=== PATIENT | male | born 1965 | race Caucasian/White ===

== ENCOUNTER → 2017-07-21 16:18 | Outpatient (CLI) | payer BC, SELFPAY ==
--- NOTE | 2017-07-08 | CYST_PTH ---
PATIENT: MITESH THOMPSON LOC: [facility] U#:[id number] AGE/SX: 59/M ROOM: RE07/21/[address]: Dr. Nguyễn Felder MD : 1965 BED: DIS: SPEC #: [id number] RECD: 07/08/17 13:28 STATUS: ZACHARY EASTMANAditi #: [id number] MARV: 07/08/17 00:[address]: Nguyễn Felder DEPT: SURGICAL PATHOLOGY RECD BY: Marcelino Chen ENTERED: 07/10/17 08:06 SP TYPE: Cyst OTHR DR: Dr. Nguyễn Markham MD Tissues: Neck, NOS Procedures: Surgery Specimen Level IV HEADER OPERATION: Cyst, left side of neck PRE-OP DIAGNOSIS: Cyst, left side of neck TISSUE SUBMITTED: Cyst, left side of neck MICROSCOPIC DIAGNOSIS Cyst, left side of neck, biopsy: Fragments of superficial epidermis. See comment. AM:kenya 07/11/17 COMMENT The findings are consistent with an epidermal inclusion cyst. Clinical correlation is necessary. MICROSCOPIC DESCRIPTION Slides are reviewed. GROSS DESCRIPTION Received in fixative is one container labeled with the patient's name and designated cyst, left side of neck. The specimen consists of multiple irregular fragments of knott tissue that in aggregate measure 2.2 x 0.6 x 0.2 cm. The specimen is totally submitted in one cassette. / AM:kenya 07/10/17 TC:5 CPT: 02199
== END ==
PROVIDERS: Family Provider Family Medicine; PCP Family Medicine; Visit Provider Family Medicine
DX: L72.0 Epidermal cyst (principal)
CPT/HCPCS: 87070; 87077; 87186; 87205; 88304; 88305

== ENCOUNTER 2017-11-09 08:15 | Outpatient (RCR) | payer BC, SELFPAY ==
[2017-11-02 09:33] VITALS: BP 130/89; PULSE 98; RESP 20; TEMP 37.3; BMI 50.8
--- NOTE | 2017-11-02 11:18 | RAD_ITS ---
STUDY: X-RAY - LEFT FOOT CLINICAL: Male, 51 years old. Great toe injury TECHNIQUE: 3 view(s) of the foot. COMPARISON: None. FINDINGS: There is pes planus. There are degenerative changes with joint space narrowing of the talocalcaneal articulation. There are degenerative changes or joint space narrowing of the calcaneocuboid joint. There are degenerative changes of the first metatarsophalangeal joint with bunion formation of the first metatarsal head. There is no evidence of fracture or dislocation. The osseous structures of the first digital ray appear intact. The soft tissue structures are unremarkable. RAD/Foot min 3 Views IMPRESSION: 1. Pes planus. 2. Degenerative changes as detailed above. 3. Degenerative changes of the first metatarsophalangeal joint with first metatarsal head bunion formation. There is no evidence of fracture or dislocation. No soft tissue gas or radiopaque foreign body is seen. Electronically Signed: Jayme Cox MD at 18:02 EDT , Service support ,
--- NOTE | 2017-11-02 11:18 | RAD_ITS ---
STUDY: X-RAY LEFT FOOT, FIRST TOE REASON FOR EXAM: Male, 51 years old. Trauma TECHNIQUE: 3 view(s) of the toe were obtained. COMPARISON: None. FINDINGS: There is first metatarsal head bunion formation. Mild degenerative changes of the first metatarsophalangeal joint. There is no evidence of fracture, dislocation, or lytic or blastic osseous process. There is no evidence of soft tissue gas or radiopaque soft tissue foreign body. RAD/Toe(s) Min 2 Views IMPRESSION: First metatarsal head bunion. Mild degenerative changes of the first metatarsophalangeal joint. Electronically Signed: Jayme Cox MD at 19:14 EDT , Service support ,
[2017-11-02 12:35] LABS: Hematocrit 50.2 % (40-54); Hemoglobin 17.2 g/dl (13.0-16.5); Mean Corp Hgb Conc 34.3 g/gl (32-36); Mean Corpuscular Volume 84.7 fL (80-94); Mean Platelet Vol. 10.3 fl (6.2-12.0); Platelet Count 232 K/mm3 (150-450); RBC Distribution Width CV 14.6 % (11.6-14.6); RBC Distribution Width SD 44.3 fl (35.1-43.9); Red Blood Count 5.93 M/mm3 (4.6-6.2); White Blood Count 8.5 K/mm3 (4.4-11.0)
[2017-11-02 12:44] LABS: Scan Indicated on CBC? Y/N NO
[2017-11-02 12:55] LABS: ALB/GLOB Ratio 0.9 RATIO (0.9-2.4); AST(SGOT) 13 U/L (15-37); Alanine Aminotransfer ALT/SGPT 24 U/L (16-61); Albumin, Serum 3.7 g/dL (3.2-5.0); Alkaline Phosphatase 64 U/L (45-117); Anion Gap 9 (5-15); BUN 21 mg/dL (7-18); BUN/Creat Ratio 20.8 RATIO (10-20); CRP 9.15 mg/L (0.0-3.0); Calcium,Total 9.2 mg/dL (8.5-10.1); Chloride 107 mmol/L (98-107); Creatinine, Serum 1.01 mg/dL (0.70-1.30); EST Glomerular Filtration Rate 83 mL/min (>60); Est Glom Filt Rate - Afr Amer 101 mL/min (>60); Globulin 4.1 g/dL (2.2-4.2); Glucose 107 mg/dL (74-106); Potassium 4.1 mmol/L (3.5-5.1); Protein, Total 7.8 g/dL (6.4-8.2); Sodium Level 140 mmol/L (136-145)
[2017-11-02 12:59] LABS: Erythrocyte Sedimentation Rate 7 mm/hr (0-15)
--- NOTE | 2017-11-02 13:42 | HP.PCM_ITS ---
(1) Chronic ulcer of left foot with fat layer exposed Status: Acute Current Visit: Yes Code(s): L97.522 - Non-pressure chronic ulcer of other part of left foot with fat layer exposed (2) Type 2 diabetes mellitus with diabetic polyneuropathy Status: Acute Current Visit: Yes Code(s): E11.42 - Type 2 diabetes mellitus with diabetic polyneuropathy (3) Delayed wound healing Status: Acute Current Visit: Yes Code(s): T14.8XXD - Other injury of unspecified body region, subsequent encounter (4) Edema, lower extremity Status: Acute Current Visit: Yes Code(s): R60.0 - Localized edema History of Present Illness Date of Service: 11/02/17 Chief Complaint: non healing post op wound of perineum s/p debridement of large perirectal abscess History of Wound: This 51 year old diabetic male presents to wound center today for ulcer of his left medial plantar great toe. Patient states that he has been trying to lose weight and has been working out on the treadmill at [employer]. He says after a while, he noticed some callus building up on his left great toe. He says the callus continued to grow but he did not think much of it. He showed his primary care physician who took some of the callus down and noticed a small ulcer. They tried to treat with keflex and local care, but it has not healed yet. Patient has since finished his keflex prescription and says he has been having daily dressing changes with the help of his , using neosporin and dressing. Patient denies any purulence or extending redness. He currently denies any feelings of nausea, vomiting, fever, or chills. Past Medical History Past Medical History: Chronic Problems HTN (hypertension) (Chronic) Diabetes type 2, uncontrolled (Chronic) Gout (Chronic) Surgical History: - - previous I&D's in his perineal area and right inguinal area because of infection. The right inguinal infection was drained in 2005. Allergies/Adverse Reactions: Allergies No Known Allergies Allergy (Verified 01/15/15 12:24) Home Medications: Ambulatory Orders Medication Instructions Recorded Allopurinol [Zyloprim] 300 mg PO DAILYCM 04/26/13 Metformin HCl [Glucophage] 1,000 mg PO BIDCM 04/26/13 Multivitamins,Therapeutic 1 tablet PO DAILY 04/26/13 [Multivitamin] [place]-3/Dha/Epa/Fish Oil [Fish Oil 1,200 mg PO BID 04/26/13 Dr 500 mg Softgel] Cinnamon 2,000 mg PO DAILY 11/09/14 Aspirin [Aspirin, Baby] 81 mg PO DAILY@0800 11/02/17 Empagliflozin [Jardiance] 25 mg PO DAILY 11/02/17 Glimepiride [Amaryl] 4 mg PO DAILY 11/02/17 Insulin Detemir [Levemir (BKC)] 50 units SC QHS 11/02/17 - Family History Maternal No pertinent history Paternal Renal Disease Smoking Status: Never smoker Review of Systems Constitutional: Reports: Weight Change. Denies: Chills, Fever Cardiovascular: Denies: Chest Pain, Palpitations Respiratory: Denies: Cough, Shortness of Breath Gastrointestinal: Denies: Diarrhea, Nausea, Vomiting Skin: Reports: Wounds Neurological: Reports: - - diabetic neuropathy - Physical Exam Vital Signs Temp Pulse Resp BP 99.1 F 98 20 H 130/89 H 11/02/17 09:33 11/02/17 09:33 11/02/17 09:33 11/02/17 09:33 General: Alert, Oriented x3, Cooperative, No apparent distress Extremities: Capillary Refill Less than 3 Seconds, No Calf Tenderness - Negative Suellen and Santiago sign, Edema - Slight lower extremity, Peripheral Pulses Normal - DP and PT pulses palpable Skin: Ulcer/ Wound - Ulcer to the left plantar medial hallux with fat layer exposed. The base is mixture of granular tissue, adherent slough, fibrin, biofilm, and surrounding hyperkeratotic tissue. There is no purulence, no malodor, no extending cellulitis, no increase in warmth, no probing to bone, no tracking, and no undermining appreciated. Wound Measurements and Assessment WC - Nurse 1 - General Ulcer Measurement Start: 11/02/17 09:33 Freq: Status: Active Protocol: Activity Type Activity Date Activity User E-Sign Co-Sign Detail Recorded Client Recorded Date Recorded By Document 11/02/17 09:33 TALIB [id number] 11/02/17 09:46 TALIB 11/02/17 09:33 Wound Center Nurse 1 [Ulcer Assessment] 2-left hallux -Combined with other wound No -Current Size (cm) - Length 0.9 -Current Size (cm) - Width 0.5 -Current Size (cm) - Depth 0.3 -Total Square Cm 0.45 -Photo Taken Yes -Epithelialization None Present -Tunneling No -Undermining/Tunneling No -Circular Undermining No -Exudate Amt Small (1-33%) -Exudate Type Serosanguineous -Wound Margin Flat & Intact -Granulation Amt Medium (34-66%) -Granulation Quality Red -Slough/Fibrin Yes -Necrosis Amt Medium (34-66%) -Necrotic Tissue Type Adherent Slough -Structure Exposed N/A -Texture (Keila-wound Skin Appearance) Assessed Callus Localized Edema -Moisture (Keila-wound Skin Appearance Assessed ) Dry/Scaly -Color (Keila-wound Skin Appearance) Assessed -Temperature (Keila-wound Skin No Abnormality Appearance) (Pt Warm) -Tenderness on Palpation (Keila-wound No Skin Appearance) -Ulcer Cleansing Rinsed/ Irrigated with Saline -Foul Odor after Cleansing No -Anesthetic Used 4% Lidocaine Solution [Edema Assessment] -Lower Limb Edema Present Yes -Right Calf (cm) 54.2 -Right Ankle (cm) 27.3 -Left Calf (cm) 50.0 -Left Ankle (cm) 28.0 WC - Nurse 2 - General Ulcer CM Notes Start: 11/02/17 09:33 Freq: Status: Active Protocol: Activity Type Activity Date Activity User E-Sign Co-Sign Detail Recorded Client Recorded Date Recorded By Document 11/02/17 10:19 SALOME [id number] 11/02/17 10:42 11/02/17 10:19 Wound Center Nurse 2 [Procedure/Treatment] 2-left hallux -Time 10:41 -Correct Patient Yes -Correct Side, Site, Position Yes -Correct Procedure Yes -Procedure Performed Yes -Type of Procedure Debridement -Clinical Debridement Subcutaneous -Post Debridement Size (cm) - Length 1.3 -Post Debridement Size (cm) - Width 0.9 -Post Debridement Size (cm) - Depth 0.2 -Total Square Cm 1.17 -Wound/Ulcer Outcome Not Healed -Ulcer Cleansing Rinsed/ Irrigated with Saline -Foul Odor after Cleansing No -Bioengineered Tissue No -Bleeding Controlled with NA -Treatment Response Procedure Tolerated Well [See Physician Procedure note for Specifics] Pain Scale: 0-10 Numeric [Pain] -Is Patient Pain Free? Yes Musculoskeletal: - - Possible old Charcot deformation, but no rocker-bottom foot type Neurological: - - Protective sensation absent to all sites tested to the plantar foot as tested with a 5.07 [place] Sheree monofilament. Psych/Mental Status: Normal Affect, Appropriate Debridement Note Post-Debridement Measurements/Treatment WC - Nurse 2 - General Ulcer CM Notes Start: 11/02/17 09:33 Freq: Status: Active Protocol: Activity Type Activity Date Activity User E-Sign Co-Sign Detail Recorded Client Recorded Date Recorded By Document 11/02/17 10:19 SALOME [id number] 11/02/17 10:42 SALOME 11/02/17 10:19 Wound Center Nurse 2 2-left hallux -Time 10:41 -Correct Patient Yes -Correct Side, Site, Position Yes -Correct Procedure Yes -Procedure Performed Yes -Type of Procedure Debridement -Clinical Debridement Subcutaneous -Post Debridement Size (cm) - Length 1.3 -Post Debridement Size (cm) - Width 0.9 -Post Debridement Size (cm) - Depth 0.2 -Total Square Cm 1.17 -Wound/Ulcer Outcome Not Healed -Ulcer Cleansing Rinsed/ Irrigated with Saline -Foul Odor after Cleansing No -Bioengineered Tissue No -Bleeding Controlled with NA -Treatment Response Procedure Tolerated Well Pain Scale: 0-10 Numeric Is Patient Pain Free? Yes Wound debrided: Left plantar medial hallux Laterality: Left Wound Grade/Stage: 1 Type of Debridement: Excisional debridement Anesthesia Used: 4% Lidocaine Solution Depth: in the subcutaneous layer Percentage of wound debrided: 100 Instrument Used: #15 blade Tissue Removed: Adherent slough, fibrin, biofilm, hyperkeratotic tissue Severity: Fat Layer Exposed Amount of bleeding with debridement: Mild Bleeding Controlled with: Pressure Patient tolerated procedure well Assessment/Plan Active Problems Chronic ulcer of left foot with fat layer exposed (Acute) Type 2 diabetes mellitus with diabetic polyneuropathy (Acute) Delayed wound healing (Acute) Edema, lower extremity (Acute) Assessment: Ulcer with fat layer exposed to left plantar medial hallux. DM 2 with neuropathy Plan: Initial patient examination and evaluation was performed today. A subcutaneous debridement was performed as noted in the clinical panel. Once complete, the ulcer site was carefully cleansed with normal sterile saline, and then dressed with Aquacel Ag and a dry sterile dressing. The patient was instructed to change his dressing in this manner daily. The importance of offloading the area was discussed at length with the patient today. He was dispensed a surgical shoe with offloading padding applied to the base of the shoe to offload the ulcer site. The patient is currently off work, and was instructed to stay off of his feet as much as possible, but was instructed to use the surgical shoe at all times if he absolutely had to be up on his feet. A prescription was given for the patient to go to [facility] in order to be fitted for diabetic shoes with offloading to the ulcer sites. Order for 3 view x ray of the left foot were placed. Will moniotor for results. Aerobic and anaerobic cultures were taken of the ulcer and will also be tested for MRSA pcr. Baseline lab work was also ordered today including CBC with differential, CMP, pre-albumin, ESR, CRP. We will also monitor for these results prior to next visit. Patient's hemoglobin A1c is 7.3. I also recommended nutritional supplementation with a high protein diet in order to optimize ulcer healing. I also discussed the importance of tight glycemic control with this patient. He says that he understands this. The patient was educated on all signs and symptoms of local and systemic infection, and was instructed to go to the emergency room immediately should he notice any of these. All in any other questions were answered to the patient's satisfaction. Patient will follow-up at the wound center in 1 week, or sooner if needed.
[2017-11-02 20:00] LABS: M R Staph aureus DNA By PCR Negative (Negative); Probe Check PASS; Staph aureus DNA By PCR NEGATIVE (Negative)
[2017-11-09 08:37] VITALS: BP 145/87; PULSE 81; RESP 16; TEMP 36.4; BMI 50.8
--- NOTE | 2017-11-09 11:18 | PCM.WC.PN ---
(1) Chronic ulcer of left foot with fat layer exposed Status: Acute Current Visit: Yes Code(s): L97.522 - Non-pressure chronic ulcer of other part of left foot with fat layer exposed (2) Type 2 diabetes mellitus with diabetic polyneuropathy Status: Acute Current Visit: Yes Code(s): E11.42 - Type 2 diabetes mellitus with diabetic polyneuropathy (3) Delayed wound healing Status: Acute Current Visit: Yes Code(s): T14.8XXD - Other injury of unspecified body region, subsequent encounter (4) Edema, lower extremity Status: Acute Current Visit: Yes Code(s): R60.0 - Localized edema Type of Wound Date of Service: 11/09/17 Chief Complaint: non healing post op wound of perineum s/p debridement of large perirectal abscess History of Wound: This 51 year old diabetic male presents to wound center today for ulcer of his left medial plantar great toe. Patient states that he has been trying to lose weight and has been working out on the treadmill at [employer]. He says after a while, he noticed some callus building up on his left great toe. He says the callus continued to grow but he did not think much of it. He showed his primary care physician who took some of the callus down and noticed a small ulcer. They tried to treat with keflex and local care, but it has not healed yet. Patient has since finished his keflex prescription and says he has been having daily dressing changes with the help of his , using neosporin and dressing. Patient denies any purulence or extending redness. He currently denies any feelings of nausea, vomiting, fever, or chills. Progress of Wound: Patient presents for follow up of ulcer to left great toe. Ulcer appears slighty better today. Patient says he has been using the offloading surgical shoe as much as possible and trying to keep weight off of the area the best he can. He has tried using cruthces, but felt too unstable. He did well with dressing changes over the last week. He denies any feelings of nausea, vomiting, fever, chills, or shortness of breath. - Physical Exam Vital Signs Temp Pulse Resp BP 97.5 F L 81 16 145/87 H 11/09/17 08:37 11/09/17 08:37 11/09/17 08:37 11/09/17 08:37 General: Alert, Oriented x3, Cooperative, No apparent distress Extremities: Capillary Refill Less than 3 Seconds, No Calf Tenderness - negative didi and mercedes sign, Edema - slight lower extremity, Peripheral Pulses Normal - DP and PT pulses palpable Skin: Ulcer/ Wound - Ulcer to the left plantar medial hallux with fat layer exposed. The base is still a mixture of granular tissue, adherent slough, fibrin, biofilm, and surrounding hyperkeratotic tissue. Less hyperkeratotic tissue appreciated today. There continues to be no purulence, no malodor, no extending cellulitis, no increase in warmth, no probing to bone, no tracking, and no undermining appreciated. Wound Measurements and Assessment WC - Nurse 1 - General Ulcer Measurement Start: 11/02/17 09:33 Freq: Status: Active Protocol: Activity Type Activity Date Activity User E-Sign Co-Sign Detail Recorded Client Recorded Date Recorded By Document 11/09/17 08:37 JS [id number] 11/09/17 08:40 JS Document 11/09/17 08:42 RB [id number] 11/09/17 08:45 RB 11/09/17 11/09/17 08:37 08:42 Wound Center Nurse 1 [Ulcer Assessment] 2-left hallux -Combined with other wound No No -Current Size (cm) - Length 1 -Current Size (cm) - Width 0.6 -Current Size (cm) - Depth 0.1 -Total Square Cm 0.6 -Date of Last Picture (Recall this 11/02/17 field) -Photo Taken No No -Epithelialization Small 1-33% -Tunneling No -Undermining/Tunneling No -Circular Undermining No -Classification - Thickness Full Thickness without Exposed Support Structure -Exudate Amt Small (1-33%) -Exudate Type Serosanguineous -Wound Margin Distinct, Outline Attached -Granulation Amt Medium (34-66%) -Granulation Quality [place] -Slough/Fibrin Yes -Necrosis Amt Small (1-33%) -Necrotic Tissue Type Adherent Slough -Structure Exposed N/A -Texture (Keila-wound Skin Appearance) Assessed Callus -Moisture (Keila-wound Skin Appearance Assessed ) -Color (Keila-wound Skin Appearance) Assessed -Temperature (Keila-wound Skin No Abnormality Appearance) (Pt Warm) -Tenderness on Palpation (Keila-wound No Skin Appearance) -Ulcer Cleansing Rinsed/ Irrigated with Saline -Foul Odor after Cleansing No -Anesthetic Used 5% Lidocaine Gel - Nurse 2 - General Ulcer CM Notes Start: 11/02/17 09:33 Freq: Status: Active Protocol: Activity Type Activity Date Activity User E-Sign Co-Sign Detail Recorded Client Recorded Date Recorded By Document 11/09/17 09:17 [id number] 11/09/17 09:27 11/09/17 09:17 Wound Center Nurse 2 [Procedure/Treatment] -Time 09:20 -Correct Patient Yes -Correct Side, Site, Position Yes -Correct Procedure Yes -Procedure Performed Yes -Type of Procedure Debridement -Clinical Debridement Subcutaneous -Post Debridement Size (cm) - Length 0.9 -Post Debridement Size (cm) - Width 0.6 -Post Debridement Size (cm) - Depth 0.2 -Total Square Cm 0.54 -Wound/Ulcer Outcome Not Healed -Ulcer Cleansing Rinsed/ Irrigated with Saline -Foul Odor after Cleansing No -Bioengineered Tissue No -Topical Lidocaine (%) 4 -Lidocaine (ml) 5 -Bleeding Controlled with NA -Treatment Response Procedure Tolerated Well [See Physician Procedure note for Specifics] Pain Scale: 0-10 Numeric [Pain] -Is Patient Pain Free? Yes Musculoskeletal: - - No pain with manipulation of ulcer site Neurological: - - Protective sensation absent to all sites tested to the plantar foot as tested with a 5.07 [place] Sheree monofilament Psych/Mental Status: Normal Affect, Appropriate Debridement Note Post-Debridement Measurements/Treatment WC - Nurse 2 - General Ulcer CM Notes Start: 11/02/17 09:33 Freq: Status: Active Protocol: Activity Type Activity Date Activity User E-Sign Co-Sign Detail Recorded Client Recorded Date Recorded By Document 11/02/17 10:19 [id number] 11/02/17 10:42 JS Document 11/09/17 09:17 [id number] 11/09/17 09:27 JS 11/02/17 11/09/17 10:19 09:17 Wound Center Nurse 2 2-left hallux -Time 10:41 09:20 -Correct Patient Yes Yes -Correct Side, Site, Position Yes Yes -Correct Procedure Yes Yes -Procedure Performed Yes Yes -Type of Procedure Debridement Debridement -Clinical Debridement Subcutaneous Subcutaneous -Post Debridement Size (cm) - Length 1.3 0.9 -Post Debridement Size (cm) - Width 0.9 0.6 -Post Debridement Size (cm) - Depth 0.2 0.2 -Total Square Cm 1.17 0.54 -Wound/Ulcer Outcome Not Healed Not Healed -Ulcer Cleansing Rinsed/ Rinsed/ Irrigated with Irrigated with Saline Saline -Foul Odor after Cleansing No No -Bioengineered Tissue No No -Topical Lidocaine (%) 4 -Lidocaine (ml) 5 -Bleeding Controlled with NA NA -Treatment Response Procedure Procedure Tolerated Well Tolerated Well Pain Scale: 0-10 Numeric Is Patient Pain Free? Yes Yes Wound debrided: left plantar medial hallux Laterality: Left Type of Debridement: Excisional debridement Anesthesia Used: 4% Lidocaine Solution Depth: in the subcutaneous layer Percentage of wound debrided: 100 Instrument Used: #15 blade, - - tissue nipper Tissue Removed: Adherent slough, fibrin, biofilm, hyperkeratotic tissue Severity: Fat Layer Exposed Amount of bleeding with debridement: Mild Bleeding Controlled with: Pressure Patient tolerated procedure well Assessment/Plan Clinical Impression(s) from Imaging Studies Foot X-Ray 11/02/17 11:18 IMPRESSION: 1. Pes planus. 2. Degenerative changes as detailed above. 3. Degenerative changes of the first metatarsophalangeal joint with first metatarsal head bunion formation. There is no evidence of fracture or dislocation. No soft tissue gas or radiopaque foreign body is seen. Electronically Signed: Jayme Cox MD at 18:02 EDT , Service support , Toe X-Ray 11/02/17 11:18 IMPRESSION: First metatarsal head bunion. Mild degenerative changes of the first metatarsophalangeal joint. Electronically Signed: Jayme Cox MD at 19:14 EDT , Service support , Active Problems Chronic ulcer of left foot with fat layer exposed (Acute) Type 2 diabetes mellitus with diabetic polyneuropathy (Acute) Delayed wound healing (Acute) Edema, lower extremity (Acute) Assessment: Ulcer with fat layer exposed to left plantar medial hallux. DM 2 with neuropathy Plan: Patient was carefully examined and evaluated again today. A subcutaneous debridement was performed as noted in the clinical panel. Once complete, the ulcer site was carefully cleansed with normal sterile saline, and then dressed with slightly moistened lluvia and a dry sterile dressing. The patient was instructed to change his dressing in this manner daily. The importance of offloading the area was discussed at length with the patient today. He has been wearing surgical shoe with offloading padding applied to the base of the shoe to offload the ulcer site as much as he can. He admits to walking without it from his couch to his bathroom from time to time. The patient is currently off work, and was instructed to stay off of his feet as much as possible, but was instructed to use the surgical shoe at all times if he absolutely had to be up on his feet. A prescription was given for the patient to go to [employer] in order to be fitted for diabetic shoes with offloading to the ulcer sites and will see them on November 17. Order for 3 view x ray of the left foot were placed, and the results were reviewed with the patient today. There were degenerative changes appreciated as well as bunion deformity, but there was no soft tissue emphysema or current signs of osteomyelitis appreciated. Wound culture results were reviwed and the patient was placed on a 10 day course of clindamycin and cephalexin. Baseline lab work was also ordered last week and these results were reviewed. Patient's hemoglobin A1c is 7.3. I also recommended nutritional supplementation with a high protein diet in order to optimize ulcer healing. I also discussed the importance of tight glycemic control with this patient. He says that he understands this. The patient was educated on all signs and symptoms of local and systemic infection, and was instructed to go to the emergency room immediately should he notice any of these. All in any other questions were answered to the patient's satisfaction. Patient will follow-up at the wound center in 1 week, or sooner if needed.
--- NOTE | 2017-11-09 11:30 | PN.PCM_ITS ---
(1) Chronic ulcer of left foot with fat layer exposed Status: Acute Current Visit: Yes Code(s): L97.522 - Non-pressure chronic ulcer of other part of left foot with fat layer exposed (2) Type 2 diabetes mellitus with diabetic polyneuropathy Status: Acute Current Visit: Yes Code(s): E11.42 - Type 2 diabetes mellitus with diabetic polyneuropathy (3) Delayed wound healing Status: Acute Current Visit: Yes Code(s): T14.8XXD - Other injury of unspecified body region, subsequent encounter (4) Edema, lower extremity Status: Acute Current Visit: Yes Code(s): R60.0 - Localized edema Type of Wound Date of Service: 11/09/17 Chief Complaint: non healing post op wound of perineum s/p debridement of large perirectal abscess History of Wound: This 51 year old diabetic male presents to wound center today for ulcer of his left medial plantar great toe. Patient states that he has been trying to lose weight and has been working out on the treadmill at [employer]. He says after a while, he noticed some callus building up on his left great toe. He says the callus continued to grow but he did not think much of it. He showed his primary care physician who took some of the callus down and noticed a small ulcer. They tried to treat with keflex and local care, but it has not healed yet. Patient has since finished his keflex prescription and says he has been having daily dressing changes with the help of his , using neosporin and dressing. Patient denies any purulence or extending redness. He currently denies any feelings of nausea, vomiting, fever, or chills. Progress of Wound: Patient presents for follow up of ulcer to left great toe. Ulcer appears slighty better today. Patient says he has been using the offloading surgical shoe as much as possible and trying to keep weight off of the area the best he can. He has tried using cruthces, but felt too unstable. He did well with dressing changes over the last week. He denies any feelings of nausea, vomiting, fever, chills, or shortness of breath. - Physical Exam Vital Signs Temp Pulse Resp BP 97.5 F L 81 16 145/87 H 11/09/17 08:37 11/09/17 08:37 11/09/17 08:37 11/09/17 08:37 General: Alert, Oriented x3, Cooperative, No apparent distress Extremities: Capillary Refill Less than 3 Seconds, No Calf Tenderness - negative didi and mercedes sign, Edema - slight lower extremity, Peripheral Pulses Normal - DP and PT pulses palpable Skin: Ulcer/ Wound - Ulcer to the left plantar medial hallux with fat layer exposed. The base is still a mixture of granular tissue, adherent slough, fibrin, biofilm, and surrounding hyperkeratotic tissue. Less hyperkeratotic tissue appreciated today. There continues to be no purulence, no malodor, no extending cellulitis, no increase in warmth, no probing to bone, no tracking, and no undermining appreciated. Wound Measurements and Assessment WC - Nurse 1 - General Ulcer Measurement Start: 11/02/17 09:33 Freq: Status: Active Protocol: Activity Type Activity Date Activity User E-Sign Co-Sign Detail Recorded Client Recorded Date Recorded By Document 11/09/17 08:37 JS [id number] 11/09/17 08:40 JS Document 11/09/17 08:42 RB [id number] 11/09/17 08:45 RB 11/09/17 11/09/17 08:37 08:42 Wound Center Nurse 1 [Ulcer Assessment] 2-left hallux -Combined with other wound No No -Current Size (cm) - Length 1 -Current Size (cm) - Width 0.6 -Current Size (cm) - Depth 0.1 -Total Square Cm 0.6 -Date of Last Picture (Recall this 11/02/17 field) -Photo Taken No No -Epithelialization Small 1-33% -Tunneling No -Undermining/Tunneling No -Circular Undermining No -Classification - Thickness Full Thickness without Exposed Support Structure -Exudate Amt Small (1-33%) -Exudate Type Serosanguineous -Wound Margin Distinct, Outline Attached -Granulation Amt Medium (34-66%) -Granulation Quality [place] -Slough/Fibrin Yes -Necrosis Amt Small (1-33%) -Necrotic Tissue Type Adherent Slough -Structure Exposed N/A -Texture (Keila-wound Skin Appearance) Assessed Callus -Moisture (Keila-wound Skin Appearance Assessed ) -Color (Keila-wound Skin Appearance) Assessed -Temperature (Keila-wound Skin No Abnormality Appearance) (Pt Warm) -Tenderness on Palpation (Keila-wound No Skin Appearance) -Ulcer Cleansing Rinsed/ Irrigated with Saline -Foul Odor after Cleansing No -Anesthetic Used 5% Lidocaine Gel - Nurse 2 - General Ulcer CM Notes Start: 11/02/17 09:33 Freq: Status: Active Protocol: Activity Type Activity Date Activity User E-Sign Co-Sign Detail Recorded Client Recorded Date Recorded By Document 11/09/17 09:17 [id number] 11/09/17 09:27 11/09/17 09:17 Wound Center Nurse 2 [Procedure/Treatment] -Time 09:20 -Correct Patient Yes -Correct Side, Site, Position Yes -Correct Procedure Yes -Procedure Performed Yes -Type of Procedure Debridement -Clinical Debridement Subcutaneous -Post Debridement Size (cm) - Length 0.9 -Post Debridement Size (cm) - Width 0.6 -Post Debridement Size (cm) - Depth 0.2 -Total Square Cm 0.54 -Wound/Ulcer Outcome Not Healed -Ulcer Cleansing Rinsed/ Irrigated with Saline -Foul Odor after Cleansing No -Bioengineered Tissue No -Topical Lidocaine (%) 4 -Lidocaine (ml) 5 -Bleeding Controlled with NA -Treatment Response Procedure Tolerated Well [See Physician Procedure note for Specifics] Pain Scale: 0-10 Numeric [Pain] -Is Patient Pain Free? Yes Musculoskeletal: - - No pain with manipulation of ulcer site Neurological: - - Protective sensation absent to all sites tested to the plantar foot as tested with a 5.07 [place] Sheree monofilament Psych/Mental Status: Normal Affect, Appropriate Debridement Note Post-Debridement Measurements/Treatment WC - Nurse 2 - General Ulcer CM Notes Start: 11/02/17 09:33 Freq: Status: Active Protocol: Activity Type Activity Date Activity User E-Sign Co-Sign Detail Recorded Client Recorded Date Recorded By Document 11/02/17 10:19 [id number] 11/02/17 10:42 JS Document 11/09/17 09:17 [id number] 11/09/17 09:27 JS 11/02/17 11/09/17 10:19 09:17 Wound Center Nurse 2 2-left hallux -Time 10:41 09:20 -Correct Patient Yes Yes -Correct Side, Site, Position Yes Yes -Correct Procedure Yes Yes -Procedure Performed Yes Yes -Type of Procedure Debridement Debridement -Clinical Debridement Subcutaneous Subcutaneous -Post Debridement Size (cm) - Length 1.3 0.9 -Post Debridement Size (cm) - Width 0.9 0.6 -Post Debridement Size (cm) - Depth 0.2 0.2 -Total Square Cm 1.17 0.54 -Wound/Ulcer Outcome Not Healed Not Healed -Ulcer Cleansing Rinsed/ Rinsed/ Irrigated with Irrigated with Saline Saline -Foul Odor after Cleansing No No -Bioengineered Tissue No No -Topical Lidocaine (%) 4 -Lidocaine (ml) 5 -Bleeding Controlled with NA NA -Treatment Response Procedure Procedure Tolerated Well Tolerated Well Pain Scale: 0-10 Numeric Is Patient Pain Free? Yes Yes Wound debrided: left plantar medial hallux Laterality: Left Type of Debridement: Excisional debridement Anesthesia Used: 4% Lidocaine Solution Depth: in the subcutaneous layer Percentage of wound debrided: 100 Instrument Used: #15 blade, - - tissue nipper Tissue Removed: Adherent slough, fibrin, biofilm, hyperkeratotic tissue Severity: Fat Layer Exposed Amount of bleeding with debridement: Mild Bleeding Controlled with: Pressure Patient tolerated procedure well Assessment/Plan Clinical Impression(s) from Imaging Studies Foot X-Ray 11/02/17 11:18 IMPRESSION: 1. Pes planus. 2. Degenerative changes as detailed above. 3. Degenerative changes of the first metatarsophalangeal joint with first metatarsal head bunion formation. There is no evidence of fracture or dislocation. No soft tissue gas or radiopaque foreign body is seen. Electronically Signed: Jayme Cox MD at 18:02 EDT , Service support , Toe X-Ray 11/02/17 11:18 IMPRESSION: First metatarsal head bunion. Mild degenerative changes of the first metatarsophalangeal joint. Electronically Signed: Jayme Cox MD at 19:14 EDT , Service support , Active Problems Chronic ulcer of left foot with fat layer exposed (Acute) Type 2 diabetes mellitus with diabetic polyneuropathy (Acute) Delayed wound healing (Acute) Edema, lower extremity (Acute) Assessment: Ulcer with fat layer exposed to left plantar medial hallux. DM 2 with neuropathy Plan: Patient was carefully examined and evaluated again today. A subcutaneous debridement was performed as noted in the clinical panel. Once complete, the ulcer site was carefully cleansed with normal sterile saline, and then dressed with slightly moistened lluvia and a dry sterile dressing. The patient was instructed to change his dressing in this manner daily. The importance of offloading the area was discussed at length with the patient today. He has been wearing surgical shoe with offloading padding applied to the base of the shoe to offload the ulcer site as much as he can. He admits to walking without it from his couch to his bathroom from time to time. The patient is currently off work, and was instructed to stay off of his feet as much as possible, but was instructed to use the surgical shoe at all times if he absolutely had to be up on his feet. A prescription was given for the patient to go to [place] in order to be fitted for diabetic shoes with offloading to the ulcer sites and will see them on November 17. Order for 3 view x ray of the left foot were placed, and the results were reviewed with the patient today. There were degenerative changes appreciated as well as bunion deformity, but there was no soft tissue emphysema or current signs of osteomyelitis appreciated. Wound culture results were reviwed and the patient was placed on a 10 day course of clindamycin and cephalexin. Baseline lab work was also ordered last week and these results were reviewed. Patient's hemoglobin A1c is 7.3. I also recommended nutritional supplementation with a high protein diet in order to optimize ulcer healing. I also discussed the importance of tight glycemic control with this patient. He says that he understands this. The patient was educated on all signs and symptoms of local and systemic infection, and was instructed to go to the emergency room immediately should he notice any of these. All in any other questions were answered to the patient's satisfaction. Patient will follow-up at the wound center in 1 week, or sooner if needed.
== END 2017-11-09 23:59 ==
LOC: WC 08:15
PROVIDERS: Family Provider Family Medicine; PCP Family Medicine; Visit Provider Podiatrist
DX: L97.522 Non-pressure chronic ulcer of other part of left foot with fat layer exposed (principal); E11.42 Type 2 diabetes mellitus with diabetic polyneuropathy; T14.8XXD Other injury of unspecified body region, subsequent encounter; R60.0 Localized edema; I10 Essential (primary) hypertension; E11.9 Type 2 diabetes mellitus without complications; M10.9 Gout, unspecified
CPT/HCPCS: 11042; 36415; 73630; 73660; 80053; 84134; 85027; 85652; 86140; 87070; 87075; 87077; 87186; 87205; 87640; 99212; G0463

== ENCOUNTER 2017-12-07 08:00 | Outpatient (RCR) | payer BC, SELFPAY ==
[2017-11-10 01:16] VITALS: BP 145/87; PULSE 81; RESP 16; TEMP 36.4
[2017-11-23 08:33] VITALS: BP 141/87; PULSE 96; RESP 20; TEMP 36.3
--- NOTE | 2017-11-23 09:42 | PCM.WC.PN ---
(1) Chronic ulcer of left foot with fat layer exposed Status: Acute Current Visit: No Code(s): L97.522 - Non-pressure chronic ulcer of other part of left foot with fat layer exposed (2) Type 2 diabetes mellitus with diabetic polyneuropathy Status: Acute Current Visit: No Code(s): E11.42 - Type 2 diabetes mellitus with diabetic polyneuropathy (3) Delayed wound healing Status: Acute Current Visit: No Code(s): T14.8XXD - Other injury of unspecified body region, subsequent encounter (4) Edema, lower extremity Status: Acute Current Visit: No Code(s): R60.0 - Localized edema Type of Wound Date of Service: 11/23/17 Chief Complaint: non healing post op wound of perineum s/p debridement of large perirectal abscess History of Wound: This 51 year old diabetic male presents to wound center today for ulcer of his left medial plantar great toe. Patient states that he has been trying to lose weight and has been working out on the treadmill at [employer]. He says after a while, he noticed some callus building up on his left great toe. He says the callus continued to grow but he did not think much of it. He showed his primary care physician who took some of the callus down and noticed a small ulcer. They tried to treat with keflex and local care, but it has not healed yet. Patient has since finished his keflex prescription and says he has been having daily dressing changes with the help of his , using neosporin and dressing. Patient denies any purulence or extending redness. He currently denies any feelings of nausea, vomiting, fever, or chills. Progress of Wound: Patient presents for follow up of ulcer to left great toe. Ulcer slowly improving. Patient says he has been using the offloading surgical shoe as much as possible and trying to keep weight off of the area the best he can. He has tried using cruthces, but felt too unstable. Was fitted for diabetic offloading shoes at [facility] and will pick them up in a couple of weeks. He did well with dressing changes over the last week. He denies any feelings of nausea, vomiting, fever, chills, or shortness of breath. - Physical Exam Vital Signs Temp Pulse Resp BP 97.3 F L 96 20 H 141/87 H 11/23/17 08:33 11/23/17 08:33 11/23/17 08:33 11/23/17 08:33 General: Alert, Oriented x3, Cooperative, No apparent distress Extremities: Capillary Refill Less than 3 Seconds, No Calf Tenderness - negative didi and mercedes sign, Edema - slight lower extremity edema, Peripheral Pulses Normal - DP and PT pulses palpable. Skin: Ulcer/ Wound - Ulcer to the left plantar medial hallux with fat layer exposed. The base is still a mixture of granular tissue, adherent slough, fibrin, biofilm, and surrounding hyperkeratotic tissue. There continues to be no purulence, no malodor, no extending cellulitis, no increase in warmth, no probing to bone, no tracking, and no undermining appreciated. Wound Measurements and Assessment WC - Nurse 1 - General Ulcer Measurement Start: 11/23/17 08:32 Freq: Status: Active Protocol: Activity Type Activity Date Activity User E-Sign Co-Sign Detail Recorded Client Recorded Date Recorded By Document 11/23/17 08:33 DL [id number] 11/23/17 08:37 DL 11/23/17 08:33 Wound Center Nurse 1 [Ulcer Assessment] 2-left hallux -Current Size (cm) - Length 0.7 -Current Size (cm) - Width 0.5 -Current Size (cm) - Depth 0.1 -Total Square Cm 0.35 -Photo Taken No -Exudate Amt Small (1-33%) -Exudate Type Serosanguineous -Wound Margin Thickened -Granulation Amt Small (1-33%) -Granulation Quality Red -Necrosis Amt Small (1-33%) -Necrotic Tissue Type Adherent Slough -Structure Exposed N/A -Texture (Keila-wound Skin Appearance) Callus -Moisture (Keila-wound Skin Appearance Dry/Scaly ) -Color (Keila-wound Skin Appearance) No Abnormality -Temperature (Keila-wound Skin No Abnormality Appearance) (Pt Warm) -Tenderness on Palpation (Keila-wound No Skin Appearance) -Ulcer Cleansing Rinsed/ Irrigated with Saline -Foul Odor after Cleansing No -Anesthetic Used 4% Lidocaine Solution WC - Nurse 2 - General Ulcer CM Notes Start: 11/23/17 08:32 Freq: Status: Active Protocol: Activity Type Activity Date Activity User E-Sign Co-Sign Detail Recorded Client Recorded Date Recorded By Document 11/23/17 09:27 JS [id number] 11/23/17 09:34 11/23/17 09:27 Wound Center Nurse 2 [Procedure/Treatment] -Time 09:32 -Correct Patient Yes -Correct Side, Site, Position Yes -Correct Procedure Yes -Procedure Performed Yes -Type of Procedure Debridement -Clinical Debridement Subcutaneous -Post Debridement Size (cm) - Length 0.8 -Post Debridement Size (cm) - Width 0.4 -Post Debridement Size (cm) - Depth 0.2 -Total Square Cm 0.32 -Wound/Ulcer Outcome Not Healed -Ulcer Cleansing Rinsed/ Irrigated with Saline -Foul Odor after Cleansing No -Bioengineered Tissue No -Topical Lidocaine (%) 4 -Lidocaine (ml) 5 -Bleeding Controlled with NA -Treatment Response Procedure Tolerated Well [See Physician Procedure note for Specifics] Pain Scale: 0-10 Numeric [Pain] -Is Patient Pain Free? Yes Musculoskeletal: - - No pain noted with manipulation of ulcer site Neurological: - - Protective sensation absent to all sites tested to the plantar foot as tested with a 5.07 [place] Sheree monofilament Psych/Mental Status: Normal Affect, Appropriate Debridement Note Post-Debridement Measurements/Treatment WC - Nurse 2 - General Ulcer CM Notes Start: 11/23/17 08:32 Freq: Status: Active Protocol: Activity Type Activity Date Activity User E-Sign Co-Sign Detail Recorded Client Recorded Date Recorded By Document 11/23/17 09:27 [id number] 11/23/17 09:34 11/23/17 09:27 Wound Center Nurse 2 2-left hallux -Time 09:32 -Correct Patient Yes -Correct Side, Site, Position Yes -Correct Procedure Yes -Procedure Performed Yes -Type of Procedure Debridement -Clinical Debridement Subcutaneous -Post Debridement Size (cm) - Length 0.8 -Post Debridement Size (cm) - Width 0.4 -Post Debridement Size (cm) - Depth 0.2 -Total Square Cm 0.32 -Wound/Ulcer Outcome Not Healed -Ulcer Cleansing Rinsed/ Irrigated with Saline -Foul Odor after Cleansing No -Bioengineered Tissue No -Topical Lidocaine (%) 4 -Lidocaine (ml) 5 -Bleeding Controlled with NA -Treatment Response Procedure Tolerated Well Pain Scale: 0-10 Numeric Is Patient Pain Free? Yes Wound debrided: left plantar medial hallux Laterality: Left Type of Debridement: Excisional debridement Anesthesia Used: 4% Lidocaine Solution Depth: in the subcutaneous layer Percentage of wound debrided: 100 Instrument Used: #15 blade Tissue Removed: Adherent slough, fibrin, biofilm, hyperkeratotic tissue Severity: Fat Layer Exposed Amount of bleeding with debridement: Mild Bleeding Controlled with: Pressure Patient tolerated procedure well Assessment/Plan Assessment: Ulcer with fat layer exposed to left plantar medial hallux. DM 2 with neuropathy Plan: Patient was carefully examined and evaluated again today. Another subcutaneous debridement was performed as noted in the clinical panel. Once complete, the ulcer site was carefully cleansed with normal sterile saline, and then dressed with slightly moistened lluvia and a dry sterile dressing. The patient was instructed to change his dressing in this manner daily. He says his helps him with this. The importance of offloading the area was again stressed today. He has been wearing surgical shoe with offloading padding applied to the base of the shoe to offload the ulcer site as much as he can. He admits to walking without it from his couch to his bathroom from time to time. The patient is currently off work, and was instructed to stay off of his feet as much as possible, but was instructed to use the surgical shoe at all times if he absolutely had to be up on his feet. Patient was measured at [facility] for his diabetic shoes with offloading to ulcer site, and he will pick them up in a couple of weeks. Order for 3 view x ray of the left foot were placed, and the results were reviewed with the patient previously. There were degenerative changes appreciated as well as bunion deformity, but there was no soft tissue emphysema or current signs of osteomyelitis appreciated. I also recommended nutritional supplementation with a high protein diet in order to optimize ulcer healing. I also discussed the importance of tight glycemic control with this patient. He says that he understands this. The patient was educated on all signs and symptoms of local and systemic infection, and was instructed to go to the emergency room immediately should he notice any of these. All in any other questions were answered to the patient's satisfaction. Patient will follow-up at the wound center in 1 week, or sooner if needed.
[2017-11-30 08:07] VITALS: BP 159/95; PULSE 114; RESP 18; TEMP 36
--- NOTE | 2017-11-30 09:14 | PCM.WC.PN ---
(1) Chronic ulcer of left foot with fat layer exposed Status: Acute Current Visit: No Code(s): L97.522 - Non-pressure chronic ulcer of other part of left foot with fat layer exposed (2) Type 2 diabetes mellitus with diabetic polyneuropathy Status: Acute Current Visit: No Code(s): E11.42 - Type 2 diabetes mellitus with diabetic polyneuropathy (3) Delayed wound healing Status: Acute Current Visit: No Code(s): T14.8XXD - Other injury of unspecified body region, subsequent encounter (4) Edema, lower extremity Status: Acute Current Visit: No Code(s): R60.0 - Localized edema Type of Wound Date of Service: 11/30/17 Chief Complaint: non healing post op wound of perineum s/p debridement of large perirectal abscess History of Wound: This 51 year old diabetic male presents to wound center today for ulcer of his left medial plantar great toe. Patient states that he has been trying to lose weight and has been working out on the treadmill at [employer]. He says after a while, he noticed some callus building up on his left great toe. He says the callus continued to grow but he did not think much of it. He showed his primary care physician who took some of the callus down and noticed a small ulcer. They tried to treat with keflex and local care, but it has not healed yet. Patient has since finished his keflex prescription and says he has been having daily dressing changes with the help of his , using neosporin and dressing. Patient denies any purulence or extending redness. He currently denies any feelings of nausea, vomiting, fever, or chills. Progress of Wound: Patient presents for follow up of ulcer to left great toe. Ulcer continuing to slowly improve. Patient says he has been using the offloading surgical shoe as much as possible and trying to keep weight off of the area the best he can. He has tried using cruthces, but felt too unstable. Was fitted for diabetic offloading shoes at [facility] and will pick them up in a couple of weeks. He did well with dressing changes over the last week. He denies any feelings of nausea, vomiting, fever, chills, or shortness of breath. - Physical Exam Vital Signs Temp Pulse Resp BP 96.8 F L 114 H 18 159/95 H 11/30/17 08:07 06/21/18 08:07 11/30/17 08:07 11/30/17 08:07 General: Alert, Oriented x3, Cooperative, No apparent distress Extremities: Capillary Refill Less than 3 Seconds, No Calf Tenderness - Negative Suellen and Santiago sign, Edema - Slight lower extremity edema, Peripheral Pulses Normal - DP and PT pulses palpable Skin: Ulcer/ Wound - Ulcer left plantar medial hallux with fat layer exposed. Base is still a mixture of granular tissue, adherent slough, fibrin, biofilm and surrounding hyperkeratotic tissue. Slightly more hyperkeratotic tissue appreciated keila-ulcer this week. There continues to be no purulence, no malodor, no extending cellulitis, no increased warmth, no probing to bone, no tracking, and no undermining. Wound Measurements and Assessment WC - Nurse 1 - General Ulcer Measurement Start: 11/23/17 08:32 Freq: Status: Active Protocol: Activity Type Activity Date Activity User E-Sign Co-Sign Detail Recorded Client Recorded Date Recorded By Document 11/30/17 08:07 NIMA [id number] 11/30/17 08:16 RB 11/30/17 08:07 Wound Center Nurse 1 [Ulcer Assessment] 2-left hallux -Combined with other wound No -Current Size (cm) - Length 0.1 -Current Size (cm) - Width 0.8 -Current Size (cm) - Depth 0.2 -Total Square Cm 0.08 -Photo Taken No -Tunneling No -Undermining/Tunneling No -Circular Undermining No -Classification - Thickness Full Thickness without Exposed Support Structure -Exudate Amt Small (1-33%) -Exudate Type Serosanguineous -Wound Margin Distinct, Outline Attached -Granulation Amt Medium (34-66%) -Granulation Quality [place] -Slough/Fibrin Yes -Necrosis Amt Small (1-33%) -Necrotic Tissue Type Adherent Slough -Structure Exposed N/A -Texture (Keila-wound Skin Appearance) Assessed -Moisture (Keila-wound Skin Appearance Assessed ) -Color (Keila-wound Skin Appearance) Assessed -Temperature (Keila-wound Skin No Abnormality Appearance) (Pt Warm) -Tenderness on Palpation (Keila-wound No Skin Appearance) -Ulcer Cleansing Rinsed/ Irrigated with Saline -Foul Odor after Cleansing No -Anesthetic Used 5% Lidocaine Gel WC - Nurse 2 - General Ulcer CM Notes Start: 11/23/17 08:32 Freq: Status: Active Protocol: Activity Type Activity Date Activity User E-Sign Co-Sign Detail Recorded Client Recorded Date Recorded By Document 11/30/17 08:27 [id number] 11/30/17 08:29 11/30/17 08:27 Wound Center Nurse 2 [Procedure/Treatment] -Time 08:27 -Correct Patient Yes -Correct Side, Site, Position Yes -Correct Procedure Yes -Procedure Performed Yes -Type of Procedure Debridement -Clinical Debridement Subcutaneous -Post Debridement Size (cm) - Length 0.7 -Post Debridement Size (cm) - Width 0.3 -Post Debridement Size (cm) - Depth 0.2 -Total Square Cm 0.21 -Wound/Ulcer Outcome Not Healed -Ulcer Cleansing Rinsed/ Irrigated with Saline -Foul Odor after Cleansing No -Topical Lidocaine (%) 4 -Lidocaine (ml) 5 -Bleeding Controlled with NA -Treatment Response Procedure Tolerated Well [See Physician Procedure note for Specifics] Pain Scale: 0-10 Numeric [Pain] -Is Patient Pain Free? Yes Musculoskeletal: - - No pain with manipulation of ulcer site Neurological: - - Epicritic sensation grossly absent to lower extremity Psych/Mental Status: Normal Affect, Appropriate Debridement Note Post-Debridement Measurements/Treatment WC - Nurse 2 - General Ulcer CM Notes Start: 11/23/17 08:32 Freq: Status: Active Protocol: Activity Type Activity Date Activity User E-Sign Co-Sign Detail Recorded Client Recorded Date Recorded By Document 11/23/17 09:27 [id number] 11/23/17 09:34 Document 11/30/17 08:27 [id number] 11/30/17 08:29 11/23/17 11/30/17 09:27 08:27 Wound Center Nurse 2 2-left hallux -Time 09:32 08:27 -Correct Patient Yes Yes -Correct Side, Site, Position Yes Yes -Correct Procedure Yes Yes -Procedure Performed Yes Yes -Type of Procedure Debridement Debridement -Clinical Debridement Subcutaneous Subcutaneous -Post Debridement Size (cm) - Length 0.8 0.7 -Post Debridement Size (cm) - Width 0.4 0.3 -Post Debridement Size (cm) - Depth 0.2 0.2 -Total Square Cm 0.32 0.21 -Wound/Ulcer Outcome Not Healed Not Healed -Ulcer Cleansing Rinsed/ Rinsed/ Irrigated with Irrigated with Saline Saline -Foul Odor after Cleansing No No -Bioengineered Tissue No -Topical Lidocaine (%) 4 4 -Lidocaine (ml) 5 5 -Bleeding Controlled with NA NA -Treatment Response Procedure Procedure Tolerated Well Tolerated Well Pain Scale: 0-10 Numeric Is Patient Pain Free? Yes Yes Wound debrided: Left plantar medial hallux Laterality: Left Type of Debridement: Excisional debridement Anesthesia Used: 4% Lidocaine Solution Depth: in the subcutaneous layer Percentage of wound debrided: 100 Instrument Used: #15 blade Tissue Removed: Adherent slough, fibrin, biofilm, hyperkeratotic tissue Severity: Fat Layer Exposed Amount of bleeding with debridement: Mild Bleeding Controlled with: Pressure Patient tolerated procedure well Assessment/Plan Assessment: Ulcer with fat layer exposed to left plantar medial hallux. DM 2 with neuropathy Plan: Patient was carefully examined and evaluated again today. Another subcutaneous debridement was performed as noted in the clinical panel. Once complete, the ulcer site was carefully cleansed with normal sterile saline, and then dressed with slightly moistened lluvia and a dry sterile dressing. The patient was instructed to change his dressing in this manner daily. He says his helps him with this. The importance of offloading the area was again stressed today. He has been wearing surgical shoe with offloading padding applied to the base of the shoe to offload the ulcer site as much as he can. He admits to walking without it from his couch to his bathroom from time to time. Patient also had his daughter's wedding this past weekend, and he says he tried to sit as much as possible, but there were times when he had to be on his feet. The patient is currently off work, and was instructed to stay off of his feet as much as possible, but was instructed to use the surgical shoe at all times if he absolutely had to be up on his feet. Patient was measured at [facility] for his diabetic shoes with offloading to ulcer site, and he will pick them up in a couple of weeks. Order for 3 view x ray of the left foot were placed, and the results were reviewed with the patient previously. There were degenerative changes appreciated as well as bunion deformity, but there was no soft tissue emphysema or current signs of osteomyelitis appreciated. I also recommended nutritional supplementation with a high protein diet in order to optimize ulcer healing. I also discussed the importance of tight glycemic control with this patient. He says that he understands this. The patient was educated on all signs and symptoms of local and systemic infection, and was instructed to go to the emergency room immediately should he notice any of these. All in any other questions were answered to the patient's satisfaction. Patient will follow-up at the wound center in 1 week, or sooner if needed.
--- NOTE | 2017-11-30 09:20 | PN.PCM_ITS ---
(1) Chronic ulcer of left foot with fat layer exposed Status: Acute Current Visit: No Code(s): L97.522 - Non-pressure chronic ulcer of other part of left foot with fat layer exposed (2) Type 2 diabetes mellitus with diabetic polyneuropathy Status: Acute Current Visit: No Code(s): E11.42 - Type 2 diabetes mellitus with diabetic polyneuropathy (3) Delayed wound healing Status: Acute Current Visit: No Code(s): T14.8XXD - Other injury of unspecified body region, subsequent encounter (4) Edema, lower extremity Status: Acute Current Visit: No Code(s): R60.0 - Localized edema Type of Wound Date of Service: 11/30/17 Chief Complaint: non healing post op wound of perineum s/p debridement of large perirectal abscess History of Wound: This 51 year old diabetic male presents to wound center today for ulcer of his left medial plantar great toe. Patient states that he has been trying to lose weight and has been working out on the treadmill at [employer]. He says after a while, he noticed some callus building up on his left great toe. He says the callus continued to grow but he did not think much of it. He showed his primary care physician who took some of the callus down and noticed a small ulcer. They tried to treat with keflex and local care, but it has not healed yet. Patient has since finished his keflex prescription and says he has been having daily dressing changes with the help of his , using neosporin and dressing. Patient denies any purulence or extending redness. He currently denies any feelings of nausea, vomiting, fever, or chills. Progress of Wound: Patient presents for follow up of ulcer to left great toe. Ulcer continuing to slowly improve. Patient says he has been using the offloading surgical shoe as much as possible and trying to keep weight off of the area the best he can. He has tried using cruthces, but felt too unstable. Was fitted for diabetic offloading shoes at [facility] and will pick them up in a couple of weeks. He did well with dressing changes over the last week. He denies any feelings of nausea, vomiting, fever, chills, or shortness of breath. - Physical Exam Vital Signs Temp Pulse Resp BP 96.8 F L 114 H 18 159/95 H 11/30/17 08:07 06/21/18 08:07 11/30/17 08:07 11/30/17 08:07 General: Alert, Oriented x3, Cooperative, No apparent distress Extremities: Capillary Refill Less than 3 Seconds, No Calf Tenderness - Negative Suellen and Santiago sign, Edema - Slight lower extremity edema, Peripheral Pulses Normal - DP and PT pulses palpable Skin: Ulcer/ Wound - Ulcer left plantar medial hallux with fat layer exposed. Base is still a mixture of granular tissue, adherent slough, fibrin, biofilm and surrounding hyperkeratotic tissue. Slightly more hyperkeratotic tissue appreciated keila-ulcer this week. There continues to be no purulence, no malodor, no extending cellulitis, no increased warmth, no probing to bone, no tracking, and no undermining. Wound Measurements and Assessment WC - Nurse 1 - General Ulcer Measurement Start: 11/23/17 08:32 Freq: Status: Active Protocol: Activity Type Activity Date Activity User E-Sign Co-Sign Detail Recorded Client Recorded Date Recorded By Document 11/30/17 08:07 [email or web address] [id number] 11/30/17 08:16 RB 11/30/17 08:07 Wound Center Nurse 1 [Ulcer Assessment] 2-left hallux -Combined with other wound No -Current Size (cm) - Length 0.1 -Current Size (cm) - Width 0.8 -Current Size (cm) - Depth 0.2 -Total Square Cm 0.08 -Photo Taken No -Tunneling No -Undermining/Tunneling No -Circular Undermining No -Classification - Thickness Full Thickness without Exposed Support Structure -Exudate Amt Small (1-33%) -Exudate Type Serosanguineous -Wound Margin Distinct, Outline Attached -Granulation Amt Medium (34-66%) -Granulation Quality [place] -Slough/Fibrin Yes -Necrosis Amt Small (1-33%) -Necrotic Tissue Type Adherent Slough -Structure Exposed N/A -Texture (Keila-wound Skin Appearance) Assessed -Moisture (Keila-wound Skin Appearance Assessed ) -Color (Keila-wound Skin Appearance) Assessed -Temperature (Keila-wound Skin No Abnormality Appearance) (Pt Warm) -Tenderness on Palpation (Keila-wound No Skin Appearance) -Ulcer Cleansing Rinsed/ Irrigated with Saline -Foul Odor after Cleansing No -Anesthetic Used 5% Lidocaine Gel WC - Nurse 2 - General Ulcer CM Notes Start: 11/23/17 08:32 Freq: Status: Active Protocol: Activity Type Activity Date Activity User E-Sign Co-Sign Detail Recorded Client Recorded Date Recorded By Document 11/30/17 08:27 [id number] 11/30/17 08:29 11/30/17 08:27 Wound Center Nurse 2 [Procedure/Treatment] -Time 08:27 -Correct Patient Yes -Correct Side, Site, Position Yes -Correct Procedure Yes -Procedure Performed Yes -Type of Procedure Debridement -Clinical Debridement Subcutaneous -Post Debridement Size (cm) - Length 0.7 -Post Debridement Size (cm) - Width 0.3 -Post Debridement Size (cm) - Depth 0.2 -Total Square Cm 0.21 -Wound/Ulcer Outcome Not Healed -Ulcer Cleansing Rinsed/ Irrigated with Saline -Foul Odor after Cleansing No -Topical Lidocaine (%) 4 -Lidocaine (ml) 5 -Bleeding Controlled with NA -Treatment Response Procedure Tolerated Well [See Physician Procedure note for Specifics] Pain Scale: 0-10 Numeric [Pain] -Is Patient Pain Free? Yes Musculoskeletal: - - No pain with manipulation of ulcer site Neurological: - - Epicritic sensation grossly absent to lower extremity Psych/Mental Status: Normal Affect, Appropriate Debridement Note Post-Debridement Measurements/Treatment WC - Nurse 2 - General Ulcer CM Notes Start: 11/23/17 08:32 Freq: Status: Active Protocol: Activity Type Activity Date Activity User E-Sign Co-Sign Detail Recorded Client Recorded Date Recorded By Document 11/23/17 09:27 [id number] 11/23/17 09:34 Document 11/30/17 08:27 [id number] 11/30/17 08:29 11/23/17 11/30/17 09:27 08:27 Wound Center Nurse 2 2-left hallux -Time 09:32 08:27 -Correct Patient Yes Yes -Correct Side, Site, Position Yes Yes -Correct Procedure Yes Yes -Procedure Performed Yes Yes -Type of Procedure Debridement Debridement -Clinical Debridement Subcutaneous Subcutaneous -Post Debridement Size (cm) - Length 0.8 0.7 -Post Debridement Size (cm) - Width 0.4 0.3 -Post Debridement Size (cm) - Depth 0.2 0.2 -Total Square Cm 0.32 0.21 -Wound/Ulcer Outcome Not Healed Not Healed -Ulcer Cleansing Rinsed/ Rinsed/ Irrigated with Irrigated with Saline Saline -Foul Odor after Cleansing No No -Bioengineered Tissue No -Topical Lidocaine (%) 4 4 -Lidocaine (ml) 5 5 -Bleeding Controlled with NA NA -Treatment Response Procedure Procedure Tolerated Well Tolerated Well Pain Scale: 0-10 Numeric Is Patient Pain Free? Yes Yes Wound debrided: Left plantar medial hallux Laterality: Left Type of Debridement: Excisional debridement Anesthesia Used: 4% Lidocaine Solution Depth: in the subcutaneous layer Percentage of wound debrided: 100 Instrument Used: #15 blade Tissue Removed: Adherent slough, fibrin, biofilm, hyperkeratotic tissue Severity: Fat Layer Exposed Amount of bleeding with debridement: Mild Bleeding Controlled with: Pressure Patient tolerated procedure well Assessment/Plan Assessment: Ulcer with fat layer exposed to left plantar medial hallux. DM 2 with neuropathy Plan: Patient was carefully examined and evaluated again today. Another subcutaneous debridement was performed as noted in the clinical panel. Once complete, the ulcer site was carefully cleansed with normal sterile saline, and then dressed with slightly moistened lluvia and a dry sterile dressing. The patient was instructed to change his dressing in this manner daily. He says his helps him with this. The importance of offloading the area was again stressed today. He has been wearing surgical shoe with offloading padding applied to the base of the shoe to offload the ulcer site as much as he can. He admits to walking without it from his couch to his bathroom from time to time. Patient also had his daughter's wedding this past weekend, and he says he tried to sit as much as possible, but there were times when he had to be on his feet. The patient is currently off work, and was instructed to stay off of his feet as much as possible, but was instructed to use the surgical shoe at all times if he absolutely had to be up on his feet. Patient was measured at [facility] for his diabetic shoes with offloading to ulcer site, and he will pick them up in a couple of weeks. Order for 3 view x ray of the left foot were placed, and the results were reviewed with the patient previously. There were degenerative changes appreciated as well as bunion deformity, but there was no soft tissue emphysema or current signs of osteomyelitis appreciated. I also recommended nutritional supplementation with a high protein diet in order to optimize ulcer healing. I also discussed the importance of tight glycemic control with this patient. He says that he understands this. The patient was educated on all signs and symptoms of local and systemic infection, and was instructed to go to the emergency room immediately should he notice any of these. All in any other questions were answered to the patient's satisfaction. Patient will follow-up at the wound center in 1 week, or sooner if needed.
[2017-12-07 08:10] VITALS: BP 164/88; PULSE 93; RESP 20; TEMP 36.5
--- NOTE | 2017-12-07 09:23 | PCM.WC.PN ---
(1) Chronic ulcer of left foot with fat layer exposed Status: Acute Current Visit: No Code(s): L97.522 - Non-pressure chronic ulcer of other part of left foot with fat layer exposed (2) Type 2 diabetes mellitus with diabetic polyneuropathy Status: Acute Current Visit: No Code(s): E11.42 - Type 2 diabetes mellitus with diabetic polyneuropathy (3) Delayed wound healing Status: Acute Current Visit: No Code(s): T14.8XXD - Other injury of unspecified body region, subsequent encounter (4) Edema, lower extremity Status: Acute Current Visit: No Code(s): R60.0 - Localized edema Type of Wound Date of Service: 12/07/17 Chief Complaint: non healing post op wound of perineum s/p debridement of large perirectal abscess History of Wound: This 51 year old diabetic male presents to wound center today for ulcer of his left medial plantar great toe. Patient states that he has been trying to lose weight and has been working out on the treadmill at [employer]. He says after a while, he noticed some callus building up on his left great toe. He says the callus continued to grow but he did not think much of it. He showed his primary care physician who took some of the callus down and noticed a small ulcer. They tried to treat with keflex and local care, but it has not healed yet. Patient has since finished his keflex prescription and says he has been having daily dressing changes with the help of his , using neosporin and dressing. Patient denies any purulence or extending redness. He currently denies any feelings of nausea, vomiting, fever, or chills. Progress of Wound: Patient presents for follow up of ulcer to left great toe. Ulcer continuing to slowly improve. Patient continues with offloading surgical shoe as much as possible and trying to keep weight off of the area the best he can. He has tried using cruthces, but felt too unstable. Was fitted for diabetic offloading shoes at [facility] (formerly [facility]) and will pick them up next week. He did well with dressing changes over the last week. He denies any feelings of nausea, vomiting, fever, chills, or shortness of breath. - Physical Exam Vital Signs Temp Pulse Resp BP 97.7 F L 93 20 H 164/88 H 12/07/17 08:10 12/07/17 08:10 12/07/17 08:10 12/07/17 08:10 General: Alert, Oriented x3, Cooperative, No apparent distress Extremities: Capillary Refill Less than 3 Seconds, No Calf Tenderness - Negative Suellen and Santiago sign, Edema - Slight lower extremity edema, Peripheral Pulses Normal - DP and PT pulses palpable Skin: Ulcer/ Wound - Ulcer left plantar medial hallux with fat layer exposed. Base continues to be a mixture of granular tissue, adherent slough, fibrin, biofilm as well as surrounding hyperkeratotic tissue. Less hyperkeratotic tissue appreciated surrounding the ulcer site this week. There continues to be no purulence, no malodor, no extending cellulitis, no increased warmth, no probing to bone, no tracking, and no undermining. Wound Measurements and Assessment WC - Nurse 1 - General Ulcer Measurement Start: 11/23/17 08:32 Freq: Status: Active Protocol: Activity Type Activity Date Activity User E-Sign Co-Sign Detail Recorded Client Recorded Date Recorded By Document 12/07/17 08:10 DL [id number] 12/07/17 08:26 DL 12/07/17 08:10 Wound Center Nurse 1 [Ulcer Assessment] 2-left hallux -Current Size (cm) - Length 0.7 -Current Size (cm) - Width 0.5 -Current Size (cm) - Depth 0.2 -Total Square Cm 0.35 -Photo Taken No -Exudate Amt Small (1-33%) -Exudate Type Serosanguineous -Wound Margin Thickened -Granulation Amt Small (1-33%) -Granulation Quality [place] -Necrosis Amt Small (1-33%) -Necrotic Tissue Type Adherent Slough -Structure Exposed N/A -Texture (Keila-wound Skin Appearance) Callus -Moisture (Keila-wound Skin Appearance Dry/Scaly ) -Color (Keila-wound Skin Appearance) No Abnormality -Temperature (Keila-wound Skin No Abnormality Appearance) (Pt Warm) -Ulcer Cleansing Rinsed/ Irrigated with Saline -Foul Odor after Cleansing No -Anesthetic Used 4% Lidocaine Solution WC - Nurse 2 - General Ulcer CM Notes Start: 11/23/17 08:32 Freq: Status: Active Protocol: Activity Type Activity Date Activity User E-Sign Co-Sign Detail Recorded Client Recorded Date Recorded By Document 12/07/17 08:23 [id number] 12/07/17 08:30 12/07/17 08:23 Wound Center Nurse 2 [Procedure/Treatment] -Time 08:24 -Correct Patient Yes -Correct Side, Site, Position Yes -Correct Procedure Yes -Procedure Performed Yes -Type of Procedure Debridement -Clinical Debridement Subcutaneous -Post Debridement Size (cm) - Length 0.6 -Post Debridement Size (cm) - Width 0.3 -Post Debridement Size (cm) - Depth 0.2 -Total Square Cm 0.18 -Wound/Ulcer Outcome Not Healed -Ulcer Cleansing Not Cleansed -Foul Odor after Cleansing No -Bioengineered Tissue No -Bleeding Controlled with NA -Treatment Response Procedure Tolerated Well [See Physician Procedure note for Specifics] Pain Scale: 0-10 Numeric [Pain] -Is Patient Pain Free? Yes Musculoskeletal: - - No pain with manipulation of ulcer site Neurological: - - Epicritic sensation grossly absent to lower extremity Psych/Mental Status: Normal Affect, Appropriate Debridement Note Post-Debridement Measurements/Treatment WC - Nurse 2 - General Ulcer CM Notes Start: 11/23/17 08:32 Freq: Status: Active Protocol: Activity Type Activity Date Activity User E-Sign Co-Sign Detail Recorded Client Recorded Date Recorded By Document 11/23/17 09:27 [id number] 11/23/17 09:34 Document 11/30/17 08:27 [id number] 11/30/17 08:29 Document 12/07/17 08:23 [id number] 12/07/17 08:30 11/23/17 11/30/17 12/07/17 09:27 08:27 08:23 Wound Center Nurse 2 2-left hallux -Time 09:32 08:27 08:24 -Correct Patient Yes Yes Yes -Correct Side, Site, Position Yes Yes Yes -Correct Procedure Yes Yes Yes -Procedure Performed Yes Yes Yes -Type of Procedure Debridement Debridement Debridement -Clinical Debridement Subcutaneous Subcutaneous Subcutaneous -Post Debridement Size (cm) - Length 0.8 0.7 0.6 -Post Debridement Size (cm) - Width 0.4 0.3 0.3 -Post Debridement Size (cm) - Depth 0.2 0.2 0.2 -Total Square Cm 0.32 0.21 0.18 -Wound/Ulcer Outcome Not Healed Not Healed Not Healed -Ulcer Cleansing Rinsed/ Rinsed/ Not Cleansed Irrigated with Irrigated with Saline Saline -Foul Odor after Cleansing No No No -Bioengineered Tissue No No -Topical Lidocaine (%) 4 4 -Lidocaine (ml) 5 5 -Bleeding Controlled with NA NA NA -Treatment Response Procedure Procedure Procedure Tolerated Well Tolerated Well Tolerated Well Pain Scale: 0-10 Numeric Is Patient Pain Free? Yes Yes Yes Wound debrided: Left plantar medial hallux Laterality: Left Type of Debridement: Excisional debridement Anesthesia Used: 4% Lidocaine Solution Depth: in the subcutaneous layer Percentage of wound debrided: 100 Instrument Used: #15 blade Tissue Removed: Adherent slough, fibrin, biofilm, hyperkeratotic tissue Severity: Fat Layer Exposed Amount of bleeding with debridement: Mild Bleeding Controlled with: Pressure Patient tolerated procedure well Assessment/Plan Assessment: Ulcer with fat layer exposed to left plantar medial hallux. DM 2 with neuropathy Plan: Patient was carefully examined and evaluated again today. Another subcutaneous debridement was performed as noted in the clinical panel. Once complete, the ulcer site was carefully cleansed with normal sterile saline, and then dressed with slightly moistened lluvia and a dry sterile dressing. The patient was instructed to change his dressing in this manner daily. The importance of offloading the area was again stressed today. He has been wearing surgical shoe with offloading padding applied to the base of the shoe to offload the ulcer site as much as he can. He admits to walking without it from his couch to his bathroom from time to time. The patient is currently off work, and was instructed to stay off of his feet as much as possible, but was instructed to use the surgical shoe at all times if he absolutely had to be up on his feet. Patient was measured at [facility] ([facility] for his diabetic shoes with offloading to ulcer site, and he will pick them up next week. Order for 3 view x ray of the left foot were placed, and the results were reviewed with the patient previously. There were degenerative changes appreciated as well as bunion deformity, but there was no soft tissue emphysema or current signs of osteomyelitis appreciated. I also recommended nutritional supplementation with a high protein diet in order to optimize ulcer healing. I also discussed the importance of tight glycemic control with this patient. He says that he understands this. The patient was educated on all signs and symptoms of local and systemic infection, and was instructed to go to the emergency room immediately should he notice any of these. All in any other questions were answered to the patient's satisfaction. Patient will follow-up at the wound center in 1 week, or sooner if needed.
--- NOTE | 2017-12-07 09:29 | PN.PCM_ITS ---
(1) Chronic ulcer of left foot with fat layer exposed Status: Acute Current Visit: No Code(s): L97.522 - Non-pressure chronic ulcer of other part of left foot with fat layer exposed (2) Type 2 diabetes mellitus with diabetic polyneuropathy Status: Acute Current Visit: No Code(s): E11.42 - Type 2 diabetes mellitus with diabetic polyneuropathy (3) Delayed wound healing Status: Acute Current Visit: No Code(s): T14.8XXD - Other injury of unspecified body region, subsequent encounter (4) Edema, lower extremity Status: Acute Current Visit: No Code(s): R60.0 - Localized edema Type of Wound Date of Service: 12/07/17 Chief Complaint: non healing post op wound of perineum s/p debridement of large perirectal abscess History of Wound: This 51 year old diabetic male presents to wound center today for ulcer of his left medial plantar great toe. Patient states that he has been trying to lose weight and has been working out on the treadmill at [employer]. He says after a while, he noticed some callus building up on his left great toe. He says the callus continued to grow but he did not think much of it. He showed his primary care physician who took some of the callus down and noticed a small ulcer. They tried to treat with keflex and local care, but it has not healed yet. Patient has since finished his keflex prescription and says he has been having daily dressing changes with the help of his , using neosporin and dressing. Patient denies any purulence or extending redness. He currently denies any feelings of nausea, vomiting, fever, or chills. Progress of Wound: Patient presents for follow up of ulcer to left great toe. Ulcer continuing to slowly improve. Patient continues with offloading surgical shoe as much as possible and trying to keep weight off of the area the best he can. He has tried using cruthces, but felt too unstable. Was fitted for diabetic offloading shoes at [facility] and will pick them up next week. He did well with dressing changes over the last week. He denies any feelings of nausea, vomiting, fever, chills, or shortness of breath. - Physical Exam Vital Signs Temp Pulse Resp BP 97.7 F L 93 20 H 164/88 H 12/07/17 08:10 12/07/17 08:10 12/07/17 08:10 12/07/17 08:10 General: Alert, Oriented x3, Cooperative, No apparent distress Extremities: Capillary Refill Less than 3 Seconds, No Calf Tenderness - Negative Suellen and Santiago sign, Edema - Slight lower extremity edema, Peripheral Pulses Normal - DP and PT pulses palpable Skin: Ulcer/ Wound - Ulcer left plantar medial hallux with fat layer exposed. Base continues to be a mixture of granular tissue, adherent slough, fibrin, biofilm as well as surrounding hyperkeratotic tissue. Less hyperkeratotic tissue appreciated surrounding the ulcer site this week. There continues to be no purulence, no malodor, no extending cellulitis, no increased warmth, no probing to bone, no tracking, and no undermining. Wound Measurements and Assessment WC - Nurse 1 - General Ulcer Measurement Start: 11/23/17 08:32 Freq: Status: Active Protocol: Activity Type Activity Date Activity User E-Sign Co-Sign Detail Recorded Client Recorded Date Recorded By Document 12/07/17 08:10 DL [id number] 12/07/17 08:26 DL 12/07/17 08:10 Wound Center Nurse 1 [Ulcer Assessment] 2-left hallux -Current Size (cm) - Length 0.7 -Current Size (cm) - Width 0.5 -Current Size (cm) - Depth 0.2 -Total Square Cm 0.35 -Photo Taken No -Exudate Amt Small (1-33%) -Exudate Type Serosanguineous -Wound Margin Thickened -Granulation Amt Small (1-33%) -Granulation Quality [place] -Necrosis Amt Small (1-33%) -Necrotic Tissue Type Adherent Slough -Structure Exposed N/A -Texture (Keila-wound Skin Appearance) Callus -Moisture (Keila-wound Skin Appearance Dry/Scaly ) -Color (Keila-wound Skin Appearance) No Abnormality -Temperature (Keila-wound Skin No Abnormality Appearance) (Pt Warm) -Ulcer Cleansing Rinsed/ Irrigated with Saline -Foul Odor after Cleansing No -Anesthetic Used 4% Lidocaine Solution WC - Nurse 2 - General Ulcer CM Notes Start: 11/23/17 08:32 Freq: Status: Active Protocol: Activity Type Activity Date Activity User E-Sign Co-Sign Detail Recorded Client Recorded Date Recorded By Document 12/07/17 08:23 [id number] 12/07/17 08:30 12/07/17 08:23 Wound Center Nurse 2 [Procedure/Treatment] -Time 08:24 -Correct Patient Yes -Correct Side, Site, Position Yes -Correct Procedure Yes -Procedure Performed Yes -Type of Procedure Debridement -Clinical Debridement Subcutaneous -Post Debridement Size (cm) - Length 0.6 -Post Debridement Size (cm) - Width 0.3 -Post Debridement Size (cm) - Depth 0.2 -Total Square Cm 0.18 -Wound/Ulcer Outcome Not Healed -Ulcer Cleansing Not Cleansed -Foul Odor after Cleansing No -Bioengineered Tissue No -Bleeding Controlled with NA -Treatment Response Procedure Tolerated Well [See Physician Procedure note for Specifics] Pain Scale: 0-10 Numeric [Pain] -Is Patient Pain Free? Yes Musculoskeletal: - - No pain with manipulation of ulcer site Neurological: - - Epicritic sensation grossly absent to lower extremity Psych/Mental Status: Normal Affect, Appropriate Debridement Note Post-Debridement Measurements/Treatment WC - Nurse 2 - General Ulcer CM Notes Start: 11/23/17 08:32 Freq: Status: Active Protocol: Activity Type Activity Date Activity User E-Sign Co-Sign Detail Recorded Client Recorded Date Recorded By Document 11/23/17 09:27 [id number] 11/23/17 09:34 Document 11/30/17 08:27 [id number] 11/30/17 08:29 Document 12/07/17 08:23 [id number] 12/07/17 08:30 11/23/17 11/30/17 12/07/17 09:27 08:27 08:23 Wound Center Nurse 2 2-left hallux -Time 09:32 08:27 08:24 -Correct Patient Yes Yes Yes -Correct Side, Site, Position Yes Yes Yes -Correct Procedure Yes Yes Yes -Procedure Performed Yes Yes Yes -Type of Procedure Debridement Debridement Debridement -Clinical Debridement Subcutaneous Subcutaneous Subcutaneous -Post Debridement Size (cm) - Length 0.8 0.7 0.6 -Post Debridement Size (cm) - Width 0.4 0.3 0.3 -Post Debridement Size (cm) - Depth 0.2 0.2 0.2 -Total Square Cm 0.32 0.21 0.18 -Wound/Ulcer Outcome Not Healed Not Healed Not Healed -Ulcer Cleansing Rinsed/ Rinsed/ Not Cleansed Irrigated with Irrigated with Saline Saline -Foul Odor after Cleansing No No No -Bioengineered Tissue No No -Topical Lidocaine (%) 4 4 -Lidocaine (ml) 5 5 -Bleeding Controlled with NA NA NA -Treatment Response Procedure Procedure Procedure Tolerated Well Tolerated Well Tolerated Well Pain Scale: 0-10 Numeric Is Patient Pain Free? Yes Yes Yes Wound debrided: Left plantar medial hallux Laterality: Left Type of Debridement: Excisional debridement Anesthesia Used: 4% Lidocaine Solution Depth: in the subcutaneous layer Percentage of wound debrided: 100 Instrument Used: #15 blade Tissue Removed: Adherent slough, fibrin, biofilm, hyperkeratotic tissue Severity: Fat Layer Exposed Amount of bleeding with debridement: Mild Bleeding Controlled with: Pressure Patient tolerated procedure well Assessment/Plan Assessment: Ulcer with fat layer exposed to left plantar medial hallux. DM 2 with neuropathy Plan: Patient was carefully examined and evaluated again today. Another subcutaneous debridement was performed as noted in the clinical panel. Once complete, the ulcer site was carefully cleansed with normal sterile saline, and then dressed with slightly moistened lluvia and a dry sterile dressing. The patient was instructed to change his dressing in this manner daily. The importance of offloading the area was again stressed today. He has been wearing surgical shoe with offloading padding applied to the base of the shoe to offload the ulcer site as much as he can. He admits to walking without it from his couch to his bathroom from time to time. The patient is currently off work, and was instructed to stay off of his feet as much as possible, but was instructed to use the surgical shoe at all times if he absolutely had to be up on his feet. Patient was measured at [facility] for his diabetic shoes with offloading to ulcer site, and he will pick them up next week. Order for 3 view x ray of the left foot were placed, and the results were reviewed with the patient previously. There were degenerative changes appreciated as well as bunion deformity, but there was no soft tissue emphysema or current signs of osteomyelitis appreciated. I also recommended nutritional supplementation with a high protein diet in order to optimize ulcer healing. I also discussed the importance of tight glycemic control with this patient. He says that he understands this. The patient was educated on all signs and symptoms of local and systemic infection, and was instructed to go to the emergency room immediately should he notice any of these. All in any other questions were answered to the patient's satisfaction. Patient will follow-up at the wound center in 1 week, or sooner if needed.
== END 2017-12-09 23:59 ==
LOC: WC 08:00
PROVIDERS: Family Provider Family Medicine; PCP Family Medicine; Visit Provider Podiatrist
DX: E11.621 Type 2 diabetes mellitus with foot ulcer (principal); E11.42 Type 2 diabetes mellitus with diabetic polyneuropathy; L97.522 Non-pressure chronic ulcer of other part of left foot with fat layer exposed; R60.0 Localized edema; L84 Corns and callosities
CPT/HCPCS: 11042

== ENCOUNTER 2018-01-04 08:00 | Outpatient (RCR) | payer BC, SELFPAY ==
[2017-12-10 01:02] VITALS: BP 164/88; PULSE 93; RESP 20; TEMP 36.5
[2017-12-14 08:21] VITALS: BP 118/62; PULSE 103; RESP 18; TEMP 36.6
--- NOTE | 2017-12-14 09:19 | PCM.WC.PN ---
(1) Chronic ulcer of left foot with fat layer exposed Status: Acute Current Visit: No Code(s): L97.522 - Non-pressure chronic ulcer of other part of left foot with fat layer exposed (2) Type 2 diabetes mellitus with diabetic polyneuropathy Status: Acute Current Visit: No Code(s): E11.42 - Type 2 diabetes mellitus with diabetic polyneuropathy (3) Delayed wound healing Status: Acute Current Visit: No Code(s): T14.8XXD - Other injury of unspecified body region, subsequent encounter (4) Edema, lower extremity Status: Acute Current Visit: No Code(s): R60.0 - Localized edema Type of Wound Date of Service: 12/14/17 Chief Complaint: non healing post op wound of perineum s/p debridement of large perirectal abscess History of Wound: This 51 year old diabetic male presents to wound center today for ulcer of his left medial plantar great toe. Patient states that he has been trying to lose weight and has been working out on the treadmill at [employer]. He says after a while, he noticed some callus building up on his left great toe. He says the callus continued to grow but he did not think much of it. He showed his primary care physician who took some of the callus down and noticed a small ulcer. They tried to treat with keflex and local care, but it has not healed yet. Patient has since finished his keflex prescription and says he has been having daily dressing changes with the help of his , using neosporin and dressing. Patient denies any purulence or extending redness. He currently denies any feelings of nausea, vomiting, fever, or chills. Progress of Wound: Patient presents for follow up of ulcer to left great toe. Ulcer continuing to slowly improve. Patient continues with offloading surgical shoe as much as possible and trying to keep weight off of the area the best he can. He has tried using cruthces, but felt too unstable. Was fitted for diabetic offloading shoes at [facility] and will pick them up tomorrow. He did well with dressing changes over the last week. He denies any feelings of nausea, vomiting, fever, chills, or shortness of breath. - Physical Exam Vital Signs Temp Pulse Resp BP 97.8 F 103 H 18 118/62 12/14/17 08:21 12/14/17 08:21 12/14/17 08:21 12/14/17 08:21 General: Alert, Oriented x3, Cooperative, No apparent distress Extremities: Capillary Refill Less than 3 Seconds, No Calf Tenderness - Negative Suellen and Santiago sign, Edema - Slight lower extremity edema, Peripheral Pulses Normal - DP and PT pulses palpable Skin: Ulcer/ Wound - Ulcer to left plantar medial hallux with fat layer exposed. Based still a mixture of adherent slough, fibrin, granular tissue as well as surrounding hyperkeratotic tissue. There continues to be no purulence, no malodor, no extending cellulitis, no increase in warmth, no probing to bone, no tracking, no undermining. Wound Measurements and Assessment WC - Nurse 1 - General Ulcer Measurement Start: 12/14/17 08:21 Freq: Status: Active Protocol: Activity Type Activity Date Activity User E-Sign Co-Sign Detail Recorded Client Recorded Date Recorded By Document 12/14/17 08:21 [id number] 12/14/17 08:23 12/14/17 08:21 Wound Center Nurse 1 [Ulcer Assessment] 2-left hallux -Combined with other wound No -Current Size (cm) - Length 0.5 -Current Size (cm) - Width 0.4 -Current Size (cm) - Depth 0.2 -Total Square Cm 0.20 -Date of Last Picture (Recall this 12/14/17 field) -Photo Taken Yes -Epithelialization None Present -Tunneling No -Undermining/Tunneling No -Circular Undermining No -Classification - Thickness Full Thickness without Exposed Support Structure -Exudate Amt Small (1-33%) -Exudate Type Serosanguineous -Wound Margin Distinct, Outline Attached -Granulation Amt Small (1-33%) -Granulation Quality Pale [place] -Slough/Fibrin Yes -Necrosis Amt Small (1-33%) -Necrotic Tissue Type Adherent Slough -Structure Exposed Fascia Fat Layer Exposed -Texture (Keila-wound Skin Appearance) Callus -Moisture (Keila-wound Skin Appearance Dry/Scaly ) -Color (Keila-wound Skin Appearance) No Abnormality -Temperature (Keila-wound Skin No Abnormality Appearance) (Pt Warm) -Tenderness on Palpation (Keila-wound Yes Skin Appearance) -Ulcer Cleansing Rinsed/ Irrigated with Saline -Foul Odor after Cleansing No -Anesthetic Used 4% Lidocaine Solution [Edema Assessment] -Lower Limb Edema Present No WC - Nurse 2 - General Ulcer CM Notes Start: 12/14/17 08:21 Freq: Status: Active Protocol: Activity Type Activity Date Activity User E-Sign Co-Sign Detail Recorded Client Recorded Date Recorded By Document 12/14/17 09:04 [id number] 12/14/17 09:05 12/14/17 09:04 Wound Center Nurse 2 [Procedure/Treatment] 2-left hallux -Time 09:04 -Correct Patient Yes -Correct Side, Site, Position Yes -Correct Procedure Yes -Procedure Performed Yes -Type of Procedure Debridement -Clinical Debridement Subcutaneous -Post Debridement Size (cm) - Length 1.1 -Post Debridement Size (cm) - Width 0.3 -Post Debridement Size (cm) - Depth 0.2 -Total Square Cm 0.33 -Wound/Ulcer Outcome Not Healed -Ulcer Cleansing Not Cleansed -Foul Odor after Cleansing No -Bioengineered Tissue No -Bleeding Controlled with Pressure -Treatment Response Procedure Tolerated Well [See Physician Procedure note for Specifics] Pain Scale: 0-10 Numeric [Pain] -Is Patient Pain Free? Yes Musculoskeletal: - - No pain with manipulation of ulcer site Neurological: - - Epicritic sensation grossly absent to lower extremity Psych/Mental Status: Normal Affect, Appropriate Debridement Note Post-Debridement Measurements/Treatment WC - Nurse 2 - General Ulcer CM Notes Start: 12/14/17 08:21 Freq: Status: Active Protocol: Activity Type Activity Date Activity User E-Sign Co-Sign Detail Recorded Client Recorded Date Recorded By Document 12/14/17 09:04 [id number] 12/14/17 09:05 12/14/17 09:04 Wound Center Nurse 2 2-left hallux -Time 09:04 -Correct Patient Yes -Correct Side, Site, Position Yes -Correct Procedure Yes -Procedure Performed Yes -Type of Procedure Debridement -Clinical Debridement Subcutaneous -Post Debridement Size (cm) - Length 1.1 -Post Debridement Size (cm) - Width 0.3 -Post Debridement Size (cm) - Depth 0.2 -Total Square Cm 0.33 -Wound/Ulcer Outcome Not Healed -Ulcer Cleansing Not Cleansed -Foul Odor after Cleansing No -Bioengineered Tissue No -Bleeding Controlled with Pressure -Treatment Response Procedure Tolerated Well Pain Scale: 0-10 Numeric Is Patient Pain Free? Yes Wound debrided: Left plantar medial hallux Laterality: Left Type of Debridement: Excisional debridement Anesthesia Used: 4% Lidocaine Solution Depth: in the subcutaneous layer Percentage of wound debrided: 100 Instrument Used: #15 blade Tissue Removed: Adherent slough, fibrin, hyperkeratotic tissue Severity: Fat Layer Exposed Amount of bleeding with debridement: Mild Bleeding Controlled with: Pressure Patient tolerated procedure well Assessment/Plan Assessment: Ulcer with fat layer exposed to left plantar medial hallux. DM 2 with neuropathy Plan: Patient was carefully examined and evaluated again today. Another subcutaneous debridement was performed as noted in the clinical panel. Once complete, the ulcer site was carefully cleansed with normal sterile saline, and then dressed with slightly moistened lluvia and a dry sterile dressing. The patient was instructed to continue to change his dressing in this manner daily. The importance of offloading the area was again stressed today. He has been wearing surgical shoe with offloading padding applied to the base of the shoe to offload the ulcer site as much as he can. He admits to walking without it from his couch to his bathroom from time to time. The patient is currently off work, and was instructed to stay off of his feet as much as possible, but was instructed to use the surgical shoe at all times if he absolutely had to be up on his feet. Patient was measured at [facility] for his diabetic shoes with offloading to ulcer site, and he will pick them up tomorrow. Order for 3 view x ray of the left foot were placed, and the results were reviewed with the patient at a prior visit. There were degenerative changes appreciated as well as bunion deformity, but there was no soft tissue emphysema or current signs of osteomyelitis appreciated. I also recommended nutritional supplementation with a high protein diet in order to optimize ulcer healing. I also discussed the importance of tight glycemic control with this patient. He says that he understands this. The patient was educated on all signs and symptoms of local and systemic infection, and was instructed to go to the emergency room immediately should he notice any of these. All in any other questions were answered to the patient's satisfaction. Patient will follow-up at the wound center in 1 week, or sooner if needed.
--- NOTE | 2017-12-14 09:24 | PN.PCM_ITS ---
(1) Chronic ulcer of left foot with fat layer exposed Status: Acute Current Visit: No Code(s): L97.522 - Non-pressure chronic ulcer of other part of left foot with fat layer exposed (2) Type 2 diabetes mellitus with diabetic polyneuropathy Status: Acute Current Visit: No Code(s): E11.42 - Type 2 diabetes mellitus with diabetic polyneuropathy (3) Delayed wound healing Status: Acute Current Visit: No Code(s): T14.8XXD - Other injury of unspecified body region, subsequent encounter (4) Edema, lower extremity Status: Acute Current Visit: No Code(s): R60.0 - Localized edema Type of Wound Date of Service: 12/14/17 Chief Complaint: non healing post op wound of perineum s/p debridement of large perirectal abscess History of Wound: This 51 year old diabetic male presents to wound center today for ulcer of his left medial plantar great toe. Patient states that he has been trying to lose weight and has been working out on the treadmill at [employer]. He says after a while, he noticed some callus building up on his left great toe. He says the callus continued to grow but he did not think much of it. He showed his primary care physician who took some of the callus down and noticed a small ulcer. They tried to treat with keflex and local care, but it has not healed yet. Patient has since finished his keflex prescription and says he has been having daily dressing changes with the help of his , using neosporin and dressing. Patient denies any purulence or extending redness. He currently denies any feelings of nausea, vomiting, fever, or chills. Progress of Wound: Patient presents for follow up of ulcer to left great toe. Ulcer continuing to slowly improve. Patient continues with offloading surgical shoe as much as possible and trying to keep weight off of the area the best he can. He has tried using cruthces, but felt too unstable. Was fitted for diabetic offloading shoes at [facility] and will pick them up tomorrow. He did well with dressing changes over the last week. He denies any feelings of nausea, vomiting, fever, chills, or shortness of breath. - Physical Exam Vital Signs Temp Pulse Resp BP 97.8 F 103 H 18 118/62 12/14/17 08:21 12/14/17 08:21 12/14/17 08:21 12/14/17 08:21 General: Alert, Oriented x3, Cooperative, No apparent distress Extremities: Capillary Refill Less than 3 Seconds, No Calf Tenderness - Negative Suellen and Santiago sign, Edema - Slight lower extremity edema, Peripheral Pulses Normal - DP and PT pulses palpable Skin: Ulcer/ Wound - Ulcer to left plantar medial hallux with fat layer exposed. Based still a mixture of adherent slough, fibrin, granular tissue as well as surrounding hyperkeratotic tissue. There continues to be no purulence, no malodor, no extending cellulitis, no increase in warmth, no probing to bone, no tracking, no undermining. Wound Measurements and Assessment WC - Nurse 1 - General Ulcer Measurement Start: 12/14/17 08:21 Freq: Status: Active Protocol: Activity Type Activity Date Activity User E-Sign Co-Sign Detail Recorded Client Recorded Date Recorded By Document 12/14/17 08:21 [id number] 12/14/17 08:23 12/14/17 08:21 Wound Center Nurse 1 [Ulcer Assessment] 2-left hallux -Combined with other wound No -Current Size (cm) - Length 0.5 -Current Size (cm) - Width 0.4 -Current Size (cm) - Depth 0.2 -Total Square Cm 0.20 -Date of Last Picture (Recall this 12/14/17 field) -Photo Taken Yes -Epithelialization None Present -Tunneling No -Undermining/Tunneling No -Circular Undermining No -Classification - Thickness Full Thickness without Exposed Support Structure -Exudate Amt Small (1-33%) -Exudate Type Serosanguineous -Wound Margin Distinct, Outline Attached -Granulation Amt Small (1-33%) -Granulation Quality Pale [place] -Slough/Fibrin Yes -Necrosis Amt Small (1-33%) -Necrotic Tissue Type Adherent Slough -Structure Exposed Fascia Fat Layer Exposed -Texture (Keila-wound Skin Appearance) Callus -Moisture (Keila-wound Skin Appearance Dry/Scaly ) -Color (Keila-wound Skin Appearance) No Abnormality -Temperature (Keila-wound Skin No Abnormality Appearance) (Pt Warm) -Tenderness on Palpation (Keila-wound Yes Skin Appearance) -Ulcer Cleansing Rinsed/ Irrigated with Saline -Foul Odor after Cleansing No -Anesthetic Used 4% Lidocaine Solution [Edema Assessment] -Lower Limb Edema Present No WC - Nurse 2 - General Ulcer CM Notes Start: 12/14/17 08:21 Freq: Status: Active Protocol: Activity Type Activity Date Activity User E-Sign Co-Sign Detail Recorded Client Recorded Date Recorded By Document 12/14/17 09:04 [email or web address] 12/14/17 09:05 12/14/17 09:04 Wound Center Nurse 2 [Procedure/Treatment] 2-left hallux -Time 09:04 -Correct Patient Yes -Correct Side, Site, Position Yes -Correct Procedure Yes -Procedure Performed Yes -Type of Procedure Debridement -Clinical Debridement Subcutaneous -Post Debridement Size (cm) - Length 1.1 -Post Debridement Size (cm) - Width 0.3 -Post Debridement Size (cm) - Depth 0.2 -Total Square Cm 0.33 -Wound/Ulcer Outcome Not Healed -Ulcer Cleansing Not Cleansed -Foul Odor after Cleansing No -Bioengineered Tissue No -Bleeding Controlled with Pressure -Treatment Response Procedure Tolerated Well [See Physician Procedure note for Specifics] Pain Scale: 0-10 Numeric [Pain] -Is Patient Pain Free? Yes Musculoskeletal: - - No pain with manipulation of ulcer site Neurological: - - Epicritic sensation grossly absent to lower extremity Psych/Mental Status: Normal Affect, Appropriate Debridement Note Post-Debridement Measurements/Treatment WC - Nurse 2 - General Ulcer CM Notes Start: 12/14/17 08:21 Freq: Status: Active Protocol: Activity Type Activity Date Activity User E-Sign Co-Sign Detail Recorded Client Recorded Date Recorded By Document 12/14/17 09:04 [id number] 12/14/17 09:05 12/14/17 09:04 Wound Center Nurse 2 2-left hallux -Time 09:04 -Correct Patient Yes -Correct Side, Site, Position Yes -Correct Procedure Yes -Procedure Performed Yes -Type of Procedure Debridement -Clinical Debridement Subcutaneous -Post Debridement Size (cm) - Length 1.1 -Post Debridement Size (cm) - Width 0.3 -Post Debridement Size (cm) - Depth 0.2 -Total Square Cm 0.33 -Wound/Ulcer Outcome Not Healed -Ulcer Cleansing Not Cleansed -Foul Odor after Cleansing No -Bioengineered Tissue No -Bleeding Controlled with Pressure -Treatment Response Procedure Tolerated Well Pain Scale: 0-10 Numeric Is Patient Pain Free? Yes Wound debrided: Left plantar medial hallux Laterality: Left Type of Debridement: Excisional debridement Anesthesia Used: 4% Lidocaine Solution Depth: in the subcutaneous layer Percentage of wound debrided: 100 Instrument Used: #15 blade Tissue Removed: Adherent slough, fibrin, hyperkeratotic tissue Severity: Fat Layer Exposed Amount of bleeding with debridement: Mild Bleeding Controlled with: Pressure Patient tolerated procedure well Assessment/Plan Assessment: Ulcer with fat layer exposed to left plantar medial hallux. DM 2 with neuropathy Plan: Patient was carefully examined and evaluated again today. Another subcutaneous debridement was performed as noted in the clinical panel. Once complete, the ulcer site was carefully cleansed with normal sterile saline, and then dressed with slightly moistened lluvia and a dry sterile dressing. The patient was instructed to continue to change his dressing in this manner daily. The importance of offloading the area was again stressed today. He has been wearing surgical shoe with offloading padding applied to the base of the shoe to offload the ulcer site as much as he can. He admits to walking without it from his couch to his bathroom from time to time. The patient is currently off work, and was instructed to stay off of his feet as much as possible, but was instructed to use the surgical shoe at all times if he absolutely had to be up on his feet. Patient was measured at [facility] for his diabetic shoes with offloading to ulcer site, and he will pick them up tomorrow. Order for 3 view x ray of the left foot were placed, and the results were reviewed with the patient at a prior visit. There were degenerative changes appreciated as well as bunion deformity, but there was no soft tissue emphysema or current signs of osteomyelitis appreciated. I also recommended nutritional supplementation with a high protein diet in order to optimize ulcer healing. I also discussed the importance of tight glycemic control with this patient. He says that he understands this. The patient was educated on all signs and symptoms of local and systemic infection, and was instructed to go to the emergency room immediately should he notice any of these. All in any other questions were answered to the patient's satisfaction. Patient will follow-up at the wound center in 1 week, or sooner if needed.
[2017-12-21 08:14] VITALS: BP 162/93; PULSE 99; RESP 18; TEMP 36
--- NOTE | 2017-12-21 09:01 | PCM.WC.PN ---
(1) Chronic ulcer of left foot with fat layer exposed Status: Acute Current Visit: No Code(s): L97.522 - Non-pressure chronic ulcer of other part of left foot with fat layer exposed (2) Type 2 diabetes mellitus with diabetic polyneuropathy Status: Acute Current Visit: No Code(s): E11.42 - Type 2 diabetes mellitus with diabetic polyneuropathy (3) Delayed wound healing Status: Acute Current Visit: No Code(s): T14.8XXD - Other injury of unspecified body region, subsequent encounter (4) Edema, lower extremity Status: Acute Current Visit: No Code(s): R60.0 - Localized edema Type of Wound Date of Service: 12/21/17 Chief Complaint: non healing post op wound of perineum s/p debridement of large perirectal abscess History of Wound: This 51 year old diabetic male presents to wound center today for ulcer of his left medial plantar great toe. Patient states that he has been trying to lose weight and has been working out on the treadmill at [employer]. He says after a while, he noticed some callus building up on his left great toe. He says the callus continued to grow but he did not think much of it. He showed his primary care physician who took some of the callus down and noticed a small ulcer. They tried to treat with keflex and local care, but it has not healed yet. Patient has since finished his keflex prescription and says he has been having daily dressing changes with the help of his , using neosporin and dressing. Patient denies any purulence or extending redness. He currently denies any feelings of nausea, vomiting, fever, or chills. Progress of Wound: Patient presents for follow up of ulcer to left great toe. Ulcer continues to show slow steady improvement. Patient had picked up his new diabetic offloading shoes from [employer] last week and says that he has been wearing them and that he feels they are helping. He still admits to wearing only slippers in the house with no offloading though. He did well with dressing changes over the last week. He denies any feelings of nausea, vomiting, fever, chills, or shortness of breath. - Physical Exam Vital Signs Temp Pulse Resp BP 96.8 F L 99 18 162/93 H 12/21/17 08:14 12/21/17 08:14 12/21/17 08:14 12/21/17 08:14 General: Alert, Oriented x3, Cooperative, No apparent distress Extremities: Capillary Refill Less than 3 Seconds, No Calf Tenderness - Negative Suellen and Santiago sign, Edema - Slight lower extremity edema, Peripheral Pulses Normal - DP and PT pulses palpable Skin: Ulcer/ Wound - Ulcer to left plantar medial hallux with fat layer exposed. Patient continues to be a mixture of adherent slough, fibrin as well as increasing granular tissue. There continues to be some hyperkeratotic callus buildup around the ulcer periphery. There is no purulence, no malodor, no extending cellulitis, no increased warmth, no probing to bone, no tracking, and no undermining noted. Wound Measurements and Assessment WC - Nurse 1 - General Ulcer Measurement Start: 12/14/17 08:21 Freq: Status: Active Protocol: Activity Type Activity Date Activity User E-Sign Co-Sign Detail Recorded Client Recorded Date Recorded By Document 12/21/17 08:14 [id number] 12/21/17 08:16 12/21/17 08:14 Wound Center Nurse 1 [Ulcer Assessment] 2-left hallux -Combined with other wound No -Current Size (cm) - Length 0.5 -Current Size (cm) - Width 0.1 -Current Size (cm) - Depth 0.1 -Total Square Cm 0.05 -Photo Taken No -Epithelialization Small 1-33% -Tunneling No -Undermining/Tunneling No -Circular Undermining No -Classification - Thickness Full Thickness without Exposed Support Structure -Exudate Amt Small (1-33%) -Exudate Type Serosanguineous -Wound Margin Distinct, Outline Attached -Granulation Amt Medium (34-66%) -Granulation Quality [place] -Slough/Fibrin Yes -Necrosis Amt Small (1-33%) -Necrotic Tissue Type Adherent Slough -Structure Exposed Fascia Fat Layer Exposed -Texture (Keila-wound Skin Appearance) Callus Scarring -Moisture (Keila-wound Skin Appearance Dry/Scaly ) -Color (Keila-wound Skin Appearance) No Abnormality Assessed -Temperature (Keila-wound Skin No Abnormality Appearance) (Pt Warm) -Tenderness on Palpation (Keila-wound No Skin Appearance) -Ulcer Cleansing Rinsed/ Irrigated with Saline -Foul Odor after Cleansing No -Anesthetic Used 4% Lidocaine Solution [Edema Assessment] -Lower Limb Edema Present No WC - Nurse 2 - General Ulcer CM Notes Start: 12/14/17 08:21 Freq: Status: Active Protocol: Activity Type Activity Date Activity User E-Sign Co-Sign Detail Recorded Client Recorded Date Recorded By Document 12/21/17 08:28 [id number] 12/21/17 08:30 12/21/17 08:28 Wound Center Nurse 2 [Procedure/Treatment] 2-left hallux -Time 08:28 -Correct Patient Yes -Correct Side, Site, Position Yes -Correct Procedure Yes -Procedure Performed Yes -Type of Procedure Debridement -Clinical Debridement Subcutaneous -Post Debridement Size (cm) - Length 0.6 -Post Debridement Size (cm) - Width 0.2 -Post Debridement Size (cm) - Depth 0.2 -Total Square Cm 0.12 -Wound/Ulcer Outcome Not Healed -Ulcer Cleansing Not Cleansed -Foul Odor after Cleansing No -Bioengineered Tissue No -Bleeding Controlled with NA -Treatment Response Procedure Tolerated Well [See Physician Procedure note for Specifics] Pain Scale: 0-10 Numeric [Pain] -Is Patient Pain Free? Yes Musculoskeletal: - - No pain with manipulation of ulcer site Neurological: - - Epicritic sensation grossly absent to lower extremity Psych/Mental Status: Normal Affect, Appropriate Debridement Note Post-Debridement Measurements/Treatment WC - Nurse 2 - General Ulcer CM Notes Start: 12/14/17 08:21 Freq: Status: Active Protocol: Activity Type Activity Date Activity User E-Sign Co-Sign Detail Recorded Client Recorded Date Recorded By Document 12/14/17 09:04 [id number] 12/14/17 09:05 Document 12/21/17 08:28 [id number] 12/21/17 08:30 12/14/17 12/21/17 09:04 08:28 Wound Center Nurse 2 2-left hallux -Time 09:04 08:28 -Correct Patient Yes Yes -Correct Side, Site, Position Yes Yes -Correct Procedure Yes Yes -Procedure Performed Yes Yes -Type of Procedure Debridement Debridement -Clinical Debridement Subcutaneous Subcutaneous -Post Debridement Size (cm) - Length 1.1 0.6 -Post Debridement Size (cm) - Width 0.3 0.2 -Post Debridement Size (cm) - Depth 0.2 0.2 -Total Square Cm 0.33 0.12 -Wound/Ulcer Outcome Not Healed Not Healed -Ulcer Cleansing Not Cleansed Not Cleansed -Foul Odor after Cleansing No No -Bioengineered Tissue No No -Bleeding Controlled with Pressure NA -Treatment Response Procedure Procedure Tolerated Well Tolerated Well Pain Scale: 0-10 Numeric Is Patient Pain Free? Yes Yes Wound debrided: Left plantar medial hallux Laterality: Left Type of Debridement: Excisional debridement Anesthesia Used: 4% Lidocaine Solution Depth: in the subcutaneous layer Percentage of wound debrided: 100 Instrument Used: #15 blade Tissue Removed: Adherent slough, fibrin, hyperkeratotic tissue Severity: Fat Layer Exposed Amount of bleeding with debridement: Mild Bleeding Controlled with: Pressure Patient tolerated procedure well Assessment/Plan Assessment: Ulcer with fat layer exposed to left plantar medial hallux. DM 2 with neuropathy Plan: Patient was carefully examined and evaluated again today. Another subcutaneous debridement was performed as noted in the clinical panel. Once complete, the ulcer site was carefully cleansed with normal sterile saline, and then dressed with slightly moistened lluvia and a dry sterile dressing. The patient is to continue to change his dressing in this manner daily. The importance of offloading the area was again stressed today. Patient says he has been wearing his new diabetic offloading shoes since he got them last Monday. He does admit to only wearing house slippers in his house without any offloading, but admits that he tries to limit the amount hes on his feet at home. He was instructed to wear his shoes in the house as well until the area is healed up. The patient is currently off work, and was instructed to stay off of his feet as much as possible, but was instructed to use the surgical shoe at all times if he absolutely had to be up on his feet. Order for 3 view x ray of the left foot were placed, and the results were reviewed with the patient at a prior visit. There were degenerative changes appreciated as well as bunion deformity, but there was no soft tissue emphysema or current signs of osteomyelitis appreciated. I also recommended nutritional supplementation with a high protein diet in order to optimize ulcer healing. I also discussed the importance of tight glycemic control with this patient. He says that he understands this. The patient was educated on all signs and symptoms of local and systemic infection, and was instructed to go to the emergency room immediately should he notice any of these. All in any other questions were answered to the patient's satisfaction. Patient will follow-up at the wound center in 1 week, or sooner if needed.
--- NOTE | 2017-12-21 09:10 | PN.PCM_ITS ---
(1) Chronic ulcer of left foot with fat layer exposed Status: Acute Current Visit: No Code(s): L97.522 - Non-pressure chronic ulcer of other part of left foot with fat layer exposed (2) Type 2 diabetes mellitus with diabetic polyneuropathy Status: Acute Current Visit: No Code(s): E11.42 - Type 2 diabetes mellitus with diabetic polyneuropathy (3) Delayed wound healing Status: Acute Current Visit: No Code(s): T14.8XXD - Other injury of unspecified body region, subsequent encounter (4) Edema, lower extremity Status: Acute Current Visit: No Code(s): R60.0 - Localized edema Type of Wound Date of Service: 12/21/17 Chief Complaint: non healing post op wound of perineum s/p debridement of large perirectal abscess History of Wound: This 51 year old diabetic male presents to wound center today for ulcer of his left medial plantar great toe. Patient states that he has been trying to lose weight and has been working out on the treadmill at [employer]. He says after a while, he noticed some callus building up on his left great toe. He says the callus continued to grow but he did not think much of it. He showed his primary care physician who took some of the callus down and noticed a small ulcer. They tried to treat with keflex and local care, but it has not healed yet. Patient has since finished his keflex prescription and says he has been having daily dressing changes with the help of his , using neosporin and dressing. Patient denies any purulence or extending redness. He currently denies any feelings of nausea, vomiting, fever, or chills. Progress of Wound: Patient presents for follow up of ulcer to left great toe. Ulcer continues to show slow steady improvement. Patient had picked up his new diabetic offloading shoes from [email or web address] last week and says that he has been wearing them and that he feels they are helping. He still admits to wearing only slippers in the house with no offloading though. He did well with dressing changes over the last week. He denies any feelings of nausea, vomiting , fever, chills, or shortness of breath. - Physical Exam Vital Signs Temp Pulse Resp BP 96.8 F L 99 18 162/93 H 12/21/17 08:14 12/21/17 08:14 12/21/17 08:14 12/21/17 08:14 General: Alert, Oriented x3, Cooperative, No apparent distress Extremities: Capillary Refill Less than 3 Seconds, No Calf Tenderness - Negative Suellen and Santiago sign, Edema - Slight lower extremity edema, Peripheral Pulses Normal - DP and PT pulses palpable Skin: Ulcer/ Wound - Ulcer to left plantar medial hallux with fat layer exposed. Patient continues to be a mixture of adherent slough, fibrin as well as increasing granular tissue. There continues to be some hyperkeratotic callus buildup around the ulcer periphery. There is no purulence, no malodor, no extending cellulitis, no increased warmth, no probing to bone, no tracking, and no undermining noted. Wound Measurements and Assessment WC - Nurse 1 - General Ulcer Measurement Start: 12/14/17 08:21 Freq: Status: Active Protocol: Activity Type Activity Date Activity User E-Sign Co-Sign Detail Recorded Client Recorded Date Recorded By Document 12/21/17 08:14 [id number] 12/21/17 08:16 12/21/17 08:14 Wound Center Nurse 1 [Ulcer Assessment] 2-left hallux -Combined with other wound No -Current Size (cm) - Length 0.5 -Current Size (cm) - Width 0.1 -Current Size (cm) - Depth 0.1 -Total Square Cm 0.05 -Photo Taken No -Epithelialization Small 1-33% -Tunneling No -Undermining/Tunneling No -Circular Undermining No -Classification - Thickness Full Thickness without Exposed Support Structure -Exudate Amt Small (1-33%) -Exudate Type Serosanguineous -Wound Margin Distinct, Outline Attached -Granulation Amt Medium (34-66%) -Granulation Quality [place] -Slough/Fibrin Yes -Necrosis Amt Small (1-33%) -Necrotic Tissue Type Adherent Slough -Structure Exposed Fascia Fat Layer Exposed -Texture (Keila-wound Skin Appearance) Callus Scarring -Moisture (Keila-wound Skin Appearance Dry/Scaly ) -Color (Keila-wound Skin Appearance) No Abnormality Assessed -Temperature (Keila-wound Skin No Abnormality Appearance) (Pt Warm) -Tenderness on Palpation (Keila-wound No Skin Appearance) -Ulcer Cleansing Rinsed/ Irrigated with Saline -Foul Odor after Cleansing No -Anesthetic Used 4% Lidocaine Solution [Edema Assessment] -Lower Limb Edema Present No WC - Nurse 2 - General Ulcer CM Notes Start: 12/14/17 08:21 Freq: Status: Active Protocol: Activity Type Activity Date Activity User E-Sign Co-Sign Detail Recorded Client Recorded Date Recorded By Document 12/21/17 08:28 [id number] 12/21/17 08:30 12/21/17 08:28 Wound Center Nurse 2 [Procedure/Treatment] 2-left hallux -Time 08:28 -Correct Patient Yes -Correct Side, Site, Position Yes -Correct Procedure Yes -Procedure Performed Yes -Type of Procedure Debridement -Clinical Debridement Subcutaneous -Post Debridement Size (cm) - Length 0.6 -Post Debridement Size (cm) - Width 0.2 -Post Debridement Size (cm) - Depth 0.2 -Total Square Cm 0.12 -Wound/Ulcer Outcome Not Healed -Ulcer Cleansing Not Cleansed -Foul Odor after Cleansing No -Bioengineered Tissue No -Bleeding Controlled with NA -Treatment Response Procedure Tolerated Well [See Physician Procedure note for Specifics] Pain Scale: 0-10 Numeric [Pain] -Is Patient Pain Free? Yes Musculoskeletal: - - No pain with manipulation of ulcer site Neurological: - - Epicritic sensation grossly absent to lower extremity Psych/Mental Status: Normal Affect, Appropriate Debridement Note Post-Debridement Measurements/Treatment WC - Nurse 2 - General Ulcer CM Notes Start: 12/14/17 08:21 Freq: Status: Active Protocol: Activity Type Activity Date Activity User E-Sign Co-Sign Detail Recorded Client Recorded Date Recorded By Document 12/14/17 09:04 [id number] 12/14/17 09:05 Document 12/21/17 08:28 [id number] 12/21/17 08:30 12/14/17 12/21/17 09:04 08:28 Wound Center Nurse 2 2-left hallux -Time 09:04 08:28 -Correct Patient Yes Yes -Correct Side, Site, Position Yes Yes -Correct Procedure Yes Yes -Procedure Performed Yes Yes -Type of Procedure Debridement Debridement -Clinical Debridement Subcutaneous Subcutaneous -Post Debridement Size (cm) - Length 1.1 0.6 -Post Debridement Size (cm) - Width 0.3 0.2 -Post Debridement Size (cm) - Depth 0.2 0.2 -Total Square Cm 0.33 0.12 -Wound/Ulcer Outcome Not Healed Not Healed -Ulcer Cleansing Not Cleansed Not Cleansed -Foul Odor after Cleansing No No -Bioengineered Tissue No No -Bleeding Controlled with Pressure NA -Treatment Response Procedure Procedure Tolerated Well Tolerated Well Pain Scale: 0-10 Numeric Is Patient Pain Free? Yes Yes Wound debrided: Left plantar medial hallux Laterality: Left Type of Debridement: Excisional debridement Anesthesia Used: 4% Lidocaine Solution Depth: in the subcutaneous layer Percentage of wound debrided: 100 Instrument Used: #15 blade Tissue Removed: Adherent slough, fibrin, hyperkeratotic tissue Severity: Fat Layer Exposed Amount of bleeding with debridement: Mild Bleeding Controlled with: Pressure Patient tolerated procedure well Assessment/Plan Assessment: Ulcer with fat layer exposed to left plantar medial hallux. DM 2 with neuropathy Plan: Patient was carefully examined and evaluated again today. Another subcutaneous debridement was performed as noted in the clinical panel. Once complete, the ulcer site was carefully cleansed with normal sterile saline, and then dressed with slightly moistened lluvia and a dry sterile dressing. The patient is to continue to change his dressing in this manner daily. The importance of offloading the area was again stressed today. Patient says he has been wearing his new diabetic offloading shoes since he got them last Monday. He does admit to only wearing house slippers in his house without any offloading, but admits that he tries to limit the amount hes on his feet at home. He was instructed to wear his shoes in the house as well until the area is healed up. The patient is currently off work, and was instructed to stay off of his feet as much as possible, but was instructed to use the surgical shoe at all times if he absolutely had to be up on his feet. Order for 3 view x ray of the left foot were placed, and the results were reviewed with the patient at a prior visit. There were degenerative changes appreciated as well as bunion deformity, but there was no soft tissue emphysema or current signs of osteomyelitis appreciated. I also recommended nutritional supplementation with a high protein diet in order to optimize ulcer healing. I also discussed the importance of tight glycemic control with this patient. He says that he understands this. The patient was educated on all signs and symptoms of local and systemic infection, and was instructed to go to the emergency room immediately should he notice any of these. All in any other questions were answered to the patient's satisfaction. Patient will follow-up at the wound center in 1 week, or sooner if needed.
[2017-12-28 08:13] VITALS: BP 152/91; PULSE 102; RESP 22; TEMP 37.5
--- NOTE | 2017-12-28 09:16 | PCM.WC.PN ---
(1) Chronic ulcer of left foot with fat layer exposed Status: Acute Current Visit: No Code(s): L97.522 - Non-pressure chronic ulcer of other part of left foot with fat layer exposed (2) Type 2 diabetes mellitus with diabetic polyneuropathy Status: Acute Current Visit: No Code(s): E11.42 - Type 2 diabetes mellitus with diabetic polyneuropathy (3) Delayed wound healing Status: Acute Current Visit: No Code(s): T14.8XXD - Other injury of unspecified body region, subsequent encounter (4) Edema, lower extremity Status: Acute Current Visit: No Code(s): R60.0 - Localized edema Type of Wound Date of Service: 12/28/17 Chief Complaint: non healing post op wound of perineum s/p debridement of large perirectal abscess History of Wound: This 51 year old diabetic male presents to wound center today for ulcer of his left medial plantar great toe. Patient states that he has been trying to lose weight and has been working out on the treadmill at [employer]. He says after a while, he noticed some callus building up on his left great toe. He says the callus continued to grow but he did not think much of it. He showed his primary care physician who took some of the callus down and noticed a small ulcer. They tried to treat with keflex and local care, but it has not healed yet. Patient has since finished his keflex prescription and says he has been having daily dressing changes with the help of his , using neosporin and dressing. Patient denies any purulence or extending redness. He currently denies any feelings of nausea, vomiting, fever, or chills. Progress of Wound: Patient presents for follow up of ulcer to left great toe. Ulcer continues to show slow steady improvement. Patient had picked up his new diabetic offloading shoes from [employer] and says that he has been wearing them and that he feels they are helping. He still admits to wearing only slippers in the house with no offloading though. He did well with dressing changes over the last week with the help of his . He denies any feelings of nausea, vomiting, fever, chills, or shortness of breath. - Physical Exam Vital Signs Temp Pulse Resp BP 99.5 F H 102 H 22 H 152/91 H 12/28/17 08:13 12/28/17 08:13 12/28/17 08:13 12/28/17 08:13 General: Alert, Oriented x3, Cooperative, No apparent distress Extremities: Capillary Refill Less than 3 Seconds, No Calf Tenderness - Negative Suellen and Santiago sign, Edema - Slight lower extremity edema, Peripheral Pulses Normal - DP and PT pulses palpable Skin: Ulcer/ Wound - Ulcer to left plantar medial hallux with fat layer exposed. Ulcer continues to be a mixture of adherent slough, fibrin, and granular tissue. There is some area of surrounding hyperkeratotic callus buildup around the ulcer periphery. There is no purulence, no malodor, no extending cellulitis, no increase in warmth, no probing to bone, no tracking, and no undermining appreciated to the ulcer. Wound Measurements and Assessment WC - Nurse 1 - General Ulcer Measurement Start: 12/14/17 08:21 Freq: Status: Active Protocol: Activity Type Activity Date Activity User E-Sign Co-Sign Detail Recorded Client Recorded Date Recorded By Document 12/28/17 08:13 DL [id number] 12/28/17 08:17 DL 12/28/17 08:13 Wound Center Nurse 1 [Ulcer Assessment] 2-left hallux -Current Size (cm) - Length 0.6 -Current Size (cm) - Width 0.4 -Current Size (cm) - Depth 0.2 -Total Square Cm 0.24 -Photo Taken No -Maximum Distance #2 (cm) 0.2 -Circular Undermining Yes -Exudate Amt Small (1-33%) -Exudate Type Serosanguineous -Wound Margin Distinct, Outline Attached -Granulation Amt Small (1-33%) -Granulation Quality Red -Necrosis Amt Small (1-33%) -Necrotic Tissue Type Adherent Slough -Structure Exposed N/A -Texture (Keila-wound Skin Appearance) Callus -Moisture (Keila-wound Skin Appearance Dry/Scaly ) -Color (Keila-wound Skin Appearance) No Abnormality -Temperature (Keila-wound Skin No Abnormality Appearance) (Pt Warm) -Ulcer Cleansing Rinsed/ Irrigated with Saline -Foul Odor after Cleansing No -Anesthetic Used 4% Lidocaine Solution WC - Nurse 2 - General Ulcer CM Notes Start: 12/14/17 08:21 Freq: Status: Active Protocol: Activity Type Activity Date Activity User E-Sign Co-Sign Detail Recorded Client Recorded Date Recorded By Document 12/28/17 08:28 [id number] 12/28/17 08:30 12/28/17 08:28 Wound Center Nurse 2 [Procedure/Treatment] -Time 08:28 -Correct Patient Yes -Correct Side, Site, Position Yes -Correct Procedure Yes -Procedure Performed Yes -Type of Procedure Debridement -Clinical Debridement Subcutaneous -Post Debridement Size (cm) - Length 0.5 -Post Debridement Size (cm) - Width 0.3 -Post Debridement Size (cm) - Depth 0.2 -Total Square Cm 0.15 -Wound/Ulcer Outcome Not Healed -Ulcer Cleansing Not Cleansed -Foul Odor after Cleansing No -Bioengineered Tissue No -Bleeding Controlled with NA -Treatment Response Procedure Tolerated Well [See Physician Procedure note for Specifics] Pain Scale: 0-10 Numeric [Pain] -Is Patient Pain Free? Yes Musculoskeletal: - - No pain with manipulation of ulcer site Neurological: - - Epicritic sensation grossly absent to lower extremity Psych/Mental Status: Normal Affect, Appropriate Debridement Note Post-Debridement Measurements/Treatment WC - Nurse 2 - General Ulcer CM Notes Start: 12/14/17 08:21 Freq: Status: Active Protocol: Activity Type Activity Date Activity User E-Sign Co-Sign Detail Recorded Client Recorded Date Recorded By Document 12/14/17 09:04 [id number] 12/14/17 09:05 Document 12/21/17 08:28 [id number] 12/21/17 08:30 Document 12/28/17 08:28 [id number] 12/28/17 08:30 12/14/17 12/21/17 12/28/17 09:04 08:28 08:28 Wound Center Nurse 2 2-left hallux -Time 09:04 08:28 08:28 -Correct Patient Yes Yes Yes -Correct Side, Site, Position Yes Yes Yes -Correct Procedure Yes Yes Yes -Procedure Performed Yes Yes Yes -Type of Procedure Debridement Debridement Debridement -Clinical Debridement Subcutaneous Subcutaneous Subcutaneous -Post Debridement Size (cm) - Length 1.1 0.6 0.5 -Post Debridement Size (cm) - Width 0.3 0.2 0.3 -Post Debridement Size (cm) - Depth 0.2 0.2 0.2 -Total Square Cm 0.33 0.12 0.15 -Wound/Ulcer Outcome Not Healed Not Healed Not Healed -Ulcer Cleansing Not Cleansed Not Cleansed Not Cleansed -Foul Odor after Cleansing No No No -Bioengineered Tissue No No No -Bleeding Controlled with Pressure NA NA -Treatment Response Procedure Procedure Procedure Tolerated Well Tolerated Well Tolerated Well Pain Scale: 0-10 Numeric Is Patient Pain Free? Yes Yes Yes Wound debrided: Left plantar medial hallux Laterality: Left Type of Debridement: Excisional debridement Anesthesia Used: 4% Lidocaine Solution Depth: in the subcutaneous layer Percentage of wound debrided: 100 Instrument Used: #15 blade Tissue Removed: Adherent slough, fibrin, hyperkeratotic tissue Severity: Fat Layer Exposed Amount of bleeding with debridement: Mild Bleeding Controlled with: Pressure Patient tolerated procedure well Assessment/Plan Assessment: Ulcer with fat layer exposed to left plantar medial hallux. DM 2 with neuropathy Plan: Patient was carefully examined and evaluated again today. Another subcutaneous debridement was performed as noted in the clinical panel. Once complete, the ulcer site was carefully cleansed with normal sterile saline, and then dressed with slightly moistened lluvia and a dry sterile dressing. The patient is to continue to change his dressing in this manner daily with the help of his . The importance of offloading the area was again stressed today. Patient says he has been wearing his new diabetic offloading shoes since he got them at all times while weight bearing. He does admit to only wearing house slippers in his house without any offloading, but admits that he tries to limit the amount hes on his feet at home. He was instructed to wear his shoes in the house as well until the area is healed up. He was instructed to try to stay off of his feet all together as much as possible. The patient is currently off work, and was instructed to stay off of his feet as much as possible, but was instructed to use the surgical shoe at all times if he absolutely had to be up on his feet. Order for 3 view x ray of the left foot were placed, and the results were reviewed with the patient at a prior visit. There were degenerative changes appreciated as well as bunion deformity, but there was no soft tissue emphysema or current signs of osteomyelitis appreciated. I also recommended nutritional supplementation with a high protein diet in order to optimize ulcer healing. I also discussed the importance of tight glycemic control with this patient. He says that he understands this. The patient was educated on all signs and symptoms of local and systemic infection, and was instructed to go to the emergency room immediately should he notice any of these. All in any other questions were answered to the patient's satisfaction. Patient will follow-up at the wound center in 1 week, or sooner if needed.
--- NOTE | 2017-12-28 09:21 | PN.PCM_ITS ---
(1) Chronic ulcer of left foot with fat layer exposed Status: Acute Current Visit: No Code(s): L97.522 - Non-pressure chronic ulcer of other part of left foot with fat layer exposed (2) Type 2 diabetes mellitus with diabetic polyneuropathy Status: Acute Current Visit: No Code(s): E11.42 - Type 2 diabetes mellitus with diabetic polyneuropathy (3) Delayed wound healing Status: Acute Current Visit: No Code(s): T14.8XXD - Other injury of unspecified body region, subsequent encounter (4) Edema, lower extremity Status: Acute Current Visit: No Code(s): R60.0 - Localized edema Type of Wound Date of Service: 12/28/17 Chief Complaint: non healing post op wound of perineum s/p debridement of large perirectal abscess History of Wound: This 51 year old diabetic male presents to wound center today for ulcer of his left medial plantar great toe. Patient states that he has been trying to lose weight and has been working out on the treadmill at [employer]. He says after a while, he noticed some callus building up on his left great toe. He says the callus continued to grow but he did not think much of it. He showed his primary care physician who took some of the callus down and noticed a small ulcer. They tried to treat with keflex and local care, but it has not healed yet. Patient has since finished his keflex prescription and says he has been having daily dressing changes with the help of his , using neosporin and dressing. Patient denies any purulence or extending redness. He currently denies any feelings of nausea, vomiting, fever, or chills. Progress of Wound: Patient presents for follow up of ulcer to left great toe. Ulcer continues to show slow steady improvement. Patient had picked up his new diabetic offloading shoes from [employer] and says that he has been wearing them and that he feels they are helping. He still admits to wearing only slippers in the house with no offloading though. He did well with dressing changes over the last week with the help of his . He denies any feelings of nausea, vomiting , fever, chills, or shortness of breath. - Physical Exam Vital Signs Temp Pulse Resp BP 99.5 F H 102 H 22 H 152/91 H 12/28/17 08:13 12/28/17 08:13 12/28/17 08:13 12/28/17 08:13 General: Alert, Oriented x3, Cooperative, No apparent distress Extremities: Capillary Refill Less than 3 Seconds, No Calf Tenderness - Negative Suellen and Santiago sign, Edema - Slight lower extremity edema, Peripheral Pulses Normal - DP and PT pulses palpable Skin: Ulcer/ Wound - Ulcer to left plantar medial hallux with fat layer exposed. Ulcer continues to be a mixture of adherent slough, fibrin, and granular tissue. There is some area of surrounding hyperkeratotic callus buildup around the ulcer periphery. There is no purulence, no malodor, no extending cellulitis, no increase in warmth, no probing to bone, no tracking, and no undermining appreciated to the ulcer. Wound Measurements and Assessment WC - Nurse 1 - General Ulcer Measurement Start: 12/14/17 08:21 Freq: Status: Active Protocol: Activity Type Activity Date Activity User E-Sign Co-Sign Detail Recorded Client Recorded Date Recorded By Document 12/28/17 08:13 DL [id number] 12/28/17 08:17 DL 12/28/17 08:13 Wound Center Nurse 1 [Ulcer Assessment] 2-left hallux -Current Size (cm) - Length 0.6 -Current Size (cm) - Width 0.4 -Current Size (cm) - Depth 0.2 -Total Square Cm 0.24 -Photo Taken No -Maximum Distance #2 (cm) 0.2 -Circular Undermining Yes -Exudate Amt Small (1-33%) -Exudate Type Serosanguineous -Wound Margin Distinct, Outline Attached -Granulation Amt Small (1-33%) -Granulation Quality Red -Necrosis Amt Small (1-33%) -Necrotic Tissue Type Adherent Slough -Structure Exposed N/A -Texture (Keila-wound Skin Appearance) Callus -Moisture (Keila-wound Skin Appearance Dry/Scaly ) -Color (Keila-wound Skin Appearance) No Abnormality -Temperature (Keila-wound Skin No Abnormality Appearance) (Pt Warm) -Ulcer Cleansing Rinsed/ Irrigated with Saline -Foul Odor after Cleansing No -Anesthetic Used 4% Lidocaine Solution WC - Nurse 2 - General Ulcer CM Notes Start: 12/14/17 08:21 Freq: Status: Active Protocol: Activity Type Activity Date Activity User E-Sign Co-Sign Detail Recorded Client Recorded Date Recorded By Document 12/28/17 08:28 [id number] 12/28/17 08:30 12/28/17 08:28 Wound Center Nurse 2 [Procedure/Treatment] -Time 08:28 -Correct Patient Yes -Correct Side, Site, Position Yes -Correct Procedure Yes -Procedure Performed Yes -Type of Procedure Debridement -Clinical Debridement Subcutaneous -Post Debridement Size (cm) - Length 0.5 -Post Debridement Size (cm) - Width 0.3 -Post Debridement Size (cm) - Depth 0.2 -Total Square Cm 0.15 -Wound/Ulcer Outcome Not Healed -Ulcer Cleansing Not Cleansed -Foul Odor after Cleansing No -Bioengineered Tissue No -Bleeding Controlled with NA -Treatment Response Procedure Tolerated Well [See Physician Procedure note for Specifics] Pain Scale: 0-10 Numeric [Pain] -Is Patient Pain Free? Yes Musculoskeletal: - - No pain with manipulation of ulcer site Neurological: - - Epicritic sensation grossly absent to lower extremity Psych/Mental Status: Normal Affect, Appropriate Debridement Note Post-Debridement Measurements/Treatment WC - Nurse 2 - General Ulcer CM Notes Start: 12/14/17 08:21 Freq: Status: Active Protocol: Activity Type Activity Date Activity User E-Sign Co-Sign Detail Recorded Client Recorded Date Recorded By Document 12/14/17 09:04 [id number] 12/14/17 09:05 Document 12/21/17 08:28 [id number] 12/21/17 08:30 Document 12/28/17 08:28 [id number] 12/28/17 08:30 12/14/17 12/21/17 12/28/17 09:04 08:28 08:28 Wound Center Nurse 2 2-left hallux -Time 09:04 08:28 08:28 -Correct Patient Yes Yes Yes -Correct Side, Site, Position Yes Yes Yes -Correct Procedure Yes Yes Yes -Procedure Performed Yes Yes Yes -Type of Procedure Debridement Debridement Debridement -Clinical Debridement Subcutaneous Subcutaneous Subcutaneous -Post Debridement Size (cm) - Length 1.1 0.6 0.5 -Post Debridement Size (cm) - Width 0.3 0.2 0.3 -Post Debridement Size (cm) - Depth 0.2 0.2 0.2 -Total Square Cm 0.33 0.12 0.15 -Wound/Ulcer Outcome Not Healed Not Healed Not Healed -Ulcer Cleansing Not Cleansed Not Cleansed Not Cleansed -Foul Odor after Cleansing No No No -Bioengineered Tissue No No No -Bleeding Controlled with Pressure NA NA -Treatment Response Procedure Procedure Procedure Tolerated Well Tolerated Well Tolerated Well Pain Scale: 0-10 Numeric Is Patient Pain Free? Yes Yes Yes Wound debrided: Left plantar medial hallux Laterality: Left Type of Debridement: Excisional debridement Anesthesia Used: 4% Lidocaine Solution Depth: in the subcutaneous layer Percentage of wound debrided: 100 Instrument Used: #15 blade Tissue Removed: Adherent slough, fibrin, hyperkeratotic tissue Severity: Fat Layer Exposed Amount of bleeding with debridement: Mild Bleeding Controlled with: Pressure Patient tolerated procedure well Assessment/Plan Assessment: Ulcer with fat layer exposed to left plantar medial hallux. DM 2 with neuropathy Plan: Patient was carefully examined and evaluated again today. Another subcutaneous debridement was performed as noted in the clinical panel. Once complete, the ulcer site was carefully cleansed with normal sterile saline, and then dressed with slightly moistened lluvia and a dry sterile dressing. The patient is to continue to change his dressing in this manner daily with the help of his . The importance of offloading the area was again stressed today. Patient says he has been wearing his new diabetic offloading shoes since he got them at all times while weight bearing. He does admit to only wearing house slippers in his house without any offloading, but admits that he tries to limit the amount hes on his feet at home. He was instructed to wear his shoes in the house as well until the area is healed up. He was instructed to try to stay off of his feet all together as much as possible. The patient is currently off work, and was instructed to stay off of his feet as much as possible, but was instructed to use the surgical shoe at all times if he absolutely had to be up on his feet. Order for 3 view x ray of the left foot were placed, and the results were reviewed with the patient at a prior visit. There were degenerative changes appreciated as well as bunion deformity, but there was no soft tissue emphysema or current signs of osteomyelitis appreciated. I also recommended nutritional supplementation with a high protein diet in order to optimize ulcer healing. I also discussed the importance of tight glycemic control with this patient. He says that he understands this. The patient was educated on all signs and symptoms of local and systemic infection, and was instructed to go to the emergency room immediately should he notice any of these. All in any other questions were answered to the patient's satisfaction. Patient will follow-up at the wound center in 1 week, or sooner if needed.
[2018-01-04 08:25] VITALS: BP 144/92; PULSE 107; RESP 20; TEMP 36.4
--- NOTE | 2018-01-04 09:34 | PN.PCM_ITS ---
(1) Chronic ulcer of left foot with fat layer exposed Status: Acute Current Visit: No Code(s): L97.522 - Non-pressure chronic ulcer of other part of left foot with fat layer exposed (2) Type 2 diabetes mellitus with diabetic polyneuropathy Status: Acute Current Visit: No Code(s): E11.42 - Type 2 diabetes mellitus with diabetic polyneuropathy (3) Delayed wound healing Status: Acute Current Visit: No Code(s): T14.8XXD - Other injury of unspecified body region, subsequent encounter (4) Edema, lower extremity Status: Acute Current Visit: No Code(s): R60.0 - Localized edema Type of Wound Date of Service: 01/04/18 Chief Complaint: non healing post op wound of perineum s/p debridement of large perirectal abscess History of Wound: This 51 year old diabetic male presents to wound center today for ulcer of his left medial plantar great toe. Patient states that he has been trying to lose weight and has been working out on the treadmill at [employer]. He says after a while, he noticed some callus building up on his left great toe. He says the callus continued to grow but he did not think much of it. He showed his primary care physician who took some of the callus down and noticed a small ulcer. They tried to treat with keflex and local care, but it has not healed yet. Patient has since finished his keflex prescription and says he has been having daily dressing changes with the help of his , using neosporin and dressing. Patient denies any purulence or extending redness. He currently denies any feelings of nausea, vomiting, fever, or chills. Progress of Wound: Patient presents for follow up of ulcer to left great toe. Ulcer continues to show slow steady improvement. Patient continues to wear offloading diabetic shoes when weight bearing. He still admits to wearing only slippers in the house with no offloading though. He did well with dressing changes over the last week with the help of his . He denies any feelings of nausea, vomiting, fever, chills, or shortness of breath. - Physical Exam Vital Signs Temp Pulse Resp BP 97.6 F L 107 H 20 H 144/92 H 01/04/18 08:25 01/04/18 08:25 01/04/18 08:25 01/04/18 08:25 Wound Measurements and Assessment - Nurse 1 - General Ulcer Measurement Start: 12/14/17 08:21 Freq: Status: Active Protocol: Activity Type Activity Date Activity User E-Sign Co-Sign Detail Recorded Client Recorded Date Recorded By Document 01/04/18 08:25 DL [id number] 01/04/18 08:27 DL 01/04/18 08:25 Wound Center Nurse 1 [Ulcer Assessment] 2-left hallux -Current Size (cm) - Length 0.2 -Current Size (cm) - Width 0.2 -Current Size (cm) - Depth 0.4 -Total Square Cm 0.04 -Photo Taken No -Exudate Amt None Present (0 %) -Wound Margin Thickened -Granulation Amt None Present (0 %) -Necrosis Amt Small (1-33%) -Necrotic Tissue Type Adherent Slough -Structure Exposed N/A -Texture (Keila-wound Skin Appearance) Callus -Moisture (Keila-wound Skin Appearance No Abnormality ) -Color (Keila-wound Skin Appearance) No Abnormality -Temperature (Keila-wound Skin No Abnormality Appearance) (Pt Warm) -Tenderness on Palpation (Keila-wound No Skin Appearance) -Ulcer Cleansing Rinsed/ Irrigated with Saline -Foul Odor after Cleansing No -Anesthetic Used 4% Lidocaine Solution - Nurse 2 - General Ulcer CM Notes Start: 12/14/17 08:21 Freq: Status: Active Protocol: Activity Type Activity Date Activity User E-Sign Co-Sign Detail Recorded Client Recorded Date Recorded By Document 01/04/18 08:30 [id number] 01/04/18 08:31 01/04/18 08:30 Wound Center Nurse 2 [Procedure/Treatment] -Time 08:30 -Correct Patient Yes -Correct Side, Site, Position Yes -Correct Procedure Yes -Procedure Performed Yes -Type of Procedure Debridement -Clinical Debridement Subcutaneous -Post Debridement Size (cm) - Length 0.4 -Post Debridement Size (cm) - Width 0.2 -Post Debridement Size (cm) - Depth 0.2 -Total Square Cm 0.08 -Wound/Ulcer Outcome Not Healed -Ulcer Cleansing Not Cleansed -Foul Odor after Cleansing No -Bioengineered Tissue No -Bleeding Controlled with NA -Treatment Response Procedure Tolerated Well [See Physician Procedure note for Specifics] Pain Scale: 0-10 Numeric [Pain] -Is Patient Pain Free? Yes Debridement Note Post-Debridement Measurements/Treatment WC - Nurse 2 - General Ulcer CM Notes Start: 12/14/17 08:21 Freq: Status: Active Protocol: Activity Type Activity Date Activity User E-Sign Co-Sign Detail Recorded Client Recorded Date Recorded By Document 12/14/17 09:04 CS [id number] 12/14/17 09:05 CS Document 12/21/17 08:28 CS [id number] 12/21/17 08:30 CS Document 12/28/17 08:28 CS [id number] 12/28/17 08:30 CS Document 01/04/18 08:30 CS [id number] 01/04/18 08:31 CS 12/14/17 12/21/17 12/28/17 09:04 08:28 08:28 Wound Center Nurse 2 2-left hallux -Time 09:04 08:28 08:28 -Correct Patient Yes Yes Yes -Correct Side, Site, Position Yes Yes Yes -Correct Procedure Yes Yes Yes -Procedure Performed Yes Yes Yes -Type of Procedure Debridement Debridement Debridement -Clinical Debridement Subcutaneous Subcutaneous Subcutaneous -Post Debridement Size (cm) - Length 1.1 0.6 0.5 -Post Debridement Size (cm) - Width 0.3 0.2 0.3 -Post Debridement Size (cm) - Depth 0.2 0.2 0.2 -Total Square Cm 0.33 0.12 0.15 -Wound/Ulcer Outcome Not Healed Not Healed Not Healed -Ulcer Cleansing Not Cleansed Not Cleansed Not Cleansed -Foul Odor after Cleansing No No No -Bioengineered Tissue No No No -Bleeding Controlled with Pressure NA NA -Treatment Response Procedure Procedure Procedure Tolerated Well Tolerated Well Tolerated Well Pain Scale: 0-10 Numeric Is Patient Pain Free? Yes Yes Yes 01/04/18 08:30 Wound Center Nurse 2 2-left hallux -Time 08:30 -Correct Patient Yes -Correct Side, Site, Position Yes -Correct Procedure Yes -Procedure Performed Yes -Type of Procedure Debridement -Clinical Debridement Subcutaneous -Post Debridement Size (cm) - Length 0.4 -Post Debridement Size (cm) - Width 0.2 -Post Debridement Size (cm) - Depth 0.2 -Total Square Cm 0.08 -Wound/Ulcer Outcome Not Healed -Ulcer Cleansing Not Cleansed -Foul Odor after Cleansing No -Bioengineered Tissue No -Bleeding Controlled with NA -Treatment Response Procedure Tolerated Well Pain Scale: 0-10 Numeric Is Patient Pain Free? Yes Assessment/Plan Assessment: Ulcer with fat layer exposed to left plantar medial hallux. DM 2 with neuropathy Plan: Patient was carefully examined and evaluated again today. Another subcutaneous debridement was performed as noted in the clinical panel. Once complete, the ulcer site was carefully cleansed with normal sterile saline, and then dressed with slightly moistened lluvia and a dry sterile dressing. The patient is to continue to change his dressing in this manner daily with the help of his . The importance of offloading the area was again stressed today. Patient says he has been wearing his new diabetic offloading shoes since he got them at all times while weight bearing. He does admit to only wearing house slippers in his house without any offloading, but admits that he tries to limit the amount hes on his feet at home. He was instructed to wear his shoes in the house as well until the area is healed up. He was instructed to try to stay off of his feet all together as much as possible. The patient is currently off work, and was instructed to stay off of his feet as much as possible, but was instructed to use the surgical shoe at all times if he absolutely had to be up on his feet. Order for 3 view x ray of the left foot were placed, and the results were reviewed with the patient at a prior visit. There were degenerative changes appreciated as well as bunion deformity, but there was no soft tissue emphysema or current signs of osteomyelitis appreciated. I also recommended nutritional supplementation with a high protein diet in order to optimize ulcer healing. I also discussed the importance of tight glycemic control with this patient. He says that he understands this. The patient was educated on all signs and symptoms of local and systemic infection, and was instructed to go to the emergency room immediately should he notice any of these. All in any other questions were answered to the patient's satisfaction. Patient will follow-up at the wound center in 1 week, or sooner if needed.
--- NOTE | 2018-01-04 09:40 | PN.PCM_ITS ---
(1) Chronic ulcer of left foot with fat layer exposed Status: Acute Current Visit: No Code(s): L97.522 - Non-pressure chronic ulcer of other part of left foot with fat layer exposed (2) Type 2 diabetes mellitus with diabetic polyneuropathy Status: Acute Current Visit: No Code(s): E11.42 - Type 2 diabetes mellitus with diabetic polyneuropathy (3) Delayed wound healing Status: Acute Current Visit: No Code(s): T14.8XXD - Other injury of unspecified body region, subsequent encounter (4) Edema, lower extremity Status: Acute Current Visit: No Code(s): R60.0 - Localized edema Type of Wound Date of Service: 01/04/18 Chief Complaint: non healing post op wound of perineum s/p debridement of large perirectal abscess History of Wound: This 51 year old diabetic male presents to wound center today for ulcer of his left medial plantar great toe. Patient states that he has been trying to lose weight and has been working out on the treadmill at [employer]. He says after a while, he noticed some callus building up on his left great toe. He says the callus continued to grow but he did not think much of it. He showed his primary care physician who took some of the callus down and noticed a small ulcer. They tried to treat with keflex and local care, but it has not healed yet. Patient has since finished his keflex prescription and says he has been having daily dressing changes with the help of his , using neosporin and dressing. Patient denies any purulence or extending redness. He currently denies any feelings of nausea, vomiting, fever, or chills. Progress of Wound: Patient presents for follow up of ulcer to left great toe. Ulcer continues to show slow steady improvement. Patient continues to wear offloading diabetic shoes when weight bearing. He still admits to wearing only slippers in the house with no offloading though. He did well with dressing changes over the last week with the help of his . He denies any feelings of nausea, vomiting, fever, chills, or shortness of breath. - Physical Exam Vital Signs Temp Pulse Resp BP 97.6 F L 107 H 20 H 144/92 H 01/04/18 08:25 01/04/18 08:25 01/04/18 08:25 01/04/18 08:25 General: Alert, Oriented x3, Cooperative, No apparent distress Extremities: Capillary Refill Less than 3 Seconds, No Calf Tenderness - Negative Suellen and Santiago sign, Edema - Slight lower extremity edema, Peripheral Pulses Normal - DP and PT pulses palpable Skin: Ulcer/ Wound - Ulcer to left plantar medial hallux with fat layer exposed. Measurements noted below. The base continues to be a mixture of adherent slough, fibrin, granular tissue. There continues to be slow improvement each week. There is an area of surrounding hyperkeratotic callus buildup around the ulcer periphery, however this continues to improve weekly. There continues to be no purulence, no malodor, no extending cellulitis, no increase in warmth, no probing to bone, no tracking, and no undermining appreciated at this time. Wound Measurements and Assessment WC - Nurse 1 - General Ulcer Measurement Start: 12/14/17 08:21 Freq: Status: Active Protocol: Activity Type Activity Date Activity User E-Sign Co-Sign Detail Recorded Client Recorded Date Recorded By Document 01/04/18 08:25 DL [id number] 01/04/18 08:27 DL 01/04/18 08:25 Wound Center Nurse 1 [Ulcer Assessment] 2-left hallux -Current Size (cm) - Length 0.2 -Current Size (cm) - Width 0.2 -Current Size (cm) - Depth 0.4 -Total Square Cm 0.04 -Photo Taken No -Exudate Amt None Present (0 %) -Wound Margin Thickened -Granulation Amt None Present (0 %) -Necrosis Amt Small (1-33%) -Necrotic Tissue Type Adherent Slough -Structure Exposed N/A -Texture (Keila-wound Skin Appearance) Callus -Moisture (Keila-wound Skin Appearance No Abnormality ) -Color (Keila-wound Skin Appearance) No Abnormality -Temperature (Keila-wound Skin No Abnormality Appearance) (Pt Warm) -Tenderness on Palpation (Keila-wound No Skin Appearance) -Ulcer Cleansing Rinsed/ Irrigated with Saline -Foul Odor after Cleansing No -Anesthetic Used 4% Lidocaine Solution WC - Nurse 2 - General Ulcer CM Notes Start: 12/14/17 08:21 Freq: Status: Active Protocol: Activity Type Activity Date Activity User E-Sign Co-Sign Detail Recorded Client Recorded Date Recorded By Document 01/04/18 08:30 [id number] 01/04/18 08:31 01/04/18 08:30 Wound Center Nurse 2 [Procedure/Treatment] -Time 08:30 -Correct Patient Yes -Correct Side, Site, Position Yes -Correct Procedure Yes -Procedure Performed Yes -Type of Procedure Debridement -Clinical Debridement Subcutaneous -Post Debridement Size (cm) - Length 0.4 -Post Debridement Size (cm) - Width 0.2 -Post Debridement Size (cm) - Depth 0.2 -Total Square Cm 0.08 -Wound/Ulcer Outcome Not Healed -Ulcer Cleansing Not Cleansed -Foul Odor after Cleansing No -Bioengineered Tissue No -Bleeding Controlled with NA -Treatment Response Procedure Tolerated Well [See Physician Procedure note for Specifics] Pain Scale: 0-10 Numeric [Pain] -Is Patient Pain Free? Yes Musculoskeletal: - - No pain with manipulation of ulcer site Neurological: - - Epicritic sensation grossly absent to the lower extremity. Psych/Mental Status: Normal Affect, Appropriate Debridement Note Post-Debridement Measurements/Treatment WC - Nurse 2 - General Ulcer CM Notes Start: 12/14/17 08:21 Freq: Status: Active Protocol: Activity Type Activity Date Activity User E-Sign Co-Sign Detail Recorded Client Recorded Date Recorded By Document 12/14/17 09:04 [id number] 12/14/17 09:05 Document 12/21/17 08:28 [id number] 12/21/17 08:30 Document 12/28/17 08:28 [id number] 12/28/17 08:30 Document 01/04/18 08:30 [id number] 01/04/18 08:31 12/14/17 12/21/17 12/28/17 09:04 08:28 08:28 Wound Center Nurse 2 2-left hallux -Time 09:04 08:28 08:28 -Correct Patient Yes Yes Yes -Correct Side, Site, Position Yes Yes Yes -Correct Procedure Yes Yes Yes -Procedure Performed Yes Yes Yes -Type of Procedure Debridement Debridement Debridement -Clinical Debridement Subcutaneous Subcutaneous Subcutaneous -Post Debridement Size (cm) - Length 1.1 0.6 0.5 -Post Debridement Size (cm) - Width 0.3 0.2 0.3 -Post Debridement Size (cm) - Depth 0.2 0.2 0.2 -Total Square Cm 0.33 0.12 0.15 -Wound/Ulcer Outcome Not Healed Not Healed Not Healed -Ulcer Cleansing Not Cleansed Not Cleansed Not Cleansed -Foul Odor after Cleansing No No No -Bioengineered Tissue No No No -Bleeding Controlled with Pressure NA NA -Treatment Response Procedure Procedure Procedure Tolerated Well Tolerated Well Tolerated Well Pain Scale: 0-10 Numeric Is Patient Pain Free? Yes Yes Yes 01/04/18 08:30 Wound Center Nurse 2 2-left hallux -Time 08:30 -Correct Patient Yes -Correct Side, Site, Position Yes -Correct Procedure Yes -Procedure Performed Yes -Type of Procedure Debridement -Clinical Debridement Subcutaneous -Post Debridement Size (cm) - Length 0.4 -Post Debridement Size (cm) - Width 0.2 -Post Debridement Size (cm) - Depth 0.2 -Total Square Cm 0.08 -Wound/Ulcer Outcome Not Healed -Ulcer Cleansing Not Cleansed -Foul Odor after Cleansing No -Bioengineered Tissue No -Bleeding Controlled with NA -Treatment Response Procedure Tolerated Well Pain Scale: 0-10 Numeric Is Patient Pain Free? Yes Wound debrided: Left plantar medial hallux Laterality: Left Type of Debridement: Excisional debridement Anesthesia Used: 4% Lidocaine Solution Depth: in the subcutaneous layer Percentage of wound debrided: 100 Instrument Used: #15 blade Tissue Removed: Adherent slough, fibrin, hyperkeratotic tissue Severity: Fat Layer Exposed Amount of bleeding with debridement: Mild Bleeding Controlled with: Pressure Patient tolerated procedure well Assessment/Plan Assessment: Ulcer with fat layer exposed to left plantar medial hallux. DM 2 with neuropathy Plan: Patient was carefully examined and evaluated again today. Another subcutaneous debridement was performed as noted in the clinical panel. Once complete, the ulcer site was carefully cleansed with normal sterile saline, and then dressed with slightly moistened lluvia and a dry sterile dressing. The patient is to continue to change his dressing in this manner daily with the help of his . The importance of offloading the area was again stressed today. Patient says he has been wearing his new diabetic offloading shoes since he got them at all times while weight bearing. He does admit to only wearing house slippers in his house without any offloading, but admits that he tries to limit the amount hes on his feet at home. He was instructed to wear his shoes in the house as well until the area is healed up. He was instructed to try to stay off of his feet all together as much as possible. The patient is currently off work, and was instructed to stay off of his feet as much as possible, but was instructed to use the surgical shoe at all times if he absolutely had to be up on his feet. Order for 3 view x ray of the left foot were placed, and the results were reviewed with the patient at a prior visit. There were degenerative changes appreciated as well as bunion deformity, but there was no soft tissue emphysema or current signs of osteomyelitis appreciated. I also recommended nutritional supplementation with a high protein diet in order to optimize ulcer healing. I also discussed the importance of tight glycemic control with this patient. He says that he understands this. The patient was educated on all signs and symptoms of local and systemic infection, and was instructed to go to the emergency room immediately should he notice any of these. All in any other questions were answered to the patient's satisfaction. Patient will follow-up at the wound center in 1 week, or sooner if needed.
== END 2018-01-09 23:59 ==
LOC: WC 08:00
PROVIDERS: Family Provider Family Medicine; PCP Family Medicine; Visit Provider Podiatrist
DX: E11.621 Type 2 diabetes mellitus with foot ulcer (principal); E11.42 Type 2 diabetes mellitus with diabetic polyneuropathy; L97.522 Non-pressure chronic ulcer of other part of left foot with fat layer exposed; R60.0 Localized edema; L84 Corns and callosities
CPT/HCPCS: 11042

== ENCOUNTER 2018-02-01 08:00 | Outpatient (RCR) | payer BC, SELFPAY ==
[2018-01-10 00:59] VITALS: BP 144/92; PULSE 107; RESP 20; TEMP 36.4
[2018-01-11 08:20] VITALS: BP 164/89; PULSE 110; RESP 18; TEMP 36.7
--- NOTE | 2018-01-11 08:31 | PCM.WC.PN ---
(1) Chronic ulcer of left foot with fat layer exposed Status: Acute Current Visit: No Code(s): L97.522 - Non-pressure chronic ulcer of other part of left foot with fat layer exposed (2) Type 2 diabetes mellitus with diabetic polyneuropathy Status: Acute Current Visit: No Code(s): E11.42 - Type 2 diabetes mellitus with diabetic polyneuropathy (3) Delayed wound healing Status: Acute Current Visit: No Code(s): T14.8XXD - Other injury of unspecified body region, subsequent encounter (4) Edema, lower extremity Status: Acute Current Visit: No Code(s): R60.0 - Localized edema Type of Wound Date of Service: 01/11/18 Chief Complaint: non healing post op wound of perineum s/p debridement of large perirectal abscess History of Wound: This 51 year old diabetic male presents to wound center today for ulcer of his left medial plantar great toe. Patient states that he has been trying to lose weight and has been working out on the treadmill at [employer] He says after a while, he noticed some callus building up on his left great toe. He says the callus continued to grow but he did not think much of it. He showed his primary care physician who took some of the callus down and noticed a small ulcer. They tried to treat with keflex and local care, but it has not healed yet. Patient has since finished his keflex prescription and says he has been having daily dressing changes with the help of his , using neosporin and dressing. Patient denies any purulence or extending redness. He currently denies any feelings of nausea, vomiting, fever, or chills. Progress of Wound: Patient presents for follow up of ulcer to left great toe. Ulcer continues to show slow steady improvement again this week. Patient continues to wear offloading diabetic shoes when weight bearing. He denies any feelings of nausea, vomiting, fever, chills, or shortness of breath. - Physical Exam Vital Signs Temp Pulse Resp BP 98.0 F 110 H 18 164/89 H 01/11/18 08:20 01/11/18 08:20 01/11/18 08:20 01/11/18 08:20 General: Alert, Oriented x3, Cooperative, No apparent distress Extremities: Capillary Refill Less than 3 Seconds, No Calf Tenderness - Negative Suellen and Santiago sign, Edema - Slight lower extremity edema, Peripheral Pulses Normal - DP and PT pulses palpable Skin: Ulcer/ Wound - Ulcer to the left plantar medial hallux with fat layer exposed with measurements noted below. The base continues to be a mixture of adherent slough, fibrin, granular tissue. Slow improvement again noted. The base appears to have filled in a little better this week. Slight amount hyperkeratotic callus buildup around the ulcer periphery. There continues to be no purulence, no malodor, no sinus cellulitis, no increased warmth, no probing to bone, no tracking, and no undermining appreciated at this time Wound Measurements and Assessment WC - Nurse 1 - General Ulcer Measurement Start: 01/11/18 08:20 Freq: Status: Active Protocol: Activity Type Activity Date Activity User E-Sign Co-Sign Detail Recorded Client Recorded Date Recorded By Document 01/11/18 08:20 [id number] 01/11/18 08:22 01/11/18 08:20 Wound Center Nurse 1 [Ulcer Assessment] 2-left hallux -Combined with other wound No -Current Size (cm) - Length 0.6 -Current Size (cm) - Width 0.3 -Current Size (cm) - Depth 0.1 -Total Square Cm 0.18 -Photo Taken No -Epithelialization Small 1-33% -Tunneling No -Undermining/Tunneling No -Circular Undermining No -Classification - Thickness Full Thickness without Exposed Support Structure -Exudate Amt Small (1-33%) -Exudate Type Serosanguineous -Wound Margin Distinct, Outline Attached -Granulation Amt None Present (0 %) -Granulation Quality N/A -Slough/Fibrin Yes -Necrosis Amt Large (67-100%) -Necrotic Tissue Type Adherent Slough -Structure Exposed Fascia Fat Layer Exposed -Texture (Keila-wound Skin Appearance) Callus -Moisture (Keila-wound Skin Appearance Dry/Scaly ) -Color (Keila-wound Skin Appearance) No Abnormality Assessed -Temperature (Keila-wound Skin No Abnormality Appearance) (Pt Warm) -Tenderness on Palpation (Keila-wound No Skin Appearance) -Ulcer Cleansing Rinsed/ Irrigated with Saline -Foul Odor after Cleansing No -Anesthetic Used 4% Lidocaine Solution [Edema Assessment] -Lower Limb Edema Present Yes -Left Calf (cm) 48.5 -Left Ankle (cm) 27.0 WC - Nurse 2 - General Ulcer CM Notes Start: 01/11/18 08:20 Freq: Status: Active Protocol: Activity Type Activity Date Activity User E-Sign Co-Sign Detail Recorded Client Recorded Date Recorded By Document 01/11/18 08:27 [id number] 01/11/18 08:30 01/11/18 08:27 Wound Center Nurse 2 [Procedure/Treatment] 2-left hallux -Time 08:27 -Correct Patient Yes -Correct Side, Site, Position Yes -Correct Procedure Yes -Procedure Performed Yes -Type of Procedure Debridement -Clinical Debridement Subcutaneous -Post Debridement Size (cm) - Length 0.5 -Post Debridement Size (cm) - Width 0.2 -Post Debridement Size (cm) - Depth 0.1 -Total Square Cm 0.10 -Wound/Ulcer Outcome Not Healed -Ulcer Cleansing Not Cleansed -Foul Odor after Cleansing No -Bioengineered Tissue No -Bleeding Controlled with NA -Treatment Response Procedure Tolerated Well [See Physician Procedure note for Specifics] Pain Scale: 0-10 Numeric [Pain] -Is Patient Pain Free? Yes Musculoskeletal: - - No pain with manipulation of ulcer site Neurological: - - Epicritic sensation grossly absent to lower extremity Psych/Mental Status: Normal Affect, Appropriate Debridement Note Post-Debridement Measurements/Treatment - Nurse 2 - General Ulcer CM Notes Start: 01/11/18 08:20 Freq: Status: Active Protocol: Activity Type Activity Date Activity User E-Sign Co-Sign Detail Recorded Client Recorded Date Recorded By Document 01/11/18 08:27 [id number] 01/11/18 08:30 01/11/18 08:27 Wound Center Nurse 2 2-left hallux -Time 08:27 -Correct Patient Yes -Correct Side, Site, Position Yes -Correct Procedure Yes -Procedure Performed Yes -Type of Procedure Debridement -Clinical Debridement Subcutaneous -Post Debridement Size (cm) - Length 0.5 -Post Debridement Size (cm) - Width 0.2 -Post Debridement Size (cm) - Depth 0.1 -Total Square Cm 0.10 -Wound/Ulcer Outcome Not Healed -Ulcer Cleansing Not Cleansed -Foul Odor after Cleansing No -Bioengineered Tissue No -Bleeding Controlled with NA -Treatment Response Procedure Tolerated Well Pain Scale: 0-10 Numeric Is Patient Pain Free? Yes Wound debrided: Left plantar medial hallux Laterality: Left Type of Debridement: Excisional debridement Anesthesia Used: 4% Lidocaine Solution Depth: Down to and including healthy tissue, in the subcutaneous layer Percentage of wound debrided: 100 Instrument Used: #15 blade Tissue Removed: Adherent slough, fibrin, hyperkeratotic tissue Severity: Fat Layer Exposed Amount of bleeding with debridement: Mild Bleeding Controlled with: Pressure Patient tolerated procedure well Assessment/Plan Assessment: Ulcer with fat layer exposed to left plantar medial hallux. DM 2 with neuropathy Plan: Patient was carefully examined and evaluated again today. Another subcutaneous debridement was performed as noted in the clinical panel. Once complete, the ulcer site was carefully cleansed with normal sterile saline, and then dressed with slightly moistened lluvia and a dry sterile dressing. The patient is to continue to change his dressing in this manner daily with the help of his . The importance of offloading the area was again stressed today. Patient says he has been wearing his new diabetic offloading shoes since he got them at all times while weight bearing. He was instructed to wear his shoes in the house while trying to heal the ulcer site. He was instructed to try to stay off of his feet all together as much as possible. The patient is currently off work, and was instructed to stay off of his feet as much as possible, but was instructed to use the surgical shoe at all times if he absolutely had to be up on his feet. Order for 3 view x ray of the left foot were placed, and the results were reviewed with the patient at a prior visit. There were degenerative changes appreciated as well as bunion deformity, but there was no soft tissue emphysema or current signs of osteomyelitis appreciated. I also recommended nutritional supplementation with a high protein diet in order to optimize ulcer healing. I also discussed the importance of tight glycemic control with this patient. He says that he understands this. The patient was educated on all signs and symptoms of local and systemic infection, and was instructed to go to the emergency room immediately should he notice any of these. All in any other questions were answered to the patient's satisfaction. Patient will follow-up at the wound center in 1 week, or sooner if needed.
[2018-01-18 08:11] VITALS: BP 139/87; PULSE 92; RESP 20; TEMP 36.9
--- NOTE | 2018-01-18 09:43 | PCM.WC.PN ---
(1) Chronic ulcer of left foot with fat layer exposed Status: Acute Current Visit: No Code(s): L97.522 - Non-pressure chronic ulcer of other part of left foot with fat layer exposed (2) Type 2 diabetes mellitus with diabetic polyneuropathy Status: Acute Current Visit: No Code(s): E11.42 - Type 2 diabetes mellitus with diabetic polyneuropathy (3) Delayed wound healing Status: Acute Current Visit: No Code(s): T14.8XXD - Other injury of unspecified body region, subsequent encounter (4) Edema, lower extremity Status: Acute Current Visit: No Code(s): R60.0 - Localized edema Type of Wound Date of Service: 01/18/18 Chief Complaint: non healing post op wound of perineum s/p debridement of large perirectal abscess History of Wound: This 51 year old diabetic male presents to wound center today for ulcer of his left medial plantar great toe. Patient states that he has been trying to lose weight and has been working out on the treadmill at [employer]. He says after a while, he noticed some callus building up on his left great toe. He says the callus continued to grow but he did not think much of it. He showed his primary care physician who took some of the callus down and noticed a small ulcer. They tried to treat with keflex and local care, but it has not healed yet. Patient has since finished his keflex prescription and says he has been having daily dressing changes with the help of his , using neosporin and dressing. Patient denies any purulence or extending redness. He currently denies any feelings of nausea, vomiting, fever, or chills. Progress of Wound: Patient presents for follow up of ulcer to left great toe. Ulcer slightly bigger this week. Patient continues to wear offloading diabetic shoes when weight bearing. He denies any feelings of nausea, vomiting, fever, chills, or shortness of breath. - Physical Exam Vital Signs Temp Pulse Resp BP 98.5 F 92 20 H 139/87 H 01/18/18 08:11 01/18/18 08:11 01/18/18 08:11 01/18/18 08:11 General: Alert, Oriented x3, Cooperative, No apparent distress Extremities: Capillary Refill Less than 3 Seconds, No Calf Tenderness - Negative Suellen and Santiago sign, Edema - Slight lower extremity edema, Peripheral Pulses Normal - DP and PT pulses palpable Skin: Ulcer/ Wound - Ulcer to left plantar medial hallux with fat layer exposed with measurements noted below. There is a slight increase in ulcer size this week. The base continues to be a mixture of adherent slough, fibrin, granular tissue. Slight hyperkeratotic tissue around the ulcer periphery. There continues to be no purulence, no malodor, no extending cellulitis, no increase in warmth, no probing to bone, no tracking, no undermining appreciated at this time. Wound Measurements and Assessment WC - Nurse 1 - General Ulcer Measurement Start: 01/11/18 08:20 Freq: Status: Active Protocol: Activity Type Activity Date Activity User E-Sign Co-Sign Detail Recorded Client Recorded Date Recorded By Document 01/18/18 08:11 DL [id number] 01/18/18 08:16 DL 01/18/18 08:11 Wound Center Nurse 1 [Ulcer Assessment] 2-left hallux -Current Size (cm) - Length 0.2 -Current Size (cm) - Width 0.2 -Current Size (cm) - Depth 0.2 -Total Square Cm 0.04 -Photo Taken No -Maximum Distance #2 (cm) 0.2 -Circular Undermining Yes -Exudate Amt None Present (0 %) -Wound Margin Thickened -Granulation Amt None Present (0 %) -Necrosis Amt Large (67-100%) -Necrotic Tissue Type Adherent Slough -Structure Exposed N/A -Texture (Keila-wound Skin Appearance) Callus -Moisture (Keila-wound Skin Appearance Dry/Scaly ) -Color (Keila-wound Skin Appearance) No Abnormality -Temperature (Keila-wound Skin No Abnormality Appearance) (Pt Warm) -Ulcer Cleansing Rinsed/ Irrigated with Saline -Foul Odor after Cleansing No -Anesthetic Used 4% Lidocaine Solution WC - Nurse 2 - General Ulcer CM Notes Start: 01/11/18 08:20 Freq: Status: Active Protocol: Activity Type Activity Date Activity User E-Sign Co-Sign Detail Recorded Client Recorded Date Recorded By Document 01/18/18 08:23 [id number] 01/18/18 08:29 CS 01/18/18 08:23 Wound Center Nurse 2 [Procedure/Treatment] -Time 08:23 -Correct Patient Yes -Correct Side, Site, Position Yes -Correct Procedure Yes -Procedure Performed Yes -Type of Procedure Debridement -Clinical Debridement Subcutaneous -Post Debridement Size (cm) - Length 0.6 -Post Debridement Size (cm) - Width 0.4 -Post Debridement Size (cm) - Depth 0.1 -Total Square Cm 0.24 -Wound/Ulcer Outcome Not Healed -Ulcer Cleansing Not Cleansed -Foul Odor after Cleansing No -Bioengineered Tissue No -Bleeding Controlled with NA -Treatment Response Procedure Tolerated Well [See Physician Procedure note for Specifics] Pain Scale: 0-10 Numeric [Pain] -Is Patient Pain Free? Yes Musculoskeletal: - - No pain with manipulation of ulcer site Neurological: - - Epicritic sensation grossly absent to lower extremity Psych/Mental Status: Normal Affect, Appropriate Debridement Note Post-Debridement Measurements/Treatment WC - Nurse 2 - General Ulcer CM Notes Start: 01/11/18 08:20 Freq: Status: Active Protocol: Activity Type Activity Date Activity User E-Sign Co-Sign Detail Recorded Client Recorded Date Recorded By Document 01/11/18 08:27 [id number] 01/11/18 08:30 Document 01/18/18 08:23 [id number] 01/18/18 08:29 01/11/18 01/18/18 08:27 08:23 Wound Center Nurse 2 2-left hallux -Time 08:27 08:23 -Correct Patient Yes Yes -Correct Side, Site, Position Yes Yes -Correct Procedure Yes Yes -Procedure Performed Yes Yes -Type of Procedure Debridement Debridement -Clinical Debridement Subcutaneous Subcutaneous -Post Debridement Size (cm) - Length 0.5 0.6 -Post Debridement Size (cm) - Width 0.2 0.4 -Post Debridement Size (cm) - Depth 0.1 0.1 -Total Square Cm 0.10 0.24 -Wound/Ulcer Outcome Not Healed Not Healed -Ulcer Cleansing Not Cleansed Not Cleansed -Foul Odor after Cleansing No No -Bioengineered Tissue No No -Bleeding Controlled with NA NA -Treatment Response Procedure Procedure Tolerated Well Tolerated Well Pain Scale: 0-10 Numeric Is Patient Pain Free? Yes Yes Wound debrided: Left plantar medial hallux Laterality: Left Type of Debridement: Excisional debridement Anesthesia Used: 4% Lidocaine Solution Depth: in the subcutaneous layer Percentage of wound debrided: 100 Instrument Used: #15 blade Tissue Removed: Adherent slough, fibrin, hyperkeratotic tissue Severity: Fat Layer Exposed Amount of bleeding with debridement: Mild Bleeding Controlled with: Pressure Patient tolerated procedure well Assessment/Plan Assessment: Ulcer with fat layer exposed to left plantar medial hallux. DM 2 with neuropathy Plan: Patient was carefully examined and evaluated again today. Another subcutaneous debridement was performed as noted in the clinical panel. Ulcer slightly bigger this week. Once complete, the ulcer site was carefully cleansed with normal sterile saline, and then dressed with slightly moistened lluvia and a dry sterile dressing. The patient is to continue to change his dressing in this manner daily with the help of his . The importance of offloading the area was again stressed today. Patient says he has been wearing his new diabetic offloading shoes since he got them at all times while weight bearing. He was instructed to wear his shoes in the house while trying to heal the ulcer site. He was instructed to try to stay off of his feet all together as much as possible. The patient is currently off work, and was instructed to stay off of his feet as much as possible, but was instructed to use the surgical shoe at all times if he absolutely had to be up on his feet. Order for 3 view x ray of the left foot were placed, and the results were reviewed with the patient at a prior visit. There were degenerative changes appreciated as well as bunion deformity, but there was no soft tissue emphysema or current signs of osteomyelitis appreciated. I also recommended nutritional supplementation with a high protein diet in order to optimize ulcer healing. I also discussed the importance of tight glycemic control with this patient. He says that he understands this. The patient was educated on all signs and symptoms of local and systemic infection, and was instructed to go to the emergency room immediately should he notice any of these. All in any other questions were answered to the patient's satisfaction. Patient will follow-up at the wound center in 1 week, or sooner if needed.
[2018-01-25 08:10] VITALS: BP 160/99; PULSE 100; RESP 18; TEMP 37.1
--- NOTE | 2018-01-25 08:21 | PCM.WC.PN ---
(1) Chronic ulcer of left foot with fat layer exposed Status: Acute Current Visit: No Code(s): L97.522 - Non-pressure chronic ulcer of other part of left foot with fat layer exposed (2) Type 2 diabetes mellitus with diabetic polyneuropathy Status: Acute Current Visit: No Code(s): E11.42 - Type 2 diabetes mellitus with diabetic polyneuropathy (3) Delayed wound healing Status: Acute Current Visit: No Code(s): T14.8XXD - Other injury of unspecified body region, subsequent encounter (4) Edema, lower extremity Status: Acute Current Visit: No Code(s): R60.0 - Localized edema Type of Wound Date of Service: 01/25/18 History of Wound: This 51 year old diabetic male presents to wound center today for ulcer of his left medial plantar great toe. Patient states that he has been trying to lose weight and has been working out on the treadmill at [employer]. He says after a while, he noticed some callus building up on his left great toe. He says the callus continued to grow but he did not think much of it. He showed his primary care physician who took some of the callus down and noticed a small ulcer. They tried to treat with keflex and local care, but it has not healed yet. Patient has since finished his keflex prescription and says he has been having daily dressing changes with the help of his , using neosporin and dressing. Patient denies any purulence or extending redness. He currently denies any feelings of nausea, vomiting, fever, or chills. Progress of Wound: Patient presents for follow up of ulcer to left great toe. Significant improvement noted again this week. Patient continues to wear offloading diabetic shoes when weight bearing. He denies any feelings of nausea, vomiting, fever, chills, or shortness of breath. - Physical Exam Vital Signs Temp Pulse Resp BP 98.7 F 100 18 160/99 H 01/25/18 08:10 01/25/18 08:10 01/25/18 08:10 01/25/18 08:10 General: Alert, Oriented x3, Cooperative, No apparent distress Extremities: Capillary Refill Less than 3 Seconds, No Calf Tenderness, Edema - Negative Suellen and Santiago sign slight lower extremity edema, Peripheral Pulses Normal - DP and PT pulses palpable Skin: Ulcer/ Wound - Ulcer to left plantar medial hallux with fat layer exposed. Measurements are noted below. There is significant improvement again noted this week. The base is mostly granular tissue, some slight slough, as well as some slight surrounding hyperkeratotic tissue around the ulcer periphery. There continues to be no purulence, no malodor, no extending cellulitis, no increase in warmth, no probing to bone, no tracking, no undermining appreciated at this time. Wound Measurements and Assessment WC - Nurse 1 - General Ulcer Measurement Start: 01/11/18 08:20 Freq: Status: Active Protocol: Activity Type Activity Date Activity User E-Sign Co-Sign Detail Recorded Client Recorded Date Recorded By Document 01/25/18 08:10 [id number] 01/25/18 08:12 01/25/18 08:10 Wound Center Nurse 1 [Ulcer Assessment] 2-left hallux -Combined with other wound No -Current Size (cm) - Length 0.1 -Current Size (cm) - Width 0.1 -Current Size (cm) - Depth 0.1 -Total Square Cm 0.01 -Photo Taken No -Epithelialization Large 67-100% -Tunneling No -Undermining/Tunneling No -Circular Undermining No -Classification - Thickness Full Thickness without Exposed Support Structure -Exudate Amt None Present (0 %) -Wound Margin Distinct, Outline Attached -Granulation Amt Large (67-100%) -Granulation Quality [place] -Slough/Fibrin No -Necrosis Amt None Present (0 %) -Structure Exposed None/Limited to Skin Breakdown -Texture (Keila-wound Skin Appearance) Assessed Callus Scarring -Moisture (Keila-wound Skin Appearance Dry/Scaly ) -Color (Keila-wound Skin Appearance) Assessed -Temperature (Keila-wound Skin No Abnormality Appearance) (Pt Warm) -Tenderness on Palpation (Keila-wound No Skin Appearance) -Ulcer Cleansing Rinsed/ Irrigated with Saline -Foul Odor after Cleansing No -Anesthetic Used 5% Lidocaine Gel [Edema Assessment] -Lower Limb Edema Present No WC - Nurse 2 - General Ulcer CM Notes Start: 01/11/18 08:20 Freq: Status: Active Protocol: Activity Type Activity Date Activity User E-Sign Co-Sign Detail Recorded Client Recorded Date Recorded By Document 01/25/18 08:17 [id number] 01/25/18 08:19 01/25/18 08:17 Wound Center Nurse 2 [Procedure/Treatment] 2-left hallux -Time 08:17 -Correct Patient Yes -Correct Side, Site, Position Yes -Correct Procedure Yes -Procedure Performed Yes -Type of Procedure Debridement -Clinical Debridement Subcutaneous -Post Debridement Size (cm) - Length 0.2 -Post Debridement Size (cm) - Width 0.1 -Post Debridement Size (cm) - Depth 0.1 -Total Square Cm 0.02 -Wound/Ulcer Outcome Not Healed -Ulcer Cleansing Not Cleansed -Foul Odor after Cleansing No -Bioengineered Tissue No -Bleeding Controlled with NA -Treatment Response Procedure Tolerated Well [See Physician Procedure note for Specifics] Pain Scale: 0-10 Numeric [Pain] -Is Patient Pain Free? Yes Musculoskeletal: - - No pain with manipulation of ulcer site Neurological: - - Epicritic sensation grossly absent to lower extremity Psych/Mental Status: Normal Affect, Appropriate Debridement Note Post-Debridement Measurements/Treatment WC - Nurse 2 - General Ulcer CM Notes Start: 01/11/18 08:20 Freq: Status: Active Protocol: Activity Type Activity Date Activity User E-Sign Co-Sign Detail Recorded Client Recorded Date Recorded By Document 01/11/18 08:27 [id number] 01/11/18 08:30 CS Document 01/18/18 08:23 [id number] 01/18/18 08:29 CS Document 01/25/18 08:17 [id number] 01/25/18 08:19 CS 01/11/18 01/18/1818 08:27 08:23 08:17 Wound Center Nurse 2 2-left hallux -Time 08:27 08:23 08:17 -Correct Patient Yes Yes Yes -Correct Side, Site, Position Yes Yes Yes -Correct Procedure Yes Yes Yes -Procedure Performed Yes Yes Yes -Type of Procedure Debridement Debridement Debridement -Clinical Debridement Subcutaneous Subcutaneous Subcutaneous -Post Debridement Size (cm) - Length 0.5 0.6 0.2 -Post Debridement Size (cm) - Width 0.2 0.4 0.1 -Post Debridement Size (cm) - Depth 0.1 0.1 0.1 -Total Square Cm 0.10 0.24 0.02 -Wound/Ulcer Outcome Not Healed Not Healed Not Healed -Ulcer Cleansing Not Cleansed Not Cleansed Not Cleansed -Foul Odor after Cleansing No No No -Bioengineered Tissue No No No -Bleeding Controlled with NA NA NA -Treatment Response Procedure Procedure Procedure Tolerated Well Tolerated Well Tolerated Well Pain Scale: 0-10 Numeric Is Patient Pain Free? Yes Yes Yes Wound debrided: Left plantar medial hallux Laterality: Left Type of Debridement: Selective debridement Anesthesia Used: 4% Lidocaine Solution Depth: Down to and including healthy tissue Percentage of wound debrided: 100 Instrument Used: #15 blade Tissue Removed: Slough, hyperkeratotic tissue Severity: Limited To Skin Breakdown Amount of bleeding with debridement: Mild Bleeding Controlled with: Pressure Patient tolerated procedure well Assessment/Plan Assessment: Ulcer with fat layer exposed to left plantar medial hallux. DM 2 with neuropathy Plan: Patient was carefully examined and evaluated again today. A selective debridement was performed as noted in the clinical panel. Ulcer improved greatly over the last week. Once complete, the ulcer site was carefully cleansed with normal sterile saline, and then dressed with slightly moistened lluvia and a dry sterile dressing. The patient is to continue to change his dressing in this manner daily with the help of his . The importance of offloading the area was again stressed today. Patient says he has been wearing his new diabetic offloading shoes since he got them at all times while weight bearing. He was instructed to wear his shoes in the house while trying to heal the ulcer site. He was instructed to try to stay off of his feet all together as much as possible. The patient is currently off work, and was instructed to stay off of his feet as much as possible, but was instructed to use the surgical shoe at all times if he absolutely had to be up on his feet. Order for 3 view x ray of the left foot were placed, and the results were reviewed with the patient at a prior visit. There were degenerative changes appreciated as well as bunion deformity, but there was no soft tissue emphysema or current signs of osteomyelitis appreciated. I also recommended nutritional supplementation with a high protein diet in order to optimize ulcer healing. I also discussed the importance of tight glycemic control with this patient. He says that he understands this. The patient was educated on all signs and symptoms of local and systemic infection, and was instructed to go to the emergency room immediately should he notice any of these. All in any other questions were answered to the patient's satisfaction. Patient will follow-up at the wound center in 1 week, or sooner if needed.
[2018-02-01 08:04] VITALS: BP 172/96; PULSE 102; RESP 20; TEMP 37.3
--- NOTE | 2018-02-01 08:22 | PCM.WC.PN ---
(1) Chronic ulcer of left foot with fat layer exposed Status: Acute Current Visit: No Code(s): L97.522 - Non-pressure chronic ulcer of other part of left foot with fat layer exposed (2) Type 2 diabetes mellitus with diabetic polyneuropathy Status: Acute Current Visit: No Code(s): E11.42 - Type 2 diabetes mellitus with diabetic polyneuropathy (3) Delayed wound healing Status: Acute Current Visit: No Code(s): T14.8XXD - Other injury of unspecified body region, subsequent encounter (4) Edema, lower extremity Status: Acute Current Visit: No Code(s): R60.0 - Localized edema Type of Wound Date of Service: 02/01/18 Chief Complaint: non healing post op wound of perineum s/p debridement of large perirectal abscess History of Wound: This 51 year old diabetic male presents to wound center today for ulcer of his left medial plantar great toe. Patient states that he has been trying to lose weight and has been working out on the treadmill at [employer]. He says after a while, he noticed some callus building up on his left great toe. He says the callus continued to grow but he did not think much of it. He showed his primary care physician who took some of the callus down and noticed a small ulcer. They tried to treat with keflex and local care, but it has not healed yet. Patient has since finished his keflex prescription and says he has been having daily dressing changes with the help of his , using neosporin and dressing. Patient denies any purulence or extending redness. He currently denies any feelings of nausea, vomiting, fever, or chills. Progress of Wound: Patient is healed today. - Physical Exam Vital Signs Temp Pulse Resp BP 99.1 F 102 H 20 H 172/96 H 02/01/18 08:04 02/01/18 08:04 02/01/18 08:04 02/01/18 08:04 General: Alert, Oriented x3, Cooperative, No apparent distress Extremities: Capillary Refill Less than 3 Seconds, No Calf Tenderness, Edema, Peripheral Pulses Normal Skin: Ulcer/ Wound - left medial hallux ulcer is healed today without complications or any signs or symptoms of local bacterial infection. Wound Measurements and Assessment WC - Nurse 1 - General Ulcer Measurement Start: 01/11/18 08:20 Freq: Status: Active Protocol: Activity Type Activity Date Activity User E-Sign Co-Sign Detail Recorded Client Recorded Date Recorded By Document 02/01/18 08:04 TN [id number] 02/01/18 08:11 TN 02/01/18 08:04 Wound Center Nurse 1 [Ulcer Assessment] 2-left hallux -Combined with other wound No -Current Size (cm) - Length 0.1 -Current Size (cm) - Width 0.1 -Current Size (cm) - Depth 0.1 -Total Square Cm 0.01 -Date of Last Picture (Recall this 02/01/18 field) -Photo Taken Yes -Epithelialization Large 67-100% -Tunneling No -Undermining/Tunneling No -Circular Undermining No -Classification - Thickness Full Thickness without Exposed Support Structure -Change in Wound Grade/Stage No Query Text:If change please identify the Stage/Grade in the comment (ie. S2 G3) -Exudate Amt None Present (0 %) -Wound Margin Flat & Intact -Granulation Amt None Present (0 %) -Necrosis Amt None Present (0 %) -Structure Exposed N/A -Texture (Keila-wound Skin Appearance) No Abnormality Assessed -Moisture (Keila-wound Skin Appearance No Abnormality ) Assessed -Color (Keila-wound Skin Appearance) No Abnormality Assessed -Temperature (Keila-wound Skin No Abnormality Appearance) (Pt Warm) -Tenderness on Palpation (Keila-wound No Skin Appearance) -Ulcer Cleansing Not Cleansed -Foul Odor after Cleansing No [Edema Assessment] -Lower Limb Edema Present No WC - Nurse 2 - General Ulcer CM Notes Start: 01/11/18 08:20 Freq: Status: Active Protocol: Activity Type Activity Date Activity User E-Sign Co-Sign Detail Recorded Client Recorded Date Recorded By Document 02/01/18 08:18 [id number] 02/01/18 08:18 CS 02/01/18 08:18 Wound Center Nurse 2 [Procedure/Treatment] 2-left hallux -Time 08:18 -Correct Patient No -Correct Side, Site, Position No -Correct Procedure No -Procedure Performed No -Post Debridement Size (cm) - Length 0 -Post Debridement Size (cm) - Width 0 -Post Debridement Size (cm) - Depth 0 -Total Square Cm 0 -Wound/Ulcer Outcome Healed- Epithelialized [See Physician Procedure note for Specifics] Pain Scale: 0-10 Numeric [Pain] -Is Patient Pain Free? Yes Musculoskeletal: No Tenderness to Palpation of Joints or Extremities Neurological: - - epicritic sensation grossly absent to lower extremity Psych/Mental Status: Normal Affect, Appropriate Debridement Note Post-Debridement Measurements/Treatment WC - Nurse 2 - General Ulcer CM Notes Start: 01/11/18 08:20 Freq: Status: Active Protocol: Activity Type Activity Date Activity User E-Sign Co-Sign Detail Recorded Client Recorded Date Recorded By Document 01/11/18 08:27 [id number] 01/11/18 08:30 CS Document 01/18/18 08:23 CS [id number] 01/18/18 08:29 CS Document 01/25/18 08:17 CS [id number] 01/25/18 08:19 CS Document 01/25/18 08:23 CS [id number] 01/25/18 08:24 CS Document 02/01/18 08:18 CS [id number] 02/01/18 08:18 CS 01/11/18 01/18/18 01/25/18 08:27 08:23 08:17 Wound Center Nurse 2 2-left hallux -Time 08: 08:23 08:17 -Correct Patient Yes Yes Yes -Correct Side, Site, Position Yes Yes Yes -Correct Procedure Yes Yes Yes -Procedure Performed Yes Yes Yes -Type of Procedure Debridement Debridement Debridement -Clinical Debridement Subcutaneous Subcutaneous Subcutaneous -Post Debridement Size (cm) - Length 0.5 0.6 0.2 -Post Debridement Size (cm) - Width 0.2 0.4 0.1 -Post Debridement Size (cm) - Depth 0.1 0.1 0.1 -Total Square Cm 0.10 0.24 0.02 -Wound/Ulcer Outcome Not Healed Not Healed Not Healed -Ulcer Cleansing Not Cleansed Not Cleansed Not Cleansed -Foul Odor after Cleansing No No No -Bioengineered Tissue No No No -Bleeding Controlled with NA NA NA -Treatment Response Procedure Procedure Procedure Tolerated Well Tolerated Well Tolerated Well Pain Scale: 0-10 Numeric Is Patient Pain Free? Yes Yes Yes 01/25/18 02/01/18 08:23 08:18 Wound Center Nurse 2 2-left hallux -Time 08:15 08:18 -Correct Patient Yes No -Correct Side, Site, Position Yes No -Correct Procedure Yes No -Procedure Performed Yes No -Type of Procedure Debridement -Clinical Debridement Selective -Post Debridement Size (cm) - Length 0.2 0 -Post Debridement Size (cm) - Width 0.1 0 -Post Debridement Size (cm) - Depth 0.1 0 -Total Square Cm 0.02 0 -Wound/Ulcer Outcome Not Healed Healed- Epithelialized -Ulcer Cleansing Not Cleansed -Foul Odor after Cleansing No -Bioengineered Tissue No -Bleeding Controlled with NA -Treatment Response Procedure Tolerated Well Pain Scale: 0-10 Numeric Is Patient Pain Free? Yes No debridement was completed today Assessment/Plan Assessment: Ulcer with fat layer exposed to left plantar medial hallux. DM 2 with neuropathy Plan: Patient was carefully examined and evaluated again today. Ulcer to left medial hallux is healed today. The importance of continued offloading the area was again stressed today, even though the ulcer has healed. Patient says he has been wearing his new diabetic offloading shoes since he got them at all times while weight bearing. He was instructed to continue wear his shoes in the house while trying to heal the ulcer site. The patient is cleared to work. I also recommended continued nutritional supplementation with a high protein diet. Importance of tight glycemic control was discussed with this patient. He says that he understands this. The patient was educated on all signs and symptoms of local and systemic infection, and was instructed to go to the emergency room immediately should he notice any of these. All in any other questions were answered to the patient's satisfaction. Patient will will be discharged from the wound healing center at this time, but was instructed to follow back up or call with any issues, questions, or concerns.
== END 2018-02-09 23:59 ==
LOC: WC 08:00
PROVIDERS: Family Provider Family Medicine; PCP Family Medicine; Visit Provider Podiatrist
DX: E11.621 Type 2 diabetes mellitus with foot ulcer (principal); E11.42 Type 2 diabetes mellitus with diabetic polyneuropathy; L97.522 Non-pressure chronic ulcer of other part of left foot with fat layer exposed; R60.0 Localized edema; L84 Corns and callosities
CPT/HCPCS: 11042; 97597; 99211; G0463

== ENCOUNTER → 2018-04-06 10:09 | Outpatient (CLI) | payer BC, SELFPAY ==
[2018-04-06 12:05] LABS: Color, Urine Yellow (Yellow); Glucose, Dipstick 1000 mg/dl (Normal); Ketone-Dipstick Negative (Negative); Leukocyte Esterase-Dipstick 25 /ul (Negative); Nitrite-Dipstick Negative (Negative); Occult Blood-Urine Negative /ul (Negative); Protein-Dipstick 30 mg/dl (Negative); Specific Gravity, Urine 1.015 (1.002-1.030); Urine Bilirubin Dipstick Negative (Negative); Urine Clarity Clear (Clear); Urine Urobilinogen Normal (Normal)
[2018-04-06 12:34] LABS: Cholesterol 180 mg/dL (200); Glucose 101 mg/dL (74-106); High Density Lipoprotein 32 mg/dL; PSA,Total - Annual Screen 0.95 ng/mL (0.00-4.00); Triglycerides 309 mg/dL; Very Low Density Lipoprotein 62 mg/dL (5-40)
[2018-04-06 12:39] LABS: Hemoglobin A1c 5.9 % (4.2-6.3)
== END ==
PROVIDERS: Family Provider Family Medicine; PCP Family Medicine; Visit Provider Family Medicine
DX: E11.9 Type 2 diabetes mellitus without complications (principal); E78.5 Hyperlipidemia, unspecified; Z12.5 Encounter for screening for malignant neoplasm of prostate
CPT/HCPCS: 36415; 80061; 81002; 82947; 83036; 84153; G0103

== ENCOUNTER → 2018-06-13 18:55 | Outpatient (CLI) | payer BC, SELFPAY ==
[2018-06-13 22:02] LABS: M R Staph aureus DNA By PCR Negative (Negative); Probe Check PASS; Specimen Processing Control PASS; Staph aureus DNA By PCR NEGATIVE (Negative)
== END ==
PROVIDERS: Family Provider Family Medicine; PCP Family Medicine; Referring Provider Podiatrist; Visit Provider Podiatrist
DX: L97.512 Non-pressure chronic ulcer of other part of right foot with fat layer exposed (principal)
CPT/HCPCS: 87070; 87075; 87077; 87186; 87205; 87640

== ENCOUNTER 2018-07-12 08:00 | Outpatient (RCR) | payer BC, SELFPAY ==
[2018-06-21 10:19] VITALS: BP 140/87; PULSE 96; RESP 18; TEMP 36.7; BMI 51.7
--- NOTE | 2018-06-21 12:38 | PCM.WC.HP ---
(1) Ulcer of right foot with fat layer exposed Status: Acute Current Visit: Yes Code(s): L97.512 - Non-pressure chronic ulcer of other part of right foot with fat layer exposed (2) Type 2 diabetes mellitus with diabetic polyneuropathy Status: Acute Current Visit: No Code(s): E11.42 - Type 2 diabetes mellitus with diabetic polyneuropathy (3) Delayed wound healing Status: Acute Current Visit: No Code(s): T14.8XXD - Other injury of unspecified body region, subsequent encounter (4) Edema, lower extremity Status: Acute Current Visit: No Code(s): R60.0 - Localized edema History of Present Illness Chief Complaint: non healing post op wound of perineum s/p debridement of large perirectal abscess History of Wound: This 52 year old diabetic male presents to wound center today for ulcer of his right medial plantar great toe. Patient states that he has been trying to lose weight and has been working out on the treadmill at [employer]. He says this ulcer is in the same area on his left great toe this time that he had healed out earlier in the year on his right great toe. These were both caused the same way. He says after a while, he noticed some callus building up on his left great toe that eventually broke down into an ulcer. He was seen in my office last week and followed up at wound healing center today for continuation of care. Patient has been taking Augmentin as prescribed last week and applying daily cindi dressing changes with the help of his . Patient denies any purulence or extending redness. He currently denies any feelings of nausea, vomiting, fever, or chills. Past Medical History Past Medical History: Chronic Problems HTN (hypertension) (Chronic) Diabetes type 2, uncontrolled (Chronic) Gout (Chronic) Surgical History: - - previous I&D's in his perineal area and right inguinal area because of infection. The right inguinal infection was drained in 2005. Allergies/Adverse Reactions: Allergies No Known Allergies Allergy (Verified 01/15/15 12:24) Home Medications: Ambulatory Orders Medication Instructions Recorded Allopurinol [Zyloprim] 300 mg PO DAILYCM 04/26/13 Metformin HCl [Glucophage] 1,000 mg PO BIDCM 04/26/13 Multivitamins,Therapeutic 1 tablet PO DAILY 04/26/13 [Multivitamin] [place]-3/Dha/Epa/Fish Oil [Fish Oil 1,200 mg PO BID 04/26/13 Dr 500 mg Softgel] Cinnamon 2,000 mg PO DAILY 11/09/14 Aspirin [Aspirin, Baby] 81 mg PO DAILY@0800 11/02/17 Empagliflozin [Jardiance] 25 mg PO DAILY 11/02/17 Glimepiride [Amaryl] 4 mg PO DAILY 11/02/17 Insulin Detemir [Levemir (BKC)] 50 units SC QHS 11/02/17 - Family History Maternal No pertinent history Paternal Renal Disease Smoking Status: Never smoker Review of Systems Constitutional: Denies: Chills, Fever, Weight Change Respiratory: Denies: Cough, Shortness of Breath Gastrointestinal: Denies: Diarrhea, Nausea, Vomiting Skin: Reports: - - ulcer to right great toe - Physical Exam Vital Signs Temp Pulse Resp BP 98.0 F 96 18 140/87 H 06/21/18 10:19 06/21/18 10:19 06/21/18 10:19 06/21/18 10:19 General: Alert, Oriented x3, Cooperative, No apparent distress Extremities: No cyanosis, Capillary Refill Less than 3 Seconds, No Calf Tenderness - Negative Suellen and Santiago sign, Edema - Bilateral lower extremity edema, Peripheral Pulses Normal - DP and PT pulses palpable Skin: Ulcer/ Wound - Ulcer to right plantar medial hallux with fat layer exposed. Measurements noted below. The base is mixture of adherent slough, fibrin, granular tissue, biofilm, and surrounding hyperkeratotic tissue. There is no purulence, no malodor, no streaking cellulitis, no significant increase in warmth, no probing to bone, no tracking, and no undermining appreciated at this time. Wound Measurements and Assessment WC - Nurse 1 - General Ulcer Measurement Start: 06/21/18 10:17 Freq: Status: Active Protocol: Activity Type Activity Date Activity User E-Sign Co-Sign Detail Recorded Client Recorded Date Recorded By Document 06/21/18 10:19 RI [id number] 06/21/18 10:36 RI 06/21/18 10:19 Wound Center Nurse 1 [Ulcer Assessment] #3 Right Big Toe -Combined with other wound No -Current Size (cm) - Length 0.7 -Current Size (cm) - Width 0.5 -Current Size (cm) - Depth 0.2 -Total Square Cm 0.35 -Date of Last Picture (Recall this 06/21/18 field) -Photo Taken Yes -Epithelialization Small 1-33% -Tunneling No -Undermining/Tunneling No -Undermining/Tunneling Starts (O' 6 clock) -Undermining/Tunneling Ends (O'clock) 9 -Exudate Amt Small -Exudate Type Serosanguineous -Wound Margin Thickened & Rolled Under -Granulation Amt Small (1-33%) -Granulation Quality Pale [place]osh -Necrosis Amt Large (67-100%) -Necrotic Tissue Type Adherent Slough -Texture (Keila-wound Skin Appearance) Assessed Scarring -Moisture (Keila-wound Skin Appearance Assessed ) Maceration -Color (Keila-wound Skin Appearance) Assessed -Temperature (Keila-wound Skin No Abnormality Appearance) (Pt Warm) -Tenderness on Palpation (Keila-wound No Skin Appearance) -Ulcer Cleansing Rinsed/ Irrigated with Saline -Foul Odor after Cleansing No -Anesthetic Used 5% Lidocaine Gel [Edema Assessment] -Right Calf (cm) 52.5 -Right Ankle (cm) 28 WC - Nurse 2 - General Ulcer CM Notes Start: 06/21/18 10:17 Freq: Status: Active Protocol: Activity Type Activity Date Activity User E-Sign Co-Sign Detail Recorded Client Recorded Date Recorded By Document 06/21/18 10:59 DV [id number] 06/21/18 11:02 DV 06/21/18 10:59 Wound Center Nurse 2 [Procedure/Treatment] #3 Right Big Toe -Time 11:00 -Correct Patient Yes -Correct Side, Site, Position Yes -Correct Procedure Yes -Procedure Performed Yes -Type of Procedure Debridement -Clinical Debridement Subcutaneous -Post Debridement Size (cm) - Length 0.7 -Post Debridement Size (cm) - Width 0.6 -Post Debridement Size (cm) - Depth 0.2 -Total Square Cm 0.42 -Wound/Ulcer Outcome Not Healed -Ulcer Cleansing Rinsed/ Irrigated with Saline -Foul Odor after Cleansing No -Bioengineered Tissue No -Bleeding Controlled with Pressure -Offloading No -Type of Offloading Surgical Shoe -Treatment Response Procedure Tolerated Well [See Physician Procedure note for Specifics] Musculoskeletal: - - No pain with manipulation of ulcer site Neurological: - - Epicritic sensation grossly absent lower extremity Psych/Mental Status: Normal Affect, Appropriate Debridement Note Post-Debridement Measurements/Treatment WC - Nurse 2 - General Ulcer CM Notes Start: 06/21/18 10:17 Freq: Status: Active Protocol: Activity Type Activity Date Activity User E-Sign Co-Sign Detail Recorded Client Recorded Date Recorded By Document 06/21/18 10:59 DV [id number] 06/21/18 11:02 DV 06/21/18 10:59 Wound Center Nurse 2 #3 Right Big Toe -Time 11:00 -Correct Patient Yes -Correct Side, Site, Position Yes -Correct Procedure Yes -Procedure Performed Yes -Type of Procedure Debridement -Clinical Debridement Subcutaneous -Post Debridement Size (cm) - Length 0.7 -Post Debridement Size (cm) - Width 0.6 -Post Debridement Size (cm) - Depth 0.2 -Total Square Cm 0.42 -Wound/Ulcer Outcome Not Healed -Ulcer Cleansing Rinsed/ Irrigated with Saline -Foul Odor after Cleansing No -Bioengineered Tissue No -Bleeding Controlled with Pressure -Offloading No -Type of Offloading Surgical Shoe -Treatment Response Procedure Tolerated Well Wound debrided: Right plantar medial hallux Laterality: Right Type of Debridement: Excisional debridement Anesthesia Used: 4% Lidocaine Solution Depth: in the subcutaneous layer Percentage of wound debrided: 100 Instrument Used: #15 blade, - - Tissue nipper Tissue Removed: Adherent slough, fibrin, biofilm, hyperkeratotic tissue Severity: Fat Layer Exposed Amount of bleeding with debridement: Mild Bleeding Controlled with: Pressure Patient tolerated procedure well Assessment/Plan Active Problems Ulcer of right foot with fat layer exposed (Acute) Assessment: Ulcer with fat layer exposed to right plantar medial hallux. DM 2 with neuropathy Plan: Patient was carefully examined and evaluated again today after developing a new ulcer to the right hallux in the same area he had on the left hallux last year. Ulcer site was debrided subcutaneously as noted in the clinical panel today. Once complete, the ulcer site was carefully cleansed and then dressed with a slightly moistened Cindi followed by dry sterile dressing. Patient's dressing is to be changed in this manner on a daily basis with the help of his . Dressing supplies were ordered for the patient. The patient is to continue with offloading surgical shoe with a dual density insert with offloaded area to right hallux. Patient is continuing to wear his offloading diabetic shoe on the opposite foot. Patient was instructed to keep the offloading surgical shoe on at all times while weightbearing and to do his best to keep as much pressure and weight off his foot as he can while it continues to heal. A prescription was sent with the patient for clindamycin. He is to take this as instructed until complete. I also recommended diet high in protein to help optimize ulcer healing potential. The importance of tight glycemic control was again discussed with this patient. The patient was educated on all signs and symptoms of local and systemic infection, and he was instructed to go to the emergency room immediately should he notice any these. All questions were answered to the patient's satisfaction. The patient will follow up at the wound healing center in 1 week to check on progress, or sooner if needed.
--- NOTE | 2018-06-21 12:42 | HP.PCM_ITS ---
(1) Ulcer of right foot with fat layer exposed Status: Acute Current Visit: Yes Code(s): L97.512 - Non-pressure chronic ulcer of other part of right foot with fat layer exposed (2) Type 2 diabetes mellitus with diabetic polyneuropathy Status: Acute Current Visit: No Code(s): E11.42 - Type 2 diabetes mellitus with diabetic polyneuropathy (3) Delayed wound healing Status: Acute Current Visit: No Code(s): T14.8XXD - Other injury of unspecified body region, subsequent encounter (4) Edema, lower extremity Status: Acute Current Visit: No Code(s): R60.0 - Localized edema History of Present Illness Chief Complaint: non healing post op wound of perineum s/p debridement of large perirectal abscess History of Wound: This 52 year old diabetic male presents to wound center today for ulcer of his right medial plantar great toe. Patient states that he has been trying to lose weight and has been working out on the treadmill at [employer]. He says this ulcer is in the same area on his left great toe this time that he had healed out earlier in the year on his right great toe. These were both caused the same way. He says after a while, he noticed some callus building up on his left great toe that eventually broke down into an ulcer. He was seen in my office last week and followed up at wound healing center today for continuation of care. Patient has been taking Augmentin as prescribed last week and applying daily cindi dressing changes with the help of his . Patient denies any purulence or extending redness. He currently denies any feelings of nausea, vomiting, fever, or chills. Past Medical History Past Medical History: Chronic Problems HTN (hypertension) (Chronic) Diabetes type 2, uncontrolled (Chronic) Gout (Chronic) Surgical History: - - previous I&D's in his perineal area and right inguinal area because of infection. The right inguinal infection was drained in 2005. Allergies/Adverse Reactions: Allergies No Known Allergies Allergy (Verified 01/15/15 12:24) Home Medications: Ambulatory Orders Medication Instructions Recorded Allopurinol [Zyloprim] 300 mg PO DAILYCM 04/26/13 Metformin HCl [Glucophage] 1,000 mg PO BIDCM 04/26/13 Multivitamins,Therapeutic 1 tablet PO DAILY 04/26/13 [Multivitamin] [place]-3/Dha/Epa/Fish Oil [Fish Oil 1,200 mg PO BID 04/26/13 Dr 500 mg Softgel] Cinnamon 2,000 mg PO DAILY 11/09/14 Aspirin [Aspirin, Baby] 81 mg PO DAILY@0800 11/02/17 Empagliflozin [Jardiance] 25 mg PO DAILY 11/02/17 Glimepiride [Amaryl] 4 mg PO DAILY 11/02/17 Insulin Detemir [Levemir (BKC)] 50 units SC QHS 11/02/17 - Family History Maternal No pertinent history Paternal Renal Disease Smoking Status: Never smoker Review of Systems Constitutional: Denies: Chills, Fever, Weight Change Respiratory: Denies: Cough, Shortness of Breath Gastrointestinal: Denies: Diarrhea, Nausea, Vomiting Skin: Reports: - - ulcer to right great toe - Physical Exam Vital Signs Temp Pulse Resp BP 98.0 F 96 18 140/87 H 06/21/18 10:19 06/21/18 10:19 06/21/18 10:19 06/21/18 10:19 General: Alert, Oriented x3, Cooperative, No apparent distress Extremities: No cyanosis, Capillary Refill Less than 3 Seconds, No Calf Tenderness - Negative Suellen and Santiago sign, Edema - Bilateral lower extremity edema, Peripheral Pulses Normal - DP and PT pulses palpable Skin: Ulcer/ Wound - Ulcer to right plantar medial hallux with fat layer exposed. Measurements noted below. The base is mixture of adherent slough, fibrin, granular tissue, biofilm, and surrounding hyperkeratotic tissue. There is no purulence, no malodor, no streaking cellulitis, no significant increase in warmth, no probing to bone, no tracking, and no undermining appreciated at this time. Wound Measurements and Assessment WC - Nurse 1 - General Ulcer Measurement Start: 06/21/18 10:17 Freq: Status: Active Protocol: Activity Type Activity Date Activity User E-Sign Co-Sign Detail Recorded Client Recorded Date Recorded By Document 06/21/18 10:19 HI [id number] 06/21/18 10:36 HI 06/21/18 10:19 Wound Center Nurse 1 [Ulcer Assessment] #3 Right Big Toe -Combined with other wound No -Current Size (cm) - Length 0.7 -Current Size (cm) - Width 0.5 -Current Size (cm) - Depth 0.2 -Total Square Cm 0.35 -Date of Last Picture (Recall this 06/21/18 field) -Photo Taken Yes -Epithelialization Small 1-33% -Tunneling No -Undermining/Tunneling No -Undermining/Tunneling Starts (O' 6 clock) -Undermining/Tunneling Ends (O'clock) 9 -Exudate Amt Small -Exudate Type Serosanguineous -Wound Margin Thickened & Rolled Under -Granulation Amt Small (1-33%) -Granulation Quality Pale [place] -Necrosis Amt Large (67-100%) -Necrotic Tissue Type Adherent Slough -Texture (Keila-wound Skin Appearance) Assessed Scarring -Moisture (Keila-wound Skin Appearance Assessed ) Maceration -Color (Keila-wound Skin Appearance) Assessed -Temperature (Keila-wound Skin No Abnormality Appearance) (Pt Warm) -Tenderness on Palpation (Keila-wound No Skin Appearance) -Ulcer Cleansing Rinsed/ Irrigated with Saline -Foul Odor after Cleansing No -Anesthetic Used 5% Lidocaine Gel [Edema Assessment] -Right Calf (cm) 52.5 -Right Ankle (cm) 28 WC - Nurse 2 - General Ulcer CM Notes Start: 06/21/18 10:17 Freq: Status: Active Protocol: Activity Type Activity Date Activity User E-Sign Co-Sign Detail Recorded Client Recorded Date Recorded By Document 06/21/18 10:59 DV [id number] 06/21/18 11:02 DV 06/21/18 10:59 Wound Center Nurse 2 [Procedure/Treatment] #3 Right Big Toe -Time 11:00 -Correct Patient Yes -Correct Side, Site, Position Yes -Correct Procedure Yes -Procedure Performed Yes -Type of Procedure Debridement -Clinical Debridement Subcutaneous -Post Debridement Size (cm) - Length 0.7 -Post Debridement Size (cm) - Width 0.6 -Post Debridement Size (cm) - Depth 0.2 -Total Square Cm 0.42 -Wound/Ulcer Outcome Not Healed -Ulcer Cleansing Rinsed/ Irrigated with Saline -Foul Odor after Cleansing No -Bioengineered Tissue No -Bleeding Controlled with Pressure -Offloading No -Type of Offloading Surgical Shoe -Treatment Response Procedure Tolerated Well [See Physician Procedure note for Specifics] Musculoskeletal: - - No pain with manipulation of ulcer site Neurological: - - Epicritic sensation grossly absent lower extremity Psych/Mental Status: Normal Affect, Appropriate Debridement Note Post-Debridement Measurements/Treatment WC - Nurse 2 - General Ulcer CM Notes Start: 06/21/18 10:17 Freq: Status: Active Protocol: Activity Type Activity Date Activity User E-Sign Co-Sign Detail Recorded Client Recorded Date Recorded By Document 06/21/18 10:59 DV [id number] 06/21/18 11:02 DV 06/21/18 10:59 Wound Center Nurse 2 #3 Right Big Toe -Time 11:00 -Correct Patient Yes -Correct Side, Site, Position Yes -Correct Procedure Yes -Procedure Performed Yes -Type of Procedure Debridement -Clinical Debridement Subcutaneous -Post Debridement Size (cm) - Length 0.7 -Post Debridement Size (cm) - Width 0.6 -Post Debridement Size (cm) - Depth 0.2 -Total Square Cm 0.42 -Wound/Ulcer Outcome Not Healed -Ulcer Cleansing Rinsed/ Irrigated with Saline -Foul Odor after Cleansing No -Bioengineered Tissue No -Bleeding Controlled with Pressure -Offloading No -Type of Offloading Surgical Shoe -Treatment Response Procedure Tolerated Well Wound debrided: Right plantar medial hallux Laterality: Right Type of Debridement: Excisional debridement Anesthesia Used: 4% Lidocaine Solution Depth: in the subcutaneous layer Percentage of wound debrided: 100 Instrument Used: #15 blade, - - Tissue nipper Tissue Removed: Adherent slough, fibrin, biofilm, hyperkeratotic tissue Severity: Fat Layer Exposed Amount of bleeding with debridement: Mild Bleeding Controlled with: Pressure Patient tolerated procedure well Assessment/Plan Active Problems Ulcer of right foot with fat layer exposed (Acute) Assessment: Ulcer with fat layer exposed to right plantar medial hallux. DM 2 with neuropathy Plan: Patient was carefully examined and evaluated again today after developing a new ulcer to the right hallux in the same area he had on the left hallux last year. Ulcer site was debrided subcutaneously as noted in the clinical panel today. Once complete, the ulcer site was carefully cleansed and then dressed with a slightly moistened Cindi followed by dry sterile dressing. Patient's dressing is to be changed in this manner on a daily basis with the help of his . Dressing supplies were ordered for the patient. The patient is to [facility] with offloading surgical shoe with a dual density insert with offloaded area to right hallux. Patient is continuing to wear his offloading diabetic shoe on the opposite foot. Patient was instructed to keep the offloading surgical shoe on at all times while weightbearing and to do his best to keep as much pressure and weight off his foot as he can while it continues to heal. A prescription was sent with the patient for clindamycin. He is to take this as instructed until complete. I also recommended diet high in protein to help optimize ulcer healing potential. The importance of tight glycemic control was again discussed with this patient. The patient was educated on all signs and symptoms of local and systemic infection, and he was instructed to go to the emergency room immediately should he notice any these. All questions were answered to the patient's satisfaction. The patient will follow up at the wound healing center in 1 week to check on progress, or sooner if needed.
[2018-06-28 08:03] VITALS: BP 153/85; PULSE 104; RESP 104; TEMP 36.7; BMI 51.7
--- NOTE | 2018-06-28 08:30 | PN.PCM_ITS ---
(1) Ulcer of right foot with fat layer exposed Status: Acute Current Visit: Yes Code(s): L97.512 - Non-pressure chronic ulcer of other part of right foot with fat layer exposed (2) Type 2 diabetes mellitus with diabetic polyneuropathy Status: Acute Current Visit: No Code(s): E11.42 - Type 2 diabetes mellitus with diabetic polyneuropathy (3) Delayed wound healing Status: Acute Current Visit: No Code(s): T14.8XXD - Other injury of unspecified body region, subsequent encounter (4) Edema, lower extremity Status: Acute Current Visit: No Code(s): R60.0 - Localized edema Type of Wound Chief Complaint: ulcer right hallux History of Wound: This 52 year old diabetic male presents to wound center today for ulcer of his right medial plantar great toe. Patient states that he has been trying to lose weight and has been working out on the treadmill at [employer]. He says this ulcer is in the same area on his left great toe this time that he had healed out earlier in the year on his right great toe. These were both caused the same way. He says after a while, he noticed some callus building up on his left great toe that eventually broke down into an ulcer. He was seen in my office last week and followed up at wound healing center today for continuation of care. Patient has been taking Augmentin as prescribed last week and applying daily cindi dressing changes with the help of his . Patient denies any purulence or extending redness. He currently denies any feelings of nausea, vomiting, fever, or chills. Progress of Wound: Ulcer shows slow improvement this week. Has been having daily cindi dressing changes with help of . Keeps area offloaded with offloading surgical shoe. Denies fellings of nausea, vomiting, fever, or chills. - Physical Exam Vital Signs Temp Pulse Resp BP 98.0 F 104 H 104 H 153/85 H 06/28/18 08:03 06/28/18 08:03 06/28/18 08:03 06/28/18 08:03 General: Alert, Oriented x3, Cooperative, No apparent distress Extremities: No cyanosis, Capillary Refill Less than 3 Seconds, No Calf Tenderness - Negative Suellen and Santiago sign, Edema - Bilateral lower extremity edema, Peripheral Pulses Normal - DP and PT pulses palpable bilateral Skin: Ulcer/ Wound - Ulcer to right plantar medial hallux with fat layer exposed. Measurements noted below. Slight improvement noted today. The base is a mixture of adherent slough, erratic tissue, granular tissue, biofilm, as well as some surrounding hyperkeratotic tissue. There continues to be no purulence, no malodor, no streaking cellulitis, no increase in warmth, no probing to bone, no tracking, and no undermining. Wound Measurements and Assessment WC - Nurse 1 - General Ulcer Measurement Start: 06/21/18 10:17 Freq: Status: Active Protocol: Activity Type Activity Date Activity User E-Sign Co-Sign Detail Recorded Client Recorded Date Recorded By Document 06/28/18 08:03 [id number] 06/28/18 08:09 CS 06/28/18 08:03 Wound Center Nurse 1 [Ulcer Assessment] #3 Right Big Toe -Combined with other wound No -Current Size (cm) - Length 0.6 -Current Size (cm) - Width 0.7 -Current Size (cm) - Depth 0.1 -Total Square Cm 0.42 -Photo Taken No -Epithelialization None Present -Tunneling No -Undermining/Tunneling No -Circular Undermining No -Exudate Amt None Present -Wound Margin Distinct, Outline Attached -Granulation Amt Large (67-100%) -Granulation Quality Red -Necrosis Amt Large (67-100%) -Necrotic Tissue Type Adherent Slough -Structure Exposed None/Limited to Skin Breakdown -Texture (Keila-wound Skin Appearance) Callus -Moisture (Keila-wound Skin Appearance No Abnormality ) Assessed -Color (Keila-wound Skin Appearance) No Abnormality Assessed -Temperature (Keila-wound Skin No Abnormality Appearance) (Pt Warm) -Tenderness on Palpation (Keila-wound Yes Skin Appearance) -Ulcer Cleansing Rinsed/ Irrigated with Saline -Foul Odor after Cleansing No -Anesthetic Used 4% Lidocaine Solution [Edema Assessment] -Lower Limb Edema Present NA - Nurse 2 - General Ulcer CM Notes Start: 06/21/18 10:17 Freq: Status: Active Protocol: Activity Type Activity Date Activity User E-Sign Co-Sign Detail Recorded Client Recorded Date Recorded By Document 06/28/18 08:23 DV [id number] 06/28/18 08:25 DV 06/28/18 08:23 Wound Center Nurse 2 [Procedure/Treatment] #3 Right Big Toe -Time 08:24 -Correct Patient Yes -Correct Side, Site, Position Yes -Correct Procedure Yes -Procedure Performed Yes -Type of Procedure Debridement -Clinical Debridement Subcutaneous -Post Debridement Size (cm) - Length 0.6 -Post Debridement Size (cm) - Width 0.5 -Post Debridement Size (cm) - Depth 0.2 -Total Square Cm 0.30 -Wound/Ulcer Outcome Not Healed -Ulcer Cleansing Rinsed/ Irrigated with Saline -Foul Odor after Cleansing No -Bioengineered Tissue No -Bleeding Controlled with Pressure -Offloading No -Type of Offloading Surgical Shoe -Treatment Response Procedure Tolerated Well [See Physician Procedure note for Specifics] Pain Scale: 0-10 Numeric [Pain] -Is Patient Pain Free? Yes Musculoskeletal: - - No pain with manipulation of ulcer site Neurological: - - Epicritic sensation grossly absent to lower extremity Psych/Mental Status: Normal Affect, Appropriate Debridement Note Post-Debridement Measurements/Treatment WC - Nurse 2 - General Ulcer CM Notes Start: 06/21/18 10:17 Freq: Status: Active Protocol: Activity Type Activity Date Activity User E-Sign Co-Sign Detail Recorded Client Recorded Date Recorded By Document 06/21/18 10:59 DV [id number] 06/21/18 11:02 DV Document 06/28/18 08:23 DV [id number] 06/28/18 08:25 DV 06/21/18 06/28/18 10:59 08:23 Wound Center Nurse 2 #3 Right Big Toe -Time 11:00 08:24 -Correct Patient Yes Yes -Correct Side, Site, Position Yes Yes -Correct Procedure Yes Yes -Procedure Performed Yes Yes -Type of Procedure Debridement Debridement -Clinical Debridement Subcutaneous Subcutaneous -Post Debridement Size (cm) - Length 0.7 0.6 -Post Debridement Size (cm) - Width 0.6 0.5 -Post Debridement Size (cm) - Depth 0.2 0.2 -Total Square Cm 0.42 0.30 -Wound/Ulcer Outcome Not Healed Not Healed -Ulcer Cleansing Rinsed/ Rinsed/ Irrigated with Irrigated with Saline Saline -Foul Odor after Cleansing No No -Bioengineered Tissue No No -Bleeding Controlled with Pressure Pressure -Offloading No No -Type of Offloading Surgical Shoe Surgical Shoe -Treatment Response Procedure Procedure Tolerated Well Tolerated Well Pain Scale: 0-10 Numeric Is Patient Pain Free? Yes Wound debrided: Right plantar medial hallux Laterality: Right Type of Debridement: Excisional debridement Anesthesia Used: 4% Lidocaine Solution Depth: in the subcutaneous layer Percentage of wound debrided: 100 Instrument Used: #15 blade, - - Tissue nipper Tissue Removed: Adherent slough, fibrotic tissue, biofilm, hyperkeratotic tissue Severity: Fat Layer Exposed Amount of bleeding with debridement: Mild Bleeding Controlled with: Pressure Patient tolerated procedure well Assessment/Plan Active Problems Ulcer of right foot with fat layer exposed (Acute) Assessment: Ulcer with fat layer exposed to right plantar medial hallux. DM 2 with neuropathy Plan: Patient was carefully examined and evaluated again today for ulcer to the right hallux. Ulcer site was debrided subcutaneously as noted in the clinical panel again today. Once complete, the ulcer site was carefully cleansed and then dressed with a slightly moistened Cindi followed by dry sterile dressing. Patient's dressing is to be changed in this manner on a daily basis with the help of his . The patient is to continue with offloading surgical shoe with a dual density insert with offloaded area for right hallux. Patient is continuing to wear his offloading diabetic shoe on the opposite foot. Patient was instructed to keep the offloading surgical shoe on at all times while weightbearing and to do his best to keep as much pressure and weight off his foot as he can while it continues to heal. Patient doing well with clindamycin and has 3 days left. He is to take this as instructed until complete. I also recommended diet high in protein to help optimize ulcer healing potential. The importance of tight glycemic control was again discussed with this patient. The patient was educated on all signs and symptoms of local and systemic infection, and he was instructed to go to the emergency room immediately should he notice any these. All questions were answered to the patient's satisfaction. The patient will follow up at the wound healing center in 1 week to check on progress, or sooner if needed.
[2018-07-05 08:10] VITALS: BP 153/79; PULSE 88; RESP 16; TEMP 36.4; BMI 51.7
--- NOTE | 2018-07-05 08:33 | PCM.WC.PN ---
(1) Ulcer of right foot with fat layer exposed Status: Acute Current Visit: Yes Code(s): L97.512 - Non-pressure chronic ulcer of other part of right foot with fat layer exposed (2) Type 2 diabetes mellitus with diabetic polyneuropathy Status: Acute Current Visit: No Code(s): E11.42 - Type 2 diabetes mellitus with diabetic polyneuropathy (3) Delayed wound healing Status: Acute Current Visit: No Code(s): T14.8XXD - Other injury of unspecified body region, subsequent encounter (4) Edema, lower extremity Status: Acute Current Visit: No Code(s): R60.0 - Localized edema Type of Wound Chief Complaint: ulcer right hallux History of Wound: This 52 year old diabetic male presents to wound center today for ulcer of his right medial plantar great toe. Patient states that he has been trying to lose weight and has been working out on the treadmill at [employer]. He says this ulcer is in the same area on his left great toe this time that he had healed out earlier in the year on his right great toe. These were both caused the same way. He says after a while, he noticed some callus building up on his left great toe that eventually broke down into an ulcer. He was seen in my office last week and followed up at wound healing center today for continuation of care. Patient has been taking Augmentin as prescribed last week and applying daily cindi dressing changes with the help of his . Patient denies any purulence or extending redness. He currently denies any feelings of nausea, vomiting, fever, or chills. Progress of Wound: Slight improvement again this week. Has been having daily cindi dressing changes with help of . Keeps area offloaded with offloading surgical shoe. Denies fellings of nausea, vomiting, fever, or chills. - Physical Exam Vital Signs Temp Pulse Resp BP 97.6 F L 88 16 153/79 H 07/05/18 08:10 07/05/18 08:10 07/05/18 08:10 07/05/18 08:10 General: Alert, Oriented x3, Cooperative, No apparent distress Extremities: Capillary Refill Less than 3 Seconds, No Calf Tenderness, Edema - Negative Suellen and Santiago sign bilateral lower extremity edema, Peripheral Pulses Normal - DP and PT pulses palpable bilateral Skin: Ulcer/ Wound - Ulcer to right plantar medial hallux with fat layer exposed. Measurements noted below. Slight improvement noted again today. The base is a mixture of adherent slough, fibrotic tissue, granular tissue, biofilm, as well as some surrounding hyperkeratotic tissue. There continues to be no purulence, no malodor, no streaking cellulitis, no increase in warmth, no probing to bone, no tracking, and no undermining. Wound Measurements and Assessment WC - Nurse 1 - General Ulcer Measurement Start: 06/21/18 10:17 Freq: Status: Active Protocol: Activity Type Activity Date Activity User E-Sign Co-Sign Detail Recorded Client Recorded Date Recorded By Document 07/05/18 08:10 CS [id number] 07/05/18 08:14 CS 07/05/18 08:10 Wound Center Nurse 1 [Ulcer Assessment] #3 Right Big Toe -Combined with other wound No -Current Size (cm) - Length 0.7 -Current Size (cm) - Width 0.5 -Current Size (cm) - Depth 0.2 -Total Square Cm 0.35 -Photo Taken No -Epithelialization None Present -Tunneling No -Undermining/Tunneling No -Circular Undermining No -Exudate Amt None Present -Wound Margin Distinct, Outline Attached -Granulation Amt Large (67-100%) -Granulation Quality Red -Slough/Fibrin Yes -Necrosis Amt None Present (0 %) -Necrotic Tissue Type Adherent Slough -Structure Exposed None/Limited to Skin Breakdown -Texture (Keila-wound Skin Appearance) Callus -Moisture (Keila-wound Skin Appearance No Abnormality ) Assessed -Color (Keila-wound Skin Appearance) No Abnormality Assessed -Temperature (Keila-wound Skin No Abnormality Appearance) (Pt Warm) -Tenderness on Palpation (Keila-wound No Skin Appearance) -Ulcer Cleansing Rinsed/ Irrigated with Saline -Foul Odor after Cleansing No -Anesthetic Used 4% Lidocaine Solution [Edema Assessment] -Lower Limb Edema Present NA Musculoskeletal: - - No pain with manipulation of ulcer site Neurological: - - Epicritic sensation grossly absent lower extremity Psych/Mental Status: Normal Affect, Appropriate Debridement Note Post-Debridement Measurements/Treatment WC - Nurse 2 - General Ulcer CM Notes Start: 06/21/18 10:17 Freq: Status: Active Protocol: Activity Type Activity Date Activity User E-Sign Co-Sign Detail Recorded Client Recorded Date Recorded By Document 01/10/19 10:59 DV [id number] 06/21/18 11:02 DV Document 06/28/18 08:23 DV [id number] 06/28/18 08:25 DV 06/21/18 06/28/18 10:59 08:23 Wound Center Nurse 2 #3 Right Big Toe -Time 11:00 08:24 -Correct Patient Yes Yes -Correct Side, Site, Position Yes Yes -Correct Procedure Yes Yes -Procedure Performed Yes Yes -Type of Procedure Debridement Debridement -Clinical Debridement Subcutaneous Subcutaneous -Post Debridement Size (cm) - Length 0.7 0.6 -Post Debridement Size (cm) - Width 0.6 0.5 -Post Debridement Size (cm) - Depth 0.2 0.2 -Total Square Cm 0.42 0.30 -Wound/Ulcer Outcome Not Healed Not Healed -Ulcer Cleansing Rinsed/ Rinsed/ Irrigated with Irrigated with Saline Saline -Foul Odor after Cleansing No No -Bioengineered Tissue No No -Bleeding Controlled with Pressure Pressure -Offloading No No -Type of Offloading Surgical Shoe Surgical Shoe -Treatment Response Procedure Procedure Tolerated Well Tolerated Well Pain Scale: 0-10 Numeric Is Patient Pain Free? Yes Wound debrided: Right plantar medial hallux Laterality: Right Type of Debridement: Excisional debridement Anesthesia Used: 4% Lidocaine Solution Depth: in the subcutaneous layer Percentage of wound debrided: 100 Instrument Used: #15 blade, - - Tissue nipper Tissue Removed: Adherent slough, fibrotic tissue, biofilm, hyperkeratotic tissue Severity: Fat Layer Exposed Amount of bleeding with debridement: Mild Bleeding Controlled with: Pressure Patient tolerated procedure well Assessment/Plan Active Problems Ulcer of right foot with fat layer exposed (Acute) Assessment: Ulcer with fat layer exposed to right plantar medial hallux. DM 2 with neuropathy Plan: Patient was carefully examined and evaluated again today for ulcer to the right hallux. Ulcer site was debrided subcutaneously as noted in the clinical panel again today. Once complete, the ulcer site was carefully cleansed and then dressed with a slightly moistened Cindi followed by dry sterile dressing. Patient's dressing is to be changed in this manner daily with the help of his . The patient is to continue with offloading surgical shoe with a dual density insert with offloaded area for right hallux. Patient was also instructed to try and focus pressure to his heel and away from the forefoot/great toe while walking. Patient is continuing to wear his offloading diabetic shoe on the opposite foot. Patient was instructed to keep the offloading surgical shoe on at all times while weightbearing and to do his best to keep as much pressure and weight off his foot as he can while it continues to heal. I also recommended diet high in protein to help optimize ulcer healing potential. The importance of tight glycemic control was again discussed with this patient. The patient was educated on all signs and symptoms of local and systemic infection, and he was instructed to go to the emergency room immediately should he notice any these. All questions were answered to the patient's satisfaction. The patient will follow up at the wound healing center in 1 week to check on progress, or sooner if needed.
[2018-07-12 07:54] VITALS: BP 152/87; PULSE 86; RESP 18; TEMP 36.6; BMI 51.7
--- NOTE | 2018-07-12 08:12 | PCM.WC.PN ---
(1) Ulcer of right foot with fat layer exposed Status: Acute Current Visit: Yes Code(s): L97.512 - Non-pressure chronic ulcer of other part of right foot with fat layer exposed (2) Type 2 diabetes mellitus with diabetic polyneuropathy Status: Acute Current Visit: No Code(s): E11.42 - Type 2 diabetes mellitus with diabetic polyneuropathy (3) Delayed wound healing Status: Acute Current Visit: No Code(s): T14.8XXD - Other injury of unspecified body region, subsequent encounter (4) Edema, lower extremity Status: Acute Current Visit: No Code(s): R60.0 - Localized edema Type of Wound Chief Complaint: ulcer right hallux History of Wound: This 52 year old diabetic male presents to wound center today for ulcer of his right medial plantar great toe. Patient states that he has been trying to lose weight and has been working out on the treadmill at [employer]. He says this ulcer is in the same area on his left great toe this time that he had healed out earlier in the year on his right great toe. These were both caused the same way. He says after a while, he noticed some callus building up on his left great toe that eventually broke down into an ulcer. He was seen in my office last week and followed up at wound healing center today for continuation of care. Patient has been taking Augmentin as prescribed last week and applying daily lluvia dressing changes with the help of his . Patient denies any purulence or extending redness. He currently denies any feelings of nausea, vomiting, fever, or chills. Progress of Wound: Slight improvement again this week. Has been having daily lluvia dressing changes with help of . Keeps area offloaded with offloading surgical shoe. Says he has been doing best to sit with foot elevated as much as possible. Denies fellings of nausea, vomiting, fever, or chills. - Physical Exam Vital Signs Temp Pulse Resp BP 97.8 F 86 18 152/87 H 07/12/18 07:54 07/12/18 07:54 07/12/18 07:54 07/12/18 07:54 General: Alert, Oriented x3, Cooperative, No apparent distress Extremities: Capillary Refill Less than 3 Seconds, No Calf Tenderness - Negative Suellen and Santiago sign, Edema - Bilateral lower extremity edema, Peripheral Pulses Normal - DP and PT pulses palpable bilateral Skin: Ulcer/ Wound - Ulcer to right plantar medial hallux with fat layer exposed. Measurements noted below. The base continues to be a mixture of adherent slough, fibrotic tissue, granular tissue, biofilm, as well as some surrounding hyperkeratotic tissue. There continues to be no purulence, no malodor, no streaking cellulitis, no increase in warmth, no probing to bone, no tracking, and no undermining. Wound Measurements and Assessment WC - Nurse 1 - General Ulcer Measurement Start: 06/21/18 10:17 Freq: Status: Active Protocol: Activity Type Activity Date Activity User E-Sign Co-Sign Detail Recorded Client Recorded Date Recorded By Document 07/12/18 07:54 DL [id number] 07/12/18 08:00 DL 07/12/18 07:54 Wound Center Nurse 1 [Ulcer Assessment] #3 Right Big Toe -Current Size (cm) - Length 0.6 -Current Size (cm) - Width 0.5 -Current Size (cm) - Depth 0.2 -Total Square Cm 0.30 -Photo Taken No -Maximum Distance #2 (cm) 0.2 -Circular Undermining Yes -Exudate Amt None Present -Wound Margin Thickened -Granulation Amt Small (1-33%) -Granulation Quality [place] -Necrosis Amt Small (1-33%) -Necrotic Tissue Type Adherent Slough -Structure Exposed N/A -Texture (Keila-wound Skin Appearance) Callus -Moisture (Keila-wound Skin Appearance No Abnormality ) -Color (Keila-wound Skin Appearance) Rubor -Temperature (Keila-wound Skin No Abnormality Appearance) (Pt Warm) -Tenderness on Palpation (Keila-wound No Skin Appearance) -Ulcer Cleansing Rinsed/ Irrigated with Saline -Foul Odor after Cleansing No -Anesthetic Used 5% Lidocaine Gel WC - Nurse 2 - General Ulcer CM Notes Start: 06/21/18 10:17 Freq: Status: Active Protocol: Activity Type Activity Date Activity User E-Sign Co-Sign Detail Recorded Client Recorded Date Recorded By Document 07/12/18 08:06 TALIB [id number] 07/12/18 08:09 TALIB 07/12/18 08:06 Wound Center Nurse 2 [Procedure/Treatment] -Time 08:06 -Correct Patient Yes -Correct Side, Site, Position Yes -Correct Procedure Yes -Procedure Performed Yes -Type of Procedure Debridement -Clinical Debridement Subcutaneous -Post Debridement Size (cm) - Length 0.6 -Post Debridement Size (cm) - Width 0.4 -Post Debridement Size (cm) - Depth 0.2 -Total Square Cm 0.24 -Wound/Ulcer Outcome Not Healed -Ulcer Cleansing Rinsed/ Irrigated with Saline -Foul Odor after Cleansing No -Bioengineered Tissue No -Bleeding Controlled with Pressure -Offloading Yes -Type of Offloading Surgical Shoe -Treatment Response Procedure Tolerated Well [See Physician Procedure note for Specifics] Pain Scale: 0-10 Numeric [Pain] -Is Patient Pain Free? Yes Musculoskeletal: - - No pain with manipulation of ulcer site Neurological: - - Epicritic sensation grossly absent lower extremity Psych/Mental Status: Normal Affect, Appropriate Debridement Note Post-Debridement Measurements/Treatment WC - Nurse 2 - General Ulcer CM Notes Start: 06/21/18 10:17 Freq: Status: Active Protocol: Activity Type Activity Date Activity User E-Sign Co-Sign Detail Recorded Client Recorded Date Recorded By Document 06/21/18 10:59 DV [id number] 06/21/18 11:02 DV Document 06/28/18 08:23 DV [id number] 06/28/18 08:25 DV Document 07/05/18 08:33 [id number] 07/05/18 08:35 DV Document 07/12/18 08:06 [id number] 07/12/18 08:09 06/21/18 06/28/18 07/05/18 10:59 08:23 08:33 Wound Center Nurse 2 #3 Right Big Toe -Time 11:00 08:24 08:33 -Correct Patient Yes Yes Yes -Correct Side, Site, Position Yes Yes Yes -Correct Procedure Yes Yes Yes -Procedure Performed Yes Yes Yes -Type of Procedure Debridement Debridement Debridement -Clinical Debridement Subcutaneous Subcutaneous Subcutaneous -Post Debridement Size (cm) - Length 0.7 0.6 0.5 -Post Debridement Size (cm) - Width 0.6 0.5 0.5 -Post Debridement Size (cm) - Depth 0.2 0.2 0.2 -Total Square Cm 0.42 0.30 0.25 -Wound/Ulcer Outcome Not Healed Not Healed Not Healed -Ulcer Cleansing Rinsed/ Rinsed/ Rinsed/ Irrigated with Irrigated with Irrigated with Saline Saline Saline -Foul Odor after Cleansing No No No -Bioengineered Tissue No No No -Bleeding Controlled with Pressure Pressure Pressure -Offloading No No Yes -Type of Offloading Surgical Shoe Surgical Shoe Surgical Shoe -Treatment Response Procedure Procedure Procedure Tolerated Well Tolerated Well Tolerated Well Pain Scale: 0-10 Numeric Is Patient Pain Free? Yes Yes 07/12/18 08:06 Wound Center Nurse 2 #3 Right Big Toe -Time 08:06 -Correct Patient Yes -Correct Side, Site, Position Yes -Correct Procedure Yes -Procedure Performed Yes -Type of Procedure Debridement -Clinical Debridement Subcutaneous -Post Debridement Size (cm) - Length 0.6 -Post Debridement Size (cm) - Width 0.4 -Post Debridement Size (cm) - Depth 0.2 -Total Square Cm 0.24 -Wound/Ulcer Outcome Not Healed -Ulcer Cleansing Rinsed/ Irrigated with Saline -Foul Odor after Cleansing No -Bioengineered Tissue No -Bleeding Controlled with Pressure -Offloading Yes -Type of Offloading Surgical Shoe -Treatment Response Procedure Tolerated Well Pain Scale: 0-10 Numeric Is Patient Pain Free? Yes Wound debrided: Right plantar medial hallux Laterality: Right Type of Debridement: Excisional debridement Anesthesia Used: 4% Lidocaine Solution Depth: in the subcutaneous layer Percentage of wound debrided: 100 Instrument Used: #15 blade Tissue Removed: Adherent slough, fibrotic tissue, biofilm, hyperkeratotic tissue Severity: Fat Layer Exposed Amount of bleeding with debridement: Mild Bleeding Controlled with: Pressure Patient tolerated procedure well Assessment/Plan Active Problems Ulcer of right foot with fat layer exposed (Acute) Assessment: Ulcer with fat layer exposed to right plantar medial hallux. DM 2 with neuropathy Plan: Patient was carefully examined and evaluated again today for ulcer to the right hallux. Ulcer site was debrided subcutaneously as noted in the clinical panel again today. Once complete, the ulcer site was carefully cleansed and then dressed with a slightly moistened Lluvia followed by dry sterile dressing. Patient's dressing is to be changed in this manner daily with the help of his . The patient is to continue with offloading surgical shoe with a dual density insert with offloaded area for right hallux. Patient was also instructed to try and focus pressure to his heel and away from the forefoot/great toe while walking. Patient is continuing to wear his offloading diabetic shoe on the opposite foot. Patient was instructed to keep the offloading surgical shoe on at all times while weightbearing and to do his best to keep as much pressure and weight off his foot as he can while it continues to heal. I also recommended diet high in protein to help optimize ulcer healing potential. The importance of tight glycemic control was again discussed with this patient. Patient says he is currently on weight watchers diet trying to lose weight to take pressure off of his feet as well. The patient was educated on all signs and symptoms of local and systemic infection, and he was instructed to go to the emergency room immediately should he notice any these. All questions were answered to the patient's satisfaction. The patient will follow up at the wound healing center in 1 week to check on progress, or sooner if needed.
--- NOTE | 2018-07-12 08:17 | PN.PCM_ITS ---
(1) Ulcer of right foot with fat layer exposed Status: Acute Current Visit: Yes Code(s): L97.512 - Non-pressure chronic ulcer of other part of right foot with fat layer exposed (2) Type 2 diabetes mellitus with diabetic polyneuropathy Status: Acute Current Visit: No Code(s): E11.42 - Type 2 diabetes mellitus with diabetic polyneuropathy (3) Delayed wound healing Status: Acute Current Visit: No Code(s): T14.8XXD - Other injury of unspecified body region, subsequent encounter (4) Edema, lower extremity Status: Acute Current Visit: No Code(s): R60.0 - Localized edema Type of Wound Chief Complaint: ulcer right hallux History of Wound: This 52 year old diabetic male presents to wound center today for ulcer of his right medial plantar great toe. Patient states that he has been trying to lose weight and has been working out on the treadmill at [employer]. He says this ulcer is in the same area on his left great toe this time that he had healed out earlier in the year on his right great toe. These were both caused the same way. He says after a while, he noticed some callus building up on his left great toe that eventually broke down into an ulcer. He was seen in my office last week and followed up at wound healing center today for continuation of care. Patient has been taking Augmentin as prescribed last week and applying daily lluvia dressing changes with the help of his . Patient denies any purulence or extending redness. He currently denies any feelings of nausea, vomiting, fever, or chills. Progress of Wound: Slight improvement again this week. Has been having daily lluvia dressing changes with help of . Keeps area offloaded with offloading surgical shoe. Says he has been doing best to sit with foot elevated as much as possible. Denies fellings of nausea, vomiting, fever, or chills. - Physical Exam Vital Signs Temp Pulse Resp BP 97.8 F 86 18 152/87 H 07/12/18 07:54 07/12/18 07:54 07/12/18 07:54 07/12/18 07:54 General: Alert, Oriented x3, Cooperative, No apparent distress Extremities: Capillary Refill Less than 3 Seconds, No Calf Tenderness - Negative Suellen and Santiago sign, Edema - Bilateral lower extremity edema, Peripheral Pulses Normal - DP and PT pulses palpable bilateral Skin: Ulcer/ Wound - Ulcer to right plantar medial hallux with fat layer exposed. Measurements noted below. The base continues to be a mixture of adherent slough, fibrotic tissue, granular tissue, biofilm, as well as some surrounding hyperkeratotic tissue. There continues to be no purulence, no malodor, no streaking cellulitis, no increase in warmth, no probing to bone, no tracking, and no undermining. Wound Measurements and Assessment WC - Nurse 1 - General Ulcer Measurement Start: 06/21/18 10:17 Freq: Status: Active Protocol: Activity Type Activity Date Activity User E-Sign Co-Sign Detail Recorded Client Recorded Date Recorded By Document 07/12/18 07:54 DL [id number] 07/12/18 08:00 DL 07/12/18 07:54 Wound Center Nurse 1 [Ulcer Assessment] #3 Right Big Toe -Current Size (cm) - Length 0.6 -Current Size (cm) - Width 0.5 -Current Size (cm) - Depth 0.2 -Total Square Cm 0.30 -Photo Taken No -Maximum Distance #2 (cm) 0.2 -Circular Undermining Yes -Exudate Amt None Present -Wound Margin Thickened -Granulation Amt Small (1-33%) -Granulation Quality [place] -Necrosis Amt Small (1-33%) -Necrotic Tissue Type Adherent Slough -Structure Exposed N/A -Texture (Keila-wound Skin Appearance) Callus -Moisture (Keila-wound Skin Appearance No Abnormality ) -Color (Keila-wound Skin Appearance) Rubor -Temperature (Keila-wound Skin No Abnormality Appearance) (Pt Warm) -Tenderness on Palpation (Keila-wound No Skin Appearance) -Ulcer Cleansing Rinsed/ Irrigated with Saline -Foul Odor after Cleansing No -Anesthetic Used 5% Lidocaine Gel WC - Nurse 2 - General Ulcer CM Notes Start: 06/21/18 10:17 Freq: Status: Active Protocol: Activity Type Activity Date Activity User E-Sign Co-Sign Detail Recorded Client Recorded Date Recorded By Document 07/12/18 08:06 TALIB [id number] 07/12/18 08:09 TALIB 07/12/18 08:06 Wound Center Nurse 2 [Procedure/Treatment] -Time 08:06 -Correct Patient Yes -Correct Side, Site, Position Yes -Correct Procedure Yes -Procedure Performed Yes -Type of Procedure Debridement -Clinical Debridement Subcutaneous -Post Debridement Size (cm) - Length 0.6 -Post Debridement Size (cm) - Width 0.4 -Post Debridement Size (cm) - Depth 0.2 -Total Square Cm 0.24 -Wound/Ulcer Outcome Not Healed -Ulcer Cleansing Rinsed/ Irrigated with Saline -Foul Odor after Cleansing No -Bioengineered Tissue No -Bleeding Controlled with Pressure -Offloading Yes -Type of Offloading Surgical Shoe -Treatment Response Procedure Tolerated Well [See Physician Procedure note for Specifics] Pain Scale: 0-10 Numeric [Pain] -Is Patient Pain Free? Yes Musculoskeletal: - - No pain with manipulation of ulcer site Neurological: - - Epicritic sensation grossly absent lower extremity Psych/Mental Status: Normal Affect, Appropriate Debridement Note Post-Debridement Measurements/Treatment WC - Nurse 2 - General Ulcer CM Notes Start: 06/21/18 10:17 Freq: Status: Active Protocol: Activity Type Activity Date Activity User E-Sign Co-Sign Detail Recorded Client Recorded Date Recorded By Document 06/21/18 10:59 DV [id number] 06/21/18 11:02 DV Document 06/28/18 08:23 DV [id number] 06/28/18 08:25 DV Document 07/05/18 08:33 [id number] 07/05/18 08:35 DV Document 07/12/18 08:06 [id number] 07/12/18 08:09 06/21/18 06/28/18 07/05/18 10:59 08:23 08:33 Wound Center Nurse 2 #3 Right Big Toe -Time 11:00 08:24 08:33 -Correct Patient Yes Yes Yes -Correct Side, Site, Position Yes Yes Yes -Correct Procedure Yes Yes Yes -Procedure Performed Yes Yes Yes -Type of Procedure Debridement Debridement Debridement -Clinical Debridement Subcutaneous Subcutaneous Subcutaneous -Post Debridement Size (cm) - Length 0.7 0.6 0.5 -Post Debridement Size (cm) - Width 0.6 0.5 0.5 -Post Debridement Size (cm) - Depth 0.2 0.2 0.2 -Total Square Cm 0.42 0.30 0.25 -Wound/Ulcer Outcome Not Healed Not Healed Not Healed -Ulcer Cleansing Rinsed/ Rinsed/ Rinsed/ Irrigated with Irrigated with Irrigated with Saline Saline Saline -Foul Odor after Cleansing No No No -Bioengineered Tissue No No No -Bleeding Controlled with Pressure Pressure Pressure -Offloading No No Yes -Type of Offloading Surgical Shoe Surgical Shoe Surgical Shoe -Treatment Response Procedure Procedure Procedure Tolerated Well Tolerated Well Tolerated Well Pain Scale: 0-10 Numeric Is Patient Pain Free? Yes Yes 07/12/18 08:06 Wound Center Nurse 2 #3 Right Big Toe -Time 08:06 -Correct Patient Yes -Correct Side, Site, Position Yes -Correct Procedure Yes -Procedure Performed Yes -Type of Procedure Debridement -Clinical Debridement Subcutaneous -Post Debridement Size (cm) - Length 0.6 -Post Debridement Size (cm) - Width 0.4 -Post Debridement Size (cm) - Depth 0.2 -Total Square Cm 0.24 -Wound/Ulcer Outcome Not Healed -Ulcer Cleansing Rinsed/ Irrigated with Saline -Foul Odor after Cleansing No -Bioengineered Tissue No -Bleeding Controlled with Pressure -Offloading Yes -Type of Offloading Surgical Shoe -Treatment Response Procedure Tolerated Well Pain Scale: 0-10 Numeric Is Patient Pain Free? Yes Wound debrided: Right plantar medial hallux Laterality: Right Type of Debridement: Excisional debridement Anesthesia Used: 4% Lidocaine Solution Depth: in the subcutaneous layer Percentage of wound debrided: 100 Instrument Used: #15 blade Tissue Removed: Adherent slough, fibrotic tissue, biofilm, hyperkeratotic tissue Severity: Fat Layer Exposed Amount of bleeding with debridement: Mild Bleeding Controlled with: Pressure Patient tolerated procedure well Assessment/Plan Active Problems Ulcer of right foot with fat layer exposed (Acute) Assessment: Ulcer with fat layer exposed to right plantar medial hallux. DM 2 with neuropathy Plan: Patient was carefully examined and evaluated again today for ulcer to the right hallux. Ulcer site was debrided subcutaneously as noted in the clinical panel again today. Once complete, the ulcer site was carefully cleansed and then dressed with a slightly moistened Lluvia followed by dry sterile dressing. Patient's dressing is to be changed in this manner daily with the help of his . The patient is to continue with offloading surgical shoe with a dual density insert with offloaded area for right hallux. Patient was also instructed to try and focus pressure to his heel and away from the forefoot/great toe while walking. Patient is continuing to wear his offloading diabetic shoe on the opposite foot. Patient was instructed to keep the offloading surgical shoe on at all times while weightbearing and to do his best to keep as much pressure and weight off his foot as he can while it continues to heal. I also recommended diet high in protein to help optimize ulcer healing potential. The importance of tight glycemic control was again discussed with this patient. Patient says he is currently on weight watchers diet trying to lose weight to take pressure off of his feet as well. The patient was educated on all signs and symptoms of local and systemic infection, and he was instructed to go to the emergency room immediately should he notice any these. All questions were answered to the patient's satisfaction. The patient will follow up at the wound healing center in 1 week to check on progress, or sooner if needed.
== END 2018-07-12 23:59 ==
LOC: WC 08:00
PROVIDERS: Family Provider Family Medicine; PCP Family Medicine; Visit Provider Podiatrist
DX: E11.621 Type 2 diabetes mellitus with foot ulcer (principal); E11.42 Type 2 diabetes mellitus with diabetic polyneuropathy; L97.512 Non-pressure chronic ulcer of other part of right foot with fat layer exposed; R60.0 Localized edema; K61.1 Rectal abscess; E11.65 Type 2 diabetes mellitus with hyperglycemia; I10 Essential (primary) hypertension; M10.9 Gout, unspecified; Z79.4 Long term (current) use of insulin; Z79.899 Other long term (current) drug therapy; Z79.82 Long term (current) use of aspirin
CPT/HCPCS: 11042; 99213; G0463

== ENCOUNTER 2018-08-09 08:00 | Outpatient (RCR) | payer BC, SELFPAY ==
[2018-07-13 01:36] VITALS: BP 152/87; PULSE 86; RESP 18; TEMP 36.6
[2018-07-19 08:16] VITALS: BP 151/85; PULSE 87; RESP 18; TEMP 36.6; BMI 51.7
--- NOTE | 2018-07-19 08:19 | PN.PCM_ITS ---
(1) Ulcer of right foot with fat layer exposed Status: Acute Current Visit: No Code(s): L97.512 - Non-pressure chronic ulcer of other part of right foot with fat layer exposed (2) Type 2 diabetes mellitus with diabetic polyneuropathy Status: Acute Current Visit: No Code(s): E11.42 - Type 2 diabetes mellitus with diabetic polyneuropathy (3) Delayed wound healing Status: Acute Current Visit: No Code(s): T14.8XXD - Other injury of unspecified body region, subsequent encounter (4) Edema, lower extremity Status: Acute Current Visit: No Code(s): R60.0 - Localized edema Type of Wound Chief Complaint: ulcer right hallux History of Wound: This 52 year old diabetic male presents to wound center today for ulcer of his right medial plantar great toe. Patient states that he has been trying to lose weight and has been working out on the treadmill at [employer]. He says this ulcer is in the same area on his left great toe this time that he had healed out earlier in the year on his right great toe. These were both caused the same way. He says after a while, he noticed some callus building up on his left great toe that eventually broke down into an ulcer. He was seen in my office last week and followed up at wound healing center today for continuation of care. Patient has been taking Augmentin as prescribed last week and applying daily lluvia dressing changes with the help of his . Patient denies any purulence or extending redness. He currently denies any feelings of nausea, vomiting, fever, or chills. Progress of Wound: Ulcer stable. Has been having daily lluvia dressing changes with help of . Keeps area offloaded with offloading surgical shoe. Says he has been doing best to sit with foot elevated as much as possible. Denies fellings of nausea, vomiting, fever, or chills. - Physical Exam Vital Signs Temp Pulse Resp BP 97.8 F 86 18 152/87 H 07/13/18 01:36 07/13/18 01:36 07/13/18 01:36 07/13/18 01:36 General: Alert, Oriented x3, Cooperative, No apparent distress Extremities: Capillary Refill Less than 3 Seconds, No Calf Tenderness, Edema - Negative Suellen and Santiago sign bilateral lower extremity edema, Peripheral Pulses Normal - DP and PT pulses palpable bilateral Skin: Ulcer/ Wound - Ulcer to right plantar medial hallux with fat layer exposed. Measurements noted below. The base continues to be a mixture of adherent slough, fibrotic tissue, granular tissue, biofilm, as well as some surrounding hyperkeratotic tissue. There continues to be no purulence, no malodor, no streaking cellulitis, no increase in warmth, no probing to bone, no tracking, and no undermining. Wound Measurements and Assessment WC - Nurse 2 - General Ulcer CM Notes Start: 07/19/18 08:13 Freq: Status: Active Protocol: Activity Type Activity Date Activity User E-Sign Co-Sign Detail Recorded Client Recorded Date Recorded By Document 07/19/18 08:13 DV [id number] 07/19/18 08:14 DV 07/19/18 08:13 Wound Center Nurse 2 [Procedure/Treatment] #3 Right Big Toe -Time 08:14 -Correct Patient Yes -Correct Side, Site, Position Yes -Correct Procedure Yes -Procedure Performed Yes -Type of Procedure Debridement -Clinical Debridement Subcutaneous -Post Debridement Size (cm) - Length 0.5 -Post Debridement Size (cm) - Width 0.5 -Post Debridement Size (cm) - Depth 0.2 -Total Square Cm 0.25 -Wound/Ulcer Outcome Not Healed -Foul Odor after Cleansing No -Bioengineered Tissue No -Bleeding Controlled with Pressure -Offloading No -Type of Offloading Surgical Shoe -Treatment Response Procedure Tolerated Well [See Physician Procedure note for Specifics] Musculoskeletal: - - No pain with manipulation of ulcer site Neurological: - - Epicritic sensation grossly absent lower extremity Psych/Mental Status: Normal Affect, Appropriate Debridement Note Post-Debridement Measurements/Treatment WC - Nurse 2 - General Ulcer CM Notes Start: 07/19/18 08:13 Freq: Status: Active Protocol: Activity Type Activity Date Activity User E-Sign Co-Sign Detail Recorded Client Recorded Date Recorded By Document 07/19/18 08:13 DV [id number] 07/19/18 08:14 DV 07/19/18 08:13 Wound Center Nurse 2 #3 Right Big Toe -Time 08:14 -Correct Patient Yes -Correct Side, Site, Position Yes -Correct Procedure Yes -Procedure Performed Yes -Type of Procedure Debridement -Clinical Debridement Subcutaneous -Post Debridement Size (cm) - Length 0.5 -Post Debridement Size (cm) - Width 0.5 -Post Debridement Size (cm) - Depth 0.2 -Total Square Cm 0.25 -Wound/Ulcer Outcome Not Healed -Foul Odor after Cleansing No -Bioengineered Tissue No -Bleeding Controlled with Pressure -Offloading No -Type of Offloading Surgical Shoe -Treatment Response Procedure Tolerated Well Wound debrided: Right plantar medial hallux Laterality: Right Type of Debridement: Excisional debridement Anesthesia Used: 4% Lidocaine Solution Depth: in the subcutaneous layer Percentage of wound debrided: 100 Instrument Used: #15 blade, - - Tissue nipper Tissue Removed: Adherent slough, fibrotic tissue, biofilm, hyperkeratotic tissue Severity: Fat Layer Exposed Amount of bleeding with debridement: Mild Bleeding Controlled with: Pressure Patient tolerated procedure well Assessment/Plan Assessment: Ulcer with fat layer exposed to right plantar medial hallux. DM 2 with neuropathy Plan: Patient was carefully examined and evaluated again today for ulcer to the right hallux. Patient says his blood sugar was 98 today and he lost 25 more pounds last month. Ulcer site was debrided subcutaneously as noted in the clinical panel again today. Once complete, the ulcer site was carefully cleansed and then dressed with a slightly moistened Lluvia followed by dry sterile dressing. Patient's dressing is to be changed in this manner daily with the help of his . The patient is to continue with offloading surgical shoe with a dual density insert with offloaded area for right hallux. Patient was also instructed to try and focus pressure to his heel and away from the forefoot/great toe while walking. Patient is continuing to wear his offloading diabetic shoe on the opposite foot. Patient was instructed to keep the offloading surgical shoe on at all times while weightbearing and to do his best to keep as much pressure and weight off his foot as he can while it continues to heal. I also recommended diet high in protein to help optimize ulcer healing potential. The importance of tight glycemic control was again discussed with this patient. Patient says he is currently on weight watchers diet trying to lose weight to take pressure off of his feet as well. The patient was educated on all signs and symptoms of local and systemic infection, and he was instructed to go to the emergency room immediately should he notice any these. All questions were answered to the patient's satisfaction. The patient will follow up at the wound healing center in 1 week to check on progress, or sooner if needed.
[2018-07-26 08:04] VITALS: BP 159/79; PULSE 91; RESP 18; TEMP 37.4; BMI 51.7
--- NOTE | 2018-07-26 08:43 | PCM.WC.PN ---
(1) Ulcer of right foot with fat layer exposed Status: Acute Current Visit: No Code(s): L97.512 - Non-pressure chronic ulcer of other part of right foot with fat layer exposed (2) Type 2 diabetes mellitus with diabetic polyneuropathy Status: Acute Current Visit: No Code(s): E11.42 - Type 2 diabetes mellitus with diabetic polyneuropathy (3) Delayed wound healing Status: Acute Current Visit: No Code(s): T14.8XXD - Other injury of unspecified body region, subsequent encounter (4) Edema, lower extremity Status: Acute Current Visit: No Code(s): R60.0 - Localized edema Type of Wound Chief Complaint: ulcer right hallux History of Wound: This 52 year old diabetic male presents to wound center today for ulcer of his right medial plantar great toe. Patient states that he has been trying to lose weight and has been working out on the treadmill at [employer] He says this ulcer is in the same area on his left great toe this time that he had healed out earlier in the year on his right great toe. These were both caused the same way. He says after a while, he noticed some callus building up on his left great toe that eventually broke down into an ulcer. He was seen in my office last week and followed up at wound healing center today for continuation of care. Patient has been taking Augmentin as prescribed last week and applying daily cindi dressing changes with the help of his . Patient denies any purulence or extending redness. He currently denies any feelings of nausea, vomiting, fever, or chills. Progress of Wound: Ulcer stable again. Has been having daily cindi dressing changes with help of . Keeps area offloaded with offloading surgical shoe. Says he has been doing best to sit with foot elevated as much as possible. Denies fellings of nausea, vomiting, fever, or chills. - Physical Exam Vital Signs Temp Pulse Resp BP 99.3 F H 91 18 159/79 H 07/26/18 08:04 07/26/18 08:04 07/26/18 08:04 07/26/18 08:04 General: Alert, Oriented x3, Cooperative, No apparent distress Extremities: Capillary Refill Less than 3 Seconds, No Calf Tenderness - Negative Suellen and Santiago sign, Edema - Bilateral lower extremity edema, Peripheral Pulses Normal - DP and PT pulses palpable bilateral Skin: Ulcer/ Wound - Ulcer to right plantar medial hallux with fat layer exposed. Slight change in shape. Measurements noted below. The base continues to be a mixture of adherent slough, fibrotic tissue, granular tissue, biofilm, as well as some surrounding hyperkeratotic tissue. There continues to be no purulence, no malodor, no streaking cellulitis, no increase in warmth, no probing to bone, no tracking, and no undermining. Wound Measurements and Assessment WC - Nurse 1 - General Ulcer Measurement Start: 07/19/18 08:13 Freq: Status: Active Protocol: Activity Type Activity Date Activity User E-Sign Co-Sign Detail Recorded Client Recorded Date Recorded By Document 07/26/18 08:04 AN [id number] 07/26/18 08:16 AN 07/26/18 08:04 Wound Center Nurse 1 [Ulcer Assessment] #3 Right Big Toe -Current Size (cm) - Length 0.4 -Current Size (cm) - Width 0.3 -Current Size (cm) - Depth 0.1 -Total Square Cm 0.12 -Epithelialization None Present -Tunneling No -Undermining/Tunneling No -Circular Undermining No -Classification - Thickness Full Thickness without Exposed Support Structure -Exudate Amt Small -Exudate Type Serosanguineous -Wound Margin Distinct, Outline Attached -Granulation Amt Large (67-100%) -Granulation Quality [place] -Necrosis Amt Small (1-33%) -Necrotic Tissue Type Adherent Slough -Structure Exposed None/Limited to Skin Breakdown -Texture (Keila-wound Skin Appearance) Assessed -Moisture (Keila-wound Skin Appearance Assessed ) -Color (Keila-wound Skin Appearance) Assessed -Temperature (Keila-wound Skin No Abnormality Appearance) (Pt Warm) -Tenderness on Palpation (Keila-wound No Skin Appearance) -Ulcer Cleansing Rinsed/ Irrigated with Saline -Foul Odor after Cleansing No -Anesthetic Used 5% Lidocaine Gel WC - Nurse 2 - General Ulcer CM Notes Start: 07/19/18 08:13 Freq: Status: Active Protocol: Activity Type Activity Date Activity User E-Sign Co-Sign Detail Recorded Client Recorded Date Recorded By Document 07/26/18 08:28 DV [id number] 07/26/18 08:32 DV 07/26/18 08:28 Wound Center Nurse 2 [Procedure/Treatment] -Time 08:28 -Correct Patient Yes -Correct Side, Site, Position Yes -Correct Procedure Yes -Procedure Performed Yes -Type of Procedure Debridement -Clinical Debridement Subcutaneous -Post Debridement Size (cm) - Length 0.5 -Post Debridement Size (cm) - Width 0.4 -Post Debridement Size (cm) - Depth 0.2 -Total Square Cm 0.20 -Wound/Ulcer Outcome Not Healed -Ulcer Cleansing Rinsed/ Irrigated with Saline -Foul Odor after Cleansing No -Bioengineered Tissue No -Bleeding Controlled with Pressure -Offloading No -Type of Offloading Surgical Shoe -Treatment Response Procedure Tolerated Well [See Physician Procedure note for Specifics] Pain Scale: 0-10 Numeric [Pain] -Is Patient Pain Free? Yes Musculoskeletal: - - No pain or tenderness with manipulation of ulcer site Neurological: - - Epicritic sensation grossly absent lower extremity Psych/Mental Status: Normal Affect, Appropriate Debridement Note Post-Debridement Measurements/Treatment WC - Nurse 2 - General Ulcer CM Notes Start: 07/19/18 08:13 Freq: Status: Active Protocol: Activity Type Activity Date Activity User E-Sign Co-Sign Detail Recorded Client Recorded Date Recorded By Document 07/19/18 08:13 DV [id number] 07/19/18 08:14 DV Document 07/26/18 08:28 DV [id number] 07/26/18 08:32 DV 07/19/18 07/26/18 08:13 08:28 Wound Center Nurse 2 #3 Right Big Toe -Time 08:14 08:28 -Correct Patient Yes Yes -Correct Side, Site, Position Yes Yes -Correct Procedure Yes Yes -Procedure Performed Yes Yes -Type of Procedure Debridement Debridement -Clinical Debridement Subcutaneous Subcutaneous -Post Debridement Size (cm) - Length 0.5 0.5 -Post Debridement Size (cm) - Width 0.5 0.4 -Post Debridement Size (cm) - Depth 0.2 0.2 -Total Square Cm 0.25 0.20 -Wound/Ulcer Outcome Not Healed Not Healed -Ulcer Cleansing Rinsed/ Irrigated with Saline -Foul Odor after Cleansing No No -Bioengineered Tissue No No -Bleeding Controlled with Pressure Pressure -Offloading No No -Type of Offloading Surgical Shoe Surgical Shoe -Treatment Response Procedure Procedure Tolerated Well Tolerated Well Pain Scale: 0-10 Numeric Is Patient Pain Free? Yes Wound debrided: Right plantar medial hallux Laterality: Right Type of Debridement: Excisional debridement Anesthesia Used: 4% Lidocaine Solution Depth: in the subcutaneous layer Percentage of wound debrided: 100 Instrument Used: #15 blade Tissue Removed: Adherent slough, fibrotic tissue, biofilm, hyperkeratotic tissue Severity: Fat Layer Exposed Amount of bleeding with debridement: Mild Bleeding Controlled with: Pressure Patient tolerated procedure well Assessment/Plan Assessment: Ulcer with fat layer exposed to right plantar medial hallux. DM 2 with neuropathy Plan: Patient was carefully examined and evaluated again today for ulcer to the right hallux. Ulcer site was debrided subcutaneously as noted in the clinical panel again today. Once complete, the ulcer site was carefully cleansed and then dressed with a slightly moistened Cindi followed by dry sterile dressing. Patient's dressing is to be changed in this manner daily with the help of his . The patient is to continue with offloading surgical shoe with a dual density insert with offloaded area for right hallux. There is slight pressure still being applied to hallux, so the patient will use offloading pads he has at home to further offload the area. If pressure still continues to be an issue, we will add an extra layer of felt next week. Patient was also instructed to try and focus pressure to his heel and away from the forefoot/great toe while walking. Patient is continuing to wear his offloading diabetic shoe on the opposite foot. Patient was instructed to keep the offloading surgical shoe on at all times while weightbearing and to do his best to keep as much pressure and weight off his foot as he can while it continues to heal. I also recommended diet high in protein to help optimize ulcer healing potential. The importance of tight glycemic control was again discussed with this patient. Patient says he is currently on weight watchers diet trying to lose weight to take pressure off of his feet as well. The patient was educated on all signs and symptoms of local and systemic infection, and he was instructed to go to the emergency room immediately should he notice any these. All questions were answered to the patient's satisfaction. The patient will follow up at the wound healing center in 1 week to check on progress, or sooner if needed.
[2018-08-02 08:05] VITALS: BP 143/88; PULSE 89; RESP 18; TEMP 37; BMI 51.7
--- NOTE | 2018-08-02 08:32 | PCM.WC.PN ---
(1) Ulcer of right foot with fat layer exposed Status: Acute Current Visit: No Code(s): L97.512 - Non-pressure chronic ulcer of other part of right foot with fat layer exposed (2) Type 2 diabetes mellitus with diabetic polyneuropathy Status: Acute Current Visit: No Code(s): E11.42 - Type 2 diabetes mellitus with diabetic polyneuropathy (3) Delayed wound healing Status: Acute Current Visit: No Code(s): T14.8XXD - Other injury of unspecified body region, subsequent encounter (4) Edema, lower extremity Status: Acute Current Visit: No Code(s): R60.0 - Localized edema Type of Wound Chief Complaint: ulcer right hallux History of Wound: This 52 year old diabetic male presents to wound center today for ulcer of his right medial plantar great toe. Patient states that he has been trying to lose weight and has been working out on the treadmill at [employer]. He says this ulcer is in the same area on his left great toe this time that he had healed out earlier in the year on his right great toe. These were both caused the same way. He says after a while, he noticed some callus building up on his left great toe that eventually broke down into an ulcer. He was seen in my office last week and followed up at wound healing center today for continuation of care. Patient has been taking Augmentin as prescribed last week and applying daily lluvia dressing changes with the help of his . Patient denies any purulence or extending redness. He currently denies any feelings of nausea, vomiting, fever, or chills. Progress of Wound: Ulcer shows minor improvement. Has been having daily lluvia dressing changes with help of . Keeps area offloaded with offloading surgical shoe. Says he has been doing best to sit with foot elevated as much as possible. Denies fellings of nausea, vomiting, fever, or chills. - Physical Exam Vital Signs Temp Pulse Resp BP 98.6 F 89 18 143/88 H 08/02/18 08:05 08/02/18 08:05 08/02/18 08:05 08/02/18 08:05 General: Alert, Oriented x3, Cooperative, No apparent distress Extremities: Capillary Refill Less than 3 Seconds, No Calf Tenderness - Negative Suellen and Santiago sign, Edema - Bilateral lower extremity edema, Peripheral Pulses Normal - DP and PT pulses palpable bilateral Skin: Ulcer/ Wound - Ulcer to right plantar medial hallux with fat layer exposed. Very minor improvement noted. Measurements noted below. The base continues to be a mixture of adherent slough, fibrotic tissue, granular tissue, biofilm, as well as some surrounding hyperkeratotic tissue. There continues to be no purulence, no malodor, no streaking cellulitis, no increase in warmth, no probing to bone, no tracking, and no undermining. Wound Measurements and Assessment WC - Nurse 1 - General Ulcer Measurement Start: 07/19/18 08:13 Freq: Status: Active Protocol: Activity Type Activity Date Activity User E-Sign Co-Sign Detail Recorded Client Recorded Date Recorded By Document 08/02/18 08:05 DL [id number] 08/02/18 08:11 DL 08/02/18 08:05 Wound Center Nurse 1 [Ulcer Assessment] #3 Right Big Toe -Current Size (cm) - Length 0.5 -Current Size (cm) - Width 0.3 -Current Size (cm) - Depth 0.2 -Total Square Cm 0.15 -Photo Taken No -Maximum Distance #2 (cm) 0.2 -Circular Undermining Yes -Exudate Amt None Present -Exudate Type Serosanguineous -Wound Margin Thickened -Granulation Amt Small (1-33%) -Granulation Quality [place] -Necrosis Amt Small (1-33%) -Necrotic Tissue Type Adherent Slough -Structure Exposed N/A -Texture (Keila-wound Skin Appearance) Callus -Moisture (Keila-wound Skin Appearance Dry/Scaly ) -Color (Keila-wound Skin Appearance) No Abnormality -Temperature (Keila-wound Skin No Abnormality Appearance) (Pt Warm) -Tenderness on Palpation (Keila-wound No Skin Appearance) -Ulcer Cleansing Rinsed/ Irrigated with Saline -Foul Odor after Cleansing No -Anesthetic Used 4% Lidocaine Solution WC - Nurse 2 - General Ulcer CM Notes Start: 07/19/18 08:13 Freq: Status: Active Protocol: Activity Type Activity Date Activity User E-Sign Co-Sign Detail Recorded Client Recorded Date Recorded By Document 08/02/18 08:19 DV [id number] 08/02/18 08:21 DV 08/02/18 08:19 Wound Center Nurse 2 [Procedure/Treatment] -Time 08:19 -Correct Patient Yes -Correct Side, Site, Position Yes -Correct Procedure Yes -Procedure Performed Yes -Type of Procedure Debridement -Clinical Debridement Subcutaneous -Post Debridement Size (cm) - Length 0.5 -Post Debridement Size (cm) - Width 0.4 -Post Debridement Size (cm) - Depth 0.2 -Total Square Cm 0.20 -Wound/Ulcer Outcome Not Healed -Ulcer Cleansing Rinsed/ Irrigated with Saline -Foul Odor after Cleansing No -Bioengineered Tissue No -Bleeding Controlled with Pressure -Offloading No -Type of Offloading Camwalker -Treatment Response Procedure Tolerated Well [See Physician Procedure note for Specifics] Pain Scale: 0-10 Numeric [Pain] -Is Patient Pain Free? Yes Musculoskeletal: - - No pain or tenderness with manipulation of ulcer site Neurological: - - Epicritic sensation grossly absent lower extremity Psych/Mental Status: Normal Affect, Appropriate Debridement Note Post-Debridement Measurements/Treatment WC - Nurse 2 - General Ulcer CM Notes Start: 07/19/18 08:13 Freq: Status: Active Protocol: Activity Type Activity Date Activity User E-Sign Co-Sign Detail Recorded Client Recorded Date Recorded By Document 07/19/18 08:13 DV [id number] 07/19/18 08:14 DV Document 07/26/18 08:28 DV [id number] 07/26/18 08:32 DV Document 08/02/18 08:19 DV [id number] 08/02/18 08:21 DV 07/19/18 07/26/18 08/02/18 08:13 08:28 08:19 Wound Center Nurse 2 #3 Right Big Toe -Time 08:14 08:28 08:19 -Correct Patient Yes Yes Yes -Correct Side, Site, Position Yes Yes Yes -Correct Procedure Yes Yes Yes -Procedure Performed Yes Yes Yes -Type of Procedure Debridement Debridement Debridement -Clinical Debridement Subcutaneous Subcutaneous Subcutaneous -Post Debridement Size (cm) - Length 0.5 0.5 0.5 -Post Debridement Size (cm) - Width 0.5 0.4 0.4 -Post Debridement Size (cm) - Depth 0.2 0.2 0.2 -Total Square Cm 0.25 0.20 0.20 -Wound/Ulcer Outcome Not Healed Not Healed Not Healed -Ulcer Cleansing Rinsed/ Rinsed/ Irrigated with Irrigated with Saline Saline -Foul Odor after Cleansing No No No -Bioengineered Tissue No No No -Bleeding Controlled with Pressure Pressure Pressure -Offloading No No No -Type of Offloading Surgical Shoe Surgical Shoe Sheri -Treatment Response Procedure Procedure Procedure Tolerated Well Tolerated Well Tolerated Well Pain Scale: 0-10 Numeric Is Patient Pain Free? Yes Yes Wound debrided: Right plantar medial hallux Laterality: Right Type of Debridement: Excisional debridement Anesthesia Used: 4% Lidocaine Solution Depth: in the subcutaneous layer Percentage of wound debrided: 100 Instrument Used: #15 blade Tissue Removed: Adherent slough, fibrotic tissue, biofilm, hyperkeratotic tissue Severity: Fat Layer Exposed Amount of bleeding with debridement: Mild Bleeding Controlled with: Pressure Patient tolerated procedure well Assessment/Plan Assessment: Ulcer with fat layer exposed to right plantar medial hallux. DM 2 with neuropathy Plan: Patient was carefully examined and evaluated again today for ulcer to the right hallux. Ulcer site was debrided subcutaneously as noted in the clinical panel again today. Once complete, the ulcer site was carefully cleansed and then dressed with a slightly moistened Lluvia followed by dry sterile dressing. Patient's dressing is to be changed in this manner daily with the help of his . The patient is to continue with offloading surgical shoe with a dual density insert with offloaded area for right hallux. [facility] will [facility] leaves to have another layer added to his offloading shoe to make sure the hallux is completely offloaded. Patient was also instructed to try and focus pressure to his heel and away from the forefoot/great toe while walking. Patient is continuing to wear his offloading diabetic shoe on the opposite foot. Patient was instructed to keep the offloading surgical shoe on at all times while weightbearing and to do his best to keep as much pressure and weight off his foot as he can while it continues to heal. I also recommended diet high in protein to help optimize ulcer healing potential. The importance of tight glycemic control was again discussed with this patient. Patient says he is currently on weight watchers diet trying to lose weight to take pressure off of his feet as well. The patient was educated on all signs and symptoms of local and systemic infection, and he was instructed to go to the emergency room immediately should he notice any these. All questions were answered to the patient's satisfaction. The patient will follow up at the wound healing center in 1 week to check on progress, or sooner if needed.
--- NOTE | 2018-08-02 08:37 | PN.PCM_ITS ---
(1) Ulcer of right foot with fat layer exposed Status: Acute Current Visit: No Code(s): L97.512 - Non-pressure chronic ulcer of other part of right foot with fat layer exposed (2) Type 2 diabetes mellitus with diabetic polyneuropathy Status: Acute Current Visit: No Code(s): E11.42 - Type 2 diabetes mellitus with diabetic polyneuropathy (3) Delayed wound healing Status: Acute Current Visit: No Code(s): T14.8XXD - Other injury of unspecified body region, subsequent encounter (4) Edema, lower extremity Status: Acute Current Visit: No Code(s): R60.0 - Localized edema Type of Wound Chief Complaint: ulcer right hallux History of Wound: This 52 year old diabetic male presents to wound center today for ulcer of his right medial plantar great toe. Patient states that he has been trying to lose weight and has been working out on the treadmill at [employer]. He says this ulcer is in the same area on his left great toe this time that he had healed out earlier in the year on his right great toe. These were both caused the same way. He says after a while, he noticed some callus building up on his left great toe that eventually broke down into an ulcer. He was seen in my office last week and followed up at wound healing center today for continuation of care. Patient has been taking Augmentin as prescribed last week and applying daily lluvia dressing changes with the help of his . Patient denies any purulence or extending redness. He currently denies any feelings of nausea, vomiting, fever, or chills. Progress of Wound: Ulcer shows minor improvement. Has been having daily lluvia dressing changes with help of . Keeps area offloaded with offloading surgical shoe. Says he has been doing best to sit with foot elevated as much as possible. Denies fellings of nausea, vomiting, fever, or chills. - Physical Exam Vital Signs Temp Pulse Resp BP 98.6 F 89 18 143/88 H 08/02/18 08:05 08/02/18 08:05 08/02/18 08:05 08/02/18 08:05 General: Alert, Oriented x3, Cooperative, No apparent distress Extremities: Capillary Refill Less than 3 Seconds, No Calf Tenderness - Negative Suellen and Santiago sign, Edema - Bilateral lower extremity edema, Peripheral Pulses Normal - DP and PT pulses palpable bilateral Skin: Ulcer/ Wound - Ulcer to right plantar medial hallux with fat layer exposed. Very minor improvement noted. Measurements noted below. The base continues to be a mixture of adherent slough, fibrotic tissue, granular tissue, biofilm, as well as some surrounding hyperkeratotic tissue. There continues to be no purulence, no malodor, no streaking cellulitis, no increase in warmth, no probing to bone, no tracking, and no undermining. Wound Measurements and Assessment WC - Nurse 1 - General Ulcer Measurement Start: 07/19/18 08:13 Freq: Status: Active Protocol: Activity Type Activity Date Activity User E-Sign Co-Sign Detail Recorded Client Recorded Date Recorded By Document 08/02/18 08:05 DL [id number] 08/02/18 08:11 DL 08/02/18 08:05 Wound Center Nurse 1 [Ulcer Assessment] #3 Right Big Toe -Current Size (cm) - Length 0.5 -Current Size (cm) - Width 0.3 -Current Size (cm) - Depth 0.2 -Total Square Cm 0.15 -Photo Taken No -Maximum Distance #2 (cm) 0.2 -Circular Undermining Yes -Exudate Amt None Present -Exudate Type Serosanguineous -Wound Margin Thickened -Granulation Amt Small (1-33%) -Granulation Quality [place] -Necrosis Amt Small (1-33%) -Necrotic Tissue Type Adherent Slough -Structure Exposed N/A -Texture (Keila-wound Skin Appearance) Callus -Moisture (Keila-wound Skin Appearance Dry/Scaly ) -Color (Keila-wound Skin Appearance) No Abnormality -Temperature (Keila-wound Skin No Abnormality Appearance) (Pt Warm) -Tenderness on Palpation (Keila-wound No Skin Appearance) -Ulcer Cleansing Rinsed/ Irrigated with Saline -Foul Odor after Cleansing No -Anesthetic Used 4% Lidocaine Solution WC - Nurse 2 - General Ulcer CM Notes Start: 07/19/18 08:13 Freq: Status: Active Protocol: Activity Type Activity Date Activity User E-Sign Co-Sign Detail Recorded Client Recorded Date Recorded By Document 08/02/18 08:19 DV [id number] 08/02/18 08:21 DV 08/02/18 08:19 Wound Center Nurse 2 [Procedure/Treatment] -Time 08:19 -Correct Patient Yes -Correct Side, Site, Position Yes -Correct Procedure Yes -Procedure Performed Yes -Type of Procedure Debridement -Clinical Debridement Subcutaneous -Post Debridement Size (cm) - Length 0.5 -Post Debridement Size (cm) - Width 0.4 -Post Debridement Size (cm) - Depth 0.2 -Total Square Cm 0.20 -Wound/Ulcer Outcome Not Healed -Ulcer Cleansing Rinsed/ Irrigated with Saline -Foul Odor after Cleansing No -Bioengineered Tissue No -Bleeding Controlled with Pressure -Offloading No -Type of Offloading Camwalker -Treatment Response Procedure Tolerated Well [See Physician Procedure note for Specifics] Pain Scale: 0-10 Numeric [Pain] -Is Patient Pain Free? Yes Musculoskeletal: - - No pain or tenderness with manipulation of ulcer site Neurological: - - Epicritic sensation grossly absent lower extremity Psych/Mental Status: Normal Affect, Appropriate Debridement Note Post-Debridement Measurements/Treatment WC - Nurse 2 - General Ulcer CM Notes Start: 07/19/18 08:13 Freq: Status: Active Protocol: Activity Type Activity Date Activity User E-Sign Co-Sign Detail Recorded Client Recorded Date Recorded By Document 07/19/18 08:13 DV [id number] 07/19/18 08:14 DV Document 07/26/18 08:28 DV [id number] 07/26/18 08:32 DV Document 08/02/18 08:19 DV [id number] 08/02/18 08:21 DV 07/19/18 07/26/18 08/02/18 08:13 08:28 08:19 Wound Center Nurse 2 #3 Right Big Toe -Time 08:14 08:28 08:19 -Correct Patient Yes Yes Yes -Correct Side, Site, Position Yes Yes Yes -Correct Procedure Yes Yes Yes -Procedure Performed Yes Yes Yes -Type of Procedure Debridement Debridement Debridement -Clinical Debridement Subcutaneous Subcutaneous Subcutaneous -Post Debridement Size (cm) - Length 0.5 0.5 0.5 -Post Debridement Size (cm) - Width 0.5 0.4 0.4 -Post Debridement Size (cm) - Depth 0.2 0.2 0.2 -Total Square Cm 0.25 0.20 0.20 -Wound/Ulcer Outcome Not Healed Not Healed Not Healed -Ulcer Cleansing Rinsed/ Rinsed/ Irrigated with Irrigated with Saline Saline -Foul Odor after Cleansing No No No -Bioengineered Tissue No No No -Bleeding Controlled with Pressure Pressure Pressure -Offloading No No No -Type of Offloading Surgical Shoe Surgical Shoe Sheri -Treatment Response Procedure Procedure Procedure Tolerated Well Tolerated Well Tolerated Well Pain Scale: 0-10 Numeric Is Patient Pain Free? Yes Yes Wound debrided: Right plantar medial hallux Laterality: Right Type of Debridement: Excisional debridement Anesthesia Used: 4% Lidocaine Solution Depth: in the subcutaneous layer Percentage of wound debrided: 100 Instrument Used: #15 blade Tissue Removed: Adherent slough, fibrotic tissue, biofilm, hyperkeratotic tissue Severity: Fat Layer Exposed Amount of bleeding with debridement: Mild Bleeding Controlled with: Pressure Patient tolerated procedure well Assessment/Plan Assessment: Ulcer with fat layer exposed to right plantar medial hallux. DM 2 with neuropathy Plan: Patient was carefully examined and evaluated again today for ulcer to the right hallux. Ulcer site was debrided subcutaneously as noted in the clinical panel again today. Once complete, the ulcer site was carefully cleansed and then dressed with a slightly moistened Lluvia followed by dry sterile dressing. Patient's dressing is to be changed in this manner daily with the help of his . The patient is to continue with offloading surgical shoe with a dual density insert with offloaded area for right hallux. Patient will go to [facility] when he leaves to have another layer added to his offloading shoe to make sure the hallux is completely offloaded. Patient was also instructed to try and focus pressure to his heel and away from the forefoot/great toe while walking. Patient is continuing to wear his offloading diabetic shoe on the opposite foot. Patient was instructed to keep the offloading surgical shoe on at all times while weightbearing and to do his best to keep as much pressure and weight off his foot as he can while it continues to heal. I also recommended diet high in protein to help optimize ulcer healing potential. The importance of tight glycemic control was again discussed with this patient. Patient says he is currently on weight watchers diet trying to lose weight to take pressure off of his feet as well. The patient was educated on all signs and symptoms of local and systemic infection, and he was instructed to go to the emergency room immediately should he notice any these. All questions were answered to the patient's satisfaction. The patient will follow up at the wound healing center in 1 week to check on progress, or sooner if needed.
[2018-08-09 08:08] VITALS: BP 160/90; PULSE 97; RESP 18; TEMP 36.7; BMI 51.7
--- NOTE | 2018-08-09 09:01 | PCM.WC.PN ---
(1) Ulcer of right foot with fat layer exposed Status: Acute Current Visit: No Code(s): L97.512 - Non-pressure chronic ulcer of other part of right foot with fat layer exposed (2) Type 2 diabetes mellitus with diabetic polyneuropathy Status: Acute Current Visit: No Code(s): E11.42 - Type 2 diabetes mellitus with diabetic polyneuropathy (3) Delayed wound healing Status: Acute Current Visit: No Code(s): T14.8XXD - Other injury of unspecified body region, subsequent encounter (4) Edema, lower extremity Status: Acute Current Visit: No Code(s): R60.0 - Localized edema Type of Wound Chief Complaint: ulcer right hallux History of Wound: This 52 year old diabetic male presents to wound center today for ulcer of his right medial plantar great toe. Patient states that he has been trying to lose weight and has been working out on the treadmill at [employer]. He says this ulcer is in the same area on his left great toe this time that he had healed out earlier in the year on his right great toe. These were both caused the same way. He says after a while, he noticed some callus building up on his left great toe that eventually broke down into an ulcer. He was seen in my office last week and followed up at wound healing center today for continuation of care. Patient has been taking Augmentin as prescribed last week and applying daily cindi dressing changes with the help of his . Patient denies any purulence or extending redness. He currently denies any feelings of nausea, vomiting, fever, or chills. Progress of Wound: Ulcer stable since last week. Has been having daily cindi dressing changes with help of . Keeps area offloaded with offloading surgical shoe. Denies fellings of nausea, vomiting, fever, or chills. - Physical Exam Vital Signs Temp Pulse Resp BP 98.0 F 97 18 160/90 H 08/09/18 08:08 08/09/18 08:08 08/09/18 08:08 08/09/18 08:08 General: Alert, Oriented x3, Cooperative, No apparent distress Extremities: Capillary Refill Less than 3 Seconds, No Calf Tenderness - Negative Suellen and Santiago sign, Edema - Bilateral lower extremity edema, Peripheral Pulses Normal - DP and PT pulses palpable bilateral Skin: Ulcer/ Wound - Ulcer to right plantar medial hallux with fat layer exposed. Ulcer stable. Measurements noted below. The base continues to be a mixture of adherent slough, fibrotic tissue, granular tissue, biofilm, as well as some surrounding hyperkeratotic tissue. There continues to be no purulence, no malodor, no streaking cellulitis, no increase in warmth, no probing to bone, no tracking, and no undermining. Wound Measurements and Assessment WC - Nurse 1 - General Ulcer Measurement Start: 07/19/18 08:13 Freq: Status: Active Protocol: Activity Type Activity Date Activity User E-Sign Co-Sign Detail Recorded Client Recorded Date Recorded By Document 08/09/18 08:08 MT [id number] 08/09/18 08:09 MT 08/09/18 08:08 Wound Center Nurse 1 [Ulcer Assessment] #3 Right Big Toe -Combined with other wound No -Current Size (cm) - Length 0.5 -Current Size (cm) - Width 0.3 -Current Size (cm) - Depth 0.2 -Total Square Cm 0.15 -Photo Taken No -Tunneling No -Undermining/Tunneling No -Circular Undermining No -Exudate Amt None Present -Wound Margin Thickened & Rolled Under -Granulation Amt Large (67-100%) -Granulation Quality Pale [place] Red -Necrosis Amt Small (1-33%) -Necrotic Tissue Type Adherent Slough -Texture (Keila-wound Skin Appearance) Assessed -Moisture (Keila-wound Skin Appearance Assessed ) -Color (Keila-wound Skin Appearance) Assessed -Temperature (Keila-wound Skin No Abnormality Appearance) (Pt Warm) -Tenderness on Palpation (Keila-wound No Skin Appearance) -Ulcer Cleansing Rinsed/ Irrigated with Saline -Foul Odor after Cleansing No -Anesthetic Used 4% Lidocaine Solution [Edema Assessment] -Lower Limb Edema Present NA WC - Nurse 2 - General Ulcer CM Notes Start: 07/19/18 08:13 Freq: Status: Active Protocol: Activity Type Activity Date Activity User E-Sign Co-Sign Detail Recorded Client Recorded Date Recorded By Document 08/09/18 08:18 DV [id number] 08/09/18 08:20 DV 08/09/18 08:18 Wound Center Nurse 2 [Procedure/Treatment] #3 Right Big Toe -Time 08:18 -Correct Patient Yes -Correct Side, Site, Position Yes -Correct Procedure Yes -Procedure Performed Yes -Type of Procedure Debridement -Clinical Debridement Subcutaneous -Post Debridement Size (cm) - Length 0.5 -Post Debridement Size (cm) - Width 0.3 -Post Debridement Size (cm) - Depth 0.2 -Total Square Cm 0.15 -Wound/Ulcer Outcome Not Healed -Ulcer Cleansing Rinsed/ Irrigated with Saline -Foul Odor after Cleansing No -Bioengineered Tissue No -Bleeding Controlled with Pressure -Offloading No -Type of Offloading Surgical Shoe -Treatment Response Procedure Tolerated Well [See Physician Procedure note for Specifics] Pain Scale: 0-10 Numeric [Pain] -Is Patient Pain Free? Yes Musculoskeletal: - - No pain or tenderness with manipulation of ulcer site Neurological: - - Epicritic sensation grossly absent to lower extremity Psych/Mental Status: Normal Affect, Appropriate Debridement Note Post-Debridement Measurements/Treatment WC - Nurse 2 - General Ulcer CM Notes Start: 07/19/18 08:13 Freq: Status: Active Protocol: Activity Type Activity Date Activity User E-Sign Co-Sign Detail Recorded Client Recorded Date Recorded By Document 07/19/18 08:13 DV [id number] 07/19/18 08:14 DV Document 07/26/18 08:28 DV [id number] 07/26/18 08:32 DV Document 08/02/18 08:19 DV [id number] 08/02/18 08:21 DV Document 08/09/18 08:18 DV [id number] 08/09/18 08:20 DV 07/19/18 07/26/18 08/02/18 08:13 08:28 08:19 Wound Center Nurse 2 #3 Right Big Toe -Time 08:14 08:28 08:19 -Correct Patient Yes Yes Yes -Correct Side, Site, Position Yes Yes Yes -Correct Procedure Yes Yes Yes -Procedure Performed Yes Yes Yes -Type of Procedure Debridement Debridement Debridement -Clinical Debridement Subcutaneous Subcutaneous Subcutaneous -Post Debridement Size (cm) - Length 0.5 0.5 0.5 -Post Debridement Size (cm) - Width 0.5 0.4 0.4 -Post Debridement Size (cm) - Depth 0.2 0.2 0.2 -Total Square Cm 0.25 0.20 0.20 -Wound/Ulcer Outcome Not Healed Not Healed Not Healed -Ulcer Cleansing Rinsed/ Rinsed/ Irrigated with Irrigated with Saline Saline -Foul Odor after Cleansing No No No -Bioengineered Tissue No No No -Bleeding Controlled with Pressure Pressure Pressure -Offloading No No No -Type of Offloading Surgical Shoe Surgical Shoe Camwalker -Treatment Response Procedure Procedure Procedure Tolerated Well Tolerated Well Tolerated Well Pain Scale: 0-10 Numeric Is Patient Pain Free? Yes Yes 08/09/18 08:18 Wound Center Nurse 2 #3 Right Big Toe -Time 08:18 -Correct Patient Yes -Correct Side, Site, Position Yes -Correct Procedure Yes -Procedure Performed Yes -Type of Procedure Debridement -Clinical Debridement Subcutaneous -Post Debridement Size (cm) - Length 0.5 -Post Debridement Size (cm) - Width 0.3 -Post Debridement Size (cm) - Depth 0.2 -Total Square Cm 0.15 -Wound/Ulcer Outcome Not Healed -Ulcer Cleansing Rinsed/ Irrigated with Saline -Foul Odor after Cleansing No -Bioengineered Tissue No -Bleeding Controlled with Pressure -Offloading No -Type of Offloading Surgical Shoe -Treatment Response Procedure Tolerated Well Pain Scale: 0-10 Numeric Is Patient Pain Free? Yes Wound debrided: Right plantar medial hallux Laterality: Right Type of Debridement: Excisional debridement Anesthesia Used: 4% Lidocaine Solution Depth: in the subcutaneous layer Percentage of wound debrided: 100 Instrument Used: #15 blade, - - Tissue nipper Tissue Removed: Adherent slough, fibrotic tissue, biofilm, hyperkeratotic tissue Severity: Fat Layer Exposed Amount of bleeding with debridement: Mild Bleeding Controlled with: Pressure Patient tolerated procedure well Assessment/Plan Assessment: Ulcer with fat layer exposed to right plantar medial hallux. DM 2 with neuropathy Plan: Patient was carefully examined and evaluated again today for ulcer to the right hallux. Ulcer site was debrided subcutaneously as noted in the clinical panel again today. Once complete, the ulcer site was carefully cleansed and then dressed with a slightly moistened Cindi followed by dry sterile dressing. Patient's dressing is to be changed in this manner daily with the help of his . The patient is to continue with offloading surgical shoe with a dual density insert with offloaded area for right hallux. Patient had another layer of padding applied to his surgical shoe last week. Patient was also instructed to try and focus pressure to his heel and away from the forefoot/great toe while walking. Patient is continuing to wear his offloading diabetic shoe on the opposite foot. Patient was instructed to keep the offloading surgical shoe on at all times while weightbearing and to do his best to keep as much pressure and weight off his foot as he can while it continues to heal. I also recommended diet high in protein to help optimize ulcer healing potential. The importance of tight glycemic control was again discussed with this patient. Patient says he is currently on weight watchers diet trying to lose weight to take pressure off of his feet as well. The patient was educated on all signs and symptoms of local and systemic infection, and he was instructed to go to the emergency room immediately should he notice any these. All questions were answered to the patient's satisfaction. The patient will follow up at the wound healing center in 1 week to check on progress, or sooner if needed.
--- NOTE | 2018-08-09 09:06 | PN.PCM_ITS ---
(1) Ulcer of right foot with fat layer exposed Status: Acute Current Visit: No Code(s): L97.512 - Non-pressure chronic ulcer of other part of right foot with fat layer exposed (2) Type 2 diabetes mellitus with diabetic polyneuropathy Status: Acute Current Visit: No Code(s): E11.42 - Type 2 diabetes mellitus with diabetic polyneuropathy (3) Delayed wound healing Status: Acute Current Visit: No Code(s): T14.8XXD - Other injury of unspecified body region, subsequent encounter (4) Edema, lower extremity Status: Acute Current Visit: No Code(s): R60.0 - Localized edema Type of Wound Chief Complaint: ulcer right hallux History of Wound: This 52 year old diabetic male presents to wound center today for ulcer of his right medial plantar great toe. Patient states that he has been trying to lose weight and has been working out on the treadmill at [employer]. He says this ulcer is in the same area on his left great toe this time that he had healed out earlier in the year on his right great toe. These were both caused the same way. He says after a while, he noticed some callus building up on his left great toe that eventually broke down into an ulcer. He was seen in my office last week and followed up at wound healing center today for continuation of care. Patient has been taking Augmentin as prescribed last week and applying daily cindi dressing changes with the help of his . Patient denies any purulence or extending redness. He currently denies any feelings of nausea, vomiting, fever, or chills. Progress of Wound: Ulcer stable since last week. Has been having daily cindi dressing changes with help of . Keeps area offloaded with offloading surgical shoe. Denies fellings of nausea, vomiting, fever, or chills. - Physical Exam Vital Signs Temp Pulse Resp BP 98.0 F 97 18 160/90 H 08/09/18 08:08 08/09/18 08:08 08/09/18 08:08 08/09/18 08:08 General: Alert, Oriented x3, Cooperative, No apparent distress Extremities: Capillary Refill Less than 3 Seconds, No Calf Tenderness - Negative Suellen and Santiago sign, Edema - Bilateral lower extremity edema, Peripheral Pulses Normal - DP and PT pulses palpable bilateral Skin: Ulcer/ Wound - Ulcer to right plantar medial hallux with fat layer exposed. Ulcer stable. Measurements noted below. The base continues to be a mixture of adherent slough, fibrotic tissue, granular tissue, biofilm, as well as some surrounding hyperkeratotic tissue. There continues to be no purulence, no malodor, no streaking cellulitis, no increase in warmth, no probing to bone, no tracking, and no undermining. Wound Measurements and Assessment WC - Nurse 1 - General Ulcer Measurement Start: 07/19/18 08:13 Freq: Status: Active Protocol: Activity Type Activity Date Activity User E-Sign Co-Sign Detail Recorded Client Recorded Date Recorded By Document 08/09/18 08:08 MT [id number] 08/09/18 08:09 MT 08/09/18 08:08 Wound Center Nurse 1 [Ulcer Assessment] #3 Right Big Toe -Combined with other wound No -Current Size (cm) - Length 0.5 -Current Size (cm) - Width 0.3 -Current Size (cm) - Depth 0.2 -Total Square Cm 0.15 -Photo Taken No -Tunneling No -Undermining/Tunneling No -Circular Undermining No -Exudate Amt None Present -Wound Margin Thickened & Rolled Under -Granulation Amt Large (67-100%) -Granulation Quality Pale [place] Red -Necrosis Amt Small (1-33%) -Necrotic Tissue Type Adherent Slough -Texture (Keila-wound Skin Appearance) Assessed -Moisture (Keila-wound Skin Appearance Assessed ) -Color (Keila-wound Skin Appearance) Assessed -Temperature (Keila-wound Skin No Abnormality Appearance) (Pt Warm) -Tenderness on Palpation (Keila-wound No Skin Appearance) -Ulcer Cleansing Rinsed/ Irrigated with Saline -Foul Odor after Cleansing No -Anesthetic Used 4% Lidocaine Solution [Edema Assessment] -Lower Limb Edema Present NA WC - Nurse 2 - General Ulcer CM Notes Start: 07/19/18 08:13 Freq: Status: Active Protocol: Activity Type Activity Date Activity User E-Sign Co-Sign Detail Recorded Client Recorded Date Recorded By Document 08/09/18 08:18 DV [id number] 08/09/18 08:20 DV 08/09/18 08:18 Wound Center Nurse 2 [Procedure/Treatment] #3 Right Big Toe -Time 08:18 -Correct Patient Yes -Correct Side, Site, Position Yes -Correct Procedure Yes -Procedure Performed Yes -Type of Procedure Debridement -Clinical Debridement Subcutaneous -Post Debridement Size (cm) - Length 0.5 -Post Debridement Size (cm) - Width 0.3 -Post Debridement Size (cm) - Depth 0.2 -Total Square Cm 0.15 -Wound/Ulcer Outcome Not Healed -Ulcer Cleansing Rinsed/ Irrigated with Saline -Foul Odor after Cleansing No -Bioengineered Tissue No -Bleeding Controlled with Pressure -Offloading No -Type of Offloading Surgical Shoe -Treatment Response Procedure Tolerated Well [See Physician Procedure note for Specifics] Pain Scale: 0-10 Numeric [Pain] -Is Patient Pain Free? Yes Musculoskeletal: - - No pain or tenderness with manipulation of ulcer site Neurological: - - Epicritic sensation grossly absent to lower extremity Psych/Mental Status: Normal Affect, Appropriate Debridement Note Post-Debridement Measurements/Treatment WC - Nurse 2 - General Ulcer CM Notes Start: 07/19/18 08:13 Freq: Status: Active Protocol: Activity Type Activity Date Activity User E-Sign Co-Sign Detail Recorded Client Recorded Date Recorded By Document 07/19/18 08:13 DV [id number] 07/19/18 08:14 DV Document 07/26/18 08:28 DV [id number] 07/26/18 08:32 DV Document 08/02/18 08:19 DV [id number] 08/02/18 08:21 DV Document 08/09/18 08:18 DV [id number] 08/09/18 08:20 DV 07/19/18 07/26/18 08/02/18 08:13 08:28 08:19 Wound Center Nurse 2 #3 Right Big Toe -Time 08:14 08:28 08:19 -Correct Patient Yes Yes Yes -Correct Side, Site, Position Yes Yes Yes -Correct Procedure Yes Yes Yes -Procedure Performed Yes Yes Yes -Type of Procedure Debridement Debridement Debridement -Clinical Debridement Subcutaneous Subcutaneous Subcutaneous -Post Debridement Size (cm) - Length 0.5 0.5 0.5 -Post Debridement Size (cm) - Width 0.5 0.4 0.4 -Post Debridement Size (cm) - Depth 0.2 0.2 0.2 -Total Square Cm 0.25 0.20 0.20 -Wound/Ulcer Outcome Not Healed Not Healed Not Healed -Ulcer Cleansing Rinsed/ Rinsed/ Irrigated with Irrigated with Saline Saline -Foul Odor after Cleansing No No No -Bioengineered Tissue No No No -Bleeding Controlled with Pressure Pressure Pressure -Offloading No No No -Type of Offloading Surgical Shoe Surgical Shoe Camwalker -Treatment Response Procedure Procedure Procedure Tolerated Well Tolerated Well Tolerated Well Pain Scale: 0-10 Numeric Is Patient Pain Free? Yes Yes 08/09/18 08:18 Wound Center Nurse 2 #3 Right Big Toe -Time 08:18 -Correct Patient Yes -Correct Side, Site, Position Yes -Correct Procedure Yes -Procedure Performed Yes -Type of Procedure Debridement -Clinical Debridement Subcutaneous -Post Debridement Size (cm) - Length 0.5 -Post Debridement Size (cm) - Width 0.3 -Post Debridement Size (cm) - Depth 0.2 -Total Square Cm 0.15 -Wound/Ulcer Outcome Not Healed -Ulcer Cleansing Rinsed/ Irrigated with Saline -Foul Odor after Cleansing No -Bioengineered Tissue No -Bleeding Controlled with Pressure -Offloading No -Type of Offloading Surgical Shoe -Treatment Response Procedure Tolerated Well Pain Scale: 0-10 Numeric Is Patient Pain Free? Yes Wound debrided: Right plantar medial hallux Laterality: Right Type of Debridement: Excisional debridement Anesthesia Used: 4% Lidocaine Solution Depth: in the subcutaneous layer Percentage of wound debrided: 100 Instrument Used: #15 blade, - - Tissue nipper Tissue Removed: Adherent slough, fibrotic tissue, biofilm, hyperkeratotic tissue Severity: Fat Layer Exposed Amount of bleeding with debridement: Mild Bleeding Controlled with: Pressure Patient tolerated procedure well Assessment/Plan Assessment: Ulcer with fat layer exposed to right plantar medial hallux. DM 2 with neuropathy Plan: Patient was carefully examined and evaluated again today for ulcer to the right hallux. Ulcer site was debrided subcutaneously as noted in the clinical panel again today. Once complete, the ulcer site was carefully cleansed and then dressed with a slightly moistened Cindi followed by dry sterile dressing. Patient's dressing is to be changed in this manner daily with the help of his . The patient is to continue with offloading surgical shoe with a dual density insert with offloaded area for right hallux. Patient had another layer of padding applied to his surgical shoe last week. Patient was also instructed to try and focus pressure to his heel and away from the forefoot/great toe while walking. Patient is continuing to wear his offloading diabetic shoe on the opposite foot. Patient was instructed to keep the offloading surgical shoe on at all times while weightbearing and to do his best to keep as much pressure and weight off his foot as he can while it continues to heal. I also recommended diet high in protein to help optimize ulcer healing potential. The importance of tight glycemic control was again discussed with this patient. Patient says he is currently on weight watchers diet trying to lose weight to take pressure off of his feet as well. The patient was educated on all signs and symptoms of local and systemic infection, and he was instructed to go to the emergency room immediately should he notice any these. All questions were answered to the patient's satisfaction. The patient will follow up at the wound healing center in 1 week to check on progress, or sooner if needed.
== END 2018-08-09 23:59 ==
LOC: WC 08:00
PROVIDERS: Family Provider Family Medicine; PCP Family Medicine; Visit Provider Podiatrist
DX: E11.621 Type 2 diabetes mellitus with foot ulcer (principal); E11.42 Type 2 diabetes mellitus with diabetic polyneuropathy; L97.512 Non-pressure chronic ulcer of other part of right foot with fat layer exposed; R60.0 Localized edema
CPT/HCPCS: 11042

== ENCOUNTER 2018-09-06 08:00 | Outpatient (RCR) | payer BC, SELFPAY ==
[2018-08-10 01:16] VITALS: BP 160/90; PULSE 97; RESP 18; TEMP 36.7
[2018-08-16 08:15] VITALS: BP 145/76; PULSE 84; RESP 18; TEMP 36.5; BMI 51.7
--- NOTE | 2018-08-16 08:38 | PCM.WC.PN ---
(1) Ulcer of right foot with fat layer exposed Status: Acute Current Visit: No Code(s): L97.512 - Non-pressure chronic ulcer of other part of right foot with fat layer exposed (2) Type 2 diabetes mellitus with diabetic polyneuropathy Status: Acute Current Visit: No Code(s): E11.42 - Type 2 diabetes mellitus with diabetic polyneuropathy (3) Delayed wound healing Status: Acute Current Visit: No Code(s): T14.8XXD - Other injury of unspecified body region, subsequent encounter (4) Edema, lower extremity Status: Acute Current Visit: No Code(s): R60.0 - Localized edema Type of Wound Chief Complaint: ulcer right hallux History of Wound: This 52 year old diabetic male presents to wound center today for ulcer of his right medial plantar great toe. Patient states that he has been trying to lose weight and has been working out on the treadmill at [employer]. He says this ulcer is in the same area on his left great toe this time that he had healed out earlier in the year on his right great toe. These were both caused the same way. He says after a while, he noticed some callus building up on his left great toe that eventually broke down into an ulcer. He was seen in my office last week and followed up at wound healing center today for continuation of care. Patient has been taking Augmentin as prescribed last week and applying daily cindi dressing changes with the help of his . Patient denies any purulence or extending redness. He currently denies any feelings of nausea, vomiting, fever, or chills. Progress of Wound: Ulcer stable. Patient has been having daily cindi dressing changes with help of . Keeps area offloaded with offloading surgical shoe. Denies fellings of nausea, vomiting, fever, or chills. - Physical Exam Vital Signs Temp Pulse Resp BP 97.7 F L 84 18 145/76 H 08/16/18 08:15 08/16/18 08:15 08/16/18 08:15 08/16/18 08:15 General: Alert, Oriented x3, Cooperative, No apparent distress Extremities: Capillary Refill Less than 3 Seconds, No Calf Tenderness - Negative Suellen and Santiago sign, Edema - Bilateral lower extremity edema, Peripheral Pulses Normal - DP and PT pulses palpable bilateral Skin: Ulcer/ Wound - Ulcer to right plantar medial hallux with fat layer exposed. Measurements noted below. The base continues to be a mixture of adherent slough, fibrotic tissue, granular tissue, biofilm, as well as some surrounding hyperkeratotic tissue. There continues to be no purulence, no malodor, no streaking cellulitis, no increase in warmth, no probing to bone, no tracking, and no undermining. Wound Measurements and Assessment WC - Nurse 1 - General Ulcer Measurement Start: 08/16/18 08:15 Freq: Status: Active Protocol: Activity Type Activity Date Activity User E-Sign Co-Sign Detail Recorded Client Recorded Date Recorded By Document 08/16/18 08:15 MT [id number] 08/16/18 08:18 MT 08/16/18 08:15 Wound Center Nurse 1 [Ulcer Assessment] #3 Right Big Toe -Combined with other wound No -Current Size (cm) - Length 6 -Current Size (cm) - Width 3 -Current Size (cm) - Depth 0.2 -Total Square Cm 18 -Photo Taken No -Tunneling No -Undermining/Tunneling No -Circular Undermining Yes -Exudate Amt None Present -Wound Margin Thickened & Rolled Under -Granulation Amt Large (67-100%) -Granulation Quality Red -Necrosis Amt Small (1-33%) -Necrotic Tissue Type Eschar -Texture (Keila-wound Skin Appearance) Assessed Callus -Moisture (Keila-wound Skin Appearance Assessed ) -Color (Keila-wound Skin Appearance) Assessed -Temperature (Keila-wound Skin No Abnormality Appearance) (Pt Warm) -Tenderness on Palpation (Kiela-wound No Skin Appearance) -Ulcer Cleansing Rinsed/ Irrigated with Saline -Foul Odor after Cleansing No -Anesthetic Used 5% Lidocaine Gel WC - Nurse 2 - General Ulcer CM Notes Start: 08/16/18 08:15 Freq: Status: Active Protocol: Activity Type Activity Date Activity User E-Sign Co-Sign Detail Recorded Client Recorded Date Recorded By Document 08/16/18 08:27 DV [id number] 08/16/18 08:31 DV 08/16/18 08:27 Wound Center Nurse 2 [Procedure/Treatment] -Time 08:27 -Correct Patient Yes -Correct Side, Site, Position Yes -Correct Procedure Yes -Procedure Performed Yes -Type of Procedure Debridement -Clinical Debridement Subcutaneous -Post Debridement Size (cm) - Length 0.5 -Post Debridement Size (cm) - Width 0.3 -Post Debridement Size (cm) - Depth 0.2 -Total Square Cm 0.15 -Wound/Ulcer Outcome Not Healed -Ulcer Cleansing Rinsed/ Irrigated with Saline -Foul Odor after Cleansing No -Bioengineered Tissue No -Bleeding Controlled with Pressure -Offloading No -Treatment Response Procedure Tolerated Well [See Physician Procedure note for Specifics] Pain Scale: 0-10 Numeric [Pain] -Is Patient Pain Free? Yes Musculoskeletal: - - No pain or tenderness with manipulation of ulcer site Neurological: - - Epicritic sensation grossly absent to lower extremity Psych/Mental Status: Normal Affect, Appropriate Debridement Note Post-Debridement Measurements/Treatment WC - Nurse 2 - General Ulcer CM Notes Start: 08/16/18 08:15 Freq: Status: Active Protocol: Activity Type Activity Date Activity User E-Sign Co-Sign Detail Recorded Client Recorded Date Recorded By Document 08/16/18 08:27 DV [id number] 08/16/18 08:31 DV 08/16/18 08:27 Wound Center Nurse 2 #3 Right Big Toe -Time 08:27 -Correct Patient Yes -Correct Side, Site, Position Yes -Correct Procedure Yes -Procedure Performed Yes -Type of Procedure Debridement -Clinical Debridement Subcutaneous -Post Debridement Size (cm) - Length 0.5 -Post Debridement Size (cm) - Width 0.3 -Post Debridement Size (cm) - Depth 0.2 -Total Square Cm 0.15 -Wound/Ulcer Outcome Not Healed -Ulcer Cleansing Rinsed/ Irrigated with Saline -Foul Odor after Cleansing No -Bioengineered Tissue No -Bleeding Controlled with Pressure -Offloading No -Treatment Response Procedure Tolerated Well Pain Scale: 0-10 Numeric Is Patient Pain Free? Yes Wound debrided: Right plantar medial hallux Laterality: Right Type of Debridement: Excisional debridement Depth: in the subcutaneous layer Percentage of wound debrided: 100 Instrument Used: #15 blade Tissue Removed: Adherent slough, fibrotic tissue, biofilm, hyperkeratotic tissue Severity: Fat Layer Exposed Amount of bleeding with debridement: Mild Bleeding Controlled with: Pressure Patient tolerated procedure well Assessment/Plan Assessment: Ulcer with fat layer exposed to right plantar medial hallux. DM 2 with neuropathy Plan: Patient was carefully examined and evaluated again today for ulcer to the right hallux. Ulcer site was debrided subcutaneously as noted in the clinical panel again today. Once complete, the ulcer site was carefully cleansed and then dressed with a slightly moistened Cindi followed by dry sterile dressing. Patient's dressing is to be changed in this manner daily with the help of his . The patient is to continue with offloading surgical shoe with a dual density insert with offloaded area for right hallux. Patient is to continue to focus pressure to his heel and away from the forefoot/great toe while walking. Patient is continuing to wear his offloading diabetic shoe on the opposite foot. Patient was instructed to keep the offloading surgical shoe on at all times while weightbearing and to do his best to keep as much pressure and weight off his foot as he can while it continues to heal. I also recommended diet high in protein to help optimize ulcer healing potential. The importance of tight glycemic control was again discussed with this patient. Patient says he is currently on weight watchers diet trying to lose weight to take pressure off of his feet as well. The patient was educated on all signs and symptoms of local and systemic infection, and he was instructed to go to the emergency room immediately should he notice any these. All questions were answered to the patient's satisfaction. The patient will follow up at the wound healing center in 1 week to check on progress, or sooner if needed.
[2018-08-23 08:06] VITALS: BP 144/92; PULSE 85; RESP 20; TEMP 37; BMI 51.7
--- NOTE | 2018-08-23 08:34 | PCM.WC.PN ---
(1) Ulcer of right foot with fat layer exposed Status: Acute Current Visit: No Code(s): L97.512 - Non-pressure chronic ulcer of other part of right foot with fat layer exposed (2) Type 2 diabetes mellitus with diabetic polyneuropathy Status: Acute Current Visit: No Code(s): E11.42 - Type 2 diabetes mellitus with diabetic polyneuropathy (3) Delayed wound healing Status: Acute Current Visit: No Code(s): T14.8XXD - Other injury of unspecified body region, subsequent encounter (4) Edema, lower extremity Status: Acute Current Visit: No Code(s): R60.0 - Localized edema Type of Wound Chief Complaint: ulcer right hallux History of Wound: This 52 year old diabetic male presents to wound center today for ulcer of his right medial plantar great toe. Patient states that he has been trying to lose weight and has been working out on the treadmill at [email or web address]. He says this ulcer is in the same area on his left great toe this time that he had healed out earlier in the year on his right great toe. These were both caused the same way. He says after a while, he noticed some callus building up on his left great toe that eventually broke down into an ulcer. He was seen in my office last week and followed up at wound healing center today for continuation of care. Patient has been taking Augmentin as prescribed last week and applying daily cindi dressing changes with the help of his . Patient denies any purulence or extending redness. He currently denies any feelings of nausea, vomiting, fever, or chills. Progress of Wound: Ulcer shows minor improvement today. Patient has been having daily cindi dressing changes with help of . Keeps area offloaded with offloading surgical shoe. Denies fellings of nausea, vomiting, fever, or chills. - Physical Exam Vital Signs Temp Pulse Resp BP 98.6 F 85 20 H 144/92 H 08/23/18 08:06 08/23/18 08:06 08/23/18 08:06 08/23/18 08:06 General: Alert, Oriented x3, Cooperative, No apparent distress Extremities: Capillary Refill Less than 3 Seconds, No Calf Tenderness - Negative Suellen and Santiago sign, Edema - Bilateral lower extremity edema, Peripheral Pulses Normal - DP and PT pulses palpable bilateral Skin: Ulcer/ Wound - Ulcer to right plantar medial hallux with fat layer exposed. Measurements noted below. The base continues to be a mixture of adherent slough, fibrotic tissue, granular tissue, biofilm, as well as some surrounding hyperkeratotic tissue. There continues to be no purulence, no malodor, no streaking cellulitis, no increase in warmth, no probing to bone, no tracking, and no undermining. Wound Measurements and Assessment WC - Nurse 1 - General Ulcer Measurement Start: 08/16/18 08:15 Freq: Status: Active Protocol: Activity Type Activity Date Activity User E-Sign Co-Sign Detail Recorded Client Recorded Date Recorded By Document 08/23/18 08:06 DL [id number] 08/23/18 08:13 DL 08/23/18 08:06 Wound Center Nurse 1 [Ulcer Assessment] #3 Right Big Toe -Current Size (cm) - Length 0.4 -Current Size (cm) - Width 0.3 -Current Size (cm) - Depth 0.2 -Total Square Cm 0.12 -Photo Taken No -Maximum Distance #2 (cm) 0.3 -Circular Undermining Yes -Exudate Amt Small -Exudate Type Serosanguineous -Wound Margin Thickened -Granulation Amt Small (1-33%) -Granulation Quality [place] -Necrosis Amt Small (1-33%) -Necrotic Tissue Type Adherent Slough -Structure Exposed N/A -Texture (Keila-wound Skin Appearance) Callus -Moisture (Keila-wound Skin Appearance Dry/Scaly ) -Color (Keila-wound Skin Appearance) Rubor -Temperature (Keila-wound Skin No Abnormality Appearance) (Pt Warm) -Tenderness on Palpation (Keila-wound No Skin Appearance) -Ulcer Cleansing Rinsed/ Irrigated with Saline -Foul Odor after Cleansing No -Anesthetic Used 5% Lidocaine Gel WC - Nurse 2 - General Ulcer CM Notes Start: 08/16/18 08:15 Freq: Status: Active Protocol: Activity Type Activity Date Activity User E-Sign Co-Sign Detail Recorded Client Recorded Date Recorded By Document 08/23/18 08:24 DV [id number] 08/23/18 08:26 DV 08/23/18 08:24 Wound Center Nurse 2 [Procedure/Treatment] -Time 08:25 -Correct Patient Yes -Correct Side, Site, Position Yes -Correct Procedure Yes -Procedure Performed Yes -Type of Procedure Debridement -Clinical Debridement Subcutaneous -Post Debridement Size (cm) - Length 0.5 -Post Debridement Size (cm) - Width 0.2 -Post Debridement Size (cm) - Depth 0.2 -Total Square Cm 0.10 -Wound/Ulcer Outcome Not Healed -Ulcer Cleansing Rinsed/ Irrigated with Saline -Foul Odor after Cleansing No -Bioengineered Tissue No -Bleeding Controlled with Pressure -Offloading No -Treatment Response Procedure Tolerated Well [See Physician Procedure note for Specifics] Pain Scale: 0-10 Numeric [Pain] -Is Patient Pain Free? Yes Musculoskeletal: - - No pain with manipulation of ulcer site Neurological: - - Epicritic sensation grossly absent lower extremity Psych/Mental Status: Normal Affect, Appropriate Debridement Note Post-Debridement Measurements/Treatment WC - Nurse 2 - General Ulcer CM Notes Start: 08/16/18 08:15 Freq: Status: Active Protocol: Activity Type Activity Date Activity User E-Sign Co-Sign Detail Recorded Client Recorded Date Recorded By Document 08/16/18 08:27 DV [id number] 08/16/18 08:31 DV Document 08/23/18 08:24 DV [id number] 08/23/18 08:26 DV 08/16/18 08/23/18 08:27 08:24 Wound Center Nurse 2 #3 Right Big Toe -Time 08:27 08:25 -Correct Patient Yes Yes -Correct Side, Site, Position Yes Yes -Correct Procedure Yes Yes -Procedure Performed Yes Yes -Type of Procedure Debridement Debridement -Clinical Debridement Subcutaneous Subcutaneous -Post Debridement Size (cm) - Length 0.5 0.5 -Post Debridement Size (cm) - Width 0.3 0.2 -Post Debridement Size (cm) - Depth 0.2 0.2 -Total Square Cm 0.15 0.10 -Wound/Ulcer Outcome Not Healed Not Healed -Ulcer Cleansing Rinsed/ Rinsed/ Irrigated with Irrigated with Saline Saline -Foul Odor after Cleansing No No -Bioengineered Tissue No No -Bleeding Controlled with Pressure Pressure -Offloading No No -Treatment Response Procedure Procedure Tolerated Well Tolerated Well Pain Scale: 0-10 Numeric Is Patient Pain Free? Yes Yes Wound debrided: Right plantar medial hallux Laterality: Right Type of Debridement: Excisional debridement Anesthesia Used: 4% Lidocaine Solution Depth: in the subcutaneous layer Percentage of wound debrided: 100 Instrument Used: #15 blade Tissue Removed: Adherent slough, fibrotic tissue, biofilm, hyperkeratotic tissue Severity: Fat Layer Exposed Amount of bleeding with debridement: Mild Bleeding Controlled with: Pressure Patient tolerated procedure well Assessment/Plan Assessment: Ulcer with fat layer exposed to right plantar medial hallux. DM 2 with neuropathy Plan: Patient was carefully examined and evaluated again today for ulcer to the right hallux. Ulcer site was debrided subcutaneously as noted in the clinical panel again today. Very minor improvement noted today. Once complete, the ulcer site was carefully cleansed and then dressed with a slightly moistened Cindi followed by dry sterile dressing. Patient's dressing is to have dressing changed in this manner daily with the help of his . The patient is to continue with offloading surgical shoe with a dual density insert with offloaded area for right hallux. Patient is to continue to focus pressure to his heel and away from the forefoot/great toe while walking. Patient is continuing to wear his offloading diabetic shoe on the opposite foot. Patient was instructed to keep the offloading surgical shoe on at all times while weightbearing and to do his best to keep as much pressure and weight off his foot as he can while it continues to heal. I also recommended diet high in protein to help optimize ulcer healing potential. The importance of tight glycemic control was again discussed with this patient. Patient says he is currently on weight watchers diet trying to lose weight to take pressure off of his feet as well. The patient was educated on all signs and symptoms of local and systemic infection, and he was instructed to go to the emergency room immediately should he notice any these. All questions were answered to the patient's satisfaction. The patient will follow up at the wound healing center in 1 week to check on progress, or sooner if needed.
[2018-08-30 08:05] VITALS: BP 146/87; PULSE 94; RESP 20; TEMP 36.7; BMI 51.7
--- NOTE | 2018-08-30 09:41 | PCM.WC.PN ---
(1) Ulcer of right foot with fat layer exposed Status: Acute Current Visit: No Code(s): L97.512 - Non-pressure chronic ulcer of other part of right foot with fat layer exposed (2) Type 2 diabetes mellitus with diabetic polyneuropathy Status: Acute Current Visit: No Code(s): E11.42 - Type 2 diabetes mellitus with diabetic polyneuropathy (3) Delayed wound healing Status: Acute Current Visit: No Code(s): T14.8XXD - Other injury of unspecified body region, subsequent encounter (4) Edema, lower extremity Status: Acute Current Visit: No Code(s): R60.0 - Localized edema Type of Wound Chief Complaint: ulcer right hallux History of Wound: This 52 year old diabetic male presents to wound center today for ulcer of his right medial plantar great toe. Patient states that he has been trying to lose weight and has been working out on the treadmill at [employer]. He says this ulcer is in the same area on his left great toe this time that he had healed out earlier in the year on his right great toe. These were both caused the same way. He says after a while, he noticed some callus building up on his left great toe that eventually broke down into an ulcer. He was seen in my office last week and followed up at wound healing center today for continuation of care. Patient has been taking Augmentin as prescribed last week and applying daily cindi dressing changes with the help of his . Patient denies any purulence or extending redness. He currently denies any feelings of nausea, vomiting, fever, or chills. Progress of Wound: Ulcer stable today. Patient has been having daily cindi dressing changes with help of . Keeps area offloaded with offloading surgical shoe. Denies fellings of nausea, vomiting, fever, or chills. - Physical Exam Vital Signs Temp Pulse Resp BP 98.1 F 94 20 H 146/87 H 08/30/18 08:05 08/30/18 08:05 08/30/18 08:05 08/30/18 08:05 General: Alert, Oriented x3, Cooperative, No apparent distress Extremities: Capillary Refill Less than 3 Seconds, No Calf Tenderness - Negative Suellen and Santiago signs, Edema - Bilateral lower extremity edema, Peripheral Pulses Normal - DP and PT pulses palpable bilateral Skin: Ulcer/ Wound - Ulcer to right plantar medial hallux with fat layer exposed. Measurements noted below. The base continues to be a mixture of adherent slough, fibrotic tissue, granular tissue, biofilm, as well as some surrounding hyperkeratotic tissue. There continues to be no purulence, no malodor, no streaking cellulitis, no increase in warmth, no probing to bone, no tracking, and no undermining. Wound Measurements and Assessment WC - Nurse 1 - General Ulcer Measurement Start: 08/16/18 08:15 Freq: Status: Active Protocol: Activity Type Activity Date Activity User E-Sign Co-Sign Detail Recorded Client Recorded Date Recorded By Document 08/30/18 08:05 DL [id number] 08/30/18 08:11 DL 08/30/18 08:05 Wound Center Nurse 1 [Ulcer Assessment] #3 Right Big Toe -Current Size (cm) - Length 0.4 -Current Size (cm) - Width 0.2 -Current Size (cm) - Depth 0.4 -Total Square Cm 0.08 -Photo Taken No -Maximum Distance #2 (cm) 0.2 -Circular Undermining Yes -Exudate Amt None Present -Wound Margin Thickened -Granulation Amt Small (1-33%) -Granulation Quality [place] -Necrosis Amt Small (1-33%) -Necrotic Tissue Type Adherent Slough -Structure Exposed N/A -Texture (Keila-wound Skin Appearance) Callus -Moisture (Keila-wound Skin Appearance Dry/Scaly ) -Color (Keila-wound Skin Appearance) No Abnormality -Temperature (Keila-wound Skin No Abnormality Appearance) (Pt Warm) -Tenderness on Palpation (Keila-wound No Skin Appearance) -Ulcer Cleansing Rinsed/ Irrigated with Saline -Foul Odor after Cleansing No -Anesthetic Used 5% Lidocaine Gel WC - Nurse 2 - General Ulcer CM Notes Start: 08/16/18 08:15 Freq: Status: Active Protocol: Activity Type Activity Date Activity User E-Sign Co-Sign Detail Recorded Client Recorded Date Recorded By Document 08/30/18 08:21 DV [id number] 08/30/18 08:32 DV 08/30/18 08:21 Wound Center Nurse 2 [Procedure/Treatment] -Time 08:22 -Correct Patient Yes -Correct Side, Site, Position Yes -Correct Procedure Yes -Procedure Performed Yes -Type of Procedure Debridement -Clinical Debridement Subcutaneous -Post Debridement Size (cm) - Length 0.6 -Post Debridement Size (cm) - Width 0.5 -Post Debridement Size (cm) - Depth 0.2 -Total Square Cm 0.30 -Wound/Ulcer Outcome Not Healed -Ulcer Cleansing Rinsed/ Irrigated with Saline -Foul Odor after Cleansing No -Bioengineered Tissue No -Bleeding Controlled with Pressure -Offloading Yes -Type of Offloading Wedge Shoe -Treatment Response Procedure Tolerated Well [See Physician Procedure note for Specifics] Pain Scale: 0-10 Numeric [Pain] -Is Patient Pain Free? Yes Musculoskeletal: - - No pain with manipulation of ulcer site Neurological: - - Epicritic sensation grossly absent lower extremity Psych/Mental Status: Normal Affect, Appropriate Debridement Note Post-Debridement Measurements/Treatment WC - Nurse 2 - General Ulcer CM Notes Start: 08/16/18 08:15 Freq: Status: Active Protocol: Activity Type Activity Date Activity User E-Sign Co-Sign Detail Recorded Client Recorded Date Recorded By Document 08/16/18 08:27 DV [id number] 08/16/18 08:31 DV Document 08/23/18 08:24 DV [id number] 08/23/18 08:26 DV Document 08/30/18 08:21 DV [id number] 08/30/18 08:32 DV 08/16/18 08/23/18 08/30/18 08:27 08:24 08:21 Wound Center Nurse 2 #3 Right Big Toe -Time 08:27 08:25 08:22 -Correct Patient Yes Yes Yes -Correct Side, Site, Position Yes Yes Yes -Correct Procedure Yes Yes Yes -Procedure Performed Yes Yes Yes -Type of Procedure Debridement Debridement Debridement -Clinical Debridement Subcutaneous Subcutaneous Subcutaneous -Post Debridement Size (cm) - Length 0.5 0.5 0.6 -Post Debridement Size (cm) - Width 0.3 0.2 0.5 -Post Debridement Size (cm) - Depth 0.2 0.2 0.2 -Total Square Cm 0.15 0.10 0.30 -Wound/Ulcer Outcome Not Healed Not Healed Not Healed -Ulcer Cleansing Rinsed/ Rinsed/ Rinsed/ Irrigated with Irrigated with Irrigated with Saline Saline Saline -Foul Odor after Cleansing No No No -Bioengineered Tissue No No No -Bleeding Controlled with Pressure Pressure Pressure -Offloading No No Yes -Type of Offloading Wedge Shoe -Treatment Response Procedure Procedure Procedure Tolerated Well Tolerated Well Tolerated Well Pain Scale: 0-10 Numeric Is Patient Pain Free? Yes Yes Yes Wound debrided: Right plantar medial hallux Laterality: Right Type of Debridement: Excisional debridement Anesthesia Used: 4% Lidocaine Solution Depth: in the subcutaneous layer Percentage of wound debrided: 100 Instrument Used: #15 blade Tissue Removed: Adherent slough, fibrotic tissue, biofilm, hyperkeratotic tissue Severity: Fat Layer Exposed Amount of bleeding with debridement: Mild Bleeding Controlled with: Pressure Patient tolerated procedure well Assessment/Plan Assessment: Ulcer with fat layer exposed to right plantar medial hallux. DM 2 with neuropathy Plan: Patient was carefully examined and evaluated again today for ulcer to the right hallux. Ulcer site was debrided subcutaneously as noted in the clinical panel again today. Ulcer relatively stable since last week. Once complete, the ulcer site was carefully cleansed and then dressed with a slightly moistened Cindi followed by dry sterile dressing. Patient's is to have dressing changed in this manner daily with the help of his . The patient is to continue with offloading surgical shoe with a dual density insert with offloaded area for right hallux. [facility] new surgical shoe as his old one is wearing out. Patient is to continue to focus pressure to his heel and away from the forefoot/great toe while walking. Patient is continuing to wear his offloading diabetic shoe on the opposite foot. Patient was instructed to keep the offloading surgical shoe on at all times while weightbearing and to do his best to keep as much pressure and weight off his foot as he can while it continues to heal. I also recommended diet high in protein to help optimize ulcer healing potential. The importance of tight glycemic control was again discussed with this patient. Patient says he is currently on weight watchers diet trying to lose weight to take pressure off of his feet as well. The patient was educated on all signs and symptoms of local and systemic infection, and he was instructed to go to the emergency room immediately should he notice any these. All questions were answered to the patient's satisfaction. The patient will follow up at the wound healing center in 1 week to check on progress, or sooner if needed.
[2018-09-06 08:10] VITALS: BP 154/89; PULSE 100; RESP 20; TEMP 36.6; BMI 51.7
--- NOTE | 2018-09-06 08:40 | PCM.WC.PN ---
(1) Ulcer of right foot with fat layer exposed Status: Acute Current Visit: No Code(s): L97.512 - Non-pressure chronic ulcer of other part of right foot with fat layer exposed (2) Type 2 diabetes mellitus with diabetic polyneuropathy Status: Acute Current Visit: No Code(s): E11.42 - Type 2 diabetes mellitus with diabetic polyneuropathy (3) Delayed wound healing Status: Acute Current Visit: No Code(s): T14.8XXD - Other injury of unspecified body region, subsequent encounter (4) Edema, lower extremity Status: Acute Current Visit: No Code(s): R60.0 - Localized edema Type of Wound Chief Complaint: ulcer right hallux History of Wound: This 52 year old diabetic male presents to wound center today for ulcer of his right medial plantar great toe. Patient states that he has been trying to lose weight and has been working out on the treadmill at [employer]. He says this ulcer is in the same area on his left great toe this time that he had healed out earlier in the year on his right great toe. These were both caused the same way. He says after a while, he noticed some callus building up on his left great toe that eventually broke down into an ulcer. He was seen in my office last week and followed up at wound healing center today for continuation of care. Patient has been taking Augmentin as prescribed last week and applying daily cindi dressing changes with the help of his . Patient denies any purulence or extending redness. He currently denies any feelings of nausea, vomiting, fever, or chills. Progress of Wound: Ulcer has shown improvement this week. Patient has been having daily cindi dressing changes with help of . Keeps area offloaded with offloading surgical shoe. Denies fellings of nausea, vomiting, fever, or chills. - Physical Exam Vital Signs Temp Pulse Resp BP 97.8 F 100 20 H 154/89 H 09/06/18 08:10 09/06/18 08:10 09/06/18 08:10 09/06/18 08:10 General: Alert, Oriented x3, Cooperative, No apparent distress Extremities: Capillary Refill Less than 3 Seconds, No Calf Tenderness - Negative Suellen and Santiago signs, Edema - Bilateral lower extremity edema, Peripheral Pulses Normal - DP and PT pulses palpable bilateral Skin: Ulcer/ Wound - Ulcer to right plantar medial hallux with fat layer exposed. Measurements noted below. Slow improvement noted today. The base continues to be a mixture of adherent slough, fibrotic tissue, granular tissue, biofilm, as well as some surrounding hyperkeratotic tissue. There continues to be no purulence, no malodor, no streaking cellulitis, no increase in warmth, no probing to bone, no tracking, and no undermining. Wound Measurements and Assessment WC - Nurse 1 - General Ulcer Measurement Start: 08/16/18 08:15 Freq: Status: Active Protocol: Activity Type Activity Date Activity User E-Sign Co-Sign Detail Recorded Client Recorded Date Recorded By Document 09/06/18 08:10 DL [id number] 09/06/18 08:16 DL 09/06/18 08:10 Wound Center Nurse 1 [Ulcer Assessment] #3 Right Big Toe -Current Size (cm) - Length 0.3 -Current Size (cm) - Width 0.2 -Current Size (cm) - Depth 0.3 -Total Square Cm 0.06 -Photo Taken No -Maximum Distance #2 (cm) 0.2 -Circular Undermining Yes -Exudate Amt None Present -Wound Margin Thickened -Granulation Amt Small (1-33%) -Granulation Quality [place] -Necrosis Amt Small (1-33%) -Necrotic Tissue Type Adherent Slough -Structure Exposed N/A -Texture (Keila-wound Skin Appearance) Callus Scarring -Moisture (Keila-wound Skin Appearance Dry/Scaly ) -Color (Keila-wound Skin Appearance) No Abnormality -Temperature (Keila-wound Skin No Abnormality Appearance) (Pt Warm) -Tenderness on Palpation (Keila-wound No Skin Appearance) -Ulcer Cleansing Rinsed/ Irrigated with Saline -Foul Odor after Cleansing No -Anesthetic Used 5% Lidocaine Gel WC - Nurse 2 - General Ulcer CM Notes Start: 08/16/18 08:15 Freq: Status: Active Protocol: Activity Type Activity Date Activity User E-Sign Co-Sign Detail Recorded Client Recorded Date Recorded By Document 09/06/18 08:24 DV [id number] 09/06/18 08:25 DV 09/06/18 08:24 Wound Center Nurse 2 [Procedure/Treatment] -Time 08:24 -Correct Patient Yes -Correct Side, Site, Position Yes -Correct Procedure Yes -Procedure Performed Yes -Type of Procedure Debridement -Clinical Debridement Subcutaneous -Post Debridement Size (cm) - Length 0.6 -Post Debridement Size (cm) - Width 0.5 -Post Debridement Size (cm) - Depth 0.2 -Total Square Cm 0.30 -Wound/Ulcer Outcome Not Healed -Ulcer Cleansing Rinsed/ Irrigated with Saline -Foul Odor after Cleansing No -Bioengineered Tissue No -Bleeding Controlled with Pressure -Offloading No -Type of Offloading Surgical Shoe -Treatment Response Procedure Tolerated Well [See Physician Procedure note for Specifics] Pain Scale: 0-10 Numeric [Pain] -Is Patient Pain Free? Yes Musculoskeletal: - - No pain with manipulation of ulcer site Neurological: - - Epicritic sensation grossly absent lower extremity Psych/Mental Status: Normal Affect, Appropriate Debridement Note Post-Debridement Measurements/Treatment WC - Nurse 2 - General Ulcer CM Notes Start: 08/16/18 08:15 Freq: Status: Active Protocol: Activity Type Activity Date Activity User E-Sign Co-Sign Detail Recorded Client Recorded Date Recorded By Document 08/16/18 08:27 DV [id number] 08/16/18 08:31 DV Document 08/23/18 08:24 DV [id number] 08/23/18 08:26 DV Document 08/30/18 08:21 DV [id number] 08/30/18 08:32 DV Document 09/06/18 08:24 DV [id number] 09/06/18 08:25 DV 08/16/18 08/23/18 08/30/18 08:27 08:24 08:21 Wound Center Nurse 2 #3 Right Big Toe -Time 08:27 08:25 08:22 -Correct Patient Yes Yes Yes -Correct Side, Site, Position Yes Yes Yes -Correct Procedure Yes Yes Yes -Procedure Performed Yes Yes Yes -Type of Procedure Debridement Debridement Debridement -Clinical Debridement Subcutaneous Subcutaneous Subcutaneous -Post Debridement Size (cm) - Length 0.5 0.5 0.6 -Post Debridement Size (cm) - Width 0.3 0.2 0.5 -Post Debridement Size (cm) - Depth 0.2 0.2 0.2 -Total Square Cm 0.15 0.10 0.30 -Wound/Ulcer Outcome Not Healed Not Healed Not Healed -Ulcer Cleansing Rinsed/ Rinsed/ Rinsed/ Irrigated with Irrigated with Irrigated with Saline Saline Saline -Foul Odor after Cleansing No No No -Bioengineered Tissue No No No -Bleeding Controlled with Pressure Pressure Pressure -Offloading No No Yes -Type of Offloading Wedge Shoe -Treatment Response Procedure Procedure Procedure Tolerated Well Tolerated Well Tolerated Well Pain Scale: 0-10 Numeric Is Patient Pain Free? Yes Yes Yes 09/06/18 08:24 Wound Center Nurse 2 #3 Right Big Toe -Time 08:24 -Correct Patient Yes -Correct Side, Site, Position Yes -Correct Procedure Yes -Procedure Performed Yes -Type of Procedure Debridement -Clinical Debridement Subcutaneous -Post Debridement Size (cm) - Length 0.6 -Post Debridement Size (cm) - Width 0.5 -Post Debridement Size (cm) - Depth 0.2 -Total Square Cm 0.30 -Wound/Ulcer Outcome Not Healed -Ulcer Cleansing Rinsed/ Irrigated with Saline -Foul Odor after Cleansing No -Bioengineered Tissue No -Bleeding Controlled with Pressure -Offloading No -Type of Offloading Surgical Shoe -Treatment Response Procedure Tolerated Well Pain Scale: 0-10 Numeric Is Patient Pain Free? Yes Wound debrided: Right plantar medial hallux Laterality: Right Type of Debridement: Excisional debridement Anesthesia Used: 4% Lidocaine Solution Depth: in the subcutaneous layer Percentage of wound debrided: 100 Instrument Used: #15 blade Tissue Removed: Adherent slough, fibrotic tissue, biofilm, hyperkeratotic tissue Severity: Fat Layer Exposed Amount of bleeding with debridement: Mild Bleeding Controlled with: Pressure Patient tolerated procedure well Assessment/Plan Assessment: Ulcer with fat layer exposed to right plantar medial hallux. DM 2 with neuropathy Plan: Patient was carefully examined and evaluated again today for ulcer to the right hallux. Ulcer site was debrided subcutaneously as noted in the clinical panel again today. Ulcer shows improvement this week. Once complete, the ulcer site was carefully cleansed and then dressed with a slightly moistened Cindi followed by dry sterile dressing. Patient's is to have dressing changed in this manner daily with the help of his . The patient is to continue with offloading surgical shoe with a dual density insert with offloaded area for right hallux. Patient got a new surgical shoe last week as his old one was breaking down. Patient is to continue to focus pressure to his heel and away from the forefoot/great toe while walking. Patient is continuing to wear his offloading diabetic shoe on the opposite foot. Patient was instructed to keep the offloading surgical shoe on at all times while weightbearing and to do his best to keep as much pressure and weight off his foot as he can while it continues to heal. I also recommended diet high in protein to help optimize ulcer healing potential. The importance of tight glycemic control was again discussed with this patient. Patient says he is currently on weight watchers diet trying to lose weight to take pressure off of his feet as well. The patient was educated on all signs and symptoms of local and systemic infection, and he was instructed to go to the emergency room immediately should he notice any these. All questions were answered to the patient's satisfaction. The patient will follow up at the wound healing center in 1 week to check on progress, or sooner if needed.
--- NOTE | 2018-09-06 08:44 | PN.PCM_ITS ---
(1) Ulcer of right foot with fat layer exposed Status: Acute Current Visit: No Code(s): L97.512 - Non-pressure chronic ulcer of other part of right foot with fat layer exposed (2) Type 2 diabetes mellitus with diabetic polyneuropathy Status: Acute Current Visit: No Code(s): E11.42 - Type 2 diabetes mellitus with diabetic polyneuropathy (3) Delayed wound healing Status: Acute Current Visit: No Code(s): T14.8XXD - Other injury of unspecified body region, subsequent encounter (4) Edema, lower extremity Status: Acute Current Visit: No Code(s): R60.0 - Localized edema Type of Wound Chief Complaint: ulcer right hallux History of Wound: This 52 year old diabetic male presents to wound center today for ulcer of his right medial plantar great toe. Patient states that he has been trying to lose weight and has been working out on the treadmill at [employer]. He says this ulcer is in the same area on his left great toe this time that he had healed out earlier in the year on his right great toe. These were both caused the same way. He says after a while, he noticed some callus building up on his left great toe that eventually broke down into an ulcer. He was seen in my office last week and followed up at wound healing center today for continuation of care. Patient has been taking Augmentin as prescribed last week and applying daily cindi dressing changes with the help of his . Patient denies any purulence or extending redness. He currently denies any feelings of nausea, vomiting, fever, or chills. Progress of Wound: Ulcer has shown improvement this week. Patient has been having daily cindi dressing changes with help of . Keeps area offloaded with offloading surgical shoe. Denies fellings of nausea, vomiting, fever, or chills. - Physical Exam Vital Signs Temp Pulse Resp BP 97.8 F 100 20 H 154/89 H 09/06/18 08:10 09/06/18 08:10 09/06/18 08:10 09/06/18 08:10 General: Alert, Oriented x3, Cooperative, No apparent distress Extremities: Capillary Refill Less than 3 Seconds, No Calf Tenderness - Negative Suellen and Santiago signs, Edema - Bilateral lower extremity edema, Peripheral Pulses Normal - DP and PT pulses palpable bilateral Skin: Ulcer/ Wound - Ulcer to right plantar medial hallux with fat layer exposed. Measurements noted below. Slow improvement noted today. The base continues to be a mixture of adherent slough, fibrotic tissue, granular tissue, biofilm, as well as some surrounding hyperkeratotic tissue. There continues to be no purulence, no malodor, no streaking cellulitis, no increase in warmth, no probing to bone, no tracking, and no undermining. Wound Measurements and Assessment WC - Nurse 1 - General Ulcer Measurement Start: 08/16/18 08:15 Freq: Status: Active Protocol: Activity Type Activity Date Activity User E-Sign Co-Sign Detail Recorded Client Recorded Date Recorded By Document 09/06/18 08:10 DL [id number] 09/06/18 08:16 DL 09/06/18 08:10 Wound Center Nurse 1 [Ulcer Assessment] #3 Right Big Toe -Current Size (cm) - Length 0.3 -Current Size (cm) - Width 0.2 -Current Size (cm) - Depth 0.3 -Total Square Cm 0.06 -Photo Taken No -Maximum Distance #2 (cm) 0.2 -Circular Undermining Yes -Exudate Amt None Present -Wound Margin Thickened -Granulation Amt Small (1-33%) -Granulation Quality [place] -Necrosis Amt Small (1-33%) -Necrotic Tissue Type Adherent Slough -Structure Exposed N/A -Texture (Keila-wound Skin Appearance) Callus Scarring -Moisture (Keila-wound Skin Appearance Dry/Scaly ) -Color (Keila-wound Skin Appearance) No Abnormality -Temperature (Keila-wound Skin No Abnormality Appearance) (Pt Warm) -Tenderness on Palpation (Keila-wound No Skin Appearance) -Ulcer Cleansing Rinsed/ Irrigated with Saline -Foul Odor after Cleansing No -Anesthetic Used 5% Lidocaine Gel WC - Nurse 2 - General Ulcer CM Notes Start: 08/16/18 08:15 Freq: Status: Active Protocol: Activity Type Activity Date Activity User E-Sign Co-Sign Detail Recorded Client Recorded Date Recorded By Document 09/06/18 08:24 DV [id number] 09/06/18 08:25 DV 09/06/18 08:24 Wound Center Nurse 2 [Procedure/Treatment] -Time 08:24 -Correct Patient Yes -Correct Side, Site, Position Yes -Correct Procedure Yes -Procedure Performed Yes -Type of Procedure Debridement -Clinical Debridement Subcutaneous -Post Debridement Size (cm) - Length 0.6 -Post Debridement Size (cm) - Width 0.5 -Post Debridement Size (cm) - Depth 0.2 -Total Square Cm 0.30 -Wound/Ulcer Outcome Not Healed -Ulcer Cleansing Rinsed/ Irrigated with Saline -Foul Odor after Cleansing No -Bioengineered Tissue No -Bleeding Controlled with Pressure -Offloading No -Type of Offloading Surgical Shoe -Treatment Response Procedure Tolerated Well [See Physician Procedure note for Specifics] Pain Scale: 0-10 Numeric [Pain] -Is Patient Pain Free? Yes Musculoskeletal: - - No pain with manipulation of ulcer site Neurological: - - Epicritic sensation grossly absent lower extremity Psych/Mental Status: Normal Affect, Appropriate Debridement Note Post-Debridement Measurements/Treatment WC - Nurse 2 - General Ulcer CM Notes Start: 08/16/18 08:15 Freq: Status: Active Protocol: Activity Type Activity Date Activity User E-Sign Co-Sign Detail Recorded Client Recorded Date Recorded By Document 08/16/18 08:27 DV [id number] 08/16/18 08:31 DV Document 08/23/18 08:24 DV [id number] 08/23/18 08:26 DV Document 08/30/18 08:21 DV [id number] 08/30/18 08:32 DV Document 09/06/18 08:24 DV [id number] 09/06/18 08:25 DV 08/16/18 08/23/18 08/30/18 08:27 08:24 08:21 Wound Center Nurse 2 #3 Right Big Toe -Time 08:27 08:25 08:22 -Correct Patient Yes Yes Yes -Correct Side, Site, Position Yes Yes Yes -Correct Procedure Yes Yes Yes -Procedure Performed Yes Yes Yes -Type of Procedure Debridement Debridement Debridement -Clinical Debridement Subcutaneous Subcutaneous Subcutaneous -Post Debridement Size (cm) - Length 0.5 0.5 0.6 -Post Debridement Size (cm) - Width 0.3 0.2 0.5 -Post Debridement Size (cm) - Depth 0.2 0.2 0.2 -Total Square Cm 0.15 0.10 0.30 -Wound/Ulcer Outcome Not Healed Not Healed Not Healed -Ulcer Cleansing Rinsed/ Rinsed/ Rinsed/ Irrigated with Irrigated with Irrigated with Saline Saline Saline -Foul Odor after Cleansing No No No -Bioengineered Tissue No No No -Bleeding Controlled with Pressure Pressure Pressure -Offloading No No Yes -Type of Offloading Wedge Shoe -Treatment Response Procedure Procedure Procedure Tolerated Well Tolerated Well Tolerated Well Pain Scale: 0-10 Numeric Is Patient Pain Free? Yes Yes Yes 09/06/18 08:24 Wound Center Nurse 2 #3 Right Big Toe -Time 08:24 -Correct Patient Yes -Correct Side, Site, Position Yes -Correct Procedure Yes -Procedure Performed Yes -Type of Procedure Debridement -Clinical Debridement Subcutaneous -Post Debridement Size (cm) - Length 0.6 -Post Debridement Size (cm) - Width 0.5 -Post Debridement Size (cm) - Depth 0.2 -Total Square Cm 0.30 -Wound/Ulcer Outcome Not Healed -Ulcer Cleansing Rinsed/ Irrigated with Saline -Foul Odor after Cleansing No -Bioengineered Tissue No -Bleeding Controlled with Pressure -Offloading No -Type of Offloading Surgical Shoe -Treatment Response Procedure Tolerated Well Pain Scale: 0-10 Numeric Is Patient Pain Free? Yes Wound debrided: Right plantar medial hallux Laterality: Right Type of Debridement: Excisional debridement Anesthesia Used: 4% Lidocaine Solution Depth: in the subcutaneous layer Percentage of wound debrided: 100 Instrument Used: #15 blade Tissue Removed: Adherent slough, fibrotic tissue, biofilm, hyperkeratotic tissue Severity: Fat Layer Exposed Amount of bleeding with debridement: Mild Bleeding Controlled with: Pressure Patient tolerated procedure well Assessment/Plan Assessment: Ulcer with fat layer exposed to right plantar medial hallux. DM 2 with neuropathy Plan: Patient was carefully examined and evaluated again today for ulcer to the right hallux. Ulcer site was debrided subcutaneously as noted in the clinical panel again today. Ulcer shows improvement this week. Once complete, the ulcer site was carefully cleansed and then dressed with a slightly moistened Cindi followed by dry sterile dressing. Patient's is to have dressing changed in this manner daily with the help of his . The patient is to continue with offloading surgical shoe with a dual density insert with offloaded area for right hallux. Patient got a new surgical shoe last week as his old one was breaking down. Patient is to continue to focus pressure to his heel and away from the forefoot/great toe while walking. Patient is continuing to wear his offloading diabetic shoe on the opposite foot. Patient was instructed to keep the offloading surgical shoe on at all times while weightbearing and to do his b est to keep as much pressure and weight off his foot as he can while it continues to heal. I also recommended diet high in protein to help optimize ulcer healing potential. The importance of tight glycemic control was again discussed with this patient. Patient says he is currently on weight watchers diet trying to lose weight to take pressure off of his feet as well. The patient was educated on all signs and symptoms of local and systemic infection, and he was instructed to go to the emergency room immediately should he notice any these. All questions were answered to the patient's satisfaction. The patient will follow up at the wound healing center in 1 week to check on progress, or sooner if needed.
== END 2018-09-09 23:59 ==
LOC: WC 08:00
PROVIDERS: Family Provider Family Medicine; PCP Family Medicine; Visit Provider Podiatrist
DX: E11.621 Type 2 diabetes mellitus with foot ulcer (principal); E11.42 Type 2 diabetes mellitus with diabetic polyneuropathy; L97.512 Non-pressure chronic ulcer of other part of right foot with fat layer exposed; R60.0 Localized edema
CPT/HCPCS: 11042

== ENCOUNTER 2018-10-04 08:00 | Outpatient (RCR) | payer BC, SELFPAY ==
[2018-09-10 01:03] VITALS: BP 154/89; PULSE 100; RESP 20; TEMP 36.6
[2018-09-13 08:09] VITALS: BP 158/88; PULSE 101; RESP 16; TEMP 36.1; BMI 51.7
--- NOTE | 2018-09-13 08:56 | PN.PCM_ITS ---
(1) Ulcer of right foot with fat layer exposed Status: Acute Current Visit: No Code(s): L97.512 - Non-pressure chronic ulcer of other part of right foot with fat layer exposed (2) Type 2 diabetes mellitus with diabetic polyneuropathy Status: Acute Current Visit: No Code(s): E11.42 - Type 2 diabetes mellitus with diabetic polyneuropathy (3) Delayed wound healing Status: Acute Current Visit: No Code(s): T14.8XXD - Other injury of unspecified body region, subsequent encounter (4) Edema, lower extremity Status: Acute Current Visit: No Code(s): R60.0 - Localized edema Type of Wound Chief Complaint: ulcer right hallux History of Wound: This 52 year old diabetic male presents to wound center today for ulcer of his right medial plantar great toe. Patient states that he has been trying to lose weight and has been working out on the treadmill at [employer]. He says this ulcer is in the same area on his left great toe this time that he had healed out earlier in the year on his right great toe. These were both caused the same way. He says after a while, he noticed some callus building up on his left great toe that eventually broke down into an ulcer. He was seen in my office last week and followed up at wound healing center today for continuation of care. Patient has been taking Augmentin as prescribed last week and applying daily cindi dressing changes with the help of his . Patient denies any purulence or extending redness. He currently denies any feelings of nausea, vomiting, fever, or chills. Progress of Wound: Stable ulcer. Patient has been having daily cindi dressing changes with help of . Keeps area offloaded with offloading surgical shoe. Denies fellings of nausea, vomiting, fever, or chills. - Physical Exam Vital Signs Temp Pulse Resp BP 96.9 F L 101 H 16 158/88 H 09/13/18 08:09 09/13/18 08:09 09/13/18 08:09 09/13/18 08:09 General: Alert, Oriented x3, Cooperative, No apparent distress Extremities: Capillary Refill Less than 3 Seconds, No Calf Tenderness - Negative Suellen and Santiago signs, Edema - Bilateral lower extremity edema, Peripheral Pulses Normal - DP and PT pulses palpable bilateral Skin: Ulcer/ Wound - Ulcer to right plantar medial hallux with fat layer exposed. Measurements noted below. Ulcer stable. The base continues to be a mixture of adherent slough, fibrotic tissue, granular tissue, biofilm, as well as some surrounding hyperkeratotic tissue. There continues to be no purulence, no malodor, no streaking cellulitis, no increase in warmth, no probing to bone, no tracking, and no undermining. Wound Measurements and Assessment WC - Nurse 1 - General Ulcer Measurement Start: 09/13/18 08:09 Freq: Status: Active Protocol: Activity Type Activity Date Activity User E-Sign Co-Sign Detail Recorded Client Recorded Date Recorded By Document 09/13/18 08:09 MW [id number] 09/13/18 08:16 MW 09/13/18 08:09 Wound Center Nurse 1 [Ulcer Assessment] #3 Right Big Toe -Combined with other wound No -Current Size (cm) - Length 0.4 -Current Size (cm) - Width 0.2 -Current Size (cm) - Depth 0.2 -Total Square Cm 0.08 -Photo Taken No -Epithelialization None Present -Tunneling No -Undermining/Tunneling No -Circular Undermining No -Exudate Amt None Present -Wound Margin Distinct, Outline Attached -Granulation Amt Small (1-33%) -Granulation Quality [place] -Slough/Fibrin Yes -Necrosis Amt Medium (34-66%) -Necrotic Tissue Type Adherent Slough -Structure Exposed N/A -Texture (Keila-wound Skin Appearance) Assessed Callus -Moisture (Keila-wound Skin Appearance Assessed ) Dry/Scaly -Color (Keila-wound Skin Appearance) No Abnormality Assessed -Temperature (Keila-wound Skin No Abnormality Appearance) (Pt Warm) -Tenderness on Palpation (Keila-wound Yes Skin Appearance) -Ulcer Cleansing Rinsed/ Irrigated with Saline -Foul Odor after Cleansing No -Anesthetic Used 4% Lidocaine Solution [Edema Assessment] -Lower Limb Edema Present No WC - Nurse 2 - General Ulcer CM Notes Start: 09/13/18 08:09 Freq: Status: Active Protocol: Activity Type Activity Date Activity User E-Sign Co-Sign Detail Recorded Client Recorded Date Recorded By Document 09/13/18 08:26 DV [id number] 09/13/18 08:29 DV 09/13/18 08:26 Wound Center Nurse 2 [Procedure/Treatment] #3 Right Big Toe -Time 08:27 -Correct Patient Yes -Correct Side, Site, Position Yes -Correct Procedure Yes -Procedure Performed Yes -Type of Procedure Debridement -Clinical Debridement Subcutaneous -Post Debridement Size (cm) - Length 0.6 -Post Debridement Size (cm) - Width 0.3 -Post Debridement Size (cm) - Depth 0.2 -Total Square Cm 0.18 -Wound/Ulcer Outcome Not Healed -Ulcer Cleansing Rinsed/ Irrigated with Saline -Foul Odor after Cleansing No -Bioengineered Tissue No -Bleeding Controlled with Pressure -Offloading No -Type of Offloading Surgical Shoe -Treatment Response Procedure Tolerated Well [See Physician Procedure note for Specifics] Pain Scale: 0-10 Numeric [Pain] -Is Patient Pain Free? Yes Musculoskeletal: - - No pain with manipulation of ulcer site Neurological: - - Epicritic sensation grossly absent to lower extremity Psych/Mental Status: Normal Affect, Appropriate Debridement Note Post-Debridement Measurements/Treatment WC - Nurse 2 - General Ulcer CM Notes Start: 09/13/18 08:09 Freq: Status: Active Protocol: Activity Type Activity Date Activity User E-Sign Co-Sign Detail Recorded Client Recorded Date Recorded By Document 09/13/18 08:26 DV [id number] 09/13/18 08:29 DV 09/13/18 08:26 Wound Center Nurse 2 #3 Right Big Toe -Time 08:27 -Correct Patient Yes -Correct Side, Site, Position Yes -Correct Procedure Yes -Procedure Performed Yes -Type of Procedure Debridement -Clinical Debridement Subcutaneous -Post Debridement Size (cm) - Length 0.6 -Post Debridement Size (cm) - Width 0.3 -Post Debridement Size (cm) - Depth 0.2 -Total Square Cm 0.18 -Wound/Ulcer Outcome Not Healed -Ulcer Cleansing Rinsed/ Irrigated with Saline -Foul Odor after Cleansing No -Bioengineered Tissue No -Bleeding Controlled with Pressure -Offloading No -Type of Offloading Surgical Shoe -Treatment Response Procedure Tolerated Well Pain Scale: 0-10 Numeric Is Patient Pain Free? Yes Wound debrided: Right plantar medial hallux Laterality: Right Type of Debridement: Excisional debridement Anesthesia Used: 4% Lidocaine Solution Depth: in the subcutaneous layer Percentage of wound debrided: 100 Instrument Used: #15 blade Tissue Removed: Adherent slough, fibrotic tissue, biofilm, hyperkeratotic tissue Severity: Fat Layer Exposed Amount of bleeding with debridement: Mild Bleeding Controlled with: Pressure Patient tolerated procedure well Assessment/Plan Assessment: Ulcer with fat layer exposed to right plantar medial hallux. DM 2 with neuropathy Plan: Patient was carefully examined and evaluated again today for ulcer to the right hallux. Ulcer site was debrided subcutaneously as noted in the clinical panel again today. Ulcer stable. Once complete, the ulcer site was carefully cleansed and then dressed with a slightly moistened Cindi followed by dry sterile dressing. Patient's is to have dressing changed in this manner daily with the help of his . The patient is to continue with offloading surgical shoe with a dual density insert with offloaded area for right hallux. Patient is to continue to focus pressure to his heel and away from the forefoot/great toe while walking. Patient is continuing to wear his offloading diabetic shoe on the opposite foot. Patient was instructed to keep the offloading surgical shoe on at all times while weightbearing and to do his best to keep as much pressure and weight off his foot as he can while it continues to heal. I also recommended diet high in protein to help optimize ulcer healing potential. The importance of tight glycemic control was again discussed with this patient. Patient says he is currently on weight watchers diet trying to lose weight to take pressure off of his feet as well. The patient was educated on all signs and symptoms of local and systemic infection, and he was instructed to go to the emergency room immediately should he notice any these. All questions were answered to the patient's satisfaction. The patient will follow up at the wound healing center in 1 week to check on progress, or sooner if needed.
[2018-09-20 08:48] VITALS: BP 131/70; PULSE 97; RESP 18; TEMP 37.4; BMI 51.7
--- NOTE | 2018-09-20 10:06 | PCM.WC.PN ---
(1) Ulcer of right foot with fat layer exposed Status: Acute Current Visit: No Code(s): L97.512 - Non-pressure chronic ulcer of other part of right foot with fat layer exposed (2) Type 2 diabetes mellitus with diabetic polyneuropathy Status: Acute Current Visit: No Code(s): E11.42 - Type 2 diabetes mellitus with diabetic polyneuropathy (3) Delayed wound healing Status: Acute Current Visit: No Code(s): T14.8XXD - Other injury of unspecified body region, subsequent encounter (4) Edema, lower extremity Status: Acute Current Visit: No Code(s): R60.0 - Localized edema Type of Wound Chief Complaint: ulcer right hallux History of Wound: This 52 year old diabetic male presents to wound center today for ulcer of his right medial plantar great toe. Patient states that he has been trying to lose weight and has been working out on the treadmill at [employer]. He says this ulcer is in the same area on his left great toe this time that he had healed out earlier in the year on his right great toe. These were both caused the same way. He says after a while, he noticed some callus building up on his left great toe that eventually broke down into an ulcer. He was seen in my office last week and followed up at wound healing center today for continuation of care. Patient has been taking Augmentin as prescribed last week and applying daily lluvia dressing changes with the help of his . Patient denies any purulence or extending redness. He currently denies any feelings of nausea, vomiting, fever, or chills. Progress of Wound: Minor ulcer improvement. Patient has been having daily lluvia dressing changes with help of . Keeps area offloaded with offloading surgical shoe. Denies fellings of nausea, vomiting, fever, or chills. - Physical Exam Vital Signs Temp Pulse Resp BP 99.3 F H 97 18 131/70 H 09/20/18 08:48 09/20/18 08:48 09/20/18 08:48 09/20/18 08:48 General: Alert, Oriented x3, Cooperative, No apparent distress Extremities: Capillary Refill Less than 3 Seconds, No Calf Tenderness - Negative Suellen and Santiago signs, Edema - Bilateral lower extremity edema, Peripheral Pulses Normal - DP and PT pulses palpable bilateral Skin: Ulcer/ Wound - Ulcer to right plantar medial hallux with fat layer exposed. Measurements noted below. Ulcer shows very slight improvement this week. The base continues to be a mixture of adherent slough, fibrotic tissue, granular tissue, biofilm, as well as some surrounding hyperkeratotic tissue. There continues to be no purulence, no malodor, no streaking cellulitis, no increase in warmth, no probing to bone, no tracking, and no undermining. Wound Measurements and Assessment WC - Nurse 1 - General Ulcer Measurement Start: 09/13/18 08:09 Freq: Status: Active Protocol: Activity Type Activity Date Activity User E-Sign Co-Sign Detail Recorded Client Recorded Date Recorded By Document 09/20/18 08:48 AN [id number] 09/20/18 09:02 AN 09/20/18 08:48 Wound Center Nurse 1 [Ulcer Assessment] #3 Right Big Toe -Current Size (cm) - Length 0.4 -Current Size (cm) - Width 0.2 -Current Size (cm) - Depth 0.2 -Total Square Cm 0.08 -Date of Last Picture (Recall this 09/20/18 field) -Photo Taken Yes -Epithelialization None Present -Tunneling No -Undermining/Tunneling No -Circular Undermining No -Classification - Thickness Full Thickness without Exposed Support Structure -Exudate Amt Small -Exudate Type Serous -Wound Margin Distinct, Outline Attached -Granulation Amt Large (67-100%) -Granulation Quality Varina -Slough/Fibrin No -Necrosis Amt None Present (0 %) -Necrotic Tissue Type Adherent Slough -Structure Exposed None/Limited to Skin Breakdown -Texture (Keila-wound Skin Appearance) Assessed Callus -Moisture (Keila-wound Skin Appearance Assessed ) -Color (Keila-wound Skin Appearance) Assessed -Temperature (Keila-wound Skin No Abnormality Appearance) (Pt Warm) -Tenderness on Palpation (Keila-wound No Skin Appearance) -Ulcer Cleansing Rinsed/ Irrigated with Saline -Foul Odor after Cleansing No -Anesthetic Used 4% Lidocaine Solution KEYONNA - Nurse 2 - General Ulcer CM Notes Start: 09/13/18 08:09 Freq: Status: Active Protocol: Activity Type Activity Date Activity User E-Sign Co-Sign Detail Recorded Client Recorded Date Recorded By Document 09/20/18 09:15 DV [id number] 09/20/18 09:16 DV 09/20/18 09:15 Wound Center Nurse 2 [Procedure/Treatment] -Time 09:15 -Correct Patient Yes -Correct Side, Site, Position Yes -Correct Procedure Yes -Procedure Performed Yes -Type of Procedure Debridement -Clinical Debridement Subcutaneous -Post Debridement Size (cm) - Length 0.5 -Post Debridement Size (cm) - Width 0.2 -Post Debridement Size (cm) - Depth 0.2 -Total Square Cm 0.10 -Wound/Ulcer Outcome Not Healed -Ulcer Cleansing Rinsed/ Irrigated with Saline -Foul Odor after Cleansing No -Bioengineered Tissue No -Bleeding Controlled with Pressure -Offloading Yes -Type of Offloading Surgical Shoe -Treatment Response Procedure Tolerated Well [See Physician Procedure note for Specifics] Pain Scale: 0-10 Numeric [Pain] -Is Patient Pain Free? Yes Musculoskeletal: No Tenderness to Palpation of Joints or Extremities, - - No tenderness with manipulation of ulcer site. Slightly contracted digits 2 through 5 bilateral Neurological: - - Epicritic sensation grossly absent to lower extremity bilateral. Protective sensation absent to all 10 pedal sites tested with a 5.07 [place] monofilament bilateral. Psych/Mental Status: Normal Affect, Appropriate Debridement Note Post-Debridement Measurements/Treatment WC - Nurse 2 - General Ulcer CM Notes Start: 09/13/18 08:09 Freq: Status: Active Protocol: Activity Type Activity Date Activity User E-Sign Co-Sign Detail Recorded Client Recorded Date Recorded By Document 09/13/18 08:26 DV [id number] 09/13/18 08:29 DV Document 09/20/18 09:15 DV [id number] 09/20/18 09:16 DV 09/13/18 09/20/18 08:26 09:15 Wound Center Nurse 2 #3 Right Big Toe -Time 08:27 09:15 -Correct Patient Yes Yes -Correct Side, Site, Position Yes Yes -Correct Procedure Yes Yes -Procedure Performed Yes Yes -Type of Procedure Debridement Debridement -Clinical Debridement Subcutaneous Subcutaneous -Post Debridement Size (cm) - Length 0.6 0.5 -Post Debridement Size (cm) - Width 0.3 0.2 -Post Debridement Size (cm) - Depth 0.2 0.2 -Total Square Cm 0.18 0.10 -Wound/Ulcer Outcome Not Healed Not Healed -Ulcer Cleansing Rinsed/ Rinsed/ Irrigated with Irrigated with Saline Saline -Foul Odor after Cleansing No No -Bioengineered Tissue No No -Bleeding Controlled with Pressure Pressure -Offloading No Yes -Type of Offloading Surgical Shoe Surgical Shoe -Treatment Response Procedure Procedure Tolerated Well Tolerated Well Pain Scale: 0-10 Numeric Is Patient Pain Free? Yes Yes Wound debrided: Right plantar medial hallux Laterality: Right Type of Debridement: Excisional debridement Anesthesia Used: 4% Lidocaine Solution Depth: in the subcutaneous layer Percentage of wound debrided: 100 Instrument Used: #15 blade, - - Tissue nipper Tissue Removed: Adherent slough, fibrotic tissue, biofilm, hyperkeratotic tissue Severity: Fat Layer Exposed Amount of bleeding with debridement: Mild Bleeding Controlled with: Pressure Patient tolerated procedure well Assessment/Plan Assessment: Ulcer with fat layer exposed to right plantar medial hallux. DM 2 with neuropathy Plan: Patient was carefully examined and evaluated again today for ulcer to the right hallux. Ulcer site was debrided subcutaneously as noted in the clinical panel again today. Ulcer shows slight improvement this week. Once complete, the ulcer site was carefully cleansed and then dressed with a slightly moistened Lluvia followed by dry sterile dressing. Patient's is to have dressing changed in this manner daily with the help of his . The patient is to continue with offloading surgical shoe with a dual density insert with offloaded area for right hallux. Patient is to continue to focus pressure to his heel and away from the forefoot/great toe while walking. Patient is continuing to wear his offloading diabetic shoe on the opposite foot. Patient was instructed to keep the offloading surgical shoe on at all times while weightbearing and to do his best to keep as much pressure and weight off his foot as he can while it continues to heal. I also recommended diet high in protein to help optimize ulcer healing potential. The importance of tight glycemic control was again discussed with this patient. Patient says he is currently on weight watchers diet trying to lose weight to take pressure off of his feet as well. Comprehensive diabetic foot exam was performed during patient's visit today as well. Patient will be measured for new pair of diabetic shoes today at [facility]. These are indicated due to patient's diabetic statues with neuropathy as well as history of ulceration to bilateral hallux as well as slightly contracted lesser digits bilateral. The patient was educated on all signs and symptoms of local and systemic infection, and he was instructed to go to the emergency room immediately should he notice any these. All questions were answered to the patient's satisfaction. The patient will follow up at the wound healing center in 1 week to check on progress, or sooner if needed.
--- NOTE | 2018-09-27 08:36 | PN.PCM_ITS ---
(1) Ulcer of right foot with fat layer exposed Status: Acute Current Visit: No Code(s): L97.512 - Non-pressure chronic ulcer of other part of right foot with fat layer exposed (2) Type 2 diabetes mellitus with diabetic polyneuropathy Status: Acute Current Visit: No Code(s): E11.42 - Type 2 diabetes mellitus with diabetic polyneuropathy (3) Delayed wound healing Status: Acute Current Visit: No Code(s): T14.8XXD - Other injury of unspecified body region, subsequent encounter (4) Edema, lower extremity Status: Acute Current Visit: No Code(s): R60.0 - Localized edema Type of Wound Chief Complaint: ulcer right hallux History of Wound: This 52 year old diabetic male presents to wound center today for ulcer of his right medial plantar great toe. Patient states that he has been trying to lose weight and has been working out on the treadmill at [employer]. He says this ulcer is in the same area on his left great toe this time that he had healed out earlier in the year on his right great toe. These were both caused the same way. He says after a while, he noticed some callus building up on his left great toe that eventually broke down into an ulcer. He was seen in my office last week and followed up at wound healing center today for continuation of care. Patient has been taking Augmentin as prescribed last week and applying daily lluvia dressing changes with the help of his . Patient denies any purulence or extending redness. He currently denies any feelings of nausea, vomiting, fever, or chills. Progress of Wound: Improvement noted. Patient has been having daily lluvia dressing changes with help of . Keeps area offloaded with offloading surgical shoe. Denies fellings of nausea, vomiting, fever, or chills. - Physical Exam Vital Signs Temp Pulse Resp BP 99.3 F H 97 18 131/70 H 09/20/18 08:48 09/20/18 08:48 09/20/18 08:48 09/20/18 08:48 General: Alert, Oriented x3, Cooperative, No apparent distress Extremities: Capillary Refill Less than 3 Seconds, No Calf Tenderness, Edema - Negative Suellen and Santiago signs bilateral lower extremity edema, Peripheral Pulses Normal - DP and PT pulses palpable bilateral Skin: Ulcer/ Wound - Ulcer to right plantar medial hallux with fat layer exposed. Measurements noted below. Still improving. The base continues to be a mixture of adherent slough, fibrotic tissue, granular tissue, biofilm, as well as some surrounding hyperkeratotic tissue. There continues to be no purulence, no malodor, no streaking cellulitis, no increase in warmth, no probing to bone, no tracking, and no undermining. Wound Measurements and Assessment - Nurse 2 - General Ulcer CM Notes Start: 09/13/18 08:09 Freq: Status: Active Protocol: Activity Type Activity Date Activity User E-Sign Co-Sign Detail Recorded Client Recorded Date Recorded By Document 09/27/18 08:24 DV [id number] 09/27/18 08:28 DV 09/27/18 08:24 Wound Center Nurse 2 [Procedure/Treatment] #3 Right Big Toe -Time 08:24 -Correct Patient Yes -Correct Side, Site, Position Yes -Correct Procedure Yes -Procedure Performed Yes -Type of Procedure Debridement -Clinical Debridement Subcutaneous -Post Debridement Size (cm) - Length 0.4 -Post Debridement Size (cm) - Width 0.2 -Post Debridement Size (cm) - Depth 0.1 -Total Square Cm 0.08 -Wound/Ulcer Outcome Not Healed -Ulcer Cleansing Rinsed/ Irrigated with Saline -Foul Odor after Cleansing No -Bioengineered Tissue No -Bleeding Controlled with Pressure -Offloading Yes -Type of Offloading Surgical Shoe -Treatment Response Procedure Tolerated Well [See Physician Procedure note for Specifics] Pain Scale: 0-10 Numeric [Pain] -Is Patient Pain Free? Yes Musculoskeletal: No Tenderness to Palpation of Joints or Extremities, - - No tenderness with manipulation of ulcer site Neurological: - - Epicritic sensation grossly absent lower extremity bilateral Psych/Mental Status: Normal Affect, Appropriate Debridement Note Post-Debridement Measurements/Treatment - Nurse 2 - General Ulcer CM Notes Start: 09/13/18 08:09 Freq: Status: Active Protocol: Activity Type Activity Date Activity User E-Sign Co-Sign Detail Recorded Client Recorded Date Recorded By Document 09/13/18 08:26 DV [id number] 09/13/18 08:29 DV Document 09/20/18 09:15 DV [id number] 09/20/18 09:16 DV Document 09/27/18 08:24 DV [id number] 09/27/18 08:28 DV 09/13/18 09/20/18 09/27/18 08:26 09:15 08:24 Wound Center Nurse 2 #3 Right Big Toe -Time 08:27 09:15 08:24 -Correct Patient Yes Yes Yes -Correct Side, Site, Position Yes Yes Yes -Correct Procedure Yes Yes Yes -Procedure Performed Yes Yes Yes -Type of Procedure Debridement Debridement Debridement -Clinical Debridement Subcutaneous Subcutaneous Subcutaneous -Post Debridement Size (cm) - Length 0.6 0.5 0.4 -Post Debridement Size (cm) - Width 0.3 0.2 0.2 -Post Debridement Size (cm) - Depth 0.2 0.2 0.1 -Total Square Cm 0.18 0.10 0.08 -Wound/Ulcer Outcome Not Healed Not Healed Not Healed -Ulcer Cleansing Rinsed/ Rinsed/ Rinsed/ Irrigated with Irrigated with Irrigated with Saline Saline Saline -Foul Odor after Cleansing No No No -Bioengineered Tissue No No No -Bleeding Controlled with Pressure Pressure Pressure -Offloading No Yes Yes -Type of Offloading Surgical Shoe Surgical Shoe Surgical Shoe -Treatment Response Procedure Procedure Procedure Tolerated Well Tolerated Well Tolerated Well Pain Scale: 0-10 Numeric Is Patient Pain Free? Yes Yes Yes Wound debrided: Right plantar medial hallux Laterality: Right Type of Debridement: Excisional debridement Anesthesia Used: 4% Lidocaine Solution Depth: in the subcutaneous layer Percentage of wound debrided: 100 Instrument Used: #15 blade Tissue Removed: Adherent slough, fibrin, biofilm, hyperkeratotic tissue Severity: Fat Layer Exposed Amount of bleeding with debridement: Mild Bleeding Controlled with: Pressure Patient tolerated procedure well Assessment/Plan Assessment: Ulcer with fat layer exposed to right plantar medial hallux. DM 2 with neuropathy Plan: Patient was carefully examined and evaluated again today for ulcer to the right hallux. Ulcer site was debrided subcutaneously as noted in the clinical panel again today. Ulcer shows slight improvement this week. Once complete, the ulcer site was carefully cleansed and then dressed with a slightly moistened Lluvia followed by dry sterile dressing. Patient is to continue to have dressings changed in this manner daily with the help of his . The patient is to continue with offloading surgical shoe with a dual density insert with offloaded area for right hallux. Patient is to continue to focus pressure to his heel and away from the forefoot/great toe while walking. Patient is continuing to wear his offloading diabetic shoe on the opposite foot. Patient was instructed to keep the offloading surgical shoe on at all times while weightbearing and to do his best to keep as much pressure and weight off his foot as he can while it continues to heal. I also recommended diet high in protein to help optimize ulcer healing potential. The importance of tight glycemic control was again discussed with this patient. Patient says he is currently on weight watchers diet trying to lose weight to take pressure off of his feet as well. The patient was educated on all signs and symptoms of local and systemic infection, and he was instructed to go to the emergency room immediately should he notice any these. All questions were answered to the patient's satisfaction. The patient will follow up at the wound healing center in 1 week to check on progress, or sooner if needed.
[2018-09-27 08:49] VITALS: BP 168/80; PULSE 92; RESP 18; TEMP 37.4; BMI 51.7
[2018-10-04 08:08] VITALS: BP 148/68; PULSE 90; RESP 18; TEMP 36.1; BMI 51.7
--- NOTE | 2018-10-04 08:28 | PN.PCM_ITS ---
(1) Ulcer of right foot with fat layer exposed Status: Acute Current Visit: No Code(s): L97.512 - Non-pressure chronic ulcer of other part of right foot with fat layer exposed (2) Type 2 diabetes mellitus with diabetic polyneuropathy Status: Acute Current Visit: No Code(s): E11.42 - Type 2 diabetes mellitus with diabetic polyneuropathy (3) Delayed wound healing Status: Acute Current Visit: No Code(s): T14.8XXD - Other injury of unspecified body region, subsequent encounter (4) Edema, lower extremity Status: Acute Current Visit: No Code(s): R60.0 - Localized edema Type of Wound Chief Complaint: ulcer right hallux History of Wound: This 52 year old diabetic male presents to wound center today for ulcer of his right medial plantar great toe. Patient states that he has been trying to lose weight and has been working out on the treadmill at [employer]. He says this ulcer is in the same area on his left great toe this time that he had healed out earlier in the year on his right great toe. These were both caused the same way. He says after a while, he noticed some callus building up on his left great toe that eventually broke down into an ulcer. He was seen in my office last week and followed up at wound healing center today for continuation of care. Patient has been taking Augmentin as prescribed last week and applying daily cindi dressing changes with the help of his . Patient denies any purulence or extending redness. He currently denies any feelings of nausea, vomiting, fever, or chills. Progress of Wound: Improvement noted again. Patient has been having daily cindi dressing changes with help of . Keeps area offloaded with offloading surgical shoe. Denies fellings of nausea, vomiting, fever, or chills. - Physical Exam Vital Signs Temp Pulse Resp BP 97.0 F L 90 18 148/68 H 10/04/18 08:08 10/04/18 08:08 10/04/18 08:08 10/04/18 08:08 General: Alert, Oriented x3, Cooperative, No apparent distress Extremities: Capillary Refill Less than 3 Seconds, No Calf Tenderness - Negative Suellen and Santiago signs, Edema - Bilateral lower extremity edema, Peripheral Pulses Normal - DP and PT pulses palpable bilateral Skin: Ulcer/ Wound - Ulcer to right plantar medial hallux with fat layer exposed. Measurements noted below. The base continues to be a mixture of adherent slough, fibrotic tissue, granular tissue, as well as some surrounding hyperkeratotic tissue. There continues to be no purulence, no malodor, no streaking cellulitis, no increase in warmth, no probing to bone, no tracking, and no undermining. Wound Measurements and Assessment WC - Nurse 1 - General Ulcer Measurement Start: 09/13/18 08:09 Freq: Status: Active Protocol: Activity Type Activity Date Activity User E-Sign Co-Sign Detail Recorded Client Recorded Date Recorded By Document 10/04/18 08:08 AK [email or web address] 10/04/18 08:15 AK 10/04/18 08:08 Wound Center Nurse 1 [Ulcer Assessment] #3 Right Big Toe -Combined with other wound No -Current Size (cm) - Length 0.1 -Current Size (cm) - Width 0.1 -Current Size (cm) - Depth 0.1 -Total Square Cm 0.01 -Photo Taken No -Epithelialization Large 67-100% -Tunneling No -Exudate Amt None Present -Wound Margin Thickened & Rolled Under -Granulation Amt Large (67-100%) -Granulation Quality Red -Texture (Keila-wound Skin Appearance) Assessed Callus -Moisture (Keila-wound Skin Appearance Assessed ) -Temperature (Keila-wound Skin No Abnormality Appearance) (Pt Warm) -Tenderness on Palpation (Keila-wound No Skin Appearance) -Ulcer Cleansing Rinsed/ Irrigated with Saline -Foul Odor after Cleansing No -Anesthetic Used 4% Lidocaine Solution Musculoskeletal: No Tenderness to Palpation of Joints or Extremities, - - No tenderness with manipulation of ulcer site Neurological: - - Epicritic sensation grossly absent to lower extremity bilateral Psych/Mental Status: Normal Affect, Appropriate Debridement Note Post-Debridement Measurements/Treatment WC - Nurse 2 - General Ulcer CM Notes Start: 09/13/18 08:09 Freq: Status: Active Protocol: Activity Type Activity Date Activity User E-Sign Co-Sign Detail Recorded Client Recorded Date Recorded By Document 09/13/18 08:26 DV [id number] 09/13/18 08:29 DV Document 09/20/18 09:15 DV [id number] 09/20/18 09:16 DV Document 09/27/18 08:24 DV [id number] 09/27/18 08:28 DV 09/13/18 09/20/18 09/27/18 08:26 09:15 08:24 Wound Center Nurse 2 #3 Right Big Toe -Time 08:27 09:15 08:24 -Correct Patient Yes Yes Yes -Correct Side, Site, Position Yes Yes Yes -Correct Procedure Yes Yes Yes -Procedure Performed Yes Yes Yes -Type of Procedure Debridement Debridement Debridement -Clinical Debridement Subcutaneous Subcutaneous Subcutaneous -Post Debridement Size (cm) - Length 0.6 0.5 0.4 -Post Debridement Size (cm) - Width 0.3 0.2 0.2 -Post Debridement Size (cm) - Depth 0.2 0.2 0.1 -Total Square Cm 0.18 0.10 0.08 -Wound/Ulcer Outcome Not Healed Not Healed Not Healed -Ulcer Cleansing Rinsed/ Rinsed/ Rinsed/ Irrigated with Irrigated with Irrigated with Saline Saline Saline -Foul Odor after Cleansing No No No -Bioengineered Tissue No No No -Bleeding Controlled with Pressure Pressure Pressure -Offloading No Yes Yes -Type of Offloading Surgical Shoe Surgical Shoe Surgical Shoe -Treatment Response Procedure Procedure Procedure Tolerated Well Tolerated Well Tolerated Well Pain Scale: 0-10 Numeric Is Patient Pain Free? Yes Yes Yes Wound debrided: Right plantar medial hallux Laterality: Right Type of Debridement: Excisional debridement Anesthesia Used: 4% Lidocaine Solution Depth: in the subcutaneous layer Percentage of wound debrided: 100 Instrument Used: #15 blade Tissue Removed: Adherent slough, fibrin, hyperkeratotic tissue Severity: Fat Layer Exposed Amount of bleeding with debridement: Mild Bleeding Controlled with: Pressure Patient tolerated procedure well Assessment/Plan Assessment: Ulcer with fat layer exposed to right plantar medial hallux. DM 2 with neuropathy Plan: Patient was carefully examined and evaluated again today for ulcer to the right hallux. Ulcer site was debrided subcutaneously as noted in the clinical panel again today. Once complete, the ulcer site was carefully cleansed and then dressed with a slightly moistened Cindi followed by dry sterile dressing. Patient is to continue to have dressings changed in this manner daily with the help of his . The patient is to continue with offloading surgical shoe with a dual density insert with offloaded area for right hallux. Patient is to continue to focus pressure to his heel and away from the forefoot/great toe while walking. Patient is continuing to wear his offloading diabetic shoe on the opposite foot. Patient was instructed to keep the offloading surgical shoe on at all times while weightbearing and to do his best to keep as much pressure and weight off his foot as he can while it continues to heal. I also recommended diet high in protein to help optimize ulcer healing potential. The importance of tight glycemic control was again discussed with this patient. The patient was educated on all signs and symptoms of local and systemic infection, and he was instructed to go to the emergency room immediately should he notice any these. All questions were answered to the patient's satisfaction. The patient will follow up at the wound healing center in 1 week to check on progress, or sooner if needed.
== END 2018-10-09 23:59 ==
LOC: WC 08:00
PROVIDERS: Family Provider Family Medicine; PCP Family Medicine; Visit Provider Podiatrist
DX: E11.621 Type 2 diabetes mellitus with foot ulcer (principal); E11.42 Type 2 diabetes mellitus with diabetic polyneuropathy; R60.0 Localized edema; L97.512 Non-pressure chronic ulcer of other part of right foot with fat layer exposed
CPT/HCPCS: 11042

== ENCOUNTER 2018-11-01 08:00 | Outpatient (RCR) | payer BC, SELFPAY ==
[2018-10-10 01:09] VITALS: BP 148/68; PULSE 90; RESP 18; TEMP 36.1
[2018-10-11 08:18] VITALS: BP 149/83; PULSE 93; RESP 18; TEMP 36.8; BMI 51.7
--- NOTE | 2018-10-11 09:36 | PCM.WC.PN ---
(1) Type 2 diabetes mellitus with diabetic polyneuropathy Status: Acute Current Visit: No Code(s): E11.42 - Type 2 diabetes mellitus with diabetic polyneuropathy (2) Delayed wound healing Status: Acute Current Visit: No Code(s): T14.8XXD - Other injury of unspecified body region, subsequent encounter (3) Edema, lower extremity Status: Acute Current Visit: No Code(s): R60.0 - Localized edema (4) Ulcer of right foot with fat layer exposed Status: Acute Current Visit: No Code(s): L97.512 - Non-pressure chronic ulcer of other part of right foot with fat layer exposed Type of Wound Chief Complaint: ulcer right hallux History of Wound: This 52 year old diabetic male presents to wound center today for ulcer of his right medial plantar great toe. Patient states that he has been trying to lose weight and has been working out on the treadmill at [employer]. He says this ulcer is in the same area on his left great toe this time that he had healed out earlier in the year on his right great toe. These were both caused the same way. He says after a while, he noticed some callus building up on his left great toe that eventually broke down into an ulcer. He was seen in my office last week and followed up at wound healing center today for continuation of care. Patient has been taking Augmentin as prescribed last week and applying daily cindi dressing changes with the help of his . Patient denies any purulence or extending redness. He currently denies any feelings of nausea, vomiting, fever, or chills. Progress of Wound: Ulcer stable. Patient has been having daily cindi dressing changes with help of . Keeps area offloaded with offloading surgical shoe. Denies fellings of nausea, vomiting, fever, or chills. - Physical Exam Vital Signs Temp Pulse Resp BP 98.2 F 93 18 149/83 H 10/11/18 08:18 10/11/18 08:18 10/11/18 08:18 10/11/18 08:18 General: Alert, Oriented x3, Cooperative, No apparent distress Extremities: Capillary Refill Less than 3 Seconds, No Calf Tenderness - Negative Suellen and Santiago signs, Edema - Bilateral lower extremity edema, Peripheral Pulses Normal - DP and PT pulses palpable bilateral Skin: Ulcer/ Wound - Ulcer to right plantar medial hallux with fat layer exposed. Measurements noted below. The base continues to be a mixture of adherent slough, fibrotic tissue, granular tissue, as well as some surrounding hyperkeratotic tissue. There continues to be no purulence, no malodor, no streaking cellulitis, no increase in warmth, no probing to bone, no tracking, and no undermining. Wound Measurements and Assessment WC - Nurse 1 - General Ulcer Measurement Start: 10/11/18 08:18 Freq: Status: Active Protocol: Activity Type Activity Date Activity User E-Sign Co-Sign Detail Recorded Client Recorded Date Recorded By Document 10/11/18 08:18 DL [id number] 10/11/18 08:24 DL 10/11/18 08:18 Wound Center Nurse 1 [Ulcer Assessment] #3 Right Big Toe -Current Size (cm) - Length 0.2 -Current Size (cm) - Width 0.2 -Current Size (cm) - Depth 0.2 -Total Square Cm 0.04 -Photo Taken No -Maximum Distance #2 (cm) 0.3 -Circular Undermining Yes -Exudate Amt None Present -Wound Margin Thickened -Granulation Amt Small (1-33%) -Granulation Quality [place] -Necrosis Amt Small (1-33%) -Necrotic Tissue Type Adherent Slough -Structure Exposed N/A -Texture (Keila-wound Skin Appearance) Callus Scarring -Moisture (Keila-wound Skin Appearance Dry/Scaly ) -Color (Keila-wound Skin Appearance) No Abnormality -Temperature (Keila-wound Skin No Abnormality Appearance) (Pt Warm) -Tenderness on Palpation (Keila-wound No Skin Appearance) -Ulcer Cleansing Rinsed/ Irrigated with Saline -Foul Odor after Cleansing No -Anesthetic Used 4% Lidocaine Solution WC - Nurse 2 - General Ulcer CM Notes Start: 10/11/18 08:18 Freq: Status: Active Protocol: Activity Type Activity Date Activity User E-Sign Co-Sign Detail Recorded Client Recorded Date Recorded By Document 10/11/18 08:33 DV [id number] 10/11/18 08:37 DV 10/11/18 08:33 Wound Center Nurse 2 [Procedure/Treatment] -Time 08:34 -Correct Patient Yes -Correct Side, Site, Position Yes -Correct Procedure Yes -Procedure Performed Yes -Type of Procedure Debridement -Clinical Debridement Subcutaneous -Post Debridement Size (cm) - Length 0.4 -Post Debridement Size (cm) - Width 0.2 -Post Debridement Size (cm) - Depth 0.1 -Total Square Cm 0.08 -Wound/Ulcer Outcome Not Healed -Ulcer Cleansing Rinsed/ Irrigated with Saline -Foul Odor after Cleansing No -Bioengineered Tissue No -Bleeding Controlled with Pressure -Offloading Yes -Type of Offloading Surgical Shoe -Treatment Response Procedure Tolerated Well [See Physician Procedure note for Specifics] Pain Scale: 0-10 Numeric [Pain] -Is Patient Pain Free? Yes Musculoskeletal: No Tenderness to Palpation of Joints or Extremities, - - No tenderness with manipulation of ulcer site Neurological: - - Epicritic sensation grossly absent lower extremity bilateral Psych/Mental Status: Normal Affect, Appropriate Debridement Note Post-Debridement Measurements/Treatment WC - Nurse 2 - General Ulcer CM Notes Start: 10/11/18 08:18 Freq: Status: Active Protocol: Activity Type Activity Date Activity User E-Sign Co-Sign Detail Recorded Client Recorded Date Recorded By Document 10/11/18 08:33 DV [id number] 10/11/18 08:37 DV 10/11/18 08:33 Wound Center Nurse 2 #3 Right Big Toe -Time 08:34 -Correct Patient Yes -Correct Side, Site, Position Yes -Correct Procedure Yes -Procedure Performed Yes -Type of Procedure Debridement -Clinical Debridement Subcutaneous -Post Debridement Size (cm) - Length 0.4 -Post Debridement Size (cm) - Width 0.2 -Post Debridement Size (cm) - Depth 0.1 -Total Square Cm 0.08 -Wound/Ulcer Outcome Not Healed -Ulcer Cleansing Rinsed/ Irrigated with Saline -Foul Odor after Cleansing No -Bioengineered Tissue No -Bleeding Controlled with Pressure -Offloading Yes -Type of Offloading Surgical Shoe -Treatment Response Procedure Tolerated Well Pain Scale: 0-10 Numeric Is Patient Pain Free? Yes Wound debrided: Right plantar medial hallux Laterality: Right Type of Debridement: Excisional debridement Anesthesia Used: 4% Lidocaine Solution Depth: in the subcutaneous layer Percentage of wound debrided: 100 Instrument Used: #15 blade Tissue Removed: Adherent slough, fibrin, hyperkeratotic tissue Severity: Fat Layer Exposed Amount of bleeding with debridement: Mild Bleeding Controlled with: Pressure Patient tolerated procedure well Assessment/Plan Assessment: Ulcer with fat layer exposed to right plantar medial hallux. DM 2 with neuropathy Plan: Patient was carefully examined and evaluated again today for ulcer to the right hallux. Ulcer site was debrided subcutaneously as noted in the clinical panel again today. Once complete, the ulcer site was carefully cleansed and then dressed with a slightly moistened Cindi followed by dry sterile dressing. Patient is to continue to have dressings changed in this manner daily with the help of his . The patient is to continue with offloading surgical shoe with a dual density insert with offloaded area for right hallux. Offloading insert for surgical shoe will be decreased in thickness as it is making the patient's ankle feel slightly unstable. Patient will also be dispensed offloading padding to stick directly to the toe at the [facility]. Patient is to continue to focus pressure to his heel and away from the forefoot/great toe while walking. Patient is continuing to wear his offloading diabetic shoe on the opposite foot. Patient was instructed to keep the offloading surgical shoe on at all times while weightbearing and to do his best to keep as much pressure and weight off his foot as he can while it continues to heal. I also recommended diet high in protein to help optimize ulcer healing potential. The importance of tight glycemic control was again discussed with this patient. The patient was educated on all signs and symptoms of local and systemic infection, and he was instructed to go to the emergency room immediately should he notice any these. All questions were answered to the patient's satisfaction. The patient will follow up at the wound healing center in 1 week to check on progress, or sooner if needed.
[2018-10-18 08:32] VITALS: BP 142/80; PULSE 100; RESP 16; TEMP 37.6; BMI 51.7
--- NOTE | 2018-10-18 09:25 | PN.PCM_ITS ---
(1) Type 2 diabetes mellitus with diabetic polyneuropathy Status: Acute Current Visit: No Code(s): E11.42 - Type 2 diabetes mellitus with diabetic polyneuropathy (2) Delayed wound healing Status: Acute Current Visit: No Code(s): T14.8XXD - Other injury of unspecified body region, subsequent encounter (3) Edema, lower extremity Status: Acute Current Visit: No Code(s): R60.0 - Localized edema (4) Ulcer of right foot with fat layer exposed Status: Acute Current Visit: No Code(s): L97.512 - Non-pressure chronic ulcer of other part of right foot with fat layer exposed Type of Wound Chief Complaint: ulcer right hallux History of Wound: This 52 year old diabetic male presents to wound center today for ulcer of his right medial plantar great toe. Patient states that he has been trying to lose weight and has been working out on the treadmill at [employer]. He says this ulcer is in the same area on his left great toe this time that he had healed out earlier in the year on his right great toe. These were both caused the same way. He says after a while, he noticed some callus building up on his left great toe that eventually broke down into an ulcer. He was seen in my office last week and followed up at wound healing center today for continuation of care. Patient has been taking Augmentin as prescribed last week and applying daily cindi dressing changes with the help of his . Patient denies any purulence or extending redness. He currently denies any feelings of nausea, vomiting, fever, or chills. Progress of Wound: Ulcer stable. Patient has been having daily cindi dressing changes with help of . Keeps area offloaded with offloading surgical shoe and padding. Denies fellings of nausea, vomiting, fever, or chills. - Physical Exam Vital Signs Temp Pulse Resp BP 99.6 F H 100 16 142/80 H 10/18/18 08:32 10/18/18 08:32 10/18/18 08:32 10/18/18 08:32 General: Alert, Oriented x3, Cooperative, No apparent distress Extremities: Capillary Refill Less than 3 Seconds, No Calf Tenderness - Negative Suellen and Santiago signs, Edema - Bilateral lower extremity edema, Peripheral Pulses Normal - DP and PT pulses palpable bilateral Skin: Ulcer/ Wound - Ulcer to right plantar medial hallux with fat layer exposed. Measurements noted below. The base continues to be a mixture of adherent slough, fibrotic tissue, granular tissue, as well as some surrounding hyperkeratotic tissue. There continues to be no purulence, no malodor, no streaking cellulitis, no increase in warmth, no probing to bone, no tracking, and no undermining. Wound Measurements and Assessment WC - Nurse 1 - General Ulcer Measurement Start: 10/11/18 08:18 Freq: Status: Active Protocol: Activity Type Activity Date Activity User E-Sign Co-Sign Detail Recorded Client Recorded Date Recorded By Document 10/18/18 08:32 MT [email or web address] 10/18/18 08:33 MT 10/18/18 08:32 Wound Center Nurse 1 [Ulcer Assessment] #3 Right Big Toe -Current Size (cm) - Length 0.1 -Current Size (cm) - Width 0.1 -Current Size (cm) - Depth 0.1 -Total Square Cm 0.01 -Texture (Keila-wound Skin Appearance) Callus WC - Nurse 2 - General Ulcer CM Notes Start: 10/11/18 08:18 Freq: Status: Active Protocol: Activity Type Activity Date Activity User E-Sign Co-Sign Detail Recorded Client Recorded Date Recorded By Document 10/18/18 08:38 AN [id number] 10/18/18 08:44 AN 10/18/18 08:38 Wound Center Nurse 2 [Procedure/Treatment] -Time 08:39 -Correct Patient Yes -Correct Side, Site, Position Yes -Correct Procedure Yes -Procedure Performed Yes -Type of Procedure Debridement -Clinical Debridement Subcutaneous -Post Debridement Size (cm) - Length 0.4 -Post Debridement Size (cm) - Width 0.3 -Post Debridement Size (cm) - Depth 0.1 -Total Square Cm 0.12 -Wound/Ulcer Outcome Not Healed -Ulcer Cleansing Rinsed/ Irrigated with Saline -Foul Odor after Cleansing No -Bioengineered Tissue No -Bleeding Controlled with Pressure -Offloading Yes -Type of Offloading Surgical Shoe -Treatment Response Procedure Tolerated Well [See Physician Procedure note for Specifics] Pain Scale: 0-10 Numeric [Pain] -Is Patient Pain Free? Yes Musculoskeletal: No Tenderness to Palpation of Joints or Extremities, - - No tenderness with manipulation of ulcer site Neurological: - - Epicritic sensation grossly absent to lower extremity bilateral Psych/Mental Status: Normal Affect, Appropriate Debridement Note Post-Debridement Measurements/Treatment WC - Nurse 2 - General Ulcer CM Notes Start: 10/11/18 08:18 Freq: Status: Active Protocol: Activity Type Activity Date Activity User E-Sign Co-Sign Detail Recorded Client Recorded Date Recorded By Document 10/11/18 08:33 DV [id number] 10/11/18 08:37 DV Document 10/18/18 08:38 AN [id number] 10/18/18 08:44 AN 10/11/18 10/18/18 08:33 08:38 Wound Center Nurse 2 #3 Right Big Toe -Time 08:34 08:39 -Correct Patient Yes Yes -Correct Side, Site, Position Yes Yes -Correct Procedure Yes Yes -Procedure Performed Yes Yes -Type of Procedure Debridement Debridement -Clinical Debridement Subcutaneous Subcutaneous -Post Debridement Size (cm) - Length 0.4 0.4 -Post Debridement Size (cm) - Width 0.2 0.3 -Post Debridement Size (cm) - Depth 0.1 0.1 -Total Square Cm 0.08 0.12 -Wound/Ulcer Outcome Not Healed Not Healed -Ulcer Cleansing Rinsed/ Rinsed/ Irrigated with Irrigated with Saline Saline -Foul Odor after Cleansing No No -Bioengineered Tissue No No -Bleeding Controlled with Pressure Pressure -Offloading Yes Yes -Type of Offloading Surgical Shoe Surgical Shoe -Treatment Response Procedure Procedure Tolerated Well Tolerated Well Pain Scale: 0-10 Numeric Is Patient Pain Free? Yes Yes Wound debrided: Right plantar medial hallux Laterality: Right Type of Debridement: Excisional debridement Anesthesia Used: 4% Lidocaine Solution Depth: in the subcutaneous layer Percentage of wound debrided: 100 Instrument Used: #15 blade Tissue Removed: Adherent slough, fibrin, hyperkeratotic tissue Severity: Fat Layer Exposed Amount of bleeding with debridement: Mild Bleeding Controlled with: Pressure Patient tolerated procedure well Assessment/Plan Assessment: Ulcer with fat layer exposed to right plantar medial hallux. DM 2 with neuropathy Plan: Patient was carefully examined and evaluated again today for ulcer to the right hallux. Ulcer site was debrided subcutaneously as noted in the clinical panel again today. Once complete, the ulcer site was carefully cleansed and then dressed with a slightly moistened Cindi followed by dry sterile dressing. Patient is to continue to have dressings changed in this manner daily with the help of his . The patient is to continue with offloading surgical shoe with a dual density insert with offloaded area for right hallux. Offloading insert for surgical shoe will be decreased in thickness as it is making the patient's ankle feel slightly unstable. Patient to also continue with offloading padding in conjunction with his offloading surgical shoe. If there continues to be no improvement, we discussed the possibility of using a cam walker to offload the area. Patient is to continue to focus pressure to his heel and away from the forefoot/great toe while walking. Patient is continuing to wear his offloading diabetic shoe on the opposite foot. Patient was instructed to keep the offloading surgical shoe on at all times while weightbearing and to do his best to keep as much pressure and weight off his foot as he can while it continues to heal. I also recommended diet high in protein to help optimize ulcer healing potential. The importance of tight glycemic control was again discussed with this patient. The patient was educated on all signs and symptoms of local and systemic infection, and he was instructed to go to the emergency room immediately should he notice any these. All questions were answered to the patient's satisfaction. The patient will follow up at the wound healing center in 1 week to check on progress, or sooner if needed.
[2018-10-25 08:13] VITALS: BP 167/88; PULSE 106; RESP 20; TEMP 37.1; BMI 51.7
--- NOTE | 2018-10-25 08:28 | PCM.WC.PN ---
(1) Type 2 diabetes mellitus with diabetic polyneuropathy Status: Acute Current Visit: No Code(s): E11.42 - Type 2 diabetes mellitus with diabetic polyneuropathy (2) Delayed wound healing Status: Acute Current Visit: No Code(s): T14.8XXD - Other injury of unspecified body region, subsequent encounter (3) Edema, lower extremity Status: Acute Current Visit: No Code(s): R60.0 - Localized edema (4) Ulcer of right foot with fat layer exposed Status: Acute Current Visit: No Code(s): L97.512 - Non-pressure chronic ulcer of other part of right foot with fat layer exposed Type of Wound Chief Complaint: ulcer right hallux History of Wound: This 52 year old diabetic male presents to wound center today for ulcer of his right medial plantar great toe. Patient states that he has been trying to lose weight and has been working out on the treadmill at [employer]. He says this ulcer is in the same area on his left great toe this time that he had healed out earlier in the year on his right great toe. These were both caused the same way. He says after a while, he noticed some callus building up on his left great toe that eventually broke down into an ulcer. He was seen in my office last week and followed up at wound healing center today for continuation of care. Patient has been taking Augmentin as prescribed last week and applying daily cindi dressing changes with the help of his . Patient denies any purulence or extending redness. He currently denies any feelings of nausea, vomiting, fever, or chills. Progress of Wound: Ulcer shows improvement. Patient has been having daily cindi dressing changes with help of . Keeps area offloaded with offloading CAM walker and padding. Denies fellings of nausea, vomiting, fever, or chills. - Physical Exam Vital Signs Temp Pulse Resp BP 98.7 F 106 H 20 H 167/88 H 10/25/18 08:13 10/25/18 08:13 10/25/18 08:13 10/25/18 08:13 General: Alert, Oriented x3, Cooperative, No apparent distress Extremities: Capillary Refill Less than 3 Seconds, No Calf Tenderness - Negative Suellen and Santiago signs, Edema - Bilateral lower extremity edema, Peripheral Pulses Normal - DP and PT pulses palpable bilateral Skin: Ulcer/ Wound - Ulcer to right plantar medial hallux with fat layer exposed. Measurements noted below. Improvement noted this week. The base continues to be a mixture of adherent slough, fibrotic tissue, granular tissue, as well as some surrounding hyperkeratotic tissue. There continues to be no purulence, no malodor, no streaking cellulitis, no increase in warmth, no probing to bone, no tracking, and no undermining. Wound Measurements and Assessment - Nurse 1 - General Ulcer Measurement Start: 10/11/18 08:18 Freq: Status: Active Protocol: Activity Type Activity Date Activity User E-Sign Co-Sign Detail Recorded Client Recorded Date Recorded By Document 10/25/18 08:13 DL [id number] 10/25/18 08:19 DL 10/25/18 08:13 Wound Center Nurse 1 [Ulcer Assessment] #3 Right Big Toe -Current Size (cm) - Length 0.1 -Current Size (cm) - Width 0.1 -Current Size (cm) - Depth 0.1 -Total Square Cm 0.01 -Photo Taken No -Exudate Amt None Present -Wound Margin Thickened -Granulation Amt Small (1-33%) -Granulation Quality [place] -Necrosis Amt Small (1-33%) -Necrotic Tissue Type Adherent Slough -Structure Exposed N/A -Texture (Keila-wound Skin Appearance) Callus Scarring -Moisture (Keila-wound Skin Appearance No Abnormality ) -Color (Keila-wound Skin Appearance) No Abnormality -Temperature (Keila-wound Skin No Abnormality Appearance) (Pt Warm) -Tenderness on Palpation (Keila-wound No Skin Appearance) -Ulcer Cleansing Wound Cleanser -Foul Odor after Cleansing No -Anesthetic Used 4% Lidocaine Solution - Nurse 2 - General Ulcer CM Notes Start: 10/11/18 08:18 Freq: Status: Active Protocol: Activity Type Activity Date Activity User E-Sign Co-Sign Detail Recorded Client Recorded Date Recorded By Document 10/25/18 08:22 DL [id number] 10/25/18 08:27 DL 10/25/18 08:22 Wound Center Nurse 2 [Procedure/Treatment] -Time 08:22 -Correct Patient Yes -Correct Side, Site, Position Yes -Correct Procedure Yes -Procedure Performed Yes -Type of Procedure Debridement -Clinical Debridement Subcutaneous -Post Debridement Size (cm) - Length 0.2 -Post Debridement Size (cm) - Width 0.1 -Post Debridement Size (cm) - Depth 0.1 -Total Square Cm 0.02 -Wound/Ulcer Outcome Not Healed -Ulcer Cleansing Rinsed/ Irrigated with Saline -Foul Odor after Cleansing No -Bleeding Controlled with Pressure -Offloading Yes -Type of Offloading Wedge Shoe -Treatment Response Procedure Tolerated Well [See Physician Procedure note for Specifics] Pain Scale: 0-10 Numeric [Pain] -Is Patient Pain Free? Yes Musculoskeletal: No Tenderness to Palpation of Joints or Extremities, - - No tenderness with manipulation of ulcer site Neurological: - - Epicritic sensation grossly absent to lower extremity bilateral Psych/Mental Status: Normal Affect, Appropriate Debridement Note Post-Debridement Measurements/Treatment WC - Nurse 2 - General Ulcer CM Notes Start: 10/11/18 08:18 Freq: Status: Active Protocol: Activity Type Activity Date Activity User E-Sign Co-Sign Detail Recorded Client Recorded Date Recorded By Document 10/11/18 08:33 DV [id number] 10/11/18 08:37 DV Document 10/18/18 08:38 AN [id number] 10/18/18 08:44 AN Document 10/25/18 08:22 DL [id number] 10/25/18 08:27 DL 10/11/18 10/18/18 10/25/18 08:33 08:38 08:22 Wound Center Nurse 2 #3 Right Big Toe -Time 08:34 08:39 08:22 -Correct Patient Yes Yes Yes -Correct Side, Site, Position Yes Yes Yes -Correct Procedure Yes Yes Yes -Procedure Performed Yes Yes Yes -Type of Procedure Debridement Debridement Debridement -Clinical Debridement Subcutaneous Subcutaneous Subcutaneous -Post Debridement Size (cm) - Length 0.4 0.4 0.2 -Post Debridement Size (cm) - Width 0.2 0.3 0.1 -Post Debridement Size (cm) - Depth 0.1 0.1 0.1 -Total Square Cm 0.08 0.12 0.02 -Wound/Ulcer Outcome Not Healed Not Healed Not Healed -Ulcer Cleansing Rinsed/ Rinsed/ Rinsed/ Irrigated with Irrigated with Irrigated with Saline Saline Saline -Foul Odor after Cleansing No No No -Bioengineered Tissue No No -Bleeding Controlled with Pressure Pressure Pressure -Offloading Yes Yes Yes -Type of Offloading Surgical Shoe Surgical Shoe Wedge Shoe -Treatment Response Procedure Procedure Procedure Tolerated Well Tolerated Well Tolerated Well Pain Scale: 0-10 Numeric Is Patient Pain Free? Yes Yes Yes Wound debrided: Right plantar medial hallux Laterality: Right Type of Debridement: Excisional debridement Anesthesia Used: 4% Lidocaine Solution Depth: in the subcutaneous layer Percentage of wound debrided: 100 Instrument Used: #15 blade Tissue Removed: Adherent slough, fibrin, hyperkeratotic tissue Severity: Fat Layer Exposed Amount of bleeding with debridement: Mild Bleeding Controlled with: Pressure Patient tolerated procedure well Assessment/Plan Assessment: Ulcer with fat layer exposed to right plantar medial hallux. DM 2 with neuropathy Plan: Patient was carefully examined and evaluated again today for ulcer to the right hallux. Ulcer site was debrided subcutaneously as noted in the clinical panel again today. Improvement noted this week. Once complete, the ulcer site was carefully cleansed and then dressed with a slightly moistened Cindi followed by dry sterile dressing. Patient is to continue to have dressings changed in this manner daily with the help of his . Patient to continue with offloading CAM Walker that he has been using since Monday. Patient is to continue to focus pressure to his heel and away from the forefoot/great toe while walking. Patient is continuing to wear his offloading diabetic shoe on the opposite foot. Patient was instructed to keep the offloading surgical shoe on at all times while weightbearing and to do his best to keep as much pressure and weight off his foot as he can while it continues to heal. I also recommended diet high in protein to help optimize ulcer healing potential. The importance of tight glycemic control was again discussed with this patient. The patient was educated on all signs and symptoms of local and systemic infection, and he was instructed to go to the emergency room immediately should he notice any these. All questions were answered to the patient's satisfaction. The patient will follow up at the wound healing center in 1 week to check on progress, or sooner if needed.
--- NOTE | 2018-10-25 08:32 | PN.PCM_ITS ---
(1) Type 2 diabetes mellitus with diabetic polyneuropathy Status: Acute Current Visit: No Code(s): E11.42 - Type 2 diabetes mellitus with diabetic polyneuropathy (2) Delayed wound healing Status: Acute Current Visit: No Code(s): T14.8XXD - Other injury of unspecified body region, subsequent encounter (3) Edema, lower extremity Status: Acute Current Visit: No Code(s): R60.0 - Localized edema (4) Ulcer of right foot with fat layer exposed Status: Acute Current Visit: No Code(s): L97.512 - Non-pressure chronic ulcer of other part of right foot with fat layer exposed Type of Wound Chief Complaint: ulcer right hallux History of Wound: This 52 year old diabetic male presents to wound center today for ulcer of his right medial plantar great toe. Patient states that he has been trying to lose weight and has been working out on the treadmill at [facility]. He says this ulcer is in the same area on his left great toe this time that he had healed out earlier in the year on his right great toe. These were both caused the same way. He says after a while, he noticed some callus building up on his left great toe that eventually broke down into an ulcer. He was seen in my office last week and followed up at wound healing center today for continuation of care. Patient has been taking Augmentin as prescribed last week and applying daily cindi dressing changes with the help of his . Patient denies any purulence or extending redness. He currently denies any feelings of nausea, vomiting, fever, or chills. Progress of Wound: Ulcer shows improvement. Patient has been having daily cindi dressing changes with help of . Keeps area offloaded with offloading CAM walker and padding. Denies fellings of nausea, vomiting, fever, or chills. - Physical Exam Vital Signs Temp Pulse Resp BP 98.7 F 106 H 20 H 167/88 H 10/25/18 08:13 10/25/18 08:13 10/25/18 08:13 10/25/18 08:13 General: Alert, Oriented x3, Cooperative, No apparent distress Extremities: Capillary Refill Less than 3 Seconds, No Calf Tenderness - Negative Suellen and Santiago signs, Edema - Bilateral lower extremity edema, Peripheral Pulses Normal - DP and PT pulses palpable bilateral Skin: Ulcer/ Wound - Ulcer to right plantar medial hallux with fat layer exposed. Measurements noted below. Improvement noted this week. The base continues to be a mixture of adherent slough, fibrotic tissue, granular tissue, as well as some surrounding hyperkeratotic tissue. There continues to be no purulence, no malodor, no streaking cellulitis, no increase in warmth, no probing to bone, no tracking, and no undermining. Wound Measurements and Assessment - Nurse 1 - General Ulcer Measurement Start: 10/11/18 08:18 Freq: Status: Active Protocol: Activity Type Activity Date Activity User E-Sign Co-Sign Detail Recorded Client Recorded Date Recorded By Document 10/25/18 08:13 DL [id number] 10/25/18 08:19 DL 10/25/18 08:13 Wound Center Nurse 1 [Ulcer Assessment] #3 Right Big Toe -Current Size (cm) - Length 0.1 -Current Size (cm) - Width 0.1 -Current Size (cm) - Depth 0.1 -Total Square Cm 0.01 -Photo Taken No -Exudate Amt None Present -Wound Margin Thickened -Granulation Amt Small (1-33%) -Granulation Quality [place] -Necrosis Amt Small (1-33%) -Necrotic Tissue Type Adherent Slough -Structure Exposed N/A -Texture (Keila-wound Skin Appearance) Callus Scarring -Moisture (Keila-wound Skin Appearance No Abnormality ) -Color (Keila-wound Skin Appearance) No Abnormality -Temperature (Keila-wound Skin No Abnormality Appearance) (Pt Warm) -Tenderness on Palpation (Keila-wound No Skin Appearance) -Ulcer Cleansing Wound Cleanser -Foul Odor after Cleansing No -Anesthetic Used 4% Lidocaine Solution - Nurse 2 - General Ulcer CM Notes Start: 10/11/18 08:18 Freq: Status: Active Protocol: Activity Type Activity Date Activity User E-Sign Co-Sign Detail Recorded Client Recorded Date Recorded By Document 10/25/18 08:22 DL [id number] 10/25/18 08:27 DL 10/25/18 08:22 Wound Center Nurse 2 [Procedure/Treatment] -Time 08:22 -Correct Patient Yes -Correct Side, Site, Position Yes -Correct Procedure Yes -Procedure Performed Yes -Type of Procedure Debridement -Clinical Debridement Subcutaneous -Post Debridement Size (cm) - Length 0.2 -Post Debridement Size (cm) - Width 0.1 -Post Debridement Size (cm) - Depth 0.1 -Total Square Cm 0.02 -Wound/Ulcer Outcome Not Healed -Ulcer Cleansing Rinsed/ Irrigated with Saline -Foul Odor after Cleansing No -Bleeding Controlled with Pressure -Offloading Yes -Type of Offloading Wedge Shoe -Treatment Response Procedure Tolerated Well [See Physician Procedure note for Specifics] Pain Scale: 0-10 Numeric [Pain] -Is Patient Pain Free? Yes Musculoskeletal: No Tenderness to Palpation of Joints or Extremities, - - No tenderness with manipulation of ulcer site Neurological: - - Epicritic sensation grossly absent to lower extremity bilateral Psych/Mental Status: Normal Affect, Appropriate Debridement Note Post-Debridement Measurements/Treatment WC - Nurse 2 - General Ulcer CM Notes Start: 10/11/18 08:18 Freq: Status: Active Protocol: Activity Type Activity Date Activity User E-Sign Co-Sign Detail Recorded Client Recorded Date Recorded By Document 10/11/18 08:33 DV [id number] 10/11/18 08:37 DV Document 10/18/18 08:38 AN [id number] 10/18/18 08:44 AN Document 10/25/18 08:22 DL [id number] 10/25/18 08:27 DL 10/11/18 10/18/18 10/25/18 08:33 08:38 08:22 Wound Center Nurse 2 #3 Right Big Toe -Time 08:34 08:39 08:22 -Correct Patient Yes Yes Yes -Correct Side, Site, Position Yes Yes Yes -Correct Procedure Yes Yes Yes -Procedure Performed Yes Yes Yes -Type of Procedure Debridement Debridement Debridement -Clinical Debridement Subcutaneous Subcutaneous Subcutaneous -Post Debridement Size (cm) - Length 0.4 0.4 0.2 -Post Debridement Size (cm) - Width 0.2 0.3 0.1 -Post Debridement Size (cm) - Depth 0.1 0.1 0.1 -Total Square Cm 0.08 0.12 0.02 -Wound/Ulcer Outcome Not Healed Not Healed Not Healed -Ulcer Cleansing Rinsed/ Rinsed/ Rinsed/ Irrigated with Irrigated with Irrigated with Saline Saline Saline -Foul Odor after Cleansing No No No -Bioengineered Tissue No No -Bleeding Controlled with Pressure Pressure Pressure -Offloading Yes Yes Yes -Type of Offloading Surgical Shoe Surgical Shoe Wedge Shoe -Treatment Response Procedure Procedure Procedure Tolerated Well Tolerated Well Tolerated Well Pain Scale: 0-10 Numeric Is Patient Pain Free? Yes Yes Yes Wound debrided: Right plantar medial hallux Laterality: Right Type of Debridement: Excisional debridement Anesthesia Used: 4% Lidocaine Solution Depth: in the subcutaneous layer Percentage of wound debrided: 100 Instrument Used: #15 blade Tissue Removed: Adherent slough, fibrin, hyperkeratotic tissue Severity: Fat Layer Exposed Amount of bleeding with debridement: Mild Bleeding Controlled with: Pressure Patient tolerated procedure well Assessment/Plan Assessment: Ulcer with fat layer exposed to right plantar medial hallux. DM 2 with neuropathy Plan: Patient was carefully examined and evaluated again today for ulcer to the right hallux. Ulcer site was debrided subcutaneously as noted in the clinical panel again today. Improvement noted this week. Once complete, the ulcer site was carefully cleansed and then dressed with a slightly moistened Cindi followed by dry sterile dressing. Patient is to continue to have dressings changed in this manner daily with the help of his . Patient to continue with offloading CAM Walker that he has been using since Monday. Patient is to continue to focus pressure to his heel and away from the forefoot/great toe while walking. Patient is continuing to wear his offloading diabetic shoe on the opposite foot. Patient was instructed to keep the offloading surgical shoe on at all times while weightbearing and to do his best to keep as much pressure and weight off his foot as he can while it continues to heal. I also recommended diet high in protein to help optimize ulcer healing potential. The importance of tight glycemic control was again discussed with this patient. The patient was educated on all signs and symptoms of local and systemic infection, and he was instructed to go to the emergency room immediately should he notice any these. All questions were answered to the patient's satisfaction. The patient will follow up at the wound healing center in 1 week to check on progress, or sooner if needed.
[2018-11-01 08:10] VITALS: BP 143/70; PULSE 111; RESP 20; TEMP 36.9; BMI 51.7
--- NOTE | 2018-11-01 08:41 | PCM.WC.PN ---
(1) Type 2 diabetes mellitus with diabetic polyneuropathy Status: Acute Current Visit: No Code(s): E11.42 - Type 2 diabetes mellitus with diabetic polyneuropathy (2) Delayed wound healing Status: Acute Current Visit: No Code(s): T14.8XXD - Other injury of unspecified body region, subsequent encounter (3) Edema, lower extremity Status: Acute Current Visit: No Code(s): R60.0 - Localized edema (4) Ulcer of right foot with fat layer exposed Status: Acute Current Visit: No Code(s): L97.512 - Non-pressure chronic ulcer of other part of right foot with fat layer exposed Type of Wound Chief Complaint: ulcer right hallux History of Wound: This 52 year old diabetic male presents to wound center today for ulcer of his right medial plantar great toe. Patient states that he has been trying to lose weight and has been working out on the treadmill at [employer]. He says this ulcer is in the same area on his left great toe this time that he had healed out earlier in the year on his right great toe. These were both caused the same way. He says after a while, he noticed some callus building up on his left great toe that eventually broke down into an ulcer. He was seen in my office last week and followed up at wound healing center today for continuation of care. Patient has been taking Augmentin as prescribed last week and applying daily lluvia dressing changes with the help of his . Patient denies any purulence or extending redness. He currently denies any feelings of nausea, vomiting, fever, or chills. Progress of Wound: Ulcer site appears healed today with no signs of infection appreciated. - Physical Exam Vital Signs Temp Pulse Resp BP 98.4 F 111 H 20 H 143/70 H 11/01/18 08:10 11/01/18 08:10 11/01/18 08:10 11/01/18 08:10 General: Alert, Oriented x3, Cooperative, No apparent distress Extremities: Capillary Refill Less than 3 Seconds, No Calf Tenderness - Negative Suellen and Santiago signs, Edema Skin: Ulcer/ Wound - Ulcer site is healed today with no signs of local infection appreciated. Wound Measurements and Assessment WC - Nurse 1 - General Ulcer Measurement Start: 10/11/18 08:18 Freq: Status: Active Protocol: Activity Type Activity Date Activity User E-Sign Co-Sign Detail Recorded Client Recorded Date Recorded By Document 11/01/18 08:10 [id number] 11/01/18 08:12 11/01/18 08:10 Wound Center Nurse 1 [Ulcer Assessment] #3 Right Big Toe -Combined with other wound No -Current Size (cm) - Length 0.1 -Current Size (cm) - Width 0.1 -Current Size (cm) - Depth 0.1 -Total Square Cm 0.01 -Photo Taken No -Epithelialization Large 67-100% -Tunneling No -Undermining/Tunneling No -Circular Undermining No -Exudate Amt None Present -Wound Margin Flat & Intact -Granulation Amt None Present (0 %) -Slough/Fibrin No -Structure Exposed N/A -Texture (Keila-wound Skin Appearance) Assessed Callus -Moisture (Keila-wound Skin Appearance Assessed ) Dry/Scaly -Color (Keila-wound Skin Appearance) Assessed -Temperature (Keila-wound Skin No Abnormality Appearance) (Pt Warm) -Tenderness on Palpation (Keila-wound No Skin Appearance) -Ulcer Cleansing Rinsed/ Irrigated with Saline -Foul Odor after Cleansing No -Anesthetic Used 5% Lidocaine Gel [Edema Assessment] -Lower Limb Edema Present No WC - Nurse 2 - General Ulcer CM Notes Start: 10/11/18 08:18 Freq: Status: Active Protocol: Activity Type Activity Date Activity User E-Sign Co-Sign Detail Recorded Client Recorded Date Recorded By Document 11/01/18 08:17 AN [id number] 11/01/18 08:22 AN 11/01/18 08:17 Wound Center Nurse 2 [Procedure/Treatment] #3 Right Big Toe -Time 08:18 -Correct Patient Yes -Correct Side, Site, Position Yes -Correct Procedure Yes -Procedure Performed No [See Physician Procedure note for Specifics] Pain Scale: 0-10 Numeric [Pain] -Is Patient Pain Free? Yes Musculoskeletal: No Tenderness to Palpation of Joints or Extremities Neurological: - - Epicritic sensation grossly absent to lower extremity Psych/Mental Status: Normal Affect, Appropriate Debridement Note Post-Debridement Measurements/Treatment WC - Nurse 2 - General Ulcer CM Notes Start: 10/11/18 08:18 Freq: Status: Active Protocol: Activity Type Activity Date Activity User E-Sign Co-Sign Detail Recorded Client Recorded Date Recorded By Document 10/11/18 08:33 [id number] 10/11/18 08:37 DV Document 10/18/18 08:38 AN [id number] 10/18/18 08:44 AN Document 10/25/18 08:22 DL [id number] 10/25/18 08:27 DL Document 11/01/18 08:17 AN [id number] 11/01/18 08:22 AN 10/11/18 10/18/18 10/25/18 08:33 08:38 08:22 Wound Center Nurse 2 #3 Right Big Toe -Time 08:34 08:39 08:22 -Correct Patient Yes Yes Yes -Correct Side, Site, Position Yes Yes Yes -Correct Procedure Yes Yes Yes -Procedure Performed Yes Yes Yes -Type of Procedure Debridement Debridement Debridement -Clinical Debridement Subcutaneous Subcutaneous Subcutaneous -Post Debridement Size (cm) - Length 0.4 0.4 0.2 -Post Debridement Size (cm) - Width 0.2 0.3 0.1 -Post Debridement Size (cm) - Depth 0.1 0.1 0.1 -Total Square Cm 0.08 0.12 0.02 -Wound/Ulcer Outcome Not Healed Not Healed Not Healed -Ulcer Cleansing Rinsed/ Rinsed/ Rinsed/ Irrigated with Irrigated with Irrigated with Saline Saline Saline -Foul Odor after Cleansing No No No -Bioengineered Tissue No No -Bleeding Controlled with Pressure Pressure Pressure -Offloading Yes Yes Yes -Type of Offloading Surgical Shoe Surgical Shoe Wedge Shoe -Treatment Response Procedure Procedure Procedure Tolerated Well Tolerated Well Tolerated Well Pain Scale: 0-10 Numeric Is Patient Pain Free? Yes Yes Yes 11/01/18 08:17 Wound Center Nurse 2 #3 Right Big Toe -Time 08:18 -Correct Patient Yes -Correct Side, Site, Position Yes -Correct Procedure Yes -Procedure Performed No -Type of Procedure -Clinical Debridement -Post Debridement Size (cm) - Length -Post Debridement Size (cm) - Width -Post Debridement Size (cm) - Depth -Total Square Cm -Wound/Ulcer Outcome -Ulcer Cleansing -Foul Odor after Cleansing -Bioengineered Tissue -Bleeding Controlled with -Offloading -Type of Offloading -Treatment Response Pain Scale: 0-10 Numeric Is Patient Pain Free? Yes No debridement was completed today Assessment/Plan Assessment: Ulcer with fat layer exposed to right plantar medial hallux. DM 2 with neuropathy Plan: Patient was carefully examined and evaluated again today for ulcer to the right hallux. Ulcer site appears healed today with no signs of surrounding local infection. At this time, the patient is to continue with CAM Walker to right foot at all times while weightbearing and to keep the area offloaded at least for the next week while the skin continues to strengthen in the area. I also recommended continued diet high in protein. The importance of tight glycemic control was again discussed with this patient. The patient was educated on all signs and symptoms of local and systemic infection, and he was instructed to go to the emergency room immediately should he notice any these. All questions were answered to the patient's satisfaction. The patient will follow up with me at the [facility] [place] in 1 week to recheck right hallux and to dispense his offloading diabetic shoes. Patient is to follow-up sooner if needed before then for any reason.
--- NOTE | 2018-11-01 08:46 | PN.PCM_ITS ---
(1) Type 2 diabetes mellitus with diabetic polyneuropathy Status: Acute Current Visit: No Code(s): E11.42 - Type 2 diabetes mellitus with diabetic polyneuropathy (2) Delayed wound healing Status: Acute Current Visit: No Code(s): T14.8XXD - Other injury of unspecified body region, subsequent encounter (3) Edema, lower extremity Status: Acute Current Visit: No Code(s): R60.0 - Localized edema (4) Ulcer of right foot with fat layer exposed Status: Acute Current Visit: No Code(s): L97.512 - Non-pressure chronic ulcer of other part of right foot with fat layer exposed Type of Wound Chief Complaint: ulcer right hallux History of Wound: This 52 year old diabetic male presents to wound center today for ulcer of his right medial plantar great toe. Patient states that he has been trying to lose weight and has been working out on the treadmill at [employer]. He says this ulcer is in the same area on his left great toe this time that he had healed out earlier in the year on his right great toe. These were both caused the same way. He says after a while, he noticed some callus building up on his left great toe that eventually broke down into an ulcer. He was seen in my office last week and followed up at wound healing center today for continuation of care. Patient has been taking Augmentin as prescribed last week and applying daily lluvia dressing changes with the help of his . Patient denies any purulence or extending redness. He currently denies any feelings of nausea, vomiting, fever, or chills. Progress of Wound: Ulcer site appears healed today with no signs of infection appreciated. - Physical Exam Vital Signs Temp Pulse Resp BP 98.4 F 111 H 20 H 143/70 H 11/01/18 08:10 11/01/18 08:10 11/01/18 08:10 11/01/18 08:10 General: Alert, Oriented x3, Cooperative, No apparent distress Extremities: Capillary Refill Less than 3 Seconds, No Calf Tenderness - Negative Suellen and Santiago signs, Edema Skin: Ulcer/ Wound - Ulcer site is healed today with no signs of local infection appreciated. Wound Measurements and Assessment WC - Nurse 1 - General Ulcer Measurement Start: 10/11/18 08:18 Freq: Status: Active Protocol: Activity Type Activity Date Activity User E-Sign Co-Sign Detail Recorded Client Recorded Date Recorded By Document 11/01/18 08:10 [id number] 11/01/18 08:12 11/01/18 08:10 Wound Center Nurse 1 [Ulcer Assessment] #3 Right Big Toe -Combined with other wound No -Current Size (cm) - Length 0.1 -Current Size (cm) - Width 0.1 -Current Size (cm) - Depth 0.1 -Total Square Cm 0.01 -Photo Taken No -Epithelialization Large 67-100% -Tunneling No -Undermining/Tunneling No -Circular Undermining No -Exudate Amt None Present -Wound Margin Flat & Intact -Granulation Amt None Present (0 %) -Slough/Fibrin No -Structure Exposed N/A -Texture (Keila-wound Skin Appearance) Assessed Callus -Moisture (Keila-wound Skin Appearance Assessed ) Dry/Scaly -Color (Keila-wound Skin Appearance) Assessed -Temperature (Keila-wound Skin No Abnormality Appearance) (Pt Warm) -Tenderness on Palpation (Keila-wound No Skin Appearance) -Ulcer Cleansing Rinsed/ Irrigated with Saline -Foul Odor after Cleansing No -Anesthetic Used 5% Lidocaine Gel [Edema Assessment] -Lower Limb Edema Present No WC - Nurse 2 - General Ulcer CM Notes Start: 10/11/18 08:18 Freq: Status: Active Protocol: Activity Type Activity Date Activity User E-Sign Co-Sign Detail Recorded Client Recorded Date Recorded By Document 11/01/18 08:17 AN [id number] 11/01/18 08:22 AN 11/01/18 08:17 Wound Center Nurse 2 [Procedure/Treatment] #3 Right Big Toe -Time 08:18 -Correct Patient Yes -Correct Side, Site, Position Yes -Correct Procedure Yes -Procedure Performed No [See Physician Procedure note for Specifics] Pain Scale: 0-10 Numeric [Pain] -Is Patient Pain Free? Yes Musculoskeletal: No Tenderness to Palpation of Joints or Extremities Neurological: - - Epicritic sensation grossly absent to lower extremity Psych/Mental Status: Normal Affect, Appropriate Debridement Note Post-Debridement Measurements/Treatment WC - Nurse 2 - General Ulcer CM Notes Start: 10/11/18 08:18 Freq: Status: Active Protocol: Activity Type Activity Date Activity User E-Sign Co-Sign Detail Recorded Client Recorded Date Recorded By Document 10/11/18 08:33 [id number] 10/11/18 08:37 DV Document 10/18/18 08:38 AN [id number] 10/18/18 08:44 AN Document 10/25/18 08:22 DL [id number] 10/25/18 08:27 DL Document 11/01/18 08:17 AN [id number] 11/01/18 08:22 AN 10/11/18 10/18/18 10/25/18 08:33 08:38 08:22 Wound Center Nurse 2 #3 Right Big Toe -Time 08:34 08:39 08:22 -Correct Patient Yes Yes Yes -Correct Side, Site, Position Yes Yes Yes -Correct Procedure Yes Yes Yes -Procedure Performed Yes Yes Yes -Type of Procedure Debridement Debridement Debridement -Clinical Debridement Subcutaneous Subcutaneous Subcutaneous -Post Debridement Size (cm) - Length 0.4 0.4 0.2 -Post Debridement Size (cm) - Width 0.2 0.3 0.1 -Post Debridement Size (cm) - Depth 0.1 0.1 0.1 -Total Square Cm 0.08 0.12 0.02 -Wound/Ulcer Outcome Not Healed Not Healed Not Healed -Ulcer Cleansing Rinsed/ Rinsed/ Rinsed/ Irrigated with Irrigated with Irrigated with Saline Saline Saline -Foul Odor after Cleansing No No No -Bioengineered Tissue No No -Bleeding Controlled with Pressure Pressure Pressure -Offloading Yes Yes Yes -Type of Offloading Surgical Shoe Surgical Shoe Wedge Shoe -Treatment Response Procedure Procedure Procedure Tolerated Well Tolerated Well Tolerated Well Pain Scale: 0-10 Numeric Is Patient Pain Free? Yes Yes Yes 11/01/18 08:17 Wound Center Nurse 2 #3 Right Big Toe -Time 08:18 -Correct Patient Yes -Correct Side, Site, Position Yes -Correct Procedure Yes -Procedure Performed No -Type of Procedure -Clinical Debridement -Post Debridement Size (cm) - Length -Post Debridement Size (cm) - Width -Post Debridement Size (cm) - Depth -Total Square Cm -Wound/Ulcer Outcome -Ulcer Cleansing -Foul Odor after Cleansing -Bioengineered Tissue -Bleeding Controlled with -Offloading -Type of Offloading -Treatment Response Pain Scale: 0-10 Numeric Is Patient Pain Free? Yes No debridement was completed today Assessment/Plan Assessment: Ulcer with fat layer exposed to right plantar medial hallux. DM 2 with neuropathy Plan: Patient was carefully examined and evaluated again today for ulcer to the right hallux. Ulcer site appears healed today with no signs of surrounding local infection. At this time, the patient is to continue with CAM Walker to right foot at all times while weightbearing and to keep the area offloaded at least for the next week while the skin continues to strengthen in the area. I also recommended continued diet high in protein. The importance of tight glycemic control was again discussed with this patient. The patient was educated on all signs and symptoms of local and systemic infection, and he was instructed to go to the emergency room immediately should he notice any these. All questions were answered to the patient's satisfaction. The patient will follow up with me at the [facility] [place] in 1 week to recheck right hallux and to dispense his offloading diabetic shoes. Patient is to follow-up sooner if needed before then for any reason.
== END 2018-11-09 23:59 ==
LOC: WC 08:00
PROVIDERS: Family Provider Family Medicine; PCP Family Medicine; Visit Provider Podiatrist
DX: E11.621 Type 2 diabetes mellitus with foot ulcer (principal); E11.42 Type 2 diabetes mellitus with diabetic polyneuropathy; R60.0 Localized edema; L97.512 Non-pressure chronic ulcer of other part of right foot with fat layer exposed
CPT/HCPCS: 11042; 99212; G0463

== ENCOUNTER → 2019-02-16 | Outpatient (CLI) | payer BC, SELFPAY ==
[2019-02-16 07:43] VITALS: BMI 51.7
[2019-02-16 08:32] LABS: Anion Gap 4 (5-15); BUN 12 mg/dL (7-18); BUN/Creat Ratio 12.4 RATIO (10-20); Calcium,Total 8.9 mg/dL (8.5-10.1); Chloride 106 mmol/L (98-107); Cholesterol 154 mg/dL (200); Creatinine, Serum 0.97 mg/dL (0.70-1.30); EST Glomerular Filtration Rate 87 mL/min (>60); Est Glom Filt Rate - Afr Amer 105 mL/min (>60); Glucose 100 mg/dL (74-106); High Density Lipoprotein 37 mg/dL; Potassium 3.8 mmol/L (3.5-5.1); Sodium Level 139 mmol/L (136-145); Triglycerides 194 mg/dL; Uric Acid 5.6 mg/dL (3.5-7.2); Very Low Density Lipoprotein 39 mg/dL (5-40)
[2019-02-16 08:34] LABS: Microalbumin:Creatinine Ratio 159.2 mg/g CRE (<30 mg/g CRE)
== END | disposition home or self-care (01) ==
LOC: LAB 07:46
PROVIDERS: Family Provider Family Medicine; PCP Family Medicine; Referring Provider Family Medicine; Visit Provider Family Medicine
DX: E11.9 Type 2 diabetes mellitus without complications (principal); M10.9 Gout, unspecified
CPT/HCPCS: 36415; 80048; 80061; 82043; 82570; 84550

== ENCOUNTER 2019-05-15 08:29 | Outpatient (RCR) | payer BC, SELFPAY ==
[2019-02-16 07:43] VITALS: BMI 51.7
[2019-05-15 08:58] VITALS: BP 162/91; PULSE 105; RESP 18; TEMP 37.4; BMI 101.9
--- NOTE | 2019-05-15 11:04 | PCM.WC.HP ---
(1) Callus of foot Status: Acute Current Visit: Yes Code(s): L84 - Corns and callosities (2) Type 2 diabetes mellitus with diabetic polyneuropathy Status: Acute Current Visit: No Code(s): E11.42 - Type 2 diabetes mellitus with diabetic polyneuropathy History of Present Illness Date of Service: 05/15/19 Chief Complaint: Left lateral great toe medial side History of Wound: 53-year-old white male with chronic issues of his feet he is diabetic developed callus on his great toes on the lateral way he walks and rubs on his shoes. Patient has developed a callus that was debrided down last week by Dr. Alcaraz. Here to reevaluate and look at it. We will pared down again but he just needs to continue at home using a mandolin to continue paring down the skin himself. Wounds are healed there is no open area. Past Medical History Past Medical History: Chronic Problems (This Medical Record has been edited. Action required.) HTN (hypertension) (Chronic) Diabetes type 2, uncontrolled (Chronic) Gout (Chronic) Past Medical History: Callus left great toe medial side Surgical History: - - previous I&D's in his perineal area and right inguinal area because of infection. The right inguinal infection was drained in 2005. Allergies/Adverse Reactions: Allergies No Known Allergies Allergy (Verified 01/30/19 14:33) Home Medications: Ambulatory Orders Medication Instructions Recorded Multivitamins,Therapeutic 1 tablet PO DAILY 04/26/13 [Multivitamin] [place]-3/Dha/Epa/Fish Oil [Fish Oil 1,200 mg PO BID 04/26/13 Dr 500 mg Softgel] metFORMIN HCl [Glucophage] 1,000 mg PO BIDCM 04/26/13 Cinnamon 2,000 mg PO DAILY 11/09/14 Aspirin [Aspirin, Baby] 81 mg PO DAILY@0800 11/02/17 Empagliflozin [Jardiance] 25 mg PO DAILY 11/02/17 Insulin Detemir [Levemir (BKC)] 47 units SC QHS 11/02/17 amlodipine 10 mg tablet 10 mg PO DAILY 30 Days #30 tab 11/09/18 - Family History Maternal Family History: Family History (This Medical Record has been edited. Action required.) Other Diabetes No pertinent history Paternal Family History: Family History (This Medical Record has been edited. Action required.) Other Diabetes Renal Disease Smoking Status: Never smoker Review of Systems Constitutional: Denies: Chills, Fever Eyes: Denies: Blurred vision, Drainage, Pain HEENT: Denies: Difficulty Hearing, Difficulty Swallowing, Sore Throat, Visual Changes Cardiovascular: Denies: Chest Pain, Palpitations, Syncope Respiratory: Denies: Cough, Shortness of Breath Gastrointestinal: Denies: Abdominal Pain, Nausea, Vomiting Genitourinary: Denies: Dysuria, Frequency Musculoskeletal: Denies: Joint Pain, Muscle pain Skin: Denies: Jaundice, Rash Neurological: Denies: Balance problems, Change in Speech, Difficulty swallowing, Focal weakness Psychiatric: Denies: Anxiety, Depression Endocrine: Denies: Change in Body Habitus Hematologic/ Lymphatic: Denies: Adenopathy - Physical Exam Vital Signs Temp Pulse Resp BP 99.3 F H 105 H 18 162/91 H 05/15/19 08:58 05/15/19 08:58 05/15/19 08:58 05/15/19 08:58 General: Oriented x3, Cooperative, Well developed HEENT: Atraumatic, PERRLA Oral: Moist Mucosa Neck: Supple, No JVD Lungs: Clear to auscultation, Normal air movement Cardiovascular: Regular rate, Regular Rhythm Abdomen: Bowel Sounds Present, Soft, Non Tender, No Hepato-splenomegaly Extremities: No clubbing, No edema Skin: - - Callus left Wound Measurements and Assessment WC - Nurse 1 - General Ulcer Measurement Start: 05/15/19 08:50 Freq: Status: Active Protocol: Activity Type Activity Date Activity User E-Sign Co-Sign Detail Recorded Client Recorded Date Recorded By Document 05/15/19 08:50 [id number] 05/15/19 08:58 RB 05/15/19 08:50 Wound Center Nurse 1 [Ulcer Assessment] #4 LEFT MEDIAL GREAT TOE -Combined with other wound No -Current Size (cm) - Length 0.1 -Current Size (cm) - Width 0.3 -Current Size (cm) - Depth 0.2 -Total Square Cm 0.03 -Photo Taken Yes -Tunneling No -Undermining/Tunneling No -Circular Undermining No -Exudate Amt Small -Exudate Type Serosanguineous -Wound Margin Distinct, Outline Attached -Granulation Amt Medium (34-66%) -Granulation Quality [place] -Slough/Fibrin Yes -Necrosis Amt Small (1-33%) -Necrotic Tissue Type Adherent Slough -Structure Exposed N/A -Texture (Keila-wound Skin Appearance) Assessed,Callus -Moisture (Keila-wound Skin Appearance Assessed ) -Color (Keila-wound Skin Appearance) Assessed -Temperature (Keila-wound Skin No Abnormality Appearance) (Pt Warm) -Tenderness on Palpation (Keila-wound No Skin Appearance) -Ulcer Cleansing Wound Cleanser -Foul Odor after Cleansing No -Anesthetic Used 5% Lidocaine Gel [Edema Assessment] -Lower Limb Edema Present Yes -Right Calf (cm) 51.2 -Right Ankle (cm) 27 -Left Calf (cm) 49 -Left Ankle (cm) 27 WC - Nurse 2 - General Ulcer CM Notes Start: 05/15/19 08:50 Freq: Status: Active Protocol: Activity Type Activity Date Activity User E-Sign Co-Sign Detail Recorded Client Recorded Date Recorded By Document 05/15/19 09:25 MW [id number] 05/15/19 09:34 MW 05/15/19 09:25 Wound Center Nurse 2 [Procedure/Treatment] #4 LEFT MEDIAL GREAT TOE -Time 09:26 -Correct Patient Yes -Correct Side, Site, Position Yes -Correct Procedure Yes -Procedure Performed No -Post Debridement Size (cm) - Length 0 -Post Debridement Size (cm) - Width 0 -Post Debridement Size (cm) - Depth 0 -Total Square Cm 0 -Wound/Ulcer Outcome Healed- Epithelialized -Ulcer Cleansing Rinsed/ Irrigated with Saline -Foul Odor after Cleansing No -Bioengineered Tissue No -Bleeding Controlled with Pressure -Offloading No -Treatment Response Procedure Tolerated Well [See Physician Procedure note for Specifics] Pain Scale: 0-10 Numeric [Pain] -Is Patient Pain Free? Yes Musculoskeletal: No Tenderness to Palpation of Joints or Extremities Lymphatic: No Cervical, Supraclavicular, or Inguinal Adenopathy Neurological: Cranial nerves II-XII grossly intact, Neuro grossly intact Psych/Mental Status: Normal Affect, Appropriate Debridement Note Post-Debridement Measurements/Treatment WC - Nurse 2 - General Ulcer CM Notes Start: 05/15/19 08:50 Freq: Status: Active Protocol: Activity Type Activity Date Activity User E-Sign Co-Sign Detail Recorded Client Recorded Date Recorded By Document 05/15/19 09:25 MW [id number] 05/15/19 09:34 MW 05/15/19 09:25 Wound Center Nurse 2 #4 LEFT MEDIAL GREAT TOE -Time 09:26 -Correct Patient Yes -Correct Side, Site, Position Yes -Correct Procedure Yes -Procedure Performed No -Post Debridement Size (cm) - Length 0 -Post Debridement Size (cm) - Width 0 -Post Debridement Size (cm) - Depth 0 -Total Square Cm 0 -Wound/Ulcer Outcome Healed- Epithelialized -Ulcer Cleansing Rinsed/ Irrigated with Saline -Foul Odor after Cleansing No -Bioengineered Tissue No -Bleeding Controlled with Pressure -Offloading No -Treatment Response Procedure Tolerated Well Pain Scale: 0-10 Numeric Is Patient Pain Free? Yes Wound debrided: Left great toe medial side Type of Debridement: Selective debridement Anesthesia Used: 5% Lidocaine Gel Depth: Down to and including healthy tissue Percentage of wound debrided: 100 Instrument Used: 7mm curette, #15 blade Tissue Removed: Callus Severity: Limited To Skin Breakdown Amount of bleeding with debridement: None Patient tolerated procedure well Assessment/Plan Active Problems (This Medical Record has been edited. Action required.) Callus of foot (Acute) Assessment: Diabetic type II uncontrolled. Polyneuropathy of the feet. Callus to the left great toe Plan: Patient will be discharged from the wound center. Follow-up as needed. Patient is to invest in a mandolin and start paring down his calluses himself
== END 2019-06-11 23:59 ==
LOC: WC 08:29
PROVIDERS: Family Provider Family Medicine; PCP Family Medicine; Visit Provider Nurse Practitioner
DX: E11.42 Type 2 diabetes mellitus with diabetic polyneuropathy (principal); L84 Corns and callosities; E11.65 Type 2 diabetes mellitus with hyperglycemia; I10 Essential (primary) hypertension; Z79.4 Long term (current) use of insulin; Z79.899 Other long term (current) drug therapy; Z79.82 Long term (current) use of aspirin
CPT/HCPCS: 97597; 99213; G0463

== ENCOUNTER 2019-07-11 08:25 | Outpatient (RCR) | payer BC, SELFPAY ==
[2019-05-16 10:08] VITALS: BMI 101.9
[2019-06-12 00:59] VITALS: BP 162/91; PULSE 105; RESP 18; TEMP 37.4
[2019-07-11 08:31] VITALS: BP 163/82; PULSE 89; RESP 20; TEMP 37.1; BMI 101.9
--- NOTE | 2019-07-11 12:38 | HP.PCM_ITS ---
(1) Chronic ulcer of left foot with fat layer exposed Status: Acute Current Visit: No Code(s): L97.522 - Non-pressure chronic ulcer of other part of left foot with fat layer exposed (2) Type 2 diabetes mellitus with diabetic polyneuropathy Status: Acute Current Visit: No Code(s): E11.42 - Type 2 diabetes mellitus with diabetic polyneuropathy (3) Edema, lower extremity Status: Acute Current Visit: No Code(s): R60.0 - Localized edema (4) Callus of foot Status: Acute Current Visit: No Code(s): L84 - Corns and callosities History of Present Illness Date of Service: 07/11/19 Chief Complaint: Left lateral great toe medial side History of Wound: This 53-year-old diabetic male returns to the wound healing center today after being referred from my office for a small re-ulceration noted to the left medial great toe. Since he was seen in my office last week, the patient has been keeping the ulcer site offloaded with a cam walker with offloading insert. Patient is also been applying daily Cindi dressing changes with the help of his . Patient continues to relate that he feels the area continues to improve and he denies any signs or symptoms of local or systemic infection. Past Medical History Past Medical History: Chronic Problems (This Medical Record has been edited. Action required.) HTN (hypertension) (Chronic) Diabetes type 2, uncontrolled (Chronic) Gout (Chronic) Surgical History: - - previous I&D's in his perineal area and right inguinal area because of infection. The right inguinal infection was drained in 2005. Allergies/Adverse Reactions: Allergies No Known Allergies Allergy (Verified 01/30/19 14:33) Home Medications: Ambulatory Orders Medication Instructions Recorded Multivitamins,Therapeutic 1 tablet PO DAILY 04/26/13 [Multivitamin] [place]-3/Dha/Epa/Fish Oil [Fish Oil 1,200 mg PO BID 04/26/13 Dr 500 mg Softgel] metFORMIN HCl [Glucophage] 1,000 mg PO BIDCM 04/26/13 Cinnamon 2,000 mg PO DAILY 11/09/14 Aspirin [Aspirin, Baby] 81 mg PO DAILY@0800 11/02/17 Empagliflozin [Jardiance] 25 mg PO DAILY 11/02/17 Insulin Detemir [Levemir (BKC)] 47 units SC QHS 11/02/17 amlodipine 10 mg tablet 10 mg PO DAILY 30 Days #30 tab 11/09/18 - Family History Maternal Family History: Family History (This Medical Record has been edited. Action required.) Other Diabetes No pertinent history Paternal Family History: Family History (This Medical Record has been edited. Action required.) Other Diabetes Renal Disease Smoking Status: Never smoker Review of Systems Constitutional: Denies: Chills, Fever, Weight Change Cardiovascular: Denies: Chest Pain, Palpitations Respiratory: Denies: Cough, Shortness of Breath Gastrointestinal: Denies: Diarrhea, Nausea, Vomiting Skin: Reports: - - Ulcer left hallux Psychiatric: Denies: Anxiety, Depression - Physical Exam Vital Signs Temp Pulse Resp BP 98.7 F 89 20 H 163/82 H 07/11/19 08:31 07/11/19 08:31 07/11/19 08:31 07/11/19 08:31 General: Alert, Oriented x3, Cooperative, No apparent distress Extremities: No cyanosis, Capillary Refill Less than 3 Seconds - To all distal digits of each foot, No Calf Tenderness - Negative Suellen and Santiago sign, Edema - Bilateral lower extremity edema, Peripheral Pulses Normal - DP and PT pulses palpable bilateral Skin: Ulcer/ Wound - Ulcer to left medial hallux with fat layer exposed. Measurements noted below. The base is mixture of adherent slough, fibrin, granular tissue, biofilm, and surrounding hyperkeratotic tissue. There is no purulence, no malodor, no surrounding cellulitis, no probing to bone, no tracking, and no undermining. Wound Measurements and Assessment WC - Nurse 1 - General Ulcer Measurement Start: 07/11/19 08:30 Freq: Status: Active Protocol: Activity Type Activity Date Activity User E-Sign Co-Sign Detail Recorded Client Recorded Date Recorded By Document 07/11/19 08:31 DL [id number] 07/11/19 08:42 DL 07/11/19 08:31 Wound Center Nurse 1 [Ulcer Assessment] #5 L Grt Toe -Current Size (cm) - Length 0.1 -Current Size (cm) - Width 0.1 -Current Size (cm) - Depth 0.1 -Total Square Cm 0.01 -Photo Taken Yes -Classification - Thickness Unclassifiable (Eschar Covered ) -Exudate Amt None Present -Wound Margin Thickened -Granulation Amt Small (1-33%) -Granulation Quality [place] -Necrosis Amt Small (1-33%) -Necrotic Tissue Type Adherent Slough -Structure Exposed N/A -Texture (Keila-wound Skin Appearance) Callus,Scarring -Moisture (Keila-wound Skin Appearance Dry/Scaly ) -Color (Keila-wound Skin Appearance) No Abnormality -Temperature (Keila-wound Skin No Abnormality Appearance) (Pt Warm) -Tenderness on Palpation (Keila-wound No Skin Appearance) -Ulcer Cleansing Wound Cleanser -Foul Odor after Cleansing No -Anesthetic Used 4% Lidocaine Solution - Nurse 2 - General Ulcer CM Notes Start: 07/11/19 08:30 Freq: Status: Active Protocol: Activity Type Activity Date Activity User E-Sign Co-Sign Detail Recorded Client Recorded Date Recorded By Document 07/11/19 09:25 DV [id number] 07/11/19 09:27 DV 07/11/19 09:25 Wound Center Nurse 2 [Procedure/Treatment] -Time 09:26 -Correct Patient Yes -Correct Side, Site, Position Yes -Correct Procedure Yes -Procedure Performed Yes -Type of Procedure Debridement -Clinical Debridement Subcutaneous -Post Debridement Size (cm) - Length 0.2 -Post Debridement Size (cm) - Width 0.2 -Post Debridement Size (cm) - Depth 0.1 -Total Square Cm 0.04 -Wound/Ulcer Outcome Not Healed -Ulcer Cleansing Rinsed/ Irrigated with Saline -Foul Odor after Cleansing No -Bioengineered Tissue No -Bleeding Controlled with Pressure -Offloading Yes -Type of Offloading Camwalker -Treatment Response Procedure Tolerated Well [See Physician Procedure note for Specifics] Pain Scale: 0-10 Numeric [Pain] -Is Patient Pain Free? Yes Musculoskeletal: - - No tenderness with ulcer site manipulation Neurological: - - Epicritic sensation grossly absent to bilateral lower extremities consistent with patient's diabetic neuropathy status Psych/Mental Status: Normal Affect, Appropriate Debridement Note Post-Debridement Measurements/Treatment - Nurse 2 - General Ulcer CM Notes Start: 07/11/19 08:30 Freq: Status: Active Protocol: Activity Type Activity Date Activity User E-Sign Co-Sign Detail Recorded Client Recorded Date Recorded By Document 07/11/19 09:25 DV [id number] 07/11/19 09:27 DV 07/11/19 09:25 Wound Center Nurse 2 #5 L Grt Toe -Time 09:26 -Correct Patient Yes -Correct Side, Site, Position Yes -Correct Procedure Yes -Procedure Performed Yes -Type of Procedure Debridement -Clinical Debridement Subcutaneous -Post Debridement Size (cm) - Length 0.2 -Post Debridement Size (cm) - Width 0.2 -Post Debridement Size (cm) - Depth 0.1 -Total Square Cm 0.04 -Wound/Ulcer Outcome Not Healed -Ulcer Cleansing Rinsed/ Irrigated with Saline -Foul Odor after Cleansing No -Bioengineered Tissue No -Bleeding Controlled with Pressure -Offloading Yes -Type of Offloading Camwalker -Treatment Response Procedure Tolerated Well Pain Scale: 0-10 Numeric Is Patient Pain Free? Yes Wound debrided: Left medial hallux Laterality: Left Type of Debridement: Excisional debridement Anesthesia Used: 5% Lidocaine Gel Depth: in the subcutaneous layer Percentage of wound debrided: 100 Instrument Used: #15 blade Tissue Removed: Adherent slough, fibrin, devitalized subcutaneous tissue, hpk skin Severity: Fat Layer Exposed Amount of bleeding with debridement: Mild Bleeding Controlled with: Pressure Patient tolerated procedure well Assessment/Plan Assessment: Diabetic type II uncontrolled. Polyneuropathy of the feet. Callus to the left great toe Plan: This patient was carefully examined and evaluated again today for re- ulceration of his left hallux. A subcutaneous debridement was performed as noted in the clinical panel. The site continues to show good improvement since the patient was seen a week and a half ago in my office. Once debridement was completed, the site was carefully cleansed and then dressed with Cindi to the base followed by dry sterile dressing. Patient is to continue to offload the area with his cam walker with offloading insert. The importance of tight glycemic control as well as a diet high in protein were stressed to help optimize patient's ulcer healing potential. The importance of keeping pressure off of the ulcer site was also stressed again today. All questions were answered to the patient's satisfaction. Patient was again educated on all signs and symptoms of local and systemic infection, and he was instructed to go to the emergency room should he notice any of these. Otherwise, patient will follow back up at the wound healing center in 1 week to check on progress, or sooner if needed before then.
== END 2019-07-12 23:59 ==
LOC: WC 08:25
PROVIDERS: Family Provider Family Medicine; PCP Family Medicine; Visit Provider Podiatrist
DX: E11.621 Type 2 diabetes mellitus with foot ulcer (principal); E11.42 Type 2 diabetes mellitus with diabetic polyneuropathy; L97.522 Non-pressure chronic ulcer of other part of left foot with fat layer exposed; R60.0 Localized edema; L84 Corns and callosities; I10 Essential (primary) hypertension; Z79.4 Long term (current) use of insulin; Z79.899 Other long term (current) drug therapy; Z79.82 Long term (current) use of aspirin
CPT/HCPCS: 11042; 99213; G0463

== ENCOUNTER 2019-07-18 07:16 | Outpatient (RCR) | payer BC, SELFPAY ==
[2019-07-13 00:53] VITALS: BP 163/82; PULSE 89; RESP 20; TEMP 37.1
[2019-07-18 08:09] VITALS: BP 154/85; PULSE 102; RESP 18; TEMP 37.3; BMI 101.9
--- NOTE | 2019-07-18 08:37 | WC ---
healed photo taken
--- NOTE | 2019-07-18 08:53 | PN.PCM_ITS ---
(1) Chronic ulcer of left foot with fat layer exposed Status: Acute Current Visit: No Code(s): L97.522 - Non-pressure chronic ulcer of other part of left foot with fat layer exposed (2) Type 2 diabetes mellitus with diabetic polyneuropathy Status: Acute Current Visit: No Code(s): E11.42 - Type 2 diabetes mellitus with diabetic polyneuropathy (3) Edema, lower extremity Status: Acute Current Visit: No Code(s): R60.0 - Localized edema (4) Callus of foot Status: Acute Current Visit: No Code(s): L84 - Corns and callosities Type of Wound Date of Service: 07/18/19 Chief Complaint: Left lateral great toe medial side History of Wound: This 53-year-old diabetic male returns to the wound healing center today after being referred from my office for a small re-ulceration noted to the left medial great toe. Since he was seen in my office last week, the patient has been keeping the ulcer site offloaded with a cam walker with offloading insert. Patient is also been applying daily Cindi dressing changes with the help of his . Patient continues to relate that he feels the area continues to improve and he denies any signs or symptoms of local or systemic infection. Progress of Wound: Ulcer site appears healed today with no signs of infection. - Physical Exam Vital Signs Temp Pulse Resp BP 99.1 F 102 H 18 154/85 H 07/18/19 08:09 07/18/19 08:09 07/18/19 08:09 07/18/19 08:09 General: Alert, Oriented x3, Cooperative, No apparent distress Extremities: Capillary Refill Less than 3 Seconds, No Calf Tenderness, Peripheral Pulses Normal Skin: Ulcer/ Wound - Ulcer site to left hallux is healed today with no surrounding signs of infection appreciated. Wound Measurements and Assessment WC - Nurse 1 - General Ulcer Measurement Start: 07/18/19 08:09 Freq: Status: Active Protocol: Activity Type Activity Date Activity User E-Sign Co-Sign Detail Recorded Client Recorded Date Recorded By Document 07/18/19 08:09 DV [id number] 07/18/19 08:11 DV 07/18/19 08:09 Wound Center Nurse 1 [Ulcer Assessment] #5 L Grt Toe -Combined with other wound No -Current Size (cm) - Length 0.1 -Current Size (cm) - Width 0.1 -Current Size (cm) - Depth 0.1 -Total Square Cm 0.01 -Photo Taken No -Epithelialization None Present -Tunneling No -Undermining/Tunneling No -Circular Undermining No -Classification - Thickness Full Thickness without Exposed Support Structure -Change in Wound Grade/Stage No Query Text:If change please identify the Stage/Grade in the comment (ie. S2 G3) -Exudate Amt None Present -Wound Margin Indistinct, Non -Visible -Granulation Amt None Present (0 %) -Granulation Quality N/A -Slough/Fibrin No -Necrosis Amt None Present (0 %) -Structure Exposed None/Limited to Skin Breakdown -Texture (Keila-wound Skin Appearance) No Abnormality, Assessed -Moisture (Keila-wound Skin Appearance No Abnormality, ) Assessed -Color (Keila-wound Skin Appearance) No Abnormality, Assessed -Temperature (Keila-wound Skin No Abnormality Appearance) (Pt Warm) -Foul Odor after Cleansing No WC - Nurse 2 - General Ulcer CM Notes Start: 07/18/19 08:09 Freq: Status: Active Protocol: Activity Type Activity Date Activity User E-Sign Co-Sign Detail Recorded Client Recorded Date Recorded By Document 07/18/19 08:12 DV [id number] 07/18/19 08:28 DV 07/18/19 08:12 Wound Center Nurse 2 [Procedure/Treatment] -Time 08:21 -Correct Patient Yes -Correct Side, Site, Position Yes -Correct Procedure No -Procedure Performed No -Post Debridement Size (cm) - Length 0 -Post Debridement Size (cm) - Width 0 -Post Debridement Size (cm) - Depth 0 -Total Square Cm 0 -Wound/Ulcer Outcome Healed- Epithelialized [See Physician Procedure note for Specifics] Pain Scale: 0-10 Numeric [Pain] -Is Patient Pain Free? Yes Musculoskeletal: - - No tenderness with manipulation of previous ulcer site Neurological: - - Epicritic sensation grossly absent to bilateral lower extremities consistent with patient's diabetic status Psych/Mental Status: Normal Affect, Appropriate Debridement Note Post-Debridement Measurements/Treatment WC - Nurse 2 - General Ulcer CM Notes Start: 07/18/19 08:09 Freq: Status: Active Protocol: Activity Type Activity Date Activity User E-Sign Co-Sign Detail Recorded Client Recorded Date Recorded By Document 07/18/19 08:12 DV [id number] 07/18/19 08:28 DV 07/18/19 08:12 Wound Center Nurse 2 #5 L Grt Toe -Time 08:21 -Correct Patient Yes -Correct Side, Site, Position Yes -Correct Procedure No -Procedure Performed No -Post Debridement Size (cm) - Length 0 -Post Debridement Size (cm) - Width 0 -Post Debridement Size (cm) - Depth 0 -Total Square Cm 0 -Wound/Ulcer Outcome Healed- Epithelialized Pain Scale: 0-10 Numeric Is Patient Pain Free? Yes No debridement was completed today Assessment/Plan Assessment: Diabetic type II uncontrolled. Polyneuropathy of the feet. Callus to the left great toe Plan: This patient was carefully examined and evaluated again today for re- ulceration of his left hallux. No debridement was performed today as patient's ulcer site appears to be healed with no signs of local infection noted. Patient is to continue to offload the area with his cam walker with offloading insert until Monday as the skin continues to strengthen and remodel, and then he is a loud to go back to work starting Monday. Patient also given prescription for new diabetic shoes. The importance of tight glycemic control as well as a diet high in protein were stressed again today. The importance of keeping pressure off of each medial hallux was also stressed again today. All questions were answered to the patient's satisfaction. Patient was again educated on all signs and symptoms of local and systemic infection, and he was instructed to go to the emergency room should he notice any of these. At this time, the patient will be discharged from the wound healing center. He is instructed to follow back up for any reason if needed.
== END 2019-08-10 23:59 ==
LOC: WC 07:16
PROVIDERS: Family Provider Family Medicine; PCP Family Medicine; Visit Provider Podiatrist
DX: Z09 Encounter for follow-up examination after completed treatment for conditions other than malignant neoplasm (principal); E11.42 Type 2 diabetes mellitus with diabetic polyneuropathy; L84 Corns and callosities; R60.0 Localized edema
CPT/HCPCS: 99212; G0463

== ENCOUNTER → 2019-09-13 | Outpatient (CLI) | payer BC, SELFPAY ==
[2019-07-19 11:22] VITALS: BMI 101.9
--- NOTE | 2019-09-13 10:09 | RAD_ITS ---
STUDY: X-RAY - RIGHT FOOT CLINICAL: Male, 53 years old. Fell last night, neuropathy in foot but feels pain in the ankle TECHNIQUE: 3 view(s) of the foot. COMPARISON: None. FINDINGS: There is an enthesophyte involving the posterior superior calcaneus at the site of insertion of the Achilles tendon. Plantar spur. Talar neck. Degenerative changes of the tarsal bones. Normal metatarsi. Normal metatarsophalangeal joint of the great toe. Normal tibial and fibular sesamoid bones. Normal interphalangeal joint of the great toe. Normal phalanges of the great toe. Normal second through fifth metatarsophalangeal joints. Normal interphalangeal joints and phalanges of the lesser toes. There is non-specific soft tissue swelling of the foot. RAD/Foot min 3 Views IMPRESSION: Soft tissue swelling. Degenerative changes. Calcaneal spurs. Electronically Signed: Arsen Pena, at 10:40 EDT , Service support ,
--- NOTE | 2019-09-13 10:12 | RAD_ITS ---
STUDY: X-RAY - RIGHT ANKLE REASON FOR EXAM: Male, 53 years old. Fell last night, neuropathy in foot but feels pain in the ankle TECHNIQUE: 3 view(s) of the ankle. COMPARISON: None. FINDINGS: Normal visualized distal tibia and fibula. Normal medial and lateral malleoli. Normal tibiotalar articulation and ankle mortise. Calcaneal spurs. Talar neck beak. Degenerative spurring at the proximal tarsal joints. Soft tissue swelling. RAD/Ankle min 3 Views IMPRESSION: Degenerative changes. Soft tissue swelling. Electronically Signed: Arsen Pena, at 10:38 EDT , Service support ,
== END | disposition home or self-care (01) ==
PROVIDERS: PCP Family Medicine; Referring Provider Family Medicine; Visit Provider Family Medicine
DX: S93.601A Unspecified sprain of right foot, initial encounter (principal)
CPT/HCPCS: 73610; 73630

== ENCOUNTER → 2019-12-07 | Outpatient (CLI) | payer BC, SELFPAY ==
[2019-07-19 11:22] VITALS: BMI 101.9
--- NOTE | 2019-12-07 09:19 | US_ITS ---
STUDY: SUPERFICIAL ULTRASOUND - RIGHT SIDE OF NECK REASON FOR EXAM: Male, 54 years old. RT NECK SWELLING ABOVE CLAVICLE- X 1 WEEK TECHNIQUE: A superficial ultrasound was performed with real-time and static zaragoza-scale imaging. Cinegraphic images were also obtained. COMPARISON: None. FINDINGS: No cystic or solid masses are identified. There is no demonstrated fluid collection. Visualized soft tissue planes appear normal. US/Head/Neck Soft Tissue IMPRESSION: No demonstrated abnormality. Electronically Signed: Emanuel Bhagat MD at 4:25 EDT , Service support ,
== END | disposition home or self-care (01) ==
LOC: US 09:16
PROVIDERS: PCP Family Medicine; Referring Provider Family Medicine; Visit Provider Family Medicine
DX: R60.9 Edema, unspecified (principal)
CPT/HCPCS: 76536

== ENCOUNTER → 2020-02-14 | Outpatient (CLI) | payer BC, SELFPAY ==
[2020-01-03 10:13] VITALS: BMI 101.9
--- NOTE | 2020-02-14 12:04 | RAD_ITS ---
STUDY: X-RAY - RIGHT ANKLE REASON FOR EXAM: Male, 54 years old. CREPITUS IN ANKLE, NKI -- PT HAS NEUROPATHY AND SAYS NO PAIN TECHNIQUE: 3 view(s) of the ankle. COMPARISON: Comparison is made with prior examination dated 09/13/2019. FINDINGS: Normal visualized distal tibia and fibula. Normal medial and lateral malleoli. Normal tibiotalar articulation and ankle mortise. Calcaneal spurs. Talar neck beak. Degenerative spurring at the tarsal joints. Soft tissue swelling. RAD/Ankle min 3 Views IMPRESSION: Degenerative changes at the level of the tarsal articulations with soft tissue swelling. Calcaneal spurs. Electronically Signed: Arsen Pena, at 14:55 EDT , Service support ,
== END | disposition home or self-care (01) ==
LOC: MTRAD 12:00
PROVIDERS: PCP Family Medicine; Referring Provider Family Medicine; Visit Provider Family Medicine
DX: M25.571 Pain in right ankle and joints of right foot (principal)
CPT/HCPCS: 73610

== ENCOUNTER 2020-03-20 08:00 | Outpatient (RCR) | payer BC, SELFPAY ==
[2020-01-03 10:13] VITALS: BMI 101.9
--- NOTE | 2020-02-21 08:55 | HP.PTEVAL_ITS ---
Patient's Visit Information MITESH THOMPSON is a 54 year old M referred to Physical Therapy by Dr. Nguyễn Simmons MD with a diagnosis of Neuropathy, falls, balance loss. Date of Evaluation: 02/21/20 Physical Therapist: Ludwig Sanchez, SRINIVAS, OCS, CSCS - Visit Plan Frequency: 2x /Week Duration: 2 Months Plan: 2x/week for 6-8 weeks for... 1. Pt to get AFOs adn is already scheduled for this appropriately. 2. Educate on balance safety with vest deficits and sensation deficits. 3. Vest balance ex with foam and OR eyes closed. 4. Stretch R gastroc-soleus. 5. Strengthening of B ankles and coordiantion here with inv/ev - Subjective R foot drop from neuropathy. 3 falls in last year and thought he was clumsy. Just noticing falling and then doctor noticed foot drop and sent for therapy. No pain. Has B neuroapthy worse on R. Gets foot ulcers and can cut them with scalpel without numbing. No braces but will get AFO from [facility](has appt). No AD. Works at [employer] nd down at desk, Fell 3x at work. Hasn't missed work. Sleep is OK. [facility] ADLs are OK at home, helps with shoes. Hobbies include work. - Objective Walks with R foot slap, wide HAYDEN and slow but safe on firm flat surface. Does catch R toe one time today but recovers I. Trasnfers are I. steps require two rails and pulling due to lack of FW weight shift but are reciprocal. Strength in hips and knees 5/5. R ankle DF 2+, ev/inv 3+, PF 3+, L ankle DF 3+, PF 3+, inv/ev3+ however R inversion very limited and tight in peroneals due to masssive pes planus which is present L >R but B. Knee adn hip aROM WFL. Sensation is poor in B feet adn half way up shins to gross light touch, normal above that leve. Coordination to reciprocal toe tap is poor and heel tap is at slight deficit. reflexes 0/3 patella and achilles B. Tightness present in HS min, and R gastroc soleus max and L mod. Also L peroneals mod. Pt able to walk VOR but slow. - Balance Scores Functional Gait Assessment Score: 22 % Disability: 26.6700 CATSIB Score (Max score 120 seconds): 92 - Goals Goal 1:: No falls x 4 weeks Goal Time Frame: 6-8 Weeks Goal 2:: FGA to diminish fall risk Goal Time Frame: 6-8 Weeks Goal 3:: Pt I appropriate HEP to minimze future problems Goal Time Frame: 4-6 Weeks Goal 4:: Pt feel 75% improvement in overall balance Goal Time Frame: 6-8 Weeks - Rehabilitation Potential Physical Therapy Diagnosis: Pt with frequent falls due to wekaness, and sensation loss from nueropathy and vestibular deficits Rehabilitation Potential: Fair - Anticipated Interventions Patient/Client Instruction: Educate patient on: Condition, Plan of Care For the Purpose of:: To improve muscle performance and motor function, To increase tolerance to activity/condition/position, To improve gait and locomotor functions, To improve safety Therapeutic Exercise to Include: Strength training, Balance training, Flexibilty training, Gait and locomotor training, Neuromotor development For the Purpose of:: To increase ROM, To improve muscle performance and motor function, To increase tolerance to activity/condition/position, To improve ability of physical actions for home/community/work/leisure, To improve gait and locomotor functions, To improve health of tissue, To improve balance, To improve safety with gait Thank you for the opportunity to evaluate your patient. For Medicare and Medicare HMO plans, please review the plan of care and approve it. It will need to be FAXED BACK to us at [phone] for Medicare purposes. For Medicare only, by signing this I certify the plan of care. Please let me know if there are questions or concerns regarding this plan of care. Physician Signature: Date:
--- NOTE | 2020-03-20 08:49 | HP.PTDCSUM ---
It has been my pleasure to treat MITESH THOMPSON referred by Dr. Nguyễn Simmons MD, with the diagnosis of Neuropathy, falls, balance loss for a total of 7 visit(s). Discharge Date: 03/20/20 Please see the following information for a summary of their discharge status. Subjective: Feeling muscle bein used more. Moving a little better. 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 No falls. HEP: bands at home. Stretcheing at home but not like I should. Feel safe as long as goes slow. Activities are normal including job slow and steady. % Improvement: 40 Objective/Function: -2 active DF R and 5 degrees prom DF, 3 strength R DF. FGA +3 overall. Moving well and still some R foot slap. Goal 1:: No falls x 4 weeks Goal Progress: Goal Met Goal 2:: FGA 26/30 to diminish fall risk Goal Progress: Progressing Goal 3:: Pt I appropriate HEP to minimze future problems Goal Progress: Goal Met Goal 4:: Pt feel 75% improvement in overall balance Goal Progress: Progressing Plan: Better. Requests d/c adn ulises continue via HEP and get AFOs If there are questions or concerns regarding this patient's physical therapy, please feel free to call me at [phone]. Thank you for the referral of this patient. Sincerely, Ludwig Sanchez, DPT, OCS, CSCS
== END 2020-03-20 19:00 | disposition home or self-care (01) ==
LOC: PT 08:00
PROVIDERS: PCP Family Medicine; Referring Provider Family Medicine; Visit Provider Family Medicine
DX: M21.371 Foot drop, right foot (principal)
CPT/HCPCS: 97110; 97162; 97164

== ENCOUNTER → 2020-05-18 14:20 | Outpatient (CLI) | payer BC, SELFPAY ==
[2020-01-03 10:13] VITALS: BMI 101.9
--- NOTE | 2020-05-18 15:25 | NEURO ---
NCS and/or EMG Patient Report Ordering Doctor: Nguyễn Simmons DATE OF SERVICE: 05/18/20 Indication: Right foot drop causing frequent tripping. History of diabetes and subsequent peripheral polyneuropathy. Evaluate for peripheral nerve injury. Findings: Nerve conduction studies were performed in the right lower extremity. Some comparisons were performed on the left. The right peroneal motor study recording the extensor digitorum brevis showed an absent response. No conduction block or focal slowing was present across the fibular neck. The right peroneal motor study recording the tibialis anterior showed a slightly low amplitude, but normal conduction velocity (symmetric with the left). The right tibial motor study recording the abductor hallucis brevis showed an absent response. Right sural sensory response showed an absent response. Right superficial peroneal sensory response showed an absent response. Needle EMG of the right lower extremity muscles was performed. The paraspinal muscles were not examined due to the patients history of diabetes. Active denervation was present in distal muscles. Motor units were large, long and polyphasic in distal muscles. The right vastus medialis muscle was normal. Motor units in the right tensor fascia latae muscle were slightly large and long duration. Impression: This is an abnormal study. There is electrophysiologic evidence of an active and chronic, axonal, sensorimotor peripheral polyneuropathy. In addition, there was electrophysiologic evidence suggestive, but not diagnostic, of a superimposed chronic L5 radiculopathy. Clinical/radiographical correlation is recommended. Darion Wheeler D.O.
== END ==
PROVIDERS: PCP Family Medicine; Referring Provider Family Medicine; Visit Provider Family Medicine
DX: M21.371 Foot drop, right foot (principal); M21.372 Foot drop, left foot
CPT/HCPCS: 95886; 95909

== ENCOUNTER → 2020-07-31 10:54 | Outpatient (CLI) | payer BC, SELFPAY ==
[2020-01-03 10:13] VITALS: BMI 101.9
[2020-07-31 12:56] LABS: AST(SGOT) 16 U/L (15-37); Alanine Aminotransfer ALT/SGPT 33 U/L (16-61); Albumin, Serum 3.8 g/dL (3.2-5.0); Alkaline Phosphatase 59 U/L (45-117); Anion Gap 7 (5-15); BUN 15 mg/dL (7-18); BUN/Creat Ratio 14.6 RATIO (10-20); Calcium,Total 8.8 mg/dL (8.5-10.1); Chloride 108 mmol/L (98-107); Cholesterol 235 mg/dL (200); Creatinine, Serum 1.03 mg/dL (0.70-1.30); EST Glomerular Filtration Rate 80 mL/min (>60); Est Glom Filt Rate - Afr Amer 97 mL/min (>60); Globulin 3.8 g/dL (2.2-4.2); Glucose 135 mg/dL (74-106); High Density Lipoprotein 39 mg/dL; Potassium 4.3 mmol/L (3.5-5.1); Protein, Total 7.6 g/dL (6.4-8.2); Sodium Level 137 mmol/L (136-145); Triglycerides 523 mg/dL
[2020-07-31 14:17] LABS: Hemoglobin A1c 8.1 % (3.8-5.6)
[2020-07-31 15:16] LABS: Microalbumin:Creatinine Ratio 260.4 mg/g CRE (<30 mg/g CRE)
== END ==
PROVIDERS: PCP Family Medicine; Referring Provider Family Medicine; Visit Provider Family Medicine
DX: E11.9 Type 2 diabetes mellitus without complications (principal)
CPT/HCPCS: 36415; 80053; 80061; 82043; 82570; 83036

== ENCOUNTER → 2020-08-28 07:57 | Outpatient (CLI) | payer BC, SELFPAY ==
[2020-01-03 10:13] VITALS: BMI 101.9
--- NOTE | 2020-08-28 07:59 | ART_ITS ---
Reason For Study: Bilateral calf pain Procedure A bilateral lower extremity continuous wave Doppler with analog waveform analysis and ankle brachial indexes. Unable to determine classification of waveforms due to a irregular tachy arrhythmia with a heart rate of 120 bpm. Left Segmental Pressures Left brachial= 144mmHg. Left posterior tibial artery = 172mmHg. Left dorsalis pedis artery = 159mmHg. Left digit = 128 mmHg. Right Segmental Pressures Right brachial= 137mmHg. Right posterior tibial artery = 181mmHg. Right dorsalis pedis artery = 163mmHg. Right digit = 109 mmHg. Indices The right ankle brachial index by the dorsalis pedis is 1.13. The right ankle brachial index by the posterior tibial artery is 1.26. The right digital-brachial index is 0.76. The left ankle brachial index by the dorsalis pedis is 1.10. The left ankle brachial index by the posterior tibial artery is 1.19. The left digital-brachial index is 0.89. Interpretation Summary Normal bilateral lower extremity ankle-brachial indices 1.26 on the right and 1.19 on the left. Right digital brachial index 0.76 and left digital brachial index 0.89 both normal Doppler waveform analysis was unable to be obtained secondary to an irregular tachyarrhythmia with a heart rate of 120 Ordering Physician: Nguyễn Simmons Referring Physician: Nguyễn Simmons Performed By: Maegan Peterson RVT
== END ==
PROVIDERS: PCP Family Medicine; Referring Provider Family Medicine; Visit Provider Family Medicine
DX: M79.662 Pain in left lower leg (principal); M79.661 Pain in right lower leg
CPT/HCPCS: 93922

== ENCOUNTER → 2020-12-18 09:39 | Outpatient (CLI) | payer BC, SELFPAY ==
[2020-01-03 10:13] VITALS: BMI 101.9
[2020-12-18 12:26] LABS: Absolute Lymphocyte Count 1.73 X10^3/uL (0.83-4.51); Absolute Neutrophil Count 3.9 X10^3/uL (2.0-7.7); Basophil# 0.08 X10^3/uL; Basophil% 1.2 % (0-1); Eosinophil# 0.25 X10^3/uL; Eosinophils% 3.6 % (0-5); Hematocrit 54.1 % (40-54); Lymphocyte # 1.73 X10^3/ul (0.83-4.51); Lymphocyte % 24.9 % (19-41); Mean Corp Hgb Conc 33.5 g/dL (32-36); Mean Corpuscular Hgb 28.9 pg (27.0-32.0); Mean Corpuscular Volume 86.4 fL (80-94); Mean Platelet Vol. 9.9 fl (6.2-12.0); Monocyte# 0.84 X10^3/uL; Monocyte% 12.1 % (0-10); NRBC Flagged by Analyzer 0 % (0-5); Platelet Count 237 K/mm3 (150-450); RBC Distribution Width CV 14.5 % (11.6-14.6); RBC Distribution Width SD 44.9 fl (35.1-43.9); Red Blood Count 6.26 M/mm3 (4.6-6.2)
[2020-12-18 12:55] LABS: ALB/GLOB Ratio 0.9 RATIO (0.9-2.4); AST(SGOT) 14 U/L (15-37); Alanine Aminotransfer ALT/SGPT 30 U/L (16-61); Albumin, Serum 3.7 g/dL (3.2-5.0); Alkaline Phosphatase 63 U/L (45-117); Anion Gap 9 (5-15); BUN 15 mg/dL (7-18); Calcium,Total 8.6 mg/dL (8.5-10.1); Chloride 103 mmol/L (98-107); Cholesterol 235 mg/dL (200); EST Glomerular Filtration Rate 83 mL/min (>60); Est Glom Filt Rate - Afr Amer 101 mL/min (>60); Globulin 4.1 g/dL (2.2-4.2); Glucose 143 mg/dL (74-106); High Density Lipoprotein 37 mg/dL; Potassium 4.1 mmol/L (3.5-5.1); Protein, Total 7.8 g/dL (6.4-8.2); Sodium Level 136 mmol/L (136-145); Thyroid Stim Hormone (TSH) 1.12 uIU/mL (0.358-3.74); Triglycerides 664 mg/dL
[2020-12-18 15:06] LABS: Hemoglobin 18.1 g/dL (13.0-16.5)
== END ==
PROVIDERS: PCP Family Medicine; Visit Provider Family Medicine
DX: E78.5 Hyperlipidemia, unspecified (principal); R53.83 Other fatigue; R07.9 Chest pain, unspecified
CPT/HCPCS: 36415; 80053; 80061; 84443; 85025

== ENCOUNTER → 2020-12-21 05:53 | Outpatient (CLI) | payer BC, SELFPAY ==
[2020-01-03 10:13] VITALS: BMI 101.9
--- NOTE | 2020-12-21 11:56 | STRESSREP ---
Stress Test Report Pharmacologic myocardial perfusion stress test. 55-year-old man with a history of chest pain. Stress protocol: Resting EKG demonstrates a junctional tachycardia with a rate of 110 bpm. Resting blood pressure is 152/92 mmHg. 0.4 mg of regadenoson was infused per usual protocol followed by rapid intravenous saline flush injection continuous EKG monitoring was performed. The maximum heart rate attained was 116 bpm which was 69% of maximum predicted heart rate the maximum workload was 1 metabolic equivalent. The patient appeared to have maintained a regular rhythm throughout the infusion. At rest there were no ST or T wave changes noted to suggest abnormal flow reserve and at peak infusion nonspecific ST changes were noted. No clinical angina was noted the final blood pressure was 138/82 mmHg. Myocardial perfusion protocol. 14.8 mCi of technetium 99m sestamibi was injected at rest. 0.4 mg of regadenoson was infused per usual protocol. At peak infusion 44.9 mCi of technetium 99m sestamibi was injected stress images were obtained stress and rest images were reconstructed and compared in the short axis vertical long and horizontal long axis. Gated images were also obtained per Perfusion SPECT analysis: Review of the stress images demonstrate normal uptake of tracer noted in all areas of the myocardium. The resting images similarly demonstrate normal uptake of tracer noted in all areas of the myocardium. No obvious areas of reversibility are noted to suggest ischemia and no previous infarct is noted. Gated SPECT analysis: The gated ejection fraction is 49%. Conclusion: Normal pharmacologic myocardial perfusion stress test. Preserved ejection fraction.
== END ==
PROVIDERS: PCP Family Medicine; Referring Provider Family Medicine; Visit Provider Family Medicine
DX: R07.9 Chest pain, unspecified (principal)
CPT/HCPCS: 78452; 93017; A9500; A4216; J2785

== ENCOUNTER → 2021-01-05 07:05 | Outpatient (CLI) | payer BC, SELFPAY ==
[2020-12-21 13:13] VITALS: BMI 52.9
--- NOTE | 2021-01-05 07:16 | ECHOCS_ITS ---
Reason For Study: AFIB/FLUTTER Procedure This was a 2D Doppler, Color Flow transthoracic echocardiogram. The study was technically difficult. Due to body habitus. Contrast injection was performed. Exam performed in department. Left Ventricle Normal LV size. Left ventricular systolic function is normal. The estimated ejection fraction is 60 %. No regional wall motion abnormalities noted. Right Ventricle Normal RV size. Normal systolic function. Atria Normal left atrium. Normal right atrium. Mitral Valve Mitral valve not well visualized. Tricuspid Valve The tricuspid valve is not well visualized. Aortic Valve The aortic valve is not well visualized. Pulmonic Valve The pulmonic valve is not well visualized. Great Vessels Normal aortic root. Pericardium/Pleural No pericardial effusion. MMode/2D Measurements & Calculations LVIDd: 6.1 cm IVSd: 1.3 cm Ao root diam: 3.5 cm LVIDs: 4.5 cm LVPWd: 1.4 cm RVDd: 4.1 cm FS: 25.2 % LAV(MOD-bp): 66.9 ml LVAd ap4: 29.8 cm2 LVAd ap2: 32.7 cm2 LAV(MOD-bp) Indexed: 21.3 ml/m2 LVLd ap4: 8.0 cm LVLd ap2: 8.4 cm LAV(MOD-sp2): 65.2 ml EDV(MOD-sp4): 89.7 ml EDV(MOD-sp2): 107.2 ml LAV(MOD-sp4): 66.8 ml EDV(sp4-el): 94.7 ml EDV(sp2-el): 107.6 ml LVAs ap4: 19.5 cm2 LVAs ap2: 20.7 cm2 LVLs ap4: 7.3 cm LVLs ap2: 7.0 cm ESV(MOD-sp4): 44.9 ml ESV(MOD-sp2): 51.3 ml ESV(sp4-el): 44.0 ml ESV(sp2-el): 51.8 ml EF(MOD-sp4): 49.9 % EF(MOD-sp2): 52.2 % EF(sp4-el): 53.5 % SV(MOD-sp4): 44.8 ml SV(MOD-sp2): 56.0 ml SV(sp4-el): 50.7 ml LA dimension(2D): 4.5 cm LA A4 area: 21.4 cm2 RA A4 area: 21.4 cm2 Doppler Measurements & Calculations MV E max sumanth: 101.9 cm/sec Ao V2 max: 105.4 cm/sec LV V1 max: 79.1 cm/sec Ao max P.4 mmHg LV V1 max P.5 mmHg PA V2 max: 94.3 cm/sec ECHO/Echo Complete W/ Contrast Interpretation Summary Normal LV size. Left ventricular systolic function is normal. The estimated ejection fraction is 60 %. Contrast injection was performed. Ordering Physician: Thad Auguste Referring Physician: Nguyễn Simmons Performed By: Mariza Lee, CLIFTON, RVT
== END ==
PROVIDERS: PCP Family Medicine; Referring Provider Internal Medicine Cardiovascular Disease; Visit Provider Internal Medicine Cardiovascular Disease
DX: I47.1 Supraventricular tachycardia (principal)
CPT/HCPCS: 93306; Q9957; C8929; J3490

== ENCOUNTER → 2021-01-25 10:48 | Day surgery (SDC) | payer BC, SELFPAY ==
[2020-12-21 13:13] VITALS: BMI 52.9
--- NOTE | 2021-01-05 07:18 | RAD_ITS ---
STUDY: X-RAY CHEST REASON FOR EXAM: Male, 55 years old. SOB TECHNIQUE: PA and lateral views of the chest. COMPARISON: Comparison is made with prior examination dated 01/07/2015. FINDINGS: Hyperinflation. The lungs are clear. There is no demonstrated pleural abnormality. Normal size heart. Normal mediastinum and salvador. Normal visualized pulmonary arteries. Normal visualized aortic arch and descending thoracic aorta. There are degenerative changes of the visualized thoracic spine. Normal visualized ribs, clavicles, and shoulders. There is no demonstrated abnormality of the visualized soft tissue structures of the upper abdomen. RAD/Chest PA and Lateral IMPRESSION: Hyperinflation. Electronically Signed: Arsen Pena MD at 11:05 EDT , Service support ,
[2021-01-05 08:39] LABS: Anion Gap 6 (5-15); BUN 17 mg/dL (7-18); BUN/Creat Ratio 17.1 RATIO (10-20); Calcium,Total 8.6 mg/dL (8.5-10.1); Chloride 103 mmol/L (98-107); Creatinine, Serum 0.99 mg/dL (0.70-1.30); EST Glomerular Filtration Rate 84 mL/min (>60); Est Glom Filt Rate - Afr Amer 101 mL/min (>60); Glucose 184 mg/dL (74-106); Potassium 4.1 mmol/L (3.5-5.1); Sodium Level 138 mmol/L (136-145)
[2021-01-21 10:27] VITALS: BMI 52.9
--- NOTE | 2021-01-25 10:42 | PCM.HP.CAR ---
HPI - General HPI Narrative MITESH THOMPSON, is a 55 M who presents here today for a cardioversion. He has a hx of obesity, hyperlipidemia, hypertriglyceridemia, obstructive sleep apnea, hypertension who says that a few days ago he noticed that he was getting rather fatigued. He presented to see his primary care physician who obtained an EKG. He was noted to be in some form of tachycardia and was referred for a stress test. He denies any chest pain paroxysmal nocturnal dyspnea or pedal edema he does get short of breath with minimal exertion. Interestingly he has an EKG from January 2015 demonstrating sinus tachycardia. He has had no dizziness or diaphoresis no near syncope or syncope. Review of the EKG from your office demonstrated what appeared to be an atrial tachycardia with a rate of 110 bpm. He appears to stay in this rhythm. In lead V1 there appears to be an additional atrial deflection between the QRS complexes. [facility] Medical History Arthritis Callus of foot Chronic foot ulcer Diabetes Diabetes type 2, uncontrolled Diabetic foot ulcer Edema, lower extremity Essential hypertension Gout Hyperlipidemia Junctional tachycardia (12/21/20) Morbid obesity Obstructive sleep apnea Perineal abscess Scrotum, abscess Type 2 diabetes mellitus with diabetic polyneuropathy Home Medications metformin 1,000 mg PO BIDCM 04/26/13 [History Last Taken 01/15/15] multivitamin with folic acid 1 tab PO DAILY 04/26/13 [History Last Taken 01/15/15] Cinnamon 2,000 mg PO DAILY 11/09/14 [History Last Taken 01/15/15] insulin detemir U-100 47 units SUBCUT QHS 11/02/17 [History Last Taken Unknown] amlodipine 10 mg tablet 10 mg PO DAILY 30 Days #30 tab 11/09/18 [History Last Taken Unknown] apixaban 5 mg tablet 5 mg PO BID #60 tab 12/21/20 [Rx Last Taken Unknown] ascorbate calcium (vitamin C) 500 mg tablet 500 mg PO DAILY 12/21/20 [History Last Taken Unknown] carvedilol 12.5 mg tablet 12.5 mg PO BID #60 tab 12/21/20 [Rx Last Taken Unknown] empagliflozin 25 mg tablet 25 mg PO DAILY 12/21/20 [History Last Taken Unknown] icosapent ethyl 1 gram capsule 2 g PO BID #60 cap 12/21/20 [Rx Last Taken Unknown] magnesium oxide 400 mg PO DAILY 12/21/20 [History Last Taken Unknown] Allergy/AdvReac Type Severity Reaction Status Date / Time No Known Allergies Allergy Verified 12/21/20 14:46 Family History Other Diabetes Social History Smoking Status: Never smoker alcohol intake: never ROS Constitutional Constitutional: Denies anorexia, body ache(s), change in weight or fatigue Eyes Eyes: Denies blurry vision, change in vision, diplopia or eye pain ENT HEENT: Denies bleeding gums, dizziness, epistaxis, headache(s), loss taste/smell or nasal discharge Cardiovascular Cardiovascular: Denies chest pain, chest pain at rest, chest pain with activity, dizziness, dyspnea, lightheadedness, nausea or palpitations Respiratory/Chest Respiratory/Chest: Denies cough or hemoptysis Gastrointestinal Gastrointestinal: Denies abdominal pain, belching, bloating, diarrhea, heartburn or nausea Musculoskeletal Musculoskeletal: Reports abnormal gait and difficulty walking Neurologic Neurologic: Denies abnormal hearing, abnormal movements or abnormal speech Vital Signs Vital Signs Vital Signs: Weight Weight: 446 lb Body Mass Index (BMI) 52.9 Physical Exam Const alert, oriented x3, no apparent distress and healthy appearing Nutritional Appearance: obese HEENT normocephalic, head/scalp atraumatic, hearing grossly normal bilaterally, external ears normal, nasal mucous membranes and turbinates normal and moist oral mucous membranes Eyes PERRL, EOMs intact bilaterally, conjunctivae normal and no scleral icterus Neck full ROM, no lymphadenopathy, supple, no JVD and no carotid bruits Chest palpation of chest normal Resp normal air movement Auscultation: clear to auscultation bilaterally Cardio regular rate, regular rhythm, S1 normal heart sound, no murmurs, no rub, no gallops and no clicks GI normal to inspection, nondistended, normoactive bowel sounds, soft to palpation, non-tender and non-distended Neuro oriented x3, CN's II-XII intact bilaterally, moves all extremities, no focal motor deficits and no sensory deficits noted Cardiology Labs/Tests Cardiology Labs/Tests: Cardiology Impression Chest X-Ray 01/05/21 07:18 IMPRESSION: Hyperinflation. Electronically Signed: Arsen Pena MD at 11:05 EDT , Service support , Rhythm: EKG: ECHO: 12/2020: Normal LV size. Left ventricular systolic function is normal. The estimated ejection fraction is 60 %. Contrast injection was performed. Stress Test:12/2020: Normal pharmacologic myocardial perfusion stress test. Preserved ejection fraction. Cardiac Cath: PCI: CT Surgery: Holter monitor: EPS: PPM: CXR: Chest CT Scan: Assessment & Plan Assessment/Plan (1) Atrial tachycardia: PLAN: Patient will proceed with cardioversion with follow-up accordingly afterwards. He has been anticoagulated for at least 3 weeks.
== END ==
PROVIDERS: PCP Family Medicine; Referring Provider Internal Medicine Cardiovascular Disease; Visit Provider Internal Medicine Cardiovascular Disease
DX: I47.1 Supraventricular tachycardia (principal); E66.01 Morbid (severe) obesity due to excess calories; E78.5 Hyperlipidemia, unspecified; I10 Essential (primary) hypertension; G47.33 Obstructive sleep apnea (adult) (pediatric); E11.42 Type 2 diabetes mellitus with diabetic polyneuropathy; Z68.43 Body mass index [BMI] 50.0-59.9, adult; Z79.4 Long term (current) use of insulin; Z79.02 Long term (current) use of antithrombotics/antiplatelets; Z79.899 Other long term (current) drug therapy
CPT/HCPCS: 36415; 71046; 80048; 93005

== ENCOUNTER → 2021-05-20 12:45 | Outpatient (CLI) | payer BC, SELFPAY ==
--- NOTE | 2021-05-20 13:10 | RAD_ITS ---
STUDY: X-RAY - RIGHT FOOT CLINICAL: Male, 55 years old. ULCER TECHNIQUE: For view(s) of the foot. COMPARISON: Right foot x-ray dated SEPTEMBER 13, 2019 FINDINGS: A multitude of chronic abnormalities are present including cortical thickening and spurring. No visualized acute fractures. No x-ray evidence of osteomyelitis. A displaced corticated ossicles near the fifth metatarsal head suggesting prior trauma. Moderate cortical spurring is seen over the dorsum of the tarsal bones. A small plantar calcaneal spur is also visualized. Normal talus, calcaneus, and tarsal bones. Normal visualized subtalar, talonavicular, calcaneocuboid, tarsal and tarsometatarsal articulations. The soft tissue structures are unremarkable. RAD/Foot min 3 Views IMPRESSION: Scattered degenerative changes Electronically Signed: Anam Flores MD at 16:13 EST , Service support ,
[2021-05-20 13:32] LABS: Erythrocyte Sedimentation Rate 8 mm/hr (0-20)
[2021-05-20 13:33] LABS: Absolute Lymphocyte Count 1.78 X10^3/uL (0.83-4.51); Basophil# 0.04 X10^3/uL; Basophil% 0.6 % (0-1); Eosinophil# 0.17 X10^3/uL; Eosinophils% 2.5 % (0-5); Hemoglobin 18.2 g/dL (13.0-16.5); Lymphocyte # 1.78 X10^3/ul (0.83-4.51); Mean Corp Hgb Conc 34.3 g/dL (32-36); Mean Corpuscular Hgb 29.4 pg (27.0-32.0); Mean Corpuscular Volume 85.6 fL (80-94); Mean Platelet Vol. 9.3 fl (6.2-12.0); Monocyte# 0.78 X10^3/uL; Monocyte% 11.4 % (0-10); NRBC Flagged by Analyzer 0 % (0-5); Neutrophil # 4.02 X10^3/uL (2.7-7.7); Neutrophil % 58.8 % (47-70); Platelet Count 258 K/mm3 (150-450); RBC Distribution Width CV 13.7 % (11.6-14.6); RBC Distribution Width SD 42.2 fl (35.1-43.9); Red Blood Count 6.19 M/mm3 (4.6-6.2); White Blood Count 6.8 K/mm3 (4.4-11.0)
[2021-05-20 13:51] LABS: AST(SGOT) 14 U/L (15-37); Alanine Aminotransfer ALT/SGPT 24 U/L (16-61); Albumin, Serum 3.8 g/dL (3.2-5.0); Alkaline Phosphatase 56 U/L (45-117); Anion Gap 5 (5-15); BUN 13 mg/dL (7-18); BUN/Creat Ratio 12.4 RATIO (10-20); CRP 5.74 mg/L (0.0-3.0); Calcium,Total 9.3 mg/dL (8.5-10.1); Chloride 107 mmol/L (98-107); Creatinine, Serum 1.05 mg/dL (0.70-1.30); EST Glomerular Filtration Rate 78 mL/min (>60); Est Glom Filt Rate - Afr Amer 95 mL/min (>60); Glucose 111 mg/dL (74-106); Potassium 4.1 mmol/L (3.5-5.1); Protein, Total 7.8 g/dL (6.4-8.2); Sodium Level 141 mmol/L (136-145)
[2021-05-24 10:37] LABS: Pathologist Review Reviewed
== END ==
PROVIDERS: PCP Family Medicine; Referring Provider Podiatrist; Visit Provider Podiatrist
DX: L03.90 Cellulitis, unspecified (principal); L98.499 Non-pressure chronic ulcer of skin of other sites with unspecified severity
CPT/HCPCS: 36415; 73630; 80053; 85025; 85652; 86140; 87070; 87075; 87077; 87186; 87205; 87640

== ENCOUNTER → 2021-05-20 15:49 | Outpatient (CLI) | payer BC, SELFPAY ==
[2021-05-20 19:47] LABS: M R Staph aureus DNA By PCR Negative (Negative); Probe Check PASS; Specimen Processing Control PASS; Staph aureus DNA By PCR NEGATIVE (Negative)
== END ==
PROVIDERS: PCP Family Medicine; Visit Provider Podiatrist
DX: L98.499 Non-pressure chronic ulcer of skin of other sites with unspecified severity (principal)
CPT/HCPCS: 87070; 87075; 87077; 87186; 87205; 87640

== ENCOUNTER 2021-07-08 08:52 | Outpatient (RCR) | payer BC, SELFPAY ==
--- NOTE | 2021-07-08 09:51 | PCM.WC.HP ---
History of Present Illness Date of Service: 07/08/21 Chief Complaint: Right lateral fifth digit wound History of Wound: This 53-year-old diabetic male returns to the wound healing center today after being referred from his family physician office. He states he wears his diabetic shoes with soft upper mesh top and diabetic inserts. He states he has been applying a soft towel to help stretch the inside of the shoe to better accommodate his fifth toe. He believes the wound is healed today. He denies any signs or symptoms of local or systemic infection. [facility], [facility] Medical History Arthritis Callus of foot Chronic foot ulcer Diabetes Diabetes type 2, uncontrolled Diabetic foot ulcer Edema, lower extremity Essential hypertension Gout Hyperlipidemia Junctional tachycardia (12/21/20) Morbid obesity Obstructive sleep apnea Perineal abscess Scrotum, abscess Type 2 diabetes mellitus with diabetic polyneuropathy Home Medications metformin 1,000 mg PO BIDCM 04/26/13 [History Last Taken 01/15/15] Cinnamon 2,000 mg PO DAILY 11/09/14 [History Last Taken 01/15/15] insulin detemir U-100 47 units SUBCUT QHS 11/02/17 [History Last Taken Unknown] amlodipine 10 mg tablet 10 mg PO DAILY 30 Days #30 tab 11/09/18 [History Last Taken Unknown] ascorbate calcium (vitamin C) 500 mg tablet 500 mg PO DAILY 12/21/20 [History Last Taken Unknown] empagliflozin 25 mg tablet 25 mg PO DAILY 12/21/20 [History Last Taken Unknown] icosapent ethyl 1 gram capsule 2 g PO BID #360 cap 02/08/21 [Rx Last Taken Unknown] apixaban 5 mg tablet 5 mg PO BID #60 tab 04/13/21 [Rx Last Taken Unknown] carvedilol 25 mg tablet 25 mg PO BID #180 tab 07/05/21 [Rx Last Taken Unknown] Allergy/AdvReac Type Severity Reaction Status Date / Time No Known Allergies Allergy Verified 06/03/21 10:06 Family History Other Diabetes Social History Smoking Status: Never smoker alcohol intake: never ROS Constitutional Constitutional: Denies chills, fatigue, fever(s) or malaise Eyes Eyes: Denies blurry vision or double vision ENT HEENT: Denies nasal congestion, nasal discharge or sore throat Cardiovascular Cardiovascular: Denies chest pain or edema Respiratory/Chest Respiratory/Chest: Denies cough, shortness of breath at rest or wheezing Gastrointestinal Gastrointestinal: Denies abdominal pain, diarrhea, nausea or vomiting Genitourinary Genitourinary: Denies dysuria, hematuria or urinary frequency Musculoskeletal Musculoskeletal: Denies joint pain, joint stiffness or muscle weakness Integumentary Integumentary: Denies jaundice, lesions or rash Neurologic Neurologic: Reports burning sensations, numbness, paresthesias and tingling Psychiatric Psychiatric: Denies anxiety or depression Endocrine Endocrinology: Denies cold intolerance, heat intolerance or polydipsia Hematologic/Lymphatic Hematologic/Lymphatic: Denies easy bleeding or easy bruising Physical Exam Const alert, oriented x3 and no apparent distress General Appearance: cooperative and comfortable HEENT normocephalic Eyes PERRL General Eye: normal appearance of both eyes Neck full ROM General: normal visual inspection Lymph Lymphatic: no lymphadenopathy noted and no lymphedema noted Chest inspection of chest normal Resp normal respiratory effort Cardio regular rate and regular rhythm Extremity Peripheral Pulses: Yes posterior tibial pulses present and dorsalis pedis pulses present Skin no rashes or lesions noted Wound Narrative: Lateral fifth digit right foot demonstrates peeling skin with small amount of hyperkeratotic callus tissue overlying the proximal interphalangeal joint. No erythema, red streaking, purulent drainage, or malodor. Surrounding skin intact and atrophic. Neuro Motor Exam: strength 5/5 throughout and clonus absent Debridement Note Debridement Note Wound debrided: Lateral fifth digit right foot Laterality: Right Wound Grade/Stage: Estevez grade 1 Type of Debridement: Selective debridement Percentage of wound debrided: 100 Instrument Used: #15 blade Tissue Removed: Hyperkeratotic tissue Amount of bleeding with debridement: None Debridement Free Text: Wound healed today. Assessment/Plan Assessment/Plan (1) Morbid obesity: CODE(S): E66.01 - Morbid (severe) obesity due to excess calories (2) Diabetes mellitus with diabetic polyneuropathy: CODE(S): E11.42 - Type 2 diabetes mellitus with diabetic polyneuropathy (3) Charcot foot due to diabetes mellitus: CODE(S): E11.610 - Type 2 diabetes mellitus with diabetic neuropathic arthropathy (4) Ulcer of toe of right foot: CODE(S): L97.519 - Non-pressure chronic ulcer of other part of right foot with unspecified severity (5) Hyperlipidemia: CODE(S): E78.5 - Hyperlipidemia, unspecified (6) Essential hypertension: CODE(S): I10 - Essential (primary) hypertension PLAN: This 55-year-old diabetic male with peripheral polyneuropathy, hyperlipidemia, essential hypertension, morbid obesity, and history of Charcot foot deformity, and foot drop bilateral presents for follow-up of his right lateral fifth digit wound. Patient believes his wound is healed today and has been offloading with his diabetic shoes and a dressing placed around the fifth toe to protect it from rubbing against the shoe. Lateral right fifth digit was examined and noted to have overlying hyperkeratotic/callus tissue secondary to rubbing against the shoe. There is no localized signs of infection. A selective debridement was performed today utilizing a #15 blade removing all surrounding hyperkeratotic tissue. At this time his wound is healed. Patient may resume normal work activities Monday and continue wearing his diabetic offloading shoes. I encouraged the patient to follow-up with his primary care physician and continue proper diabetic diet with glycemic control and weight loss. Patient will also continue to wear his braces bilateral for his Charcot foot deformity. He is encouraged to check his feet daily for any wounds. Patient instructed to follow-up with podiatry for regular diabetic examinations and routine foot check. He is to call our office at [phone] sooner if he has any foot or ankle problems. The problems addressed require a low medical decision making level which includes two or more minor problems, a stable chronic illness, or an acute uncomplicated illness or injury. The medical decision making level is low. There is noted low risk of morbidity after considering this treatment plan and diagnostic data.
[2021-07-08 09:55] VITALS: BP 136/75; PULSE 75; RESP 18; TEMP 36.8
== END 2021-07-08 13:12 | disposition home or self-care (01) ==
LOC: WC 08:52
PROVIDERS: PCP Family Medicine; Visit Provider Student in an Organized Health Care Education/Training Program
DX: E11.621 Type 2 diabetes mellitus with foot ulcer (principal); L97.519 Non-pressure chronic ulcer of other part of right foot with unspecified severity; E11.42 Type 2 diabetes mellitus with diabetic polyneuropathy; E11.610 Type 2 diabetes mellitus with diabetic neuropathic arthropathy; E66.01 Morbid (severe) obesity due to excess calories; I10 Essential (primary) hypertension; E78.5 Hyperlipidemia, unspecified; Z79.84 Long term (current) use of oral hypoglycemic drugs; G47.33 Obstructive sleep apnea (adult) (pediatric)
CPT/HCPCS: 97597; 99213; G0463

== ENCOUNTER → 2021-10-08 | Outpatient (CLI) | payer BC, SELFPAY ==
[2021-10-08 17:39] LABS: Absolute Lymphocyte Count 2.71 X10^3/uL (0.83-4.51); Absolute Neutrophil Count 3.9 X10^3/uL (2.0-7.7); Basophil# 0.05 X10^3/uL; Basophil% 0.6 % (0-1); Eosinophil# 0.19 X10^3/uL; Eosinophils% 2.4 % (0-5); Hematocrit 51.7 % (40-54); Hemoglobin 17.4 g/dL (13.0-16.5); Lymphocyte # 2.71 X10^3/ul (0.83-4.51); Lymphocyte % 34.6 % (19-41); Mean Corp Hgb Conc 33.7 g/dL (32-36); Mean Corpuscular Hgb 28.7 pg (27.0-32.0); Mean Corpuscular Volume 85.2 fL (80-94); Mean Platelet Vol. 9.3 fl (6.2-12.0); Monocyte# 0.91 X10^3/uL; Monocyte% 11.6 % (0-10); NRBC Flagged by Analyzer 0 % (0-5); Neutrophil # 3.91 X10^3/uL (2.7-7.7); Platelet Count 250 K/mm3 (150-450); RBC Distribution Width SD 42.6 fl (35.1-43.9); Red Blood Count 6.07 M/mm3 (4.6-6.2); White Blood Count 7.8 K/mm3 (4.4-11.0)
[2021-10-08 17:47] LABS: AST(SGOT) 16 U/L (15-37); Alanine Aminotransfer ALT/SGPT 24 U/L (16-61); Albumin, Serum 3.9 g/dL (3.2-5.0); Alkaline Phosphatase 51 U/L (45-117); Anion Gap 6 (5-15); BUN 16 mg/dL (7-18); BUN/Creat Ratio 12.9 RATIO (10-20); Calcium,Total 9.1 mg/dL (8.5-10.1); Chloride 106 mmol/L (98-107); Cholesterol 213 mg/dL (200); Creatinine, Serum 1.24 mg/dL (0.70-1.30); EST Glomerular Filtration Rate 65 mL/min (>60); Est Glom Filt Rate - Afr Amer 78 mL/min (>60); Ferritin 212 ng/mL (26-388); Globulin 3.8 g/dL (2.2-4.2); Glucose 117 mg/dL (74-106); High Density Lipoprotein 38 mg/dL; Iron 58 ug/dL (65-175); Iron Binding Capacity,Total 394 ug/dL (250-450); Potassium 4.1 mmol/L (3.5-5.1); Protein, Total 7.7 g/dL (6.4-8.2); Sodium Level 135 mmol/L (136-145); Triglycerides 324 mg/dL; Uric Acid 8.4 mg/dL (3.5-7.2); Very Low Density Lipoprotein 65 mg/dL (5-40)
[2021-10-10 15:40] LABS: Transferrin 275 mg/dL (177-329)
== END | disposition home or self-care (01) ==
LOC: MFPLAB 16:12
PROVIDERS: PCP Family Medicine; Referring Provider Family Medicine; Visit Provider Family Medicine
DX: E11.69 Type 2 diabetes mellitus with other specified complication (principal); D58.2 Other hemoglobinopathies; M10.9 Gout, unspecified
CPT/HCPCS: 36415; 80053; 80061; 82728; 83036; 83540; 83550; 84466; 84550; 85025

== ENCOUNTER → 2022-02-15 | Outpatient (CLI) | payer BC, SELFPAY ==
[2022-02-15 18:11] LABS: Absolute Lymphocyte Count 2.79 X10^3/uL (0.83-4.51); Basophil# 0.07 X10^3/uL; Basophil% 0.8 % (0-1); Eosinophil# 0.32 X10^3/uL; Eosinophils% 3.5 % (0-5); Hematocrit 50.3 % (40-54); Hemoglobin 17.3 g/dL (13.0-16.5); Lymphocyte # 2.79 X10^3/ul (0.83-4.51); Lymphocyte % 30.6 % (19-41); Mean Corp Hgb Conc 34.4 g/dL (32-36); Mean Corpuscular Hgb 29.7 pg (27.0-32.0); Mean Corpuscular Volume 86.3 fL (80-94); Mean Platelet Vol. 9.8 fl (6.2-12.0); Monocyte# 0.89 X10^3/uL; Monocyte% 9.7 % (0-10); NRBC Flagged by Analyzer 0 % (0-5); Neutrophil # 4.95 X10^3/uL (2.7-7.7); Neutrophil % 54.2 % (47-70); Platelet Count 232 K/mm3 (150-450); RBC Distribution Width CV 13.7 % (11.6-14.6); RBC Distribution Width SD 42.2 fl (35.1-43.9); Red Blood Count 5.83 M/mm3 (4.6-6.2); White Blood Count 9.1 K/mm3 (4.4-11.0)
[2022-02-15 18:23] LABS: ALB/GLOB Ratio 0.8 RATIO (0.9-2.4); AST(SGOT) 14 U/L (15-37); Alanine Aminotransfer ALT/SGPT 25 U/L (16-61); Albumin, Serum 3.5 g/dL (3.2-5.0); Alkaline Phosphatase 49 U/L (45-117); Anion Gap 12 (5-15); BUN 22 mg/dL (7-18); BUN/Creat Ratio 20.6 RATIO (10-20); Calcium,Total 8.8 mg/dL (8.5-10.1); Chloride 102 mmol/L (98-107); Cholesterol 147 mg/dL (200); Creatinine, Serum 1.07 mg/dL (0.70-1.30); EST Glomerular Filtration Rate 77 mL/min (>60); Est Glom Filt Rate - Afr Amer 93 mL/min (>60); Globulin 4.2 g/dL (2.2-4.2); Glucose 124 mg/dL (74-106); High Density Lipoprotein 41 mg/dL; Potassium 3.8 mmol/L (3.5-5.1); Protein, Total 7.7 g/dL (6.4-8.2); Sodium Level 135 mmol/L (136-145); Triglycerides 279 mg/dL; Uric Acid 6.6 mg/dL (3.5-7.2); Very Low Density Lipoprotein 56 mg/dL (5-40)
[2022-02-15 18:36] LABS: Microalbumin:Creatinine Ratio 347.7 mg/g CRE (<30 mg/g CRE)
[2022-02-15 18:43] LABS: Hemoglobin A1c 7.9 % (3.8-5.6)
[2022-02-16 12:03] LABS: Ferritin 196 ng/mL (26-388); Iron 78 ug/dL (65-175); Iron Binding Capacity,Total 333 ug/dL (250-450); PERCENT IRON SATURATION 23.4 % (15.0-55.0)
== END | disposition home or self-care (01) ==
LOC: MFPLAB 15:23
PROVIDERS: PCP Family Medicine; Referring Provider Family Medicine; Visit Provider Family Medicine
DX: E11.9 Type 2 diabetes mellitus without complications (principal); M10.9 Gout, unspecified; D75.1 Secondary polycythemia
CPT/HCPCS: 36415; 80053; 80061; 82043; 82570; 82728; 83036; 83540; 83550; 84466; 84550; 85025

== ENCOUNTER → 2022-02-17 | Outpatient (CLI) | payer BC, SELFPAY ==
[2022-02-19 16:22] LABS: Transferrin 277 mg/dL (177-329)
== END | disposition home or self-care (01) ==
LOC: MFPLAB 15:17
PROVIDERS: PCP Family Medicine; Referring Provider Family Medicine; Visit Provider Family Medicine
DX: D75.1 Secondary polycythemia (principal)
CPT/HCPCS: 36415; 84466

== ENCOUNTER 2022-03-11 10:32 | Day surgery (SDC) | payer BC, SELFPAY ==
[2022-03-10 07:48] VITALS: BMI 52.2
[2022-03-11 12:20] VITALS: RESP 10; RESP 19; O2SAT 100
[2022-03-11 12:45] LABS: Bedside Glucose 116 mg/dL (74-106)
[2022-03-11 12:48] VITALS: RESP 18; O2SAT 100
--- NOTE | 2022-03-11 12:57 | PCM.OP.BLANK ---
Problems Associated Problem List Diagnoses (1) Atrial flutter with rapid ventricular response: Operative Report Date of Procedure: 03/11/22 Direct-current diversion. 56-year-old man with a history of symptomatic atrial flutter. The patient had been anticoagulated for at least 4 weeks and was brought in for treatment of the above. The patient was seen by Dr. Fischer of the critical care division. Informed consent was obtained. The patient was placed on a BiPAP mask. The patient then had anterior posterior pad placement of biphasic defibrillation pads. 125 mg of intravenous propofol was administered then 300 J of synchronized biphasic DC cardioversion energy was delivered with reversal to sinus rhythm. Patient tolerated the procedure well. Postoperative vital signs were noted to be stable. Conclusion: Successful DC cardioversion from atrial flutter to sinus rhythm. Follow-up per office protocol and anticoagulation
--- NOTE | 2022-03-11 12:59 | PN.CC_ITS ---
Assessment & Plan Assessment/Plan (1) Atrial tachycardia: PLAN: Plan Afib/flutter for elective cardioversion, anticoagulated for ~3+ weeks Severe TONYA/OHS in NIV qHS ASA 3 acceptable for procedure with BiPAP ventilation and propofol MAC MAC review: Patient required 125 mg propofol in divided doses BiPAP ventilation throughout procedure, with baseline Ve 21L and minimum procedure Ve 12LPM. ETCo2 monitoring remained 21-24 throughout, minimum SpO2 95% on 25% FiO2. Tolerated well, normal recovery from Propofol without hypotension. See nursing documentation. See cardiology note for cardioversion results Awake, alert after procedure Monitored post procedure BiPAP discontinued with SpO2 in 90s after patient awake. Critical care left unit at 1:20 PM Direct patient care time at bedside: 65 minutes. Subjective Subjective 56 yo m in NAD, usual state of health here for elective cardioversion. Last meal last evening, took meds with a sip of water this AM. No acute illesss. Objective Data Objective Data Labs and PMH reviewed. Uses BiPAP 23/19 spont rate, FFM, without O2 qHS for severe TONYA/OHS. Last weight 435 lbs, which is decreasing per . Dentition with partial plate, removed for procedure, one sore but not loose tooth upper right. No trouble during recent colonoscopy at [facility], records not available today. Plan is for MAC with propofol, BiPAP 23/19, Fio2 titrated, rate 8. EtCO2 monitoring. Patient told of risk of hypoventilation during procedure. Intubation set up and ambu with PEEP valve at 20 on standby in room. Propofol to be administered by [facility] Vital Signs: Vital Signs Resp Pulse Ox O2 Del Method FiO2 18 100 Bi-pap 03/11/22 12:48 03/11/22 12:48 03/11/22 12:48 03/11/22 12:48 Oxygen Delivery Method Bi-pap Weight: 200.034 kg Body Mass Index (BMI) 52.2 Lab / Micro Data Attestation: I reviewed the patient's lab results. Labs: Laboratory Results - last 24 hr 03/11/22 12:26: POC Glucose 116 H Rhythm Strip Rhythm Strip: A-fib Physical Exam Narrative Pleasant, articulate WM in NAD. HEENT Mallampati 4 airway, fair dentition Chest clear Cor normal irreg s1s2 abd obese, NT ext no CCE, bilateral leg braces in place. neuro intact, A&O x 3. skin warm & dry
== END 2022-03-11 13:55 | disposition home or self-care (01) ==
PROVIDERS: PCP Family Medicine; Referring Provider Internal Medicine Cardiovascular Disease; Visit Provider Internal Medicine Cardiovascular Disease
DX: I48.92 Unspecified atrial flutter (principal); E11.42 Type 2 diabetes mellitus with diabetic polyneuropathy; I47.1 Supraventricular tachycardia; E66.01 Morbid (severe) obesity due to excess calories; D45 Polycythemia vera; Z79.4 Long term (current) use of insulin; I10 Essential (primary) hypertension; E78.5 Hyperlipidemia, unspecified; M10.9 Gout, unspecified; G47.33 Obstructive sleep apnea (adult) (pediatric); Z79.899 Other long term (current) drug therapy; Z79.84 Long term (current) use of oral hypoglycemic drugs
CPT/HCPCS: 82962; 92960; 93005; 94002; 99251; J7040; A4216; G0463

== ENCOUNTER → 2022-06-03 | Outpatient (CLI) | payer OTHER, SELFPAY ==
[2022-06-03 10:28] LABS: Absolute Lymphocyte Count 1.82 X10^3/uL (0.83-4.51); Basophil# 0.04 X10^3/uL; Basophil% 0.6 % (0-1); Eosinophil# 0.24 X10^3/uL; Eosinophils% 3.4 % (0-5); Hematocrit 51.5 % (40-54); Hemoglobin 17.9 g/dL (13.0-16.5); Lymphocyte # 1.82 X10^3/ul (0.83-4.51); Lymphocyte % 25.9 % (19-41); Mean Corp Hgb Conc 34.8 g/dL (32-36); Mean Corpuscular Volume 86.3 fL (80-94); Mean Platelet Vol. 9.7 fl (6.2-12.0); Monocyte# 0.83 X10^3/uL; Monocyte% 11.8 % (0-10); NRBC Flagged by Analyzer 0 % (0-5); Neutrophil # 4.01 X10^3/uL (2.7-7.7); Neutrophil % 57.2 % (47-70); Platelet Count 207 K/mm3 (150-450); RBC Distribution Width CV 13.7 % (11.6-14.6); RBC Distribution Width SD 42.7 fl (35.1-43.9); Red Blood Count 5.97 M/mm3 (4.6-6.2)
[2022-06-03 10:52] LABS: ALB/GLOB Ratio 1.1 RATIO (0.9-2.4); AST(SGOT) 14 U/L (15-37); Alanine Aminotransfer ALT/SGPT 28 U/L (16-61); Albumin, Serum 3.8 g/dL (3.2-5.0); Alkaline Phosphatase 56 U/L (45-117); Anion Gap 8 (5-15); BUN 24 mg/dL (7-18); BUN/Creat Ratio 25.3 RATIO (10-20); Calcium,Total 9.1 mg/dL (8.5-10.1); Chloride 107 mmol/L (98-107); Cholesterol 130 mg/dL (200); Creatinine, Serum 0.95 mg/dL (0.70-1.30); EST Glomerular Filtration Rate 88 mL/min (>60); Est Glom Filt Rate - Afr Amer 106 mL/min (>60); Globulin 3.4 g/dL (2.2-4.2); Glucose 168 mg/dL (74-106); High Density Lipoprotein 36 mg/dL; Potassium 4.3 mmol/L (3.5-5.1); Protein, Total 7.2 g/dL (6.4-8.2); Sodium Level 140 mmol/L (136-145); Thyroid Stim Hormone (TSH) 1.03 uIU/mL (0.358-3.74); Triglycerides 364 mg/dL; Uric Acid 6.1 mg/dL (3.5-7.2); Very Low Density Lipoprotein 73 mg/dL (5-40)
== END | disposition home or self-care (01) ==
LOC: MFPLAB 08:15
PROVIDERS: PCP Family Medicine; Referring Provider Family Medicine; Visit Provider Family Medicine
DX: E11.9 Type 2 diabetes mellitus without complications (principal); M10.9 Gout, unspecified
CPT/HCPCS: 36415; 80053; 80061; 84443; 84550; 85025

== ENCOUNTER → 2022-09-14 | Outpatient (CLI) | payer OTHER, SELFPAY ==
[2022-09-14 12:22] LABS: Absolute Lymphocyte Count 1.47 X10^3/uL (0.83-4.51); Absolute Neutrophil Count 4.9 X10^3/uL (2.0-7.7); Basophil# 0.07 X10^3/uL; Basophil% 0.9 % (0-1); Eosinophil# 0.24 X10^3/uL; Hematocrit 52.3 % (40-54); Hemoglobin 17.4 g/dL (13.0-16.5); Lymphocyte # 1.47 X10^3/ul (0.83-4.51); Lymphocyte % 18.6 % (19-41); Mean Corp Hgb Conc 33.3 g/dL (32-36); Mean Corpuscular Hgb 29.4 pg (27.0-32.0); Mean Corpuscular Volume 88.5 fL (80-94); Mean Platelet Vol. 9.9 fl (6.2-12.0); Monocyte# 1.11 X10^3/uL; Monocyte% 14.1 % (0-10); NRBC Flagged by Analyzer 0 % (0-5); Neutrophil # 4.87 X10^3/uL (2.7-7.7); Neutrophil % 61.6 % (47-70); Platelet Count 236 K/mm3 (150-450); RBC Distribution Width CV 13.9 % (11.6-14.6); RBC Distribution Width SD 44.2 fl (35.1-43.9); Red Blood Count 5.91 M/mm3 (4.6-6.2); White Blood Count 7.9 K/mm3 (4.4-11.0)
[2022-09-14 12:42] LABS: AST(SGOT) 19 U/L (15-37); Alanine Aminotransfer ALT/SGPT 29 U/L (16-61); Albumin, Serum 3.6 g/dL (3.2-5.0); Alkaline Phosphatase 53 U/L (45-117); Anion Gap 9 (5-15); BUN 16 mg/dL (7-18); BUN/Creat Ratio 13.4 RATIO (10-20); Calcium,Total 9.4 mg/dL (8.5-10.1); Chloride 103 mmol/L (98-107); Cholesterol 96 mg/dL (200); Creatinine, Serum 1.19 mg/dL (0.70-1.30); EST Glomerular Filtration Rate 68 mL/min (>60); Est Glom Filt Rate - Afr Amer 82 mL/min (>60); Globulin 3.7 g/dL (2.2-4.2); Glucose 226 mg/dL (74-106); High Density Lipoprotein 34 mg/dL; Magnesium 1.8 mg/dL (1.6-2.6); Protein, Total 7.3 g/dL (6.4-8.2); Sodium Level 135 mmol/L (136-145); Triglycerides 182 mg/dL; Very Low Density Lipoprotein 36 mg/dL (5-40)
[2022-09-14 13:40] LABS: Hemoglobin A1c 7.7 % (3.8-5.6)
== END | disposition home or self-care (01) ==
LOC: MFPLAB 09:35
PROVIDERS: PCP Family Medicine; Referring Provider Family Medicine; Visit Provider Family Medicine
DX: E11.59 Type 2 diabetes mellitus with other circulatory complications (principal); E11.69 Type 2 diabetes mellitus with other specified complication; I48.92 Unspecified atrial flutter
CPT/HCPCS: 36415; 80053; 80061; 83036; 83735; 85025

== ENCOUNTER → 2022-09-23 | Outpatient (CLI) | payer OTHER, SELFPAY ==
--- NOTE | 2022-09-23 09:20 | US_ITS ---
EXAM: Scrotal ultrasound HISTORY: SWOLLEN SCROTUM COMPARISON: None Technique: Sonographic evaluation of the scrotum and contents including evaluation of the testicles with color Doppler flow analysis. FINDINGS: Right: Measures 4.8 x 3.3 x 3.3 cm. Echotexture is heterogeneous but there is no discrete lesion. Normal vascularity noted. Right epididymis measures 0.9 x 1 x 1.1 cm. There is normal blood flow without hyperemia. There is a 0.4 cm epididymal cyst Left:. Left testicle measures 4.8 x 4.4 x 2.9 cm. The echotexture is also heterogeneous without discrete lesion. Normal blood flow noted. Left epididymis measures 0.8 x 0.6 x 1.4 cm. No hyperemia is identified. There is a small hydrocele containing some echogenic debris. Incidental note is made of nonspecific bilateral scrotal wall thickening US/Testicular with Arterial Flow IMPRESSION: No sonographic evidence of intratesticular mass or torsion. Testicles are nonspecifically heterogeneous. Small left hydrocele with echogenic debris No sonographic evidence to suspect acute inflammatory process Small right epididymal cyst Electronically Signed: Vish Praedes MD at 10:23 EDT ,
== END | disposition home or self-care (01) ==
LOC: US 09:19
PROVIDERS: PCP Family Medicine; Visit Provider Family Medicine
DX: N50.89 Other specified disorders of the male genital organs (principal)
CPT/HCPCS: 76870; 93976

== ENCOUNTER → 2022-12-12 | Outpatient (CLI) | payer OTHER, SELFPAY ==
[2022-12-12 12:28] LABS: Absolute Lymphocyte Count 1.79 X10^3/uL (0.83-4.51); Basophil# 0.05 X10^3/uL; Basophil% 0.7 % (0-1); Eosinophil# 0.24 X10^3/uL; Eosinophils% 3.5 % (0-5); Hematocrit 53.3 % (40-54); Hemoglobin 18.2 g/dL (13.0-16.5); Lymphocyte # 1.79 X10^3/ul (0.83-4.51); Lymphocyte % 26.1 % (19-41); Mean Corp Hgb Conc 34.1 g/dL (32-36); Mean Corpuscular Hgb 29.4 pg (27.0-32.0); Mean Corpuscular Volume 86.2 fL (80-94); Mean Platelet Vol. 9.9 fl (6.2-12.0); Microalbumin,Random Urine 57.6 mg/L (NO RANGE EST.); Microalbumin:Creatinine Ratio 247.2 mg/g CRE (<30 mg/g CRE); Monocyte# 0.75 X10^3/uL; Monocyte% 10.9 % (0-10); NRBC Flagged by Analyzer 0 % (0-5); Neutrophil % 58.4 % (47-70); Platelet Count 229 K/mm3 (150-450); RBC Distribution Width CV 13.2 % (11.6-14.6); RBC Distribution Width SD 40.9 fl (35.1-43.9); Red Blood Count 6.18 M/mm3 (4.6-6.2); White Blood Count 6.9 K/mm3 (4.4-11.0)
[2022-12-12 13:05] LABS: ALB/GLOB Ratio 0.9 RATIO (0.9-2.4); AST(SGOT) 11 U/L (15-37); Alanine Aminotransfer ALT/SGPT 18 U/L (16-61); Albumin, Serum 3.7 g/dL (3.2-5.0); Alkaline Phosphatase 68 U/L (45-117); Anion Gap 7 (5-15); BUN 14 mg/dL (7-18); BUN/Creat Ratio 14.3 RATIO (10-20); Calcium,Total 9.2 mg/dL (8.5-10.1); Chloride 109 mmol/L (98-107); Cholesterol 111 mg/dL (200); Creatinine, Serum 0.98 mg/dL (0.70-1.30); EST Glomerular Filtration Rate 84 mL/min (>60); Est Glom Filt Rate - Afr Amer 102 mL/min (>60); Ferritin 214 ng/mL (26-388); Globulin 4.2 g/dL (2.2-4.2); Glucose 104 mg/dL (74-106); High Density Lipoprotein 39 mg/dL; Iron 67 ug/dL (65-175); Iron Binding Capacity,Total 443 ug/dL (250-450); Magnesium 2.3 mg/dL (1.6-2.6); Potassium 4.1 mmol/L (3.5-5.1); Protein, Total 7.9 g/dL (6.4-8.2); Sodium Level 138 mmol/L (136-145); Triglycerides 106 mg/dL; Uric Acid 5.7 mg/dL (3.5-7.2); Very Low Density Lipoprotein 21 mg/dL (5-40)
[2022-12-12 13:15] LABS: Hemoglobin A1c 5.5 % (3.8-5.6)
[2022-12-13 05:07] LABS: Transferrin 253 mg/dL (177-329)
[2022-12-14 10:15] LABS: Pathologist Review Reviewed
== END | disposition home or self-care (01) ==
LOC: MFPLAB 09:21
PROVIDERS: PCP Family Medicine; Visit Provider Family Medicine
DX: D75.1 Secondary polycythemia (principal); I48.92 Unspecified atrial flutter; E11.9 Type 2 diabetes mellitus without complications; M10.9 Gout, unspecified
CPT/HCPCS: 36415; 80053; 80061; 82043; 82570; 82728; 83036; 83540; 83550; 83735; 84466; 84550; 85025

== ENCOUNTER → 2022-12-29 | Outpatient (CLI) | payer OTHER, SELFPAY ==
[2022-12-29 18:23] LABS: Anion Gap 6 (5-15); BUN 13 mg/dL (7-18); Calcium,Total 9.3 mg/dL (8.5-10.1); Chloride 105 mmol/L (98-107); Creatinine, Serum 1.08 mg/dL (0.70-1.30); EST Glomerular Filtration Rate 75 mL/min (>60); Est Glom Filt Rate - Afr Amer 91 mL/min (>60); Glucose 88 mg/dL (74-106); Potassium 4.2 mmol/L (3.5-5.1); Sodium Level 136 mmol/L (136-145)
== END | disposition home or self-care (01) ==
LOC: MFPLAB 15:08
PROVIDERS: PCP Family Medicine; Visit Provider Family Medicine
DX: E11.8 Type 2 diabetes mellitus with unspecified complications (principal)
CPT/HCPCS: 36415; 80048

== ENCOUNTER 2023-01-18 09:09 | Emergency (ER) | payer OTHER, SELFPAY ==
[2023-01-18 09:10] VITALS: BP 146/82; PULSE 72; RESP 15; TEMP 36.2; O2SAT 99; BMI 46.1
--- NOTE | 2023-01-18 09:25 | CT_ITS ---
STUDY: CTA HEAD AND NECK WITH CONTRAST REASON FOR EXAM: Male, 57 years old. Vertigo RADIATION DOSAGE (If Supplied By Facility): CTDIvol = ( 33.24 ) mGy, DLP = ( 1787.93 ) mGycm TECHNIQUE: CT angiography was performed with a multi-detector CT scanner. Data acquisition was obtained from the skull base through the vertex following intravenous administration of IV-100 ML ISOVUE 370. MIP images were reconstructed from the axial data set. Post-processing of the angiographic images was performed, with multiplanar reformation and 3D reconstruction. Individualized dose optimization techniques were used for this CT. COMPARISON: No relevant priors. FINDINGS: Normal bilateral petrous carotid arteries. There is calcified plaque formation of the right cavernous carotid artery, without a cross-sectional luminal stenosis. Normal left cavernous carotid artery with a normal supraclinoid bifurcation. Normal right A1 segments of the anterior cerebral artery. Normal left A1 segments of the anterior cerebral artery. Normal intact anterior communicating artery (ACOM). Normal bilateral A2 segments of the anterior cerebral arteries. Normal right M1 and M2 segments of the middle cerebral arteries, with a normal M1 bifurcation. Normal left M1 and M2 segments of the middle cerebral arteries, with a normal M1 bifurcation. Normal right posterior communicating artery (PCOM). Normal left posterior communicating artery (PCOM). Normal bilateral vertebral arteries. Normal basilar artery with a normal basilar bifurcation. The visualized bilateral superior cerebellar (SCA) arteries are normal. Normal bilateral P1, P2 and visualized P3 segments of the posterior cerebral arteries. There is no demonstrated aneurysm of the craig of Iq[place]. There is no demonstrated abnormality of the visualized brain. There is evidence of a cavum septum pellucidum. This is a normal variant. Punctate calcifications in the basal ganglia. This is a normal finding for the patient''s age. Mucosal thickening of the ethmoid sinuses. Heterogeneous enlargement of the left lobe of the thyroid with the low-density nodule as well as focal calcification. AORTIC ARCH: There is mild atherosclerotic calcific plaque formation of the aortic arch and great vessels arising from the aortic arch, without a hemodynamically significant stenosis. There is a normal origin of the brachiocephalic, left common carotid, and left subclavian arteries. RIGHT CAROTID ARTERIES: Normal right common carotid artery (CCA). Normal right common carotid bulb. Normal origin of the right internal carotid (ICA) artery without a hemodynamically significant stenosis. Normal visualized cervical portion of the right internal carotid artery. Normal origin of the right external carotid artery (ECA). LEFT CAROTID ARTERIES: Normal left common carotid artery (CCA). Normal left common carotid bulb. There is extensive atherosclerotic plaque formation of the origin of the left internal carotid artery with an estimated stenosis of greater than 70%. Normal visualized cervical portion of the left internal carotid artery. Normal origin of the left external carotid artery (ECA). VERTEBRAL ARTERIES: Normal bilateral vertebral arteries. CT/CTA Head AND Neck W/ Contrast IMPRESSION: Partially calcified and soft plaque at the origin of the left internal carotid artery causing greater than 70% luminal narrowing. Electronically Signed: Arsen Pena MD at 10:43 EDT ,
--- NOTE | 2023-01-18 09:26 | EKG12_ITS ---
Test Reason : DIZZINESS Blood Pressure : / mmHG Vent. Rate : 070 BPM Atrial Rate : 000 BPM P-R Int : 000 ms QRS Dur : 100 ms QT Int : 398 ms P-R-T Axes : 000 -06 026 degrees QTc Int : 429 ms NORMAL SINUS RHYTHM Abnormal ECG Confirmed by OMAR DANIEL, IGNACIO ([id number]), city editor SERAFIN CARDENAS ([id number]) on 01/23/2023 8:15:26 AM Referred By: KANDI/TL Confirmed By:FERN NELSON MD
--- NOTE | 2023-01-18 09:28 | EX.ED.DYSGE1 ---
HPI History of Present Illness Chief Complaint: Dizziness Narrative Narrative: Patient presents with vertigo. This started yesterday when he was bending down and then sat up quickly. He describes paroxysms to last a few seconds of spinning sensation when he looks a certain way. He has no vision changes. He has no weakness paresthesias confusion or speech difficulties. He has no disequilibrium. He does have some nausea when these hit. [facility] Medical History (Updated 01/18/23 @ 11:[address] Hung Nichole MD) Arthritis Callus of foot Chronic foot ulcer Diabetes Diabetes type 2, uncontrolled Diabetic foot ulcer Edema, lower extremity Essential hypertension Gout Hyperlipidemia Junctional tachycardia (12/21/20) Morbid obesity Obstructive sleep apnea Perineal abscess Polycythemia vera Scrotum, abscess Type 2 diabetes mellitus with diabetic polyneuropathy Ulcer of toe of right foot Home Medications metformin 1,000 mg tablet 1,000 mg PO BIDCM 04/26/13 [History Last Taken 01/15/15] insulin detemir U-100 100 unit/mL (3 mL) subcutaneous pen 47 units subcut QHS 11/02/17 [History Last Taken Unknown] amlodipine 10 mg tablet 10 mg PO DAILY 30 days #30 tabs 11/09/18 [History Last Taken 03/11/22] empagliflozin 25 mg tablet 25 mg PO DAILY 12/21/20 [History Last Taken 03/11/22] rosuvastatin 10 mg tablet 10 mg PO DAILY 03/01/22 [History Last Taken Unknown] apixaban 5 mg tablet (Eliquis) 5 mg PO BID #180 tabs 04/07/22 [Rx Last Taken Unknown] icosapent ethyl 1 gram capsule (Vascepa) 2 g (2 x 1 gram) PO BID #360 caps 04/07/22 [Rx Last Taken Unknown] allopurinol 100 mg tablet 100 mg PO DAILY 09/20/22 [History Last Taken Unknown] aspirin 81 mg chewable tablet 81 mg PO DAILY 09/20/22 [History Last Taken Unknown] cinnamon bark 500 mg capsule (Cinnamon) 1,000 mg PO DAILY 09/20/22 [History Last Taken Unknown] pantoprazole 40 mg tablet,delayed release 40 mg PO DAILY 09/20/22 [History Last Taken Unknown] metoprolol succinate 25 mg tablet,extended release 24 hr 25 mg PO BID this is a dose increase #60 tabs 01/09/23 [Rx Last Taken Unknown] carbamide peroxide 6.5 % ear drops (Debrox) 5 drp RIGHT EAR DAILY 4 days #15 mL 01/18/23 [Rx Last Taken Unknown] meclizine 25 mg tablet 25 mg PO 4X/DAY PRN PRN Dizziness #30 tabs 01/18/23 [Rx Last Taken Unknown] Allergy/AdvReac Type Severity Reaction Status Date / Time No Known Allergies Allergy Verified 03/01/22 12:21 Family History Other Diabetes Surgical History (Updated 10/13/22 @ 16:34 by Felicia Ibrahim) History of cardiac radiofrequency ablation (09/07/22) History of cardioversion (03/11/22) History of radiofrequency ablation procedure for cardiac arrhythmia (~09/07/22) Social History Smoking Status: Never smoker alcohol intake: never ROS ROS ED ROS Narrative Past medical history: Reviewed Medications: Reviewed Social history: Noncontributory Review of systems: All systems negative except as indicated General: No fever Eyes: No visual changes ENT: No upper airway congestion, normal voice. He feels like his right ear is clogged up. Neck: No neck pain Cardiovascular: No chest pain Respiratory: No shortness of breath or cough Gastrointestinal: No abdominal pain, nausea vomiting or diarrhea Genitourinary: No dysuria Musculoskeletal: Denies myalgias no difficulty with ambulation Skin: No rash Neurological: Vertigo. Otherwise no other neurological symptoms. Psych: No recent behavioral changes Hematologic: No easy bleeding or easy bruising EXAM Physical Exam Narrative Exam Narrative: Physical exam General: Patient appears relatively comfortable. Head: Normocephalic, Atraumatic Eyes: Conjunctiva not pale. Pupils are equal and reactive. Patient has rightward saccade. ENT: Moist mucous membranes. Some congestion of the left ear. Right ear has full cerumen impaction and I cannot see the TM. Neck: Supple, Nontender, No lymphadenopathy Cardiovascular: Regular rate, Regular rhythm Respiratory: No distress, CTA bilaterally Abdomen: Soft, Nontender, Nondistended Back: Nontender, Normal Inspection. Negative for: CVA tenderness Extremities: Nontender, No edema Skin: Normal color, No rash Neurological: Alert, Normal Strength, Normal Sensation. Normal cerebellar. Psychological: Normal affect Const Vital Signs: 01/18/23 09:10 01/18/23 09:13 Temperature 97.2 F L Temperature Source Temporal Pulse Rate 72 Respiratory Rate 15 Respiratory Effort Normal Non-Labored Respiratory Pattern Normal Blood Pressure 146/82 H Blood Pressure Mean 103 Pulse Ox 99 Oxygen Delivery Method Room Air MDM MDM MDM Narrative Medical decision making narrative: Patient has paroxysms of vertigo consistent with benign paroxysmal positional vertigo. He has a normal neurological exam and normal CT and CTA other than stenosis of the internal carotid which does not need immediate management, and would not cause any of his symptoms. He will be referred to vascular surgery he was treated with meclizine and had improvement. At this time I do not believe he has a stroke as far as his etiology. I will refer to ENT. He also has cerumen impaction I will treat that. I talked to him and his who agree with the plan. If anything changes he is to return. At this time I do not believe he meets admission criteria I thought about admission but I believe he can get an outpatient workup. Lab Data Labs: Laboratory Results - last 24 hr 01/18/23 09:17 WBC 8.6 RBC 6.21 H Hgb 17.8 H Hct 52.9 MCV 85.2 MCH 28.7 MCHC 33.6 RDW Std Deviation 40.4 RDW Coeff of Steven 13.2 Plt Count 224 MPV 9.1 Immature Gran % (Auto) 1.000 H Neut % (Auto) 67.5 Lymph % (Auto) 18.2 L [place] % (Auto) 11.2 H Eos % (Auto) 1.5 Baso % (Auto) 0.6 Absolute Neuts (auto) 5.8 Absolute Lymphs (auto) 1.57 Nucleated RBC % 0 Sodium 138 Potassium 4.4 Chloride 104 Carbon Dioxide 24.0 Anion Gap 10 BUN 16 Creatinine 1.10 Estim Creat Clear Calc 95.63 Est GFR (MDRD) Af Amer 89 Est GFR (MDRD) Non-Af 74 BUN/Creatinine Ratio 14.5 Glucose 135 H Calcium 9.1 Total Bilirubin 0.60 AST 17 ALT 20 Alkaline Phosphatase 71 Troponin I High Sens 5 Total Protein 7.4 Albumin 3.6 Globulin 3.8 Albumin/Globulin Ratio 0.9 Radiography Diagnostic Testing: Clinical Impression(s) from Imaging Studies Head/Neck CTA 01/18/23 09:25 IMPRESSION: Partially calcified and soft plaque at the origin of the left internal carotid artery causing greater than 70% luminal narrowing. Electronically Signed: Arsen Pena MD at 10:43 EDT , Rhythm Strip Rhythm Strip: Sinus Rhythm Rate: 70 Ectopy: None EKG Initial EKG: Comments: Sinus rhythm with a rate of 70. WA interval is somewhat prolonged with a first-degree AV block. Normal QTc. Normal morphology without any evidence of ischemia. Interpreted by emergency doctor Discharge Plan Triage Chief Complaint: Dizziness ED Provider: Hung Nichole Dx/Rx/DC Orders Clinical Impression: Cerumen impaction, Internal carotid artery stenosis, Vertigo Instructions: Inner Ear Balance, Vertigo Inner Ear Problems Prescriptions: New Debrox 6.5 % drops 5 drp RIGHT EAR DAILY 4 Days Qty: 15 0RF meclizine 25 mg tablet 25 mg PO 4X/DAY PRN PRN (Reason: Dizziness) Qty: 30 0RF No Action amlodipine 10 mg tablet 10 mg PO DAILY 30 Days Qty: 30 rosuvastatin 10 mg tablet 10 mg PO DAILY Patient Comments: Take 1 tablet by mouth daily allopurinol 100 mg tablet 100 mg PO DAILY Patient Comments: Take 1 tablet by mouth daily pantoprazole 40 mg tablet,delayed release (DR/EC) 40 mg PO DAILY aspirin 81 mg tablet,chewable 81 mg PO DAILY cinnamon bark [Cinnamon] 500 mg capsule 1,000 mg PO DAILY metformin 1,000 MG tablet 1,000 mg PO BIDCM Patient Comments: DIABETES insulin detemir U-100 100 UNITS/ML insulin pen 47 units subcut QHS Patient Comments: long acting insulin empagliflozin 25 mg tablet 25 mg PO DAILY Eliquis 5 mg tablet 5 mg PO BID Qty: 180 3RF icosapent ethyl [Vascepa] 1 gram capsule 2 g PO BID Qty: 360 3RF metoprolol succinate 25 mg tablet extended release 24 hr 25 mg PO BID Qty: 60 11RF Primary Care Provider: Nguyễn Felder Referrals: Ludwig Sprague MD [Med Staff - Active Staff] - 3-5 Days Nguyễn Felder MD [Primary Care Provider] - 3-5 Days Roland Mancia MD [Med Staff - Active Staff] - 3-5 Days Disposition Disposition: Home, Self Care
[2023-01-18 09:38] LABS: Absolute Lymphocyte Count 1.57 X10^3/uL (0.83-4.51); Absolute Neutrophil Count 5.8 X10^3/uL (2.0-7.7); Basophil# 0.05 X10^3/uL; Basophil% 0.6 % (0-1); Eosinophil# 0.13 X10^3/uL; Eosinophils% 1.5 % (0-5); Hematocrit 52.9 % (40-54); Hemoglobin 17.8 g/dL (13.0-16.5); Lymphocyte # 1.57 X10^3/ul (0.83-4.51); Lymphocyte % 18.2 % (19-41); Mean Corp Hgb Conc 33.6 g/dL (32-36); Mean Corpuscular Hgb 28.7 pg (27.0-32.0); Mean Corpuscular Volume 85.2 fL (80-94); Mean Platelet Vol. 9.1 fl (6.2-12.0); Monocyte# 0.97 X10^3/uL; Monocyte% 11.2 % (0-10); NRBC Flagged by Analyzer 0 % (0-5); Neutrophil # 5.82 X10^3/uL (2.7-7.7); Neutrophil % 67.5 % (47-70); Platelet Count 224 K/mm3 (150-450); RBC Distribution Width CV 13.2 % (11.6-14.6); RBC Distribution Width SD 40.4 fl (35.1-43.9); Red Blood Count 6.21 M/mm3 (4.6-6.2); White Blood Count 8.6 K/mm3 (4.4-11.0)
[2023-01-18] MEDS: Meclizine HCl 25 MG Tablet PO (09:53)
[2023-01-18 09:59] LABS: ALB/GLOB Ratio 0.9 RATIO (0.9-2.4); AST(SGOT) 17 U/L (15-37); Alanine Aminotransfer ALT/SGPT 20 U/L (16-61); Albumin, Serum 3.6 g/dL (3.2-5.0); Alkaline Phosphatase 71 U/L (45-117); Anion Gap 10 (5-15); BUN 16 mg/dL (7-18); BUN/Creat Ratio 14.5 RATIO (10-20); Calcium,Total 9.1 mg/dL (8.5-10.1); Chloride 104 mmol/L (98-107); EST Glomerular Filtration Rate 74 mL/min (>60); Est Glom Filt Rate - Afr Amer 89 mL/min (>60); Estimated Creatinine Clearance 95.63 ml/min; Globulin 3.8 g/dL (2.2-4.2); Glucose 135 mg/dL (74-106); Potassium 4.4 mmol/L (3.5-5.1); Protein, Total 7.4 g/dL (6.4-8.2); Sodium Level 138 mmol/L (136-145); Troponin-I HS 5 pg/mL (3.0-78.0)
[2023-01-18 11:24] VITALS: BP 154/79; PULSE 84; RESP 16; O2SAT 97
== END 2023-01-18 11:24 | disposition home or self-care (01) ==
PROVIDERS: Emergency Provider Emergency Medicine; PCP Family Medicine; Visit Provider Emergency Medicine
DX: H61.20 Impacted cerumen, unspecified ear (principal); E11.42 Type 2 diabetes mellitus with diabetic polyneuropathy; I65.22 Occlusion and stenosis of left carotid artery; E78.5 Hyperlipidemia, unspecified; R42 Dizziness and giddiness; I10 Essential (primary) hypertension
CPT/HCPCS: 70496; 70498; 80053; 84484; 85025; 93005; 96360; 96361; 99285; J7030; Q9967

== ENCOUNTER 2023-02-17 15:04 | Outpatient (CLI) | payer OTHER, SELFPAY ==
--- NOTE | 2023-02-17 15:06 | CDU_ITS ---
Reason For Study: Carotid artery disease Rt. Velocities/BP Lt. Velocities/BP Prox CCA 126.6/22.5 cm/sec. Prox CCA 102.8/22.5 cm/sec. Mid CCA 106.5/17 cm/sec. Mid CCA 91.9/17 cm/sec. Dist CCA 91.9/17 cm/sec. Dist CCA 75.1/17.9 cm/sec. Prox ICA 93.7/15.2 cm/sec. Prox ICA 85.1/23.7 cm/sec. Mid ICA 77.7/18.8 cm/sec. Mid ICA 85.1/22.5 cm/sec. Dist ICA 65.4/20 cm/sec. Dist ICA 87.6/26.2 cm/sec. Rt. ICA/CCA = 0.88. Lt. ICA/CCA = 0.95. Prox ECA 122.9/15.2 cm/sec. Prox ECA 113.3/22.5 cm/sec. Rt. Vert. 65.4/13.9 cm/sec. Lt. Vert. 48.7/14.6 cm/sec. Right Extracranial There is intimal thickening but no significant atherosclerotic plaque noted in the right common carotid artery. There is homogeneous, smooth atherosclerotic plaque noted in the right internal carotid artery. There is intimal thickening but no significant atherosclerotic plaque noted in the right external carotid artery. Antegrade flow is noted in the right vertebral artery. Left Extracranial There is intimal thickening but no significant atherosclerotic plaque noted in the left common carotid artery. There is heterogeneous, irregular atherosclerotic plaque noted in the left internal carotid artery. The atherosclerotic plaque causes acoustic shadowing. There is intimal thickening but no significant atherosclerotic plaque noted in the left external carotid artery. Antegrade flow is noted in the left vertebral artery. Procedure Carotid Duplex 23269. This is a Carotid Duplex examination using B-mode, color flow and specral Doppler. Exam performed in department. VL/Carotid Duplex Ultrasound Interpretation Summary Mild (<50%) stenosis right extracranial internal carotid. Mild (<50%) stenosis left extracranial internal carotid. Patent and antegrade vertebrals bilaterally. Limited due to calcific shadowing, alternative imaging may be beneficial Ordering Physician: Joanna Weeks Referring Physician: Nguyễn Felder Performed By: Maegan Peterson RVT
== END 2023-02-17 23:59 | disposition home or self-care (01) ==
LOC: CVS 15:05
PROVIDERS: PCP Family Medicine; Visit Provider Physician Assistant
DX: I65.23 Occlusion and stenosis of bilateral carotid arteries (principal)
CPT/HCPCS: 93880

== ENCOUNTER → 2023-03-20 | Outpatient (CLI) | payer OTHER, SELFPAY ==
[2023-03-20 08:05] LABS: Absolute Lymphocyte Count 1.78 X10^3/uL (0.83-4.51); Absolute Neutrophil Count 5.9 X10^3/uL (2.0-7.7); Basophil# 0.06 X10^3/uL; Basophil% 0.7 % (0-1); Eosinophil# 0.31 X10^3/uL; Eosinophils% 3.4 % (0-5); Hematocrit 53.2 % (40-54); Hemoglobin 17.3 g/dL (13.0-16.5); Lymphocyte # 1.78 X10^3/ul (0.83-4.51); Lymphocyte % 19.6 % (19-41); Mean Corp Hgb Conc 32.5 g/dL (32-36); Mean Corpuscular Hgb 28.7 pg (27.0-32.0); Mean Corpuscular Volume 88.4 fL (80-94); Mean Platelet Vol. 9.4 fl (6.2-12.0); Monocyte# 0.92 X10^3/uL; Monocyte% 10.1 % (0-10); NRBC Flagged by Analyzer 0 % (0-5); Neutrophil # 5.89 X10^3/uL (2.7-7.7); Neutrophil % 64.8 % (47-70); Platelet Count 225 K/mm3 (150-450); RBC Distribution Width CV 13.8 % (11.6-14.6); Red Blood Count 6.02 M/mm3 (4.6-6.2); White Blood Count 9.1 K/mm3 (4.4-11.0)
[2023-03-20 08:25] LABS: Hemoglobin A1c 5.6 % (3.8-5.6)
[2023-03-20 08:28] LABS: AST(SGOT) 8 U/L (15-37); Alanine Aminotransfer ALT/SGPT 22 U/L (16-61); Albumin, Serum 3.7 g/dL (3.2-5.0); Alkaline Phosphatase 64 U/L (45-117); Anion Gap 7 (5-15); BUN 22 mg/dL (7-18); BUN/Creat Ratio 20.6 RATIO (10-20); Calcium,Total 9.2 mg/dL (8.5-10.1); Chloride 105 mmol/L (98-107); Cholesterol 136 mg/dL (200); Creatinine, Serum 1.07 mg/dL (0.70-1.30); EST Glomerular Filtration Rate 76 mL/min (>60); Est Glom Filt Rate - Afr Amer 92 mL/min (>60); Globulin 3.7 g/dL (2.2-4.2); Glucose 138 mg/dL (74-106); High Density Lipoprotein 44 mg/dL; Magnesium 1.8 mg/dL (1.6-2.6); Potassium 4.2 mmol/L (3.5-5.1); Protein, Total 7.4 g/dL (6.4-8.2); Sodium Level 139 mmol/L (136-145); Triglycerides 144 mg/dL; Very Low Density Lipoprotein 29 mg/dL (5-40)
[2023-03-20 08:41] LABS: Microalbumin:Creatinine Ratio 163.2 mg/g CRE (<30 mg/g CRE)
== END | disposition home or self-care (01) ==
LOC: LAB 07:21
PROVIDERS: PCP Family Medicine; Referring Provider Family Medicine; Visit Provider Family Medicine
DX: E11.69 Type 2 diabetes mellitus with other specified complication (principal); I48.92 Unspecified atrial flutter
CPT/HCPCS: 36415; 80053; 80061; 82043; 82570; 83036; 83735; 85025

== ENCOUNTER → 2023-06-17 | Outpatient (CLI) | payer OTHER, SELFPAY ==
--- OUTSIDE RECORDS SUMMARY | 2023-06-17 07:52 | XMS RPT_ITS | CCD ---
Author Name Unknown Address [address] [place] [address] Organization [facility] Care Team Providers Care Chemical Research Technician Name Role Phone ASHLEY MUIR Unavailable Unavailable HARRY KELLY Unavailable Unavailable HARRY KELLY Unavailable Unavailable SARAH, VICTOR MANUEL Nath Unavailable Unavailable SABOTA, VICTOR MANUEL Nath Unavailable Unavailable SABOTA, VICTOR MANUEL Nath Unavailable Unavailable JESSICA PEÑA Unavailable Unavailable ASHLEY MUIR Unavailable Unavailable Harry Kelly MD Primary Care Provider [phone] Harry Patton Primary Care Provider Harry Patton MD Primary Care Provider [phone] Thad Auguste MD Unavailable THAD AUGUSTE Referring Unavailable HARRY PATTON Primary Care Unavailable NITA, KENYON Jw Attending Unavailable JAZ AUGUSTERIL S Referring Unavailable HARRY PATTON Primary Care Unavailable NITA, KENYON G Admitting Unavailable NITA, KENYON G Attending Unavailable HARRY PATTON Primary Care Unavailable KENYON MOYA G Attending Unavailable HARRY PATTON Referring Unavailable HARRY PATTON Primary Care Unavailable NITA, KENYON G Attending Unavailable HARRY PATTON Primary Care Unavailable NITA, KENYON G Referring Unavailable NITA, KENYON G Attending Unavailable HARRY PATTON Primary Care Unavailable NITA, KENYON G Referring Unavailable Harry Patton MD Primary Care Provider Thad Auguste MD Unavailable Medications Current Medications Medication Drug Class(es) Dates Sig (Normalized) Sig (Original) amLODIPine 10 mg oral tablet (8 sources) Dihydropyridine Calcium Channel Oscar Start: 08-21-2022 End: 09-10-2022 take 1 tablet by mouth once daily amLODIPine 10 MG tablet Take 1 tablet by mouth daily. 0 08/21/2022 Active Completed/Discontinued Medications Medication Drug Class(es) Dates Sig (Normalized) Sig (Original) allopurinol 100 mg oral tablet (7 sources) Xanthine Oxidase Inhibitor Start: 09-08-2022 End: 09-10-2022 take 100 mg by mouth once daily 100 mg, Oral, DAILY, First dose on [facility] 09/08/22 at 0900, Until Discontinued Problems Active Problems Problem Classification Problem Date Documented Da te Episodic/Chronic Cardiac dysrhythmias (20 sources) Atrial fibrillation; Translations: [Unspecified atrial fibrillation] Onset: 12-20-2021 Resolved: 09-07-2022 Chronic Diabetes mellitus with complications (12 sources) Hypertensive disorder; Translations: [Type 2 diabetes mellitus with other circulatory complications] Onset: 12-20-2021 Chronic Disorders of lipid metabolism (4 sources) Hyperlipidemia; Translations: [Hyperlipidemia, unspecified] Onset: 12-20-2021 Chronic Other nutritional; endocrine; and metabolic disorders (7 sources) Morbid obesity; Translations: [Morbid (severe) obesity due to excess calories] Onset: 12-20-2021 Chronic Other screening for suspected conditions (not mental disorders or infectious disease) (7 sources) History of polyp of colon; Translations: [Encounter for screening for malignant neoplasm of colon] Onset: 12-20-2021 Episodic Residual codes; unclassified (4 sources) Obstructive sleep apnea syndrome; Translations: [Obstructive sleep apnea (adult) (pediatric)] Onset: 12-20-2021 Chronic Unclassified (2 sources) Longstanding persistent atrial fibrillation; Translations: [Longstanding persistent atrial fibrillation] Onset: 09-07-2022 Unclassified (2 sources) Other persistent atrial fibrillation; Translations: [Other persistent atrial fibrillation] Onset: 03-22-2022 Past or Other Problems Problem Classification Problem Date Documented Da te Episodic/Chronic Cardiac dysrhythmias (4 sources) Palpitations; Translations: [Palpitations] Onset: 09-07-2022 Episodic Other aftercare (4 sources) Taking high risk medication; Translations: [Other long lines operator (current) drug therapy] Onset: 09-08-2022 Episodic Other aftercare (2 sources) Other long lines operator (current) drug therapy; Translations: [Other residential (current) drug therapy] Onset: 09-07-2022 Episodic Unclassified (1 source) Onset: 09-07-2022 09-07-2022 Results Test Name Value Interpretation Reference Range Facil ity Vital Signs Date Time Vital Sign Value Performing Clinician Facility 12-20-2022 12:00-0400 Body height 195.6 cm Kenyon Moya MD Work Phone: [facility] 12-20-2022 12:00-0400 Body mass index (BMI) [Ratio] 47.18 kg/m2 Kenyon Moya MD Work Phone: [facility] 12-20-2022 12:00-0400 Body weight 180.49 kg Kenyon Moya MD Work Phone: [facility] 12-20-2022 12:00-0400 Diastolic blood pressure 77 mm[Hg] Kenyon Moya MD Work Phone: [facility] 12-20-2022 12:00-0400 Heart rate 80 /min Kenyon Moya MD Work Phone: [facility] 12-20-2022 12:00-0400 Respiratory rate 20 /min Kenyon Moya MD Work Phone: [facility] 12-20-2022 12:00-0400 SaO2% (BldA) [Mass fraction] 95 % Kenyon Moya MD Work Phone: [facility] 12-20-2022 12:00-0400 Systolic blood pressure 132 mm[Hg] Kenyon Moya MD Work Phone: [facility] 09-10-2022 05:27-0400 Body temperature 98.01 [degF] Kenyon Moya MD Work Phone: [facility] 09-10-2022 05:27-0400 Diastolic blood pressure 76 mm[Hg] Kenyon Moya MD Work Phone: [facility] 09-10-2022 05:27-0400 Heart rate 75 /min Kenyon Moya MD Work Phone: [facility] 09-10-2022 05:27-0400 Respiratory rate 16 /min Kenyon Moya MD Work Phone: [facility] 09-10-2022 05:27-0400 SaO2% (BldA) [Mass fraction] 96 % Kenyon Moya MD Work Phone: [facility] 09-10-2022 05:27-0400 Systolic blood pressure 129 mm[Hg] Kenyon Moya MD Work Phone: [facility] 09-09-2022 23:21-0400 Body height 195.6 cm Kenyon Moya MD Work Phone: [facility] 09-09-2022 23:21-0400 Body mass index (BMI) [Ratio] 53.72 kg/m2 Kenyon Moya MD Work Phone: [facility] 09-09-2022 23:21-0400 Body weight 205.48 kg Kenyon Moya MD Work Phone: [facility] 01-03-2022 09:15-0400 Diastolic blood pressure 75 mm[Hg] Anjel Avilez MD Work Phone: [facility] 01-03-2022 09:15-0400 Heart rate 82 /min Anjel Avilez MD Work Phone: [facility] 01-03-2022 09:15-0400 Respiratory rate 17 /min Anjel Avilez MD Work Phone: [facility] 01-03-2022 09:15-0400 SaO2% (BldA) [Mass fraction] 93 % Anjel Avilez MD Work Phone: [facility] 01-03-2022 09:15-0400 Systolic blood pressure 143 mm[Hg] Anjel Avilez MD Work Phone: [facility] 01-03-2022 08:38-0400 Body temperature 97.5 [degF] Anjel Avilez MD Work Phone: [facility] 01-03-2022 07:14-0400 Body height 195.6 cm Anjel Avilez MD Work Phone: [facility] 01-03-2022 07:14-0400 Body weight 200.49 kg Anjel Avilez MD Work Phone: [facility] 12-20-2021 15:38-0400 Body height 195.6 cm Pacc 1 Work Phone: [facility] 12-20-2021 15:38-0400 Body temperature 98.2 [degF] Pacc 1 Work Phone: [facility] 12-20-2021 15:38-0400 Body weight 200.49 kg Pacc 1 Work Phone: [facility] 12-20-2021 15:38-0400 Diastolic blood pressure 82 mm[Hg] Pacc 1 Work Phone: [facility] 12-20-2021 15:38-0400 Heart rate 96 /min Pacc 1 Work Phone: [facility] 12-20-2021 15:38-0400 Respiratory rate 18 /min Pacc 1 Work Phone: [facility] 12-20-2021 15:38-0400 SaO2% (BldA) [Mass fraction] 94 % Pacc 1 Work Phone: [facility] 12-20-2021 15:38-0400 Systolic blood pressure 160 mm[Hg] Pacc 1 Work Phone: [facility] 08-30-2021 08:31-0400 Body height 195.6 cm Lynda RANGEL-C Work Phone: [facility] 08-30-2021 08:31-0400 Body temperature 98.01 [degF] Lynda RANGEL-C Work Phone: [facility] 08-30-2021 08:31-0400 Body weight 194.59 kg Lyndamariaa Venegas PA-C Work Phone: [facility] 08-30-2021 08:31-0400 Diastolic blood pressure 93 mm[Hg] Lynda Ordoñezf PA-C Work Phone: [facility] 08-30-2021 08:31-0400 Heart rate 104 /min Lynda Venegas PA-C Work Phone: [facility] 08-30-2021 08:31-0400 SaO2% (BldA) [Mass fraction] 96 % Lynda Tioga PA-C Work Phone: [facility] 08-30-2021 08:31-0400 Systolic blood pressure 156 mm[Hg] Lynda Venegas PA-C Work Phone: [facility] Encounters Encounter Date Encounter Type Care Provider Facility Start: 12-20-2022 ambulatory KENYON MOYA Facility: [facility] Start: 12-20-2022 End: 12-20-2022 Office outpatient visit 25 minutes Kenyon Moya MD Work Phone: [facility] Procedures Date Procedure Procedure Detail Performing Clinician Start: 09-10-2022 Glucose measurement, blood Kenyon Moya MD Work Phone: Start: 09-10-2022 CONTINUOUS CARDIAC MONITORING STRIP Other Other Start: 09-10-2022 Assay of magnesium Erwin More PARACHUTE MANUFACTURING SUPERVISOR-PROFILE GRINDER TECHNICIAN Work Phone: Start: 09-09-2022 CONTINUOUS CARDIAC MONITORING STRIP Other Other Start: 09-09-2022 Glucose measurement, blood Kenyon Moya MD Work Phone: Start: 09-09-2022 Glucose measurement, blood Kenyon Moya MD Work Phone: Start: 09-09-2022 Glucose measurement, blood Kenyon Moya MD Work Phone: Start: 09-09-2022 Glucose measurement, blood Kenyon Moya MD Work Phone: Start: 09-09-2022 CONTINUOUS CARDIAC MONITORING STRIP Other Other Start: 09-09-2022 Assay of magnesium Erwin Rmzaynab PARACHUTE MANUFACTURING SUPERVISOR-PROFILE GRINDER TECHNICIAN Work Phone: Start: 09-08-2022 CONTINUOUS CARDIAC MONITORING STRIP Other Other Start: 09-08-2022 Glucose measurement, blood Kenyon Moya MD Work Phone: Start: 09-08-2022 CONTINUOUS CARDIAC MONITORING STRIP Other Other Start: 09-08-2022 Glucose measurement, blood Kenyon Moya MD Work Phone: Start: 09-08-2022 End: 09-08-2022 Glucose measurement, blood Kenyon Moya MD Work Phone: Start: 09-08-2022 Assay of magnesium Erwin Rmzaynab PARACHUTE MANUFACTURING SUPERVISOR-PROFILE GRINDER TECHNICIAN Work Phone: Start: 09-07-2022 Glucose measurement, blood Kenyon Moya MD Work Phone: Start: 09-07-2022 End: 09-07-2022 Glucose measurement, blood Kenyon Moya MD Work Phone: Start: 09-07-2022 Ephys evl trnsptl tx atrial fib isolat pulm vein Kenyon Moya MD Work Phone: Start: 09-07-2022 End: 09-07-2022 ACT* LOW RANGE, POC Kenyon Moya MD Work Phone: Start: 09-07-2022 End: 09-07-2022 Glucose measurement, blood Kenyon Moya MD Work Phone: Start: 09-07-2022 End: 09-07-2022 ACT* LOW RANGE, POC Kenyon Moya MD Work Phone: Start: 09-07-2022 Glucose measurement, blood Kenyon Moya MD Work Phone: Start: 09-07-2022 CBC AND ELECTRONIC DIFF Argentina R Vásquez PARACHUTE MANUFACTURING SUPERVISOR-PROFILE GRINDER TECHNICIAN Work Phone: Start: 09-07-2022 Complete blood count with white cell differential, automated Argentina Vásquez PARACHUTE MANUFACTURING SUPERVISOR-PROFILE GRINDER TECHNICIAN Work Phone: Start: 09-07-2022 Ct heart contrast ev al cardiac structure&morph Kenyon Moya MD Work Phone: Start: 09-07-2022 End: 09-07-2022 Creatinine blood Kenyon Moya MD Work Phone: Start: 01-03-2022 Gluc bld gluc mntr d ev cleared fda spec home use Nichole Humphries MD Work Phone: Start: 01-03-2022 Colon ca scrn not hi rsk ind Lynda Tioga PA-C Work Phone: Start: 01-03-2022 Gluc bld gluc mntr d ev cleared fda spec home use Nichole Humphries MD Work Phone: Start: 01-03-2022 Colonoscopy Anjel khan MD Work Phone: Plan of Treatment Date Care Activity Detail Author Start: 03-16-2023 End: 03-16-2023 Patient encounter procedure 03/16/2023 Office Visit [facility] Start: 02-10-2023 Influenza vaccination [facility] Start: 01-03-2023 Colonoscopy COLONOSCOPY [facility] Start: 01-03-2023 COLORECTAL CANCER SCREENING COLORECTAL CANCER SCREENING [facility] Start: 12-20-2022 End: 12-20-2022 Patient encounter procedure 12/20/2022 Office Visit Electrophysiology Kenyon Moya MD [address] [place] [id number] [facility] Anjel I[facility] Start: 10-19-2022 End: 09-08-2023 Cardiac telemetry MOBILE CARDIAC TELEMETRY ECG Routine Longstanding persistent atrial fibrillation Expected: 10/19/2022, Expires: 09/08/2023 [facility] Payers Date Payer Category Payer Private Health Insurance RICKY GUERRA [id number] 2022-Present [address] [place] [address] [id number] 2022 Private Health Insurance [id number] 2021 Unknown MARLEN RODRIGUES SS PPO [id number] 2021-Present [phone] [address] [place] [address] PPO [id number] 2021 Unknown [id number] 2018 Unknown [id number] 1967 Unknown [id number] 1967 Unknown [id number] 1967 Unknown [id number] 1967 Unknown [id number] 1967 Unknown [id number] 1967 Unknown [id number] 1967 Unknown [id number] 1967 Unknown [id number] Social History Date Type Detail Facility [facility]: [facility] Start: 07-31-2012 Tobacco use and exposure Smokeless tobacco non-user [facility] Start: 08-30-2021 Alcohol intake Not Asked Viviana olivas [facility] Start: 1965 Sex Assigned At Male C [facility] Start: 08-20-2021 End: 09-07-2022 Exposure to SARS-CoV-2 (event) Not sure [facility] Start: 12-20-2021 Alcohol intake Lifetime non-d evangelina (finding) [facility] Start: 12-20-2021 History SDOH Alcohol Frequency 1 [facility] Tobacco smoking stat [facility] Start: 1965 Sex Assigned At Not on file [facility] Gender identity Not on file [facility] Clinical Notes 08-30-2021 to 12-20-2022 Referral Letter - Kenyon Moya MD - 12/20/2022 1:15 PM EDTReferral Letter - Kenyon Moya MD - 12/20/2022 1:15 PM HOLDEN Carlos - 12/20/2022 11:45 AM EDTPatient Instructions Note Date & Type Note Facility 12-20-2022 Note Formatting of this n ote might be different from the original. December 20, 2022 RE: SOHAIL ISRAEL MD [address] [place] [address] Dear Thad: Today, I saw Sohail Wilsonshaun in routine followup at [facility]. He is a 57-year-old gentleman who has morbid obesity, but remarkably has been very dedicated and has lost about 50-60 pounds. He has had an AFib ablation as well as an atrial flutter ablation in August of 2022. He is here for followup. His monitor shows brief runs of atrial ectopy but no sustained or nonsustained atrial fibrillation or atrial flutter. He feels significant improvement. His hemoglobin A1c also reports that with the weight loss is less than 6. He has had no episodes of syncope, near syncope, angina, congestive heart failure. No side effects or complications from the procedure. We had him on sotalol 80 b.i.d. 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 However, today his OR interval is greater than 300 milliseconds, which was long prior to the ablation procedure. Nonetheless, I think that since he has done so well, we should go through trials of stopping the sotalol which I did today. He will be on single drug therapy for hypertension, amlodipine. He will remain on his apixaban and is off the aspirin. At this time, I have not scheduled any followup appointments. I have asked Mr. Israel to followup with you, but I certainly would be delighted to see him again if there are any issues. Again, Thad, thank you for referring him to me. Best regards, Kenyon Moya MD Cell Water Systems Designer, [facility] Cardiac Electrophysiology cc: HARRY PATTON MD [address] [place] [address] [facility] 12-20-2022 Miscellaneous Notes December 20, 2022 RE: SOHAIL ISRAEL MD [address] [place] [address] Dear Thad: Today, I saw Sohail Israel in routine followup at [facility]. He is a 57-year-old gentleman who has morbid obesity, but remarkably has been very dedicated and has lost about 50-60 pounds. He has had an AFib ablation as well as an atrial flutter ablation in August of 2022. He is here for followup. His monitor shows brief runs of atrial ectopy but no sustained or nonsustained atrial fibrillation or atrial flutter. He feels significant improvement. His hemoglobin A1c also reports that with the weight loss is less than 6. He has had no episodes of syncope, near syncope, angina, congestive heart failure. No side effects or complications from the procedure. We had him on sotalol 80 b.i.d. 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 However, today his OR interval is greater than 300 milliseconds, which was long prior to the ablation procedure. Nonetheless, I think that since he has done so well, we should go through trials of stopping the sotalol which I did today. He will be on single drug therapy for hypertension, amlodipine. He will remain on his apixaban and is off the aspirin. At this time, I have not scheduled any followup appointments. I have asked Mr. Israel to followup with you, but I certainly would be delighted to see him again if there are any issues. Again, Thad, thank you for referring him to me. Best regards, Kenyon Moya MD [employer] Water Systems Designer, [facility] Cardiac Electrophysiology cc: MD Aida MONTALVO [address] [id number] documented in this encounter [facility] 12-20-2022 History of Presen t illness Narrative Sohail Israel is a 57 y.o. with a history of HTN, morbid obesity, paroxysmal atrial fibrillation s/p DCCv 02/2022. He presents today for 3 month follow up post [facility] PVI and CTI RFA 09/07/2022. He was also started on Sotalol for arrhythmia suppression which has been continued since discharge in August. Cardiac Imaging Reviewed: [facility] 11/26/2022: Summary: The patient's monitoring period was 10/28/2022 - 11/26/2022. Baseline sample showed Sinus Rhythm w/1st Degree AV Block with a heart rate of 70.7 bpm. There were 0 critical, 0 serious, and 4 stable events that occurred. The report analysis of the critical, serious, stable and manually triggered events are listed below. Automatically Detected Events: Manually Detected Events: 1 Stable: Sinus Rhythm w/1st Degree AV Block 1 Stable: Sinus Rhythm w/Run of V-Tach (5 beats)/1st Degree AV Block 1 Stable: Sinus Rhythm w/Couplet PVCs/PVCs (5 in 1 min) 1 Stable: Sinus Rhythm w/Run of V-Tach (4 beats)/1st Degree AV Block Echo 01/05/2021: Normal LV size and function LVEF 60% Assessment: Today he is doing well with no complaints. He has lost 55 pounds and has reduced his A1c to less than 6. Denies SOB, CP, lightheadedness, syncope. He has experienced a single brief episode of palpitations since his ablation, otherwise no episodes suggestive of atrial arhythmia. QT/QTc = 410/461 ms on ECG today. Plan: -Discontinue antiarrhythmic: Continue Sotalol 80 mg daily for three days and then stop -Continue Eliquis 5 mg BID -Continue BP management; titrate medications as needed for better BP control -Follow up with local manager city Dr. Auguste Pt ID: Sohail Israel is a 57 y.o. male Chief Complaint Patient presents with Irregular Heart Beat Patient Active Problem List Diagnosis Date Noted High risk medication use 09/08/2022 Morbid obesity 09/08/2022 Longstanding persistent atrial fibrillation 09/07/2022 Current Outpatient Medications Medication Sig Allopurinol 100 MG tablet Take 1 tablet by mouth daily. amLODIPine 10 MG tablet Take 1 tablet by mouth daily. apixaban 5 MG tablet Take 1 tablet by mouth 2 times daily. Cinnamon 500 MG capsule Take 2 capsules by mouth daily. Empagliflozin 25 MG tablet Take 1 tablet by mouth daily. insulin detemir (Levemir FlexPen) 100 UNIT/ML Solution Pen-injector injection Inject 47 Units under the skin at bedtime. metFORMIN 1000 MG tablet Take 1 tablet by mouth 2 times daily. Rosuvastatin 10 MG tablet Take 1 tablet by mouth daily. Sotalol 80 MG tablet Take 1 tablet by mouth every 12 hours. Vascepa 1 g capsule Take 2 capsules by mouth 2 times daily. Social History Socioeconomic History Marital status: Spouse name: Not on file Number of children: Not on file Years of education: Not on file Highest education level: Not on file Occupational History Not on file Tobacco Use Smoking status: Not on file Smokeless tobacco: Not on file Substance and Sexual Activity Alcohol use: Not on file Drug use: Not on file Sexual activity: Not on file Other Topics Concern Not on file Social History Narrative Not on file Social Determinants of Health Financial Resource Strain: Not on file Food Insecurity: Not on file Transportation Needs: Not on file Physical Activity: Not on file Stress: Not on file Social Connections: Not on file Intimate Partner Violence: Not on file Housing Stability: Not on file Review of Systems Constitutional: Negative for malaise/fatigue. Skin: Negative. Eyes: Negative. Respiratory: Negative. Gastrointestinal: Negative. Musculoskeletal: Negative. Neurological: Negative. Psychiatric: Negative. Allergy/Immunology: Negative. Endocrine: Negative. Physical Exam Constitutional: alert and oriented Head: Normocephalic. Neck: Neck supple. Cardiovascular: Normal rate, regular rhythm and normal heart sounds. Lower Extremities: No peripheral edema Pulmonary/Chest: Effort normal and breath sounds normal. Neurological: No focal deficits. Skin: Warm and dry. Psychiatric: Affect normal. ECG: SR, 1st degree AV block. QT/QTc = 410/461 ms See letter to referring for further details regarding the pt. plan Follow up with Dr. Moya as needed. HOLDEN Jensen 12/20/2022 1:18 PM Attending Physician Note (GC) I saw and personally examined this patient with the Fellow/PERSONAL DRIVER/Resident. I have discussed the findings and therapeutic plan with the Fellow/PERSONAL DRIVER/Resident. I agree with the history, physical examination and medical decisions as outlined. Further comments are added below Subjective & Physical BP 132/77 (BP Location: Left arm, BP Position: Sitting) Pulse 80 Resp 20 Ht 1.956 m (6' 5 ) Wt (!) 180.5 kg (397 lb 14.4 oz) SpO2 95% BMI 47.18 kg/m Assessment & Plan Patient Active Problem List Diagnosis Longstanding persistent atrial fibrillation High risk medication use Morbid obesity 57 you AFib abnd flutter CV 02/2022 PVI CTI RFA 09/01 HTN DM TONYA Sotalol 0 BID Alert & Oriented Kenyon Moya MD 12/20/2022 1:07 PM Cell Water Systems Designer, [facility] Cardiac Electrophysiology Patient Education Patient education regarding the following topic(s) was provided on 12/20/2022: medication changes (Stop sotalol - take one tablet daily for three days then discontinue medication). Those in attendance for the education included: patient and spouse. Barriers in providing the education included: none. The following methods were used in providing the education: explanation and handout. [facility] handouts given included: After visit summary. The response of those in attendance was: states/identifies education topic. The following Clinical Intervention(s) occurred during today s visit: None documented in this encounter [facility] 12-20-2022 Instructions Archana Roman RN - 12/20/2022 11:45 AM EDT Stop sotalol - take one tablet daily for three days then discontinue medication --your antiarrhythmic clinic appt in March has been canceled. Otherwise continue current medications, including apixaban Follow-up appointment may be scheduled/determined in as needed with Dr. Moya Thank you for choosing [facility] for your Heart Care. [employer] is an available tool to securely access your online medical information. Please ask to enroll during any [facility] appointment. Once enrolled, your MD reviewed test results will be available for you to review at your convenience. [employer] messaging is reserved for non urgent messages and responses may take a few days. Call the [facility] at [phone] option 6, option 3 for urgent EP questions/concerns M-F 8 to 4:00 Call Scheduling for any appointment/procedure verification or changes [phone] If we are sending you an Event monitor and you have not received it when expected, please call the office. For any questions/problems with your monitor please call Bryan at [phone]. [facility] testing and procedure patient Instructions may be obtained at: [email or web address] Insurance Concerns: [email or web address] documented in this encounter [facility] 09-10-2022 Hospital course Narrative Discharge Summary Name: Sohail Israel Age: 56 y.o. Birthday: 1965 Admit Date: 09/07/2022 7:51 AM Discharge Date: 09/10/22 Discharge Unit: [facility] Admission Information Admitting Physician: Kenyon Moya MD Discharge Information Discharge Physician: Shelly Rebolledo MD/Peggy Fuller CNP Problem List Active Hospital Problems Diagnosis Longstanding persistent atrial fibrillation High risk medication use Morbid obesity Resolved Hospital Problems No resolved problems to display. Brief Summary of Hospital Course for Discharge Summary: Sohail Israel is a 56 y.o. male with persistent AF, AFL, DM type II, HTN, polycythemia, TONYA, morbid obesity, possible thromboembolic event/retinal artery occlusion. He was first diagnosed with atrial fibrillation about 2 years ago when he presented with fatigue and dyspnea. He underwent cardioversion on 03/11/22 however had recurrent AF 1 week later documented on EKG. He remains fatigued and dyspneic. No prior AAD therapy or ablations. His EF is normal and normal nuclear stress test in 2020. He likely has longstanding persistent atrial fibrillation. Referred to Dr. Moya with recommendations to pursue AF RFA and CTI RFA. He presented 09/07 for the procedure and underwent successful WACA with PVI as well as CTI RFA. He was initiated on sotalol after the procedure. He as initially placed on sotalol 120mg BID however due to excessive QT prolongation the dose was decreased to 80mg BID. He was ultimately discharged on 09/10 with plans to continue sotalol 80mg BID. QT/QTc on discharge 434/484ms. Follow up with 30 day event monitor in 6 weeks and EP follow up in 3-4 months. Continue Eliquis. PPI x 30 days. The day of discharge, the patient was doing well. VS were stable. He denied any complaints of CP, dyspnea, LH, dizziness, palpitations, syncope, N/V, difficulty urinating or ambulating. Physical exam on day of discharge Constitutional: patient is awake, alert and in no distress today with a pleasant affect. Chest: lungs clear to auscultation Cardiovascular: regular rate and rhythm; S1 normal, S2 normal, and there are no murmurs, rub or gallops appreciated Extremities: Pedal edema is 1+ Groin access sites: ecchymosis noted around left groin site extending to outer thigh and down to scrotum; area overall soft and nontender Neurological: She is alert and oriented to person, place and time. Skin: No cyanosis. Nails show no clubbing. ECG: NSR QT/QTc 434/484ms Vital signs on the day of discharge BP 129/76 (BP Location: Right arm, BP Position: Lying) Pulse 75 Temp 98 F (36.7 C) (Oral) Resp 16 Ht 1.956 m (6' 5 ) Wt (!) 205.5 kg (453 lb) SpO2 96% BMI 53.72 kg/m Summary of last selected lab results and date obtained: Lab Results Component Value Date WBC 10.25 (H) 09/08/2022 HGB 16.3 09/08/2022 HCT 49.4 (H) 09/08/2022 PLATELET 208 09/08/2022 MCV 86.4 09/08/2022 Lab Results Component Value Date SODIUM 134 (L) 09/10/2022 POTASSIUM 3.9 09/10/2022 CHLORIDE 103 09/10/2022 CO2 22 09/10/2022 BUN 23 09/10/2022 CREATSERUM 0.94 09/10/2022 GLUCOSE 159 (H) 09/10/2022 No results found for: ALT, TRANSFERASEA, AST, GGT, GAMMAGT, ALKPHOS, BILITOTAL, BILIDIRECT Brief Summary of Labs for Discharge Summary: Discharge Orders AMB REFERRAL TO ANTI-ARRHYTHMIA CLINIC MOBILE CARDIAC TELEMETRY Current Outpatient Meds: Medication List for when you go home START taking these medications aspirin 81 MG CHEW chewable tablet Chew 1 tablet daily. Start taking on: September 11, [address] tablet DR Take 1 tablet by mouth daily. Commonly known as: PROTONIX Start taking on: September 11, 2022 Sotalol 80 MG TABS Take 1 tablet by mouth every 12 hours. Commonly known as: BETAPACE CONTINUE taking these medications Allopurinol 100 MG TABS Take 1 tablet by mouth daily. Commonly known as: ZYLOPRIM amLODIPine 10 MG TABS Take 1 tablet by mouth daily. Commonly known as: NORVASC apixaban 5 MG TABS Take 1 tablet by mouth 2 times daily. Commonly known as: ELIQUIS Cinnamon 500 MG CAPS Take 2 capsules by mouth daily. Empagliflozin 25 MG TABS Take 1 tablet by mouth daily. Commonly known as: JARDIANCE Levemir FlexPen 100 UNIT/ML SOPN injection Inject 47 Units under the skin at bedtime. Generic drug: insulin detemir metFORMIN 1000 MG TABS Take 1 tablet by mouth 2 times daily. Commonly known as: GLUCOPHAGE Rosuvastatin 10 MG TABS Take 1 tablet by mouth daily. Commonly known as: CRESTOR Vascepa 1 g CAPS Take 2 capsules by mouth 2 times daily. Generic drug: Icosapent Ethyl STOP taking these medications carveDILOL 12.5 MG TABS Commonly known as: COREG Follow-up: Harry Patton MD [address] [facility] [id number] Follow up Upcoming Appointments (up to five)-Some appointments for Medical Center outpatient clinics or diagnostic testing locations are not displayed below Provider Department Dept Phone 12/20/2022 11:45 AM Kenyonmarcus Moya [facility] Arrive at: Arrive to [facility] Registration Desk [phone] 03/16/2023 1:00 PM [facility] [place] Arrive at: Arrive to 1st Floor Registration [phone] Associated attestation - Shelly Rebolledo MD - 09/10/2022 1:38 PM EDT Electrophysiology attending physician I saw and personally/independently examined this patient with the nurse practitioner on 09/10/2022. We will discharge patient home today. The plan was developed mutually Shelly Rebolledo MD. Professor of Clinical Internal Medicine. [facility] [email or web address] documented in this encounter [facility] 09-09-2022 Note Formatting of this n ote might be different from the original. Problem: Patient Care Overview Goal: Plan of Care Review Vital signs completed per protocol. Monitoring intake and output q8h. Assessing pain q4h and medicate prn. Obtaining daily weights. Labs completed per protocol and will report any abnormal values to physician. Will continue hourly rounding per hospital protocol. Plan of care reviewed and updated with patient and patient demonstrates understanding. Outcome: Ongoing Problem: Arrhythmia/Dysrhythmia (Symptomatic) (Adult) Goal: Signs and Symptoms of Listed Potential Problems Will be Absent, Minimized or Managed (Arrhythmia/Dysrhythmia) Description: Signs and symptoms of listed potential problems will be absent, minimized or managed by discharge/transition of care (reference Arrhythmia/Dysrhythmia (Symptomatic) (Adult) CPG). Outcome: Ongoing [facility] 09-09-2022 Miscellaneous Notes Problem: Patient Care Overview Goal: Plan of Care Review Vital signs completed per protocol. Monitoring intake and output q8h. Assessing pain q4h and medicate prn. Obtaining daily weights. Labs completed per protocol and will report any abnormal values to physician. Will continue hourly rounding per hospital protocol. Plan of care reviewed and updated with patient and patient demonstrates understanding. Outcome: Ongoing Problem: Arrhythmia/Dysrhythmia (Symptomatic) (Adult) Goal: Signs and Symptoms of Listed Potential Problems Will be Absent, Minimized or Managed (Arrhythmia/Dysrhythmia) Description: Signs and symptoms of listed potential problems will be absent, minimized or managed by discharge/transition of care (reference Arrhythmia/Dysrhythmia (Symptomatic) (Adult) CPG). Outcome: Ongoing Problem: Arrhythmia/Dysrhythmia (Symptomatic) (Adult) Goal: Signs and Symptoms of Listed Potential Problems Will be Absent, Minimized or Managed (Arrhythmia/Dysrhythmia) Description: Signs and symptoms of listed potential problems will be absent, minimized or managed by discharge/transition of care (reference Arrhythmia/Dysrhythmia (Symptomatic) (Adult) CPG). Outcome: Met This Shift Problem: Patient Care Overview Goal: Plan of Care Review Outcome: Ongoing Problem: Patient Care Overview Goal: Plan of Care Review Outcome: Ongoing Goal: Individualization & Mutuality Outcome: Ongoing Goal: Discharge Needs Assessment Outcome: Ongoing Goal: Interdisciplinary Rounds/Family Conf Outcome: Ongoing Problem: Arrhythmia/Dysrhythmia (Symptomatic) (Adult) Goal: Signs and Symptoms of Listed Potential Problems Will be Absent, Minimized or Managed (Arrhythmia/Dysrhythmia) Description: Signs and symptoms of listed potential problems will be absent, minimized or managed by discharge/transition of care (reference Arrhythmia/Dysrhythmia (Symptomatic) (Adult) CPG). Outcome: Ongoing Problem: Patient Care Overview Goal: Plan of Care Review Outcome: Ongoing Problem: Arrhythmia/Dysrhythmia (Symptomatic) (Adult) Goal: Signs and Symptoms of Listed Potential Problems Will be Absent, Minimized or Managed (Arrhythmia/Dysrhythmia) Description: Signs and symptoms of listed potential problems will be absent, minimized or managed by discharge/transition of care (reference Arrhythmia/Dysrhythmia (Symptomatic) (Adult) CPG). Outcome: Ongoing I certify that this patient requires inpatient services at this time. I anticipate the expected length of stay will include at least two midnights. Current treatment plan includes Initiation of high risk medication Sotalol requiring continuous cardiac monitoring and serial ECGs for 5 doses at BID dosing due to risk of SCD/TdP with prolonged QT/QTc. Plans for post hospitalization care will be discharge to home. Associated Problem(s): Morbid obesity BMI 53.43 Heart healthy carb controlled diet Encourage ambulation Lifestyle and risk factor management are recommended to prevent from recurrent atrial fibrillation including: - Decrease weight. [place] BMI is <30 kg/M2. In the Legacy Study of atrial fibrillation, weight loss of >10% resulted in a 6-fold greater arrhythmia-free survival - Weight fluctuation of >5%, offsets the benefits as it increases risk for atrial fibrillation recurrence by 2-fold. - Regular moderate intensity exercise of 150 minutes per week. - Avoid high intensity exercise since it will increase the risk of atrial fibrillation [higher risk of atrial fibrillation in cyclist, cross-country running, [place]] - Abstain/decrease alcohol as to no more than 2 drinks per week. - Decrease caffeine to no more than 1 cup per day and make sure it is before noon. - Eliminate soft drinks altogether. - Make sure to get 6-8 hours of sleep each night and go to bed at the same time each night within +/- 1 hour. Associated Problem(s): High risk medication use Sotalol initiation Continuous cardiac monitoring for 5 doses at BID dosing Serial ECGs for QT/QTc measurement 2-3 hours after each dose Daily chem 7 and Mg; Keep K+>4 and Mg>2. Replace per protocol Estimated Creatinine Clearance: 174 mL/min (by C-G formula based on SCr of 0.93 mg/dL). Enroll in [facility] clinic Follow up with Dr. Moya in 3-4 months Associated Problem(s): Longstanding persistent atrial fibrillation Symptomatic; recurrent AF/AFl 1 week post cardioversion 02/2022 S/p PVI WACA and CTI RFA on 09/07/22 CHADS-VASc score=5 on Eliquis 5 mg BID QT/QTc prolonging after 3rd dose Decrease Sotalol 80 mg Q12hr and monitor for 2 more doses Remains in NSR w/1st deg AVB Problem: Patient Care Overview Goal: Plan of Care Review Outcome: Ongoing Goal: Individualization & Mutuality Outcome: Ongoing Goal: Discharge Needs Assessment Outcome: Ongoing Goal: Interdisciplinary Rounds/Family Conf Outcome: Ongoing documented in this encounter [facility] 09-09-2022 Note Formatting of this n ote might be different from the original. Problem: Arrhythmia/Dysrhythmia (Symptomatic) (Adult) Goal: Signs and Symptoms of Listed Potential Problems Will be Absent, Minimized or Managed (Arrhythmia/Dysrhythmia) Description: Signs and symptoms of listed potential problems will be absent, minimized or managed by discharge/transition of care (reference Arrhythmia/Dysrhythmia (Symptomatic) (Adult) CPG). Outcome: Met This Shift Problem: Patient Care Overview Goal: Plan of Care Review Outcome: Ongoing [facility] 09-09-2022 History of Presen t illness Narrative Sohail Israel was seen on the [facility] EP service today 09/09/2022. Principal Problem: Longstanding persistent atrial fibrillation Active Problems: High risk medication use Morbid obesity Assessment and Plan: Longstanding persistent atrial fibrillation Symptomatic; recurrent AF/AFl 1 week post cardioversion 02/2022 S/p PVI WACA and CTI RFA on 09/07/22 CHADS-VASc score=5 on Eliquis 5 mg BID QT/QTc prolonging after 3rd dose Decrease Sotalol 80 mg Q12hr and monitor for 2 more doses Remains in NSR w/1st deg AVB High risk medication use Sotalol initiation Continuous cardiac monitoring for 5 doses at BID dosing Serial ECGs for QT/QTc measurement 2-3 hours after each dose Daily chem 7 and Mg; Keep K+>4 and Mg>2. Replace per protocol Estimated Creatinine Clearance: 174 mL/min (by C-G formula based on SCr of 0.93 mg/dL). Enroll in [facility] clinic Follow up with Dr. Moya in 3-4 months Morbid obesity BMI 53.43 Heart healthy carb controlled diet Encourage ambulation Lifestyle and risk factor management are recommended to prevent from recurrent atrial fibrillation including: - Decrease weight. [place] BMI is <30 kg/M2. In the Legacy Study of atrial fibrillation, weight loss of >10% resulted in a 6-fold greater arrhythmia-free survival - Weight fluctuation of >5%, offsets the benefits as it increases risk for atrial fibrillation recurrence by 2-fold. - Regular moderate intensity exercise of 150 minutes per week. - Avoid high intensity exercise since it will increase the risk of atrial fibrillation [higher risk of atrial fibrillation in cyclist, cross-country running, [place]] - Abstain/decrease alcohol as to no more than 2 drinks per week. - Decrease caffeine to no more than 1 cup per day and make sure it is before noon. - Eliminate soft drinks altogether. - Make sure to get 6-8 hours of sleep each night and go to bed at the same time each night within +/- 1 hour. Subjective Findings: No complaints. Tolerating Sotalol without noted side effects. Physical Examination: Temp: [97.7 F (36.5 C)-98.4 F (36.9 C)] 98.1 F (36.7 C) Pulse (Heart Rate): [72-119] 73 Resp Rate: [16-18] 16 BP: (116-137)/(66-85) 127/76 O2 Sat (%): [94 %-97 %] 96 % Weight: [205.5 kg (453 lb)] 205.5 kg (453 lb) BP 127/76 (BP Location: Right arm, BP Position: Sitting) Pulse 73 Temp 98.1 F (36.7 C) (Oral) Resp 16 Ht 1.956 m (6' 5 ) Wt (!) 205.5 kg (453 lb) Comment: standing, bilateral shoes on SpO2 96% BMI 53.72 kg/m Constitutional: He is awake, alert and in no distress today with a pleasant affect. Chest: lungs clear to auscultation, breath sounds equal and symmetric Cardiovascular: Normal carotid pulses, the JVP is not elevated, regular rate and rhythm; S1 normal, S2 normal, and there are no murmurs, rub or gallops appreciated Extremities: Warm and dry. No LE edema. Pulses palpable. Moving all extremities. Rt Groin access sites: No hematoma. No bleeding. Ecchymotic Neurological: He is alert and oriented to person, place and time. Skin: No cyanosis. Nails show no clubbing. Psychiatric: Mood, memory, affect and judgment appear to be normal. Labs and Data: ECG/Telemetry: NSR w/1st deg AVB QT/QTc 460/499ms after 3rd dose Allopurinol 100 mg Oral Daily amLODIPine 10 mg Oral QHS apixaban 5 mg Oral Q12H aspirin 81 mg Oral Daily dapagliflozin 5 mg Oral Daily Insulin detemir 47 Units Subcutaneous QHS Insulin lispro Subcutaneous 4x daily w/meals, HS metFORMIN 1,000 mg Oral BID omega-3 acid ethyl esters 2 g Oral BID Pantoprazole 40 mg Oral Daily Rosuvastatin 10 mg Oral QHS Sotalol 80 mg Oral Q12HNS Intake/Output Summary (Last 24 hours) at 09/09/2022 1147 Last data filed at 09/09/2022 0510 Gross per 24 hour Intake 860 ml Output -- Net 860 ml Recent Labs 09/07/22 0901 09/07/22 0920 09/08/22 0010 09/08/22 0835 09/08/22203609/09/22 0044 09/09/22 0754 WBC 7.88 -- 10.25* -- -- -- -- HGB 17.9* -- 16.3 -- -- -- -- HCT 51.0* -- 49.4* -- -- -- -- PLATELET 203 -- 208 -- -- -- -- SODIUM 139 -- 138 -- -- 137 -- POTASSIUM 4.2 -- 3.8 -- -- 4.9 -- CHLORIDE 106 -- 107 -- -- 105 -- CO2 22 -- 18* -- -- 22 -- BUN 19 -- 24 -- -- 24 -- CREATSERUM 0.99 -- 0.93 -- -- 0.97 -- GLUCOSE 190* < > -- < > 193* 184* 154* MAGNESIUM -- -- 1.4* -- -- 1.9 -- < > = values in this interval not displayed. INR Date Value Ref Range Status 09/07/2022 1.0 0.9 - 1.1 Final PTT Date Value Ref Range Status 09/07/2022 26.8 24.0 - 34.3 sec Final Felicita More, PHYLLIS-PROFILE GRINDER TECHNICIAN 09/09/2022 11:47 AM Associated attestation - Shelly Rebolledo MD - 09/09/2022 3:25 PM EDT Electrophysiology attending physician I saw and personally/independently examined this patient with the nurse practitioner on 09/09/2022. QTc interval prolonged significantly while on sotalol 120 mg po bid, therefore, we lowered the sotalol dose to sotalol 80 mg po bid. The plan was developed mutually Shelly Rebolledo MD. Professor of Clinical Internal Medicine. [facility] [email or web address] Discharge Planning Patient Assessment Admission Assessment Patient Assessment Completed: Initial Anticipated discharge disposition: Home Reason for Admission: high risk medication Sotalol Is the patient able to participate in the assessment?: Yes Information source: Review of Medical Record Information Source Name/Contact: Sohail Israel [phone] Demographics Verified and Updated: Yes Has the patient been admitted to any hospital in the last 30 days?: No Advanced Care Planning Has the patient completed Advance Directives?: Completed, Not Available in Medical Record Copy of Advance Directives was requested?: No Legal Next of Kin Does the patient have a Guardian?: No Spouse: Yes Name and Contact information: Sulema Israel spouse [phone] Adult Child(adalgisa), List All Adult Children: (Pt with 4 adult children) Reviewed and Updated in Demographics? : Yes Outpatient Providers Does patient have a primary care physician? : Yes When was the patient's last PCP visit?: > 30 days Does the patient follow any specialists?: Yes Reviewed and updated Care Team?: Yes Patient Care Team: Harry Patton MD as PCP - General (Family Medicine) Thad Auguste MD (Cardiovascular Disease) Environment/Caregivers Is the patient from a facility or halfway?: No Patient lives with: Spouse or Partner Living Environment: House How many steps does the patient have to navigate to enter or inside the home? : 3 steps Does the patient have a first floor set-up with bed and bathroom?: Yes Patient Caregiving Responsibilities: Self Patient-identified caregiver/support network: Family Who does the patient identify as a teachable caregiver(s)?: Spouse or Partner Services Does the patient use a home health or hospice agency?: No Current with dialysis?: No Does the patient use any community programs or services?: Yes Does patient use DME? : bipap, glucometer DME provider name and contact: Dr. Molina Sandoval Does the patient use oxygen?: No Does patient use medical supplies? : none, glucose testing strips Anticipated Changes Related to Illness/Injury? : No Initial ADLs Prior to Arrival What is the patient's baseline physical functioning prior to this acute illness?: independent What is the patient's baseline cognitive functioning prior to this acute illness?: independent Is the patient's baseline functioning changed by this acute illness? : No Concerns with patient being able to care for themselves at home? : No Are there therapy or specialists consults?: No Does the patient's home require any home modifications for discharge? : No CM to recommend therapy or other consults? : No Medication Management Does the patient have prescription insurance coverage? : Yes Is the patient on Anticoagulation? : Yes Provider or Clinic that manages Anticoagulation?: [facility] [place] [address] [phone] [facility] [id number] Category Analyst Does the patient or outside sales representative express financial concerns? : No Coping/Stress Concerns about patient s coping and stress?: No Initial Discharge Planning Anticipated discharge disposition: Home Transportation Available for Discharge: Family or Friend Anticipated DME: none Anticipated Services at Discharge: Outpatient follow up Patient Assessment Completed: Initial Risk of Readmission: 3.8 Category Reference: High:16-100 Mod-High:10-16 Mod-Low: 5-10 Low: 0-5 Expected Discharge Date: 09/12/2022 Discharge Planning Summary Anticipate discharge home. No previous [facility] needs Antico[facility]- Eliquis Case Management Plan CM to follow for discharge planning needs and coordination. Marizol Stacy RN BSN Clinical Rat Culturist Discharge Planning Patient Assessment Admission Assessment Patient Assessment Completed: Initial Anticipated discharge disposition: Home Reason for Admission: high risk medication Sotalol Is the patient able to participate in the assessment?: Yes Information source: Review of Medical Record Information Source Name/Contact: Sohail Israel [phone] Demographics Verified and Updated: Yes Has the patient been admitted to any hospital in the last 30 days?: No Advanced Care Planning Has the patient completed Advance Directives?: Completed, Not Available in Medical Record Legal Next of Kin Does the patient have a Guardian?: No Spouse: Yes Name and Contact information: Sulema Israel spouse PH [phone] Adult Child(adalgisa), List All Adult Children: (Pt with 4 adult children) Reviewed and Updated in Demographics? : Yes Outpatient Providers Does patient have a primary care physician? : Yes When was the patient's last PCP visit?: > 30 days Does the patient follow any specialists?: Yes Reviewed and updated Care Team?: Yes Patient Care Team: Harry Patton MD as PCP - General (Family Medicine) Thad Auguste MD (Cardiovascular Disease) Environment/Caregivers Is the patient from a facility or halfway?: No Patient lives with: Spouse or Partner Living Environment: House How many steps does the patient have to navigate to enter or inside the home? : 3 steps Does the patient have a first floor set-up with bed and bathroom?: Yes Patient Caregiving Responsibilities: Self Patient-identified caregiver/support network: Family Who does the patient identify as a teachable caregiver(s)?: Spouse or Partner Services Does the patient use a home health or hospice agency?: No Current with dialysis?: No Does the patient use any community programs or services?: Yes Does patient use DME? : bipap, glucometer DME provider name and contact: Dr. Molina Sandoval Does the patient use oxygen?: No Does patient use medical supplies? : none, glucose testing strips Anticipated Changes Related to Illness/Injury? : No Initial ADLs Prior to Arrival What is the patient's baseline physical functioning prior to this acute illness?: independent What is the patient's baseline cognitive functioning prior to this acute illness?: independent Is the patient's baseline functioning changed by this acute illness? : No Concerns with patient being able to care for themselves at home? : No Are there therapy or specialists consults?: No Does the patient's home require any home modifications for discharge? : No CM to recommend therapy or other consults? : No Medication Management Does the patient have prescription insurance coverage? : Yes Is the patient on Anticoagulation? : Yes Provider or Clinic that manages Anticoagulation?: [employer] [facility] [address] [place] [address] [address] [facility] [id number] Category Analyst Does the patient or outside sales representative express financial concerns? : No Coping/Stress Concerns about patient s coping and stress?: No Initial Discharge Planning Anticipated discharge disposition: Home Transportation Available for Discharge: Family or Friend Anticipated DME: none Anticipated Services at Discharge: Outpatient follow up Patient Assessment Completed: Initial Risk of Readmission: 3.8 Category Reference: High:16-100 Mod-High:10-16 Mod-Low: 5-10 Low: 0-5 Expected Discharge Date: 09/12/2022 Discharge Planning Summary Anticipate pt will return home at discharge. Case Management Plan CM to follow for discharge planning needs and coordination. Marizol Stacy RN BSN Clinical Rat Culturist Sohail Israel was seen on the [facility] EP service today 09/08/2022. Principal Problem: Longstanding persistent atrial fibrillation Active Problems: High risk medication use Morbid obesity Assessment and Plan: Longstanding persistent atrial fibrillation Symptomatic; recurrent AF/AFl 1 week post cardioversion 02/2022 S/p PVI WACA and CTI RFA on 09/07/22 CHADS-VASc score=5 on Eliquis 5 mg BID Post RFA with SR/ST 1st deg AVB ASA 81 mg daily for 30 days then stop Protonix for 30 days post RFA then stop 30 day MCT in 6-8 weeks for arrhythmia monitoring Coreg discontinued Start Sotalol 120 mg Q12hr today Follow up with Dr. Moya in ~4 months post ablation High risk medication use Sotalol initiation Continuous cardiac monitoring for 5 doses at BID dosing Serial ECGs for QT/QTc measurement 2-3 hours after each dose Daily chem 7 and Mg; Keep K+>4 and Mg>2. Replace per protocol Estimated Creatinine Clearance: 174 mL/min (by C-G formula based on SCr of 0.93 mg/dL). Enroll in [facility] clinic Follow up with Dr. Moya in 3-4 months Morbid obesity BMI 53.43 Heart healthy carb controlled diet Encourage ambulation Lifestyle and risk factor management are recommended to prevent from recurrent atrial fibrillation including: - Decrease weight. [place] BMI is <30 kg/M2. In the Legacy Study of atrial fibrillation, weight loss of >10% resulted in a 6-fold greater arrhythmia-free survival - Weight fluctuation of >5%, offsets the benefits as it increases risk for atrial fibrillation recurrence by 2-fold. - Regular moderate intensity exercise of 150 minutes per week. - Avoid high intensity exercise since it will increase the risk of atrial fibrillation [higher risk of atrial fibrillation in cyclist, cross-country running, [place]] - Abstain/decrease alcohol as to no more than 2 drinks per week. - Decrease caffeine to no more than 1 cup per day and make sure it is before noon. - Eliminate soft drinks altogether. - Make sure to get 6-8 hours of sleep each night and go to bed at the same time each night within +/- 1 hour. Subjective Findings: No complaints this AM. Denies palpitations, CP, SOB. No groin pain or bleeding. Ambulatory. Physical Examination: Temp: [97.7 F (36.5 C)-98.6 F (37 C)] 98.1 F (36.7 C) Pulse (Heart Rate): [82-140] 128 Resp Rate: [11-26] 20 BP: (111-151)/(68-84) 120/81 O2 Sat (%): [92 %-98 %] 94 % Weight: [204.4 kg (450 lb 9.6 oz)] 204.4 kg (450 lb 9.6 oz) BP 120/81 (BP Location: Right arm, BP Position: Sitting) Pulse 128 Temp 98.1 F (36.7 C) (Oral) Resp 20 Ht 1.956 m (6' 5 ) Wt (!) 204.4 kg (450 lb 9.6 oz) Comment: standing SpO2 94% BMI 53.43 kg/m Constitutional: He is awake, alert and in no distress today with a pleasant affect. Chest: lungs clear to auscultation, breath sounds equal and symmetric Cardiovascular: Normal carotid pulses, the JVP is not elevated, regular and tachycardic; S1 normal, S2 normal, and there are no murmurs, rub or gallops appreciated Extremities: Warm and dry. No LE edema. Pulses palpable. Moving all extremities. Rt Groin access sites: No hematoma or bleeding. Moderate ecchymosis. TTP. Dressing intact. Neurological: He is alert and oriented to person, place and time. Skin: No cyanosis. Nails show no clubbing. Psychiatric: Mood, memory, affect and judgment appear to be normal. Labs and Data: ECG/Telemetry: ST w/1st deg AVB Allopurinol 100 mg Oral Daily amLODIPine 10 mg Oral QHS apixaban 5 mg Oral Q12H aspirin 81 mg Oral Daily dapagliflozin 5 mg Oral Daily Insulin detemir 47 Units Subcutaneous QHS Insulin lispro Subcutaneous 4x daily w/meals, HS metFORMIN 1,000 mg Oral BID omega-3 acid ethyl esters 2 g Oral BID Pantoprazole 40 mg Oral Daily Rosuvastatin 10 mg Oral QHS Sotalol 120 mg Oral Q12HNS Intake/Output Summary (Last 24 hours) at 09/08/2022 1309 Last data filed at 09/08/2022 1232 Gross per 24 hour Intake 3100 ml Output 950 ml Net 2150 ml Recent Labs 09/07/22 0838 09/07/22 0901 09/07/22 0920 09/07/22 2204 09/08/22 0010 09/08/22 0835 09/08/22 1132 WBC -- 7.88 -- -- 10.25* -- -- HGB -- 17.9* -- -- 16.3 -- -- HCT -- 51.0* -- -- 49.4* -- -- PLATELET -- 203 -- -- 208 -- -- SODIUM -- 139 -- -- 138 -- -- POTASSIUM -- 4.2 -- -- 3.8 -- -- CHLORIDE -- 106 -- -- 107 -- -- CO2 -- 22 -- -- 18* -- -- BUN -- 19 -- -- 24 -- -- CREATSERUM 1.01 0.99 -- -- 0.93 -- -- GLUCOSE -- 190* < > 252* -- 202* 191* MAGNESIUM -- -- -- -- 1.4* -- -- < > = values in this interval not displayed. INR Date Value Ref Range Status 09/07/2022 1.0 0.9 - 1.1 Final PTT Date Value Ref Range Status 09/07/2022 26.8 24.0 - 34.3 sec Final Felicita More APRN-RAKESH 09/08/2022 1:09 PM Associated attestation - Shelly Rebolledo MD - 09/08/2022 3:51 PM EDT Electrophysiology attending physician I saw and personally/independently examined this patient with the nurse practitioner on 09/08/2022. We will start sotalol load. The plan was developed mutually Shelly Rebolledo MD. Professor of Clinical Internal Medicine. [facility] [email or web address] documented in this encounter [facility] 09-09-2022 Note Formatting of this n ote might be different from the original. Problem: Patient Care Overview Goal: Plan of Care Review Outcome: Ongoing Goal: Individualization & Mutuality Outcome: Ongoing Goal: Discharge Needs Assessment Outcome: Ongoing Goal: Interdisciplinary Rounds/Family Conf Outcome: Ongoing Problem: Arrhythmia/Dysrhythmia (Symptomatic) (Adult) Goal: Signs and Symptoms of Listed Potential Problems Will be Absent, Minimized or Managed (Arrhythmia/Dysrhythmia) Description: Signs and symptoms of listed potential problems will be absent, minimized or managed by discharge/transition of care (reference Arrhythmia/Dysrhythmia (Symptomatic) (Adult) CPG). Outcome: Ongoing [facility] 09-08-2022 Note Formatting of this n ote might be different from the original. Problem: Patient Care Overview Goal: Plan of Care Review Outcome: Ongoing Problem: Arrhythmia/Dysrhythmia (Symptomatic) (Adult) Goal: Signs and Symptoms of Listed Potential Problems Will be Absent, Minimized or Managed (Arrhythmia/Dysrhythmia) Description: Signs and symptoms of listed potential problems will be absent, minimized or managed by discharge/transition of care (reference Arrhythmia/Dysrhythmia (Symptomatic) (Adult) CPG). Outcome: Ongoing [facility] 09-08-2022 Note Formatting of this n ote might be different from the original. I certify that this patient requires inpatient services at this time. I anticipate the expected length of stay will include at least two midnights. Current treatment plan includes Initiation of high risk medication Sotalol requiring continuous cardiac monitoring and serial ECGs for 5 doses at BID dosing due to risk of SCD/TdP with prolonged QT/QTc. Plans for post hospitalization care will be discharge to home. [facility] 09-08-2022 Hospital Discharg e instructions HOLDEN Ren - 09/08/2022 1:08 PM EDT Lifestyle and risk factor management are recommended to prevent from recurrent atrial fibrillation including: - Decrease weight. [place] BMI is <30 kg/M2. In the Legacy Study of atrial fibrillation, weight loss of >10% resulted in a 6-fold greater arrhythmia-free survival - Weight fluctuation of >5%, offsets the benefits as it increases risk for atrial fibrillation recurrence by 2-fold. - Regular moderate intensity exercise of 150 minutes per week. - Avoid high intensity exercise since it will increase the risk of atrial fibrillation [higher risk of atrial fibrillation in cyclist, cross-country running, [place]] - Abstain/decrease alcohol as to no more than 2 drinks per week. - Decrease caffeine to no more than 1 cup per day and make sure it is before noon. - Eliminate soft drinks altogether. - Make sure to get 6-8 hours of sleep each night and go to bed at the same time each night within +/- 1 hour. HOLDEN Ren - 09/07/2022 9:59 AM EDT Post Ablation Activity Your activity is restricted only as indicated by your physician. Please refer to education for ablation and other care recommendations. - No driving for 24 hours - Keep incision dry - Limit bending at the waist for 48 hours - May resume regular activity in 1-2 weeks unless otherwise notified - Return to work in 1 week - No tub baths or hot tub for 2 weeks or until groin site is healed - No lifting greater than 10-15 pounds for 1 week. Rest for 24 hours after you are home. You should have someone with you to help you the first night you are home. DO NOT drive for 24 hours. DO NOT make any important decisions for 24 hours. DO NOT work around the stove, machinery or power equipment for 24 hours. EN Wood - 09/07/2022 9:59 AM EDT Diet: Your doctor has recommended that you follow these diet instructions at home. Refer to the patient education materials you received during your hospital stay. If you would like more nutrition counseling, ask your doctor about making an appointment with an outpatient dietitian. Heart Healthy Diet to promote heart health. Choose healthy fats and oils such as canola or olive oil. Limit high cholesterol foods. Avoid added salt and caffeine in your foods. Controlled Carbohydrate Diet This diet controls carbohydrate intake to help manage and maintain consistent blood glucose levels. Simple sugars are limited and carbohydrate intake is balanced throughout the day. Avoid adding salt to your food and use heart healthy fats such as canola or olive oil. EN Wood - 09/07/2022 10:00 AM EDT Images from the original note were not included. NOTIFY PHYSICIAN BLEEDING/BRUISING -If severe bleeding, apply pressure -Increased bleeding from site -Increased bruising or hematoma Chest pain or shortness of breath Respiratory Changes Call your doctor or nurse if you have shortness of breath that gets worse -Cough that gets worse -Coughing up blood Stroke Symptoms Call 911 if you suddenly have any of these signs of a stroke: -Numbness or muscle weakness -Trouble swallowing -Problems talking -Dizziness or feeling unsteady -Severe headache -Confusion SYMPTOMS OF DVT DVT = Deep Vein Thrombus, or Blood Clot -any tender, swollen, or reddened areas from your groin to your heels. -numbness or tingling in groin or calf -the skin on your leg looks pale or blue or it feels cold to touch -any shortness of breath -chest pain -fever or chills NAUSEA: When you are nauseated, you may feel weak and sweaty and notice a lot of saliva in your mouth. Nausea often leads to vomiting. Most of the time you do not need to worry about nausea and vomiting, but they can be signs of other illnesses. The doctor has checked you carefully, but problems can develop later. If you notice any problems or new symptoms, get medical treatment right away. Follow-up care is a jamison part of your treatment and safety. Be sure to make and go to all appointments, and call your doctor if you are having problems. It's also a good idea to know your test results and keep a list of the medicines you take. How can you care for yourself at home? To prevent dehydration, drink plenty of fluids, enough so that your urine is light yellow or clear like water. Choose water and other caffeine-free clear liquids until you feel better. If you have kidney, heart, or liver disease and have to limit fluids, talk with your doctor before you increase the amount of fluids you drink. Rest in bed until you feel better. When you are able to eat, try clear soups, mild foods, and liquids until all symptoms are gone for 12 to 48 hours. Other good choices include dry toast, crackers, cooked cereal, and gelatin dessert, such as Jell-O. When should you call for help? Call 911 anytime you think you may need emergency care. For example, call if: You passed out (lost consciousness) Call your doctor now or seek immediate medical care if: You have symptoms of dehydration, such as: Dry eyes and a dry mouth Passing only a little dark urine Feeling thirstier than usual You have new or worsening belly pain You have a new or higher fever You vomit blood or what looks like coffee grounds Watch closely for changes in your health, and be sure to contact your doctor if: You have on going nausea and vomiting Your vomiting gets worse Your vomiting last longer than 2 days You are not getting better as expected Where can you learn more? Go to [email or web address].net/osumy chart. HOLDEN Ren - 09/07/2022 10:00 AM EDT Catheter site care You can remove your bandages the day after the procedure. You may shower 24 to 48 hours after the procedure, if your doctor okays it. Pat the incision dry. Do not soak the catheter site until it is healed. Don't take a bath for 1 week, or until your doctor tells you it is okay. Watch for bleeding from the site. A small amount of blood (up to the size of a quarter) on the bandage can be normal. If you are bleeding, lie down and press on the area for 15 minutes to try to make it stop. If the bleeding does not stop, call your doctor or seek immediate medical care. documented in this encounter [facility] 09-08-2022 Evaluation + Plan note Associated Problem(s): Morbid obesity BMI 53.43 Heart healthy carb controlled diet Encourage ambulation Lifestyle and risk factor management are recommended to prevent from recurrent atrial fibrillation including: - Decrease weight. [place] BMI is <30 kg/M2. In the Legacy Study of atrial fibrillation, weight loss of >10% resulted in a 6-fold greater arrhythmia-free survival - Weight fluctuation of >5%, offsets the benefits as it increases risk for atrial fibrillation recurrence by 2-fold. - Regular moderate intensity exercise of 150 minutes per week. - Avoid high intensity exercise since it will increase the risk of atrial fibrillation [higher risk of atrial fibrillation in cyclist, cross-country running, [place]] - Abstain/decrease alcohol as to no more than 2 drinks per week. - Decrease caffeine to no more than 1 cup per day and make sure it is before noon. - Eliminate soft drinks altogether. - Make sure to get 6-8 hours of sleep each night and go to bed at the same time each night within +/- 1 hour. [facility] 09-08-2022 Evaluation + Plan note Associated Problem(s): High risk medication use Sotalol initiation Continuous cardiac monitoring for 5 doses at BID dosing Serial ECGs for QT/QTc measurement 2-3 hours after each dose Daily chem 7 and Mg; Keep K+>4 and Mg>2. Replace per protocol Estimated Creatinine Clearance: 174 mL/min (by C-G formula based on SCr of 0.93 mg/dL). Enroll in [facility] clinic Follow up with Dr. Moya in 3-4 months [facility] 09-08-2022 Evaluation + Plan note Associated Problem(s): Longstanding persistent atrial fibrillation Symptomatic; recurrent AF/AFl 1 week post cardioversion 02/2022 S/p PVI WACA and CTI RFA on 09/07/22 CHADS-VASc score=5 on Eliquis 5 mg BID QT/QTc prolonging after 3rd dose Decrease Sotalol 80 mg Q12hr and monitor for 2 more doses Remains in NSR w/1st deg AVB [facility] 09-08-2022 Note Formatting of this n ote might be different from the original. Problem: Patient Care Overview Goal: Plan of Care Review Outcome: Ongoing Goal: Individualization & Mutuality Outcome: Ongoing Goal: Discharge Needs Assessment Outcome: Ongoing Goal: Interdisciplinary Rounds/Family Conf Outcome: Ongoing [facility] 09-07-2022 History and physical note Chief Complaint HPI Sohail Israel is a 56 y.o. male with persistent AF, ATrial flutter, DM type II, HTN, polycythemia, TONYA, morbid obesity possible thromboembolic event/retinal artery occlusion. He was first diagnosed with atrial fibrillation about 2 years ago when he presented with fatigue and dyspnea. He underwent cardioversion on 03/11/22 however had recurrent AF 1 week later documented on EKG. He remains fatigued and dyspneic. No prior AAD therapy or ablations. His EF is normal and normal nuclear stress test in 2020. He likely has longstanding persistent atrial fibrillation. Referred to Dr. Moya with recommendations to pursue AF RFA and CTI RFA which he presents for today. CHADS-VASc score= 5 On Eliquis without adverse bleeding. Patient Active Problem List Diagnosis Longstanding persistent atrial fibrillation Past Medical History: Diagnosis Date Diabetes mellitus Essential hypertension, benign No past surgical history on file. Medications Prior to Admission Medication Sig Dispense Refill Last Dose Allopurinol 100 MG tablet Take 1 tablet by mouth daily. 09/07/2022 apixaban 5 MG tablet Take 1 tablet by mouth 2 times daily. 09/06/2022 carveDILOL 12.5 MG tablet Take 1 tablet by mouth 2 times daily. 09/07/2022 Cinnamon 500 MG capsule Take 2 capsules by mouth daily. 09/07/2022 Empagliflozin 25 MG tablet Take 1 tablet by mouth daily. 09/06/2022 insulin detemir (Levemir FlexPen) 100 UNIT/ML Solution Pen-injector injection Inject 47 Units under the skin at bedtime. 09/06/2022 Vascepa 1 g capsule Take 2 capsules by mouth 2 times daily. 09/07/2022 amLODIPine 10 MG tablet Take 1 tablet by mouth daily. 09/07/2022 metFORMIN 1000 MG tablet Take 1 tablet by mouth 2 times daily. 09/06/2022 Rosuvastatin 10 MG tablet Take 1 tablet by mouth daily. 09/07/2022 No Known Allergies Social History Socioeconomic History Marital status: No family history on file. Referring MD: Molina PCP Harry NARAYAN MD: Kenyon Moya Anticoagulation: Eliquis Has the patient missed any doses of anticoagulation: When was the last dose taken. 09/06/22 in AM [id number]- Vasc score: 5 ( HTN, DM, CVA2 ) Previous antiarrythmic medications: none Prior Cardiac testing: CT pulmonary vein (pending) Review of System Constitutional: Negative for fever, weight loss, weight gain and malaise/fatigue. Skin: Negative. HEENT: Negative. Cardiovascular: Negative for leg swelling. Negative for palpitations, chest pain, dyspnea, orthopnea, claudication, edema and PND. Negative for lightheadedness or syncope. Respiratory: Negative for cough. Is not experiencing shortness of breath currently. Gastrointestinal: Negative for abdominal pain, nausea, vomiting, diarrhea, melena, and constipation. Endocrine: Negative for polyuria, polydipsia, heat or cold intolerance. Genitourinary: Negative for frequency or burning with urination. Neurological: Negative for dizziness and headaches. Psychiatric: Negative for depression, nervous/anxious and substance abuse. Telemetry/EKG: atrial fibrillation BP (!) 173/92 Pulse 106 Temp 98.3 F (36.8 C) (Oral) Resp 22 Ht 1.956 m (6' 5 ) Wt (!) 206.4 kg (455 lb) SpO2 97% BMI 53.96 kg/m Body mass index is 53.96 kg/m . Physical Exam General appearance - alert, LOC x 3, well appearing, and in no distress Neck - supple, no significant adenopathy, carotids upstroke normal bilaterally without bruits. Chest - lungs clear to auscultation Heart - irregularly irregular, no murmurs, clicks, gallops or rubs, normal bilateral carotid upstroke without bruits, no JVD Abdomen - soft, nontender, nondistended, no masses or organomegaly, bowel sounds present x 4 quadrants. Extremities - peripheral pulses normal, no pedal edema, no clubbing or cyanosis Skin - normal coloration and turgor, no rashes, no suspicious skin lesions noted Lab Results Component Value Date CREATSERUM 1.01 09/07/2022 Lab Results Component Value Date WBC 7.88 09/07/2022 HGB 17.9 (H) 09/07/2022 HCT 51.0 (H) 09/07/2022 PLATELET 203 09/07/2022 MCV 85.7 09/07/2022 No results found for: INR Assessment and Plan 1. Longstanding persistent AF- proceed with AF RFA and CTI RFA with anesthesia. (Labs pending) Associated attestation - Kenyon Moya MD - 09/08/2022 1:18 PM EDT Discussed procedure with pt and re-addressed risk/benefits. Pt is ready to proceed. Consent signed A and O x 3 Skin W and Dry Proceed with planned procedure [facility] 09-07-2022 History and physical note Chief Complaint HPI Sohail Israel is a 56 y.o. male with persistent AF, ATrial flutter, DM type II, HTN, polycythemia, TONYA, morbid obesity possible thromboembolic event/retinal artery occlusion. He was first diagnosed with atrial fibrillation about 2 years ago when he presented with fatigue and dyspnea. He underwent cardioversion on 03/11/22 however had recurrent AF 1 week later documented on EKG. He remains fatigued and dyspneic. No prior AAD therapy or ablations. His EF is normal and normal nuclear stress test in 2020. He likely has longstanding persistent atrial fibrillation. Referred to Dr. Moya with recommendations to pursue AF RFA and CTI RFA which he presents for today. CHADS-VASc score= 5 On Eliquis without adverse bleeding. Patient Active Problem List Diagnosis Longstanding persistent atrial fibrillation Past Medical History: Diagnosis Date Diabetes mellitus Essential hypertension, benign No past surgical history on file. Medications Prior to Admission Medication Sig Dispense Refill Last Dose Allopurinol 100 MG tablet Take 1 tablet by mouth daily. 09/07/2022 apixaban 5 MG tablet Take 1 tablet by mouth 2 times daily. 09/06/2022 carveDILOL 12.5 MG tablet Take 1 tablet by mouth 2 times daily. 09/07/2022 Cinnamon 500 MG capsule Take 2 capsules by mouth daily. 09/07/2022 Empagliflozin 25 MG tablet Take 1 tablet by mouth daily. 09/06/2022 insulin detemir (Levemir FlexPen) 100 UNIT/ML Solution Pen-injector injection Inject 47 Units under the skin at bedtime. 09/06/2022 Vascepa 1 g capsule Take 2 capsules by mouth 2 times daily. 09/07/2022 amLODIPine 10 MG tablet Take 1 tablet by mouth daily. 09/07/2022 metFORMIN 1000 MG tablet Take 1 tablet by mouth 2 times daily. 09/06/2022 Rosuvastatin 10 MG tablet Take 1 tablet by mouth daily. 09/07/2022 No Known Allergies Social History Socioeconomic History Marital status: No family history on file. Referring MD: Molina PCP Harry NARAYAN MD: Kenyon Moya Anticoagulation: Eliquis Has the patient missed any doses of anticoagulation: When was the last dose taken. 09/06/22 in AM [id number]- Vasc score: 5 ( HTN, DM, CVA2 ) Previous antiarrythmic medications: none Prior Cardiac testing: CT pulmonary vein (pending) Review of System Constitutional: Negative for fever, weight loss, weight gain and malaise/fatigue. Skin: Negative. HEENT: Negative. Cardiovascular: Negative for leg swelling. Negative for palpitations, chest pain, dyspnea, orthopnea, claudication, edema and PND. Negative for lightheadedness or syncope. Respiratory: Negative for cough. Is not experiencing shortness of breath currently. Gastrointestinal: Negative for abdominal pain, nausea, vomiting, diarrhea, melena, and constipation. Endocrine: Negative for polyuria, polydipsia, heat or cold intolerance. Genitourinary: Negative for frequency or burning with urination. Neurological: Negative for dizziness and headaches. Psychiatric: Negative for depression, nervous/anxious and substance abuse. Telemetry/EKG: atrial fibrillation BP (!) 173/92 Pulse 106 Temp 98.3 F (36.8 C) (Oral) Resp 22 Ht 1.956 m (6' 5 ) Wt (!) 206.4 kg (455 lb) SpO2 97% BMI 53.96 kg/m Body mass index is 53.96 kg/m . Physical Exam General appearance - alert, LOC x 3, well appearing, and in no distress Neck - supple, no significant adenopathy, carotids upstroke normal bilaterally without bruits. Chest - lungs clear to auscultation Heart - irregularly irregular, no murmurs, clicks, gallops or rubs, normal bilateral carotid upstroke without bruits, no JVD Abdomen - soft, nontender, nondistended, no masses or organomegaly, bowel sounds present x 4 quadrants. Extremities - peripheral pulses normal, no pedal edema, no clubbing or cyanosis Skin - normal coloration and turgor, no rashes, no suspicious skin lesions noted Lab Results Component Value Date CREATSERUM 1.01 09/07/2022 Lab Results Component Value Date WBC 7.88 09/07/2022 HGB 17.9 (H) 09/07/2022 HCT 51.0 (H) 09/07/2022 PLATELET 203 09/07/2022 MCV 85.7 09/07/2022 No results found for: INR Assessment and Plan 1. Longstanding persistent AF- proceed with AF RFA and CTI RFA with anesthesia. (Labs pending) Associated attestation - Kenyon Moya MD - 09/08/2022 1:18 PM EDT Discussed procedure with pt and re-addressed risk/benefits. Pt is ready to proceed. Consent signed A and O x 3 Skin W and Dry Proceed with planned procedure documented in this encounter [facility] 01-03-2022 History and physical note UPDATED PROCEDURAL SEDATION HISTORY AND PHYSICAL EXAMINATION SERVICE DATE: 01/03/2022 SERVICE TIME: 8:01 AM PHYSICAL EXAM MUST BE COMPLETED ON ADMISSION PROCEDURE: Procedure Indications: The History and Physical (completed in the past 30 days) has been reviewed and the patient has been examined. The contents accurately reflect the patient's condition with the following additions or revisions since the H&P was completed. ASA Class: ASA Class:: Patient with severe systemic disease Examination indicates no changes. AIRWAY: Airway Visualization of Uvula: Yes Mouth opening greater than 2 fingerbreadths: Yes Neck Full Range of Motion: Yes LUNGS: Lungs clear to auscultation CARDIAC: Regular rhythm,Regular rate Provisional Diagnosis/Treatment Plan: personal history of colon polyps - colonoscopy SEDATION GOAL: Moderate This H&P can be found in the attached. SIGNATURE: Anjel Avilez MD PATIENT NAME: Sohail Israel DATE: January 03, 2022 TIME: 8:01 AM Images from the original note were not included. HISTORY AND PHYSICAL Sohail Israel 1965 REFERRING PHYSICIAN: Self CHIEF COMPLAINT: Consult (Colonoscopy) HPI: The patient is a 55 year old male referred for endoscopy. Sohail notes a history of colon polyps. Patient denies any change in bowel habits, weight changes, blood in stools, black tarry stools or abdominal pain. The patient notes no upper GI complaints. Sohail has undergone prior endoscopy. Most recent colonoscopy 04/30/[address] Muir, records reviewed. That procedure was performed under Monitored Anesthetic Care. Patient had two polyps removed which returned as tubular adenoma and tubulovillous adenoma. He notes he experienced a post-polypectomy bleed for which he had follow-up colonoscopy which showed no obvious source of bleeding, but this resolved. Patient notes he had Suprep for prior colonoscopy and tolerated this well. Denies history of kidney issues. Patient's past medical history is significant for hypertension, type II diabetes mellitus, obesity, atrial fibrillation. Patient follows with Dr. Auguste in cardiology. PAST MEDICAL HISTORY PAST MEDICAL HISTORY Diagnosis Date Hypertension Type II or unspecified type diabetes mellitus without mention of complication, not stated as uncontrolled PAST SURGICAL HISTORY PAST SURGICAL HISTORY Procedure Laterality Date PAST SURGICAL HISTORY OF 2005 Removal of infectious mass Rt groin CURRENT MEDICATIONS Current Outpatient Medications Medication Sig amLODIPine (NORVASC) 10 mg tablet Take 10 mg by mouth once daily. apixaban (ELIQUIS) 5 mg tab(s) carvedilol (COREG) 25 mg tablet Cinnamon Bark (CINNAMON) 500 mg cap empagliflozin (JARDIANCE) 25 mg tablet icosapent ethyl (VASCEPA) 1 gram capsule insulin detemir (LEVEMIR FLEXTOUCH U-100 INSULN SUBCUTANEOUS) icosapent ethyl (VASCEPA) 1 gram capsule Take 2 g by mouth twice daily with meals. metFORMIN 500 mg tablet Take 1,000 mg by mouth twice daily with meals. lisinopril 20 mg tablet Take 20 mg by mouth once daily. Lfgiv-[id number]-Fish Oil 1,200 (144-216) mg cap Take by mouth twice daily. Multivitamin capsule Take 1 capsule by mouth once daily. No current facility-administered medications for this visit. ALLERGIES: Patient has no known allergies. PERSONAL HISTORY: SOCIAL HISTORY Social History Tobacco Use Smoking status: Never Smoker Smokeless tobacco: Not on file Substance Use Topics Alcohol use: Not on file Drug use: Not on file FAMILY HISTORY: FAMILY HISTORY FAMILY HISTORY Problem Relation Age of Onset Diabetes Father Heart Father Diabetes Paternal Grandfather REVIEW OF SYMPTOMS: The review of systems data was entered by the nurse and reviewed by ga Nursing Notes: Stephanie Slater 08/30/2021 8:40 AM Signed REVIEW OF SYSTEMS: General: The patient denies fatigue, denies weight loss, denies weight gain, denies feeling hot, and denies feelings of cold. Eyes: The patient denies glaucoma, denies eye injury/surgery, does not wear glasses or contacts. Ear/Nose/Throat: The patient denies allergies, denies hayfever, denies ear infections, and denies bloody noses. Cardiovascular: The patient denies chest pain, denies heart disease, NOTES Afib.NOTES high blood pressure,denies cardiac stent, denies prior heart attack, denies irregular heart beat, NOTES high cholesterol, denies poor circulation, denies heart failure, other cardiac issues, denies claudication, denies cold feet, denies peripheral arterial stent. Respiratory: The patient denies tuberculosis, denies pneumonia, denies frequent cough, denies pulmonary embolism, denies shortness of breath, and denies coughing up blood. Gastrointestinal: The patient denies difficulty swallowing, denies acid reflux, denies ulcers, denies vomiting, denies jaundice/hepatitis, denies gallbladder problems, denies black or tarry stools, denies hemorrhoids, denies bleeding from rectum, denies diverticulitis, denies constipation, denies diarrhea, denies loss of stool control, and denies hernias. Kidney/Bladder: The patient denies kidney stones, denies urine infections, and denies bloody urine. Skin: The patient denies a history of skin cancer, denies bleeding/changing moles, and denies a history of skin rash. Neurologic: The patient denies a history of epilepsy/convulsions, denies headaches, denies head/spinal injuries, and denies stroke/TIA. Psychiatric: The patient denies psychiatric medications, denies depression, and denies voices, denies substance abuse. Endocrine: The patient denies thyroid disorders, NOTES diabetes, and denies hormonal problems. Hematologic: The patient denies a history of bruising, denies bleeding, and denies anemia, denies blood clots. Infections: The patient denies a history of measles and mumps, denies rheumatic fever, and denies sexually transmitted diseases. Musculoskeletal: The patient denies back pain/injury, denies back problems, denies sciatica, NOTES knee/foot trouble, denies arthritis, or NOTES gout. When was patient's last Mammogram screening? N/A Last Colonoscopy: 2019 Stephanie Slater I have confirmed and edited as necessary, the PFSH and ROS obtained by others. Lynda Venegas PA-C PHYSICAL EXAMINATION: General: The patient is 55 year old male, well nourished, well hydrated in no acute distress. The patient is oriented to time, place, and person. VITALS: Blood pressure 156/93, pulse 104, temperature 36.7 C (98 F), height 195.6 cm (6' 5 ), weight (!) 194.6 kg (429 lb), SpO2 96 %. Body mass index is 50.87 kg/m . HEENT: Normal cephalic, ataumatic, pupils are equally round, sclera are anicteric, mucous membranes are moist, oropharynx is clear. Neck has no masses, asymmetry or lymphadenopathy. Respiratory: Clear to auscultation and percussion. Normal respiratory excursion and pattern. Cardiac: Examination is regular rate and rhythm. Normal S1/S2 Abdominal exam: Soft, nontender, with no palpable masses. No hepatosplenomegaly. No palpable hernias. Extremities: no clubbing, cyanosis or edema. No adenopathy. LABORATORY VALUES: As Noted RADIOLOGIC STUDIES: As Noted Assessment IMPRESSION: encounter for surveillance colonoscopy, personal history of polyps PLAN: I have reviewed my findings with the surgeon. Will plan for lower endoscopy. We discussed the risks and benefits of the planned endoscopy. I have informed the patient that complications can occur including failure to complete the endoscopy and perforation. The patient had the opportunity to ask questions concerning the planned endoscopy. My staff has also explained the procedure to the patient in understandable terms and has given the patient printed material concerning the procedure. The patient freely consents to surgery. The patient was offered a surgery/procedure at a [facility] facility. I have counseled the patient regarding the risk of exposure to and/or potential harm posed by the COVID-19 virus with having a surgery/procedure at this time versus the risk of delaying the surgery/procedure. It is not possible to know either the risk of delaying the surgery or procedure or chance of getting an infection with perfect accuracy, but a joint decision was made between the patient and myself to proceed at this time with endoscopy. I plan to use Suprep bowel preparation-patient used this previously and states tolerated well, was covered by insurance. Reviewed importance of excellent hydration with bowel prep Patient instructed to contact PCP for instructions regarding diabetic medication, which may require adjustment during bowel preparation and/or day of procedure Patient to remain on his anticoagulation per Dr. Avilez The patient has medical comorbidities for which we will plan for the procedure to be performed under Monitored Anesthetic Care. Diagnoses: (Z12.11, Z86.010) Encounter for colonoscopy due to history of colonic polyp (primary encounter diagnosis) I spent a total of 37 minutes on the date of the service which included preparing to see the patient, [id number] patient care, completing clinical documentation, obtaining and/or reviewing separately obtained history, performing a medically appropriate examination, counseling and educating the patient/family/caregiver, ordering medications, tests, or procedures and communicating with other HCPs (not separately reported). Lynda Venegas PA-C documented in this encounter [facility] 12-21-2021 Miscellaneous Notes Received outside records. Sent to operations [facility], [place] scanned. Felicita Kenyon LPN Sent fax request for patients most recent HgbA1c to [facility] Medical Records [phone]. Elisa Knox LPN documented in this encounter [facility] 12-20-2021 Instructions Alma Jackson APRN.PROFILE GRINDER TECHNICIAN - 12/20/2021 3:50 PM EDT PATIENT PREOPERATIVE INSTRUCTIONS Anjel Avilez MD has scheduled you for your procedure at this surgery center: [facility]: [phone] -- [address] [address]. Please read below carefully for your personalized instructions. Dietary Restrictions: - Follow bowel prep instructions: clear liquids need to be stopped 2 hours prior to schedule arrival at facility Medications: Unless instructed differently below, stay on all of your medications until your surgery. Approved medications to take the morning of surgery with a sip of water: Amlodipine, Carvedilol, Rosuvastatin, Eliquis - No diabetic medication the morning of surgery. - Accucheck day of surgery. - Take half dose of long acting insulin (Lantus, NPH) the day of surgery. - If you take Invokana, Farxiga or Jardiance, hold 3 day pre-op If you take any medications for erectile dysfunction-Cialis (Tadalafil), Levitra, Staxyn (Vardenafil) Viagra (Sildenenafil please do not take these for 48 hours before surgery. If you start any new medications after today's visit, please contact the surgeon's office. Blood Thinning Medications: - Stop NSAIDS (Ibuprofen, Advil, Aleve, Motrin, Celebrex, Mobic, etc.) 7 days before surgery, as directed by your surgeon. - Stop Vitamin E, ALL multi-vitamins, herbals and dietary supplements 7 days before surgery. - You may take Tylenol (Acetaminophen) or any of your pain medications that do not contain aspirin or NSAIDS as needed. Important Reminders: - If you use CPAP/BIPAP, bring the machine with you to the surgery center. - If you are prescribed inhalers for breathing, continue using them. - Candy, mints, and tobacco products are NOT permitted the morning of surgery. - Hearing aids, dentures and glasses may be worn the morning of surgery. - NO jewelry, body piercings, makeup, hairpins or contacts are to be worn the day of surgery. If you develop symptoms such as a fever, cold, or flu, or have other changes to your health within TWO DAYS of scheduled surgery or the morning of surgery, please contact the surgery center above. Personal Belongings: -Please have photo ID and insurance cards. -If you do not have a copy of advance directives on file with us, please bring a copy with you on the day of surgery. - Leave ALL valuables and money at home or with family members. For Outpatient Procedures: - YOU MUST HAVE A RESPONSIBLE SYRUP MAKER COOK TAKE YOU HOME. A RN INTERNAL MEDICINE OR SPEEDER OPERATOR CANNOT BE MADE A RESPONSIBLE SYRUP MAKER COOK. - We recommend that a responsible person stays with you overnight to take care of you. - You cannot stay in a hotel alone after outpatient surgery. You will not be permitted to have your surgery, if you do not have someone to take care of you. Arrival Time for Surgery: - The Surgery Center or hospital where you are having surgery will call the afternoon before surgery (or Monday for Monday surgery) with a scheduled arrival time. - If you have not heard by 4 pm, please contact the surgery center above. Please be aware that emergency situations arise, which may delay or change your surgical time. If this happens, we will notify you as soon as possible and regret any inconvenience. If you already have an Advance Directive, please fax a copy to [phone] or email to for it to be added to your chart. If you do not have an Advance Directive, you can find the appropriate form and more information at [email or web address]. We recommend that you complete the Advance Directive form found on the website and bring it with you the day of your surgery. It can be witnessed and scanned into your chart that day. Alma Jackson APRN.RAKESH documented in this encounter [facility] 12-20-2021 History and physical note HISTORY AND PHYSICAL EXAMINATION SERVICE DATE: 12/20/2021 SERVICE TIME: 3:48 PM PRIMARY CARE PHYSICIAN: Harry Kelly MD REASON FOR VISIT: Sohail Israel is a 56 year old male who is scheduled for colonscopy at the request of Dr. Anjel Avilez for consultation. My final recommendation will be communicated back to the requesting physician by way of shared medical record or letter. Subjective The patient has the following: ACTIVE PROBLEM LIST A-Fib (Hcc) Diabetic Foot Ulcer (Hcc) Hyperlipidemia Hypertension Associated With Type 2 Diabetes Mellitus (Hcc) Morbid Obesity (Hcc) Type 2 Diabetes Mellitus With Neurologic Complication, With Long-Term Current Use of Insulin (Hcc) Tonya (Obstructive Sleep Apnea) History of Colonic Polyps COVID-19 Immunization Status Overdue - COVID-19 VACCINE (1) Overdue - never done No completion, postpone, frequency change, or communication history exists for this topic. CHIEF COMPLAINT: Pre-op exam HPI: BE is a 56 yo seen for PAC due to scheduled above surgery because h/o colon polyps. 08/30/2021 Lynda Venegas PA-C The patient is a 55 year old male referred for endoscopy. Sohail notes a history of colon polyps. Patient denies any change in bowel habits, weight changes, blood in stools, black tarry stools or abdominal pain. The patient notes no upper GI complaints. Sohail has undergone prior endoscopy. Most recent colonoscopy 04/30/[address] Muir, records reviewed. That procedure was performed under Monitored Anesthetic Care. Patient had two polyps removed which returned as tubular adenoma and tubulovillous adenoma. He notes he experienced a post-polypectomy bleed for which he had follow-up colonoscopy which showed no obvious source of bleeding, but this resolved. Patient notes he had Suprep for prior colonoscopy and tolerated this well. Denies history of kidney issues. Patient's past medical history is significant for hypertension, type II diabetes mellitus, obesity, atrial fibrillation. Patient follows with Dr. Auguste in cardiology. REVIEW OF SYSTEMS: General: No weight loss, malaise or fevers. Neurological: Positive for: peripheral neuropathy (no rx). Respiratory: Positive for: obstructive sleep apnea and CPAP/BiPAP compliant. Negative for: asthma, COPD, pneumonia within 6 weeks, tobacco use and URI < 2 weeks. Cardiovascular: Positive for: anticoagulation therapy (Eliquis), atrial fibrillation (following [facility] Dr. Auguste), hyperlipidemia (on rx) and hypertension (on rx) Negative for: arrhythmia, CAD, chest pain, CHF, congenital heart defect, DVT/PE, recent MN, murmur/valvular heart disease, open heart surgery and valve surgery. GI: See HPI. Positive for: history of polyps Negative for: abdominal pain, colon cancer, dysphagia, diverticulitis, GERD, heartburn, hepatitis, irritable bowel syndrome, inflammatory bowel disease, liver disease, nausea, pancreatitis, vomiting and ETOH >2 drinks/day. : Positive for: nephrolithiasis (remote hx). Negative for: BPH, urinary incontinence, renal failure and urinary tract infection. Endocrine: Positive for: diabetes mellitus. Patient's diabetes mellitus is controlled by insulin and oral agents. Negative for: hypothyroidism. Hematology: Positive for: chronic anti-coagulation/platelet meds. Patient is on anti-coagulation/platelet medication(s): DOAC. Negative for: anemia, bruises/bleeds easily and transfusion of at least 4 units within 72 hours prior to surgery. Oncology: No history of CA metastasis, chemo within 30 days, or radiotherapy within 90 days. No history of oncological symptoms or problems. Psych: No history of psychiatric symptoms or problems. Musculoskeletal: Negative for joint pain or swelling, back pain or muscle pain. Skin: Negative for lesions, rash and itching. PAST MEDICAL HISTORY Diagnosis Date Gout High cholesterol Hypertension Neuropathy Type II or unspecified type diabetes mellitus without mention of complication, not stated as uncontrolled PAST SURGICAL HISTORY Procedure Laterality Date COLONOSCOPY SCREENING FOOT SURGERY HX PAST SURGICAL HISTORY OF 06/12/2005 Removal of infectious mass Rt groin FAMILY HISTORY Problem Relation Age of Onset Diabetes Father Heart Father Heart Paternal Grandfather Diabetes Paternal Grandfather Social History Tobacco Use Smoking status: Never Smoker Smokeless tobacco: Never Used Vaping Use Vaping Use: Never used Substance Use Topics Alcohol use: Never Drug use: Never Prior to Admission medications as of 12/20/21 1538 Medication Sig Last Dose Taking rosuvastatin (CRESTOR) 10 mg tablet Take 10 mg by mouth once daily. Taking Yes allopurinol (ZYLOPRIM) 100 mg tablet Take 100 mg by mouth once daily. Taking Yes amLODIPine (NORVASC) 10 mg tablet Take 10 mg by mouth once daily. Taking Yes apixaban (ELIQUIS) 5 mg tab(s) Taking Yes carvedilol (COREG) 25 mg tablet Taking Yes Cinnamon Bark (CINNAMON) 500 mg cap Taking Yes empagliflozin (JARDIANCE) 25 mg tablet Taking Yes insulin detemir (LEVEMIR FLEXTOUCH U-100 INSULN SUBCUTANEOUS) Taking Yes icosapent ethyl (VASCEPA) 1 gram capsule Take 2 g by mouth twice daily with meals. Taking Yes sodium sulfate-potassium sulfate-magnesium sulfate (SUPREP BOWEL PREP KIT) 17.5-3.13-1.6 gram oral liquid Take according to instructions given with bowel prep kit Taking Yes metFORMIN 500 mg tablet Take 1,000 mg by mouth twice daily with meals. Taking Yes icosapent ethyl (VASCEPA) 1 gram capsule Not Taking No medication comments found. ALLERGIES No Known Allergies Objective PHYSICAL EXAM: General: alert and oriented (x3), healthy appearance and morbidly obese. Pertinent negatives noted - not distressed. Skin: normal color, no rash or lesions. HEENT: EOM intact and pupils equal round. Pertinent negatives noted - no carotid bruit. Cardiovascular: regular rate and rhythm, normal S1 and S2, no rub, murmurs, or gallop. Respiratory: normal breath sounds, no wheezes or crackles. No chest wall deformity or tenderness. Abdomen: soft. Pertinent negatives noted - not tender. Extremities: no deformity, no edema or tenderness, no joint swelling or clubbing. Neurological: normal cognition and motor skills. Gait normal. No weakness or sensory deficit. PAIN ASSESSMENT: VITALS: BP 160/82 Pulse 96 Temp (Src) 98.2 (Temporal) Resp 18 Ht 6' 5 (1.96m) Wt 442 lb (200.5kg) SpO2 94% BMI 52.40 kg/(m^2). Diagnostic tests reviewed for today's visit: Lab Value Units Date High Low HB No results within date range. HCT No results within date range. WBC No results within date range. PLT No results within date range. NA No results within date range. K No results within date range. GLUC No results within date range. BUN No results within date range. CREAT No results within date range. PTSEC No results within date range. INR No results within date range. APTT No results within date range. ALT No results within date range. AST No results within date range. TBILI No results within date range. TSH No results within date range. Lab Value Units Date High Low HCGQT No results within date range. UHCG No results within date range. HCG, BODY* No results within date range. Lab Value Units Date High Low ABORHD No results within date range. ABSCREEN No results within date range. No results found for: HBA1C No results found for this or any previous visit (from the past 8760 hour(s)). No results found for this or any previous visit (from the past 60513 hour(s)). Assessment A-fib (HCC) Assessment: rate controlled, daily Eliquis, following [facility] Dr. Auguste, received clearance scanned into [employer]. Per Dr. Avilez's office preference no need to hold Eliquis for upcoming procedure Hyperlipidemia Assessment: on rx Hypertension associated with type 2 diabetes mellitus (HCC) Assessment: controlled on rx Last 14 BP Last 14 Encounter BP Readings: Date: BP: 12/20/2021 160/82 08/30/2021 156/93 07/31/2012 110/88 Diabetic foot ulcer (HCC) Assessment: chronic, healing Type 2 diabetes mellitus with neurologic complication, with long-term current use of insulin (HCC) Assessment: controlled with oral agents and insulin Last A1c requested from [facility] Morbid obesity (HCC) Assessment: Body mass index is 52.41 kg/m . TONYA (obstructive sleep apnea) Assessment: c/w bipap Farooq Activity Status Index: METS: Walk indoors, such as around the house (1.75 METs) Do light work around the house, such as dusting or washing dishes (2.70 METs) Take care of self; that is eating, dressing, bathing, using the toilet (2.75 METs) Walk a block or two on level ground (2.75 METs) DASI Score: 9.95 Patient denies any chest pain or undue shortness of breath with the above physical activity. Clinical Frailty Scale: 4. Apparently vulnerable STOP-Bang Score: Snores loudly Has been observed to stop breathing or choking/gasping during sleep Has or is being treated for high blood pressure BMI greater than 35 kg/m^2 Patient over 50 years old Has a large neck Male patient Denies feeling tired, fatigued, or sleepy during the daytime STOP-Bang Score: 7 [id number] Score: Age: <65 Sex: male CHF history: No Hypertension history: Yes Stroke/TIA/thromboembolism history: No Vascular disease history: No Diabetes history: Yes [id number] Score: 2 ARISCAT Score: Age: 51-80 Preoperative SpO2: >=96% Respiratory infection in the last month: No Preoperative anemia: No Surgical incision: peripheral Duration of surgery: <2 hrs Emergency procedure: No ARISCAT Score: 3 ASA Class: 3 ANESTHESIA FINDINGS: Intubation History: No history of difficult intubation Significant Anesthesia Considerations: none Airway History: No history of difficult airway I - PHYSICAL EVALUATION AIRWAY Tracheostomy tube not present Mallampati: III. TM distance: >3 FB. Neck ROM: full ROM without neurological symptoms. Mouth opening: adequate. Short neck: no. Thick neck: yes DENTAL Dental findings: teeth intact. Dentures, lower: partial. II - ANESTHESIA PLAN ASA Score: 3 Anesthetic Plan: other Anesthetic plan additional comments: *PACC/TCI - anesthesia choice. Informed Consent Anesthetic risks, benefits, alternatives, personnel and consent discussed: yes. Patient / Responsible Libertarian agrees to proceed: yes Patient / Surrogate agrees to blood products: blood products not planned Prepared for Surgery: optimally prepared for surgery. CONSULTS: Patient does not require consults for optimization at this time Planned Anesthetic: other anesthesia choice The Following Tests/Procedures Have Been Initiated: Orders Placed This Encounter rosuvastatin (CRESTOR) 10 mg tablet Sig: Take 10 mg by mouth once daily. allopurinol (ZYLOPRIM) 100 mg tablet Sig: Take 100 mg by mouth once daily. Instructions Given to Patient: Instructions located in the after visit summary. Patient given verbal and written preop instructions and voices comprehension and compliance. SIGNATURE: Alma Jackson APRN.CNP PATIENT NAME: Sohail Israel DATE: December 20, 2021 TIME: 3:48 PM PAGER/CONTACT #: documented in this encounter [facility] 08-31-2021 Miscellaneous Notes Cardiac clearance received and scanned 01-03-2022 Colon Jaramillo documented in this encounter [facility] 08-30-2021 Note HNO ID: [id number] Author: Lynda Venegas PA-C Service: ? Author Type: Physician Exhibit Carpenter Type: Progress Notes Filed: 08/30/2021 11:56 AM Note Text: HISTORY AND PHYSICAL Sohail Israel 1965 REFERRING PHYSICIAN: Self CHIEF COMPLAINT: Consult (Colonoscopy) HPI: The patient is a 55 year old male referred for endoscopy. Sohail notes a history of colon polyps. Patient denies any change in bowel habits, weight changes, blood in stools, black tarry stools or abdominal pain. The patient notes no upper GI complaints. Sohail has undergone prior endoscopy. Most recent colonoscopy 04/30/[address] Muir, records reviewed. That procedure was performed under [facility]. Patient had two polyps removed which returned as tubular adenoma and tubulovillous adenoma. He notes he experienced a post-polypectomy bleed for which he had follow-up colonoscopy which showed no obvious source of bleeding, but this resolved. Patient notes he had Suprep for prior colonoscopy and tolerated this well. Denies history of kidney issues. Patient's past medical history is significant for hypertension, type II diabetes mellitus, obesity, atrial fibrillation. Patient follows with Dr. Auguste in cardiology. PAST MEDICAL HISTORY Diagnosis Date - Hypertension - Type II or unspecified type diabetes mellitus without mention of complication, not stated as uncontrolled PAST SURGICAL HISTORY Procedure Laterality Date - PAST SURGICAL HISTORY OF 2005 Removal of infectious mass Rt groin Current Outpatient Medications Medication Sig - amLODIPine (NORVASC) 10 mg tablet Take 10 mg by mouth once daily. - apixaban (ELIQUIS) 5 mg tab(s) - carvedilol (COREG) 25 mg tablet - Cinnamon Bark (CINNAMON) 500 mg cap - empagliflozin (JARDIANCE) 25 mg tablet - icosapent ethyl (VASCEPA) 1 gram capsule - insulin detemir (LEVEMIR FLEXTOUCH U-100 INSULN SUBCUTANEOUS) - icosapent ethyl (VASCEPA) 1 gram capsule Take 2 g by mouth twice daily with meals. - metFORMIN 500 mg tablet Take 1,000 mg by mouth twice daily with meals. - lisinopril 20 mg tablet Take 20 mg by mouth once daily. - Ckaxg-3-HIT-EPA-Fish Oil 1,200 (144-216) mg cap Take by mouth twice daily. - Multivitamin capsule Take 1 capsule by mouth once daily. No current facility-administered medications for this visit. ALLERGIES: Patient has no known allergies. PERSONAL HISTORY: Social History Tobacco Use - Smoking status: Never Smoker - Smokeless tobacco: Not on file Substance Use Topics - Alcohol use: Not on file - Drug use: Not on file FAMILY HISTORY: FAMILY HISTORY Problem Relation Age of Onset - Diabetes Father - Heart Father - Diabetes Paternal Grandfather REVIEW OF SYMPTOMS: The review of systems data was entered by the nurse and reviewed by ga Nursing Notes: Stephanie Slater 08/30/2021 8:40 AM Signed REVIEW OF SYSTEMS: General: The patient denies fatigue, denies weight loss, denies weight gain, denies feeling hot, and denies feelings of cold. Eyes: The patient denies glaucoma, denies eye injury/surgery, does not wear glasses or contacts. Ear/Nose/Throat: The patient denies allergies, denies hayfever, denies ear infections, and denies bloody noses. Cardiovascular: The patient denies chest pain, denies heart disease, NOTES Afib.NOTES high blood pressure,denies cardiac stent, denies prior heart attack, denies irregular heart beat, NOTES high cholesterol, denies poor circulation, denies heart failure, other cardiac issues, denies claudication, denies cold feet, denies peripheral arterial stent. Respiratory: The patient denies tuberculosis, denies pneumonia, denies frequent cough, denies pulmonary embolism, denies shortness of breath, and denies coughing up blood. Gastrointestinal: The patient denies difficulty swallowing, denies acid reflux, denies ulcers, denies vomiting, denies jaundice/hepatitis, denies gallbladder problems, denies black or tarry stools, denies hemorrhoids, denies bleeding from rectum, denies diverticulitis, denies constipation, denies diarrhea, denies loss of stool control, and denies hernias. Kidney/Bladder: The patient denies kidney stones, denies urine infections, and denies bloody urine. Skin: The patient denies a history of skin cancer, denies bleeding/changing moles, and denies a history of skin rash. Neurologic: The patient denies a history of epilepsy/convulsions, denies headaches, denies head/spinal injuries, and denies stroke/TIA. Psychiatric: The patient denies psychiatric medications, denies depression, and denies voices, denies substance abuse. Endocrine: The patient denies thyroid disorders, NOTES diabetes, and denies hormonal problems. Hematologic: The patient denies a history of bruising, denies bleeding, and denies anemia, denies blood clots. Infections: The patient denies a history of measles and mumps, denies rheumatic fever, and denies sexually transmitted diseases. (more content not included)... [facility] 08-30-2021 History of Presen t illness Narrative HISTORY AND PHYSICAL Sohail Israel 1965 REFERRING PHYSICIAN: Self CHIEF COMPLAINT: Consult (Colonoscopy) HPI: The patient is a 55 year old male referred for endoscopy. Sohail notes a history of colon polyps. Patient denies any change in bowel habits, weight changes, blood in stools, black tarry stools or abdominal pain. The patient notes no upper GI complaints. Sohail has undergone prior endoscopy. Most recent colonoscopy 04/30/[address] Muir, records reviewed. That procedure was performed under [facility]. Patient had two polyps removed which returned as tubular adenoma and tubulovillous adenoma. He notes he experienced a post-polypectomy bleed for which he had follow-up colonoscopy which showed no obvious source of bleeding, but this resolved. Patient notes he had Suprep for prior colonoscopy and tolerated this well. Denies history of kidney issues. Patient's past medical history is significant for hypertension, type II diabetes mellitus, obesity, atrial fibrillation. Patient follows with Dr. Auguste in cardiology. PAST MEDICAL HISTORY Diagnosis Date Hypertension Type II or unspecified type diabetes mellitus without mention of complication, not stated as uncontrolled PAST SURGICAL HISTORY Procedure Laterality Date PAST SURGICAL HISTORY OF 2005 Removal of infectious mass Rt groin Current Outpatient Medications Medication Sig amLODIPine (NORVASC) 10 mg tablet Take 10 mg by mouth once daily. apixaban (ELIQUIS) 5 mg tab(s) carvedilol (COREG) 25 mg tablet Cinnamon Bark (CINNAMON) 500 mg cap empagliflozin (JARDIANCE) 25 mg tablet icosapent ethyl (VASCEPA) 1 gram capsule insulin detemir (LEVEMIR FLEXTOUCH U-100 INSULN SUBCUTANEOUS) icosapent ethyl (VASCEPA) 1 gram capsule Take 2 g by mouth twice daily with meals. metFORMIN 500 mg tablet Take 1,000 mg by mouth twice daily with meals. lisinopril 20 mg tablet Take 20 mg by mouth once daily. Fzegi-7-YPF-EPA-Fish Oil 1,200 (144-216) mg cap Take by mouth twice daily. Multivitamin capsule Take 1 capsule by mouth once daily. No current facility-administered medications for this visit. ALLERGIES: Patient has no known allergies. PERSONAL HISTORY: Social History Tobacco Use Smoking status: Never Smoker Smokeless tobacco: Not on file Substance Use Topics Alcohol use: Not on file Drug use: Not on file FAMILY HISTORY: FAMILY HISTORY Problem Relation Age of Onset Diabetes Father Heart Father Diabetes Paternal Grandfather REVIEW OF SYMPTOMS: The review of systems data was entered by the nurse and reviewed by ga Nursing Notes: Stephanie Slater 08/30/2021 8:40 AM Signed REVIEW OF SYSTEMS: General: The patient denies fatigue, denies weight loss, denies weight gain, denies feeling hot, and denies feelings of cold. Eyes: The patient denies glaucoma, denies eye injury/surgery, does not wear glasses or contacts. Ear/Nose/Throat: The patient denies allergies, denies hayfever, denies ear infections, and denies bloody noses. Cardiovascular: The patient denies chest pain, denies heart disease, NOTES Afib.NOTES high blood pressure,denies cardiac stent, denies prior heart attack, denies irregular heart beat, NOTES high cholesterol, denies poor circulation, denies heart failure, other cardiac issues, denies claudication, denies cold feet, denies peripheral arterial stent. Respiratory: The patient denies tuberculosis, denies pneumonia, denies frequent cough, denies pulmonary embolism, denies shortness of breath, and denies coughing up blood. Gastrointestinal: The patient denies difficulty swallowing, denies acid reflux, denies ulcers, denies vomiting, denies jaundice/hepatitis, denies gallbladder problems, denies black or tarry stools, denies hemorrhoids, denies bleeding from rectum, denies diverticulitis, denies constipation, denies diarrhea, denies loss of stool control, and denies hernias. Kidney/Bladder: The patient denies kidney stones, denies urine infections, and denies bloody urine. Skin: The patient denies a history of skin cancer, denies bleeding/changing moles, and denies a history of skin rash. Neurologic: The patient denies a history of epilepsy/convulsions, denies headaches, denies head/spinal injuries, and denies stroke/TIA. Psychiatric: The patient denies psychiatric medications, denies depression, and denies voices, denies substance abuse. Endocrine: The patient denies thyroid disorders, NOTES diabetes, and denies hormonal problems. Hematologic: The patient denies a history of bruising, denies bleeding, and denies anemia, denies blood clots. Infections: The patient denies a history of measles and mumps, denies rheumatic fever, and denies sexually transmitted diseases. Musculoskeletal: The patient denies back pain/injury, denies back problems, denies sciatica, NOTES knee/foot trouble, denies arthritis, or NOTES gout. When was patient's last Mammogram screening? N/A Last Colonoscopy: 2019 Stephanie Slater I have confirmed and edited as necessary, the PFSH and ROS obtained by others. Lynda Venegas PA-C PHYSICAL EXAMINATION: General: The patient is 55 year old male, well nourished, well hydrated in no acute distress. The patient is oriented to time, place, and person. VITALS: Blood pressure 156/93, pulse 104, temperature 36.7 C (98 F), height 195.6 cm (6' 5 ), weight (!) 194.6 kg (429 lb), SpO2 96 %. Body mass index is 50.87 kg/m . HEENT: Normal cephalic, ataumatic, pupils are equally round, sclera are anicteric, mucous membranes are moist, oropharynx is clear. Neck has no masses, asymmetry or lymphadenopathy. Respiratory: Clear to auscultation and percussion. Normal respiratory excursion and pattern. Cardiac: Examination is regular rate and rhythm. Normal S1/S2 Abdominal exam: Soft, nontender, with no palpable masses. No hepatosplenomegaly. No palpable hernias. Extremities: no clubbing, cyanosis or edema. No adenopathy. LABORATORY VALUES: As Noted RADIOLOGIC STUDIES: As Noted Assessment IMPRESSION: encounter for surveillance colonoscopy, personal history of polyps PLAN: I have reviewed my findings with the surgeon. Will plan for lower endoscopy. We discussed the risks and benefits of the planned endoscopy. I have informed the patient that complications can occur including failure to complete the endoscopy and perforation. The patient had the opportunity to ask questions concerning the planned endoscopy. My staff has also explained the procedure to the patient in understandable terms and has given the patient printed material concerning the procedure. The patient freely consents to surgery. The patient was offered a surgery/procedure at a [facility] facility. I have counseled the patient regarding the risk of exposure to and/or potential harm posed by the COVID-19 virus with having a surgery/procedure at this time versus the risk of delaying the surgery/procedure. It is not possible to know either the risk of delaying the surgery or procedure or chance of getting an infection with perfect accuracy, but a joint decision was made between the patient and myself to proceed at this time with endoscopy. I plan to use Suprep bowel preparation-patient used this previously and states tolerated well, was covered by insurance. Reviewed importance of excellent hydration with bowel prep Patient instructed to contact PCP for instructions regarding diabetic medication, which may require adjustment during bowel preparation and/or day of procedure Patient to remain on his anticoagulation per Dr. Avilez The patient has medical comorbidities for which we will plan for the procedure to be performed under [facility]. Diagnoses: (Z12.11, Z86.010) Encounter for colonoscopy due to history of colonic polyp (primary encounter diagnosis) I spent a total of 37 minutes on the date of the service which included preparing to see the patient, [id number] patient care, completing clinical documentation, obtaining and/or reviewing separately obtained history, performing a medically appropriate examination, counseling and educating the patient/family/caregiver, ordering medications, tests, or procedures and communicating with other HCPs (not separately reported). Lynda Venegas PA-C documented in this encounter [facility] 08-30-2021 Nurse Note REVIEW OF SYSTEMS: General: The patient denies fatigue, denies weight loss, denies weight gain, denies feeling hot, and denies feelings of cold. Eyes: The patient denies glaucoma, denies eye injury/surgery, does not wear glasses or contacts. Ear/Nose/Throat: The patient denies allergies, denies hayfever, denies ear infections, and denies bloody noses. Cardiovascular: The patient denies chest pain, denies heart disease, NOTES Afib.NOTES high blood pressure,denies cardiac stent, denies prior heart attack, denies irregular heart beat, NOTES high cholesterol, denies poor circulation, denies heart failure, other cardiac issues, denies claudication, denies cold feet, denies peripheral arterial stent. Respiratory: The patient denies tuberculosis, denies pneumonia, denies frequent cough, denies pulmonary embolism, denies shortness of breath, and denies coughing up blood. Gastrointestinal: The patient denies difficulty swallowing, denies acid reflux, denies ulcers, denies vomiting, denies jaundice/hepatitis, denies gallbladder problems, denies black or tarry stools, denies hemorrhoids, denies bleeding from rectum, denies diverticulitis, denies constipation, denies diarrhea, denies loss of stool control, and denies hernias. Kidney/Bladder: The patient denies kidney stones, denies urine infections, and denies bloody urine. Skin: The patient denies a history of skin cancer, denies bleeding/changing moles, and denies a history of skin rash. Neurologic: The patient denies a history of epilepsy/convulsions, denies headaches, denies head/spinal injuries, and denies stroke/TIA. Psychiatric: The patient denies psychiatric medications, denies depression, and denies voices, denies substance abuse. Endocrine: The patient denies thyroid disorders, NOTES diabetes, and denies hormonal problems. Hematologic: The patient denies a history of bruising, denies bleeding, and denies anemia, denies blood clots. Infections: The patient denies a history of measles and mumps, denies rheumatic fever, and denies sexually transmitted diseases. Musculoskeletal: The patient denies back pain/injury, denies back problems, denies sciatica, NOTES knee/foot trouble, denies arthritis, or NOTES gout. When was patient's last Mammogram screening? N/A Last Colonoscopy: 2018 Stephanie Slater documented in this encounter [facility] documented [facility] Diagnosis Personal history of colonic polyps- Primary [facility] Diagnosis Pre-operative examination- Primary Preoperative examination, unspecified History of colonic polyps Personal history of colonic polyps Atrial fibrillation, unspecified type (HCC) Hyperlipidemia, unspecified hyperlipidemia type Hypertension associated with type 2 diabetes mellitus (HCC) Diabetic foot ulcer associated with type 2 diabetes mellitus, unspecified laterality, unspecified part of foot, unspecified ulcer stage (HCC) Type 2 diabetes mellitus with diabetic polyneuropathy, with long-term current use of insulin (HCC) Morbid obesity (HCC) Morbid obesity TONYA (obstructive sleep apnea) Obstructive sleep apnea (adult) (pediatric) [facility]* Diagnosis Personal history of colonic polyps [facility] Diagnosis Palpitations Paroxysmal atrial fibrillation Atrial fibrillation [facility] Longstanding persistent atrial fibrillation- Primary Palpitations Paroxysmal atrial fibrillation Atrial fibrillation Longstanding persistent atrial fibrillation High risk medication use Encounter for long-term (current) use of other medications High risk medication use Encounter for long-term (current) use of other medications Morbid obesity Palpitations Paroxysmal atrial fibrillation Atrial fibrillation [facility] Longstanding persistent atrial fibrillation- Primary [facility] Procedure (Routine) - Authorized Specialty Diagnoses / Procedures Referred By Jason randhawa Referred To Contact [facility] Diagnoses Personal history of colonic polyps Procedures COLONOSCOPY SCREENING COLONOSCOPY FLX DX W/COLLJ SPEC WHEN Lynda Garcia PA-C [address] [place] [address] [address] Referral ID Status Reason Start Date Expiration Date Visits Requested Visits Authorized [id number] Authorized Auto-Generat ed Referral 08/30/2021 08/30/2022 1 1 [facility] for referral (narrative)* Outpatient Procedure (Routine) - Closed Specialty Diagnoses / Procedures Referred By Jason randhawa Referred To Contact [facility] Diagnoses Personal history of colonic polyps Procedures COLONOSCOPY SCREENING COLONOSCOPY FLX DX W/COLLJ SPEC WHEN Lynda Garcia PA-C [address] 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 [address] [place] [address] Referral ID Status Reason Start Date Expiration Date V isits Requested Visits Authorized [id number] New Request 09/08/2022 10/03/2023 1 1 * Radiology (Routine) - New Request Specialty Diagnoses / Procedures Referred By Jason randhawa Referred To Contact Diagnoses Longstanding persistent atrial fibrillation Procedures MOBILE CARDIAC TELEMETRY Felicita More APRN-CNP [address] [place] [address] Referral ID Status Reason Start Date Expiration Date V isits Requested Visits Authorized [id number] New Request 09/07/2022 10/02/2023 1 1 * Radiology (Routine) - New Request Specialty Diagnoses / Procedures Referred By Jason randhawa Referred To Contact Procedures ECG Felicita More APRN-CNP [address] [facility] [place] [address] Referral ID Status Reason Start Date Expiration Date V isits Requested Visits Authorized [id number] New Request 09/07/2022 10/02/2023 1 1 [facility] for visit Narrative* Outpatient Procedure (Routine) - Closed Specialty Diagnoses / Procedures Referred By Jason randhawa Referred To Contact [facility] Diagnoses Personal history of colonic polyps Procedures COLONOSCOPY SCREENING COLONOSCOPY FLX DX W/COLLJ SPEC WHEN PFRMD Lynda Venegas PA-C [address] [place] [address] [facility] [address] [place] [address] Referral ID Status Reason Start Date Expiration Date V isits Requested Visits Authorized [id number] Closed Auto-Generate d Referral 08/30/2021 08/30/2022 1 1 [facility] for visit Narrative* Auth/Cert Specialty Diagnoses / Procedures Referred By Jason t Referred To Contact Diagnoses Palpitations Paroxysmal atrial fibrillation Palpitations [R00.2] Paroxysmal atrial fibrillation [I48.0] Procedures OR COMPRE EP EVAL ABLTJ ATR FIB PULM VEIN ISOLATION ABLATION SCHED INTERCARDIAC A-FIB TRANSEPTAL BY PULM VEIN ISOLATION W/EP EVAL ([id number]) Kenyon Moya MD [address] [place] [phone] [facility] [address] [place] [id number] Referral ID Status Reason Start Date Expiration Date Visits Re quested Visits Authorized [id number] 1 1 [facility] Summary Purpose Family History No Family History Records FoundNo Family History Records FoundNo Family History Records FoundNo Family History Records Found Advance Directives Documents on File Type Date Recorded 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 Advance Directive(s) 01/03/2022 8:01 AM Latest Code Status on File Code Status Date Activated Date Inactivated Comments Full Code 09/08/2022 12:44 PM Medications Administered Section Inactive Administered Medications - up to 3 most recent administrations Medication Order MAR Action Action Date Dose Rate Site lactated ringers iv infusion 30 mL/hr, INTRAVENOUS, CONTINUOUS, Starting on Mon01/03/22 at 0700, Until Mon01/03/22 at 0839, Preprocedure New Bag/Syringe/Bottle 01/03/2022 7:30 AM EDT 30 mL/hr 30 mL/hr Reason for Referral Specialty Diagnoses / Procedures Referred By Jason randhawa Referred To Contact Diagnoses Palpitations Paroxysmal atrial fibrillation Procedures CT CARDIAC PULMONARY VENOGRAM OR CHG CT HEART CONTRAST EVAL CARDIAC STRUCT/MORPH Kenyon Moya MD [address] [place] [phone] Referral ID Status Reason Start Date Expiration Date Visits Re quested Visits Authorized [id number] Closed 06/28/2022 07/23/2023 1 1 Specialty Diagnoses / Procedures Referred By Jason randhawa Referred To Contact Diagnoses Longstanding persistent atrial fibrillation Procedures ECG Kenyon Moya MD [address] [place] [id number] Referral ID Status Reason Start Date Expiration Date V isits Requested Visits Authorized [id number] New Request 12/15/2022 01/09/2024 1 1 Additional Source Comments (unrecognized sect ion and content) No Status Records FoundNo Status Records FoundNo Status Records FoundNo Status Records Found INFORMATION SOURCE (unrecogn ized section and content) DATE CREATED AUTHOR AUTHOR'S ORGANIZ ATION 01/06/2022 [facility] DATE CREATED AUTHOR AUTHOR'S ORGANIZ ATION 02/04/2022 [facility] DATE CREATED AUTHOR AUTHOR'S ORGANIZ ATION 12/21/2022 [facility] Source Comments (unrecognize d section and content) In the event this informatio n is protected by the Federal Confidentiality of Alcohol and Drug Abuse Patient Records regulations: The Federal rules restrict any use of the information to criminally investigate or prosecute any alcohol or drug abuse patient.[facility] [place] the event this information is protected by the Federal Confidentiality of Alcohol and Drug Abuse Patient Records regulations: The Federal rules restrict any use of the information to criminally investigate or prosecute any alcohol or drug abuse patient.[facility] [place] the event this information is protected by the Federal Confidentiality of Alcohol and Drug Abuse Patient Records regulations: The Federal rules restrict any use of the information to criminally investigate or prosecute any alcohol or drug abuse patient.[facility] [place] the event this information is protected by the Federal Confidentiality of Alcohol and Drug Abuse Patient Records regulations: The Federal rules restrict any use of the information to criminally investigate or prosecute any alcohol or drug abuse patient.[facility] [place] the event this information is protected by the Federal Confidentiality of Alcohol and Drug Abuse Patient Records regulations: The Federal rules restrict any use of the information to criminally investigate or prosecute any alcohol or drug abuse patient.[facility] [place] Reason for Visit (unrecogniz ed section and content) Reason Comments 01-03-2022 Colon Jaramillo Reason Comments Consult Reason Comments Received Outside Medical Records [id number] Specialty Diagnoses / Procedures Referred By Contac t Referred To Contact Diagnoses Palpitations Paroxysmal atrial fibrillation Procedures CT CARDIAC PULMONARY VENOGRAM OR CHG CT HEART CONTRAST EVAL CARDIAC STRUCT/MORPH Kenoyn Moya MD [address] [place] [address] Referral ID Status Reason Start Date Expiration Date Visits Requested Visits Authorized [id number] Authorized - 06/28/2022 07/23/2023 1 1 Reason Comments Irregular Heart Beat Care Teams (unrecognized sec tion and content) Chemical Research Technician Relationship Specialty Start Date End Date Harry Kelly MD PCP - General 06/17/08 Chemical Research Technician Relationship Specialty Start Date End Date Harry Kelly MD PCP - General 06/17/08 Chemical Research Technician Relationship Specialty Start Date End Date Harry Kelly MD PCP - General 06/17/08 Chemical Research Technician Relationship Specialty Start Date End Date Harry Patton [address] [place] [address] PCP - General Family Practice 01/03/22 Chemical Research Technician Relationship Specialty Start Date End Date Harry Patton MD [address] [place] [address] PCP - General Family Medicine 06/17/21 Thad Auguste MD [address] [facility] [address] [place] [address] Cardiovascular Disease 06/24/22 Chemical Research Technician Relationship Specialty Start Date End Date Harry Patton MD [address] [place] [address] PCP - General Family Medicine 06/17/21 Thad Auguste MD [address] [facility] [address] [place] [address] Cardiovascular Disease 06/24/22 Chemical Research Technician Relationship Specialty Start Date End Date Harry Patton MD [address] [place] [address] PCP - General Family Medicine 06/17/21 Thad Auguste MD [address] [facility] [address] [place] [address] Cardiovascular Disease 06/24/22 Chemical Research Technician Relationship Specialty Start Date End Date Harry Patton MD [address] [place] [id number] PCP - General Family Medicine 06/17/21 Thad Auguste MD [address] [place], [place] [address] Cardiovascular Disease 06/24/22 Scheduled Active and Recently Administ ered Medications (unrecognized section and content) PRN Medication Order 09/08/2022 09/09/2022 09/10/2022 Dextrose 50% injection 7.5-25 g(Linked Group 1) 7.5-25 g, Intravenous, ADMINISTER DIRECTED, Starting on Mon09/07/22 at 1606, Until 09/10/22 at 1220, Blood glucose <80 mg/dL, For patients who are not alert, are NPO, or are on IV insulin infusion administer as directed per Hypoglycemia in Non- Adults Clinical Practice Guideline. For Blood Glucose: 60-79 mg/dL administer 7.5 gm (15ml); 45-59 mg/dL administer 12.5 gm (25ml); less than 45mg/dL administer 25gm (50ml). ++ If additional dextrose 50% needed, contact pharmacy or obtain from crash cart ++ glucose (GLUTOSE) 40 % oral gel 1-2 Tube(Linked Group 1) 1-2 Tube, Oral, ADMINISTER DIRECTED, Starting on Mon09/07/22 at 1606, Until 09/10/22 at 1220, Blood glucose <80 mg/dL, For patients who are alert, able to tolerate PO intake and with intact cognitive status administer as directed per Hypoglycemia in Non- Adults Clinical Practice Guideline. For Blood Glucose: 60-79 mg/dL administer 1 tube; 45-59 mg/dl administer 1.5 tubes; less than 45 mg/dL administer 2 tubes. Each tube of 37.5g delivers 15g of carbohydrate. HYDROmorphone (DILAUDID) injection 0.2 mg 0.2 mg, Intravenous, EVERY 5 MINUTES NEEDED, Starting on Mon09/07/22 at 1043, Until 09/10/22 at 1220, Moderate Pain, Severe Pain, Use as initial dose. Higher dose may be administered if lower dose did not result in adverse effects (RR<10, decrease in level of consciousness) and was previously documented as ineffective. May give a total of 4mg in PACU., Recovery magnesium oxide (MAG-OX) tablet 800 mg 800 mg, Oral, ADMINISTER DIRECTED, Starting on Rama 09/08/22 at 0703, Until 09/10/22 at 1220, See admin instructions, For Magnesium 1.6 - 2.0, give 800 mg of Magnesium oxide 1005 (Given - Provider: Clau Mondragon, LACIE) 0456 (Given - Provider: Milka Joe, LACIE) 0533 (Given - Provider: Malcolm Jones RN) Magnesium sulfate 4 g in sterile water 50 ml premix IVPB 4 g, Intravenous, Administer over 4 Hours, ADMINISTER DIRECTED, Starting on Rama 09/08/22 at 0703, Until 09/10/22 at 1220, Other, See adminstration instructions, If Magnesium less than 1.6, give 4 g Magnesium Sulfate IVPB over 4 hours (may give over 1 hour if arrhythmias present). 0945 (Not Given - Provider: Clau Mondragon RN - Reason: Other - Comment: see alt order. po med given; instead of IV. Infusion caused too much pain, team informed.) Potassium chloride (K-DUR) tablet ER 20 mEq 20 mEq, Oral, ADMINISTER DIRECTED, Starting on Rama 09/08/22 at 0703, Until 09/10/22 at 1220, See admin instructions, If Cr 2.0 - 2.5 mg/dL For Potassium less than 3.6, give 20 mEq Potassium Chloride orally, recheck in AM. If Cr greater than 2.5 mg/dL contact physician/LIP for Potassium less than 3.6 for replacement orders. If potassium is low please administer magnesium first if indicated Potassium chloride (K-DUR) tablet ER 40-60 mEq 40-60 mEq, Oral, ADMINISTER DIRECTED, Starting on Rama 09/08/22 at 0703, Until 09/10/22 at 1220, See admin instructions, If Cr less than 2.0 mg/dL 1. For Potassium 3.6 - 4.0, give 40 mEq of Potassium Chloride orally, recheck in the AM. 2. For Potassium less than 3.6, give 60 mEq Potassium Chloride orally, recheck in 8 hours. 3. If potassium is low please administer magnesium first if indicated. 0930 (Given - Provider: Clau Mondragon RN) 0533 (Given - Provider: Malcolm Jones RN) Prochlorperazine (COMPAZINE) injection 5 mg 5 mg, Intravenous, EVERY 1 HOUR NEEDED, 2 doses, Starting on Mon09/07/22 at 1043, Until 09/10/22 at 1220, Refractory Nausea Vomiting, SECOND line antiemetic, Do not administer within 6 hours of intra-operative dose. For IV route: dilute dose with 10mL normal saline and give by slow IV push at a rate of 5mg/min. Maximum of 40mg/day., Recovery Sodium chloride 0.9% IV solution 500 mL Intravenous, at 20 mL/hr, ADMINISTER DIRECTED, Starting on Mon09/07/22 at 0847, Until 09/10/22 at 1220, Per treatment plan, Start the morning of procedure., Pre-op/Pre-Proc Linked Groups Order Group 1: Insulin lispro (HUMALOG) injectionJump to med Subcutaneous, 4 TIMES DAILY WITH MEALS & AT BEDTIME, First dose on Mon09/07/22 at 1700, Until Discontinued
Correction Factor: 151-200 = 1 unit; 201- 250 = 2 units; 251-300 = 3 units; 301-350 = 4 units; 351-400 = 5 units; Kwikpen: Prime pen before each injection; refer to Pen Priming and Care Handout for further details. Warning! Confirm patient. Insulin pen is for labeled individual patient use ONLY.
And BLOOD GLUCOSE (POC DEVICE) (CANCELED) Routine, 4 TIMES DAILY BEFORE MEALS & AT BEDTIME, First occurrence on Mon09/07/22 at 2100
If any Blood Glucose (POC) is greater than 300mg/dl, then repeat Blood Glucose (POC) in 2 hours. If the initial blood glucose was greater than 300mg/dl and if second blood glucose is greater than 200md/dl, then notify Field Sales Executive. And BLOOD GLUCOSE (POC DEVICE) (CANCELED) Routine, DIRECTED, Starting on Mon09/07/22 at 1606, Until Specified
For all Blood Glucose LESS THAN 80 mg/dL, treat per Hypoglycemia in Non- Adults Clinical Practice Guideline (CPG) and recheck glucose 15 min after treatment. Repeat per CPG until glucose GREATER THAN 80 mg/dL. Once glucose IS GREATER THAN 80 mg/dL, recheck Blood Glucose every 1 hour x2, then resume as previously ordered. For Blood Glucose LESS THAN 80 mg/dL on admission OR LESS than 45 mg/dL at any time, obtain POC Blood Glucose every 4 hours for 6 occurrences AFTER treating per CPG. Obtain blood glucose for symptoms of hypoglycemia: sweating, shaking, fatigue, rapid pulse, slow thinking & dizziness. Notify physician w/results. Obtain blood glucose for symptoms of hyperglycemia: excessive thirst, blurred vision, excessive urination & tiredness. Notify physician w/results. If patient NPO, obtain POC Blood Glucose prior to administration of any insulin products. And COMMUNICATION ORDER FOR NURSING CARE: For Blood Glucose LESS THAN 80 mg/dl (CANCELED) Routine, CONTINUOUS, Starting on Mon09/07/22 at 1607, Until Specified
For Blood Glucose LESS THAN 80 mg/dl follow Hypoglycemia in Non- Adults Clinical Practice Guideline (CPG) And Dextrose 50% injection 7.5-25 gJump to med 7.5-25 g, Intravenous, ADMINISTER DIRECTED, Starting on Mon09/07/22 at 1606, Until 09/10/22 at 1220, Blood glucose <80 mg/dL
For patients who are not alert, are NPO, or are on IV insulin infusion administer as directed per Hypoglycemia in Non- Adults Clinical Practice Guideline. For Blood Glucose: 60-79 mg/dL administer 7.5 gm (15ml); 45-59 mg/dL administer 12.5 gm (25ml); less than 45mg/dL administer 25gm (50ml). ++ If additional dextrose 50% needed, contact pharmacy or obtain from [facility] cart ++
And glucose (GLUTOSE) 40 % oral gel 1-2 TubeJump to med 1-2 Tube, Oral, ADMINISTER DIRECTED, Starting on Mon09/07/22 at 1606, Until 09/10/22 at 1220, Blood glucose <80 mg/dL
For patients who are alert, able to tolerate PO intake and with intact cognitive status administer as directed per Hypoglycemia in Non- Adults Clinical Practice Guideline. For Blood Glucose: 60-79 mg/dL administer 1 tube; 45-59 mg/dl administer 1.5 tubes; less than 45 mg/dL administer 2 tubes. Each tube of 37.5g delivers 15g of carbohydrate.
And NOTIFY PHYSICIAN, Blood Glucose LESS THAN 80 mg/dl (CANCELED) Routine, CONTINUOUS, Starting on Mon09/07/22 at 1607, Until Specified
Who to Notify: Field Sales Executive
For all Blood Glucose LESS THAN 80 mg/dl, notify Field Sales Executive after treatment per Hypoglycemia in Non- Adults Clinical Practice Guideline And Carbohydrate counts with meals (CANCELED) Routine, CONTINUOUS, Starting on Mon09/07/22 at 1607, Until Specified
Carbohydrate counts are to be done after each patient meal and with snack. FOR RECORDS PERTAINING TO PATIENTS WHO ARE OR HAVE BEEN ENROLLED IN A CHEMICAL DEPENDENCY/SUBSTANCEABUSE PROGRAM, SOME INFORMATION MAY BE OMITTED. This clinical summary was aggregated from multiple sources. Caution should be exercised in using it in the provision of clinical care. This summary normalizes information from multiple sources, and as a consequence, information in this document may materially change the coding, format and clinical context of patient data. In addition, data may be omitted in some cases. CLINICAL DECISIONS SHOULD BE BASED ON THE PRIMARY CLINICAL RECORDS. [employer] [facility]. provides no warranty or guarantee of the accuracy or completeness of information in this document.
[2023-06-17 08:11] LABS: Absolute Neutrophil Count 4.4 X10^3/uL (2.0-7.7); Basophil# 0.06 X10^3/uL; Basophil% 0.8 % (0-1); Eosinophil# 0.27 X10^3/uL; Eosinophils% 3.5 % (0-5); Hematocrit 53.3 % (40-54); Hemoglobin 17.9 g/dL (13.0-16.5); Mean Corp Hgb Conc 33.6 g/dL (32-36); Mean Corpuscular Hgb 28.9 pg (27.0-32.0); Mean Corpuscular Volume 86.1 fL (80-94); Mean Platelet Vol. 9.3 fl (6.2-12.0); Monocyte# 0.79 X10^3/uL; Monocyte% 10.3 % (0-10); NRBC Flagged by Analyzer 0 % (0-5); Neutrophil # 4.44 X10^3/uL (2.7-7.7); Neutrophil % 57.6 % (47-70); Platelet Count 215 K/mm3 (150-450); RBC Distribution Width CV 13.7 % (11.6-14.6); RBC Distribution Width SD 42.2 fl (35.1-43.9); Red Blood Count 6.19 M/mm3 (4.6-6.2); White Blood Count 7.7 K/mm3 (4.4-11.0)
[2023-06-17 08:48] LABS: Hemoglobin A1c 6.5 % (3.8-5.6)
[2023-06-17 08:50] LABS: ALB/GLOB Ratio 0.9 RATIO (0.9-2.4); AST(SGOT) 10 U/L (15-37); Alanine Aminotransfer ALT/SGPT 28 U/L (16-61); Albumin, Serum 3.5 g/dL (3.2-5.0); Alkaline Phosphatase 58 U/L (45-117); Anion Gap 6 (5-15); BUN 21 mg/dL (7-18); BUN/Creat Ratio 19.8 RATIO (10-20); Calcium,Total 9.1 mg/dL (8.5-10.1); Chloride 106 mmol/L (98-107); Cholesterol 153 mg/dL (200); Creatinine, Serum 1.06 mg/dL (0.70-1.30); EST Glomerular Filtration Rate 77 mL/min (>60); Est Glom Filt Rate - Afr Amer 93 mL/min (>60); Glucose 197 mg/dL (74-106); High Density Lipoprotein 50 mg/dL; Magnesium 2.1 mg/dL (1.6-2.6); Potassium 4.3 mmol/L (3.5-5.1); Protein, Total 7.5 g/dL (6.4-8.2); Sodium Level 139 mmol/L (136-145); Triglycerides 138 mg/dL; Very Low Density Lipoprotein 28 mg/dL (5-40)
[2023-06-17 10:18] LABS: Microalbumin:Creatinine Ratio 335.5 mg/g CRE (<30 mg/g CRE)
== END | disposition home or self-care (01) ==
LOC: LAB 07:48
PROVIDERS: PCP Family Medicine; Referring Provider Family Medicine; Visit Provider Family Medicine
DX: E11.8 Type 2 diabetes mellitus with unspecified complications (principal); I48.92 Unspecified atrial flutter
CPT/HCPCS: 36415; 80053; 80061; 82043; 82570; 83036; 83735; 85025

== ENCOUNTER → 2023-09-16 | Outpatient (CLI) | payer OTHER, SELFPAY ==
[2023-09-16 08:36] LABS: Absolute Neutrophil Count 3.5 X10^3/uL (2.0-7.7); Basophil# 0.05 X10^3/uL; Basophil% 0.7 % (0-1); Eosinophil# 0.33 X10^3/uL; Eosinophils% 4.8 % (0-5); Hematocrit 51.4 % (40-54); Lymphocyte % 28.9 % (19-41); Mean Corp Hgb Conc 33.1 g/dL (32-36); Mean Corpuscular Hgb 29.1 pg (27.0-32.0); Mean Corpuscular Volume 87.9 fL (80-94); Mean Platelet Vol. 9.6 fl (6.2-12.0); Monocyte# 0.92 X10^3/uL; Monocyte% 13.3 % (0-10); NRBC Flagged by Analyzer 0 % (0-5); Neutrophil # 3.49 X10^3/uL (2.7-7.7); Neutrophil % 50.4 % (47-70); Platelet Count 201 K/mm3 (150-450); RBC Distribution Width CV 13.5 % (11.6-14.6); RBC Distribution Width SD 43.8 fl (35.1-43.9); Red Blood Count 5.85 M/mm3 (4.6-6.2); White Blood Count 6.9 K/mm3 (4.4-11.0)
[2023-09-16 09:00] LABS: Hemoglobin A1c 7.3 % (3.8-5.6)
[2023-09-16 09:03] LABS: ALB/GLOB Ratio 0.9 RATIO (0.9-2.4); AST(SGOT) 16 U/L (15-37); Alanine Aminotransfer ALT/SGPT 28 U/L (16-61); Albumin, Serum 3.5 g/dL (3.2-5.0); Alkaline Phosphatase 53 U/L (45-117); Anion Gap 3 (5-15); BUN 21 mg/dL (7-18); BUN/Creat Ratio 18.3 RATIO (10-20); Calcium,Total 9.2 mg/dL (8.5-10.1); Chloride 105 mmol/L (98-107); Cholesterol 148 mg/dL (200); Creatinine, Serum 1.15 mg/dL (0.70-1.30); EST Glomerular Filtration Rate 70 mL/min (>60); Est Glom Filt Rate - Afr Amer 85 mL/min (>60); Globulin 3.7 g/dL (2.2-4.2); Glucose 168 mg/dL (74-106); High Density Lipoprotein 40 mg/dL; Magnesium 1.9 mg/dL (1.6-2.6); Potassium 4.4 mmol/L (3.5-5.1); Protein, Total 7.2 g/dL (6.4-8.2); Sodium Level 137 mmol/L (136-145); Triglycerides 263 mg/dL; Very Low Density Lipoprotein 53 mg/dL (5-40)
[2023-09-16 10:18] LABS: Microalbumin,Random Urine 58.5 mg/L (NO RANGE EST.); Microalbumin:Creatinine Ratio 153.9 mg/g CRE (<30 mg/g CRE)
== END | disposition home or self-care (01) ==
LOC: LAB 07:56
PROVIDERS: PCP Family Medicine; Referring Provider Family Medicine; Visit Provider Family Medicine
DX: E11.8 Type 2 diabetes mellitus with unspecified complications (principal); I48.92 Unspecified atrial flutter
CPT/HCPCS: 80053; 80061; 82043; 82570; 83036; 83735; 85025

== ENCOUNTER → 2023-12-12 | Outpatient (CLI) | payer OTHER, SELFPAY ==
[2023-12-12 08:13] LABS: Mucous, Urine 0 SEEN /hpf (<or=2+)
[2023-12-12 10:08] LABS: Absolute Neutrophil Count 3.5 X10^3/uL (2.0-7.7); Basophil# 0.05 X10^3/uL; Basophil% 0.8 % (0-1); Eosinophil# 0.31 X10^3/uL; Eosinophils% 4.8 % (0-5); Hematocrit 50.2 % (40-54); Hemoglobin 16.8 g/dL (13.0-16.5); Lymphocyte % 27.7 % (19-41); Mean Corp Hgb Conc 33.5 g/dL (32-36); Mean Corpuscular Hgb 29.1 pg (27.0-32.0); Mean Corpuscular Volume 86.9 fL (80-94); Mean Platelet Vol. 9.7 fl (6.2-12.0); Monocyte# 0.79 X10^3/uL; Monocyte% 12.2 % (0-10); NRBC Flagged by Analyzer 0 % (0-5); Neutrophil # 3.46 X10^3/uL (2.7-7.7); Neutrophil % 53.1 % (47-70); Platelet Count 236 K/mm3 (150-450); RBC Distribution Width SD 44.6 fl (35.1-43.9); Red Blood Count 5.78 M/mm3 (4.6-6.2); White Blood Count 6.5 K/mm3 (4.4-11.0)
[2023-12-12 10:27] LABS: ALB/GLOB Ratio 0.9 RATIO (0.9-2.4); AST(SGOT) 13 U/L (15-37); Alanine Aminotransfer ALT/SGPT 21 U/L (16-61); Albumin, Serum 3.5 g/dL (3.2-5.0); Alkaline Phosphatase 53 U/L (45-117); Anion Gap 7 (5-15); BUN 19 mg/dL (7-18); BUN/Creat Ratio 18.1 RATIO (10-20); Calcium,Total 9.2 mg/dL (8.5-10.1); Chloride 107 mmol/L (98-107); Cholesterol 140 mg/dL (200); Color, Urine Yellow (Yellow); Creatinine, Serum 1.05 mg/dL (0.70-1.30); EST Glomerular Filtration Rate 78 mL/min (>60); Est Glom Filt Rate - Afr Amer 94 mL/min (>60); Globulin 3.7 g/dL (2.2-4.2); Glucose 176 mg/dL (74-106); Glucose, Dipstick 1000 mg/dl (Normal); High Density Lipoprotein 36 mg/dL; Ketone-Dipstick Negative (Negative); Leukocyte Esterase-Dipstick 100 /ul (Negative); Magnesium 1.9 mg/dL (1.6-2.6); Nitrite-Dipstick Negative (Negative); Occult Blood-Urine 10 /ul (Negative); Potassium 4.1 mmol/L (3.5-5.1); Protein, Total 7.2 g/dL (6.4-8.2); Protein-Dipstick Negative (Negative); Sodium Level 137 mmol/L (136-145); Specific Gravity, Urine 1.015 (1.002-1.030); Triglycerides 267 mg/dL; Urine Bilirubin Dipstick Negative (Negative); Urine Clarity Clear (Clear); Urine Urobilinogen Normal (Normal); Very Low Density Lipoprotein 53 mg/dL (5-40)
[2023-12-12 10:36] LABS: Red Blood Cells-Urine 0-5 SEEN /hpf (0-5); Squamous Epithelial Cells - UA 0-5 SEEN /hpf (0-5); White Blood Cells 5-10 SEEN /hpf (0-5)
[2023-12-12 10:37] LABS: Bacteria 1+ /hpf (None Seen); Yeast-Urine 1+ /hpf (None Seen)
[2023-12-12 11:02] LABS: Microalbumin,Random Urine 63.7 mg/L (NO RANGE EST.); Microalbumin:Creatinine Ratio 81.1 mg/g CRE (<30 mg/g CRE)
== END | disposition home or self-care (01) ==
LOC: MFPLAB 08:10
PROVIDERS: PCP Family Medicine; Visit Provider Family Medicine
DX: E11.8 Type 2 diabetes mellitus with unspecified complications (principal); I48.92 Unspecified atrial flutter
CPT/HCPCS: 36415; 80053; 80061; 81001; 82043; 82570; 83036; 83735; 85025

== ENCOUNTER → 2024-03-23 | Outpatient (CLI) | payer OTHER, SELFPAY ==
[2024-03-23 07:25] LABS: Bacteria 0 SEEN /hpf (None Seen); Mucous, Urine 0 SEEN /hpf (<or=2+); Red Blood Cells-Urine 0 SEEN /hpf (0-5)
[2024-03-23 07:54] LABS: Absolute Lymphocyte Count 2.16 X10^3/uL (0.83-4.51); Absolute Neutrophil Count 4.5 X10^3/uL (2.0-7.7); Basophil# 0.07 X10^3/uL; Basophil% 0.9 % (0-1); Eosinophil# 0.21 X10^3/uL; Eosinophils% 2.6 % (0-5); Hematocrit 52.8 % (40-54); Hemoglobin 17.6 g/dL (13.0-16.5); Lymphocyte # 2.16 X10^3/ul (0.83-4.51); Mean Corp Hgb Conc 33.3 g/dL (32-36); Mean Corpuscular Hgb 28.9 pg (27.0-32.0); Mean Corpuscular Volume 86.6 fL (80-94); Mean Platelet Vol. 9.2 fl (6.2-12.0); Monocyte# 1.01 X10^3/uL; Monocyte% 12.6 % (0-10); NRBC Flagged by Analyzer 0 % (0-5); Neutrophil # 4.47 X10^3/uL (2.7-7.7); Neutrophil % 55.9 % (47-70); Platelet Count 236 K/mm3 (150-450); RBC Distribution Width CV 13.5 % (11.6-14.6); RBC Distribution Width SD 41.7 fl (35.1-43.9)
[2024-03-23 08:33] LABS: Color, Urine Yellow (Yellow); Glucose, Dipstick 250 mg/dl (Normal); Ketone-Dipstick Negative (Negative); Leukocyte Esterase-Dipstick 500 /ul (Negative); Nitrite-Dipstick Negative (Negative); Occult Blood-Urine Negative /ul (Negative); Protein-Dipstick 15 mg/dl (Negative); Urine Bilirubin Dipstick Negative (Negative); Urine Clarity Clear (Clear); Urine Urobilinogen Normal (Normal)
[2024-03-23 08:35] LABS: Squamous Epithelial Cells - UA 0-5 SEEN /hpf (0-5); White Blood Cells 0-5 SEEN /hpf (0-5)
[2024-03-23 10:01] LABS: ALB/GLOB Ratio 1.1 RATIO (0.9-2.4); AST(SGOT) 14 U/L (15-37); Alanine Aminotransfer ALT/SGPT 19 U/L (16-61); Albumin, Serum 3.8 g/dL (3.2-5.0); Alkaline Phosphatase 54 U/L (45-117); Anion Gap 5 (5-15); BUN 19 mg/dL (7-18); BUN/Creat Ratio 15.3 RATIO (10-20); Calcium,Total 9.4 mg/dL (8.5-10.1); Chloride 107 mmol/L (98-107); Cholesterol 112 mg/dL (200); Creatinine, Serum 1.24 mg/dL (0.70-1.30); EST Glomerular Filtration Rate 64 mL/min (>60); Est Glom Filt Rate - Afr Amer 78 mL/min (>60); Globulin 3.6 g/dL (2.2-4.2); Glucose 122 mg/dL (74-106); High Density Lipoprotein 41 mg/dL; Potassium 5.1 mmol/L (3.5-5.1); Protein, Total 7.4 g/dL (6.4-8.2); Sodium Level 140 mmol/L (136-145); Triglycerides 102 mg/dL; Very Low Density Lipoprotein 20 mg/dL (5-40)
[2024-03-23 12:22] LABS: Hemoglobin A1c 6.4 % (3.8-5.6)
== END | disposition home or self-care (01) ==
LOC: LAB 07:20
PROVIDERS: PCP Family Medicine; Referring Provider Family Medicine; Visit Provider Family Medicine
DX: E11.8 Type 2 diabetes mellitus with unspecified complications (principal)
CPT/HCPCS: 80053; 80061; 81001; 83036; 85025

== ENCOUNTER → 2024-06-22 | Outpatient (CLI) | payer BC, SELFPAY ==
[2024-06-22 07:40] LABS: Mucous, Urine 0 SEEN /hpf (<or=2+); Red Blood Cells-Urine 0 SEEN /hpf (0-5)
[2024-06-22 08:06] LABS: Absolute Lymphocyte Count 1.72 X10^3/uL (0.83-4.51); Absolute Neutrophil Count 4.2 X10^3/uL (2.0-7.7); Basophil# 0.07 X10^3/uL; Basophil% 0.9 % (0-1); Eosinophil# 0.27 X10^3/uL; Eosinophils% 3.7 % (0-5); Hematocrit 53.2 % (40-54); Lymphocyte # 1.72 X10^3/ul (0.83-4.51); Lymphocyte % 23.3 % (19-41); Mean Corp Hgb Conc 33.8 g/dL (32-36); Mean Corpuscular Hgb 29.2 pg (27.0-32.0); Mean Corpuscular Volume 86.2 fL (80-94); Mean Platelet Vol. 9.1 fl (6.2-12.0); Monocyte# 1.02 X10^3/uL; Monocyte% 13.8 % (0-10); NRBC Flagged by Analyzer 0 % (0-5); Neutrophil # 4.23 X10^3/uL (2.7-7.7); Neutrophil % 57.2 % (47-70); Platelet Count 251 K/mm3 (150-450); RBC Distribution Width CV 14.2 % (11.6-14.6); RBC Distribution Width SD 43.9 fl (35.1-43.9); Red Blood Count 6.17 M/mm3 (4.6-6.2); White Blood Count 7.4 K/mm3 (4.4-11.0)
[2024-06-22 08:12] LABS: Color, Urine Straw (Yellow); Glucose, Dipstick 1000 mg/dl (Normal); Ketone-Dipstick Negative (Negative); Leukocyte Esterase-Dipstick Negative /ul (Negative); Nitrite-Dipstick Negative (Negative); Occult Blood-Urine Negative /ul (Negative); Protein-Dipstick 30 mg/dl (Negative); Urine Bilirubin Dipstick Negative (Negative); Urine Clarity Clear (Clear); Urine Urobilinogen Normal (Normal)
[2024-06-22 08:38] LABS: Bacteria RARE /hpf (None Seen); Squamous Epithelial Cells - UA 0-5 SEEN /hpf (0-5); White Blood Cells 0-5 SEEN /hpf (0-5)
[2024-06-22 08:39] LABS: AST(SGOT) 10 U/L (15-37); Alanine Aminotransfer ALT/SGPT 17 U/L (16-61); Albumin, Serum 3.7 g/dL (3.2-5.0); Alkaline Phosphatase 60 U/L (45-117); Anion Gap 5 (5-15); BUN 21 mg/dL (7-18); BUN/Creat Ratio 15.4 RATIO (10-20); Calcium,Total 9.1 mg/dL (8.5-10.1); Chloride 107 mmol/L (98-107); Cholesterol 101 mg/dL (200); Creatinine, Serum 1.36 mg/dL (0.70-1.30); EST Glomerular Filtration Rate 58 mL/min (>60); Est Glom Filt Rate - Afr Amer 70 mL/min (>60); Globulin 3.7 g/dL (2.2-4.2); Glucose 125 mg/dL (74-106); High Density Lipoprotein 38 mg/dL; Magnesium 2.1 mg/dL (1.6-2.6); Potassium 4.6 mmol/L (3.5-5.1); Protein, Total 7.4 g/dL (6.4-8.2); Sodium Level 138 mmol/L (136-145); Triglycerides 127 mg/dL; Very Low Density Lipoprotein 25 mg/dL (5-40)
[2024-06-22 08:43] LABS: Hemoglobin A1c 5.8 % (3.8-5.6)
[2024-06-22 08:44] LABS: Differential Indicated SCAN CRITERIA MET
[2024-06-22 10:05] LABS: Microalbumin,Random Urine 70.3 mg/L (NO RANGE EST.); Microalbumin:Creatinine Ratio 108.8 mg/g CRE (<30 mg/g CRE)
[2024-06-24 13:33] LABS: Pathologist Review Reviewed
== END | disposition home or self-care (01) ==
LOC: LAB 07:24
PROVIDERS: PCP Family Medicine; Referring Provider Family Medicine; Visit Provider Family Medicine
DX: E11.8 Type 2 diabetes mellitus with unspecified complications (principal); I48.92 Unspecified atrial flutter
CPT/HCPCS: 36415; 80053; 80061; 81001; 82043; 82570; 83036; 83735; 85025

== ENCOUNTER → 2024-09-07 | Outpatient (CLI) | payer BC, SELFPAY ==
[2024-09-07 15:09] LABS: Anion Gap 13 (5-15); BUN 14 mg/dL (4-19); BUN/Creat Ratio 12.5 RATIO (10-20); Calcium,Total 9.7 mg/dL (7.6-11.0); Chloride 102 mmol/L (98-108); EST Glomerular Filtration Rate 79 (>60); Ferritin 294 ng/mL (37-417); Glucose 109 mg/dL (70-99); Iron 61 ug/dL (65-175); Potassium 4.8 mmol/L (3.3-5.1); Sodium Level 139 mmol/L (133-145)
[2024-09-08 08:07] LABS: Transferrin 252 mg/dL (177-329)
== END | disposition home or self-care (01) ==
PROVIDERS: PCP Family Medicine; Referring Provider Family Medicine; Visit Provider Family Medicine
DX: D58.2 Other hemoglobinopathies (principal); R94.4 Abnormal results of kidney function studies
CPT/HCPCS: 36415; 80048; 82728; 83540; 84466

== ENCOUNTER → 2024-09-16 | Outpatient (CLI) | payer BC, SELFPAY ==
[2024-09-16 19:39] LABS: PSA,Total - Annual Screen 1.09 ng/mL (0.02-4.00)
== END | disposition home or self-care (01) ==
LOC: MFPLAB 16:10
PROVIDERS: PCP Family Medicine; Referring Provider Family Medicine; Visit Provider Family Medicine
DX: Z12.5 Encounter for screening for malignant neoplasm of prostate (principal)
CPT/HCPCS: 36415; 84153; G0103

== ENCOUNTER 2024-11-04 06:05 | Emergency (ER) | payer BC, SELFPAY ==
[2024-11-04] VITALS (7 sets, daily range): BP systolic 127–158; BP diastolic 76–81; PULSE 107–112; RESP 12–22; TEMP 36.9–37.3; O2SAT 97–100; BMI 47.2
[2024-11-04 06:21] LABS: Mucous, Urine 0 SEEN /hpf (<or=2+); Red Blood Cells-Urine 0 SEEN /hpf (0-5)
[2024-11-04 06:22] LABS: Color, Urine Yellow (Yellow); Glucose, Dipstick 1000 mg/dl (Normal); Ketone-Dipstick 15 mg/dl (Negative); Leukocyte Esterase-Dipstick 500 /ul (Negative); Nitrite-Dipstick Positive (Negative); Occult Blood-Urine 25 /ul (Negative); Protein-Dipstick 30 mg/dl (Negative); Specific Gravity, Urine 1.015 (1.002-1.030); Urine Bilirubin Dipstick Negative (Negative); Urine Clarity Cloudy (Clear); Urine Urobilinogen Normal (Normal)
[2024-11-04] MEDS: 0.9% Normal Saline (1000mL) 1,000 ML 999 ML IV (06:31)
[2024-11-04 06:38] LABS: Absolute Lymphocyte Count 0.93 X10^3/uL (0.83-4.51); Absolute Neutrophil Count 15.7 X10^3/uL (2.0-7.7); Basophil# 0.07 X10^3/uL; Basophil% 0.4 % (0-1); Eosinophil# 0.03 X10^3/uL; Eosinophils% 0.2 % (0-5); Hematocrit 50.5 % (40-54); Hemoglobin 17.1 g/dL (13.0-16.5); Lymphocyte # 0.93 X10^3/ul (0.83-4.51); Mean Corp Hgb Conc 33.9 g/dL (32-36); Mean Corpuscular Hgb 29.2 pg (27.0-32.0); Mean Corpuscular Volume 86.2 fL (80-94); Mean Platelet Vol. 8.9 fl (6.2-12.0); Monocyte# 1.88 X10^3/uL; NRBC Flagged by Analyzer 0 % (0-5); Neutrophil # 15.72 X10^3/uL (2.7-7.7); Neutrophil % 83.6 % (47-70); POSITIVE DIFFERENTIAL YES; POSITIVE MORPHOLOGY YES; Platelet Count 188 K/mm3 (150-450); RBC Distribution Width CV 13.7 % (11.6-14.6); Red Blood Count 5.86 M/mm3 (4.6-6.2); White Blood Count 18.8 K/mm3 (4.4-11.0)
[2024-11-04 06:48] LABS: International Normalized Ratio 1.4; Prothrombin Time (Protime)PT. 17.4 SECONDS (11.7-14.9)
[2024-11-04 06:49] LABS: Partial Thromboplast Time 32.1 Seconds (24.1-36.2)
[2024-11-04 06:56] LABS: Bacteria 2+ /hpf (None Seen); Squamous Epithelial Cells - UA 0-5 SEEN /hpf (0-5); Transitional Epithelial - Ur 0-5 SEEN /hpf (0-5); White Blood Cells 10-25 SEEN /hpf (0-5)
[2024-11-04 06:56] LABS: Differential Indicated SCAN CRITERIA MET
[2024-11-04 07:19] LABS: ALB/GLOB Ratio 1.2 RATIO (0.9-2.4); AST(SGOT) 11 U/L (<=37); Alanine Aminotransfer ALT/SGPT 9 U/L (<=46); Albumin, Serum 3.8 g/dL (3.5-5.0); Alkaline Phosphatase 56 U/L (40-129); Anion Gap 12 (5-15); BUN 17 mg/dL (4-19); BUN/Creat Ratio 14.9 RATIO (10-20); Calcium,Total 9.3 mg/dL (7.6-11.0); Carbon Dioxide 23.6 mmol/L (21.0-32.0); Chloride 100 mmol/L (98-108); Creatinine, Serum 1.16 mg/dL (0.70-1.20); EST Glomerular Filtration Rate 74 (>60); Globulin 3.1 g/dL (2.2-4.2); Glucose 139 mg/dL (70-99); Potassium 4.3 mmol/L (3.3-5.1); Protein, Total 6.9 g/dL (5.9-8.4); Sodium Level 136 mmol/L (133-145); Total Bilirubin 1.41 mg/dL (0.00-1.30)
[2024-11-04 07:23] LABS: Lactic Acid 1.8 mmol/L (0.0-2.0)
[2024-11-04 07:43] LABS: Platelet Estimate A (ADEQ); Red Cell Morphology NORM C+C NORMAL (NORM C&C)
--- NOTE | 2024-11-04 07:56 | EX.ED.DYSGE1 ---
HPI History of Present Illness Chief Complaint: Complaint Informant: patient Narrative Narrative: 58-year-old male presenting to the emergency room with a chief complaint of fever and urinary symptoms. Patient states for the past couple days he has had fever at home. He notes urinary frequency and dark urine. He notes he has a history of diabetes as well as Charcot foot as well as a history of atrial fibrillation status post cardiac ablation. He takes apixaban. He states that he has had abnormal renal function but he adjusted his diet and his renal function has returned to normal. Patient denies any vomiting. He denies any pain with this. He has had prior kidney stones but again is not having pain with this [facility] Medical History Polycythemia vera Ulcer of toe of right foot Junctional tachycardia (12/21/20) Chronic foot ulcer Obstructive sleep apnea Hyperlipidemia Morbid obesity Essential hypertension Callus of foot Diabetic foot ulcer Diabetes Arthritis Edema, lower extremity Type 2 diabetes mellitus with diabetic polyneuropathy Perineal abscess Diabetes type 2, uncontrolled Gout Scrotum, abscess Home Medications ?Medication ?Instructions ?Recorded ?Last Taken ?Type metformin 1,000 mg tablet 1,000 mg PO BIDCM 04/26/13 01/15/15 History amlodipine 10 mg tablet 10 mg PO DAILY 30 days #30 tabs 11/09/18 03/11/22 History rosuvastatin 10 mg tablet 10 mg PO DAILY 03/01/22 Unknown History allopurinol 100 mg tablet 100 mg PO DAILY 09/20/22 Unknown History empagliflozin 25 mg tablet 25 mg PO DAILY 01/31/23 Unknown History (Jardiance) lisinopril 5 mg tablet 5 mg PO DAILY 01/31/23 Unknown History metoprolol succinate 50 mg 50 mg PO DAILY #90 tabs 02/23/24 Unknown Rx tablet,extended release 24 hr apixaban 5 mg tablet (Eliquis) 5 mg PO BID #180 TABLETS 04/03/24 Unknown Rx icosapent ethyl 1 gram capsule 2 g (2 x 1 gram) PO BID #360 caps 07/01/24 Unknown Rx (Vascepa) cinnamon bark 500 mg capsule 1,000 mg PO DAILY 10/03/24 Unknown History (Cinnamon) insulin glargine 100 unit/mL (3 25 unit subcut QHS 10/03/24 Unknown History mL) subcutaneous pen (Lantus Solostar U-100 Insulin) magnesium oxide 500 mg capsule 500 mg PO QDAY 10/03/24 Unknown History tirzepatide 15 mg/0.5 mL 15 mg subcut QWEEK 10/03/24 Unknown History subcutaneous pen injector (Mounjaro) cefpodoxime 200 mg tablet 200 mg PO BID 10 days #20 tabs 11/04/24 Unknown Rx Allergy/AdvReac Type Severity Reaction Status Date / Time No Known Allergies Allergy Verified 10/03/24 15:30 Family History Other Diabetes Surgical History History of radiofrequency ablation procedure for cardiac arrhythmia (~09/07/22) History of cardiac radiofrequency ablation (09/07/22) History of cardioversion (03/11/22) Social History Smoking Status: Never smoker alcohol intake: never substance use type: does not use caffeine: Yes Type: carbonated beverages ROS ROS ED Constitutional Constitutional ED: Reports chills and fever(s); Denies weight loss Eyes Eyes: Denies change in vision or diplopia ENT ENT ED: Denies ear pain, rhinorrhea or sore throat Cardiovascular Cardiovascular: Denies chest pain, orthopnea, palpitations or racing heartbeat Respiratory/Chest Respiratory/Chest: Denies cough, dyspnea or orthopnea Gastrointestinal Gastrointestinal: Denies abdominal pain, diarrhea, nausea or vomiting Genitourinary Genitourinary ED: Reports urinary frequency; Denies dysuria or hematuria Musculoskeletal Musculoskeletal: Denies arthralgias or myalgias Integumentary Denies abscess or rash Neurologic Neurologic: Denies headache(s) or weakness Psychiatric Psychiatric: Denies anxiety, depression, suicidal ideation or suicidal thoughts Endocrine Endocrinology: Denies polydipsia, polyphagia or polyuria Allergic/Immunologic Allergic/Immunologic ED: Denies mouth swelling, tongue swelling or urticaria EXAM Physical Exam Const Vital Signs: 11/04/24 06:06 11/04/24 06:08 11/04/24 07:08 Temperature 99.0 F 99.0 F 99.2 F H Temperature Source Oral Oral Oral Pulse Rate 107 H 107 H 109 H Respiratory Rate 22 H 22 H 13 Blood Pressure 158/81 H 158/81 H 142/78 H Blood Pressure Mean 106 106 99 Pulse Ox 98 98 100 Oxygen Delivery Method Room Air Room Air Room Air Positive well nourished and well developed General Appearance ED: well developed and NAD HEENT Reports normocephalic, head/scalp atraumatic and moist mucous membranes Eyes PERRL and EOMs intact bilaterally Neck no lymphadenopathy, supple and no JVD Resp normal respiratory effort and clear to auscultation bilaterally Cardio regular rate, regular rhythm and no murmurs Rate: tachycardic GI normal to inspection, nondistended, normoactive bowel sounds and non-tender Palpation: soft Back/Spine no CVA tenderness and normal ROM Extremity normal to inspection General Extremety ED: Negative for edema General Extremity: Negative for edema Neuro oriented x3 and CN's II-XII intact bilaterally Sensorium / Orientation: alert Motor Exam: strength 5/5 throughout Psych mental status grossly normal Mood & Affect: Negative for depressed or tearful Skin no rashes or lesions noted and no wounds Sepsis Attestation Sepsis Alert: Yes Sepsis Attestation: Sepsis Ruled Out Date exam was performed: 11/04/24 Time exam was performed: 07:30 Possible Source of Sepsis: Genitourinary MDM MDM MDM Narrative Medical decision making narrative: Differential diagnosis includes cystitis/UTI/pyelonephritis kidney stone acute kidney injury sepsis bacteremia diverticulitis Patient's abdominal exam is benign I do not elicit any pain on palpation do not feel diverticulitis is likely. His white count is elevated 18.8 with normal lactic acid. This is at 1.8. Creatinine 1.16. Normal electrolytes INR 1.4 urinalysis is positive nitrates positive leukocyte Estrace 10-25 white blood cells 2+ bacteria it is cloudy. Patient received IV fluids his temperature is 98.6 on my direct oral temperature reading. Using shared decision making I spoke with the patient with the above results. We have obtained blood and urine cultures. He would prefer to be treated at home if possible as compared to admission. I think this is a viable option. I will give him a dose of Rocephin and start him on cefpodoxime. He appears highly competent and understands return instructions. History & Record Review Discussion w/independent historian: Patient Additional record(s) reviewed:: Prior inpatient record, Prior ED visit and Prior labs Lab Data Attestation: I reviewed the patient's lab results. Labs: Laboratory Results - last 24 hr 11/04/24 11/04/24 06:15 06:30 WBC 18.8 H RBC 5.86 Hgb 17.1 H Hct 50.5 MCV 86.2 MCH 29.2 MCHC 33.9 RDW Std Deviation 43.0 RDW Coeff of Steven 13.7 Plt Count 188 MPV 8.9 Immature Gran % (Auto) 0.800 Neut % (Auto) 83.6 H Lymph % (Auto) 5.0 L [place] % (Auto) 10.0 Eos % (Auto) 0.2 Baso % (Auto) 0.4 Absolute Neuts (auto) 15.7 H Absolute Lymphs (auto) 0.93 Nucleated RBC % 0 Platelet Estimate A RBC Morphology NORM C+C PT 17.4 H INR 1.4 APTT 32.1 Sodium 136 Potassium 4.3 Chloride 100 Carbon Dioxide 23.6 Anion Gap 12 BUN 17 Creatinine 1.16 Estim Creat Clear Calc 126.50 Est GFR (MDRD) Non-Af 74 BUN/Creatinine Ratio 14.9 Glucose 139 H Lactic Acid 1.8 Calcium 9.3 Total Bilirubin 1.41 H AST 11 ALT 9 Alkaline Phosphatase 56 Total Protein 6.9 Albumin 3.8 Globulin 3.1 Albumin/Globulin Ratio 1.2 Urine Color Yellow Urine Clarity Cloudy Urine pH 6.0 Ur Specific [place] 1.015 Urine Protein 30 H Urine Glucose (UA) 1000 H Urine Ketones 15 H Urine Occult Blood 25 H Urine Nitrite Positive H Urine Bilirubin Negative Urine Urobilinogen Normal Ur Leukocyte Esterase 500 H Urine RBC 0 SEEN Urine WBC 10-25 SEEN Ur Squamous Epith Cells 0-5 SEEN Ur Transition Epith Cell 0-5 SEEN Urine Bacteria 2+ Urine Mucus 0 SEEN Discharge Plan Triage Chief Complaint: Complaint ED Provider: Juan Owen Dx/Rx/DC Orders Clinical Impression: Acute UTI, Acute febrile illness Instructions: ED Urinary Tract Infections in Men Prescriptions: New cefpodoxime 200 mg tablet 200 mg PO BID 10 Days Qty: 20 0RF Rx Instructions: must administer with a meal/food No Action amlodipine 10 mg tablet 10 mg PO DAILY 30 Days Qty: 30 rosuvastatin 10 mg tablet 10 mg PO DAILY Patient Comments: Take 1 tablet by mouth daily allopurinol 100 mg tablet 100 mg PO DAILY Patient Comments: Take 1 tablet by mouth daily cinnamon bark [Cinnamon] 500 mg capsule 1,000 mg PO DAILY lisinopril 5 mg tablet 5 mg PO DAILY Jardiance 25 mg tablet 25 mg PO DAILY magnesium oxide 500 mg capsule 500 mg PO QDAY insulin glargine [Lantus Solostar U-100 Insulin] 100 unit/mL (3 mL) insulin pen 25 unit subcut QHS Mounjaro 15 mg/0.5 mL pen injector 15 mg subcut QWEEK metformin 1,000 MG tablet 1,000 mg PO BIDCM Patient Comments: DIABETES metoprolol succinate 50 mg tablet extended release 24 hr 50 mg PO DAILY Qty: 90 3RF Eliquis 5 mg tablet 5 mg PO BID Qty: 180 3RF icosapent ethyl [Vascepa] 1 gram capsule 2 g PO BID Qty: 360 3RF Primary Care Provider: Nguyễn Felder Referrals: Nguyễn Felder MD [Primary Care Provider] - 3-5 Days if not improving Activity Restrictions/Additional Instructions: Please return to the emergency department if you are worsening vomiting unable to keep your medications down or have concerns Print Language: Bahamian Disposition Disposition: Home, Self Care
[2024-11-04] MEDS: Ceftriaxone 1 GM/50 ML BAG IV (08:41)
== END 2024-11-04 09:44 | disposition home or self-care (01) ==
PROVIDERS: Emergency Provider Emergency Medicine; PCP Family Medicine; Visit Provider Emergency Medicine
DX: N39.0 Urinary tract infection, site not specified (principal); E11.42 Type 2 diabetes mellitus with diabetic polyneuropathy; I10 Essential (primary) hypertension; Z79.01 Long term (current) use of anticoagulants; E78.5 Hyperlipidemia, unspecified; R50.9 Fever, unspecified
CPT/HCPCS: 80053; 81001; 83605; 85025; 85610; 85730; 87040; 87077; 87086; 87088; 87186; 96365; 96376; 99284; A4216

== ENCOUNTER → 2024-11-14 | Outpatient (CLI) | payer BC, SELFPAY ==
[2024-11-14 18:09] LABS: ALB/GLOB Ratio 1.4 RATIO (0.9-2.4); AST(SGOT) 17 U/L (<=37); Alanine Aminotransfer ALT/SGPT 24 U/L (<=46); Albumin, Serum 3.7 g/dL (3.5-5.0); Alkaline Phosphatase 56 U/L (40-129); Anion Gap 12 (5-15); BUN 18 mg/dL (4-19); BUN/Creat Ratio 17.6 RATIO (10-20); Calcium,Total 9.3 mg/dL (7.6-11.0); Carbon Dioxide 20.6 mmol/L (21.0-32.0); Chloride 102 mmol/L (98-108); Cholesterol 123 mg/dL (<=200); Creatinine, Serum 1.03 mg/dL (0.70-1.20); EST Glomerular Filtration Rate 85 (>60); Globulin 2.6 g/dL (2.2-4.2); Glucose 91 mg/dL (70-99); High Density Lipoprotein 29 mg/dL; Low Density Lipoprotein Calc. 65 mg/dL; Potassium 4.5 mmol/L (3.3-5.1); Protein, Total 6.3 g/dL (5.9-8.4); Sodium Level 135 mmol/L (133-145); Total Bilirubin 0.52 mg/dL (0.00-1.30); Triglycerides 144 mg/dL; Very Low Density Lipoprotein 29 mg/dL (5-40); cholesterol:hdl ratio screen 4.18
[2024-11-14 18:12] LABS: Hemoglobin A1c 5.9 % (<=5.6)
[2024-11-14 18:15] LABS: Absolute Lymphocyte Count 3.14 X10^3/uL (0.83-4.51); Absolute Neutrophil Count 6.9 X10^3/uL (2.0-7.7); Basophil# 0.07 X10^3/uL; Basophil% 0.6 % (0-1); Eosinophils% 2.6 % (0-5); Hemoglobin 17.3 g/dL (13.0-16.5); Lymphocyte # 3.14 X10^3/ul (0.83-4.51); Lymphocyte % 26.9 % (19-41); Mean Corp Hgb Conc 33.9 g/dL (32-36); Mean Corpuscular Hgb 28.6 pg (27.0-32.0); Mean Corpuscular Volume 84.3 fL (80-94); Monocyte# 0.88 X10^3/uL; Monocyte% 7.5 % (0-10); NRBC Flagged by Analyzer 0 % (0-5); Neutrophil # 6.89 X10^3/uL (2.7-7.7); Neutrophil % 58.9 % (47-70); Platelet Count 364 K/mm3 (150-450); RBC Distribution Width CV 13.3 % (11.6-14.6); RBC Distribution Width SD 40.7 fl (35.1-43.9); Red Blood Count 6.05 M/mm3 (4.6-6.2); White Blood Count 11.7 K/mm3 (4.4-11.0)
== END | disposition home or self-care (01) ==
LOC: MFPLAB 16:13
PROVIDERS: PCP Family Medicine; Referring Provider Family Medicine; Visit Provider Family Medicine
DX: E11.8 Type 2 diabetes mellitus with unspecified complications (principal)
CPT/HCPCS: 36415; 80053; 80061; 83036; 85025

== ENCOUNTER 2025-03-15 07:07 | Outpatient (CLI) | payer BC, SELFPAY ==
--- OUTSIDE RECORDS SUMMARY | 2025-03-15 07:12 | XMS RPT_ITS | CCD ---
Author Organization [facility] CliniSyal Care Team Providers Care Ship Liner Name Role Phone JOSHUA MUIR Unavailable Unavailable HARRY KELLY Unavailable Unavailable HARRY KELLY Unavailable Unavailable SABVICTOR MANUEL HUNTLEY Unavailable Unavailable SABOTA, VICTOR MANUEL W Unavailable Unavailable SABYUKO, VICTOR MANUEL W Unavailable Unavailable JESSICA PEÑA Unavailable Unavailable JOSHUA MUIR Unavailable Unavailable Harry Kelly MD Primary Care Provider Harry Felder Primary Care Provider Dr. Mallory Payne Referring Provider Dr. Thad Auguste Attending Provider Dr. Harry Felder Primary Care Provider Dr. Thad Auguste Referring Provider Dr. Thad Auguste Other Provider Dr. Arcadio Villafuerte Attending Provider Dr. Mallory Payne Referring Provider Dr. Thad Auguste Attending Provider Dr. Harry Felder Primary Care Provider Dr. Thad Auguste Referring Provider Dr. Thad Auguste Other Provider Dr. Alvaro Doll Attending Provider Dr. Harry Felder Referring Provider Marcie Cope Attending Provider Unavailable Harry Felder MD Primary Care Provider Thad Auguste MD Unavailable Dr. Harry Felder Primary Care Provider [phone] Leonora Hannah Attending Provider Unavailable MOLINA, THAD S Referring Unavailable HARRY FELDER Primary Care Unavailable NITA, KENYON G Attending Unavailable MOLINA, THAD S Referring Unavailable BRADFORD, HARRY Primary Care Unavailable NITA, KENYON G Admitting Unavailable NITA, KENYON G Attending Unavailable BRADFORD, HARRY Primary Care Unavailable NITA, KENYON G Attending Unavailable HARRY FELDER Referring Unavailable BRADFORD, HARRY Primary Care Unavailable NITA, KENYON G Attending Unavailable BRADFORD, HARRY Primary Care Unavailable NITA, KENYON G Referring Unavailable NITA, KENYON G Attending Unavailable BRADFORD, HARRY Primary Care Unavailable NITA, KENYON G Referring Unavailable Harry Felder MD Primary Care Provider Thad Auguste MD Unavailable Dr. Harry Felder Primary Care Provider [phone] Leonora Hannah Attending Provider Unavailable Dr. Harry Felder Primary Care Provider Dr. Harry Felder Referring Provider CLAIRE Weeks Attending Provider CLAIRE Cooper Attending Provider Dr. Ludwig Sprague Attending Provider [phone] CLAIRE Weeks Referring Provider Dr. Harry Felder Primary Care Provider Dr. Harry Felder Referring Provider Roof VOICE AND DATA TECHNICIAN, VOICE AND DATA TECHNICIAN-C Harry Lewis Attending Provider Dr. Harry Felder Primary Care Provider Dr. Harry Felder Referring Provider Roof VOICE AND DATA TECHNICIAN, VOICE AND DATA TECHNICIAN-C Harry Lewis Attending Provider Harry Felder MD Primary Care Provider HARRY FELDER Primary Care Unavailable HARRY FELDER Primary Care Unavailable VANESSA GRULLON Referring Unavailable HARRY FELDER Primary Care Unavailable VIMAL ELISA Referring Unavailable HARRY FELDER Primary Care Unavailable HARRY FELDER Primary Care Unavailable Bradford DANIEL, Dr. Harry Mcdonald Primary Care Provider Bradford DANIEL, Dr. Harry Mcdonald Attending Provider Bradford DANIEL, Dr. Harry Mcdonald Referring Provider Bradford DANIEL, Dr. Harry Mcdonald Primary Care Provider [phone] Bradford DANIEL, Dr. Harry Mcdonald Attending Provider Bradford DANIEL, Dr. Harry Mcdonald Referring Provider [phone] Molina DANIEL, Dr. Oneil Attending Provider Dr. Juan Owen DO Emergency Provider Dr. Juan Owen DO Attending Provider Harry Felder Attending Unavailable Harry Felder Referring Unavailable Harry Felder Primary Care Unavailable Harry Felder Attending Unavailable Harry Felder Primary Care Unavailable Harry Felder Referring Unavailable Thad Auguste Attending Unavailable Harry Felder Primary Care Unavailable Harry Felder Attending Unavailable Harry Felder Referring Unavailable Harry Felder Primary Care Unavailable Harry Felder Primary Care Unavailable Juan Owen Attending Unavailable Harry Felder Referring Unavailable Harry Felder Primary Care Unavailable Harry Felder Attending Unavailable Harry Felder Attending Unavailable Harry Felder Referring Unavailable Harry Felder Primary Care Unavailable Harry Felder Attending Unavailable Harry Felder Referring Unavailable Harry Felder Primary Care Unavailable Medications Current Medications Medication Drug Class(es) Dates Sig (Normalized) Sig (Original) [id number] actuat albuterol 0.09 mg/actuat metered dose inhaler (1 source) beta2-Adrenergic Agonist Start: 11-27-2023 take 2 puff(s) by inhalation every four hours as needed for wheezing albuterol HFA (PROVENTIL HFA, VENTOLIN HFA) 90 mcg/actuation inhaler Indications: Subacute cough , Wheezing Inhale 2 Puffs as instructed every 4 hours as needed for wheezing/shortness of breath. 1 Each 0 11/27/2023 Active allopurinol 100 mg oral tablet (20 sources) Xanthine Oxidase Inhibitor Start: 09-20-2022 take 1 tablet by mouth once daily Allopurinol 100 mg tablet Active 100 mg PO DAILY September 20, 2022 12:00am Start: 09-08-2022 End: 09-10-2022 take 100 mg by mouth once daily 100 mg, Oral, DAILY, F irst dose on Rama 09/08/22 at 0900, Until Discontinued Start: 11-09-2018 End: 05-15-2019 Allopurinol 300 mg tablet Discontinued PO November 09, 2018 12:00am May 15, 2019 10:03am Start: 11-09-2018 End: 08-30-2021 Allopurinol Discontinued PO November 09, 2018 12:00am May 15, 2019 10:03am Start: 04-26-2013 End: 05-15-2019 take 3 tablets by mouth once daily at mealtime Allopurinol 100 MG tablet Discontinued 300 mg PO DAILY WITH MEALS April 26, 2013 1:00am May 15, 2019 10:03am Start: 04-26-2013 End: 05-15-2019 take 300 mg by mouth once daily at mealtime Allopurinol Discontinued 300 MG PO DAILY WITH MEALS April 26, 2013 1:00am May 15, 2019 10:03am Comment on above: Take 300 mg by mouth once daily. Take 100 mg by mouth once daily. amLODIPine 10 mg oral tablet (20 sources) Dihydropyridine Calcium Channel Oscar Start: End: take 1 tablet by mouth once daily Amlodipine 10 mg tablet Active 10 mg PO DAILY November 09, 2018 12:00am Start: 01-21-2015 End: 11-02-2017 take 1 tablet by mouth once daily Amlodipine 10 MG tablet Discontinued 10 mg PO DAILY January 21, 2015 12:00am November 02, 2017 9:52am Comment on above: Take 10 mg by mouth once daily. amLODIPine 10 mg / atorvastatin 10 mg oral tablet (6 sources) Dihydropyridine Calcium Channel Oscar, HMG-CoA Reductase Inhibitor amLODIPine-Atorvas tatin 10-10 mg per tablet Active amoxicillin 875 mg / clavulanate 125 mg oral tablet (2 sources) Penicillin-class Antibacterial Start: 11-16-19 24 End: 11-21-19 24 take 1 tablet by mouth twice daily amoxicillin-clavul anate potassium (AUGMENTIN) 875-125 mg per tablet Take 1 tablet by mouth two times a day for 5 days. 10 tablet 0 11/16/2023 11/21/2023 Active benzonatate 100 mg oral capsule (5 sources) Non-narcotic Antitussive Start: 11-16-19 24 take 1 capsule by mouth every eight hours as needed for cough and cough benzonatate (TESSALON PERLES) 100 mg capsule Indications: Acute cough Take 1 capsule by mouth three times a day as needed for cough. 21 capsule 11/16/2023 Active cefpodoxime 200 mg oral tablet (2 sources) Cephalosporin Antibacterial Start: 11-05-19 take 1 tablet by mouth twice daily at mealtime Cefpodoxime 200 mg tablet Active 200 mg PO TWICE A DAY 31 03November 04, 2024 12:00am must administer with a meal/food cephalexin 500 mg oral capsule (1 source) Cephalosporin Antibacterial Start: 10-28-19 End: 11-04-19 24 take 1 capsule by mouth four times daily cephALEXin (KEFLEX) 500 mg capsule Take 1 capsule by mouth four times daily for 7 days. 28 capsule 0 10/28/2023 11/04/2023 Active Cinnamon Preparation (15 sources) Non-Standardized Food Allergenic Extract Start: 11-10-19 15 take 2000 mg by mouth once daily Cinnamon Active 2000 MG PO DAILY November 09, 2014 6:46am Start: 11-09-2014 End: 09-20-2022 take 2000 mg by mouth once daily Cinnamon Discontinued 2000 mg PO DAILY November 09, 2014 12:00am September 20, 2022 2:08pm Start: 11-09-2014 End: 09-20-2022 take 2000 mg by mouth once daily Cinnamon Discontinued 2000 MG PO DAILY November 08, 2014 11:00pm September 20, 2022 1:08pm Start: 11-09-2014 End: 09-20-2022 take 2000 mg by mouth once daily Cinnamon Discontinued 2000 MG PO DAILY November 09, 2014 12:00am September 20, 2022 2:08pm Start: 11-09-2014 take 2000 mg by mout h once daily Cinnamon Active 2000 MG PO DAILY November 08, 2014 11:00pm Start: 11-09-2014 take 2000 mg by mout h once daily Cinnamon Active 2000 MG PO DAILY November 09, 2014 12:00am doxycycline monohydrate 100 mg oral tablet (18 sources) Tetracycline-class Drug Start: 11-16-2023 End: 11-21-2023 take 1 tablet by mouth twice daily doxycycline monohydrate 100 mg tablet Take 1 tablet by mouth two times a day for 5 days. 10 tablet 0 11/16/2023 11/21/2023 Active Start: 10-28-2023 End: 11-04-2023 take 1 tablet by mouth twice daily doxycycline (VIBRA-TABS) 100 mg tablet Take 1 tablet by mouth two times a day for 7 days. 14 tablet 0 10/28/2023 11/04/2023 Active Start: 01-15-2015 End: 01-21-2015 take 100 mg by mouth twice daily Doxycycline Discontinued 100 mg PO TWICE A DAY January 15, 2015 12:00am January 21, 2015 12:46pm insulin detemir (20 sources) Insulin Analog Start: 02-03-2023 Insulin Detemi r U-100 Active 43 UNIT SC AT BEDTIME February 03, 2023 2:24pm Start: 02-03-2023 Insulin Detemi r U-100 Active 43 UNIT SC AT BEDTIME February 03, 2023 3:24pm Start: 09-07-2022 End: 09-10-2022 inject 47 [IU] by subcutaneous injection once daily at bedtime 47 Units, Subcutaneous, DAILY AT BEDTIME, First dose on Mon09/07/22 at 2100, Until Discontinued Start: 11-09-2018 End: 05-15-2019 Insulin Detemir U-100 100 un it/mL (3 mL) insulin pen Discontinued SC November 09, 2018 12:00am May 15, 2019 10:06am Start: 11-09-2018 End: 05-15-2019 Insulin Detemir U-100 Discontinued SC November 09, 2018 12:00am May 15, 2019 10:06am Start: 11-02-2017 End: 02-03-2023 Insulin Detemir U-100 100 UNITS/ML insulin pen Discontinued 47 U SC AT BEDTIME November 02, 2017 9:55am February 03, 2023 3:25pm Start: 11-02-2017 End: 02-03-2023 Insulin Detemir U-100 Discontinued 47 UNITS SC AT BEDTIME November 02, 2017 9:55am February 03, 2023 3:25pm Start: 01-21-2015 End: 11-02-2017 Insulin Detemir U-100 (Levem ir (Bkc)) 100 UNITS/ML Insuln.Pen Discontinued 20 U SC TWICE A DAY 2 January 21, 2015 12:00am November 02, 2017 9:55am insulin detemir (LEVEMIR FLEXTOUCH U-100 INSULN SUBCUTANEOUS) Active insulin detemir (Levemir FlexPen) 100 UNIT/ML Solution Pen-injector injection Inject 47 Units under the skin at bedtime. 0 Active insulin detemir (LEVEMIR FLEXTOUCH U-100 INSULN SUBCUTANEOUS) 3 ml insulin glargine 100 unt/ml pen injector (2 sources) Insulin Analog Start: 10-03-2024 Insulin Glargi ne (Lantus Solostar U-100 Insulin) 100 unit/mL (3 mL) insulin pen Active 25 U SC AT BEDTIME October 03, 2024 12:00am lisinopril 5 mg oral tablet (20 sources) Angiotensin Converting Enzyme Inhibitor Start: 01-31-2023 take 1 tablet by mouth once daily Lisinopril 5 mg tablet Active 5 mg PO DAILY January 31, 2023 12:00am Start: 04-26-2013 End: 01-21-2015 take 4 tablets by mouth at bedtime Lisinopril 5 MG tablet Discontinued 20 mg PO AT BEDTIME April 26, 2013 1:00am January 21, 2015 12:46pm Start: 04-26-2013 End: 01-21-2015 take 20 mg by mouth at bedtime Lisinopril Discontinued 20 MG PO AT BEDTIME April 26, 2013 1:00am January 21, 2015 12:46pm End: 08-30-2021 take 1 tablet by mouth once daily lisinopril 20 mg tablet Take 20 mg by mouth once daily. 0 08/30/2021 Discontinued Comment on above: Take 20 mg by mouth once daily. magnesium oxide 500 mg oral capsule (20 sources) Start: 10-03-2024 take 1 capsule by mouth once daily Magnesium Oxide 500 mg capsule Active 500 mg PO daily October 03, 2024 12:00am Start: 09-08-2022 End: 09-10-2022 magnesium oxide (MAG-OX) tab let 800 mg Start: 12-21-2020 End: 06-03-2021 take 1 capsule by mouth once daily Magnesium Oxide 400 mg magnesium capsule Discontinued 400 mg PO DAILY December 21, 2020 12:00am June 03, 2021 11:08am Magnesium Oxide 500 mg magnesium tab Take by mouth. Active magnesium sulfate 0.0277 meq/ml / potassium sulfate 0.0374 meq/ml / sodium sulfate 0.257 meq/ml oral solution (11 sources) Start: 08-30-2021 sodium sulfate -potassium sulfate-magnesium sulfate (SUPREP BOWEL PREP KIT) 17.5-3.13-1.6 gram oral liquid Take according to instructions given with bowel prep kit 1 Kit 08/30/2021 Active Start: 08-30-2021 sodium sulfate -potassium sulfate-magnesium sulfate (SUPREP BOWEL PREP KIT) 17.5-3.13-1.6 gram oral liquid Take according to instructions given with bowel prep kit 1 Kit 0 08/30/2021 Active Comment on above: Take according to in structions given with bowel prep kit 24 hr metoprolol succinate 50 mg extended release oral tablet (20 sources) beta-Adrenergic Oscar Start: End: take 1 tablet by mouth once daily Metoprolol Succinate 50 mg tablet extended release 24 hr Active 50 mg PO DAILY February 23, 2024 8:11am Start: 01-09-2023 End: 05-01-2023 take 1 tablet by mouth twice daily Metoprolol Succinate 25 mg tablet extended release 24 hr Discontinued 25 mg PO TWICE A DAY January 09, 2023 1:27pm May 01, 2023 12:31pm Start: 01-02-2023 End: 01-09-2023 take 1 tablet by mouth once daily Metoprolol Succinate 25 mg tablet extended release 24 hr Discontinued 25 mg PO DAILY January 02, 2023 12:00am January 09, 2023 1:28pm predniSONE 20 mg oral tablet (6 sources) Start: 11-27-2023 End: 12-02-2023 take 2 tablets by mouth once daily predniSONE (DELTASONE) 20 mg tablet Indications: Subacute cough , Wheezing Take 2 tablets by mouth once daily for 5 days. 10 tablet 0 11/27/2023 12/02/2023 Active Start: 11-16-2023 End: 11-27-2023 predniSONE (DELTASONE) 10 mg tablet Indications: Acute cough Take 4 tabs daily for 3 days, then 2 tabs daily for 3 days, then 1 tab daily for 3 days with food. 21 tablet 11/16/2023 11/27/2023 Discontinued rosuvastatin calcium 10 mg oral tablet (20 sources) HMG-CoA Reductase Inhibitor Start: 03-01-2022 End: 09-10-2022 take 1 tablet by mouth once daily Rosuvastatin 10 mg tablet Active 10 mg PO DAILY March 01, 2022 12:00am Comment on above: Take 10 mg by mouth once daily. sotalol hydrochloride 80 mg oral tablet (15 sources) Antiarrhythmic Start: 11-21-2022 take 1 tablet by mouth every twelve hours Sotalol 80 MG tablet Take 1 tablet by mouth every 12 hours. 60 tablet 0 11/21/2022 Active Start: 09-20-2022 End: 01-02-2023 take 1 tablet by mouth twice daily Sotalol 80 mg tablet Discontinued 80 mg PO TWICE A DAY September 20, 2022 12:00am January 02, 2023 11:20am Start: 09-09-2022 End: 09-10-2022 take 1 tablet by mouth every twelve hours Sotalol 80 MG tablet Take 1 tablet by mouth every 12 hours. 60 tablet 3 09/10/2022 Active Start: 09-08-2022 End: 09-09-2022 take 1 tablet by mouth every twelve hours Sotalol (BETAPACE) tablet 120 mg Tirzepatide (Mounjaro) 15 mg /0.5 mL pen injector (2 sources) Start: 10-03-2024 Tirzepatide (M ounjaro) 15 mg/0.5 mL pen injector Active 15 mg SC EVERY WEEK October 03, 2024 12:00am Completed/Discontinued Medications Medication Drug Class(es) Dates Sig (Normalized) Sig (Original) acetaminophen 325 mg / oxyCODONE hydrochloride 5 mg oral tablet (15 sources) Opioid Agonist Start: 01-21-2015 End: 11-02-2017 Oxycodone-Acetamino phen 1 TABLET tablet Discontinued 1 - 2 {tbl} PO EVERY 6 HOURS NEEDED as needed for Pain January 21, 2015 12:00am November 02, 2017 9:54am Start: 01-21-2015 End: 11-02-2017 take 1 tablet by mouth every six hours as needed Oxycodone-Acetaminophen Discontinued 1 - 2 TABLET PO EVERY 6 HOURS NEEDED January 21, 2015 12:00am November 02, 2017 9:54am apixaban 5 mg oral tablet (20 sources) Factor Xa Inhibitor Start: 09-07-2022 End: 09-10-2022 take 5 mg by mouth every twelve hours 5 mg, Oral, EVERY 12 HOURS, First dose on Mon09/07/22 at 2200, Until Discontinued Due to the rapid onset of action of apixaban, no overlap is needed with other anticoagulants (e.g. enoxaparin, heparin). Indications: Atrial Fibrillation Start: 12-21-2020 End: 04-03-2024 Apixaban (Eliquis) 5 mg tabl et Discontinued 0 .ROUTE .COMPLEX 180 March 29, 2023 10:43am April 03, 2024 7:53am TAKE 1 TABLET TWICE A DAY aspirin 81 mg chewable tablet (20 sources) Platelet Aggregation Inhibitor, Nonsteroidal Anti-inflammatory Drug Start: 09-11-2022 End: 01-31-2023 take 1 tablet by mouth once daily Aspirin 81 mg tablet,chewable Discontinued 81 mg PO DAILY September 20, 2022 12:00am January 31, 2023 3:26pm Start: 09-07-2022 End: 09-10-2022 aspirin chewable tablet 81 m g Start: 11-02-2017 End: 12-21-2020 take 1 tablet by mouth once daily Aspirin 81 MG tablet,chewable Discontinued 81 mg PO DAILY@0800 November 02, 2017 12:00am December 21, 2020 3:28pm calcium ascorbate 500 mg oral tablet (15 sources) Start: 12-21-2020 End: 09-20-2022 take 1 tablet by mouth once daily Ascorbate Calcium (Vitamin C) 500 mg tablet Discontinued 500 mg PO DAILY December 21, 2020 12:00am September 20, 2022 2:09pm carbamide peroxide 65 mg/ml otic solution (9 sources) Start: 01-18-2023 End: 01-31-2023 Carbamide Peroxide (Debrox) 6.5 % drops Discontinued 5 NMA RIGHT EAR DAILY 15 4 January 18, 2023 12:00am January 31, 2023 3:20pm Start: 01-18-2023 End: 01-31-2023 Carbamide Peroxide (Debrox) 6.5 % drops Discontinued 5 DRP RIGHT EAR DAILY 15 4 January 18, 2023 12:00am January 31, 2023 3:20pm carvedilol 12.5 mg oral tablet (20 sources) alpha-Adrenergic Oscar, beta-Adrenergic Oscar Start: 09-07-2022 End: 09-09-2022 take 1 tablet by mouth twice daily carveDILOL 12.5 MG tablet Take 1 tablet by mouth 2 times daily. 0 09/07/2022 09/09/2022 Discontinued (Stop Taking at Discharge) Start: 07-05-2021 End: 09-20-2022 take 1 tablet by mouth twice daily at mealtime Carvedilol 25 mg tablet Discontinued 25 mg PO TWICE A DAY 180 April 07, 2022 10:37am September 20, 2022 2:09pm must administer with a meal/food Start: 12-21-2020 End: 07-05-2021 take 1 tablet by mouth twice daily at mealtime Carvedilol (Coreg) 12.5 mg tablet Discontinued 12.5 mg PO TWICE A DAY 60 April 13, 2021 2:42pm July 05, 2021 10:55am must administer with a meal/food cefadroxil 1000 mg oral tablet (15 sources) Cephalosporin Antibacterial Start: 01-21-2015 End: 11-02-2017 take 1 tablet by mouth twice daily Cefadroxil 1 GM tablet Discontinued 1 g PO TWICE A DAY 14 January 21, 2015 12:00am November 02, 2017 9:52am cinnamon bark 500 mg oral capsule (20 sources) Start: 09-20-2022 End: 10-03-2024 take 1 capsule by mouth once daily Cinnamon Bark (Cinnamon) 500 mg capsule Discontinued 500 mg PO DAILY May 29, 2023 4:26pm October 03, 2024 3:32pm Start: 09-07-2022 take 2 capsules by m outh once daily Cinnamon 500 MG capsule Take 2 capsules by mouth daily. 0 09/07/2022 Active dapagliflozin 5 mg oral tablet (1 source) Sodium-Glucose Cotransporter 2 Inhibitor Start: 09-07-2022 End: 09-10-2022 take 5 mg by mouth once daily 5 mg, Oral, DAILY, First dose on Mon09/07/22 at 1700, Until Discontinued empagliflozin 25 mg oral tablet (20 sources) Sodium-Glucose Cotransporter 2 Inhibitor Start: 11-02-2017 End: 01-31-2023 take 1 tablet by mouth once daily Empagliflozin 25 mg tablet Discontinued 25 mg PO DAILY December 21, 2020 3:06pm January 31, 2023 3:28pm glimepiride 4 mg oral tablet (20 sources) Sulfonylurea Start: 11-09-2018 End: 05-15-2019 Glimepiride 4 mg tablet Discontinued PO 30 November 09, 2018 12:00am May 15, 2019 10:05am Start: 11-02-2017 End: 05-15-2019 take 1 tablet by mouth once daily Glimepiride 4 MG tablet Discontinued 4 mg PO DAILY November 02, 2017 12:00am May 15, 2019 10:05am 1 ml HYDROmorphone hydrochloride 1 mg/ml cartridge (1 source) Opioid Agonist Start: 09-07-2022 End: 09-10-2022 HYDROmorphone (DILAUDID) injection 0.2 mg icosapent ethyl 1000 mg oral capsule (20 sources) Start: 12-21-2020 End: 07-01-2024 Icosapent Ethyl (Vascepa) 1 gram capsule Discontinued 2 g PO TWICE A DAY 360 November 07, 2023 11:54am July 01, 2024 11:41am icosapent ethyl (VASCEPA) 1 gram capsule Active Comment on above: Take 2 g by mouth tw ice daily with meals. Insulin Detemir U-100 100 unit/mL (3 mL) insulin pen (4 sources) Start: 02-03-2023 End: 10-03-2024 Insulin Detemir U-100 100 unit/mL (3 mL) insulin pen Discontinued 43 U SC AT BEDTIME February 03, 2023 3:24pm October 03, 2024 3:32pm Start: 02-03-2023 Insulin Detemi r U-100 100 unit/mL (3 mL) insulin pen Active 43 U SC AT BEDTIME February 03, 2023 3:24pm insulin lispro 100 unt/ml injectable solution (1 source) Insulin Analog Start: 09-07-2022 End: 09-07-2022 Insulin lispro (HUMALOG) injection 4 Units Insulin lispro (HUMALOG) injection (1 source) Start: 09-07-2022 End: 09-10-2022 Insulin lispro (HUMALOG) injection iohexol (OMNIPAQUE) 350 MG/ML injection 1-171 mL (1 source) Start: 09-07-2022 End: 09-07-2022 iohexol (OMNIPAQUE) 350 MG/ML injection 1-171 mL 50 ml magnesium sulfate 80 mg/ml injection (1 source) Start: 09-08-2022 End: 09-10-2022 Magnesium sulfate 4 g in sterile water 50 ml premix IVPB meclizine hydrochloride 25 mg oral tablet (9 sources) Antiemetic Start: 01-18-2023 End: 05-29-2023 take 1 tablet by mouth four times daily as needed for dizziness Meclizine 25 mg tablet Discontinued 25 mg PO 4 TIMES DAILY NEEDED as needed for Dizziness January 18, 2023 12:00am May 29, 2023 4:27pm metFORMIN hydrochloride 500 mg oral tablet (20 sources) Biguanide Start: 09-08-2022 End: 09-10-2022 metFORMIN (GLUCOPHAGE) tablet 1,000 mg Start: 11-09-2018 End: 05-15-2019 Metformin 1,000 mg tablet Discontinued 1 PO 60 November 09, 2018 12:00am May 15, 2019 10:07am Start: 04-26-2013 End: 05-15-2019 take 1 tablet by mouth twice daily at mealtime Metformin 1,000 MG tablet Active 1000 mg PO TWICE DAILY WITH MEALS April 26, 2013 1:00am take 2 tablets by mo [facility] twice daily at mealtime metFORMIN 500 mg tablet Take 1,000 mg by mouth twice daily with meals. Active Comment on above: Take 1,000 mg by luciano twice daily with meals. metroNIDAZOLE 500 mg oral tablet (15 sources) Nitroimidazole Antimicrobial Start: 015 End: 018 take 1 tablet by mouth every eight hours at mealtime Metronidazole 500 MG tablet Discontinued 500 mg PO Q8H January 21, 2015 12:00am November 02, 2017 9:53am take with food every 8 hrs Multivitamin capsule (1 source) End: take 1 capsule by mouth once daily Multivitamin capsule Take 1 capsule by mouth once daily. 0 08/30/2021 Discontinued Comment on above: Take 1 capsule by mo ut once daily. Multivitamin With Folic Acid (11 sources) Start: 013 End: take 1 tablet by mouth once daily Multivitamin With Folic Acid Discontinued 1 TABLET PO DAILY April 26, 2013 8:25am June 03, 2021 11:08am Start: 04-26-2013 End: 06-03-2021 take 1 tablet by mouth once daily Multivitamin With Folic Acid Discontinued 1 TABLET PO DAILY April 26, 2013 12:00am June 03, 2021 10:08am Start: 04-26-2013 End: 06-03-2021 take 1 tablet by mouth once daily Multivitamin With Folic Acid Discontinued 1 TABLET PO DAILY April 26, 2013 1:00am June 03, 2021 11:08am Multivitamin With Folic Acid 1 TABLET tablet (4 sources) Start: 04-26-2013 End: 06-03-2021 take 1 tablet by mouth once daily Multivitamin With Folic Acid 1 TABLET tablet Discontinued 1 {tbl} PO DAILY April 26, 2013 1:00am June 03, 2021 11:08am Warren 4-Ddx-Wry-Fish Oil (11 sources) Start: 04-26-2013 End: 12-21-2020 take 1200 mg by mouth twice daily Warren 7-Geh-Tbi-Fish Oil Discontinued 1200 MG PO TWICE A DAY April 26, 2013 8:25am December 21, 2020 3:33pm Start: 04-26-2013 End: 12-21-2020 take 1200 mg by mouth twice daily Warren 1-Xly-Jxt-Fish Oil Discontinued 1200 MG PO TWICE A DAY April 26, 2013 12:00am December 21, 2020 2:33pm Start: 04-26-2013 End: 12-21-2020 take 1200 mg by mouth twice daily Warren 8-Pcg-Thg-Fish Oil Discontinued 1200 MG PO TWICE A DAY April 26, 2013 1:00am December 21, 2020 3:33pm Warren 1-Fwh-Glb-Fish Oil 500 MG capsule,delayed release(DR/EC) (4 sources) Start: 04-26-2013 End: 12-21-2020 Warren 3-Qbq-Atj-Fish Oil 500 MG capsule,delayed release(DR/EC) Discontinued 1200 mg PO TWICE A DAY April 26, 2013 1:00am December 21, 2020 3:33pm omega-3 acid ethyl esters (assisted) 1000 mg oral capsule (1 source) Start: 09-07-2022 End: 09-10-2022 2 g, Oral, 2 TIMES DAILY, First dose on Mon09/07/22 at 1700, Until Discontinued Avoid using styrofoam cup during administration Chqhi-8-JBC-EPA-Fish Oil 1,200 (144-216) mg cap (1 source) End: 08-30-2021 Hsxqz-9-JVL-EPA-Fish Oil 1,200 (144-216) mg cap Take by mouth twice daily. 0 08/30/2021 Discontinued Comment on above: Take by mouth twice daily. 2 ml ondansetron 2 mg/ml injection (1 source) Serotonin-3 Receptor Antagonist Start: 09-07-2022 End: 09-07-2022 Ondansetron 4mg/2ml (ZOFRAN) injection 4 mg pantoprazole 40 mg delayed release oral tablet (13 sources) Proton Pump Inhibitor Start: 09-11-2022 End: 01-31-2023 take 1 tablet by mouth once daily Pantoprazole 40 mg tablet,delayed release (DR/EC) Discontinued 40 mg PO DAILY September 20, 2022 12:00am January 31, 2023 3:21pm Start: 09-08-2022 End: 09-10-2022 Pantoprazole (PROTONIX) tabl et DR 40 mg microencapsulated potassium chloride 20 meq extended release oral tablet (2 sources) Start: 09-08-2022 End: 09-10-2022 Potassium chloride (K-DUR) tablet ER 20 mEq Start: 09-08-2022 End: 09-10-2022 Potassium chloride (K-DUR) t ablet ER 40-60 mEq 2 ml prochlorperazine 5 mg/ml injection (1 source) Phenothiazine Start: 09-07-2022 End: 09-10-2022 take 5 mg intravenously every hour as needed Prochlorperazine (COMPAZINE) injection 5 mg 1000 ml sodium chloride 9 mg/ml injection (2 sources) Start: 09-07-2022 End: 09-10-2022 Sodium chloride 0.9% IV solution 500 mL Start: 09-07-2022 End: 09-07-2022 Sodium chloride (PF) 0.9 % i njection 1-100 mL Problems Active Problems Problem Classification Problem Date Documented Da te Episodic/Chronic Administrative/social admission (15 sources) Patient encounter status; Translations: [Persons encountering health services in other specified circumstances] 12-18-2020 Episodic Cardiac dysrhythmias (20 sources) AV junctional (vanda) tachycardia; Translations: [Supraventricular tachycardia] Onset: 12-21-2020 Resolved: 09-07-2022 Chronic Comment on above: Went back into a fib <1 week after DCCV Chronic ulcer of skin (20 sources) Non-pressure chronic ulcer of other part of right foot with fat layer exposed; Translations: [Ulcer of right foot with fat layer exposed] Chronic Conditions associated with dizziness or vertigo (9 sources) Vertigo; Translations: [Dizziness and giddiness] 01-18-2023 Episodic Deficiency and other anemia (1 source) Other hemoglobinopathies; Translations: [Other hemoglobinopathies] Onset: 09-12-2024 Chronic Diabetes mellitus with complications (20 sources) Type 2 diabetes mellitus; Translations: [Type 2 diabetes mellitus with diabetic polyneuropathy] Onset: 12-20-2021 Chronic Disorders of lipid metabolism (20 sources) Hyperlipidemia; Translations: [Hyperlipidemia, unspecified] Onset: 12-20-2021 Chronic Essential hypertension (20 sources) Essential hypertension; Translations: [Essential (primary) hypertension] Chronic Fever of unknown origin (2 sources) Fever; Translations: [Fever, unspecified] 11-04-2024 Episodic Gout and other crystal arthropathies (15 sources) Gout; Translations: [Gout, unspecified] 12-18-2020 Chronic Inflammatory conditions of male genital organs (15 sources) Abscess of scrotum; Translations: [Inflammatory disorders of scrotum] 12-18-2020 Episodic Malaise and fatigue (15 sources) Fatigue; Translations: [Other fatigue] 12-18-2020 Episodic Neoplasms of unspecified nature or uncertain behavior (12 sources) Polycythemia vera (clinical); Translations: [Polycythemia vera] 03-01-2022 Chronic Nonspecific chest pain (15 sources) Chest pain; Translations: [Chest pain, unspecified] 03-01-2022 Episodic Occlusion or stenosis of precerebral arteries (19 sources) Internal carotid artery stenosis; Translations: [Occlusion and stenosis of unspecified carotid artery] 01-18-2023 Chronic Open wounds of head; neck; and trunk (15 sources) Open wound of perineum with complication; Translations: [Open wound of perineum with complication] 12-18-2020 Episodic Other ear and sense organ disorders (9 sources) Impacted cerumen; Translations: [Impacted cerumen, unspecified ear] 01-18-2023 Episodic Other injuries and conditions due to external causes (15 sources) Delayed healing of wound; Translations: [Other injury of unspecified body region, subsequent encounter] 12-18-2020 Episodic Other lower respiratory disease (3 sources) Cough; Translations: [Acute cough] 11-16-2023 Episodic Other lower respiratory disease (1 source) Wheezing; Translations: [Wheezing] 11-27-2023 Episodic Other male genital disorders (1 source) Disorder of male genital organs, unspecified; Translations: [Disorder of male genital organs, unspecified] Onset: 11-06-2024 Episodic Other nutritional; endocrine; and metabolic disorders (20 sources) Morbid obesity; Translations: [Morbid (severe) obesity due to excess calories] Onset: 12-20-2021 Chronic Other nutritional; endocrine; and metabolic disorders (1 source) Morbid (severe) obesity due to excess calories; Translations: [Morbid obesity] Chronic Other screening for suspected conditions (not mental disorders or infectious disease) (14 sources) History of polyp of colon; Translations: [Encounter for screening for malignant neoplasm of colon] Onset: 12-20-2021 Episodic Other skin disorders (15 sources) Foot callus; Translations: [Corns and callosities] 12-18-2020 Episodic Other upper respiratory infections (15 sources) Pharyngitis; Translations: [Acute pharyngitis, unspecified] 11-01-2018 Episodic Pneumonia (except that caused by tuberculosis or sexually transmitted disease) (1 source) Community acquired pneumonia; Translations: [Pneumonia, unspecified organism] 11-16-2023 Episodic Residual codes; unclassified (10 sources) Obstructive sleep apnea syndrome; Translations: [Obstructive sleep apnea (adult) (pediatric)] Onset: 12-20-2021 Chronic Residual codes; unclassified (15 sources) Edema of lower extremity; Translations: [Localized edema] 12-18-2020 Episodic Skin and subcutaneous tissue infections (16 sources) Abscess of perineum; Translations: [Cutaneous abscess of perineum] 12-18-2020 Episodic Unclassified (2 sources) Longstanding persistent atrial fibrillation; Translations: [Longstanding persistent atrial fibrillation] Onset: 09-07-2022 Unclassified (2 sources) Other persistent atrial fibrillation; Translations: [Other persistent atrial fibrillation] Onset: 03-22-2022 Unclassified (1 source) Acute cough; Translations: [Acute cough] Onset: 11-16-2023 Urinary tract infections (2 sources) Acute urinary tract infection; Translations: [Urinary tract infection, site not specified] 11-04-2024 Episodic Past or Other Problems Problem Classification Problem Date Documented Date Episodic/Chronic Cardiac dysrhythmias (4 sources) Palpitations; Translations: [Palpitations] Onset: 09-07-2022 Episodic Other aftercare (4 sources) Taking high risk medication; Translations: [Other group home (current) drug therapy] Onset: 09-08-2022 Episodic Other aftercare (2 sources) Other group home (current) drug therapy; Translations: [Other group home (current) drug therapy] Onset: 09-07-2022 Episodic Residual codes; unclassified (9 sources) History of radiofrequency ablation operation for arrhythmia; Translations: [Other specified postprocedural states] Onset: 08-10-2022 10-13-2022 Episodic Comment on above: Atrial fibrillation W PVI @ [facility] Dr. Moya 09/07/22 Unclassified (15 sources) Cellulitis of the perineal area 12-18-2020 Unclassified (1 source) Onset: 09-07-2022 09-07-2022 Results Test Name Value Interpretation Reference Range Facility Absolute lymphocyte countOrd ered By: Harry Felder on 2024 Lymphocytes Auto (Unsp spec) [#/Vol] 3.14 10*3/uL 0.83-4.51 [facility] Absolute neutrophil countOrd ered By: Harry Felder on 2024 Neutrophils (Bld) [#/Vol] 6.9 10*3/uL 2.0-7.7 [facility] Anion gap in Serum or Plasma Ordered By: Harry Felder on 2024 Anion gap [Moles/Vol] 12 mmol/L 5- [facility] Automated lymphocyte count a s percentage of total leukocytesOrdered By: Harry Felder on 2024 Lymphocytes/100 WBC Auto (Unsp spec) 26.9 % 19- [facility] BUN/creatinine ratioOrdered By: Harry Felder on 2024 Urea nitrogen/Creatinine [Mass ratio] 17.6 mg/mg 10- [facility] Basophil percentageOrdered B y: Harry Felder on 2024 Basophils/100 WBC (Bld) 0.6 % 0-1 [facility] Bilirubin, totalOrdered By: Harry Felder on 2024 Bilirubin [Mass/Vol] 0.52 mg/dL 0.00-1.30 [facility] CBC W/Diff, Automatedon Absolute Lymph 3.14 X10 3/uL Normal 0.83-4.51 [facility] Comment on above: Order Comment: Order Date: 07/19/24 Order Info: 0667-1 - BMP Order Info: 2497-09 Order Info: 22711-13 - ABIOLA Performed By: #### L [id number], [id number], [id number] #### [facility] [address] [place], [place], [id number] Absolute Neut 6.9 X10 3/uL Normal 2.0-7.7 [facility] Comment on above: Order Comment: Order Date: 07/19/24 Order Info: 0667-1 - BMP Order Info: 2497-09 Order Info: 2276- - ABIOLA Performed By: #### L [id number], [id number], [id number] #### [facility] [address] [place], [address] Basophils/100 WBC (Bld) 0.6 % Normal 0-1 [facility] Comment on above: Order Comment: Order Date: 07/19/24 Order Info: 06 - BMP Order Info: 2497-09 Order Info: 2275-09 - ABIOLA Performed By: #### L [id number], [id number], [id number] #### [facility] [address] [place], [address] Eosinophils/100 WBC (Bld) 2.6 % Normal 0-5 [facility] Comment on above: Order Comment: Order Date: 07/19/24 Order Info: 666-06 - BMP Order Info: 2497-09 Order Info: 2275-09 - ABIOLA Performed By: #### L 503.6550, [id number], [id number] #### [facility] [address] [place], [place], [phone] Erythrocyte distribution width (RBC) [Ratio] 13.3 % Normal 11.6-14.6 [facility] Comment on above: Order Comment: Order Date: 07/19/24 Order Info: 666-06 - BMP Order Info: 2497-09 Order Info: 2275-09 - ABIOLA Performed By: #### L 503.6550, [id number], [id number] #### [facility] [address] [place], [address] Hematocrit (Bld) [Volume fraction] 51.0 % Normal 40-54 [facility] Comment on above: Order Comment: Order Date: 07/19/24 Order Info: 666-06 - BMP Order Info: 2497-09 Order Info: 2275-09 - ABIOLA Performed By: #### L 503.6550, [id number], [id number] #### [facility] [address] [place], [address] Hemoglobin (Bld) [Mass/Vol] 17.3 g/dL High 13.0-16.5 [facility] Comment on above: Order Comment: Order Date: 07/19/24 Order Info: 666-06 - BMP Order Info: 2497-09 Order Info: 2275-09 - ABIOLA Performed By: #### L 503.6550, [id number], [id number] #### [facility] [address] [place], [address] IG% 3.500 High 0.0-0.9 [facility] Comment on above: Order Comment: Order Date: 07/19/24 Order Info: 0667- - BMP Order Info: 2497-09 Order Info: 2275-09 - ABIOLA Result Comment: IG% - Immature Granulocytes (promyelocytes, myelocytes and metamyelocytes) > 1% indicates that a LEFT SHIFT is Present. Performed By: #### L 503.6550, [id number], [id number] #### [facility] [address] [place], [address] Lymphocytes/100 WBC (Bld) 26.9 % Normal 19-41 [facility] Comment on above: Order Comment: Order Date: 07/19/24 Order Info: 0667- - BMP Order Info: 2497-09 Order Info: 2275-09 - ABIOLA Performed By: #### L 503.6550, [id number], [id number] #### [facility] [address] [place], [address] MCH (RBC) [Entitic mass] 28.6 pg Normal 27.0-32.0 [facility] Comment on above: Order Comment: Order Date: 07/19/24 Order Info: 0667-1 - BMP Order Info: 2497-09 Order Info: 2275-09 - ABIOLA Performed By: #### L 503.6550, [id number], [id number] #### [facility] [address] [place], [address] MCHC (RBC) [Mass/Vol] 33.9 g/dL Normal 32-36 [facility] Comment on above: Order Comment: Order Date: 07/19/24 Order Info: 0667 Order Info: 2497-09 Order Info: 2275-09 - ABIOLA Performed By: #### L 503.6550, [id number], [id number] #### [facility] [address] [place], [address] MCV (RBC) [Entitic vol] 84.3 fL Normal 80-94 [facility] Comment on above: Order Comment: Order Date: 07/19/24 Order Info: 666-06 Order Info: 2497-09 Order Info: 2275-09 - ABIOLA Performed By: #### L 503.6550, [id number], [id number] #### [facility] [address] [place], [address] Monocytes/100 WBC (Bld) 7.5 % Normal 0-10 [facility] Comment on above: Order Comment: Order Date: 07/19/24 Order Info: 666-06 [facility] Order Info: 2497-09 Order Info: 2275-09 - ABIOLA Performed By: #### L 503.6550, [id number], [id number] #### [facility] [address] [place], [address] Neutrophils/100 WBC (Bld) 58.9 % Normal 47-70 [facility] Comment on above: Order Comment: Order Date: 07/19/24 Order Info: 666-06 Order Info: 2497-09 Order Info: 2275-09 - ABIOLA Performed By: #### L 503.6550, [id number], [id number] #### [facility] [address] [place], [address] Nucleated RBC (Bld) [#/Vol] 0 10*3/uL Normal 0-5 [facility] Comment on above: Order Comment: Order Date: 07/19/24 Order Info: 666-06 BMP Order Info: 2497-09 Order Info: 2275-09 - ABIOLA Performed By: #### L 503.6550, [id number], [id number] #### [facility] [address] [place], [place], [address] Platelet mean volume (Bld) [Entitic vol] 9.0 fL Normal 6.2-12.0 [facility] Comment on above: Order Comment: Order Date: 07/19/24 Order Info: 666-06 Order Info: 2497-09 Order Info: 2275-09 - ABIOLA Performed By: #### L 503.6550, [id number], [id number] #### [facility] [address] [place], [place], [address] Platelets (Bld) [#/Vol] 364 10*3/uL Normal 150-450 [facility] Comment on above: Order Comment: Order Date: 07/19/24 Order Info: 666-06 Order Info: 2497-09 Order Info: 2275-09 - ABIOLA Performed By: #### L 503.6550, [id number], [id number] #### [facility] [address] [place], [address] RBC (Bld) [#/Vol] 6.05 10*6/uL Normal 4.6-6.2 [facility] Comment on above: Order Comment: Order Date: 07/19/24 Order Info: 666-06 Order Info: 2497-09 Order Info: 2275-09 - ABIOLA Performed By: #### L 503.6550, [id number], [id number] #### [facility] [address] [place], [address] RDW SD 40.7 fl Normal 35.1-43.9 [facility] Comment on above: Order Comment: Order Date: 07/19/24 Order Info: 666-06 BMP Order Info: 2497-09 Order Info: 2275-09 - ABIOLA Performed By: #### L 503.6550, [id number], [id number] #### [facility] [address] [place], [address] WBC (Bld) [#/Vol] 11.7 10*3/uL High 4.4-11.0 [facility] Comment on above: Order Comment: Order Date: 07/19/24 Order Info: 06- - BMP Order Info: 2497-09 Order Info: 2275-09 - ABIOLA Performed By: #### L 503.6550, [id number], [id number] #### [facility] [address] [place], [address] Calculated very low density lipoprotein (VLDL) cholesterol measurementOrdered By: Harry Felder on 2024 Calculated very low density lipoprotein (VLDL) cholesterol measurement 29 mg/dL 5-40 [facility] Carbon dioxide, total [Moles /volume] in Central venous bloodOrdered By: Harry Felder on 2024 CO2 [Moles/Vol] 20.6 mmol/L Low 21.0-32.0 [facility] Chloride assayOrdered By: Amanda Felder on 2024 Chloride [Moles/Vol] 102 mmol/L 98-108 [facility] Comprehensive Metabolic Prof ilon 2024 Albumin [Mass/Vol] 3.7 g/dL Normal 3.5-5.0 [facility] Comment on above: Order Comment: Order Date: 07/19/24 Order Info: 06- - BMP Order Info: 2497-09 Order Info: 2275-09 - ABIOLA Performed By: #### L 503.6550, [id number], [id number] #### [facility] [address] [place], [address] Albumin/Globulin [Mass ratio] 1.4 {ratio} Normal 0.9-2.4 [facility] Comment on above: Order Comment: Order Date: 07/19/24 Order Info: 0667- - BMP Order Info: 2497-09 Order Info: 2275-09 - ABIOLA Performed By: #### L 503.6550, [id number], [id number] #### [facility] [address] [place], [address] ALK PHOS 56 U/L Normal 40-129 [facility] Comment on above: Order Comment: Order Date: 07/19/24 Order Info: 666-06 Order Info: 2497-09 Order Info: 2275-09 - ABIOLA Performed By: #### L 503.6550, [id number], [id number] #### [facility] [address] [place], [address] ALT [Catalytic activity/Vol] 24 U/L Normal <=46 [facility] Comment on above: Order Comment: Order Date: 07/19/24 Order Info: 666-06 - BMP Order Info: 2497-09 Order Info: 2275-09 - ABIOLA Performed By: #### L 503.6550, [id number], [id number] #### [facility] [address] [place], [place], [id number] AST [Catalytic activity/Vol] 17 U/L Normal <=37 [facility] Comment on above: Order Comment: Order Date: 07/19/24 Order Info: 666-06 - BMP Order Info: 2497-09 Order Info: 2275-09 - ABIOLA Performed By: #### L 503.6550, [id number], [id number] #### [facility] [address] [place], [address] Bilirubin [Mass/Vol] 0.52 mg/dL Normal 0.00-1.30 [facility] Comment on above: Order Comment: Order Date: 07/19/24 Order Info: 666-06 - BMP Order Info: 2497-09 Order Info: 2275-09 - ABIOLA Performed By: #### L 503.6550, [id number], [id number] #### [facility] [address] [place], [address] [phone] BUN/CRE 17.6 RATIO Normal 10-20 [facility] Comment on above: Order Comment: Order Date: 07/19/24 Order Info: 666-06 - BMP Order Info: 2497-09 Order Info: 2275-09 - ABIOLA Performed By: #### L 503.6550, [id number], [id number] #### [facility] [address] [place], [address] Calcium [Mass/Vol] 9.3 mg/dL Normal 7.6-11.0 [facility] Comment on above: Order Comment: Order Date: 07/19/24 Order Info: 666-06 - BMP Order Info: 2497-09 Order Info: 2275-09 - ABIOLA Performed By: #### L 503.6550, [id number], [id number] #### [facility] [address] [place], [address] Chloride [Moles/Vol] 102 mmol/L Normal 98-108 [facility] Comment on above: Order Comment: Order Date: 07/19/24 Order Info: 666-06 - BMP Order Info: 2497-09 Order Info: 2275-09 - ABIOLA Performed By: #### L 503.6550, [id number], [id number] #### [facility] [address] [place], [address] CO2 [Moles/Vol] 20.6 mmol/L Low 21.0-32.0 [facility] Comment on above: Order Comment: Order Date: 07/19/24 Order Info: 666-06 - BMP Order Info: 2497-09 Order Info: 2275-09 - ABIOLA Performed By: #### L 503.6550, [id number], [id number] #### [facility] [address] [place], [address] Creatinine [Mass/Vol] 1.03 mg/dL Normal 0.70-1.20 [facility] Comment on above: Order Comment: Order Date: 07/19/24 Order Info: 666-06 - Order Info: 2497-09 Order Info: 2275-09 - ABIOLA Performed By: #### L 503.6550, [id number], [id number] #### [facility] [address] [place], [address] GAP 12 Normal 5-15 [facility] Comment on above: Order Comment: Order Date: 07/19/24 Order Info: 666-06 - Order Info: 2497-09 Order Info: 2275-09 - ABIOLA Performed By: #### L 503.6550, [id number], [id number] #### [facility] [address] [place], [place], [id number] GFR/1.73 sq M.predicted among non-blacks MDRD (S/P/Bld) [Vol rate/Area] 85 mL/min/{1.73_m2} Normal >60 [facility] Comment on above: Order Comment: Order Date: 07/19/24 Order Info: 666-06 - Order Info: 2497-09 Order Info: 2275-09 - ABIOLA Result Comment: mL/m in/1.73m2 CKD-EPI Creatinine Equation (2020) Performed By: #### L 503.6550, [id number], [id number] #### [facility] [address] [place], [address] Globulin (S) [Mass/Vol] 2.6 g/dL Normal 2.2-4.2 [facility] Comment on above: Order Comment: Order Date: 07/19/24 Order Info: 666-06 BMP Order Info: 2497-09 Order Info: 2275-09 - ABIOLA Performed By: #### L 503.6550, [id number], [id number] #### [facility] [address] [place], [place], [address] [phone] Glucose [Mass/Vol] 91 mg/dL Normal 70-99 [facility] Comment on above: Order Comment: Order Date: 07/19/24 Order Info: 666-06 BMP Order Info: 2497-09 Order Info: 2275-09 - ABIOLA Performed By: #### L 503.6550, [id number], [id number] #### [facility] [address] [place], [place], [address] [phone] Potassium [Moles/Vol] 4.5 mmol/L Normal 3.3-5.1 [facility] Comment on above: Order Comment: Order Date: 07/19/24 Order Info: 666-06 BMP Order Info: 2497-09 Order Info: 2275-09 - ABIOLA Performed By: #### L 503.6550, [id number], [id number] #### [facility] [address] [place], [place], [address] [phone] Sodium [Moles/Vol] 135 mmol/L Normal 133-145 [facility] Comment on above: Order Comment: Order Date: 07/19/24 Order Info: 666-06 BMP Order Info: 2497-09 Order Info: 2275-09 - ABIOLA Performed By: #### L 503.6550, [id number], [id number] #### [facility] [address] [place], [place], [address] T PROT 6.3 g/dL Normal 5.9-8.4 [facility] Comment on above: Order Comment: Order Date: 07/19/24 Order Info: 666-06 BMP Order Info: 2497-09 Order Info: 2275-09 - ABIOLA Performed By: #### L 503.6550, [id number], [id number] #### [facility] [address] [place], [place], [address] [phone] Urea nitrogen [Mass/Vol] 18 mg/dL Normal 4-19 [facility] Comment on above: Order Comment: Order Date: 07/19/24 Order Info: 0667 - BMP Order Info: 2497-09 Order Info: 2275-09 - ABIOLA Performed By: #### L 503.6550, [id number], [id number] #### [facility] [address] [place], [place], [address] Eosinophil percentageOrdered By: Harry Felder on 2024 Eosinophils/100 WBC (Bld) 2.6 % 0-5 [facility] Erythrocyte distribution wid th ratioOrdered By: Harry Felder on 2024 Erythrocyte distribution width (RBC) [Ratio] 13.3 % 11.6-14.6 [facility] Erythrocyte distribution wid th standard deviationOrdered By: Harry Felder on 2024 Erythrocyte distribution width (RBC) [Ratio] 40.7 fl 35.1-43.9 [facility] Glomerular filtration rate ( GFR) estimation/1.73 sq m using serum, plasma, or whole bOrdered By: Harry Felder on 2024 GFR/1.73 sq M.predicted among non-blacks MDRD (S/P/Bld) [Vol rate/Area] 85 mL/min/{1.73_m2} >60 [facility] Comment on above: mL/min/1.73m2 CKD-EP I Creatinine Equation (2020) Hematocrit Auto (Bld) [Volum e fraction]Ordered By: Harry Felder on 2024 Hematocrit (Bld) [Volume fraction] 51.0 % 40-54 [facility] Hemoglobin A1con 2024 HbA1c (Bld) [Mass fraction] 5.9 % High <=5.6 [facility] Comment on above: Order Comment: Order Date: 07/19/24 Order Info: 0667- - BMP Order Info: 2497-09 Order Info: 2275-09 - ABIOLA Result Comment: Norm al < 5.7 % Prediabetic 5.7 - 6.4 % Diabetic >or= 6.5 % Please note range changes. Performed By: #### L 503.6550, [id number], [id number] #### [facility] [address] [place], [address] Hemoglobin A1c percentageOrd ered By: Harry Felder on 2024 HbA1c (Bld) [Mass fraction] 5.9 % High <5.7 [facility] Comment on above: Normal < 5.7 % Predi abetic 5.7 - 6.4 % Diabetic >or= 6.5 % Please note range changes. Hemoglobin measurementOrdere d By: Harry Felder on 2024 Hemoglobin (Bld) [Mass/Vol] 17.3 g/dL High 13.0-16.5 [facility] Immature granulocytes/100 WB C Auto (Bld)Ordered By: Harry Felder on 2024 Immature granulocytes/100 WBC (Bld) 3.500 % High 0.0-0.9 [facility] Comment on above: IG% - Immature Granu locytes (promyelocytes, myelocytes and metamyelocytes) > 1% indicates that a LEFT SHIFT is Present. LDL calc ser/plasOrdered By: Harry Felder on 2024 Cholesterol in LDL [Mass/Vol] 65 mg/dL [facility] Comment on above: Hiqhtlobnc=713-648 m g/dL & Higher Jdhd=077 mg/dL or greater Laboratory - Chemistry and C hemistry - challengeOrdered By: Haryr Felder on 2024 AST [Catalytic activity/Vol] 17 U/L <38 [facility] Lipid Profileon 2024 CHOL:HDL 4.18 Normal [facility] Comment on above: Order Comment: Order Date: 07/19/24 Order Info: 0667-1 - BMP Order Info: 2498-4 - FE Order Info: 2276-4 - ABIOLA Performed By: #### L 503.6550, L503.6150, L3400.8186 #### [facility] [address] [place], [place], [id number] Cholesterol [Mass/Vol] 123 mg/dL Normal <=200 [facility] Comment on above: Order Comment: Order Date: 07/19/24 Order Info: 06- - BMP Order Info: 2497-09 Order Info: 2275-09 Result Comment: Chol esterol level, Desirable <200 mg/dL Borderline high cholesterol 200-239 mg/dL High cholesterol >=240 mg/dL Recommendations of the NCEP Adult Treatment Panel for the following risk-cutoff thresholds for the [place] population. Performed By: #### L 503.6550, L503.6150, L3400.3800 #### [facility] [address] [place], [address] Cholesterol in HDL [Mass/Vol] 29 mg/dL Low [facility] Comment on above: Order Comment: Order Date: 07/19/24 Order Info: 06 - BMP Order Info: 2497-09 Order Info: 2275-09 Result Comment: Nicole onal Cholesterol Education Program (NCEP) guidelines: <40 mg/dL: Low HDL-cholesterol (major risk factor for CHD) >= 60 mg/dL: High HDL-cholesterol (negative risk factor for CHD) HDL-cholesterol is affected by a number of factors, e.g. smoking, exercise, hormones, sex and age. Performed By: #### L 503.6550, L503.6150, [id number] #### [facility] [address] [place], [address] Cholesterol in LDL [Mass/Vol] 65 mg/dL Normal [facility] Comment on above: Order Comment: Order Date: 07/19/24 Order Info: 0667- - BMP Order Info: 2497-09 Order Info: 2275-09 Result Comment: Bord hwbhkk=362-665 mg/dL Higher Gegx=223 mg/dL or greater Performed By: #### L 503.6550, L503.6150, [id number] #### [facility] [address] [place], [address] Cholesterol in VLDL [Mass/Vol] 29 mg/dL Normal 5-40 [facility] Comment on above: Order Comment: Order Date: 07/19/24 Order Info: 06-1 - BMP Order Info: 2497-09 Order Info: 2275-09 - ABIOLA Performed By: #### L 503.6550, L503.6150, [id number] #### [facility] [address] [place], [place], [address] Triglyceride [Mass/Vol] 144 mg/dL Normal [facility] Comment on above: Order Comment: Order Date: 07/19/24 Order Info: 0667-1 - BMP Order Info: 2497-09 Order Info: 2275-09 - ABIOLA Result Comment: The drugs N-Acetylcysteine and Metamizole may falsely depress this assay. Normal range: <150 mg/dL Borderline High: 150-199 mg/dL High: 200-499 mg/dL Very High: >500 mg/dL Performed By: #### L 503.6550, L503.6150, L3400.3800 #### [facility] [address] [place], [place], [address] MCV (mean corpuscular volume ) determinationOrdered By: Harry Felder on 2024 MCV (RBC) [Entitic vol] 84.3 fL 80-94 [facility] Mean corpuscular hemoglobin (MCH) determinationOrdered By: Harry Felder on 2024 MCH (RBC) [Entitic mass] 28.6 pg 27.0-32.0 [facility] Mean corpuscular hemoglobin concentration (MCHC) determinationOrdered By: Harry Felder on 2024 MCHC (RBC) [Mass/Vol] 33.9 g/dL 32-36 [facility] Mean platelet volume determi nationOrdered By: Harry Felder on 2024 Platelet mean volume (Bld) [Entitic vol] 9.0 fL 6.2-12.0 [facility] Monocyte percentageOrdered B y: Harry Felder on 2024 Monocytes/100 WBC (Bld) 7.5 % 0-10 [facility] Neutrophil percentageOrdered By: Harry Felder on 2024 Neutrophils/100 WBC (Bld) 58.9 % 47-70 [facility] Nucleated red blood cell per centageOrdered By: Harry Felder on 2024 Nucleated RBC/100 WBC (Bld) [Ratio] 0 % 0-5 [facility] Platelet countOrdered By: Amanda Felder on 2024 Platelets (Bld) [#/Vol] 364 10*3/uL 150-450 [facility] Potassium measurement (mass/ volume)Ordered By: Harry Felder on 2024 Potassium (Unsp spec) [Mass/Vol] 4.5 mmol/L 3.3-5.1 [facility] RBC Auto (Bld) [#/Vol]Ordere d By: Harry Felder on 2024 RBC (Bld) [#/Vol] 6.05 10*6/uL 4.6-6.2 [facility] Screening total cholesterol/ high density lipoprotein (HDL) cholesterol ratioOrdered By: Harry Felder on 2024 Cholesterol.total/Cholest nayan in HDL [Mass ratio] 4.18 {ratio} [facility] Serum creatinine measurement (mass/volume)Ordered By: Harry Felder on 2024 Creatinine [Mass/Vol] 1.03 mg/dL 0.70-1.20 [facility] Serum globulin measurementOr dered By: Harry Felder on 2024 Globulin (S) [Mass/Vol] 2.6 g/dL 2.2-4.2 [facility] Serum glucose measurement (m ass/volume)Ordered By: Harry Felder on 2024 Glucose [Mass/Vol] 91 mg/dL 70-99 [facility] Serum or plasma alanine sung otransferase (ALT) measurementOrdered By: Harry Felder on 2024 ALT [Catalytic activity/Vol] 24 U/L <47 [facility] Serum or plasma albumin colton urement (mass/volume)Ordered By: Harry Felder on 2024 Albumin [Mass/Vol] 3.7 g/dL 3.5-5.0 [facility] Serum or plasma albumin/glob ulin mass ratioOrdered By: Harry Felder on 2024 Albumin/Globulin [Mass ratio] 1.4 {ratio} 0.9-2.4 [facility] Serum or plasma alkaline jeniffer sphatase measurementOrdered By: Harry Felder on 2024 ALP [Catalytic activity/Vol] 56 U/L 40-129 [facility] Serum or plasma calcium colton urement (mass/volume)Ordered By: Harry Felder on 2024 Calcium [Mass/Vol] 9.3 mg/dL 7.6-11.0 [facility] Serum or plasma cholesterol in HDL measurement (mass/volume)Ordered By: Harry Felder on 2024 Cholesterol in HDL [Mass/Vol] 29 mg/dL Low >40 [facility] Comment on above: National Cholesterol Education Program (NCEP) guidelines:<40 mg/dL: Low HDL-cholesterol (major risk factor for CHD)>= 60 mg/dL: High HDL-cholesterol (negative risk factor for CHD)HDL-cholesterol is affected by a number of factors, e.g. smoking, exercise, hormones, sex and age. Serum or plasma cholesterol measurement (mass/volume)Ordered By: Harry Felder on 2024 Cholesterol [Mass/Vol] 123 mg/dL <201 [facility] Comment on above: Cholesterol level, D esirable <200 mg/dLBorderline high cholesterol 200-239 mg/dLHigh cholesterol >=240 mg/dLRecommendations of the NCEP Adult Treatment Panel for the following risk-cutoff thresholds for the [place] population. Serum or plasma urea nitroge n measurement (mass/volume)Ordered By: Harry Felder on 2024 Urea nitrogen [Mass/Vol] 18 mg/dL 4-19 [facility] Sodium levelOrdered By: Harry Felder on 2024 Sodium [Moles/Vol] 135 mmol/L 133-145 [facility] Total proteinOrdered By: Sidney Felder on 2024 Protein [Mass/Vol] 6.3 g/dL 5.9-8.4 [facility] Triglycerides measurementOrd ered By: Harry Felder on 2024 Triglyceride [Mass/Vol] 144 mg/dL <199 [facility] Comment on above: The drugs N-Acetylcy steine and Metamizole may falsely depress this assay. Normal range: <150 mg/dLBorderline High: 150-199 mg/dLHigh: 200-499 mg/dLVery High: >500 mg/dL White blood cell (WBC) count Ordered By: Harry Felder on 2024 WBC (Bld) [#/Vol] 11.7 10*3/uL High 4.4-11.0 [facility] Culture, Blood (WB)on 2024 CUB Blood cultures x2, f rom two different sites No growth in 5 days. Normal [facility] Comment on above: Performed By: #### L 503.6550, L503.6150, L3400.3800 #### [facility] [address] [facility] [place], [address] Urine Cultureon 11-06-2024 [facility] Urine Culture Urine Culture Klebsiella pneumoniae sp pneum [place] Count 80,000-100,000 Klebsiella pneumoniae sp pneum: REACTION Ampicillin Islt CHALINO Ampicillin+Sulbac Islt CHALINO 4 S Cefepime Islt CHALINO <=0.12 S cefTRIAXone Islt CHALINO <=0.25 S Ciprofloxacin Islt CHALINO <=0.06 S B-Lactamase Extended Susc Islt NEG Gentamicin Islt CHALINO <=1 S levoFLOXacin Islt CHALINO <=0.12 S Meropenem Islt CHALINO <=0.25 S Nitrofurantoin Islt CHALINO 32 S Pip+Tazo Islt CHALINO <=4 S TMP SMX Islt CHALINO <=20 S Normal [facility] Comment on above: Performed By: #### L 400.0001, M100.2200 #### [facility] [address] [place], [address] Absolute lymphocyte countOrd ered By: Juan Owen on 11-04-2024 Lymphocytes Auto (Unsp spec) [#/Vol] 0.93 10*3/uL 0.83-4.51 [facility] Absolute neutrophil countOrd ered By: Juan Owen on 11-04-2024 Neutrophils (Bld) [#/Vol] 15.7 10*3/uL High 2.0-7.7 [facility] Activated partial thrombopla stin time (aPTT) in platelet poor plasma by coagulation aOrdered By: Juan Owen on 11-04-2024 aPTT Coag (PPP) [Time] 32.1 s 24.1-36.2 [facility] Anion gap in Serum or Plasma Ordered By: Juan Owen on 11-04-2024 Anion gap [Moles/Vol] 12 mmol/L 5-15 [facility] Automated lymphocyte count a s percentage of total leukocytesOrdered By: Juan Owen on 11-04-2024 Lymphocytes/100 WBC Auto (Unsp spec) 5.0 % Low 19- [facility] BUN/creatinine ratioOrdered By: Juan Owen on 11-04-2024 Urea nitrogen/Creatinine [Mass ratio] 14.9 mg/mg 10-20 [facility] Basophil percentageOrdered B y: Juan Owen on 11-04-2024 Basophils/100 WBC (Bld) 0.4 % 0-1 [facility] Bilirubin Test strip Ql (U)O rdered By: Juan Owen on 11-04-2024 Bilirubin Ql (U) Negative Negative [facility] Bilirubin, totalOrdered By: Juan Owen on 11-04-2024 Bilirubin [Mass/Vol] 1.41 mg/dL High 0.00-1.30 [facility] Blood cultureOrdered By: Martin Owen on 11-04-2024 Bacteria identified Cx Nom (Bld) No growth in 5 days. [facility] Bacteria identified Cx Nom (Bld) No growth in 5 days. [facility] CBC W/Diff, Automatedon 10-11 PLT EST A Normal ADEQ [facility] Comment on above: Performed By: #### L 400.0001 #### [facility] [address] [place], [address] RED CELL MORPH NORM C+C Normal NORM C C [facility] Comment on above: Performed By: #### L 400.0001 #### [facility] [address] [place], [address] Carbon dioxide, total [Moles /volume] in Central venous bloodOrdered By: Juan Owen on 11-04-2024 CO2 [Moles/Vol] 23.6 mmol/L 21.0-32.0 [facility] Chloride assayOrdered By: Edwin Owen on 11-04-2024 Chloride [Moles/Vol] 100 mmol/L 98-108 [facility] Comprehensive Metabolic Prof ilon 11-04-2024 Albumin [Mass/Vol] 3.8 g/dL Normal 3.5-5.0 [facility] Comment on above: Performed By: #### L 503.6550, L503.6150, L3400.3800 #### [facility] [address] [place], [address] Albumin/Globulin [Mass ratio] 1.2 {ratio} Normal 0.9-2.4 [facility] Comment on above: Performed By: #### L 503.6550, L503.6150, [id number] #### [facility] [address] [place], [address] ALK PHOS 56 U/L Normal 40-129 [facility] Comment on above: Performed By: #### L 503.6550, L503.6150, [id number] #### [facility] [address] [place], [address] ALT [Catalytic activity/Vol] 9 U/L Normal <=46 [facility] Comment on above: Performed By: #### L 503.6550, L503.6150, [id number] #### [facility] [address] [place], [address] AST [Catalytic activity/Vol] 11 U/L Normal <=37 [facility] Comment on above: Performed By: #### L 503.6550, L503.6150, [id number] #### [facility] [address] [place], [address] Bilirubin [Mass/Vol] 1.41 mg/dL High 0.00-1.30 [facility] Comment on above: Performed By: #### L 503.6550, L503.6150, [id number] #### [facility] [address] [place], [address] BUN/CRE 14.9 RATIO Normal 10-20 [facility] Comment on above: Performed By: #### L 503.6550, L503.6150, [id number] #### [facility] [address] [place], [address] Calcium [Mass/Vol] 9.3 mg/dL Normal 7.6-11.0 [facility] Comment on above: Performed By: #### L 503.6550, L503.6150, [id number] #### [facility] [address] [place], [address] Chloride [Moles/Vol] 100 mmol/L Normal 98-108 [facility] Comment on above: Performed By: #### L 503.6550, L503.6150, [id number] #### [facility] [address] [place], [address] CO2 [Moles/Vol] 23.6 mmol/L Normal 21.0-32.0 [facility] Comment on above: Performed By: #### L 503.6550, L503.6150, [id number] #### [facility] [address] [place], [address] Creatinine [Mass/Vol] 1.16 mg/dL Normal 0.70-1.20 [facility] Comment on above: Performed By: #### L 503.6550, L503.6150, [id number] #### [facility] [address] [place], [address] ECRCL 126.50 ml/min Normal 50-250 [facility] Comment on above: Performed By: #### L 503.6550, L503.6150, [id number] #### [facility] [address] [place], [address] GAP 12 Normal 5-15 [facility] Comment on above: Performed By: #### L 503.6550, L503.6150, [id number] #### [facility] [address] [place], [address] GFR/1.73 sq M.predicted among non-blacks MDRD (S/P/Bld) [Vol rate/Area] 74 mL/min/{1.73_m2} Normal >60 [facility] Comment on above: Result Comment: mL/m in/1.73m2 CKD-EPI Creatinine Equation (2020) Performed By: #### L 503.6550, L503.6150, L3400.3800 #### [facility] [address] [place], [address] Globulin (S) [Mass/Vol] 3.1 g/dL Normal 2.2-4.2 [facility] Comment on above: Performed By: #### L 503.6550, L503.6150, [id number] #### [facility] [address] [place], [address] Glucose [Mass/Vol] 139 mg/dL High 70-99 [facility] Comment on above: Performed By: #### L 503.6550, L503.6150, [id number] #### [facility] [address] [place], [address] Potassium [Moles/Vol] 4.3 mmol/L Normal 3.3-5.1 [facility] Comment on above: Performed By: #### L 503.6550, L503.6150, [id number] #### [facility] [address] [place], [address] Sodium [Moles/Vol] 136 mmol/L Normal 133-145 [facility] Comment on above: Performed By: #### L 503.6550, L503.6150, [id number] #### [facility] [address] [place], [address] T PROT 6.9 g/dL Normal 5.9-8.4 [facility] Comment on above: Performed By: #### L 503.6550, L503.6150, [id number] #### [facility] [address] [place], [address] Urea nitrogen [Mass/Vol] 17 mg/dL Normal 4-19 [facility] Comment on above: Performed By: #### L 503.6550, L503.6150, [id number] #### [facility] [address] [place], [address] Emergency Department Summary on 11-04-2024 Emergency Department Summary [facility] Medical Records Department [address] [place] [address] Emergency Department Summary 11/04/24 MR#: [id number] Acct: [id number] Name: SOHAIL THOMPSON Rep #: [id number] : 1965 58 From: Juan Owen DO PCP: Dr. Harry Felder MD Status:REG ER Location: ED HPI History of Present Illness Chief Complaint: Complaint Informant: patient Narrative Narrative: 58-year-old male presenting to the emergency room with a chief complaint of fever and urinary symptoms. Patient states for the past couple days he has had fever at home. He notes urinary frequency and dark urine. He notes he has a history of diabetes as well as Charcot foot as well as a history of atrial fibrillation status post cardiac ablation. He takes apixaban. He states that he has had abnormal renal function but he adjusted his diet and his renal function has returned to normal. Patient denies any vomiting. He denies any pain with this. He has had prior kidney stones but again is not having pain with this [facility] Medical History Polycythemia vera Ulcer of toe of right foot Junctional tachycardia (12/21/20) Chronic foot ulcer Obstructive sleep apnea Hyperlipidemia Morbid obesity Essential hypertension Callus of foot Diabetic foot ulcer Diabetes Arthritis Edema, lower extremity Type 2 diabetes mellitus with diabetic polyneuropathy Perineal abscess Diabetes type 2, uncontrolled Gout Scrotum, abscess Home Medications ???Medication ???Instructions ???Recorded ???Last Taken ???Type metformin 1,000 mg tablet 1,000 mg PO BIDCM 04/26/13 5 History amlodipine 10 mg tablet 10 mg PO DAILY 30 days #30 tabs 03/11/22 History rosuvastatin 10 mg tablet 10 mg PO DAILY 03/01/22 Unknown Hi story allopurinol 100 mg tablet 100 mg PO DAILY 09/20/22 Unknown H istory empagliflozin 25 mg tablet 25 mg PO DAILY 01/31/23 Unknown Hi story (Jardiance) lisinopril 5 mg tablet 5 mg PO DAILY 01/31/23 Unknown His tory metoprolol succinate 50 mg 50 mg PO DAILY #90 tabs 02/23/24 U nknown Rx tablet,extended release 24 hr apixaban 5 mg tablet (Eliquis) 5 mg PO BID #180 TABLETS 04/03/24 Unknown Rx icosapent ethyl 1 gram capsule 2 g (2 x 1 gram) PO BID #360 caps 07/01/24 Unknown Rx (Vascepa) cinnamon bark 500 mg capsule 1,000 mg PO DAILY 10/03/24 Unknown History (Cinnamon) insulin glargine 100 unit/mL (3 25 unit subcut QHS 10/03/24 Unknow n History mL) subcutaneous pen (Lantus Solostar U-100 Insulin) magnesium oxide 500 mg capsule 500 mg PO QDAY 10/03/24 Unknown Hi story tirzepatide 15 mg/0.5 mL 15 mg subcut QWEEK 10/03/24 Unknow n History subcutaneous pen injector (Mounjaro) cefpodoxime 200 mg tablet 200 mg PO BID 10 days #20 tabs Unknown Rx Allergy/AdvReac Type Severity Reaction Status Date / Time No Known Allergies Allergy Verified 10/03/24 15:30 Family History Other Diabetes Surgical History History of radiofrequency ablation procedure for cardiac arrhythmia ( 09/07/22) History of cardiac radiofrequency ablation (09/07/22) History of cardioversion (03/11/22) Social History Smoking Status: Never smoker alcohol intake: never substance use type: does not use caffeine: Yes Type: carbonated beverages ROS ROS ED Constitutional Constitutional ED: Reports chills and fever(s); Denies weight loss Eyes Eyes: Denies change in vision or diplopia ENT ENT ED: Denies ear pain, rhinorrhea or sore throat Cardiovascular Cardiovascular: Denies chest pain, orthopnea, palpitations or racing heartbeat Respiratory/Chest Respiratory/Chest: Denies cough, dyspnea or orthopnea Gastrointestinal Gastrointestinal: Denies abdominal pain, diarrhea, nausea or vomiting Genitourinary Genitourinary ED: Reports urinary frequency; Denies dysuria or hematuria Musculoskeletal Musculoskeletal: Denies arthralgias or myalgias Integumentary Denies abscess or rash Neurologic Neurologic: Denies headache(s) or weakness Psychiatric Psychiatric: Denies anxiety, depression, suicidal ideation or suicidal thoughts Endocrine Endocrinology: Denies polydipsia, polyphagia or polyuria Allergic/Immunologic Allergic/Immunologic ED: Denies mouth swelling, tongue swelling or urticaria EXAM Physical Exam Const Vital Signs: 11/04/24 06:06 11/04/24 06:08 11/04/24 07:08 Temperature 99.0 F 99.0 F 99.2 F H Temperature Source Oral Oral Oral Pulse Rate 107 H 107 H 109 H Respiratory Rate 22 H 22 H 13 Blood Pressure 158/81 H 158/81 H 142/78 H Blood Pressure Mean 106 106 (more content not included)... Normal [facility] Eosinophil percentageOrdered By: Juan Owen on 11-04-2024 Eosinophils/100 WBC (Bld) 0.2 % 0-5 [facility] Erythrocyte distribution wid th ratioOrdered By: Juan Owen on 11-04-2024 Erythrocyte distribution width (RBC) [Ratio] 13.7 % 11.6-14.6 [facility] Erythrocyte distribution wid th standard deviationOrdered By: Juan Owen on 11-04-2024 Erythrocyte distribution width (RBC) [Ratio] 43.0 fl 35.1-43.9 [facility] Erythrocyte morphology asses smentOrdered By: Juan Owen on 11-04-2024 RBC morphology finding Nom (Bld) NORM C+C NORMAL NORM C&C [facility] Glomerular filtration rate ( GFR) estimation/1.73 sq m using serum, plasma, or whole bOrdered By: Juan Owen on 11-04-2024 GFR/1.73 sq M.predicted among non-blacks MDRD (S/P/Bld) [Vol rate/Area] 74 mL/min/{1.73_m2} >60 [facility] Comment on above: mL/min/1.73m2 CKD-EP I Creatinine Equation (2020) Hematocrit Auto (Bld) [Volum e fraction]Ordered By: Juan Owen on 11-04-2024 Hematocrit (Bld) [Volume fraction] 50.5 % 40-54 [facility] Hemoglobin measurementOrdere d By: Juan Owen on 11-04-2024 Hemoglobin (Bld) [Mass/Vol] 17.1 g/dL High 13.0-16.5 [facility] Immature granulocytes/100 WB C Auto (Bld)Ordered By: Juan Owen on 11-04-2024 Immature granulocytes/100 WBC (Bld) 0.800 % 0.0-0.9 [facility] Comment on above: IG% - Immature Granu locytes (promyelocytes, myelocytes and metamyelocytes) > 1% indicates that a LEFT SHIFT is Present. International normalized rat io (INR) calculationOrdered By: Juan Owen on 11-04-2024 INR Coag (Bld) [Relative time] 1.4 {INR} [facility] Ketones Test strip Ql (U)Ord ered By: Juan Owen on 11-04-2024 Ketones Ql (U) 15 mg/dl High Negative [facility] - Chemistry and C hemistry - challengeOrdered By: Juan Owen on 11-04-2024 AST [Catalytic activity/Vol] 11 U/L <38 [facility] Lactic Acidon 11-04-2024 Lactate [Moles/Vol] 1.8 mmol/L Normal 0.0-2.0 [facility] Comment on above: Order Comment: Order Date: 07/19/24 Order Info: 0667-1 - BMP Order Info: 2498-4 - FE Order Info: 2276-4 - ABIOLA Performed By: #### L 503.6550, L503.6150, L3400.3800 #### [facility] [address], [address] Lactic acid measurementOrder ed By: Juan Owen on 11-04-2024 Lactate [Moles/Vol] 1.8 mmol/L 0.0-2.0 [facility] MCV (mean corpuscular volume ) determinationOrdered By: Juan Owen on 11-04-2024 MCV (RBC) [Entitic vol] 86.2 fL 80-94 [facility] Mean corpuscular hemoglobin (MCH) determinationOrdered By: Juan Owen on 11-04-2024 MCH (RBC) [Entitic mass] 29.2 pg 27.0-32.0 [facility] Mean corpuscular hemoglobin concentration (MCHC) determinationOrdered By: Juan Owen on 11-04-2024 MCHC (RBC) [Mass/Vol] 33.9 g/dL 32-36 [facility] Mean platelet volume determi nationOrdered By: Juan Owne on 11-04-2024 Platelet mean volume (Bld) [Entitic vol] 8.9 fL 6.2-12.0 [facility] Microscopic analysis of urin e for red blood cells (RBC)Ordered By: Juan Owen on 11-04-2024 Microscopic analysis of urine for red blood cells (RBC) 0 SEEN /hpf 0-5 [facility] Monocyte percentageOrdered B y: Juan Owen on 11-04-2024 Monocytes/100 WBC (Bld) 10.0 % 0-10 [facility] Mucus LM Ql (Urine sed)Order ed By: Juan Owen on 11-04-2024 Mucus Ql (Urine sed) 0 SEEN /hpf [facility] Neutrophil percentageOrdered By: Juan Owen on 11-04-2024 Neutrophils/100 WBC (Bld) 83.6 % High 47-70 [facility] Nitrite Test strip Ql (U)Ord ered By: Juan Owen on 11-04-2024 Nitrite Ql (U) Positive High Negative [facility] Nucleated red blood cell per centageOrdered By: Juan Owen on 11-04-2024 Nucleated RBC/100 WBC (Bld) [Ratio] 0 % 0-5 [facility] Partial Thromboplast Timeon 11-04-2024 aPTT Coag (Bld) [Time] 32.1 s Normal 24.1-36.2 [facility] Comment on above: Performed By: #### L 400.0001 #### [facility] [address] [place], [place], [id number] Platelet countOrdered By: Edwin Owen on 11-04-2024 Platelets (Bld) [#/Vol] 188 10*3/uL 150-450 [facility] Platelet estimateOrdered By: Juan Owen on 11-04-2024 Platelets LM Ql (Bld) A ADEQ [facility] Potassium measurement (mass/ volume)Ordered By: Juan Owen on 11-04-2024 Potassium (Unsp spec) [Mass/Vol] 4.3 mmol/L 3.3-5.1 [facility] Protein Test strip Ql (U)Ord ered By: Juan Owen on 11-04-2024 Protein Ql (U) 30 mg/dl High Negative [facility] Prothrombin Time w/INRon INR Coag (PPP) [Relative time] 1.4 {INR} Normal [facility] Comment on above: Performed By: #### L 400.0001 #### [facility] [address] [place], [place], [id number] PT Coag (PPP) [Time] 17.4 s High 11.7-14.9 [facility] Comment on above: Performed By: #### L 400.0001 #### [facility] [place], [address] Prothrombin timeOrdered By: Juan Owen on 11-04-2024 PT Coag (PPP) [Time] 17.4 s High 11.7-14.9 [facility] RBC Auto (Bld) [#/Vol]Ordere d By: Juan Owen on 11-04-2024 RBC (Bld) [#/Vol] 5.86 10*6/uL 4.6-6.2 [facility] Serum creatinine measurement (mass/volume)Ordered By: Juan Owen on 11-04-2024 Creatinine [Mass/Vol] 1.16 mg/dL 0.70-1.20 [facility] Serum globulin measurementOr dered By: Juan Owen on 11-04-2024 Globulin (S) [Mass/Vol] 3.1 g/dL 2.2-4.2 [facility] [facility] Serum glucose measurement (m ass/volume)Ordered By: Juan Owen on 11-04-2024 Glucose [Mass/Vol] 139 mg/dL High 70-99 [facility] Serum or plasma alanine sung otransferase (ALT) measurementOrdered By: Juan Owen on 11-04-2024 ALT [Catalytic activity/Vol] 9 U/L <47 [facility] Serum or plasma albumin colton urement (mass/volume)Ordered By: Juan Owen on 11-04-2024 Albumin [Mass/Vol] 3.8 g/dL 3.5-5.0 [facility] Serum or plasma albumin/glob ulin mass ratioOrdered By: Juan Owen on 11-04-2024 Albumin/Globulin [Mass ratio] 1.2 {ratio} 0.9-2.4 [facility] Serum or plasma alkaline jneiffer sphatase measurementOrdered By: Juan Owen on 11-04-2024 ALP [Catalytic activity/Vol] 56 U/L 40-129 [facility] Serum or plasma calcium colton urement (mass/volume)Ordered By: Juan Owen on 11-04-2024 Calcium [Mass/Vol] 9.3 mg/dL 7.6-11.0 [facility] Serum or plasma urea nitroge n measurement (mass/volume)Ordered By: Juan Owen on 11-04-2024 Urea nitrogen [Mass/Vol] 17 mg/dL 4-19 [facility] Sodium levelOrdered By: Tahir Owen on 11-04-2024 Sodium [Moles/Vol] 136 mmol/L 133-145 [facility] Squamous epithelial cells de tection in urine sediment by light microscopyOrdered By: Juan Owen on 11-04-2024 Epithelial cells.squamous LM Ql (Urine sed) 0-5 SEEN /hpf 0-5 [facility] Total proteinOrdered By: Martin Owen on 11-04-2024 Protein [Mass/Vol] 6.9 g/dL 5.9-8.4 [facility] Transitional cells detection in urine sediment by light microscopyOrdered By: Juan Owen on 11-04-2024 Transitional cells LM Ql (Urine sed) 0-5 SEEN /hpf 0-5 [facility] Urinalysis, Completeon 11-04 BACTERIA 2+ /hpf Normal None Seen [facility] Comment on above: Order Comment: CLEAN CATCH Performed By: #### L 400.0001 #### [facility] [address] [place], [place], [id number] (695) EPI,SQUAMOUS 0-5 SEEN Normal 0-5 [facility] Comment on above: Order Comment: CLEAN CATCH Performed By: #### L 400.0001 #### [facility] [address] [place], [address] EPI,TRANSITION 0-5 SEEN Normal 0-5 [facility] Comment on above: Order Comment: CLEAN CATCH Performed By: #### L 400.0001 #### [facility] [address] [place], [address] WBC 10-25 SEEN Normal 0-5 [facility] Comment on above: Order Comment: CLEAN CATCH Performed By: #### L 400.0001 #### [facility] [address] [place], [address] BACTERIA Normal None Seen [facility] Comment on above: Order Comment: JACKIE CTOR TO SPECIFY Result Comment: Canc elled via OM: DUPLICATE Performed By: #### L 400.0001, M100.2200 #### [facility] [address] [place], [address] BILIRUBIN URINE Normal Negative [facility] Comment on above: Order Comment: JACKIE CTOR TO SPECIFY Result Comment: Canc elled via OM: DUPLICATE Performed By: #### L 400.0001, M100.2200 #### [facility] [address] [place], [address] Clarity (U) Normal Clear [facility] Comment on above: Order Comment: JACKIE CTOR TO SPECIFY Result Comment: Canc elled via OM: DUPLICATE Performed By: #### L 400.0001, M100.2200 #### [facility] [address] [place], [address] Color (U) Normal Yellow [facility] Comment on above: Order Comment: JACKIE CTOR TO SPECIFY Result Comment: Canc elled via OM: DUPLICATE Performed By: #### L 400.0001, M100.2200 #### [facility] [address] [place], [address] EPI,SQUAMOUS Normal 0-5 [facility] Comment on above: Order Comment: JACKIE CTOR TO SPECIFY Result Comment: Canc elled via OM: DUPLICATE Performed By: #### L 400.0001, M100.2200 #### [facility] [address] [place], [address] GLUCOSE, UR Normal Normal [facility] Comment on above: Order Comment: JACKIE CTOR TO SPECIFY Result Comment: Canc elled via OM: DUPLICATE Performed By: #### L 400.0001, M100.2200 #### [facility] [address] [place], [address] KETONE UR Normal Negative [facility] Comment on above: Order Comment: JACKIE CTOR TO SPECIFY Result Comment: Canc elled via OM: DUPLICATE Performed By: #### L 400.0001, M100.0 #### [facility] [address] [place], [address] LEUK ESTERASE Normal Negative [facility] Comment on above: Order Comment: JACKIE CTOR TO SPECIFY Result Comment: Canc elled via OM: DUPLICATE Performed By: #### L 400.0001, M100.2200 #### [facility] [address] [place], [address] Mucus Ql (Urine sed) Normal [facility] Comment on above: Order Comment: JACKIE CTOR TO SPECIFY Result Comment: Canc elled via OM: DUPLICATE Performed By: #### L 400.0001, .0 #### [facility] [address] [place], [address] Nitrite Ql (U) Normal Negative [facility] Comment on above: Order Comment: JACKIE CTOR TO SPECIFY Result Comment: Canc elled via OM: DUPLICATE Performed By: #### L 400.0001, .2199 #### [facility] [address] [place], [address] OCCULT BLOOD-UR Normal Negative [facility] Comment on above: Order Comment: JACKIE CTOR TO SPECIFY Result Comment: Canc elled via OM: DUPLICATE Performed By: #### L 400.0001, .0 #### [facility] [address] [place], [address] pH UR Normal 5.0 - 8.0 [facility] Comment on above: Order Comment: JACKIE CTOR TO SPECIFY Result Comment: Canc elled via OM: DUPLICATE Performed By: #### L 400.0001, M100.2200 #### [facility] [address] [place], [address] PROT DIPSTX Normal Negative [facility] Comment on above: Order Comment: JACKIE CTOR TO SPECIFY Result Comment: Canc elled via OM: DUPLICATE Performed By: #### L 400.0001, M100.2200 #### [facility] [address] [place], [address] RBC Normal 0-5 [facility] Comment on above: Order Comment: JACKIE CTOR TO SPECIFY Result Comment: Canc elled via OM: DUPLICATE Performed By: #### L 400.0001, M100.0 #### [facility] [address] [place], [address] SP.GR. DIPSTX Normal 1.002-1.03 0 [facility] Comment on above: Order Comment: JACKIE CTOR TO SPECIFY Result Comment: Canc elled via OM: DUPLICATE Performed By: #### L 400.0001, 00.0 #### [facility] [address] [place], [address] UR Preservative Normal [facility] Comment on above: Order Comment: JACKIE CTOR TO SPECIFY Result Comment: Canc elled via OM: DUPLICATE Performed By: #### L 400.0001, .0 #### [facility] [address] [place], [address] UROBILI Normal Normal [facility] Comment on above: Order Comment: JACKIE CTOR TO SPECIFY Result Comment: Canc elled via OM: DUPLICATE Performed By: #### L 400.0001, .0 #### [facility] [address] [place], [address] WBC Normal 0-5 [facility] Comment on above: Order Comment: JACKIE CTOR TO SPECIFY Result Comment: Canc elled via OM: DUPLICATE Performed By: #### L 400.0001, M100.2200 #### [facility] [address] [place], [address] Mucus Ql (Urine sed) 0 SEEN Normal [facility] Comment on above: Order Comment: CLEAN CATCH Performed By: #### L 400.0001 #### [facility] [address] [place], [place], [id number] RBC 0 SEEN Normal 0-5 [facility] Comment on above: Order Comment: CLEAN CATCH Performed By: #### L 400.0001 #### [facility] [address] [place], [place], [id number] Urine clarityOrdered By: Martin Owen on 11-04-2024 Clarity (U) Cloudy Clear [facility] Urine color determinationOrd ered By: Juan Owen on 11-04-2024 Color (U) Yellow Yellow [facility] Urine cultureOrdered By: Martin Owen on 11-04-2024 Bacteria identified Cx Nom (U) Klebsiella pneumoniae sp pneum Abnormal [facility] Urine glucose detectionOrder ed By: Juan Owen on 11-04-2024 Glucose Ql (U) 1000 mg/dl High Normal [facility] Urine leukocyte esterase det ection by dipstickOrdered By: Juan Owen on 11-04-2024 Leukocyte esterase Test strip Ql (U) 500 /ul High Negative [facility] Urine pHOrdered By: Juan franco on 11-04-2024 pH (U) 6.0 [pH] 5.0 - 8.0 [facility] Urine sediment bacteria coun t by microscopy (number/high power field)Ordered By: Juan Owen on 11-04-2024 Bacteria LM.HPF (Urine sed) [#/Area] 2 /[HPF] None Seen [facility] Urine specific gravity measu rementOrdered By: Juan Owen on 11-04-2024 Specific gravity (U) [Rel density] 1.015 1.002-1.03 0 [facility] Urine urobilinogen measureme ntOrdered By: Juan Owen on 11-04-2024 Urobilinogen Ql (U) Normal mg/dl Normal [facility] White blood cell (WBC) count Ordered By: Juan Owen on 11-04-2024 WBC (Bld) [#/Vol] 18.8 10*3/uL High 4.4-11.0 [facility] White blood cell countOrdere d By: Juan Owen on 11-04-2024 White blood cell count 10-25 SEEN /hpf 0-5 [facility] Cardiology Visit Reporton Cardiology Visit Report [facility] [address] [place], [place] [address] OFFICE VISIT Date of Service: 10/03/24 MR#: [id number] Acct: [id number] Name: SOHAIL THOMPSON Rep #: [id number] : 1965 Provider: Dr. Thad Auguste MD Age/Sex: 58/M Location: [facility] [place] Status: Signed HPI HPI History of Present Illness Details: Sohail Thompson is a 58-year-old gentleman that presents here today for cardiovascular follow-up. He has a history of hypertension, hyperlipidemia, hypertriglyceridemia, obstructive sleep apnea, and obesity. He also has a history of sinus tachycardia, Junctional tachycardia, Atrial tachycardia. He is also noted to have polycythemia vera, this is being managed by PCP. He did undergo an atrial fib ablation as well as an atrial flutter ablation in August [address] Moya done at [facility]. His follow-up monitor did demonstrate brief runs of atrial ectopy but no sustained or nonsustained atrial fibrillation or flutter. His sotalol was stopped by Dr. Moya. Echocardiogram in December 2020 demonstrated an ejection fraction of 60% and pharmacologic stress test demonstrated no evidence of ischemia. He appears to be doing well he denies any chest pain or shortness with or paroxysmal nocturnal dyspnea pedal edema and no neck arm or jaw discomfort suggest angina. He has been compliant with all his medications. He has been on Mounjaro recently and has lost weight. Intake Vital Signs 05/29/23 15:15 10/03/24 15:29 Height 6 ft 5 in 6 ft 5 in Weight: 397 lb BMI 47.0 BP 120/84 H Blood Pressure Location Lt brachial Position Sitting Respiration 16 Pulse 100 Pulse Source Monitor Intake Visit Reasons: 1 Y FU All Source Intelligence Required: No Accompanied by: Self Is patient in pain?: No Allergies No Known Allergies Allergy (Verified 10/03/24 15:30) Medications ???Medication ???Instructions ???Recorded ???Confirmed ???Type metformin 1,000 mg tablet 1,000 mg PO BIDCM 04/26/13 5 History amlodipine 10 mg tablet 10 mg PO DAILY 30 days #30 tabs 10/03/24 History rosuvastatin 10 mg tablet 10 mg PO DAILY 03/01/22 10/03/24 H istory allopurinol 100 mg tablet 100 mg PO DAILY 09/20/22 10/03/24 History empagliflozin 25 mg tablet 25 mg PO DAILY 01/31/23 10/03/24 H istory (Jardiance) lisinopril 5 mg tablet 5 mg PO DAILY 01/31/23 10/03/24 Hi story metoprolol succinate 50 mg 50 mg PO DAILY #90 tabs 02/23/24 0 10/03/24 Rx tablet,extended release 24 hr apixaban 5 mg tablet (Eliquis) 5 mg PO BID #180 TABLETS 04/03/24 10/03/24 Rx icosapent ethyl 1 gram capsule 2 g (2 x 1 gram) PO BID #360 caps 07/01/24 10/03/24 Rx (Vascepa) cinnamon bark 500 mg capsule 1,000 mg PO DAILY 10/03/24 5 History (Cinnamon) insulin glargine 100 unit/mL (3 25 unit subcut QHS 10/03/24 History mL) subcutaneous pen (Lantus Solostar U-100 Insulin) magnesium oxide 500 mg capsule 500 mg PO QDAY 10/03/24 10/03/24 H istory tirzepatide 15 mg/0.5 mL 15 mg subcut QWEEK 10/03/24 History subcutaneous pen injector (Mounjaro) Have you fallen in the past year?: No [facility] Polycythemia vera Ulcer of toe of right foot Junctional tachycardia (12/21/20) Chronic foot ulcer Obstructive sleep apnea Hyperlipidemia Morbid obesity Essential hypertension Callus of foot Diabetic foot ulcer Diabetes Arthritis Edema, lower extremity Type 2 diabetes mellitus with diabetic polyneuropathy Perineal abscess Diabetes type 2, uncontrolled Gout Scrotum, abscess Surgical History History of radiofrequency ablation procedure for cardiac arrhythmia ( 09/07/22) History of cardiac radiofrequency ablation (09/07/22) History of cardioversion (03/11/22) Family History Other Diabetes Social History Smoking Status: Never smoker alcohol intake: never substance use type: does not use caffeine: Yes Type: carbonated beverages ROS Const Const: Negative for fatigue, weakness, headache(s), daytime sleepiness or difficulty sleeping ENT ENT: Negative for headache(s), dizziness or Nosebleed/epistaxis Cardio Chest Pain: No Palpitations: No Edema: None Resp Respiratory: Negative for SOB with activity, SOB at rest, SOB orthopnea SOB lying down or Cough GI GI: Negative nausea, vomiting or heartburn Neuro Neuro: Negative for dizziness, lightheadedness, near syncope, headache(s) or weakness Endo Endo: Negative for fatigue Cardiology Exam Const Appearance: cooperative, healthy appearing, comfortable and no acute distress Nutritional Appearan (more content not included)... Normal [facility] PSA, total screeningOrdered By: Harry Felder on 09-16-2024 Prostate Specific Antigen Screen 1.09 ng/mL 0.02-4.00 [facility] Comment on above: This test was perfor med using the [employer] tPSA method. Measured values of a patient sample can vary depending on the testing procedure used. PSA values determined on patient samples by different testing procedures cannot be used interchangeably. If there is a change in PSA assays while monitoring therapy, sequential testing should be performed to confirm baseline values. PSA,Total - Annual Screenon 09-16-2024 PSA,TOT SCREEN 1.09 ng/mL Normal 0.02-4.00 [facility] Comment on above: Result Comment: This test was performed using the [employer] tPSA method. Measured values of a patient??sample can vary depending on the testing procedure used. PSA values determined on patient samples by different testing procedures cannot be used interchangeably. If there is a change in PSA assays while monitoring therapy, sequential testing should be performed to confirm baseline values. Performed By: Rajesh### L 501.9910 #### [facility] [address] [place], [address] Transferrinon 09-08-2024 Transferrin [Mass/Vol] 252 mg/dL Normal 177-329 [facility] Comment on above: Order Comment: Order Date: 07/19/24 Order Info: 3034-6 - TRF Result Comment: Perf ormed at: - [facility] [address] [id number] Dairy Farmworker: Joshua Galvan PhD, Phone: [phone] Performed By: #### L 503.3772, Q003.5627, I6560.4333 #### [facility] [address] [place], [address] Anion gap in Serum or Plasma Ordered By: Harry Felder on 09-07-2024 Anion gap [Moles/Vol] 13 mmol/L - [facility] BUN/creatinine ratioOrdered By: Harry Felder on 09-07-2024 Urea nitrogen/Creatinine [Mass ratio] 12.5 mg/mg - [facility] Basic Metabolic Profile (BMP )on 09-07-2024 BUN/CRE 12.5 RATIO Normal - [facility] Comment on above: Order Comment: CLEAN CATCH Performed By: #### L 400.0001 #### [facility] [address] [place], [address] Calcium [Mass/Vol] 9.7 mg/dL Normal 7.6-11.0 [facility] Comment on above: Order Comment: CLEAN CATCH Performed By: #### L 400.0001 #### [facility] [address] [place], [address] Chloride [Moles/Vol] 102 mmol/L Normal 98-108 [facility] Comment on above: Order Comment: CLEAN CATCH Performed By: #### L 400.0001 #### [facility] [address] [place], [address] CO2 [Moles/Vol] 24.0 mmol/L Normal 21.0-32.0 [facility] Comment on above: Order Comment: CLEAN CATCH Performed By: #### L 400.0001 #### [facility] [address] [place], [address] Creatinine [Mass/Vol] 1.10 mg/dL Normal 0.70-1.20 [facility] Comment on above: Order Comment: CLEAN CATCH Performed By: #### L 400.0001 #### [facility] [address] [place], [address] GAP 13 Normal 5-15 [facility] Comment on above: Order Comment: CLEAN CATCH Performed By: #### L 400.0001 #### [facility] [address] [place], [address] GFR/1.73 sq M.predicted among non-blacks MDRD (S/P/Bld) [Vol rate/Area] 79 mL/min/{1.73_m2} Normal >60 [facility] Comment on above: Order Comment: CLEAN CATCH Result Comment: mL/m in/1.73m2 CKD-EPI Creatinine Equation (2020) Performed By: #### L 400.0001 #### [facility] [address] [place], [address] Glucose [Mass/Vol] 109 mg/dL High 70-99 [facility] Comment on above: Order Comment: CLEAN CATCH Performed By: #### L 400.0001 #### [facility] [address] [place], [address] Potassium [Moles/Vol] 4.8 mmol/L Normal 3.3-5.1 [facility] Comment on above: Order Comment: CLEAN CATCH Performed By: #### L 400.0001 #### [facility] [address] [place], [address] Sodium [Moles/Vol] 139 mmol/L Normal 133-145 [facility] Comment on above: Order Comment: CLEAN CATCH Performed By: #### L 400.0001 #### [facility] [address] [place], [address] Urea nitrogen [Mass/Vol] 14 mg/dL Normal 4-19 [facility] Comment on above: Order Comment: CLEAN CATCH Performed By: #### L 400.0001 #### [facility] [address] [place], [address] Carbon dioxide, total [Moles /volume] in Central venous bloodOrdered By: Harry Felder on 09-07-2024 CO2 [Moles/Vol] 24.0 mmol/L 21.0-32.0 [facility] Chloride assayOrdered By: Amanda Felder on 09-07-2024 Chloride [Moles/Vol] 102 mmol/L 98-108 [facility] Ferritinon 09-07-2024 Ferritin [Mass/Vol] 294 ng/mL Normal 37-417 [facility] Comment on above: Order Comment: Order Date: 07/19/24 Order Info: [id number] - BMP Order Info: [id number] - FE Order Info: [id number] - ABIOLA Performed By: #### L 503.6550, L503.6150, L3400.3800 #### [facility] [address] [place], [address] GFR/1.73 sq M.predicted anastacia g non-blacks MDRD (S/P/Bld) [Vol rate/Area]Ordered By: Harry Felder on 09-07-2024 Estimated GFR (MDRD) Non-Af Amer 79 >60 [facility] Comment on above: mL/min/1.73m2 CKD-EP I Creatinine Equation (2020) Glomerular filtration rate ( GFR) estimation/1.73 sq m using serum, plasma, or whole bOrdered By: Harry Felder on 09-07-2024 GFR/1.73 sq M.predicted among non-blacks MDRD (S/P/Bld) [Vol rate/Area] 79 mL/min/{1.73_m2} >60 [facility] Comment on above: mL/min/1.73m2 CKD-EP I Creatinine Equation (2020) Ironon 09-07-2024 Iron [Mass/Vol] 61 ug/dL Low 65-175 [facility] Comment on above: Order Comment: Order Date: 07/19/24 Order Info: [id number] - BMP Order Info: [id number] - FE Order Info: [id number] - ABIOLA Performed By: #### L 503.6550, L503.6150, L3400.3800 #### [facility] [address] [place], [address] Iron (Unsp spec) [Mass/Mass] Ordered By: Harry Felder on 09-07-2024 Iron [Mass/Vol] 61 ug/dL Low 65-175 [facility] Iron measurement (mass/mass) Ordered By: Harry Felder on 09-07-2024 Iron (Unsp spec) [Mass/Mass] 61 ug/dL Low 65-175 [facility] Potassium (Unsp spec) [Mass/ Vol]Ordered By: Harry Felder on 09-07-2024 Potassium [Moles/Vol] 4.8 mmol/L 3.3-5.1 [facility] Potassium measurement (mass/ volume)Ordered By: Harry Felder on 09-07-2024 Potassium (Unsp spec) [Mass/Vol] 4.8 mmol/L 3.3-5.1 [facility] Serum creatinine measurement (mass/volume)Ordered By: Harry Felder on 09-07-2024 Creatinine [Mass/Vol] 1.10 mg/dL 0.70-1.20 [facility] Serum glucose measurement (m ass/volume)Ordered By: Harry Felder on 09-07-2024 Glucose [Mass/Vol] 109 mg/dL High 70-99 [facility] Serum or plasma calcium colton urement (mass/volume)Ordered By: Harry Felder on 09-07-2024 Calcium [Mass/Vol] 9.7 mg/dL 7.6-11.0 [facility] Serum or plasma ferritin gino surement (mass/volume)Ordered By: Harry Felder on 09-07-2024 Ferritin [Mass/Vol] 294 ng/mL 37-417 [facility] Serum or plasma urea nitroge n measurement (mass/volume)Ordered By: Harry Felder on 09-07-2024 Urea nitrogen [Mass/Vol] 14 mg/dL 4-19 [facility] Sodium levelOrdered By: Harry Felder on 09-07-2024 Sodium [Moles/Vol] 139 mmol/L 133-145 [facility] TransferrinOrdered By: Harry Felder on 09-07-2024 Transferrin [Mass/Vol] 252 mg/dL 177-329 [facility] Comment on above: Performed at: [address] [id number] Director: Joshua Galvan PhD, Phone: [phone] CBC W/Diff, Automatedon 06-12 PATH REV Reviewed Normal [facility] Comment on above: Order Comment: CLEAN CATCH Result Comment: Poly cythemia Clinical correlation necessary. Guille Castillo M.D. 06/24/24 AMENDED REPORT 06/24/24 1333 PATH REV previously reported as: October martina Performed By: #### L 400.0001 #### [facility] [address] [place] [address]. [place], [address] Absolute neutrophil countOrd ered By: Harry Felder on 06-22-2024 Neutrophils (Bld) [#/Vol] 4.2 10*3/uL 2.0-7.7 [facility] Albumin to globulin ratioOrd ered By: Harry Felder on 06-22-2024 Albumin/Globulin [Mass ratio] 1.0 {ratio} 0.9-2.4 [facility] Bacteria LM.HPF (Urine sed) [#/Area]Ordered By: Harry Felder on 06-22-2024 Urine Bacteria RARE /hpf None Seen [facility] Basophil percentageOrdered B y: Harry Felder on 06-22-2024 Basophils/100 WBC (Bld) 0.9 % [facility] Test strip Ql (U)O rdered By: Harry Felder on 06-22-2024 Bilirubin Ql (U) Negative Negative [facility] Bilirubin, totalOrdered By: Harry Felder on 06-22-2024 Bilirubin [Mass/Vol] 0.60 mg/dL 0.20-1.00 [facility] Comment on above: For patients on eltr ombopag therapy, use of Dimension [place] TBIL is not recommended. Blood urea nitrogen (BUN)/cr eatinine ratioOrdered By: Harry Felder on 06-22-2024 Urea nitrogen/Creatinine [Mass ratio] 15.4 mg/mg 10-20 [facility] Carbon dioxide measurementOr dered By: Harry Felder on 06-22-2024 CO2 [Moles/Vol] 26.0 mmol/L 21.0-32.0 [facility] Chloride measurementOrdered By: Harry Felder on 06-22-2024 Chloride [Moles/Vol] 107 mmol/L 98-107 [facility] Comprehensive Metabolic Prof ilon 06-22-2024 Albumin [Mass/Vol] 3.7 g/dL Normal 3.2-5.0 [facility] Comment on above: Order Comment: CLEAN CATCH Performed By: #### L 400.0001 #### [facility] [address] [place] [address] Albumin/Globulin [Mass ratio] 1.0 {ratio} Normal 0.9-2.4 [facility] Comment on above: Order Comment: CLEAN CATCH Performed By: #### L 400.0001 #### [facility] [address] [place] [address] ALK P 60 U/L Normal 45-117 [facility] Comment on above: Order Comment: CLEAN CATCH Performed By: #### L 400.0001 #### [facility] [address] [facility] [address] ALT [Catalytic activity/Vol] 17 U/L Normal 16-61 [facility] Comment on above: Order Comment: CLEAN CATCH Performed By: #### L 400.0001 #### [facility] [address] [facility] [address] AST [Catalytic activity/Vol] 10 U/L Low 15-37 [facility] Comment on above: Order Comment: CLEAN CATCH Performed By: #### L 400.0001 #### [facility] [address] [place], [address] Bilirubin [Mass/Vol] 0.60 mg/dL Normal 0.20-1.00 [facility] Comment on above: Order Comment: CLEAN CATCH Result Comment: For patients on eltrombopag therapy, use of Dimension [place] TBIL is not recommended. Performed By: #### L 400.0001 #### [facility] [address] [place], [address] BUN/CRE 15.4 RATIO Normal 10-20 [facility] Comment on above: Order Comment: CLEAN CATCH Performed By: #### L 400.0001 #### [facility] [address] [place], [address] CA,Total 9.1 mg/dL Normal 8.5-10.1 [facility] Comment on above: Order Comment: CLEAN CATCH Performed By: #### L [id number] #### [facility] [address] [place], [address] Chloride [Moles/Vol] 107 mmol/L Normal 98-107 [facility] Comment on above: Order Comment: CLEAN CATCH Performed By: #### L [id number] #### [facility] [address] [place], [address] CO2 [Moles/Vol] 26.0 mmol/L Normal 21.0-32.0 [facility] Comment on above: Order Comment: CLEAN CATCH Performed By: #### L [id number] #### [facility] [address] [place], [address] Creatinine [Mass/Vol] 1.36 mg/dL High 0.70-1.30 [facility] Comment on above: Order Comment: CLEAN CATCH Result Comment: The validity of the calculated GFR GFRAA in patients over 70 years has not been determined. Clinical correlation is essential. Performed By: #### L [id number] #### [facility] [address] [place], [address] EST GFR - AA 70 mL/min Normal >60 [facility] Comment on above: Order Comment: CLEAN CATCH Result Comment: Afri can Mauritanian GFR Calc Performed By: #### L [id number] #### [facility] [address] [place], [address] GAP 5 Normal 5-15 [facility] Comment on above: Order Comment: CLEAN CATCH Performed By: #### L [id number] #### [facility] [address] [place], [address] GFR/1.73 sq M.predicted among non-blacks MDRD (S/P/Bld) [Vol rate/Area] 58 mL/min/{1.73_m2} Low >60 [facility] Comment on above: Order Comment: CLEAN CATCH Result Comment: Non- GFR Calc Performed By: #### L [id number] #### [facility] [address] [place], [address] Globulin (S) [Mass/Vol] 3.7 g/dL Normal 2.2-4.2 [facility] Comment on above: Order Comment: CLEAN CATCH Performed By: #### L [id number] #### [facility] [address] [place], [address] Glucose [Mass/Vol] 125 mg/dL High 74-106 [facility] Comment on above: Order Comment: CLEAN CATCH Result Comment: Fast ing Glucose result from 100 to 125 mg/dL suggests IMPAIRED HOMEOSTASIS per A.D.A. criteria. Performed By: #### L [id number] #### [facility] [address] [place], [address] Potassium [Moles/Vol] 4.6 mmol/L Normal 3.5-5.1 [facility] Comment on above: Order Comment: CLEAN CATCH Performed By: #### L [id number] #### [facility] [address] [place], [place], [phone] Sodium [Moles/Vol] 138 mmol/L Normal 136-145 [facility] Comment on above: Order Comment: CLEAN CATCH Performed By: #### L [id number] #### [facility] [address] [place], [place], [id number] T PROT 7.4 g/dL Normal 6.4-8.2 [facility] Comment on above: Order Comment: CLEAN CATCH Performed By: #### L [id number] #### [facility] [address] [place], [place], [phone] Urea nitrogen [Mass/Vol] 21 mg/dL High 7-18 [facility] Comment on above: Order Comment: CLEAN CATCH Performed By: #### L [id number] #### [facility] [address] [place], [place], [address] Eosinophil percentageOrdered By: Harry Felder on 06-22-2024 Eosinophils/100 WBC (Bld) 3.7 % 0-5 [facility] Epithelial cells.squamous LM Ql (Urine sed)Ordered By: Harry Felder on 06-22-2024 Epithelial cells.squamous LM.HPF (Urine sed) [#/Area] 0 /[HPF] 0-5 [facility] Erythrocyte distribution wid th (RBC) [Ratio]Ordered By: Harry Felder on 06-22-2024 Erythrocyte distribution width (RBC) [Entitic vol] 43.9 fL 35.1-43.9 [facility] Erythrocyte distribution wid th ratioOrdered By: Harry Felder on 06-22-2024 Erythrocyte distribution width (RBC) [Ratio] 14.2 % 11.6-14.6 [facility] Estimated glomerular filtrat ion rate (GFR) AmericanOrdered By: Harry Felder on 06-22-2024 Estimated GFR (MDRD) Amer 70 mL/min >60 [facility] Comment on above: GFR Calc Glomerular filtration rate ( GFR) estimationOrdered By: Harry Felder on 06-22-2024 Estimated GFR (MDRD) Non-Af Amer 58 mL/min Low >60 [facility] Comment on above: Non- GFR Calc Glucose Ql (U)Ordered By: Amanda Felder on 06-22-2024 Glucose (U) [Mass/Vol] 1000 mg/dL High Normal [facility] Glucose measurementOrdered B y: Harry Felder on 06-22-2024 Glucose [Mass/Vol] 125 mg/dL High 74-106 [facility] Comment on above: Fasting Glucose resu lt from 100 to 125 mg/dL suggests IMPAIRED HOMEOSTASIS per A.D.A. criteria. Hematocrit Auto (Bld) [Volum e fraction]Ordered By: Harry Felder on 06-22-2024 Hematocrit (Bld) [Volume fraction] 53.2 % 40-54 [facility] Hemoglobin A1con 06-22-2024 HbA1c (Bld) [Mass fraction] 5.8 % High 3.8-5.6 [facility] Comment on above: Order Comment: CLEAN CATCH Result Comment: Norm al < 5.7 % Prediabetic 5.7 - 6.4 % Diabetic >or= 6.5 % Please note range changes. Performed By: #### L [id number] #### [facility] [address] [place] [address]. [place], [address] Hemoglobin A1c percentageOrd ered By: Harry Felder on 06-22-2024 HbA1c (Bld) [Mass fraction] 5.8 % High 3.8-5.6 [facility] Comment on above: Normal < 5.7 % Predi abetic 5.7 - 6.4 % Diabetic >or= 6.5 % Please note range changes. Hemoglobin measurementOrdere d By: Harry Felder on 06-22-2024 Hemoglobin (Bld) [Mass/Vol] 18.0 g/dL High 13.0-16.5 [facility] Comment on above: CRITICAL VALUE POOL D TO DR. LIU06/22/24 0843 Ella Kinsey.RESULTS READ BACK BY . High density lipoprotein (HD L) measurementOrdered By: Harry Felder on 06-22-2024 Cholesterol in HDL [Mass/Vol] 38 mg/dL Low >40 [facility] Comment on above: The drugs N-Acetylcy steine and Metamizole may falsely depress this assay. Reference Range HDL <40 mg/dL Low HDL Cholesterol HDL >or= 60 mg/dL High HDL Cholesterol Immature granulocytes/100 WB C Auto (Bld)Ordered By: Harry Felder on 06-22-2024 Immature granulocytes/100 WBC (Bld) 1.100 % High 0.0-0.9 [facility] Comment on above: IG% - Immature Granu locytes (promyelocytes, myelocytes and metamyelocytes) > 1% indicates that a LEFT SHIFT is Present. Ketones Test strip Ql (U)Ord ered By: Harry Felder on 06-22-2024 Ketones Ql (U) Negative Negative [facility] - Chemistry and C hemistry - challengeOrdered By: Harry Felder on 06-22-2024 AST [Catalytic activity/Vol] 10 U/L Low 15-37 [facility] Lipid Profileon 06-22-2024 Cholesterol [Mass/Vol] 101 mg/dL Normal 200 [facility] Comment on above: Order Comment: CLEAN CATCH Result Comment: <200 mg/dL Desirable 200-240 mg/dL Borderline >240 mg/dL High Risk Performed By: #### L [id number] #### [facility] [address] [facility] [address] Cholesterol in HDL [Mass/Vol] 38 mg/dL Low [facility] Comment on above: Order Comment: CLEAN CATCH Result Comment: The drugs N-Acetylcysteine and Metamizole may falsely depress this assay. Reference Range HDL <40 mg/dL Low HDL Cholesterol HDL >or= 60 mg/dL High HDL Cholesterol Performed By: #### L [id number] #### [facility] [address] [facility] [address] Cholesterol in LDL [Mass/Vol] 38 mg/dL Normal 0-130 [facility] Comment on above: Order Comment: CLEAN CATCH Performed By: #### L [id number] #### [facility] [address] [facility] [id number] Cholesterol in VLDL [Mass/Vol] 25 mg/dL Normal 5-40 [facility] Comment on above: Order Comment: CLEAN CATCH Performed By: #### L [id number] #### [facility] [address] [place], [place], [phone] Triglyceride [Mass/Vol] 127 mg/dL Normal [facility] Comment on above: Order Comment: CLEAN CATCH Result Comment: The drugs N-Acetylcysteine and Metamizole may falsely depress this assay. Serum Triglycerides Reference Interval Normal <150 mg/dL Borderline high 150 - 199 mg/dL High 200 - 499 mg/dL Very High > or = 500 mg/dL Performed By: #### L [id number] #### [facility] [address] [place], [address] Low density lipoprotein (LDL ) cholesterol measurementOrdered By: Harry Felder on 06-22-2024 Cholesterol in LDL [Mass/Vol] 38 mg/dL 0-130 [facility] Lymphocytes Auto (Unsp spec) [#/Vol]Ordered By: Harry Felder on 06-22-2024 Lymphocytes (Bld) [#/Vol] 1.72 10*3/uL 0.83-4.5 1 [facility] Lymphocytes/100 WBC Auto (Un sp spec)Ordered By: Harry Felder on 06-22-2024 Lymphocytes/100 WBC (Bld) 23.3 % 19-41 [facility] MCV (mean corpuscular volume ) determinationOrdered By: Harry Felder on 06-22-2024 MCV (RBC) [Entitic vol] 86.2 fL 80-94 [facility] Magnesiumon 06-22-2024 Magnesium [Mass/Vol] 2.1 mg/dL Normal 1.6-2.6 [facility] Comment on above: Order Comment: CLEAN CATCH Performed By: #### L [id number] #### [facility] [address] [place], [address] Magnesium measurementOrdered By: Harry Felder on 06-22-2024 Magnesium [Mass/Vol] 2.1 mg/dL 1.6-2.6 [facility] Mean corpuscular hemoglobin (MCH) determinationOrdered By: Harry Felder on 06-22-2024 MCH (RBC) [Entitic mass] 29.2 pg 27.0-32.0 [facility] Mean corpuscular hemoglobin concentration (MCHC) determinationOrdered By: Harry Felder on 06-22-2024 MCHC (RBC) [Mass/Vol] 33.8 g/dL 32-36 [facility] Mean platelet volume determi nationOrdered By: Harry Felder on 06-22-2024 Platelet mean volume (Bld) [Entitic vol] 9.1 fL 6.2-12.0 [facility] Microalb:Creat Ratio,Random URon 06-22-2024 Creatinine [Mass/Vol] 64.60 mg/dL Normal NO RAN GE EST. [facility] Comment on above: Order Comment: CLEAN CATCH Performed By: #### L [id number] #### [facility] [address] [place], [place], [id number] MALB:CRE 108.8 mg/g CRE High <30 mg/g CRE [facility] Comment on above: Order Comment: CLEAN CATCH Performed By: #### L [id number] #### [facility] [address] [place], [place], [address] MICROALBUMIN,UR 70.3 mg/L Normal NO RANGE EST. [facility] Comment on above: Order Comment: CLEAN CATCH Performed By: #### L [id number] #### [facility] [address] [place], [place], [address] Microscopic analysis of urin e for red blood cells (RBC)Ordered By: Harry Felder on 06-22-2024 Urine RBC 0 SEEN /hpf 0-5 [facility] Monocyte percentageOrdered B y: Harry Felder on 06-22-2024 Monocytes/100 WBC (Bld) 13.8 % High 0-10 [facility] Mucus LM Ql (Urine sed)Order ed By: Harry Felder on 06-22-2024 Mucus Ql (Urine sed) 0 SEEN /hpf [facility] Neutrophil percentageOrdered By: Harry Felder on 06-22-2024 Neutrophils/100 WBC (Bld) 57.2 % 47-70 [facility] Nitrite Test strip Ql (U)Ord ered By: Harry Felder on 06-22-2024 Nitrite Ql (U) Negative Negative [facility] Nucleated red blood cell per centageOrdered By: Harry Felder on 06-22-2024 Nucleated RBC/100 WBC (Bld) [Ratio] 0 % 0-5 [facility] Pathologist review Ryan (Unsp spec) [Interp]Ordered By: Harry Felder on 06-22-2024 Differential Pathologist's Review Reviewed [facility] Comment on above: Previous reported re sult: Sarai mack Edited by: ANNELIESE on 06/24/24:1333PolycythemiaClinical correlation necessary.Guille Castillo M.D. 06/24/24 AMENDED REPORT 06/24/24 1333 PATH REV previously reported as: Sarai mack Platelet countOrdered By: Amanda Felder on 06-22-2024 Platelets (Bld) [#/Vol] 251 10*3/uL 150-450 [facility] Potassium measurementOrdered By: Harry Felder on 06-22-2024 Potassium [Moles/Vol] 4.6 mmol/L 3.5-5.1 [facility] Protein Test strip Ql (U)Ord ered By: Harry Felder on 06-22-2024 Protein Ql (U) 30 mg/dl High Negative [facility] RBC Auto (Bld) [#/Vol]Ordere d By: Harry Felder on 06-22-2024 RBC (Bld) [#/Vol] 6.17 10*6/uL 4.6-6.2 [facility] Random urine microalbumin me asurementOrdered By: Harry Felder on 06-22-2024 Urine Random Microalbumin 70.3 mg/L NO RANGE EST. [facility] Serum anion gap measurementO rdered By: Harry Felder on 06-22-2024 Anion gap [Moles/Vol] 5 mmol/L 5-15 [facility] Serum globulin measurementOr dered By: aHrry Felder on 06-22-2024 Globulin (S) [Mass/Vol] 3.7 g/dL 2.2-4.2 [facility] Serum or plasma alanine sung otransferase (ALT) measurementOrdered By: Harry Felder on 06-22-2024 ALT [Catalytic activity/Vol] 17 U/L 16-61 [facility] Serum or plasma albumin colton urement (mass/volume)Ordered By: Harry Felder on 06-22-2024 Albumin [Mass/Vol] 3.7 g/dL 3.2-5.0 [facility] Serum or plasma alkaline jeniffer sphatase measurementOrdered By: Harry Felder on 06-22-2024 ALP [Catalytic activity/Vol] 60 U/L 45-117 [facility] Serum or plasma calcium colton urement (mass/volume)Ordered By: Harry Felder on 06-22-2024 Calcium [Mass/Vol] 9.1 mg/dL 8.5-10.1 [facility] Serum or plasma cholesterol measurement (mass/volume)Ordered By: Harry Felder on 06-22-2024 Cholesterol [Mass/Vol] 101 mg/dL <200 [facility] Comment on above: <200 mg/dL Desirable 200-240 mg/dL Borderline >240 mg/dL High Risk Serum or plasma creatinine m easurement (mass/volume)Ordered By: Harry Felder on 06-22-2024 Creatinine [Mass/Vol] 1.36 mg/dL High 0.70-1.30 [facility] Comment on above: The validity of the calculated GFR & GFRAA in patients over 70 years has not been determined. Clinical correlation is essential. Serum or plasma urea nitroge n measurement (mass/volume)Ordered By: Harry Felder on 06-22-2024 Urea nitrogen [Mass/Vol] 21 mg/dL High 7-18 [facility] Sodium levelOrdered By: Harry Felder on 06-22-2024 Sodium [Moles/Vol] 138 mmol/L 136-145 [facility] Total proteinOrdered By: Sidney Felder on 06-22-2024 Protein [Mass/Vol] 7.4 g/dL 6.4-8.2 [facility] Triglycerides measurementOrd ered By: Harry Felder on 06-22-2024 Triglyceride [Mass/Vol] 127 mg/dL <199 [facility] Comment on above: The drugs N-Acetylcy steine and Metamizole may falsely depress this assay.Serum Triglycerides Reference Interval Normal <150 mg/dL Borderline high 150 - 199 mg/dL High 200 - 499 mg/dL Very High > or = 500 mg/dL Urinalysis, Completeon 06-22 BACTERIA RARE Normal None Seen [facility] Comment on above: Order Comment: Urine , Random Performed By: #### L [id number] #### [facility] [address] [place], [address] EPI,SQUAMOUS 0-5 SEEN Normal 0-5 [facility] Comment on above: Order Comment: Urine , Random Performed By: #### L [id number] #### [facility] [address] [place], [address] WBC 0-5 SEEN Normal 0-5 [facility] Comment on above: Order Comment: Urine , Random Performed By: #### L [id number] #### [facility] [address] [place], [address] Mucus Ql (Urine sed) 0 SEEN Normal [facility] Comment on above: Order Comment: Urine , Random Performed By: #### L [id number] #### [facility] [address] [place], [address] RBC 0 SEEN Normal 0-5 [facility] Comment on above: Order Comment: Urine , Random Performed By: #### L [id number] #### [facility] [address] [place], [address] Urine albumin/creatinine rat io for detection of microalbuminuriaOrdered By: Harry Felder on 06-22-2024 Urine Microalbumin/Creatinine Ratio 108.8 mg/g CRE High <30 [facility] Urine blood detectionOrdered By: Harry Felder on 06-22-2024 Urine Occult Blood Negative Negative [facility] Urine clarityOrdered By: Sidney Felder on 06-22-2024 Clarity (U) Clear Clear [facility] Urine color determinationOrd ered By: Harry Felder on 06-22-2024 Color (U) Straw Yellow [facility] Urine creatinine measurement (mass/volume)Ordered By: Harry Felder on 06-22-2024 Creatinine (U) [Mass/Vol] 64.60 mg/dL NO RANGE EST. [facility] Urine leukocyte esterase det ection by dipstickOrdered By: Harry Felder on 06-22-2024 Leukocyte esterase Test strip Ql (U) Negative Negative [facility] Urine pHOrdered By: Harry her on 06-22-2024 pH (U) 6.0 [pH] 5.0 - 8.0 [facility] Urine specific gravity measu rementOrdered By: Harry Felder on 06-22-2024 Specific gravity (U) [Rel density] 1.010 1.002-1.03 0 [facility] Urobilinogen Ql (U)Ordered B y: Harry Felder on 06-22-2024 Urine Urobilinogen Normal mg/dl Normal [facility] Very low density lipoprotein (VLDL) cholesterol measurementOrdered By: Harry Felder on 06-22-2024 VLDL Cholesterol 25 mg/dL 5-40 [facility] White blood cell (WBC) count Ordered By: Harry Felder on 06-22-2024 WBC (Bld) [#/Vol] 7.4 10*3/uL 4.4-11.0 [facility] White blood cell countOrdere d By: Harry Felder on 06-22-2024 Urine WBC 0-5 SEEN /hpf 0-5 [facility] CBC W/Diff, Automatedon 10-1 Absolute Lymph 2.16 X10 3/uL Normal 0.83-4.51 [facility] Comment on above: Order Comment: Order Date: 07/19/24 Order Info: 0667-1 - BMP Order Info: 2498-4 - FE Order Info: 2276-4 - ABIOLA Performed By: #### L 503.6550, [id number], [id number] #### [facility] [address] [place], [place], [id number] Absolute Neut 4.5 X10 3/uL Normal 2.0-7.7 [facility] Comment on above: Order Comment: Order Date: 07/19/24 Order Info: 666-06 - BMP Order Info: 2497-09 Order Info: 2275-09 - ABIOLA Performed By: #### L 503.6550, [id number], [id number] #### [facility] [address] [place], [place], [id number] Basophils/100 WBC (Bld) 0.9 % Normal 0-1 [facility] Comment on above: Order Comment: Order Date: 07/19/24 Order Info: 666-06 - BMP Order Info: 2497-09 Order Info: 2275-09 - ABIOLA Performed By: #### L 503.6550, [id number], [id number] #### [facility] [address] [place], [place], [phone] Eosinophils/100 WBC (Bld) 2.6 % Normal 0-5 [facility] Comment on above: Order Comment: Order Date: 07/19/24 Order Info: 666-06 - BMP Order Info: 2497-09 Order Info: 2275-09 - ABIOLA Performed By: #### L 503.6550, [id number], [id number] #### [facility] [address] [place], [place], [id number] Erythrocyte distribution width (RBC) [Ratio] 13.5 % Normal 11.6-14.6 [facility] Comment on above: Order Comment: Order Date: 07/19/24 Order Info: 666-06 - BMP Order Info: 2497-09 Order Info: 2275-09 - ABIOLA Performed By: #### L 503.6550, [id number], [id number] #### [facility] [address] [place], [place], [phone] ([phone] Hematocrit (Bld) [Volume fraction] 52.8 % Normal 40-54 [facility] Comment on above: Order Comment: Order Date: 07/19/24 Order Info: 666-06 - BMP Order Info: 2497-09 Order Info: 2275-09 ABIOLA Performed By: #### L 503.6550, [id number], [id number] #### [facility] [address] [place], [place], [address] Hemoglobin (Bld) [Mass/Vol] 17.6 g/dL High 13.0-16.5 [facility] Comment on above: Order Comment: Order Date: 07/19/24 Order Info: 666-06 - BMP Order Info: 2497-09 Order Info: 2275-09 ABIOLA Performed By: #### L 503.6550, [id number], [id number] #### [facility] [address] [place], [place], [id number] IG% 1.000 High 0.0-0.9 [facility] Comment on above: Order Comment: Order Date: 07/19/24 Order Info: 666-06 - BMP Order Info: 2497-09 Order Info: 2275-09 ABIOLA Result Comment: IG% - Immature Granulocytes (promyelocytes, myelocytes and metamyelocytes) > 1% indicates that a LEFT SHIFT is Present. Performed By: #### L 503.6550, [id number], [id number] #### [facility] [address] [place], [place], [phone] Lymphocytes/100 WBC (Bld) 27.0 % Normal 19-41 [facility] Comment on above: Order Comment: Order Date: 07/19/24 Order Info: 666-06 - BMP Order Info: 2497-09 Order Info: 2275-09 ABIOLA Performed By: #### L 503.6550, [id number], [id number] #### [facility] [address] [place], [place], [phone] MCH (RBC) [Entitic mass] 28.9 pg Normal 27.0-32.0 [facility] Comment on above: Order Comment: Order Date: 07/19/24 Order Info: 666-06 Order Info: 2497-09 Order Info: 2275-09 - ABIOLA Performed By: #### L 503.6550, [id number], [id number] #### [facility] [address] [place], [address] MCHC (RBC) [Mass/Vol] 33.3 g/dL Normal 32-36 [facility] Comment on above: Order Comment: Order Date: 07/19/24 Order Info: 666-06 BMP Order Info: 2497-09 Order Info: 2275-09 - ABIOLA Performed By: #### L 503.6550, [id number], [id number] #### [facility] [address] [place], [address] MCV (RBC) [Entitic vol] 86.6 fL Normal 80-94 [facility] Comment on above: Order Comment: Order Date: 07/19/24 Order Info: 666-06 Order Info: 2497-09 Order Info: 2275-09 - ABIOLA Performed By: #### L 503.6550, [id number], [id number] #### [facility] [address] [place], [address] Monocytes/100 WBC (Bld) 12.6 % High 0-10 [facility] Comment on above: Order Comment: Order Date: 07/19/24 Order Info: 666-06 BMP Order Info: 2497-09 Order Info: 2275-09 - ABIOLA Performed By: #### L 503.6550, [id number], [id number] #### [facility] [address] [place], [address] Neutrophils/100 WBC (Bld) 55.9 % Normal 47-70 [facility] Comment on above: Order Comment: Order Date: 07/19/24 Order Info: 666-06 - BMP Order Info: 2497-09 Order Info: 2275-09 ABIOLA Performed By: #### L 503.6550, [id number], [id number] #### [facility] [address] [place], [address] Nucleated RBC (Bld) [#/Vol] 0 10*3/uL Normal 0-5 [facility] Comment on above: Order Comment: Order Date: 07/19/24 Order Info: 666-06 - BMP Order Info: 2497-09 Order Info: 2275-09 - ABIOLA Performed By: #### L 503.6550, [id number], [id number] #### [facility] [address] [place], [place], [phone] ([phone] Platelet mean volume (Bld) [Entitic vol] 9.2 fL Normal 6.2-12.0 [facility] Comment on above: Order Comment: Order Date: 07/19/24 Order Info: 666-06 - BMP Order Info: 2497-09 Order Info: 2275-09 - ABIOLA Performed By: #### L 503.6550, [id number], [id number] #### [facility] [address] [place], [address] Platelets (Bld) [#/Vol] 236 10*3/uL Normal 150-450 [facility] Comment on above: Order Comment: Order Date: 07/19/24 Order Info: 666-06 - BMP Order Info: 2497-09 Order Info: 2275-09 - ABIOLA Performed By: #### L 503.6550, [id number], [id number] #### [facility] [address] [place], [address] RBC (Bld) [#/Vol] 6.10 10*6/uL Normal 4.6-6.2 [facility] Comment on above: Order Comment: Order Date: 07/19/24 Order Info: 0667 - BMP Order Info: 2497-09 Order Info: 2275-09 ABIOLA Performed By: #### L 503.6550, [id number], [id number] #### [facility] [address] [place], [place], [address] RDW SD 41.7 fl Normal 35.1-43.9 [facility] Comment on above: Order Comment: Order Date: 07/19/24 Order Info: 666-06 - BMP Order Info: 2497-09 Order Info: 2275-09 - ABIOLA Performed By: #### L 503.6550, [id number], [id number] #### [facility] [address] [place], [address] WBC (Bld) [#/Vol] 8.0 10*3/uL Normal 4.4-11.0 [facility] Comment on above: Order Comment: Order Date: 07/19/24 Order Info: 06 - BMP Order Info: 2497-09 Order Info: 2275-09 ABIOLA Performed By: #### L 503.6550, [id number], [id number] #### [facility] [address] [place], [place], [id number] Comprehensive Metabolic Prof ilon 03-23-2024 Albumin [Mass/Vol] 3.8 g/dL Normal 3.2-5.0 [facility] Comment on above: Order Comment: Order Date: 07/19/24 Order Info: 0667-1 - BMP Order Info: 2497-09 Order Info: 2275-09 - ABIOLA Performed By: #### L 503.6550, [id number], [id number] #### [facility] [address] [place], [place], [address] Albumin/Globulin [Mass ratio] 1.1 {ratio} Normal 0.9-2.4 [facility] Comment on above: Order Comment: Order Date: 07/19/24 Order Info: 666-06 - BMP Order Info: 2497-09 Order Info: 2275-09 - ABIOLA Performed By: #### L 503.6550, L503.6150, [id number] #### [facility] [address] [place], [address] ALK P 54 U/L Normal 45-117 [facility] Comment on above: Order Comment: Order Date: 07/19/24 Order Info: 666-06 - BMP Order Info: 2497-09 Order Info: 2275-09 - ABIOLA Performed By: #### L 503.6550, L503.6150, L3400.3800 #### [facility] [address] [place], [address] ALT [Catalytic activity/Vol] 19 U/L Normal 16-61 [facility] Comment on above: Order Comment: Order Date: 07/19/24 Order Info: 666-06 - BMP Order Info: 2497-09 Order Info: 2275-09 - ABIOLA Performed By: #### L 503.6550, L503.6150, L3400.3800 #### [facility] [address] [place], [address] AST [Catalytic activity/Vol] 14 U/L Low 15-37 [facility] Comment on above: Order Comment: Order Date: 07/19/24 Order Info: 666-06 - BMP Order Info: 2497-09 Order Info: 2275-09 - ABIOLA Performed By: #### L 503.6550, L503.6150, L3400.3800 #### [facility] [address] [place], [address] Bilirubin [Mass/Vol] 0.50 mg/dL Normal 0.20-1.00 [facility] Comment on above: Order Comment: Order Date: 07/19/24 Order Info: 06 - BMP Order Info: 2497-09 - Order Info: 2275- - ABIOLA Result Comment: For patients on eltrombopag therapy, use of Dimension [place] TBIL is not recommended. Performed By: #### L 503.6550, L503.6150, L3400.3800 #### [facility] [address] [place], [address] BUN/CRE 15.3 RATIO Normal 10-20 [facility] Comment on above: Order Comment: Order Date: 07/19/24 Order Info: 06 - BMP Order Info: 2497-09 - FE Order Info: 2275-09 - ABIOLA Performed By: #### L 503.6550, L503.6150, L3400.3800 #### [facility] [address] [place], [address] CA,Total 9.4 mg/dL Normal 8.5-10.1 [facility] Comment on above: Order Comment: Order Date: 07/19/24 Order Info: 06 - BMP Order Info: 2497-09 Order Info: 2275-09 - ABIOLA Performed By: #### L 503.6550, L503.6150, L3400.3800 #### [facility] [address] [place], [address] Chloride [Moles/Vol] 107 mmol/L Normal 98-107 [facility] Comment on above: Order Comment: Order Date: 07/19/24 Order Info: 06 - BMP Order Info: 2497-09 - Order Info: 2275-09 - ABIOLA Performed By: #### L 503.6550, L503.6150, L3400.3800 #### [facility] [address] [place], [address] CO2 [Moles/Vol] 27.0 mmol/L Normal 21.0-32.0 [facility] Comment on above: Order Comment: Order Date: 07/19/24 Order Info: 06- - BMP Order Info: 2497-09 - Order Info: 2275-09 - ABIOLA Performed By: #### L 503.6550, L503.6150, L3400.3800 #### [facility] [address] [place], [place], [id number] Creatinine [Mass/Vol] 1.24 mg/dL Normal 0.70-1.30 [facility] Comment on above: Order Comment: Order Date: 07/19/24 Order Info: 06- - BMP Order Info: 2497-09 Order Info: 2275-09 - ABIOLA Result Comment: The validity of the calculated GFR GFRAA in patients over 70 years has not been determined. Clinical correlation is essential. Performed By: #### L 503.6550, L503.6150, L3400.3800 #### [facility] [address] [place], [place], [address] EST GFR - AA 78 mL/min Normal >60 [facility] Comment on above: Order Comment: Order Date: 07/19/24 Order Info: 666-06 - BMP Order Info: 2497-09 Order Info: 2275-09 - ABIOLA Result Comment: Afri can [place] GFR Calc Performed By: #### L 503.6550, L503.6150, L3400.3800 #### [facility] [address] [place], [address] GAP 5 Normal 5-15 [facility] Comment on above: Order Comment: Order Date: 07/19/24 Order Info: 666-06 - BMP Order Info: 2497-09 Order Info: 2275-09 ABIOLA Performed By: #### L 503.6550, L503.6150, L3400.3800 #### [facility] [address] [place], [place], [id number] GFR/1.73 sq M.predicted among non-blacks MDRD (S/P/Bld) [Vol rate/Area] 64 mL/min/{1.73_m2} Normal >60 [facility] Comment on above: Order Comment: Order Date: 07/19/24 Order Info: 666-06 BMP Order Info: 2497-09 Order Info: 2275-09 - ABIOLA Result Comment: Non- GFR Calc Performed By: #### L 503.6550, L503.6150, L3400.3800 #### [facility] [address] [place], [address] Globulin (S) [Mass/Vol] 3.6 g/dL Normal 2.2-4.2 [facility] Comment on above: Order Comment: Order Date: 07/19/24 Order Info: 06 - BMP Order Info: 2497-09 Order Info: 2275-09 - ABIOLA Performed By: #### L 503.6550, L503.6150, L3400.3800 #### [facility] [address] [place], [address] Glucose [Mass/Vol] 122 mg/dL High 74-106 [facility] Comment on above: Order Comment: Order Date: 07/19/24 Order Info: 06 - BMP Order Info: 2497-09 Order Info: 2275-09 - ABIOLA Result Comment: Fast ing Glucose result from 100 to 125 mg/dL suggests IMPAIRED HOMEOSTASIS per A.D.A. criteria. Performed By: #### L 503.6550, [id number], L3400.3800 #### [facility] [address] [place], [address] Potassium [Moles/Vol] 5.1 mmol/L Normal 3.5-5.1 [facility] Comment on above: Order Comment: Order Date: 07/19/24 Order Info: 0667-1 - BMP Order Info: 2497-09 Order Info: 2275-09 ABIOLA Performed By: #### L 503.6550, L503.6150, L3400.3800 #### [facility] [address] [place], [address] Sodium [Moles/Vol] 140 mmol/L Normal 136-145 [facility] Comment on above: Order Comment: Order Date: 07/19/24 Order Info: 06 - BMP Order Info: 2497-09 Order Info: 2275-09 - ABIOLA Performed By: #### L 503.6550, L503.6150, L3400.3800 #### [facility] [address] [place], [place], [address] T PROT 7.4 g/dL Normal 6.4-8.2 [facility] Comment on above: Order Comment: Order Date: 07/19/24 Order Info: 666-06 - BMP Order Info: 2497-09 Order Info: 2275-09 - ABIOLA Performed By: #### L 503.6550, L503.6150, L3400.3800 #### [facility] [address] [place], [place], [phone] Urea nitrogen [Mass/Vol] 19 mg/dL High 7-18 [facility] Comment on above: Order Comment: Order Date: 07/19/24 Order Info: 666-06 - [facility] Order Info: 2497-09 Order Info: 2275-09 - ABIOLA Performed By: #### L 503.6550, L503.6150, L3400.3800 #### [facility] [address] [place], [place], [address] Hemoglobin A1con 03-23-2024 HbA1c (Bld) [Mass fraction] 6.4 % High 3.8-5.6 [facility] Comment on above: Order Comment: Order Date: 07/19/24 Order Info: 666-06 - [facility] Order Info: 2497-09 Order Info: 2275-09 - ABIOLA Result Comment: Norm al < 5.7 % Prediabetic 5.7 - 6.4 % Diabetic >or= 6.5 % Please note range changes. Performed By: #### L 503.6550, L503.6150, L3400.3800 #### [facility] [address] [place], [place], [address] Lipid Profileon 03-23-2024 Cholesterol [Mass/Vol] 112 mg/dL Normal 200 [facility] Comment on above: Order Comment: Order Date: 07/19/24 Order Info: 666-06 Order Info: 2497-09 Order Info: 2275-09 - ABIOLA Result Comment: <200 mg/dL Desirable 200-240 mg/dL Borderline >240 mg/dL High Risk Performed By: #### L 503.6550, L503.6150, L3400.3800 #### [facility] [address] [place], [address] Cholesterol in HDL [Mass/Vol] 41 mg/dL Normal [facility] Comment on above: Order Comment: Order Date: 07/19/24 Order Info: 666-06 Order Info: 2497-09 Order Info: 2275-09 - ABIOLA Result Comment: The drugs N-Acetylcysteine and Metamizole may falsely depress this assay. Reference Range HDL <40 mg/dL Low HDL Cholesterol HDL >or= 60 mg/dL High HDL Cholesterol Performed By: #### L [id number], L503.6150, L3400.3800 #### [facility] [address] [place], [address] Cholesterol in LDL [Mass/Vol] 51 mg/dL Normal 0-130 [facility] Comment on above: Order Comment: Order Date: 07/19/24 Order Info: 666-06 BMP Order Info: 2497-09 Order Info: 2275-09 - ABIOLA Performed By: #### L [id number], L503.6150, L3400.3800 #### [facility] [address] [place], [address] Cholesterol in VLDL [Mass/Vol] 20 mg/dL Normal 5-40 [facility] Comment on above: Order Comment: Order Date: 07/19/24 Order Info: 666-06 Order Info: 2497-09 Order Info: 2275-09 - ABIOLA Performed By: #### L 5036550, L503.6150, L3400.3800 #### [facility] [address] [place], [address] Triglyceride [Mass/Vol] 102 mg/dL Normal [facility] Comment on above: Order Comment: Order Date: 07/19/24 Order Info: 0667-1 - BMP Order Info: 2498-4 - FE Order Info: 2276-4 - ABIOLA Result Comment: The drugs N-Acetylcysteine and Metamizole may falsely depress this assay. Serum Triglycerides Reference Interval Normal <150 mg/dL Borderline high 150 - 199 mg/dL High 200 - 499 mg/dL Very High > or = 500 mg/dL Performed By: #### L 503.6550, L503.6150, L3400.3800 #### [facility] [address] [place], [address] Urinalysis, Completeon 03-23 EPI,SQUAMOUS 0-5 SEEN Normal 0-5 [facility] Comment on above: Order Comment: CLEAN CATCH Performed By: #### L 400.0001 #### [facility] [address] [place], [address] WBC 0-5 SEEN Normal 0-5 [facility] Comment on above: Order Comment: CLEAN CATCH Performed By: #### L 400.0001 #### [facility] [address] [place], [address] BACTERIA 0 SEEN Normal None Seen [facility] Comment on above: Order Comment: CLEAN CATCH Performed By: #### L 400.0001 #### [facility] [address] [place], [address] Mucus Ql (Urine sed) 0 SEEN Normal [facility] Comment on above: Order Comment: CLEAN CATCH Performed By: #### L 400.0001 #### [facility] [address] [place], [address] RBC 0 SEEN Normal 0-5 [facility] Comment on above: Order Comment: CLEAN CATCH Performed By: #### L 400.0001 #### [facility] [address] [place], [place], [phone] CBC W/Diff, Automatedon 07-0 2-2024 Absolute Lymph 1.80 X10 3/uL Normal 0.83-4.51 [facility] Comment on above: Order Comment: Order Date: 07/19/24 Order Info: 06 - BMP Order Info: 2497-09 Order Info: 2275-09 - ABIOLA Performed By: #### L 503.6550, L503.6150, L3400.3800 #### [facility] [address] [place], [address] Absolute Neut 3.5 X10 3/uL Normal 2.0-7.7 [facility] Comment on above: Order Comment: Order Date: 07/19/24 Order Info: 666-06 - BMP Order Info: 2497-09 Order Info: 2275-09 - ABIOLA Performed By: #### L 503.6550, L503.6150, L3400.3800 #### [facility] [address] [place], [place], [phone] (720) Basophils/100 WBC (Bld) 0.8 % Normal 0-1 [facility] Comment on above: Order Comment: Order Date: 07/19/24 Order Info: 666-06 - BMP Order Info: 2497-09 Order Info: 2275-09 - ABIOLA Performed By: #### L 503.6550, L503.6150, L3400.3800 #### [facility] [address] [place], [address] Eosinophils/100 WBC (Bld) 4.8 % Normal 0-5 [facility] Comment on above: Order Comment: Order Date: 07/19/24 Order Info: 666-06 - BMP Order Info: 2497-09 Order Info: 2275-09 - ABIOLA Performed By: #### L 503.6550, L503.6150, L3400.3800 #### [facility] [address] [place], [address] Erythrocyte distribution width (RBC) [Ratio] 14.0 % Normal 11.6-14.6 [facility] Comment on above: Order Comment: Order Date: 07/19/24 Order Info: 666-06 Order Info: 2497-09 Order Info: 2275-09 ABIOLA Performed By: #### L 503.6550, L503.6150, L3400.3800 #### [facility] [address] [place], [place], [address] Hematocrit (Bld) [Volume fraction] 50.2 % Normal 40-54 [facility] Comment on above: Order Comment: Order Date: 07/19/24 Order Info: 666-06 Order Info: 2497-09 Order Info: 2275-09 - ABIOLA Performed By: #### L 503.6550, L503.6150, L3400.3800 #### [facility] [address] [place], [place], [address] Hemoglobin (Bld) [Mass/Vol] 16.8 g/dL High 13.0-16.5 [facility] Comment on above: Order Comment: Order Date: 07/19/24 Order Info: 666-06 Order Info: 2497-09 Order Info: 2275-09 ABIOLA Performed By: #### L 503.6550, L503.6150, L3400.3800 #### [facility] [address] [place], [place], [address] IG% 1.400 High 0.0-0.9 [facility] Comment on above: Order Comment: Order Date: 07/19/24 Order Info: 666-06 Order Info: 2497-09 Order Info: 2275-09 ABIOLA Result Comment: IG% - Immature Granulocytes (promyelocytes, myelocytes and metamyelocytes) > 1% indicates that a LEFT SHIFT is Present. Performed By: #### L 503.6550, L503.6150, L3400.3800 #### [facility] [address] [place], [address] Lymphocytes/100 WBC (Bld) 27.7 % Normal 19-41 [facility] Comment on above: Order Comment: Order Date: 07/19/24 Order Info: 666-06 Order Info: 2497-09 Order Info: 2275-09 - ABIOLA Performed By: #### L 503.6550, L503.6150, L3400.3800 #### [facility] [address] [place], [place], [phone] (172 MCH (RBC) [Entitic mass] 29.1 pg Normal 27.0-32.0 [facility] Comment on above: Order Comment: Order Date: 07/19/24 Order Info: 666-06 BMP Order Info: 2497-09 Order Info: 2275-09 - ABIOLA Performed By: #### L 503.6550, L503.6150, L3400.3800 #### [facility] [address] [place], [place], [phone] ([address] MCHC (RBC) [Mass/Vol] 33.5 g/dL Normal 32-36 [facility] Comment on above: Order Comment: Order Date: 07/19/24 Order Info: 666-06 BMP Order Info: 2497-09 Order Info: 2275-09 - ABIOLA Performed By: #### L 503.6550, L503.6150, L3400.3800 #### [facility] [address] [place], [place], [phone] ([address] MCV (RBC) [Entitic vol] 86.9 fL Normal 80-94 [facility] Comment on above: Order Comment: Order Date: 07/19/24 Order Info: 666-06 Order Info: 2497-09 Order Info: 2275-09 - ABIOLA Performed By: #### L 503.6550, L503.6150, L3400.3800 #### [facility] [address] [place], [address] Monocytes/100 WBC (Bld) 12.2 % High 0-10 [facility] Comment on above: Order Comment: Order Date: 07/19/24 Order Info: 666-06 Order Info: 2497-09 Order Info: 2275-09 - ABIOLA Performed By: #### L 503.6550, L503.6150, L3400.3800 #### [facility] [address] [place], [address] Neutrophils/100 WBC (Bld) 53.1 % Normal 47-70 [facility] Comment on above: Order Comment: Order Date: 07/19/24 Order Info: 666-06 BMP Order Info: 2497-09 Order Info: 2275-09 - ABIOLA Performed By: #### L 503.6550, L503.6150, L3400.3800 #### [facility] [address] [place], [place], [phone] (108) Nucleated RBC (Bld) [#/Vol] 0 10*3/uL Normal 0-5 [facility] Comment on above: Order Comment: Order Date: 07/19/24 Order Info: 666-06 BMP Order Info: 2497-09 Order Info: 2275-09 - ABIOLA Performed By: #### L 503.6550, L503.6150, L3400.3800 #### [facility] [address] [place], [place], [phone] (708) Platelet mean volume (Bld) [Entitic vol] 9.7 fL Normal 6.2-12.0 [facility] Comment on above: Order Comment: Order Date: 07/19/24 Order Info: 666-06 BMP Order Info: 2497-09 Order Info: 2275-09 - ABIOLA Performed By: #### L 503.6550, L503.6150, L3400.3800 #### [facility] [address] [place], [address] Platelets (Bld) [#/Vol] 236 10*3/uL Normal 150-450 [facility] Comment on above: Order Comment: Order Date: 07/19/24 Order Info: 0667-1 - BMP Order Info: 2497-09 Order Info: 2275-09 ABIOLA Performed By: #### L 503.6550, L503.6150, L3400.3800 #### [facility] [address] [place], [address] RBC (Bld) [#/Vol] 5.78 10*6/uL Normal 4.6-6.2 [facility] Comment on above: Order Comment: Order Date: 07/19/24 Order Info: 06671 - BMP Order Info: 2497-09 Order Info: 2275-09 - ABIOLA Performed By: #### L 503.6550, L503.6150, L3400.3800 #### [facility] [address] [place], [place], [address] RDW SD 44.6 fl High 35.1-43.9 [facility] Comment on above: Order Comment: Order Date: 07/19/24 Order Info: 0667-1 - BMP Order Info: 2497-09 Order Info: 2275-09 ABIOLA Performed By: #### L 503.6550, L503.6150, L3400.3800 #### [facility] [address] [place], [place], [address] WBC (Bld) [#/Vol] 6.5 10*3/uL Normal 4.4-11.0 [facility] Comment on above: Order Comment: Order Date: 07/19/24 Order Info: 0667-1 - BMP Order Info: 2497-09 Order Info: 2275-09 - ABIOLA Performed By: #### L 503.6550, L503.6150, L3400.3800 #### [facility] [address] [place], [place], [address] Comprehensive Metabolic Prof ilon 12-12-2023 Albumin [Mass/Vol] 3.5 g/dL Normal 3.2-5.0 [facility] Comment on above: Order Comment: Order Date: 07/19/24 Order Info: 666-06 - BMP Order Info: 2497-09 Order Info: 2275-09 - ABIOLA Performed By: #### L 503.6550, [id number], L3400.3800 #### [facility] [address] [place], [id number] Albumin/Globulin [Mass ratio] 0.9 {ratio} Normal 0.9-2.4 [facility] Comment on above: Order Comment: Order Date: 07/19/24 Order Info: 666-06 - BMP Order Info: 2497-09 Order Info: 2275-09 - ABIOLA Performed By: #### L 503.6550, [id number], L3400.3800 #### [facility] [address] [place], [phone] ALK P 53 U/L Normal 45-117 [facility] Comment on above: Order Comment: Order Date: 07/19/24 Order Info: 666-06 - BMP Order Info: 2497-09 Order Info: 2275-09 - ABIOLA Performed By: #### L 503.6550, [id number], L3400.3800 #### [facility] [address] [place], [address] ALT [Catalytic activity/Vol] 21 U/L Normal 16-61 [facility] Comment on above: Order Comment: Order Date: 07/19/24 Order Info: 666-06 - BMP Order Info: 2497-09 Order Info: 2275-09 - ABIOLA Performed By: #### L 503.6550, [id number], L3400.3800 #### [facility] [address] [place], [address] AST [Catalytic activity/Vol] 13 U/L Low 15-37 [facility] Comment on above: Order Comment: Order Date: 07/19/24 Order Info: 666-06 - BMP Order Info: 2497-09 Order Info: 2275-09 - ABIOLA Performed By: #### L 503.6550, L503.6150, L3400.3800 #### [facility] [address] [place], [address] Bilirubin [Mass/Vol] 0.50 mg/dL Normal 0.20-1.00 [facility] Comment on above: Order Comment: Order Date: 07/19/24 Order Info: 06- - BMP Order Info: 2497-09 - Order Info: 2275-09 - ABIOLA Result Comment: For patients on eltrombopag therapy, use of Dimension [place] TBIL is not recommended. Performed By: #### L 503.6550, L503.6150, L3400.3800 #### [facility] [address] [place], [address] BUN/CRE 18.1 RATIO Normal 10-20 [facility] Comment on above: Order Comment: Order Date: 07/19/24 Order Info: 06- - BMP Order Info: 2497-09 Order Info: 2275-09 - ABIOLA Performed By: #### L 503.6550, L503.6150, L3400.3800 #### [facility] [address] [place], [address] CA,Total 9.2 mg/dL Normal 8.5-10.1 [facility] Comment on above: Order Comment: Order Date: 07/19/24 Order Info: 06- - BMP Order Info: 2497-09 Order Info: 2275-09 - ABIOLA Performed By: #### L 503.6550, L503.6150, L3400.3800 #### [facility] [address] [place], [address] Chloride [Moles/Vol] 107 mmol/L Normal 98-107 [facility] Comment on above: Order Comment: Order Date: 07/19/24 Order Info: 0667- - BMP Order Info: 2497-09 Order Info: 2276-4 - ABIOLA Performed By: #### L 503.6550, L503.6150, L3400.3800 #### [facility] [address] [place], [address] CO2 [Moles/Vol] 23.0 mmol/L Normal 21.0-32.0 [facility] Comment on above: Order Comment: Order Date: 07/19/24 Order Info: 666-06 - BMP Order Info: 2497-09 Order Info: 2275-09 - ABIOLA Performed By: #### L 503.6550, L503.6150, L3400.3800 #### [facility] [address] [place], [place], [address] Creatinine [Mass/Vol] 1.05 mg/dL Normal 0.70-1.30 [facility] Comment on above: Order Comment: Order Date: 07/19/24 Order Info: 666-06 - BMP Order Info: 2497-09 Order Info: 2275-09 - ABIOLA Result Comment: The validity of the calculated GFR GFRAA in patients over 70 years has not been determined. Clinical correlation is essential. Performed By: #### L 503.6550, L503.6150, L3400.3800 #### [facility] [address] [place], [address] EST GFR - AA 94 mL/min Normal >60 [facility] Comment on above: Order Comment: Order Date: 07/19/24 Order Info: 666-06 - BMP Order Info: 2497-09 Order Info: 2275-09 Result Comment: Afri can [place] GFR Calc Performed By: #### L 503.6550, L503.6150, L3400.3800 #### [facility] [address] [place], [address] GAP 7 Normal 5-15 [facility] Comment on above: Order Comment: Order Date: 07/19/24 Order Info: 666-06 - BMP Order Info: 2497-09 Order Info: 2275-09 - ABIOLA Performed By: #### L 503.6550, L503.6150, L3400.3800 #### [facility] [address] [place], [address] GFR/1.73 sq M.predicted among non-blacks MDRD (S/P/Bld) [Vol rate/Area] 78 mL/min/{1.73_m2} Normal >60 [facility] Comment on above: Order Comment: Order Date: 07/19/24 Order Info: 06 - BMP Order Info: 2497-09 Order Info: 2275-09 - ABIOLA Result Comment: Non- GFR Calc Performed By: #### L 503.6550, L503.6150, L3400.3800 #### [facility] [address] [place], [address] Globulin (S) [Mass/Vol] 3.7 g/dL Normal 2.2-4.2 [facility] Comment on above: Order Comment: Order Date: 07/19/24 Order Info: 666-06 - BMP Order Info: 2497-09 Order Info: 2275-09 - ABIOLA Performed By: #### L 503.6550, L503.6150, L3400.3800 #### [facility] [address] [place], [address] Glucose [Mass/Vol] 176 mg/dL High 74-106 [facility] Comment on above: Order Comment: Order Date: 07/19/24 Order Info: 06- - BMP Order Info: 2497-09 Order Info: 2275-09 - ABIOLA Result Comment: Fast ing Glucose result greater than or equal to 126 mg/dL suggests DIABETES MELLITUS per A.D.A. criteria. Performed By: #### L 503.6550, L503.6150, L3400.3800 #### [facility] [address] [place], [address] Potassium [Moles/Vol] 4.1 mmol/L Normal 3.5-5.1 [facility] Comment on above: Order Comment: Order Date: 07/19/24 Order Info: 06 - BMP Order Info: 2497-09 Order Info: 2275-09 - ABIOLA Performed By: #### L 503.6550, L503.6150, L3400.3800 #### [facility] [address] [place], [place], [id number] Sodium [Moles/Vol] 137 mmol/L Normal 136-145 [facility] Comment on above: Order Comment: Order Date: 07/19/24 Order Info: 666-06 - BMP Order Info: 2497-09 Order Info: 2275-09 - ABIOLA Performed By: #### L 503.6550, [id number], L3400.3800 #### [facility] [address] [place], [place], [id number] T PROT 7.2 g/dL Normal 6.4-8.2 [facility] Comment on above: Order Comment: Order Date: 07/19/24 Order Info: 06 - BMP Order Info: 2497-09 Order Info: 2275-09 - ABIOLA Performed By: #### L 503.6550, [id number], L3400.3800 #### [facility] [address] [place], [address] Urea nitrogen [Mass/Vol] 19 mg/dL High 7-18 [facility] Comment on above: Order Comment: Order Date: 07/19/24 Order Info: 0667- - BMP Order Info: 2497-09 Order Info: 2275-09 - ABIOLA Performed By: #### L 503.6550, [id number], L3400.3800 #### [facility] [address] [place], [place], [address] Hemoglobin A1con 12-12-2023 HbA1c (Bld) [Mass fraction] 7.0 % High 3.8-5.6 [facility] Comment on above: Order Comment: Order Date: 07/19/24 Order Info: 666-06 Order Info: 2497-09 Order Info: 2275-09 - ABIOLA Result Comment: Norm al < 5.7 % Prediabetic 5.7 - 6.4 % Diabetic >or= 6.5 % Please note range changes. Performed By: #### L 503.6550, L503.6150, L3400.3800 #### [facility] [address] [place], [address] Lipid Profileon 12-12-2023 Cholesterol [Mass/Vol] 140 mg/dL Normal 200 [facility] Comment on above: Order Comment: Order Date: 07/19/24 Order Info: 666-06 Order Info: 2497-09 Order Info: 2275-09 - ABIOLA Result Comment: <200 mg/dL Desirable 200-240 mg/dL Borderline >240 mg/dL High Risk Performed By: #### L 503.6550, L503.6150, L3400.3800 #### [facility] [address] [place], [address] Cholesterol in HDL [Mass/Vol] 36 mg/dL Low [facility] Comment on above: Order Comment: Order Date: 07/19/24 Order Info: 666-06 Order Info: 2497-09 Order Info: 2275-09 - ABIOLA Result Comment: The drugs N-Acetylcysteine and Metamizole may falsely depress this assay. Reference Range HDL <40 mg/dL Low HDL Cholesterol HDL >or= 60 mg/dL High HDL Cholesterol Performed By: #### L 503.6550, L503.6150, L3400.3800 #### [facility] [address] [place], [address] Cholesterol in LDL [Mass/Vol] 51 mg/dL Normal 0-130 [facility] Comment on above: Order Comment: Order Date: 07/19/24 Order Info: 666-06 Order Info: 2497-09 Order Info: 2275-09 - ABIOLA Performed By: #### L 503.6550, L503.6150, L3400.3800 #### [facility] [address] [place], [place], [id number] Cholesterol in VLDL [Mass/Vol] 53 mg/dL High 5-40 [facility] Comment on above: Order Comment: Order Date: 07/19/24 Order Info: 666-06 - BMP Order Info: 2497-09 Order Info: 2275-09 - ABIOLA Performed By: #### L 503.6550, L503.6150, L3400.3800 #### [facility] [address] [place], [place], [id number] Triglyceride [Mass/Vol] 267 mg/dL High [facility] Comment on above: Order Comment: Order Date: 07/19/24 Order Info: 666-06 - BMP Order Info: 2497-09 Order Info: 2275-09 - ABIOLA Result Comment: The drugs N-Acetylcysteine and Metamizole may falsely depress this assay. Serum Triglycerides Reference Interval Normal <150 mg/dL Borderline high 150 - 199 mg/dL High 200 - 499 mg/dL Very High > or = 500 mg/dL Performed By: #### L 503.6550, L503.6150, L3400.3800 #### [facility] [address] [place], [place], [id number] Magnesiumon 12-12-2023 Magnesium [Mass/Vol] 1.9 mg/dL Normal 1.6-2.6 [facility] Comment on above: Order Comment: Order Date: 07/19/24 Order Info: 666-06 - BMP Order Info: 2497-09 Order Info: 2275-09 - ABIOLA Performed By: #### L 503.6550, L503.6150, L3400.3800 #### [facility] [address] [place], [place], [id number] Microalb:Creat Ratio,Random URon 12-12-2023 Creatinine [Mass/Vol] 78.50 mg/dL Normal NO RAN GE EST. [facility] Comment on above: Order Comment: Order Date: 07/19/24 Order Info: 06671 - BMP Order Info: 2497-09 Order Info: 2275-09 ABIOLA Performed By: #### L 503.6550, L503.6150, L3400.3800 #### [facility] [address] [place], [address] MALB:CRE 81.1 mg/g CRE High <30 mg/g CRE [facility] Comment on above: Order Comment: Order Date: 07/19/24 Order Info: 0667 - BMP Order Info: 2497-09 Order Info: 2275-09 ABIOLA Performed By: #### L 503.6550, L503.6150, L3400.3800 #### [facility] [address] [place], [address] MICROALBUMIN,UR 63.7 mg/L Normal NO RANGE EST. [facility] Comment on above: Order Comment: Order Date: 07/19/24 Order Info: 0667-1 - BMP Order Info: 2497-09 Order Info: 2275-09 ABIOLA Performed By: #### L 503.6550, L503.6150, L3400.3800 #### [facility] [address] [place], [address] Urinalysis, Completeon 12-11 BACTERIA 1+ /hpf Normal None Seen [facility] Comment on above: Order Comment: CLEAN CATCH Performed By: #### L 400.0001 #### [facility] [address] [place], [address] YEAST 1+ /hpf Normal None Seen [facility] Comment on above: Order Comment: CLEAN CATCH Performed By: #### L 400.0001 #### [facility] [address] [place], [address] EPI,SQUAMOUS 0-5 SEEN Normal 0-5 [facility] Comment on above: Order Comment: CLEAN CATCH Performed By: #### L 400.0001 #### [facility] [address] [place], [address] RBC 0-5 SEEN Normal 0-5 [facility] Comment on above: Order Comment: CLEAN CATCH Performed By: #### L 400.0001 #### [facility] [address] [place], [address] WBC 5-10 SEEN Normal 0-5 [facility] Comment on above: Order Comment: CLEAN CATCH Performed By: #### L 400.0001 #### [facility] [address] [place], [address] Mucus Ql (Urine sed) 0 SEEN Normal [facility] Comment on above: Order Comment: CLEAN CATCH Performed By: #### L 400.0001 #### [facility] [address] [place], [place], [address] CNOVon 11-27-2023 [facility] -------- SOHAIL THOMPSON ([id number]) 1965 M Date Time Provider Department 11/27/23 9:30 AM VANESSA GRULLON [facility] During your visit today, we recorded the following information about you: Temperature Pulse Respiration Blood pressure 98.6 degrees 101/minute 16/minute 144/76 Weight 196 kg Vanessa Grullon APRN.VECTOR CONTROL SPECIALIST 11/27/2023 10:53 AM Signed Subjective HPI HPI Sohail Thompson is a 58 year old male who presents today for CC of cough, congestion. This started few weeks ago, seen in express care dx pneumonia rx for augmentin and doxy 11/15. Has. Symptoms are worsened by nothing. Nonsmoker. Denies asthma. S/s are improving but not going away. .Patient presents with: Cough: Congestion . PAST MEDICAL HISTORY Diagnosis Date Gout High cholesterol Hypertension Neuropathy Type II or unspecified type diabetes mellitus without mention of complication, not stated as uncontrolled PAST SURGICAL HISTORY Procedure Laterality Date COLONOSCOPY 01/03/2022 repeat 10 years COLONOSCOPY SCREENING FOOT SURGERY HX PAST SURGICAL HISTORY OF 06/12/2005 Removal of infectious mass Rt groin ALLERGIES Patient has no known allergies. MEDICATIONS predniSONE (DELTASONE) 10 mg tablet Take 4 tabs daily for 3 days, then 2 tabs daily for 3 days, then 1 tab daily for 3 days with food. benzonatate (TESSALON PERLES) 100 mg capsule Take 1 capsule by mouth three times a day as needed for cough. amLODIPine-Atorvastatin 10-10 mg per tablet lisinopril (ZESTRIL) 5 mg tablet Magnesium Oxide 500 mg magnesium tab Take by mouth. rosuvastatin (CRESTOR) 10 mg tablet Take 10 mg by mouth once daily. allopurinol (ZYLOPRIM) 100 mg tablet Take 100 mg by mouth once daily. amLODIPine (NORVASC) 10 mg tablet Take 10 mg by mouth once daily. apixaban (ELIQUIS) 5 mg tab(s) Cinnamon Bark (CINNAMON) 500 mg cap empagliflozin (JARDIANCE) 25 mg tablet icosapent ethyl (VASCEPA) 1 gram capsule insulin detemir (LEVEMIR FLEXTOUCH U-100 INSULN SUBCUTANEOUS) icosapent ethyl (VASCEPA) 1 gram capsule Take 2 g by mouth twice daily with meals. sodium sulfate-potassium sulfate-magnesium sulfate (SUPREP BOWEL PREP KIT) 17.5-3.13-1.6 gram oral liquid Take according to instructions given with bowel prep kit metFORMIN 500 mg tablet Take 1,000 mg by mouth twice daily with meals. carvedilol (COREG) 25 mg tablet (Patient not taking: Reported on 11/27/2023) FAMILY HISTORY Problem Relation Age of Onset Diabetes Father Heart Father Heart Paternal Grandfather Diabetes Paternal Grandfather Social History Tobacco Use Smoking status: Never Smokeless tobacco: Never Vaping Use Vaping Use: Never used Substance Use Topics Alcohol use: Never Drug use: Never Review of Systems Constitutional: Negative for fever. HENT: Negative for congestion, ear pain, nosebleeds and sore throat. Respiratory: Positive for cough and wheezing. Negative for shortness of breath. Cardiovascular: Negative for chest pain. Musculoskeletal: Negative for neck pain. Objective Blood pressure 144/76, pulse 101, temperature 37 ?C (98.6 ?F), resp. rate 16, weight (!) 196 kg (432 lb 1.6 oz), SpO2 96%. Physical Exam Constitutional: General: He is not in acute distress. Appearance: He is not toxic-appearing or diaphoretic. HENT: Head: Normocephalic and atraumatic. Cardiovascular: Rate and Rhythm: Normal rate and regular rhythm. Heart sounds: Normal heart sounds, S1 normal and S2 normal. Pulmonary: Effort: Pulmonary effort is normal. Breath sounds: Wheezing (scattered bilat) present. No decreased breath sounds, rhonchi or rales. Neurological: Mental Status: He is alert and oriented to person, place, and time. Gait: Gait is intact. ASSESSMENT/PLAN: 1. Wheezing - ICD9: 786.07, ICD10: R06.2 (primary diagnosis) I advised trying inhaler first without steroid If s/s persist add in steroid. -If you experience chest pain/shortness of breath go to ER Advised to make appointment with pcp next week for f/u . - ALBUTEROL SULFATE HFA 90 MCG/ACTUATION AEROSOL INHALER - PREDNISONE 20 MG TABLET 2. Subacute cough - ICD9: 786.2, ICD10: R05.2 - XR CHEST 2V FRONTAL/LAT IMPRESSION: No acute radiographic abnormality. Dictated by : NATIVIDAD DAMIAN MD - ALBUTEROL SULFATE HFA 90 MCG/ACTUATION AEROSOL INHALER - PREDNISONE 20 MG TABLET Vanessa Grullon APRN.VECTOR CONTROL SPECIALIST Allergies As of Date: 11/27/2023 (No Known Allergies) Date Reviewed: 11/27/2023 Reviewed by: Lottie Tovar - Fully Assessed Reason for Visit: Cough [28] Cmt: Congestion . Primary Visit Diagnosis:Wheezing [R06.2] Other Visit Diagnosis:Subacute cough [R05.2] Order(s):XR CHEST 2V FRONTAL/LAT [[id number]] Order #: [id number]. #:[id number] albuterol HFA (PROVENTIL HFA, VENTOLIN HFA) 90 mcg/actuation inhalerInhale 2 Puffs as instructed every 4 hours as needed for whe (more content not included)... Normal [facility] XR CHEST 2V FRONTAL/LATon XR CHEST 2V FRONTAL/LAT * * *Final Repor t* * * DATE OF EXAM: Nov 27 2023 10:10AM WOX 5291 - XR CHEST 2V FRONTAL/LAT / PROCEDURE REASON: Subacute cough * * * * Physician Interpretation * * * * EXAMINATION: CHEST RADIOGRAPH (2 VIEW FRONTAL and LATERAL) CLINICAL HISTORY: Subacute cough MQ: XC2_6 EXAM DATE/TIME: 11/27/2023 10:10 AM COMPARISON: Chest x-ray 11/16/2023 RESULT: Lines, tubes, and devices: None. Lungs and pleura: No consolidation. No lung mass. No pleural effusion. No pneumothorax. Cardiomediastinal silhouette: Normal cardiomediastinal silhouette. Bones and soft tissues: Degenerative disease of the thoracic spine IMPRESSION: No acute radiographic abnormality. 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: [facility] Transcribe Date/Time: Nov 27 2023 10:14A Dictated by : NATIVIDAD DAMIAN MD This examination was interpreted and the report reviewed and electronically signed by: NATIVIDAD DAMIAN MD on Nov 27 2023 10:16AM EST [id number] Normal [facility] XR Chest PA and Lateralon IMPRESSION: No acute radiographic abnormality. 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: [facility] Transcribe Date/Time: Nov 27 2023 10:14A Dictated by : NATIVIDAD DAMIAN MD This examination was interpreted and the report reviewed and electronically signed by: NATIVIDAD DAMIAN MD on Nov 27 2023 10:16AM EST DIVISION OF RADIOLOGY * * *Final Report* * * DATE OF EXAM: Nov 27 2023 10:10AM WOX 5291 - XR CHEST 2V FRONTAL/LAT / PROCEDURE REASON: Subacute cough * * * * Physician Interpretation * * * * EXAMINATION: CHEST RADIOGRAPH (2 VIEW FRONTAL & LATERAL) CLINICAL HISTORY: Subacute cough MQ: XC2_6 EXAM DATE/TIME: 11/27/2023 10:10 AM COMPARISON: Chest x-ray 11/16/2023 RESULT: Lines, tubes, and devices: None. Lungs and pleura: No consolidation. No lung mass. No pleural effusion. No pneumothorax. Cardiomediastinal silhouette: Normal cardiomediastinal silhouette. Bones and soft tissues: Degenerative disease of the thoracic spine DIVISION OF RADIOLOGY Provider, [facility] - 11/27/2023 * * *Final Report* * * DATE OF EXAM: Nov 27 2023 10:10AM WOX 5291 - XR CHEST 2V FRONTAL/LAT / PROCEDURE REASON: Subacute cough * * * * Physician Interpretation * * * * EXAMINATION: CHEST RADIOGRAPH (2 VIEW FRONTAL & LATERAL) CLINICAL HISTORY: Subacute cough MQ: XC2_6 EXAM DATE/TIME: 11/27/2023 10:10 AM COMPARISON: Chest x-ray 11/16/2023 RESULT: Lines, tubes, and devices: None. Lungs and pleura: No consolidation. No lung mass. No pleural effusion. No pneumothorax. Cardiomediastinal silhouette: Normal cardiomediastinal silhouette. Bones and soft tissues: Degenerative disease of the thoracic spine IMPRESSION IMPRESSION: No acute radiographic abnormality. 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: [facility] Transcribe Date/Time: Nov 27 2023 10:14A Dictated by : NATIVIDAD DAMIAN MD This examination was interpreted and the report reviewed and electronically signed by: NATIVIDAD DAMIAN MD on Nov 27 2023 10:16AM EST [facility] Radiology Study observation (narrative) Viviana olivas [facility] XR Chest PA and LateralOrder ed By: [facility] Provider on 11-27-2023 [facility] CNOVon 11-16-2023 CNOV Office Visit ([facility] ) -------- SOHAIL THOMPSON ([id number]) 1965 M Date Time Provider Department 11/16/23 8:30 AM ELISA CELIS [facility] During your visit today, we recorded the following information about you: Temperature Pulse Respiration Blood pressure 98 degrees 78/minute 16/minute 138/78 Weight 196 kg Elisa Celis APRN.VECTOR CONTROL SPECIALIST 11/16/2023 10:44 AM Signed This note was created using NoteWriter. Subjective Sohail Thompson is a 58 year old male. Anatoly Thompson is a 58 year old male with a PMH of TONYA, T2DM, presenting today with complaints of a productive cough for 1.5 weeks. He states he abruptly started to feel garbage in his lungs and was able to hear audible crackles. He has also been producing green sputum. It is a constant cough. He originally had a sore throat but it has since resolved. He does complain of his diaphragm hurting when he has coughing fits. He has taken Nyquil for 1 week to no relief. No aggravating factors. He wears a BiPAP at night for his TONYA. No hx of COPD or asthma. He is not a smoker. He recently had an upper left arm abscess removed and was originally prescribed doxycycline and keflex, but switched to bactrim after 2 days. Finished taking his bactrim a few days ago. Endorses shortness of breath and diaphoresis, stating he has been waking up in a pool of sweat for the last couple days. Pertinent negatives: -fever -chills -n/v/d -chest pain Pertinent positives: +shortness of breath +cough +sore throat +diaphoresis +audible lung crackles The history is provided by the snf. Cough This is a new problem. The current episode started more than 1 week ago. The problem occurs constantly. The problem has been gradually worsening. The cough is Productive of sputum (green sputum). There has been no fever. Associated symptoms include sweats, sore throat and shortness of breath. Pertinent negatives include no chest pain, no chills, no weight loss, no ear congestion, no ear pain, no headaches, no rhinorrhea, no myalgias, no wheezing and no eye redness. Treatments tried: Nyquil. The treatment provided no relief. He is not a smoker. His past medical history does not include bronchitis, pneumonia, bronchiectasis, COPD, emphysema or asthma. PAST MEDICAL HISTORY Diagnosis Date Gout High cholesterol Hypertension Neuropathy Type II or unspecified type diabetes mellitus without mention of complication, not stated as uncontrolled PAST SURGICAL HISTORY Procedure Laterality Date COLONOSCOPY 01/03/2022 repeat 10 years COLONOSCOPY SCREENING FOOT SURGERY HX PAST SURGICAL HISTORY OF 06/12/2005 Removal of infectious mass Rt groin ALLERGIES Patient has no known allergies. MEDICATIONS amLODIPine-Atorvastatin 10-10 mg per tablet lisinopril (ZESTRIL) 5 mg tablet Magnesium Oxide 500 mg magnesium tab Take by mouth. rosuvastatin (CRESTOR) 10 mg tablet Take 10 mg by mouth once daily. allopurinol (ZYLOPRIM) 100 mg tablet Take 100 mg by mouth once daily. amLODIPine (NORVASC) 10 mg tablet Take 10 mg by mouth once daily. apixaban (ELIQUIS) 5 mg tab(s) Cinnamon Bark (CINNAMON) 500 mg cap empagliflozin (JARDIANCE) 25 mg tablet icosapent ethyl (VASCEPA) 1 gram capsule Take 2 g by mouth twice daily with meals. sodium sulfate-potassium sulfate-magnesium sulfate (SUPREP BOWEL PREP KIT) 17.5-3.13-1.6 gram oral liquid Take according to instructions given with bowel prep kit metFORMIN 500 mg tablet Take 1,000 mg by mouth twice daily with meals. predniSONE (DELTASONE) 10 mg tablet Take 4 tabs daily for 3 days, then 2 tabs daily for 3 days, then 1 tab daily for 3 days with food. benzonatate (TESSALON PERLES) 100 mg capsule Take 1 capsule by mouth three times a day as needed for cough. carvedilol (COREG) 25 mg tablet (Patient not taking: Reported on 10/28/2023) icosapent ethyl (VASCEPA) 1 gram capsule (Patient not taking: Reported on 12/20/2021 ) insulin detemir (LEVEMIR FLEXTOUCH U-100 INSULN SUBCUTANEOUS) FAMILY HISTORY Problem Relation Age of Onset Diabetes Father Heart Father Heart Paternal Grandfather Diabetes Paternal Grandfather Social History Tobacco Use Smoking status: Never Smokeless tobacco: Never Vaping Use Vaping Use: Never used Substance Use Topics Alcohol use: Never Drug use: Never Review of Systems Constitutional: Positive for diaphoresis. Negative for chills, fatigue, fever and weight loss. HENT: Positive for sore throat. Negative for congestion, ear discharge, ear pain, postnasal drip, rhinorrhea, sinus pressure, sinus pain, sneezing and trouble swallowing. Eyes: Negative for pain, discharge, redness and itching. Respiratory: Positive for cough and shortness of breath. Negative for chest tightness, wheezing and stridor. Audible crackles Cardiovascular: Negative for chest pain and palpitations. Gastrointestinal: Neg (more content not included)... Normal [facility] CNPNon 11-16-2023 CNPN Telephone ([facility]) -------- SOHAIL THOMPSON ([id number]) 1965 M Date Time Provider Department 11/16/23 ELISA CELIS [facility] During your visit today, we recorded the following information about you: Lynda Bauer, RN 11/16/2023 10:57 AM Signed Pt called in and was asking if his pneumonia was contagious. I let him know I would send a message through to provider and have them get back to him. Pt is asking when he can got back to work. He states he is off work today for a dentist appointment. Please call and advise Pt. Elisa Celis APRN.VECTOR CONTROL SPECIALIST 11/16/2023 11:12 AM Signed Reached out and spoke with patient. Discussed hand washing and disease prevention. Verbalized understanding. Allergies As of Date: 11/16/2023 (No Known Allergies) Date Reviewed: 11/16/2023 Reviewed by: Lottie Tovar - Fully Assessed Reason for Visit: Patient Question [9877] Prescriptions as of 11/16/2023 - predniSONE (DELTASONE) 10 mg tablet Take 4 tabs daily for 3 days, then 2 tabs daily for 3 days, then 1 tab daily for 3 days with food. - benzonatate (TESSALON PERLES) 100 mg capsule Take 1 capsule by mouth three times a day as needed for cough. - doxycycline monohydrate 100 mg tablet Take 1 tablet by mouth two times a day for 5 days. - amoxicillin-clavulanate potassium (AUGMENTIN) 875-125 mg per tablet Take 1 tablet by mouth two times a day for 5 days. - amLODIPine-Atorvastatin 10-10 mg per tablet - lisinopril (ZESTRIL) 5 mg tablet - Magnesium Oxide 500 mg magnesium tab Take by mouth. - rosuvastatin (CRESTOR) 10 mg tablet Take 10 mg by mouth once daily. - allopurinol (ZYLOPRIM) 100 mg tablet Take 100 mg by mouth once daily. - amLODIPine (NORVASC) 10 mg tablet Take [...] by mouth twice daily with meals. - sodium sulfate-potassium sulfate-magnesium sulfate (SUPREP BOWEL PREP KIT) 17.5-3.13-1.6 gram oral liquid Take according to instructions given with bowel prep kit - metFORMIN 500 mg tablet Take 1,000 mg by mouth twice daily with meals. Problem List As Of Date 11/16/2023 Noted Resolved A-fib (HCC) [I48.91] 12/20/2021 Diabetic foot ulcer (HCC) [E11.621, L97.509] 12/20/2021 Hyperlipidemia [E78.5] 12/20/2021 Hypertension associated with type 2 diabetes me*12/20/2021 Morbid obesity (HCC) [E66.01] 12/20/2021 Type 2 diabetes mellitus with neurologic compli*12/20/2021 TONYA (obstructive sleep apnea) [G47.33] 12/20/2021 History of colonic polyps [Z86.010] 12/20/2021 Encounter Status:Closed by ELISA CELIS on 11/16/23 Normal [facility] XR CHEST 2V FRONTAL/LATon XR CHEST 2V FRONTAL/LAT * * *Final Repor t* * * DATE OF EXAM: Nov 16 2023 9:11AM [id number] - XR CHEST 2V FRONTAL/LAT / PROCEDURE REASON: Acute cough * * * * Physician Interpretation * * * * EXAMINATION: CHEST RADIOGRAPH (2 VIEW FRONTAL and LATERAL) CLINICAL HISTORY: Acute cough MQ: XC2_6 EXAM DATE/TIME: 11/16/2023 9:11 AM COMPARISON: No relevant prior studies available. RESULT: Lines, tubes, and devices: None. Lungs and pleura: Streaky densities in the left infrahilar region. No pleural effusion or pneumothorax. Cardiomediastinal silhouette: Normal cardiomediastinal silhouette. 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: [facility] Transcribe Date/Time: Nov 16 2023 9:30A Dictated by : NATIVIDAD DAMIAN MD This examination was interpreted and the report reviewed and electronically signed by: NATIVIDAD DAMIAN MD on Nov 16 2023 9:32AM EST DIVISION OF RADIOLOGY * * *Final Report* * * DATE OF EXAM: Nov 16 2023 9:11AM [id number] - XR CHEST 2V FRONTAL/LAT / PROCEDURE REASON: Acute cough * * * * Physician Interpretation * * * * EXAMINATION: CHEST RADIOGRAPH (2 VIEW FRONTAL & LATERAL) CLINICAL HISTORY: Acute cough MQ: XC2_6 EXAM DATE/TIME: 11/16/2023 9:11 AM COMPARISON: No relevant prior studies available. RESULT: Lines, tubes, and devices: None. Lungs and pleura: Streaky densities in the left infrahilar region. No pleural effusion or pneumothorax. Cardiomediastinal silhouette: Normal cardiomediastinal silhouette. Bones and soft tissues: Degenerative disease of the thoracic spine DIVISION OF RADIOLOGY Provider, Slick Mobley - 11/16/2023 * * *Final Report* * * DATE OF EXAM: Nov 16 2023 9:11AM WRX [id number] - XR CHEST 2V FRONTAL/LAT / PROCEDURE REASON: Acute cough * * * * Physician Interpretation * * * * EXAMINATION: CHEST RADIOGRAPH (2 VIEW FRONTAL & LATERAL) CLINICAL HISTORY: Acute cough MQ: XC2_6 EXAM DATE/TIME: 11/16/2023 9:11 AM COMPARISON: No relevant prior studies available. RESULT: Lines, tubes, and devices: None. Lungs and pleura: Streaky densities in the left infrahilar region. No pleural effusion or pneumothorax. Cardiomediastinal silhouette: Normal cardiomediastinal silhouette. 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: [facility] Transcribe Date/Time: Nov 16 2023 9:30A Dictated by : NATIVIDAD DAMIAN MD This examination was interpreted and the report reviewed and electronically signed by: NATIVIDAD DAMIAN MD on Nov 16 2023 9:32AM EST [facility]ative[facility] and LateralOrder ed By: [facility] Provider on 11-16-2023 [facility] CNOVon 10-28-2023 CNOV Office Visit ([facility] ) -------- SOHAIL THOMPSON ([id number]) 1965 M Date Time Provider Department 10/28/23 10:45 AM GILL SCOTT [facility] During your visit today, we recorded the following information about you: Temperature Pulse Respiration Blood pressure 99.2 degrees 102/minute 18/minute 132/82 Weight 199.2 kg Gill Scott PA-C 10/28/2023 11:10 AM Signed This note was created using NoteWriter. Subjective Sohail Thompson is a 57 year old male. HPI Presents with a chief complaint of an infection on his left shoulder area. This has been going on for 2 to 3 days. He had pulled a skin tag off as he thought it was a hernandez. He denies fever or chills. He has had abscesses previously and skin infections. He is diabetic. No fever or chills. Review of Systems Constitutional: Negative. HENT: Negative. Respiratory: Negative. Cardiovascular: Negative. Gastrointestinal: Negative. Skin: Skin infection left shoulder/upper back All other systems reviewed and are negative. PAST MEDICAL HISTORY Diagnosis Date Gout High cholesterol Hypertension Neuropathy Type II or unspecified type diabetes mellitus without mention of complication, not stated as uncontrolled Current Outpatient Medications Medication Sig Dispense Refill lisinopril (ZESTRIL) 5 mg tablet rosuvastatin (CRESTOR) 10 mg tablet Take 10 mg by mouth once daily. allopurinol (ZYLOPRIM) 100 mg tablet Take 100 mg by mouth once daily. amLODIPine (NORVASC) 10 mg tablet Take 10 mg by mouth once daily. apixaban (ELIQUIS) 5 mg tab(s) Cinnamon Bark (CINNAMON) 500 mg cap empagliflozin (JARDIANCE) 25 mg tablet insulin detemir (LEVEMIR FLEXTOUCH U-100 INSULN SUBCUTANEOUS) icosapent ethyl (VASCEPA) 1 gram capsule Take 2 g by mouth twice daily with meals. metFORMIN 500 mg tablet Take 1,000 mg by mouth twice daily with meals. amLODIPine-Atorvastatin 10-10 mg per tablet Magnesium Oxide 500 mg magnesium tab Take by mouth. doxycycline (VIBRA-TABS) 100 mg tablet Take 1 tablet by mouth two times a day for 7 days. 14 tablet 0 cephALEXin (KEFLEX) 500 mg capsule Take 1 capsule by mouth four times daily for 7 days. 28 capsule 0 carvedilol (COREG) 25 mg tablet (Patient not taking: Reported on 10/28/2023) icosapent ethyl (VASCEPA) 1 gram capsule (Patient not taking: Reported on 12/20/2021 ) sodium sulfate-potassium sulfate-magnesium sulfate (SUPREP BOWEL PREP KIT) 17.5-3.13-1.6 gram oral liquid Take according to instructions given with bowel prep kit 1 Kit 0 No current facility-administered medications for this visit. PAST SURGICAL HISTORY Procedure Laterality Date COLONOSCOPY 01/03/2022 repeat 10 years COLONOSCOPY SCREENING FOOT SURGERY HX PAST SURGICAL HISTORY OF 06/12/2005 Removal of infectious mass Rt groin FAMILY HISTORY Problem Relation Age of Onset Diabetes Father Heart Father Heart Paternal Grandfather Diabetes Paternal Grandfather Social History Tobacco Use Smoking status: Never Smokeless tobacco: Never Vaping Use Vaping Use: Never used Substance Use Topics Alcohol use: Never Drug use: Never Objective BP 132/82 Pulse 102 Temp 37.3 ?C (99.2 ?F) Resp 18 Wt (!) 199.2 kg (439 lb 2.5 oz) SpO2 95% BMI 52.08 kg/m? Physical Exam Vitals reviewed. Constitutional: Appearance: Normal appearance. HENT: Head: Normocephalic and atraumatic. Musculoskeletal: Arms: Comments: Patient has erythema with induration to the posterior shoulder upper thoracic left back area. There is some faint surrounding erythema. No lymphangitic streaking. No fluctuance palpable superficially. Skin: General: Skin is warm and dry. Neurological: Mental Status: He is alert. Assessment and Plan ASSESSMENT/PLAN: 1. Skin infection - ICD9: 686.9, ICD10: L08.9 Patient has no superficial fluctuance that I can palpate. He also is on Eliquis, would not recommend incision being on blood thinner at [facility] at this point. I will place him on doxycycline and Keflex. Discussed however if this worsens he needs to be seen in the emergency department. I did offer to get him in in 2 days with general surgery however patient declined and will try to follow-up with his PCP. Patient agreeable with this plan. - CONSULT TO GENERAL SURGERY Gill Scott PA-C Allergies As of Date: 10/28/2023 (No Known Allergies) Date Reviewed: 10/28/2023 Reviewed by: Erika Nick MA - Fully Assessed Reason for Visit: Derm Problem [33] Cmt: cyst on left shoulder x 2 days Primary Visit Diagnosis:Skin infection [L08.9] Order(s):doxycycline (VIBRA-TABS) 100 mg tabletTake 1 tablet by mouth two times a day for 7 days.Disp: 14 tabletRfl: 0 cephALEXin (KEFLEX) 500 mg capsuleTake 1 capsule by mouth four times daily for 7 days.Disp: 28 capsuleRfl: 0 CONSULT TO GENERAL SURGERY [9011] Order #: [id number]: 1 FUTURE Prescriptions as of 10/10 (more content not included)... Normal [facility] Absolute lymphocyte countOrd ered By: Harry Felder on 09-16-2023 Lymphocytes Auto (Unsp spec) [#/Vol] 2.00 10*3/uL 0.83-4.51 [facility] Automated lymphocyte count a s percentage of total leukocytesOrdered By: Harry Bradford on 09-16-2023 Lymphocytes/100 WBC Auto (Unsp spec) 28.9 % 19-41 [facility] Basophil percentageOrdered B y: Harry Bradford on 09-16-2023 Basophils/100 WBC (Bld) 0.7 % 0-1 [facility] Bilirubin [Mass/Vol] 0.70 mg/dL 0.20-1.00 [facility] Comment on above: For patients on eltr ombopag therapy, use of Dimension [place] TBIL is not recommended. Chloride [Moles/Vol] 105 mmol/L 98-107 [facility] Cholesterol [Mass/Vol] 148 mg/dL <200 [facility] Comment on above: <200 mg/dL Desirable 200-240 mg/dL Borderline >240 mg/dL High Risk Eosinophils/100 WBC (Bld) 4.8 % 0-5 [facility] Glucose [Mass/Vol] 168 mg/dL 74-106 [facility] Comment on above: Fasting Glucose resu lt greater than or equal to 126 mg/dL suggests DIABETES MELLITUS per A.D.A. criteria. Hemoglobin (Bld) [Mass/Vol] 17.0 g/dL 13.0-16.5 [facility] Monocytes/100 WBC (Bld) 13.3 % 0-10 [facility] Neutrophils (Bld) [#/Vol] 3.5 10*3/uL 2.0-7.7 [facility] Neutrophils/100 WBC (Bld) 50.4 % 47-70 [facility] Potassium [Moles/Vol] 4.4 mmol/L 3.5-5.1 [facility] Protein [Mass/Vol] 7.2 g/dL 6.4-8.2 [facility] Sodium [Moles/Vol] 137 mmol/L 136-145 [facility] Triglyceride [Mass/Vol] 263 mg/dL <199 [facility] Comment on above: The drugs N-Acetylcy steine and Metamizole may falsely depress this assay.Serum Triglycerides Reference Interval Normal <150 mg/dL Borderline high 150 - 199 mg/dL High 200 - 499 mg/dL Very High > or = 500 mg/dL WBC (Bld) [#/Vol] 6.9 10*3/uL 4.4-11.0 [facility] Determination of erythrocyte mean corpuscular volume (MCV)Ordered By: Harry Felder on 09-16-2023 MCV (RBC) [Entitic vol] 87.9 fL 80-94 [facility] Erythrocyte distribution wid th ratioOrdered By: Harry Felder on 09-16-2023 Erythrocyte distribution width (RBC) [Ratio] 13.5 % 11.6-14.6 [facility] Erythrocyte distribution wid th standard deviationOrdered By: Harry Felder on 09-16-2023 Erythrocyte distribution width (RBC) [Entitic vol] 43.8 fL 35.1-43.9 [facility] Hematocrit Auto (Bld) [Volum e fraction]Ordered By: Harry Felder on 09-16-2023 Hematocrit (Bld) [Volume fraction] 51.4 % 40-54 [facility] Immature granulocytes/100 WB C Auto (Bld)Ordered By: Harry Felder on 09-16-2023 Immature granulocytes/100 WBC (Bld) 1.900 % 0.0-0.9 [facility] Comment on above: IG% - Immature Granu locytes (promyelocytes, myelocytes and metamyelocytes) > 1% indicates that a LEFT SHIFT is Present. Laboratory - Chemistry and C hemistry - challengeOrdered By: Harry Felder on 09-16-2023 Albumin/Globulin [Mass ratio] 0.9 {ratio} 0.9-2.4 [facility] ALP [Catalytic activity/Vol] 53 U/L 45-117 [facility] ALT [Catalytic activity/Vol] 28 U/L 16-61 [facility] Cholesterol in HDL [Mass/Vol] 40 mg/dL >40 [facility] Comment on above: The drugs N-Acetylcy steine and Metamizole may falsely depress this assay. Reference Range HDL <40 mg/dL Low HDL Cholesterol HDL >or= 60 mg/dL High HDL Cholesterol Cholesterol in LDL [Mass/Vol] 55 mg/dL 0-130 [facility] CO2 [Moles/Vol] 29.0 mmol/L 21.0-32.0 [facility] Globulin (S) [Mass/Vol] 3.7 g/dL 2.2-4.2 [facility] Magnesium [Mass/Vol] 1.9 mg/dL 1.6-2.6 [facility] Urea nitrogen/Creatinine [Mass ratio] 18.3 mg/mg 10-20 [facility] Laboratory - Hematology and Cell countsOrdered By: Harry Felder on 09-16-2023 MCH (RBC) [Entitic mass] 29.1 pg 27.0-32.0 [facility] MCHC (RBC) [Mass/Vol] 33.1 g/dL 32-36 [facility] Nucleated RBC/100 WBC (Bld) [Ratio] 0 % 0-5 [facility] Platelet mean volume (Bld) [Entitic vol] 9.6 fL 6.2-12.0 [facility] Platelets (Bld) [#/Vol] 201 10*3/uL 150-450 [facility] No Panel InformationOrdered By: Harry Felder on 09-16-2023 Estimated GFR (MDRD) Amer 85 mL/min >60 [facility] Comment on above: GFR Calc Estimated GFR (MDRD) Non-Af Amer 70 mL/min >60 [facility] Comment on above: Non- GFR Calc Urine Microalbumin/Creatinine Ratio 153.9 mg/g CRE <30 [facility] VLDL Cholesterol 53 mg/dL 5-40 [facility] RBC Auto (Bld) [#/Vol]Ordere d By: Harry Felder on 09-16-2023 RBC (Bld) [#/Vol] 5.85 10*6/uL 4.6-6.2 [facility] Serum or plasma calcium colton urement (mass/volume)Ordered By: Harry Felder on 09-16-2023 Calcium [Mass/Vol] 9.2 mg/dL 8.5-10.1 [facility] Serum or plasma creatinine m easurement (mass/volume)Ordered By: Harry Felder on 09-16-2023 Creatinine [Mass/Vol] 1.15 mg/dL 0.70-1.30 [facility] Comment on above: The validity of the calculated GFR & GFRAA in patients over 70 years has not been determined. Clinical correlation is essential. Serum or plasma urea nitroge n measurement (mass/volume)Ordered By: Harry Felder on 09-16-2023 Urea nitrogen [Mass/Vol] 21 mg/dL 7-18 [facility] Thin prep Papanicolaou smear with manual screeningOrdered By: Harry Felder on 09-16-2023 Thin prep Papanicolaou smear with manual screening 3.5 g/dL 3.2-5.0 [facility] Thin prep Papanicolaou smear with manual screening 16 U/L 15-37 [facility] Thin prep Papanicolaou smear with manual screening 3 5-15 [facility] Thin prep Papanicolaou smear with manual screening 58.5 mg/L NO RANGE EST. [facility] Urine creatinine measurement (mass/volume)Ordered By: Harry Felder on 09-16-2023 Creatinine (U) [Mass/Vol] 38.00 mg/dL NO RANGE EST. [facility] Whole blood hemoglobin A1c/t otal hemoglobin ratio (mass fraction)Ordered By: Harry Felder on 09-16-2023 HbA1c (Bld) [Mass fraction] 7.3 % 3.8-5.6 [facility] Comment on above: Normal < 5.7 % Predi abetic 5.7 - 6.4 % Diabetic >or= 6.5 % Please note range changes. Absolute lymphocyte countOrd ered By: Harry Felder on 06-17-2023 Lymphocytes Auto (Unsp spec) [#/Vol] 2.00 10*3/uL 0.83-4.51 [facility] Basophil percentageOrdered B y: Harry Felder on 06-17-2023 Basophils/100 WBC (Bld) 0.8 % 0-1 [facility] Bilirubin [Mass/Vol] 0.50 mg/dL 0.20-1.00 [facility] Comment on above: For patients on eltr ombopag therapy, use of Dimension [place] TBIL is not recommended. Chloride [Moles/Vol] 106 mmol/L 98-107 [facility] Cholesterol [Mass/Vol] 153 mg/dL <200 [facility] Comment on above: <200 mg/dL Desirable 200-240 mg/dL Borderline >240 mg/dL High Risk Eosinophils/100 WBC (Bld) 3.5 % 0-5 [facility] Glucose [Mass/Vol] 197 mg/dL 74-106 [facility] Comment on above: Fasting Glucose resu lt greater than or equal to 126 mg/dL suggests DIABETES MELLITUS per A.D.A. criteria. Neutrophils (Bld) [#/Vol] 4.4 10*3/uL 2.0-7.7 [facility] Neutrophils/100 WBC (Bld) 57.6 % 47-70 [facility] Potassium [Moles/Vol] 4.3 mmol/L 3.5-5.1 [facility] Protein [Mass/Vol] 7.5 g/dL 6.4-8.2 [facility] Sodium [Moles/Vol] 139 mmol/L 136-145 [facility] Triglyceride [Mass/Vol] 138 mg/dL <199 [facility] Comment on above: The drugs N-Acetylcy steine and Metamizole may falsely depress this assay.Serum Triglycerides Reference Interval Normal <150 mg/dL Borderline high 150 - 199 mg/dL High 200 - 499 mg/dL Very High > or = 500 mg/dL WBC (Bld) [#/Vol] 7.7 10*3/uL 4.4-11.0 [facility] Blood erythrocytes count (nu mber/volume)Ordered By: Harry Felder on 06-17-2023 RBC (Bld) [#/Vol] 6.19 10*6/uL 4.6-6.2 [facility] Blood hemoglobin measurement (mass/volume)Ordered By: Harry Felder on 06-17-2023 Hemoglobin (Bld) [Mass/Vol] 17.9 g/dL 13.0-16.5 [facility] Blood lymphocytes/100 leukoc ytesOrdered By: Harry Felder on 06-17-2023 Lymphocytes/100 WBC (Bld) 26.0 % 19-41 [facility] Blood monocytes/100 leukocyt esOrdered By: Harry Felder on 06-17-2023 Monocytes/100 WBC (Bld) 10.3 % 0-10 [facility] Blood platelet mean volumeOr dered By: Harry Felder on 06-17-2023 Platelet mean volume (Bld) [Entitic vol] 9.3 fL 6.2-12.0 [facility] Determination of erythrocyte mean corpuscular volume (MCV)Ordered By: Harry Felder on 06-17-2023 MCV (RBC) [Entitic vol] 86.1 fL 80-94 [facility] Hematocrit Auto (Bld) [Volum e fraction]Ordered By: Harry Felder on 06-17-2023 Hematocrit (Bld) [Volume fraction] 53.3 % 40-54 [facility] Laboratory - Chemistry and C hemistry - challengeOrdered By: Harry Fleder on 06-17-2023 ALP [Catalytic activity/Vol] 58 U/L 45-117 [facility] ALT [Catalytic activity/Vol] 28 U/L 16-61 [facility] CO2 [Moles/Vol] 27.0 mmol/L 21.0-32.0 [facility] Globulin (S) [Mass/Vol] 4.0 g/dL 2.2-4.2 [facility] Magnesium [Mass/Vol] 2.1 mg/dL 1.6-2.6 [facility] Urea nitrogen/Creatinine [Mass ratio] 19.8 mg/mg 10-20 [facility] Laboratory - Hematology and Cell countsOrdered By: Harry Felder on 06-17-2023 Erythrocyte distribution width (RBC) [Entitic vol] 42.2 fL 35.1-43.9 [facility] Erythrocyte distribution width (RBC) [Ratio] 13.7 % 11.6-14.6 [facility] Immature granulocytes/100 WBC (Bld) 1.800 % 0.0-0.9 [facility] Comment on above: IG% - Immature Granu locytes (promyelocytes, myelocytes and metamyelocytes) > 1% indicates that a LEFT SHIFT is Present. MCH (RBC) [Entitic mass] 28.9 pg 27.0-32.0 [facility] Nucleated RBC/100 WBC (Bld) [Ratio] 0 % 0-5 [facility] MCHC Auto (RBC) [Mass/Vol]Or dered By: Harry Felder on 06-17-2023 MCHC (RBC) [Mass/Vol] 33.6 g/dL 32-36 [facility] No Panel InformationOrdered By: Harry Felder on 06-17-2023 Estimated GFR (MDRD) Amer 93 mL/min >60 [facility] Comment on above: GFR Calc Estimated GFR (MDRD) Non-Af Amer 77 mL/min >60 [facility] Comment on above: Non- GFR Calc Urine Microalbumin/Creatinine Ratio 335.5 mg/g CRE <30 [facility] Platelets bldOrdered By: Sidney Felder on 06-17-2023 Platelets (Bld) [#/Vol] 215 10*3/uL 150-450 [facility] Serum or plasma albumin colton urement (mass/volume)Ordered By: Harry Felder on 06-17-2023 Albumin [Mass/Vol] 3.5 g/dL 3.2-5.0 [facility] Serum or plasma albumin/glob ulin mass ratioOrdered By: Harry Felder on 06-17-2023 Albumin/Globulin [Mass ratio] 0.9 {ratio} 0.9-2.4 [facility] Serum or plasma calcium colton urement (mass/volume)Ordered By: Harry Felder on 06-17-2023 Calcium [Mass/Vol] 9.1 mg/dL 8.5-10.1 [facility] Serum or plasma cholesterol in HDL measurement (mass/volume)Ordered By: Harry Felder on 06-17-2023 Cholesterol in HDL [Mass/Vol] 50 mg/dL >40 [facility] Comment on above: The drugs N-Acetylcy steine and Metamizole may falsely depress this assay. Reference Range HDL <40 mg/dL Low HDL Cholesterol HDL >or= 60 mg/dL High HDL Cholesterol Serum or plasma cholesterol in VLDL measurement (mass/volume)Ordered By: Harry Felder on 06-17-2023 Cholesterol in VLDL [Mass/Vol] 28 mg/dL 5-40 [facility] Serum or plasma creatinine m easurement (mass/volume)Ordered By: Harry Felder on 06-17-2023 Creatinine [Mass/Vol] 1.06 mg/dL 0.70-1.30 [facility] Comment on above: The validity of the calculated GFR & GFRAA in patients over 70 years has not been determined. Clinical correlation is essential. Serum or plasma low density lipoprotein (LDL) cholesterol measurement (mass/volume)Ordered By: Harry Felder on 06-17-2023 Cholesterol in LDL [Mass/Vol] 75 mg/dL 0-130 [facility] Serum or plasma urea nitroge n measurement (mass/volume)Ordered By: Harry Felder on 06-17-2023 Urea nitrogen [Mass/Vol] 21 mg/dL 7-18 [facility] Thin prep Papanicolaou smear with manual screeningOrdered By: Harry Felder on 06-17-2023 Thin prep Papanicolaou smear with manual screening 10 U/L 15-37 [facility] Thin prep Papanicolaou smear with manual screening 6 5-15 [facility] Thin prep Papanicolaou smear with manual screening 156.0 mg/L NO RANGE EST. [facility] Urine creatinine measurement (mass/volume)Ordered By: Harry Felder on 06-17-2023 Creatinine (U) [Mass/Vol] 46.50 mg/dL NO RANGE EST. [facility] Whole blood hemoglobin A1c/t otal hemoglobin ratio (mass fraction)Ordered By: Harry Felder on 06-17-2023 HbA1c (Bld) [Mass fraction] 6.5 % 3.8-5.6 [facility] Comment on above: Normal < 5.7 % Predi abetic 5.7 - 6.4 % Diabetic >or= 6.5 % Please note range changes. Absolute lymphocyte countOrd ered By: Harry Felder on 03-20-2023 Lymphocytes Auto (Unsp spec) [#/Vol] 1.78 10*3/uL 0.83-4.51 [facility] Basophil percentageOrdered B y: aHrry Felder on 03-20-2023 Basophils/100 WBC (Bld) 0.7 % 0-1 [facility] Bilirubin [Mass/Vol] 0.50 mg/dL 0.20-1.00 [facility] Comment on above: For patients on eltr ombopag therapy, use of Dimension [place] TBIL is not recommended. Chloride [Moles/Vol] 105 mmol/L 98-107 [facility] Cholesterol [Mass/Vol] 136 mg/dL <200 [facility] Comment on above: <200 mg/dL Desirable 200-240 mg/dL Borderline >240 mg/dL High Risk Eosinophils/100 WBC (Bld) 3.4 % 0-5 [facility] Glucose [Mass/Vol] 138 mg/dL 74-106 [facility] Comment on above: Fasting Glucose resu lt greater than or equal to 126 mg/dL suggests DIABETES MELLITUS per A.D.A. criteria. Neutrophils (Bld) [#/Vol] 5.9 10*3/uL 2.0-7.7 [facility] Neutrophils/100 WBC (Bld) 64.8 % 47-70 [facility] Potassium [Moles/Vol] 4.2 mmol/L 3.5-5.1 [facility] Protein [Mass/Vol] 7.4 g/dL 6.4-8.2 [facility] Sodium [Moles/Vol] 139 mmol/L 136-145 [facility] Triglyceride [Mass/Vol] 144 mg/dL <199 [facility] Comment on above: The drugs N-Acetylcy steine and Metamizole may falsely depress this assay.Serum Triglycerides Reference Interval Normal <150 mg/dL Borderline high 150 - 199 mg/dL High 200 - 499 mg/dL Very High > or = 500 mg/dL WBC (Bld) [#/Vol] 9.1 10*3/uL 4.4-11.0 [facility] Blood erythrocytes count (nu mber/volume)Ordered By: Harry Felder on 03-20-2023 RBC (Bld) [#/Vol] 6.02 10*6/uL 4.6-6.2 [facility] Blood hemoglobin measurement (mass/volume)Ordered By: Harry Felder on 03-20-2023 Hemoglobin (Bld) [Mass/Vol] 17.3 g/dL 13.0-16.5 [facility] Blood lymphocytes/100 leukoc ytesOrdered By: Harry Felder on 03-20-2023 Lymphocytes/100 WBC (Bld) 19.6 % 19-41 [facility] Blood monocytes/100 leukocyt esOrdered By: Harry Felder on 03-20-2023 Monocytes/100 WBC (Bld) 10.1 % 0-10 [facility] Blood platelet mean volumeOr dered By: Harry Felder on 03-20-2023 Platelet mean volume (Bld) [Entitic vol] 9.4 fL 6.2-12.0 [facility] Determination of erythrocyte mean corpuscular volume (MCV)Ordered By: Harry Felder on 03-20-2023 MCV (RBC) [Entitic vol] 88.4 fL 80-94 [facility] Hematocrit Auto (Bld) [Volum e fraction]Ordered By: Harry Felder on 03-20-2023 Hematocrit (Bld) [Volume fraction] 53.2 % 40-54 [facility] Laboratory - Chemistry and C hemistry - challengeOrdered By: Harry Felder on 03-20-2023 ALP [Catalytic activity/Vol] 64 U/L 45-117 [facility] ALT [Catalytic activity/Vol] 22 U/L 16-61 [facility] CO2 [Moles/Vol] 27.0 mmol/L 21.0-32.0 [facility] Globulin (S) [Mass/Vol] 3.7 g/dL 2.2-4.2 [facility] Magnesium [Mass/Vol] 1.8 mg/dL 1.6-2.6 [facility] Urea nitrogen/Creatinine [Mass ratio] 20.6 mg/mg 10-20 [facility] - Hematology and Cell countsOrdered By: Harry Felder on 03-20-2023 Erythrocyte distribution width (RBC) [Entitic vol] 44.0 fL 35.1-43.9 [facility] Erythrocyte distribution width (RBC) [Ratio] 13.8 % 11.6-14.6 [facility] Immature granulocytes/100 WBC (Bld) 1.400 % 0.0-0.9 [facility] Comment on above: IG% - Immature Granu locytes (promyelocytes, myelocytes and metamyelocytes) > 1% indicates that a LEFT SHIFT is Present. MCH (RBC) [Entitic mass] 28.7 pg 27.0-32.0 [facility] Nucleated RBC/100 WBC (Bld) [Ratio] 0 % 0-5 [facility] MCHC Auto (RBC) [Mass/Vol]Or dered By: Harry Felder on 03-20-2023 MCHC (RBC) [Mass/Vol] 32.5 g/dL 32-36 [facility] No Panel InformationOrdered By: Harry Felder on 03-20-2023 Estimated GFR (MDRD) Amer 92 mL/min >60 [facility] Comment on above: GFR Calc Estimated GFR (MDRD) Non-Af Amer 76 mL/min >60 [facility] Comment on above: Non- GFR Calc Urine Microalbumin/Creatinine Ratio 163.2 mg/g CRE <30 [facility] Platelets bldOrdered By: Sidney Felder on 03-20-2023 Platelets (Bld) [#/Vol] 225 10*3/uL 150-450 [facility] Serum or plasma albumin colton urement (mass/volume)Ordered By: Harry Felder on 03-20-2023 Albumin [Mass/Vol] 3.7 g/dL 3.2-5.0 [facility] Serum or plasma albumin/glob ulin mass ratioOrdered By: Harry Felder on 03-20-2023 Albumin/Globulin [Mass ratio] 1.0 {ratio} 0.9-2.4 [facility] Serum or plasma calcium colton urement (mass/volume)Ordered By: Harry Felder on 03-20-2023 Calcium [Mass/Vol] 9.2 mg/dL 8.5-10.1 [facility] Serum or plasma cholesterol in HDL measurement (mass/volume)Ordered By: Harry Felder on 03-20-2023 Cholesterol in HDL [Mass/Vol] 44 mg/dL >40 [facility] Comment on above: The drugs N-Acetylcy steine and Metamizole may falsely depress this assay. Reference Range HDL <40 mg/dL Low HDL Cholesterol HDL >or= 60 mg/dL High HDL Cholesterol Serum or plasma cholesterol in VLDL measurement (mass/volume)Ordered By: Harry Felder on 03-20-2023 Cholesterol in VLDL [Mass/Vol] 29 mg/dL 5-40 [facility] Serum or plasma creatinine m easurement (mass/volume)Ordered By: Harry Felder on 03-20-2023 Creatinine [Mass/Vol] 1.07 mg/dL 0.70-1.30 [facility] Comment on above: The validity of the calculated GFR & GFRAA in patients over 70 years has not been determined. Clinical correlation is essential. Serum or plasma low density lipoprotein (LDL) cholesterol measurement (mass/volume)Ordered By: Harry Felder on 03-20-2023 Cholesterol in LDL [Mass/Vol] 63 mg/dL 0-130 [facility] Serum or plasma urea nitroge n measurement (mass/volume)Ordered By: Harry Felder on 03-20-2023 Urea nitrogen [Mass/Vol] 22 mg/dL 7-18 [facility] Thin prep Papanicolaou smear with manual screeningOrdered By: Harry Felder on 03-20-2023 Thin prep Papanicolaou smear with manual screening 8 U/L 15-37 [facility] Thin prep Papanicolaou smear with manual screening 7 5-15 [facility] Thin prep Papanicolaou smear with manual screening 134.0 mg/L NO RANGE EST. [facility] Urine creatinine measurement (mass/volume)Ordered By: Harry Felder on 03-20-2023 Creatinine (U) [Mass/Vol] 82.10 mg/dL NO RANGE EST. [facility] Whole blood hemoglobin A1c/t otal hemoglobin ratio (mass fraction)Ordered By: Harry Felder on 03-20-2023 HbA1c (Bld) [Mass fraction] 5.6 % 3.8-5.6 [facility] Comment on above: Normal < 5.7 % Predi abetic 5.7 - 6.4 % Diabetic >or= 6.5 % Please note range changes. Absolute lymphocyte countOrd ered By: Hung Nichole on 01-18-2023 Lymphocytes Auto (Unsp spec) [#/Vol] 1.57 10*3/uL 0.83-4.51 [facility] Basophil percentageOrdered B y: Hung Nichole on 01-18-2023 Basophils/100 WBC (Bld) 0.6 % 0-1 [facility] Bilirubin [Mass/Vol] 0.60 mg/dL 0.20-1.00 [facility] Comment on above: For patients on eltr ombopag therapy, use of Dimension [place] TBIL is not recommended. Chloride [Moles/Vol] 104 mmol/L 98-107 [facility] Eosinophils/100 WBC (Bld) 1.5 % 0-5 [facility] Glucose [Mass/Vol] 135 mg/dL 74-106 [facility] Comment on above: Fasting Glucose resu lt greater than or equal to 126 mg/dL suggests DIABETES MELLITUS per A.D.A. criteria. Neutrophils (Bld) [#/Vol] 5.8 10*3/uL 2.0-7.7 [facility] Neutrophils/100 WBC (Bld) 67.5 % 47-70 [facility] Potassium [Moles/Vol] 4.4 mmol/L 3.5-5.1 [facility] Comment on above: Moderate Hemolysis, Result may be falsely increased. Protein [Mass/Vol] 7.4 g/dL 6.4-8.2 [facility] Sodium [Moles/Vol] 138 mmol/L 136-145 [facility] WBC (Bld) [#/Vol] 8.6 10*3/uL 4.4-11.0 [facility] Blood erythrocytes count (nu mber/volume)Ordered By: Hung Nichole on 01-18-2023 RBC (Bld) [#/Vol] 6.21 10*6/uL 4.6-6.2 [facility] Blood hemoglobin measurement (mass/volume)Ordered By: Hung Nichole on 01-18-2023 Hemoglobin (Bld) [Mass/Vol] 17.8 g/dL 13.0-16.5 [facility] Blood lymphocytes/100 leukoc ytesOrdered By: Hung Nichole on 01-18-2023 Lymphocytes/100 WBC (Bld) 18.2 % 19-41 [facility] Blood monocytes/100 leukocyt esOrdered By: Hung Nichole on 01-18-2023 Monocytes/100 WBC (Bld) 11.2 % 0-10 [facility] Blood platelet mean volumeOr dered By: Hung Nichole on 01-18-2023 Platelet mean volume (Bld) [Entitic vol] 9.1 fL 6.2-12.0 [facility] Determination of erythrocyte mean corpuscular volume (MCV)Ordered By: Hung Nichole on 01-18-2023 MCV (RBC) [Entitic vol] 85.2 fL 80-94 [facility] Hematocrit Auto (Bld) [Volum e fraction]Ordered By: Hung Nichole on 01-18-2023 Hematocrit (Bld) [Volume fraction] 52.9 % 40-54 [facility] Laboratory - Chemistry and C hemistry - challengeOrdered By: Hung Nichole on 01-18-2023 ALP [Catalytic activity/Vol] 71 U/L 45-117 [facility] ALT [Catalytic activity/Vol] 20 U/L 16-61 [facility] CO2 [Moles/Vol] 24.0 mmol/L 21.0-32.0 [facility] Globulin (S) [Mass/Vol] 3.8 g/dL 2.2-4.2 [facility] Urea nitrogen/Creatinine [Mass ratio] 14.5 mg/mg 10-20 [facility] - Hematology and Cell countsOrdered By: Hung Nichole on 01-18-2023 Erythrocyte distribution width (RBC) [Entitic vol] 40.4 fL 35.1-43.9 [facility] Erythrocyte distribution width (RBC) [Ratio] 13.2 % 11.6-14.6 [facility] Immature granulocytes/100 WBC (Bld) 1.000 % 0.0-0.9 [facility] Comment on above: IG% - Immature Granu locytes (promyelocytes, myelocytes and metamyelocytes) > 1% indicates that a LEFT SHIFT is Present. MCH (RBC) [Entitic mass] 28.7 pg 27.0-32.0 [facility] Nucleated RBC/100 WBC (Bld) [Ratio] 0 % 0-5 [facility] MCHC Auto (RBC) [Mass/Vol]Or dered By: Hung Nichole on 01-18-2023 MCHC (RBC) [Mass/Vol] 33.6 g/dL 32-36 [facility] No Panel InformationOrdered By: Hung Nichole on 01-18-2023 Estimated Creatinine Clearance Calc 95.63 ml/min [facility] Estimated GFR (MDRD) Amer 89 mL/min >60 [facility] Comment on above: GFR Calc Estimated GFR (MDRD) Non-Af Amer 74 mL/min >60 [facility] Comment on above: Non- GFR Calc Troponin I High Sensitivity 5 pg/mL 3.0-78.0 [facility] Comment on above: Please Note: New Sharmin t Units and Gender Specific Reference Ranges. For more information see Policy Stat Procedure [place] High Sensitivity Troponin (TNIH) and attachments. Platelets bldOrdered By: Ananya Nichole on 01-18-2023 Platelets (Bld) [#/Vol] 224 10*3/uL 150-450 [facility] Serum or plasma albumin colton urement (mass/volume)Ordered By: Hung Nichole on 01-18-2023 Albumin [Mass/Vol] 3.6 g/dL 3.2-5.0 [facility] Serum or plasma albumin/glob ulin mass ratioOrdered By: Hung Nichole on 01-18-2023 Albumin/Globulin [Mass ratio] 0.9 {ratio} 0.9-2.4 [facility] Serum or plasma calcium colton urement (mass/volume)Ordered By: Hung Nichole on 01-18-2023 Calcium [Mass/Vol] 9.1 mg/dL 8.5-10.1 [facility] Serum or plasma creatinine m easurement (mass/volume)Ordered By: Hung Nichole on 01-18-2023 Creatinine [Mass/Vol] 1.10 mg/dL 0.70-1.30 [facility] Comment on above: The validity of the calculated GFR & GFRAA in patients over 70 years has not been determined. Clinical correlation is essential. Serum or plasma urea nitroge n measurement (mass/volume)Ordered By: Hung Nichole on 01-18-2023 Urea nitrogen [Mass/Vol] 16 mg/dL 7-18 [facility] Thin prep Papanicolaou smear with manual screeningOrdered By: Hung Nichole on 01-18-2023 Thin prep Papanicolaou smear with manual screening 17 U/L 15-37 [facility] Comment on above: Moderate Hemolysis, Result may be falsely increased. Thin prep Papanicolaou smear with manual screening 10 5-15 [facility] Basophil percentageOrdered B y: Harry Felder on 12-29-2022 Chloride [Moles/Vol] 105 mmol/L 98-107 [facility] Glucose [Mass/Vol] 88 mg/dL 74-106 [facility] Potassium [Moles/Vol] 4.2 mmol/L 3.5-5.1 [facility] Sodium [Moles/Vol] 136 mmol/L 136-145 [facility] Laboratory - Chemistry and C hemistry - challengeOrdered By: Harry Felder on 12-29-2022 CO2 [Moles/Vol] 25.0 mmol/L 21.0-32.0 [facility] Urea nitrogen/Creatinine [Mass ratio] 12.0 mg/mg 10-20 [facility] No Panel InformationOrdered By: Harry Felder on 12-29-2022 Estimated GFR (MDRD) Amer 91 mL/min >60 [facility] Comment on above: GFR Calc Estimated GFR (MDRD) Non-Af Amer 75 mL/min >60 [facility] Comment on above: Non- GFR Calc Serum or plasma calcium colton urement (mass/volume)Ordered By: Harry Felder on 12-29-2022 Calcium [Mass/Vol] 9.3 mg/dL 8.5-10.1 [facility] Serum or plasma creatinine m easurement (mass/volume)Ordered By: Harry Felder on 12-29-2022 Creatinine [Mass/Vol] 1.08 mg/dL 0.70-1.30 [facility] Comment on above: The validity of the calculated GFR & GFRAA in patients over 70 years has not been determined. Clinical correlation is essential. Serum or plasma urea nitroge n measurement (mass/volume)Ordered By: Harry Felder on 12-29-2022 Urea nitrogen [Mass/Vol] 13 mg/dL 7-18 [facility] Thin prep Papanicolaou smear with manual screeningOrdered By: Harry Felder on 12-29-2022 Thin prep Papanicolaou smear with manual screening 6 5-15 [facility] Absolute lymphocyte countOrd ered By: Harry Felder on 12-12-2022 Lymphocytes Auto (Unsp spec) [#/Vol] 1.79 10*3/uL 0.83-4.51 [facility] Basophil percentageOrdered B y: Harry Felder on 12-12-2022 Basophils/100 WBC (Bld) 0.7 % 0-1 [facility] Bilirubin [Mass/Vol] 0.60 mg/dL 0.20-1.00 [facility] Comment on above: For patients on eltr ombopag therapy, use of Dimension [place] TBIL is not recommended. Chloride [Moles/Vol] 109 mmol/L 98-107 [facility] Cholesterol [Mass/Vol] 111 mg/dL <200 [facility] Comment on above: <200 mg/dL Desirable 200-240 mg/dL Borderline >240 mg/dL High Risk Eosinophils/100 WBC (Bld) 3.5 % 0-5 [facility] Glucose [Mass/Vol] 104 mg/dL 74-106 [facility] Comment on above: Fasting Glucose resu lt from 100 to 125 mg/dL suggests IMPAIRED HOMEOSTASIS per A.D.A. criteria. Neutrophils (Bld) [#/Vol] 4.0 10*3/uL 2.0-7.7 [facility] Neutrophils/100 WBC (Bld) 58.4 % 47-70 [facility] Potassium [Moles/Vol] 4.1 mmol/L 3.5-5.1 [facility] Comment on above: Slight Hemolysis, Re sult may be falsely increased. Protein [Mass/Vol] 7.9 g/dL 6.4-8.2 [facility] Sodium [Moles/Vol] 138 mmol/L 136-145 [facility] Triglyceride [Mass/Vol] 106 mg/dL <199 [facility] Comment on above: The drugs N-Acetylcy steine and Metamizole may falsely depress this assay.Serum Triglycerides Reference Interval Normal <150 mg/dL Borderline high 150 - 199 mg/dL High 200 - 499 mg/dL Very High > or = 500 mg/dL WBC (Bld) [#/Vol] 6.9 10*3/uL 4.4-11.0 [facility] Blood erythrocytes count (nu mber/volume)Ordered By: Harry Felder on 12-12-2022 RBC (Bld) [#/Vol] 6.18 10*6/uL 4.6-6.2 [facility] Blood hemoglobin measurement (mass/volume)Ordered By: Harry Felder on 12-12-2022 Hemoglobin (Bld) [Mass/Vol] 18.2 g/dL 13.0-16.5 [facility] Blood lymphocytes/100 leukoc ytesOrdered By: Harry Felder on 12-12-2022 Lymphocytes/100 WBC (Bld) 26.1 % 19-41 [facility] Blood monocytes/100 leukocyt esOrdered By: Harry Felder on 12-12-2022 Monocytes/100 WBC (Bld) 10.9 % 0-10 [facility] Blood platelet mean volumeOr dered By: Harry Felder on 12-12-2022 Platelet mean volume (Bld) [Entitic vol] 9.9 fL 6.2-12.0 [facility] Determination of erythrocyte mean corpuscular volume (MCV)Ordered By: Harry Felder on 12-12-2022 MCV (RBC) [Entitic vol] 86.2 fL 80-94 [facility] Hematocrit Auto (Bld) [Volum e fraction]Ordered By: Harry Felder on 12-12-2022 Hematocrit (Bld) [Volume fraction] 53.3 % 40-54 [facility] Iron measurement (mass/mass) Ordered By: Harry Felder on 12-12-2022 Iron (Unsp spec) [Mass/Mass] 67 ug/dL 65-175 [facility] Comment on above: Slight Hemolysis, Re sult may be falsely increased. Laboratory - Chemistry and C hemistry - challengeOrdered By: Harry Felder on 12-12-2022 ALP [Catalytic activity/Vol] 68 U/L 45-117 [facility] ALT [Catalytic activity/Vol] 18 U/L 16-61 [facility] CO2 [Moles/Vol] 22.0 mmol/L 21.0-32.0 [facility] Globulin (S) [Mass/Vol] 4.2 g/dL 2.2-4.2 [facility] Magnesium [Mass/Vol] 2.3 mg/dL 1.6-2.6 [facility] Comment on above: Slight Hemolysis, Re sult may be falsely increased. Transferrin [Mass/Vol] 253 mg/dL 177-329 [facility] Comment on above: Performed at: [address] [id number] Director: Joshua Galvan PhD, Phone: [phone] Urea nitrogen/Creatinine [Mass ratio] 14.3 mg/mg 10-20 [facility] - Hematology and Cell countsOrdered By: Harry Felder on 12-12-2022 Erythrocyte distribution width (RBC) [Entitic vol] 40.9 fL 35.1-43.9 [facility] Erythrocyte distribution width (RBC) [Ratio] 13.2 % 11.6-14.6 [facility] Immature granulocytes/100 WBC (Bld) 0.400 % 0.0-0.9 [facility] Comment on above: IG% - Immature Granu locytes (promyelocytes, myelocytes and metamyelocytes) > 1% indicates that a LEFT SHIFT is Present. MCH (RBC) [Entitic mass] 29.4 pg 27.0-32.0 [facility] Nucleated RBC/100 WBC (Bld) [Ratio] 0 % 0-5 [facility] MCHC Auto (RBC) [Mass/Vol]Or dered By: Harry Felder on 12-12-2022 MCHC (RBC) [Mass/Vol] 34.1 g/dL 32-36 [facility] No Panel InformationOrdered By: Harry Felder on 12-12-2022 Estimated GFR (MDRD) Amer 102 mL/min >60 [facility] Comment on above: GFR Calc Estimated GFR (MDRD) Non-Af Amer 84 mL/min >60 [facility] Comment on above: Non- GFR Calc Total Iron Binding Capacity 443 ug/dL 250-450 [facility] Urine Microalbumin/Creatinine Ratio 247.2 mg/g CRE <30 [facility] Platelets bldOrdered By: Sidney Felder on 12-12-2022 Platelets (Bld) [#/Vol] 229 10*3/uL 150-450 [facility] Review by pathologistOrdered By: Harry Felder on 12-12-2022 Pathologist review Ryan (Unsp spec) [Interp] Reviewed [facility] Comment on above: Previous reported re sult: Sarai mack Edited by: EMY on 12/14/22:1015PolycythemiaClinical correlation necessary.Guille Castillo M.D. 12/14/22 AMENDED REPORT 12/14/22 1015 PATH REV previously reported as: Sarai mack Serum or plasma albumin colton urement (mass/volume)Ordered By: Harry Felder on 12-12-2022 Albumin [Mass/Vol] 3.7 g/dL 3.2-5.0 [facility] Serum or plasma albumin/glob ulin mass ratioOrdered By: Harry Felder on 12-12-2022 Albumin/Globulin [Mass ratio] 0.9 {ratio} 0.9-2.4 [facility] Serum or plasma calcium colton urement (mass/volume)Ordered By: Harry Felder on 12-12-2022 Calcium [Mass/Vol] 9.2 mg/dL 8.5-10.1 [facility] Serum or plasma cholesterol in HDL measurement (mass/volume)Ordered By: Harry Felder on 12-12-2022 Cholesterol in HDL [Mass/Vol] 39 mg/dL >40 [facility] Comment on above: The drugs N-Acetylcy steine and Metamizole may falsely depress this assay. Reference Range HDL <40 mg/dL Low HDL Cholesterol HDL >or= 60 mg/dL High HDL Cholesterol Serum or plasma cholesterol in VLDL measurement (mass/volume)Ordered By: Harry Felder on 12-12-2022 Cholesterol in VLDL [Mass/Vol] 21 mg/dL 5-40 [facility] Serum or plasma creatinine m easurement (mass/volume)Ordered By: Harry Felder on 12-12-2022 Creatinine [Mass/Vol] 0.98 mg/dL 0.70-1.30 [facility] Comment on above: The validity of the calculated GFR & GFRAA in patients over 70 years has not been determined. Clinical correlation is essential. Serum or plasma ferritin gino surement (mass/volume)Ordered By: Harry Felder on 12-12-2022 Ferritin [Mass/Vol] 214 ng/mL 26-388 [facility] Serum or plasma low density lipoprotein (LDL) cholesterol measurement (mass/volume)Ordered By: Harry Felder on 12-12-2022 Cholesterol in LDL [Mass/Vol] 51 mg/dL 0-130 [facility] Serum or plasma urea nitroge n measurement (mass/volume)Ordered By: Harry Felder on 12-12-2022 Urea nitrogen [Mass/Vol] 14 mg/dL 7-18 [facility] Serum or plasma uric acid me asurement (mass/volume)Ordered By: Harry Felder on 07-03-2023 Urate [Mass/Vol] 5.7 mg/dL 3.5-7.2 [facility] Comment on above: The drugs N-Acetylcy steine and Metamizole may falsely depress this assay. Thin prep Papanicolaou smear with manual screeningOrdered By: Harry Felder on 12-12-2022 Thin prep Papanicolaou smear with manual screening 11 U/L 15-37 [facility] Comment on above: Slight Hemolysis, Re sult may be falsely increased. Thin prep Papanicolaou smear with manual screening 7 5-15 [facility] Thin prep Papanicolaou smear with manual screening 57.6 mg/L NO RANGE EST. [facility] Urine creatinine measurement (mass/volume)Ordered By: Harry Felder on 12-12-2022 Creatinine (U) [Mass/Vol] 23.30 mg/dL NO RANGE EST. [facility] Whole blood hemoglobin A1c/t otal hemoglobin ratio (mass fraction)Ordered By: Harry Felder on 12-12-2022 HbA1c (Bld) [Mass fraction] 5.5 % 3.8-5.6 [facility] Comment on above: Normal < 5.7 % Predi abetic 5.7 - 6.4 % Diabetic >or= 6.5 % Please note range changes. Absolute lymphocyte countOrd ered By: Dr. Felder on 09-14-2022 Lymphocytes Auto (Unsp spec) [#/Vol] 1.47 10*3/uL 0.83-4.51 [facility] Basophil percentageOrdered B y: Dr. Felder on 09-14-2022 Basophils/100 WBC (Bld) 0.9 % 0-1 [facility] Bilirubin [Mass/Vol] 1.10 mg/dL 0.20-1.00 [facility] Comment on above: For patients on eltr ombopag therapy, use of Dimension [place] TBIL is not recommended. Chloride [Moles/Vol] 103 mmol/L 98-107 [facility] Cholesterol [Mass/Vol] 96 mg/dL <200 [facility] Comment on above: <200 mg/dL Desirable 200-240 mg/dL Borderline >240 mg/dL High Risk Eosinophils/100 WBC (Bld) 3.0 % 0-5 [facility] Glucose [Mass/Vol] 226 mg/dL 74-106 [facility] Comment on above: Glucose result great er than or equal to 200 mg/dLsuggests DIABETES MELLITUS per A.D.A. criteria. Neutrophils (Bld) [#/Vol] 4.9 10*3/uL 2.0-7.7 [facility] Neutrophils/100 WBC (Bld) 61.6 % 47-70 [facility] Potassium [Moles/Vol] 4.0 mmol/L 3.5-5.1 [facility] Protein [Mass/Vol] 7.3 g/dL 6.4-8.2 [facility] Sodium [Moles/Vol] 135 mmol/L 136-145 [facility] Triglyceride [Mass/Vol] 182 mg/dL <199 [facility] Comment on above: The drugs N-Acetylcy steine and Metamizole may falsely depress this assay.Serum Triglycerides Reference Interval Normal <150 mg/dL Borderline high 150 - 199 mg/dL High 200 - 499 mg/dL Very High > or = 500 mg/dL WBC (Bld) [#/Vol] 7.9 10*3/uL 4.4-11.0 [facility] Blood erythrocytes count (nu mber/volume)Ordered By: Dr. Felder on 09-14-2022 RBC (Bld) [#/Vol] 5.91 10*6/uL 4.6-6.2 [facility] Blood hemoglobin measurement (mass/volume)Ordered By: Dr. Felder on 09-14-2022 Hemoglobin (Bld) [Mass/Vol] 17.4 g/dL 13.0-16.5 [facility] Blood lymphocytes/100 leukoc ytesOrdered By: Dr. Felder on 09-14-2022 Lymphocytes/100 WBC (Bld) 18.6 % 19-41 [facility] Blood monocytes/100 leukocyt esOrdered By: Dr. Felder on 09-14-2022 Monocytes/100 WBC (Bld) 14.1 % 0-10 [facility] Blood platelet mean volumeOr dered By: Dr. Felder on 09-14-2022 Platelet mean volume (Bld) [Entitic vol] 9.9 fL 6.2-12.0 [facility] Determination of erythrocyte mean corpuscular volume (MCV)Ordered By: Dr. Felder on 09-14-2022 MCV (RBC) [Entitic vol] 88.5 fL 80-94 [facility] Hematocrit Auto (Bld) [Volum e fraction]Ordered By: Dr. Felder on 09-14-2022 Hematocrit (Bld) [Volume fraction] 52.3 % 40-54 [facility] Laboratory - Chemistry and C hemistry - challengeOrdered By: Dr. Felder on 09-14-2022 ALP [Catalytic activity/Vol] 53 U/L 45-117 [facility] ALT [Catalytic activity/Vol] 29 U/L 16-61 [facility] CO2 [Moles/Vol] 23.0 mmol/L 21.0-32.0 [facility] Globulin (S) [Mass/Vol] 3.7 g/dL 2.2-4.2 [facility] Magnesium [Mass/Vol] 1.8 mg/dL 1.6-2.6 [facility] Urea nitrogen/Creatinine [Mass ratio] 13.4 mg/mg 10-20 [facility] - Hematology and Cell countsOrdered By: Dr. Felder on 09-14-2022 Erythrocyte distribution width (RBC) [Entitic vol] 44.2 fL 35.1-43.9 [facility] Erythrocyte distribution width (RBC) [Ratio] 13.9 % 11.6-14.6 [facility] Immature granulocytes/100 WBC (Bld) 1.800 % 0.0-0.9 [facility] Comment on above: IG% - Immature Granu locytes (promyelocytes, myelocytes and metamyelocytes) > 1% indicates that a LEFT SHIFT is Present. MCH (RBC) [Entitic mass] 29.4 pg 27.0-32.0 [facility] Nucleated RBC/100 WBC (Bld) [Ratio] 0 % 0-5 [facility] MCHC Auto (RBC) [Mass/Vol]Or dered By: Dr. Felder on 09-14-2022 MCHC (RBC) [Mass/Vol] 33.3 g/dL 32-36 [facility] No Panel InformationOrdered By: Dr. Felder on 09-14-2022 Estimated GFR (MDRD) Amer 82 mL/min >60 [facility] Comment on above: GFR Calc Estimated GFR (MDRD) Non-Af Amer 68 mL/min >60 [facility] Comment on above: Non- GFR Calc Platelets bldOrdered By: Dr. Felder on 09-14-2022 Platelets (Bld) [#/Vol] 236 10*3/uL 150-450 [facility] Serum or plasma albumin colton urement (mass/volume)Ordered By: Dr. Felder on 09-14-2022 Albumin [Mass/Vol] 3.6 g/dL 3.2-5.0 [facility] Serum or plasma albumin/glob ulin mass ratioOrdered By: Dr. Felder on 09-14-2022 Albumin/Globulin [Mass ratio] 1.0 {ratio} 0.9-2.4 [facility] Serum or plasma calcium colton urement (mass/volume)Ordered By: Dr. Felder on 09-14-2022 Calcium [Mass/Vol] 9.4 mg/dL 8.5-10.1 [facility] Serum or plasma cholesterol in HDL measurement (mass/volume)Ordered By: Dr. Felder on 09-14-2022 Cholesterol in HDL [Mass/Vol] 34 mg/dL >40 [facility] Comment on above: The drugs N-Acetylcy steine and Metamizole may falsely depress this assay. Reference Range HDL <40 mg/dL Low HDL Cholesterol HDL >or= 60 mg/dL High HDL Cholesterol Serum or plasma cholesterol in VLDL measurement (mass/volume)Ordered By: Dr. Felder on 09-14-2022 Cholesterol in VLDL [Mass/Vol] 36 mg/dL 5-40 [facility] Serum or plasma creatinine m easurement (mass/volume)Ordered By: Dr. Felder on 09-14-2022 Creatinine [Mass/Vol] 1.19 mg/dL 0.70-1.30 [facility] Comment on above: The validity of the calculated GFR & GFRAA in patients over 70 years has not been determined. Clinical correlation is essential. Serum or plasma low density lipoprotein (LDL) cholesterol measurement (mass/volume)Ordered By: Dr. Felder on 09-14-2022 Cholesterol in LDL [Mass/Vol] 26 mg/dL 0-130 [facility] Serum or plasma urea nitroge n measurement (mass/volume)Ordered By: Dr. Felder on 09-14-2022 Urea nitrogen [Mass/Vol] 16 mg/dL 7-18 [facility] Thin prep Papanicolaou smear with manual screeningOrdered By: Dr. Felder on 09-14-2022 Thin prep Papanicolaou smear with manual screening 19 U/L 15-37 [facility] Thin prep Papanicolaou smear with manual screening 9 5-15 [facility] Whole blood hemoglobin A1c/t otal hemoglobin ratio (mass fraction)Ordered By: Dr. Felder on 09-14-2022 HbA1c (Bld) [Mass fraction] 7.7 % 3.8-5.6 [facility] Comment on above: Normal < 5.7 % Predi abetic 5.7 - 6.4 % Diabetic >or= 6.5 % Please note range changes. CHEM 7 (LYTES,BUN,CREA,GLUC) on 09-10-2022 Anion gap [Moles/Vol] 13 mmol/L Normal 7-17 [facility] Comment on above: Performed By: #### Odilon HMNai, MGO #### [facility] (DEFAULT) [address] [address] Chloride [Moles/Vol] 103 mmol/L Normal 98-108 [facility] Comment on above: Performed By: #### Odilon HM7, MGO #### [facility] (DEFAULT) [address] [address] CO2 [Moles/Vol] 22 mmol/L Normal 21-31 [facility] Comment on above: Performed By: #### Odilon HM7, MGO #### U [facility] (DEFAULT) [address] [address] Creatinine [Mass/Vol] 0.94 mg/dL Normal 0.70-1.30 [facility] Comment on above: Performed By: #### Odilon HM7, MGO #### [facility] (DEFAULT) [address] [place] [phone] eGFR, CKD-EPI, Male > Normal >=60 [facility] Comment on above: Result Comment: Repo rted eGFR is based on the CKD-EPI 2020 equation using creatinine, age, and sex. Performed By: #### C HM7, MGO #### U [facility] (DEFAULT) [address] [place] [phone] Glucose [Mass/Vol] 155 mg/dL High 70-99 [facility] Comment on above: Performed By: #### C HM7, MGO #### U [facility] (DEFAULT) [address] [place] [address] Osmolality [Osmolality] 289 mosm/kg Normal 278-305 [facility] Comment on above: Performed By: #### C HM7, MGO #### U [facility] (DEFAULT) [address] [place] [address] Potassium [Moles/Vol] 3.9 mmol/L Normal 3.5-5.0 [facility] Comment on above: Performed By: #### C HM7, MGO #### U [facility] (DEFAULT) [address] [place] [phone] Sodium [Moles/Vol] 134 mmol/L Low 135-145 [facility] Comment on above: Performed By: #### C HM7, MGO #### U [facility] (DEFAULT) [address] [place] [phone] Urea nitrogen [Mass/Vol] 23 mg/dL Normal 7-25 [facility] Comment on above: Performed By: #### C HM7, MGO #### U [facility] (DEFAULT) [address] [place] [phone] Urea nitrogen/Creatinine [Mass ratio] 24 mg/mg Normal [facility] Comment on above: Performed By: #### C HM7, MGO #### U [facility] (DEFAULT) [address] [place] [phone] CHEM 7 (LYTES,BUN,CREA,GLUC) Ordered By: Julieta Lyons on 09-10-2022 Anion gap [Moles/Vol] 13 mmol/L 7 - 17 mmol/L [facility] Chloride [Moles/Vol] 103 mmol/L 98 - 10 8 mmol/L [facility] CO2 [Moles/Vol] 22 mmol/L 21 - 31 mmol/L [facility] Creatinine [Mass/Vol] 0.94 mg/dL 0.70 - 1.30 mg/dL [facility] GFR/1.73 sq M.predicted CKD-EPI (S/P/Bld) [Vol rate/Area] - PINF [facility] Comment on above: Reported eGFR is bas ed on the CKD-EPI 2020 equation using creatinine, age, and sex. Glucose [Mass/Vol] 155 mg/dL High 70 - 99 mg/dL [facility] Interpretation and review of laboratory results Abnormal [facility] Osmolality Calc [Osmolality] 289 [facility] Potassium [Moles/Vol] 3.9 mmol/L 3.5 - 5.0 mmol/L [facility] Sodium [Moles/Vol] 134 mmol/L Low 135 - 145 mmol/L [facility] Urea nitrogen [Mass/Vol] 23 mg/dL 7 - 25 mg/dL [facility] Urea nitrogen/Creatinine [Mass ratio] 24 mg/mg [facility] CONTINUOUS CARDIAC MONITORIN G STRIPon 09-10-2022 [facility] GLUCOSE POCon 09-10-2022 Glucose [Mass/Vol] 159 mg/dL High 70 - 99 mg/dL [facility] Interpretation and review of laboratory results Abnormal [facility] POC Sample Type CAPBL [facility] Test performed at address of the patient encounter. [facility] MAGNESIUMon 09-10-2022 Magnesium [Mass/Vol] 1.6 mg/dL Normal 1.6-2.6 [facility] Comment on above: Performed By: #### C HM7, MGO #### [facility] (DEFAULT) [address] [place] [address] 16532 Interpretation and review of laboratory results Normal [facility] Magnesium [Mass/Vol] 1.6 mg/dL 1.6 - 2 .6 mg/dL [facility] CHEM 7 (LYTES,BUN,CREA,GLUC) on 09-09-2022 Anion gap [Moles/Vol] 15 mmol/L Normal 7-17 [facility] Comment on above: Performed By: #### C HM7, MGO #### [facility] (DEFAULT) [address] [place] [address] 60328 Chloride [Moles/Vol] 105 mmol/L Normal 98-108 [facility] Comment on above: Performed By: #### C HM7, MGO #### [facility] (DEFAULT) [address] [place] [address] 93070 CO2 [Moles/Vol] 22 mmol/L Normal 21-31 [facility] Comment on above: Performed By: #### C HM7, MGO #### [facility] (DEFAULT) [address] [place] [address] 15489 Creatinine [Mass/Vol] 0.97 mg/dL Normal 0.70-1.30 [facility] Comment on above: Performed By: #### C HM7, MGO #### [facility] (DEFAULT) [address] [place] [address] 64674 eGFR, CKD-EPI, Male > Normal >=60 [facility] Comment on above: Result Comment: Repo rted eGFR is based on the CKD-EPI 2020 equation using creatinine, age, and sex. Performed By: #### C HM7, MGO #### [facility] (DEFAULT) [address] [place] [address] 09733 Glucose [Mass/Vol] 184 mg/dL High 70-99 [facility] Comment on above: Performed By: #### C HM7, MGO #### [facility] (DEFAULT) [address] [place] [address] 68856 Osmolality [Osmolality] 298 mosm/kg Normal 278-305 [facility] Comment on above: Performed By: #### Odilon HM7, MGO #### [facility] (DEFAULT) [address] [place] [address] 23901 Potassium [Moles/Vol] 4.9 mmol/L Normal 3.5-5.0 [facility] Comment on above: Result Comment: Mode rate Hemolysis Performed By: #### C HM7, MGO #### [facility] (DEFAULT) [address] [place] [address] 41451 Sodium [Moles/Vol] 137 mmol/L Normal 135-145 [facility] Comment on above: Performed By: #### Odilon HM7, MGO #### [facility] (DEFAULT) [address] [place] [address] 68414 Urea nitrogen [Mass/Vol] 24 mg/dL Normal 7-25 [facility] Comment on above: Performed By: #### Odilon HM7, MGO #### [facility] (DEFAULT) [address] [place] [address] 25190 Urea nitrogen/Creatinine [Mass ratio] 25 mg/mg Normal [facility] Comment on above: Performed By: #### Odilon HM7, MGO #### [facility] (DEFAULT) [address] [place] [address] 59395 CHEM 7 (LYTES,BUN,CREA,GLUC) Ordered By: Luisito Lux on 09-09-2022 Anion gap [Moles/Vol] 15 mmol/L 7 - 17 mmol/L [facility] Chloride [Moles/Vol] 105 mmol/L 98 - 10 8 mmol/L [facility] CO2 [Moles/Vol] 22 mmol/L 21 - 31 mmol/L [facility] Creatinine [Mass/Vol] 0.97 mg/dL 0.70 - 1.30 mg/dL [facility] GFR/1.73 sq M.predicted CKD-EPI (S/P/Bld) [Vol rate/Area] - PINF [facility] Comment on above: Reported eGFR is bas ed on the CKD-EPI 2020 equation using creatinine, age, and sex. Glucose [Mass/Vol] 184 mg/dL High 70 - 99 mg/dL [facility] Interpretation and review of laboratory results Abnormal [facility] Osmolality Calc [Osmolality] 298 [facility] Potassium [Moles/Vol] 4.9 mmol/L 3.5 - 5.0 mmol/L [facility] Comment on above: Moderate Hemolysis Sodium [Moles/Vol] 137 mmol/L 135 - 145 mmol/L [facility] Urea nitrogen [Mass/Vol] 24 mg/dL 7 - 25 mg/dL [facility] Urea nitrogen/Creatinine [Mass ratio] 25 mg/mg [facility] CONTINUOUS CARDIAC MONITORIN G STRIPon 09-09-2022 [facility] GLUCOSE POCon 09-09-2022 Glucose [Mass/Vol] 177 mg/dL High 70 - 99 mg/dL [facility] Interpretation and review of laboratory results Abnormal [facility] POC Sample Type CAPBL [facility] Test performed at address of the patient encounter. [facility] Glucose [Mass/Vol] 165 mg/dL High 70 - 99 mg/dL [facility] Interpretation and review of laboratory results Abnormal [facility] POC Sample Type CAPBL [facility] Test performed at address of the patient encounter. [facility] Glucose [Mass/Vol] 153 mg/dL High 70 - 99 mg/dL [facility] Interpretation and review of laboratory results Abnormal [facility] POC Sample Type CAPBL [facility] Test performed at address of the patient encounter. [facility] Glucose [Mass/Vol] 154 mg/dL High 70 - 99 mg/dL [facility] Interpretation and review of laboratory results Abnormal [facility] POC Sample Type CAPBL [facility] Test performed at address of the patient encounter. [facility] MAGNESIUMon 09-09-2022 Magnesium [Mass/Vol] 1.9 mg/dL Normal 1.6-2.6 [facility] Comment on above: Result Comment: Mode rate Hemolysis Performed By: #### C HM7, MGO #### [facility] (DEFAULT) [address] [place] [address] 52266 Interpretation and review of laboratory results Normal [facility] Magnesium [Mass/Vol] 1.9 mg/dL 1.6 - 2 .6 mg/dL [facility] Comment on above: Moderate Hemolysis [facility] CBC,PLATELETSon 09-08-2022 Hematocrit (Bld) [Volume fraction] 49.4 % High 39.6-48.8 [facility] Comment on above: Performed By: #### H EMOGC #### [facility] (DEFAULT) [address] [place] [address] 37483 Hemoglobin (Bld) [Mass/Vol] 16.3 g/dL Normal 13.4-16.8 [facility] Comment on above: Performed By: #### H EMOGC #### [facility] (DEFAULT) [address] [place] [address] 70483 MCV (RBC) [Entitic vol] 86.4 fL Normal 79.0-94.5 [facility] Comment on above: Performed By: #### H EMOGC #### [facility] (DEFAULT) [address] [place] [address] 98854 Mean Cell Hgb 28.5 pg Normal 26.1-33.3 [facility] Comment on above: Performed By: #### H EMOGC #### [facility] (DEFAULT) [address] [place] [address] 12501 Mean Cell Hgb Conc 33.0 g/dL Normal 31.9-36.5 [facility] Comment on above: Performed By: #### H EMOGC #### [facility] (DEFAULT) [address] [place] [address] 87696 Platelet mean volume (Bld) [Entitic vol] 9.5 fL Normal 8.7-12.3 [facility] Comment on above: Performed By: #### H EMOGC #### [facility] (DEFAULT) [address] [place] [address] 03509 Platelets (Bld) [#/Vol] 208 10*3/uL Normal 146-337 [facility] Comment on above: Performed By: #### H EMO #### [facility] (DEFAULT) [address] [place] [address] 06573 RBC (Bld) [#/Vol] 5.72 10*6/uL Normal 4.38-5.83 [facility] Comment on above: Performed By: #### H EMO #### [facility] (DEFAULT) [address] [place] [address] 00142 RBC Distribution 13.8 % Normal 10.9-14.3 [facility] Comment on above: Performed By: #### H EMO #### [facility] (DEFAULT) [address] [place] [address] 13466 WBC (Bld) [#/Vol] 10.25 10*3/uL High 3.73-10.10 [facility] Comment on above: Performed By: #### H EMOGC #### [facility] (DEFAULT) [address] [place] [address] 58584 Erythrocyte distribution width (RBC) [Ratio] 13.8 % 10.9 - 14.3 % [facility] Hematocrit (Bld) [Volume fraction] 49.4 % High 39.6 - 48.8 % [facility] Hemoglobin (Bld) [Mass/Vol] 16.3 g/dL 13.4 - 16.8 g/dL [facility] Interpretation and review of laboratory results Abnormal [facility] MCH (RBC) [Entitic mass] 28.5 pg 26. 1 - 33.3 pg [facility] MCHC (RBC) [Mass/Vol] 33.0 g/dL 31.9 - 36.5 g/dL [facility] MCV (RBC) [Entitic vol] 86.4 fL 79.0 - 94.5 fL [facility] Platelet mean volume (Bld) [Entitic vol] 9.5 fL 8.7 - 12.3 fL [facility] Platelets (Bld) [#/Vol] 208 10*3/uL 146 - 337 K/uL [facility] RBC (Bld) [#/Vol] 5.72 10*6/uL [facility] WBC (Bld) [#/Vol] 10.25 10*3/uL High 3.73 - 10.10 K/uL [facility] CHEM 6 (LYTES, BUN CREA)on 0 09-08-2022 Anion gap [Moles/Vol] 17 mmol/L Normal 7-17 [facility] Comment on above: Performed By: #### Milagro DOYLE CHM6 #### [facility] (DEFAULT) [address] [place] [address] 65276 Chloride [Moles/Vol] 107 mmol/L Normal 98-108 [facility] Comment on above: Performed By: #### Milagro DOYLE CHM6 #### [facility] (DEFAULT) [address] [place] [address] 52457 CO2 [Moles/Vol] 18 mmol/L Low 21-31 [facility] Comment on above: Performed By: #### Milagro DOYLE CHM6 #### [facility] (DEFAULT) [address] [place] [address] 22805 Creatinine [Mass/Vol] 0.93 mg/dL Normal 0.70-1.30 [facility] Comment on above: Performed By: #### Milagro DOYLE CHM6 #### [facility] (DEFAULT) [address] [place] [address] 22690 eGFR, CKD-EPI, Male > Normal >=60 [facility] Comment on above: Result Comment: Repo rted eGFR is based on the CKD-EPI 2021 equation using creatinine, age, and sex. Performed By: #### Milagro DOYLE CHM6 #### [facility] (DEFAULT) [address] [place] [address] Potassium [Moles/Vol] 3.8 mmol/L Normal 3.5-5.0 [facility] Comment on above: Performed By: #### Milagro DOYLE CHM6 #### [facility] (DEFAULT) [address] [place] [address] Sodium [Moles/Vol] 138 mmol/L Normal 135-145 [facility] Comment on above: Performed By: #### Milagro DOYLE CHM6 #### [facility] (DEFAULT) [address] [place] [address] 62786 Urea nitrogen [Mass/Vol] 24 mg/dL Normal 7-25 [facility] Comment on above: Performed By: #### Milagro DOYLE CHM6 #### [facility] (DEFAULT) [address] [place] [address] 96811 Urea nitrogen/Creatinine [Mass ratio] 26 mg/mg Normal [facility] Comment on above: Performed By: #### Milagro DOYLE CHM6 #### [facility] (DEFAULT) [address] [place] [address] 36871 Anion gap [Moles/Vol] 17 mmol/L 7 - 17 mmol/L [facility] Chloride [Moles/Vol] 107 mmol/L 98 - 10 8 mmol/L [facility] CO2 [Moles/Vol] 18 mmol/L Low 21 - 31 mmol/L [facility] Creatinine [Mass/Vol] 0.93 mg/dL 0.70 - 1.30 mg/dL [facility] GFR/1.73 sq M.predicted CKD-EPI (S/P/Bld) [Vol rate/Area] - PINF [facility] Comment on above: Reported eGFR is bas ed on the CKD-EPI 2021 equation using creatinine, age, and sex. Interpretation and review of laboratory results Abnormal [facility] Potassium [Moles/Vol] 3.8 mmol/L 3.5 - 5.0 mmol/L [facility] Sodium [Moles/Vol] 138 mmol/L 135 - 145 mmol/L [facility] Urea nitrogen [Mass/Vol] 24 mg/dL 7 - 25 mg/dL [facility] Urea nitrogen/Creatinine [Mass ratio] 26 mg/mg [facility] CONTINUOUS CARDIAC MONITORIN G STRIPon 09-08-2022 [facility] CONTINUOUS CARDIAC MONITORIN G STRIPOrdered By: Unassigned Pacs on 09-08-2022 [facility] Work Phone: EP PROCEDURE - EPS/ABLATION/ DEVICEon 09-08-2022 EP PROCEDURE - EPS/ABLATION/DEVICE Sohail Thompson is a 56 y.o. male who has a past medical history of persistent AF, ATrial flutter, DM type II, HTN, polycythemia, TONYA, morbid obesity possible thromboembolic event/retinal artery occlusion. who presented to the [facility] EP lab for atrial fibrillation ablation. Conclusions Femoral venous access x 3. Long 9F, Agilis, and Preface sheaths were advanced from the right femoral vein. Systemic anticoagulation with heparin was given to achieve an ACT of 350 seconds. ICE catheter was advanced to help guide interatrial transeptal puncture. A CS catheter was inserted. Patient noted to be in atrial flutter, confirmed to be CTI dependent flutter CL 290ms. RF applications to the CTI region terminated the flutter, additional RF lesions applied to achieve bidirectional block. CT imaging of the LA/PVs and 3D electroanatomic/voltage mapping using a Penta-ray catheter (Carto) was used to create an anatomical shell of the LA/PVs. STSF 4mm tip irrigated catheter was used for pulmonary vein isolation (WACA). Confirmed entry and exit block of all 4 pulmonary veins. Protamine sulfate was used to reverse systemic anticoagulation. There was no pericardial effusion pre/post RFA as confirmed by ICE. 3-way stopcock access site closure was applied to both femoral access sites. EP study post RFA 1. Baseline rhythm is sinus rhythm 2. Normal sinus node function ([id number]). 3. Normal AV node function, normal infranodal conduction (HV=40ms). 4. No evidence of accessory pathway. 5. No evidence of dual AV node physiology. 6. VA dissociation. Recommendations 1. Bedrest for 3 hours and stopcock closure device care as directed. 2. Monitor the patient overnight. 3. Resume systemic anticoagulation with apixaban tonight. 4. PPI x 30 days. 5. 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 6. The patient can continue ongoing follow-up with Dr. Moya Table formatting from the original result was not included. Sohail Thompson EP Procedure - EPS/Ablation/Device Ordering Physician: KENYON MOYA Order #: [id number] Study Date: 09/07/2022 Patient Information Name MRN Description Sohail Thompson [id number] 56 y.o. male Physicians Panel Physicians Referring Physician Case Authorizing Physician Kenyon Moya MD (Primary) MD Kenyon Rosario MD Grant M Wallace, MD (Fellow) Procedures AFIB Ablation Atrial Flutter Ablation Pre Procedure Diagnosis Palpitations [R00.2]Paroxysmal atrial fibrillation [I48.0] Post Procedure Diagnosis Palpitations [R00.2]Paroxysmal atrial fibrillation [I48.0] Indications Palpitations [R00.2 (ICD-10-CM)] Paroxysmal atrial fibrillation [I48.0 (ICD-10-CM)] Conclusion Sohail Thompson is a 56 y.o. male who has a past medical history of persistent AF, ATrial flutter, DM type II, HTN, polycythemia, TONYA, morbid obesity possible thromboembolic event/retinal artery occlusion. who presented to the [facility] EP lab for atrial fibrillation ablation. Conclusions Femoral venous access x 3. Long 9F, Agilis, and Preface sheaths were advanced from the right femoral vein. Systemic anticoagulation with heparin was given to achieve an ACT of 350 seconds. ICE catheter was advanced to help guide interatrial transeptal puncture. A CS catheter was inserted. Patient noted to be in atrial flutter, confirmed to be CTI dependent flutter CL 290ms. RF applications to the CTI region terminated the flutter, additional RF lesions applied to achieve bidirectional block. CT imaging of the LA/PVs and 3D electroanatomic/voltage mapping using a Penta-ray catheter (Carto) was used to create an anatomical shell of the LA/PVs. STSF 4mm tip irrigated catheter was used for pulmonary vein isolation (WACA). Confirmed entry and exit block of all 4 pulmonary veins. Protamine sulfate was used to reverse systemic anticoagulation. There was no pericardial effusion pre/post RFA as confirmed by ICE. 3-way stopcock access site closure was applied to both femoral access sites. EP study post RFA 1. Baseline rhythm is sinus rhythm 2. Normal sinus node function ([id number]). 3. Normal AV node function, normal infranodal conduction (HV=40ms). 4. No evidence of accessory pathway. 5. No evidence of dual AV node physiology. 6. VA dissociation. Recommendations 1. Bedrest for 3 hours and stopcock closure device care as directed. 2. Monitor the patient overnight. 3. Resume systemic anticoagulation with apixaban tonight. 4. PPI x 30 days. 5. 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 6. The patient can continue ongoing follow-up with Dr. Moya Consent The procedure was explained including the potential risks of infection, heart perforation, re-operation, and other risks pertinent to procedure. Informed consent and permission to proceed was given. Site Preparation On the day of the procedure, the patient was brought to the operating room and the groin prepped (more content not included)... Normal [facility] Electrophysiology studyon Body surface area Derived from formula 3.17 m2 [facility] Sohail Thompson is a 56 y.o. male who has a past medical history of persistent AF, ATrial flutter, DM type II, HTN, polycythemia, TONYA, morbid obesity possible thromboembolic event/retinal artery occlusion. who presented to the [facility] EP lab for atrial fibrillation ablation. Conclusions Femoral venous access x 3. Long 9F, Agilis, and Preface sheaths were advanced from the right femoral vein. Systemic anticoagulation with heparin was given to achieve an ACT of 350 seconds. ICE catheter was advanced to help guide interatrial transeptal puncture. A CS catheter was inserted. Patient noted to be in atrial flutter, confirmed to be CTI dependent flutter CL 290ms. RF applications to the CTI region terminated the flutter, additional RF lesions applied to achieve bidirectional block. CT imaging of the LA/PVs and 3D electroanatomic/voltage mapping using a Penta-ray catheter (Carto) was used to create an anatomical shell of the LA/PVs. STSF 4mm tip irrigated catheter was used for pulmonary vein isolation (WACA). Confirmed entry and exit block of all 4 pulmonary veins. Protamine sulfate was used to reverse systemic anticoagulation. There was no pericardial effusion pre/post RFA as confirmed by ICE. 3-way stopcock access site closure was applied to both femoral access sites. EP study post RFA 1. Baseline rhythm is sinus rhythm 2. Normal sinus node function ([id number]). 3. Normal AV node function, normal infranodal conduction (HV=40ms). 4. No evidence of accessory pathway. 5. No evidence of dual AV node physiology. 6. VA dissociation. Recommendations 1. Bedrest for 3 hours and stopcock closure device care as directed. 2. Monitor the patient overnight. 3. Resume systemic anticoagulation with apixaban tonight. 4. PPI x 30 days. 5. 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 6. The patient can continue ongoing follow-up with Dr. Moya [facility] GLUCOSE POCon 09-08-2022 Glucose [Mass/Vol] 193 mg/dL High 70 - 99 mg/dL [facility] Interpretation and review of laboratory results Abnormal [facility] POC Sample Type CAPBL [facility] Test performed at address of the patient encounter. [facility] Glucose [Mass/Vol] 165 mg/dL High 70 - 99 mg/dL [facility] Interpretation and review of laboratory results Abnormal [facility] POC Sample Type CAPBL [facility] Test performed at address of the patient encounter. [facility] Glucose [Mass/Vol] 191 mg/dL High 70 - 99 mg/dL [facility] Interpretation and review of laboratory results Abnormal [facility] POC Sample Type CAPBL [facility] Test performed at address of the patient encounter. [facility] Glucose [Mass/Vol] 232 mg/dL High 70 - 99 mg/dL [facility] POC Sample Type ARTER [facility] Glucose [Mass/Vol] 57 mg/dL Low 70 - 99 mg/dL [facility] Glucose [Mass/Vol] 60 mg/dL Low 70 - 99 mg/dL [facility] Glucose [Mass/Vol] 202 mg/dL High 70 - 99 mg/dL [facility] Interpretation and review of laboratory results Abnormal [facility] POC Sample Type CAPBL [facility] Test performed at address of the patient encounter. [facility] MAGNESIUMon 09-08-2022 Interpretation and review of laboratory results Abnormal [facility] Magnesium [Mass/Vol] 1.4 mg/dL Low 1.6 - 2 .6 mg/dL [facility] Magnesium [Mass/Vol] 1.4 mg/dL Low 1.6-2.6 [facility] Comment on above: Performed By: #### M VIVEK [facility] #### [facility] (DEFAULT) [address] [place] [address] No Panel Informationon 09-08 Interpretation and review of laboratory results Abnormal [facility] Test performed at address of the patient encounter. [facility] POC Sample Type VENO [facility] ACT* LOW RANGE, POCon 2022 ACT-LR 357 High [facility] ACT-LR 367 High [facility] ACT-LR [address] [facility] ACT-LR [address] [facility] ACT-LR [address] [facility] ACT-LR 352 High [facility] CBC AND ELECTRONIC DIFFon Basophils (Bld) [#/Vol] 0.05 10*3/uL Normal 0.00-0.09 [facility] Comment on above: Performed By: #### L [id number] #### [facility] (DEFAULT) [address] [address] Basophils/100 WBC (Bld) 0.6 % Normal [facility] Comment on above: Performed By: #### L [id number] #### [facility] (DEFAULT) [address] [address] DIFF STATUS Electronic Differential Normal [facility] Comment on above: Performed By: #### L [id number] #### [facility] (DEFAULT) [address] [address] Eosinophils (Bld) [#/Vol] 0.25 10*3/uL Normal 0.00-0.4 8 [facility] Comment on above: Performed By: #### L [id number] #### [facility] (DEFAULT) [address] [address] Eosinophils/100 WBC (Bld) 3.2 % Normal [facility] Comment on above: Performed By: #### L [id number] #### [facility] (DEFAULT) [address] [address] Hematocrit (Bld) [Volume fraction] 51.0 % High 39.6-48.8 [facility] Comment on above: Performed By: #### L [id number] #### [facility] (DEFAULT) [address] [address] Hemoglobin (Bld) [Mass/Vol] 17.9 g/dL High 13.4-16.8 [facility] Comment on above: Performed By: #### L [id number] #### [facility] (DEFAULT) [address] [address] Immature Grans % 1.8 % Normal [facility] Comment on above: Performed By: #### L [id number] #### [facility] (DEFAULT) [address] [address] Immature Grans Absolute 0.14 K/uL High <=0.07 [facility] Comment on above: Performed By: #### L [id number] #### [facility] (DEFAULT) [address] [place] [address] Lymphocytes (Bld) [#/Vol] 1.85 10*3/uL Normal 0.83-3.5 7 [facility] Comment on above: Performed By: #### L AB980 #### [facility] (DEFAULT) [address] [address] Lymphocytes/100 WBC (Bld) 23.5 % Normal [facility] Comment on above: Performed By: #### L [id number] #### [facility] (DEFAULT) [address] [address] MCV (RBC) [Entitic vol] 85.7 fL Normal 79.0-94.5 [facility] Comment on above: Performed By: #### L [id number] #### [facility] (DEFAULT) [address] [address] Mean Cell Hgb 30.1 pg Normal 26.1-33.3 [facility] Comment on above: Performed By: #### L [id number] #### [facility] (DEFAULT) [address] [address] Mean Cell Hgb Conc 35.1 g/dL Normal 31.9-36.5 [facility] Comment on above: Performed By: #### L [id number] #### [facility] (DEFAULT) [address] [place] [address] Monocytes (Bld) [#/Vol] 0.87 10*3/uL Normal 0.24-0.93 [facility] Comment on above: Performed By: #### L AB980 #### [facility] (DEFAULT) [address] [address] Monocytes/100 WBC (Bld) 11.0 % Normal [facility] Comment on above: Performed By: #### L [id number] #### [facility] (DEFAULT) [address] [place] [address] Nucleated RBC 0.0 /100 WBC Normal <=0.2 [facility] Comment on above: Performed By: #### L [id number] #### [facility] (DEFAULT) [address] [place] [address] Platelet mean volume (Bld) [Entitic vol] 9.6 fL Normal 8.7-12.3 [facility] Comment on above: Performed By: #### L [id number] #### [facility] (DEFAULT) [address] [address] Platelets (Bld) [#/Vol] 203 10*3/uL Normal 146-337 [facility] Comment on above: Performed By: #### L [id number] #### [facility] (DEFAULT) [address] [address] RBC (Bld) [#/Vol] 5.95 10*6/uL High 4.38-5.83 [facility] Comment on above: Performed By: #### L [id number] #### [facility] (DEFAULT) [address] [place] [address] RBC Distribution 13.9 % Normal 10.9-14.3 [facility] Comment on above: Performed By: #### L [id number] #### [facility] (DEFAULT) [address] [place] [address] Segs + Bands Auto 59.9 % Normal [facility] Comment on above: Performed By: #### L [id number] #### [facility] (DEFAULT) [address] [address] Segs + Bands,Absolute Auto 4.72 K/uL Normal 1.57-6.19 [facility] Comment on above: Performed By: #### L AB980 #### [facility] (DEFAULT) [address] [address] WBC (Bld) [#/Vol] 7.88 10*3/uL Normal 3.73-10.10 [facility] Comment on above: Performed By: #### L [id number] #### [facility] (DEFAULT) [address] [place] [address] Basophils (Bld) [#/Vol] 0.05 10*3/uL 0.00 - 0.09 K/uL [facility] Basophils/100 WBC (Bld) 0.6 % [facility] Differential cell count method Nom (Bld) Electronic Differential [facility] Eosinophils (Bld) [#/Vol] 0.25 10*3/uL 0. 00 - 0.48 K/uL [facility] Eosinophils/100 WBC (Bld) 3.2 % [facility] Erythrocyte distribution width (RBC) [Ratio] 13.9 % 10.9 - 14.3 % [facility] Hematocrit (Bld) [Volume fraction] 51.0 % High 39.6 - 48.8 % [facility] Hemoglobin (Bld) [Mass/Vol] 17.9 g/dL High 13.4 - 16.8 g/dL [facility] Immature granulocytes (Bld) [#/Vol] 0.14 10*3/uL High NINF - 0.07 K/uL [facility] Immature granulocytes/100 WBC (Bld) 1.8 % [facility] Interpretation and review of laboratory results Abnormal [facility] Lymphocytes (Bld) [#/Vol] 1.85 10*3/uL 0. 83 - 3.57 K/uL [facility] Lymphocytes/100 WBC (Bld) 23.5 % [facility] MCH (RBC) [Entitic mass] 30.1 pg 26. 1 - 33.3 pg [facility] MCHC (RBC) [Mass/Vol] 35.1 g/dL 31.9 - 36.5 g/dL [facility] MCV (RBC) [Entitic vol] 85.7 fL 79.0 - 94.5 fL [facility] Monocytes (Bld) [#/Vol] 0.87 10*3/uL 0.24 - 0.93 K/uL [facility] Monocytes/100 WBC (Bld) 11.0 % [facility] Neutrophils (Bld) [#/Vol] 4.72 10*3/uL 1. 57 - 6.19 K/uL [facility] Nucleated RBC/100 WBC (Bld) [Ratio] 0.0 % NINF [facility] Platelet mean volume (Bld) [Entitic vol] 9.6 fL 8.7 - 12.3 fL [facility] Platelets (Bld) [#/Vol] 203 10*3/uL 146 - 337 K/uL [facility] RBC (Bld) [#/Vol] 5.95 10*6/uL High [facility] Segmented neutrophils/100 WBC (Bld) 59.9 % [facility] WBC (Bld) [#/Vol] 7.88 10*3/uL 3.73 - 10.10 K/uL [facility] CHEM 7 (LYTES,BUN,CREA,GLUC) on 09-07-2022 Anion gap [Moles/Vol] 15 mmol/L Normal 7-17 [facility] Comment on above: Performed By: #### C HM7, MGO #### [facility] (DEFAULT) [address] [place] [address] Chloride [Moles/Vol] 106 mmol/L Normal 98-108 [facility] Comment on above: Performed By: #### C HM7, MGO #### [facility] (DEFAULT) [address] [place] [address] CO2 [Moles/Vol] 22 mmol/L Normal 21-31 [facility] Comment on above: Performed By: #### C HM7, MGO #### [facility] (DEFAULT) [address] [place] [address] Creatinine [Mass/Vol] 0.99 mg/dL Normal 0.70-1.30 [facility] Comment on above: Performed By: #### C HM7, MGO #### [facility] (DEFAULT) [address] [place] [address] eGFR, CKD-EPI, Male > Normal >=60 [facility] Comment on above: Result Comment: Repo rted eGFR is based on the CKD-EPI 2020 equation using creatinine, age, and sex. Performed By: #### C HM7, MGO #### [facility] (DEFAULT) [address] [place] [address] Glucose [Mass/Vol] 190 mg/dL High 70-99 [facility] Comment on above: Performed By: #### C HM7, MGO #### [facility] (DEFAULT) [address] [place] [address] Osmolality [Osmolality] 299 mosm/kg Normal 278-305 [facility] Comment on above: Performed By: #### C HM7, MGO #### [facility] (DEFAULT) [address] [place] [address] Potassium [Moles/Vol] 4.2 mmol/L Normal 3.5-5.0 [facility] Comment on above: Performed By: #### C HM7, MGO #### [facility] (DEFAULT) [address] [place] [address] Sodium [Moles/Vol] 139 mmol/L Normal 135-145 [facility] Comment on above: Performed By: #### C HM7, MGO #### [facility] (DEFAULT) [address] [place] [address] Urea nitrogen [Mass/Vol] 19 mg/dL Normal 7-25 [facility] Comment on above: Performed By: #### C HM7, MGO #### [facility] (DEFAULT) [address] [place] [address] Urea nitrogen/Creatinine [Mass ratio] 19 mg/mg Normal [facility] Comment on above: Performed By: #### C HM7, MGO #### [facility] (DEFAULT) [address] [place] [address] Anion gap [Moles/Vol] 15 mmol/L 7 - 17 mmol/L [facility] Chloride [Moles/Vol] 106 mmol/L 98 - 10 8 mmol/L [facility] CO2 [Moles/Vol] 22 mmol/L 21 - 31 mmol/L [facility] Creatinine [Mass/Vol] 0.99 mg/dL 0.70 - 1.30 mg/dL [facility] GFR/1.73 sq M.predicted CKD-EPI (S/P/Bld) [Vol rate/Area] - PINF [facility] Comment on above: Reported eGFR is bas ed on the CKD-EPI 2020 equation using creatinine, age, and sex. Glucose [Mass/Vol] 190 mg/dL High 70 - 99 mg/dL [facility] Interpretation and review of laboratory results Abnormal [facility] Osmolality Calc [Osmolality] 299 [facility] Potassium [Moles/Vol] 4.2 mmol/L 3.5 - 5.0 mmol/L [facility] Sodium [Moles/Vol] 139 mmol/L 135 - 145 mmol/L [facility] Urea nitrogen [Mass/Vol] 19 mg/dL 7 - 25 mg/dL [facility] Urea nitrogen/Creatinine [Mass ratio] 19 mg/mg [facility] CREAT/GFRon 09-07-2022 Creatinine [Mass/Vol] 1.01 mg/dL 0.70 - 1.30 mg/dL [facility] GFR/1.73 sq M.predicted CKD-EPI (S/P/Bld) [Vol rate/Area] 88 - PINF [facility] Comment on above: Reported eGFR is bas ed on the CKD-EPI 2020 equation using creatinine, age, and sex. Interpretation and review of laboratory results Normal [facility] Test performed at address of the patient encounter. [facility] CT CARDIAC PULMONARY VENOGRA [facility] 09-07-2022 CT CARDIAC PULMONARY VENOGRAM [facility] CT Report Name: SOHAIL THOMPSON: 1965 Scan Date: 2022-09-07 08:41:51 Electronically signed by Monserrat Samano 09:48:54 VITALS HEIGHT: 77 in (195.58 cm) WEIGHT: 455.00 lbs (206.38 kgs) BSA: 3.17 m^2 BMI: 54 kg/m^2 BP: 164 / 102 mmHg BASELINE HR: 94 BPM FINAL 56 yo M with atrial fibrillation was referred for CT pulmonary venogram prior to AF ablation. 1. No LA, RA or VALENTE thrombus 2. Mild -moderate coronary calcification and mild aortic valve calcification. 3. Normal pulmonary venous anatomy 4. Dilamted main Pulmonary artery (3.6) suggesting pulmonary hypertension. 5. Limited image quality due to high noise due to high BMI. 1. There are 4 pulmonary veins (PV) draining to the left atrium (LA). The measurements of the PV at their ostial LA insertion sites are measured with dimensions as follows: RSPV 21 mm x 21 mm RIPV 19 mm x 19 mm LSPV 22 mm x 19 mm LIPV 20 mm x 9 mm 2. There is no LA or LA appendage thrombus by first pass or delayed images. 3. Coronary and aortic valve calcifications seen. However, the study is not optimized for coronary calcification detection or for luminal stenosis evaluation. 4. Dilated main pulmonary artery (36 mm) The ascending aorta measures 38 mm. The pulmonary artery is dilated and measures 36 mm. Coronary and aortic valve calcifications seen. However, the study is not optimized for coronary calcification detection or for luminal stenosis evaluation. There are no ascending aortic, descending aortic, and mitral annular calcifications. Incidental non-cardiac findings include the following, from the available limited field of view in this cardiac-oriented exam: - Pericardium: Normal, without thickening or effusion. - Mediastinum: Normal, without calcific adenopathy apparent. - Lungs/Luh: No significant adenopathy, masses, or infiltrates visualized. Small (4x4 mm) calcified nodule in the left upper lobe. - Pleural Spaces: Normal, without thickening, effusion, or pneumothorax. - Bone: Mild degenerative joint disease and bony spurs in the thoracic spine. STUDY QUALITY: Study quality is fair. Low SNR due to obesity. SCAN INFO TEST TYPE: Venogram SCANNER NUMERICAL CONTROL ROUTER OPERATOR: Postcron SCANNER MODEL: [employer] CT750 HD DOSE REDUCTION ALGORITHM: Helical with dose modulation SCAN COVERAGE ZONE: Pulmonary Veins/VALENTE EKG GATED: No GENERAL CONTRAST AGENT CONTRAST AGENT USED?: Yes TYPE: Omnipaque 350 DOSE: 80 ml RATE: 4 ml/s ROUTE: IV BOLUS TECHNIQUE: Biphasic SCAN DELAY TIME METHOD: Smart Prep SERUM CREATININE: 1.01 mg/dL GFR: 81.82 ml/min/1.73m^2 CREATININE DATE: CT CONTRAST REACTION: None RADIATION DOSE DLP: 720.04 SETUP DATE OF EVENT: SCAN TYPE: Clinical PATIENT TYPE: Outpatient REASON(S) FOR SCAN: EP procedure planning REFERRING PHYSICIAN: 1Ana MOYA FELLOW: Sonia Wylie NURSE: Marcie Hassan ATTENDING PHYSICIAN: MONSERRAT Randhawa TECHNOLOGIST: Sergio Gonzalez Patient Account [id number] CPT Codes 93692 ICD10 Codes R00.2, I48.0 Report generated by [employer], a product of [employer] [facility] CT Report Name: SOHAIL THOMPSON : 1965 Scan Date: 2022-09-07 08:41:51 Electronically signed by Monserrat Samano 09:48:54 VITALS HEIGHT: 77 in (195.58 cm) WEIGHT: 455.00 lbs (206.38 kgs) BSA: 3.17 m^2 BMI: 54 kg/m^2 BP: 164 / 102 mmHg BASELINE HR: 94 BPM FINAL IMPRESSION 56 yo M with atrial fibrillation was referred for CT pulmonary venogram prior to AF ablation. 1. No LA, RA or VALENTE thrombus 2. Mild -moderate coronary calcification and mild aortic valve calcification. 3. Normal pulmonary venous anatomy 4. Dilamted main Pulmonary artery (3.6) suggesting pulmonary hypertension. 5. Limited image quality due to high noise due to high BMI. 1. There are 4 pulmonary veins (PV) draining to the left atrium (LA). The measurements of the PV at their ostial LA insertion sites are measured with dimensions as follows: RSPV 21 mm x 21 mm RIPV 19 mm x 19 mm LSPV 22 mm x 19 mm LIPV 20 mm x 9 mm 2. There is no LA or LA appendage thrombus by first pass or delayed images. 3. Coronary and aortic valve calcifications seen. However, the study is not optimized for coronary calcification detection or for luminal stenosis evaluation. 4. Dilated main pulmonary artery (36 mm) The ascending aorta measures 38 mm. The pulmonary artery is dilated and measures 36 mm. Coronary and aortic valve calcifications seen. However, the study is not optimized for coronary calcification detection or for luminal stenosis evaluation. There are no ascending aortic, descending aortic, and mitral annular calcifications. Incidental non-cardiac findings include the following, from the available limited field of view in this cardiac-oriented exam: - Pericardium: Normal, without thickening or effusion. - Mediastinum: Normal, without calcific adenopathy apparent. - Lungs/Luh: No significant adenopathy, masses, or infiltrates visualized. Small (4x4 mm) calcified nodule in the left upper lobe. - Pleural Spaces: Normal, without thickening, effusion, or pneumothorax. - Bone: Mild degenerative joint disease and bony spurs in the thoracic spine. STUDY QUALITY: Study quality is fair. Low SNR due to obesity. SCAN INFO TEST TYPE: Venogram SCANNER NUMERICAL CONTROL ROUTER OPERATOR: Postcron SCANNER MODEL: [employer] CT750 Locaid DOSE REDUCTION ALGORITHM: Helical with dose modulation SCAN COVERAGE ZONE: Pulmonary Veins/VALENTE EKG GATED: No GENERAL CONTRAST AGENT CONTRAST AGENT USED?: Yes TYPE: Omnipaque 350 DOSE: 80 ml RATE: 4 ml/s ROUTE: IV BOLUS TECHNIQUE: Biphasic SCAN DELAY TIME METHOD: Smart Prep SERUM CREATININE: 1.01 mg/dL GFR: 81.82 ml/min/1.73m^2 CREATININE DATE: CT CONTRAST REACTION: None RADIATION DOSE DLP: 720.04 SETUP DATE OF EVENT: SCAN TYPE: Clinical PATIENT TYPE: Outpatient REASON(S) FOR SCAN: EP procedure planning REFERRING PHYSICIAN: 1) KENYON MOYA FELLOW: Sonia Wylie NURSE: Marcie Hassan ATTENDING PHYSICIAN: MONSERRAT Randhawa TECHNOLOGIST: Sergio Gonzalez Patient Account [id number] CPT Codes 41905 ICD10 Codes R00.2, I48.0 Report generated by [employer], a product of [employer] CARDIOLOGY Monserrat Samano MD - 09/07/[address] [facility] CT Report Name: SOHAIL THOMPSON : 1965 Scan Date: 2022-09-07 08:41:51 Electronically signed by Monserrat Samano 09:48:54 VITALS === ======= HEIGHT: 77 in (195.58 cm) WEIGHT: 455.00 lbs (206.38 kgs) BSA: 3.17 m^2 BMI: 54 kg/m^2 BP: 164 / 102 mmHg BASELINE HR: 94 BPM FINAL IMPRESSION === ======= 56 yo M with atrial fibrillation was referred for CT pulmonary venogram prior to AF ablation. 1. No LA, RA or VALENTE thrombus 2. Mild -moderate coronary calcification and mild aortic valve calcification. 3. Normal pulmonary venous anatomy 4. Dilamted main Pulmonary artery (3.6) suggesting pulmonary hypertension. 5. Limited image quality due to high noise due to high BMI. === 1. There are 4 pulmonary veins (PV) draining to the left atrium (LA). The measurements of the PV at their ostial LA insertion sites are measured with dimensions as follows: RSPV 21 mm x 21 mm RIPV 19 mm x 19 mm LSPV 22 mm x 19 mm LIPV 20 mm x 9 mm 2. There is no LA or LA appendage thrombus by first pass or delayed images. 3. Coronary and aortic valve calcifications seen. However, the study is not optimized for coronary calcification detection or for luminal stenosis evaluation. 4. Dilated main pulmonary artery (36 mm) The ascending aorta measures 38 mm. The pulmonary artery is dilated and measures 36 mm. Coronary and aortic valve calcifications seen. However, the study is not optimized for coronary calcification detection or for luminal stenosis evaluation. There are no ascending aortic, descending aortic, and mitral annular calcifications. Incidental non-cardiac findings include the following, from the available limited field of view in this cardiac-oriented exam: - Pericardium: Normal, without thickening or effusion. - Mediastinum: Normal, without calcific adenopathy apparent. - Lungs/Luh: No significant adenopathy, masses, or infiltrates visualized. Small (4x4 mm) calcified nodule in the left upper lobe. - Pleural Spaces: Normal, without thickening, effusion, or pneumothorax. - Bone: Mild degenerative joint disease and bony spurs in the thoracic spine. STUDY QUALITY: Study quality is fair. Low SNR due to obesity. SCAN INFO === ======= TEST TYPE: Venogram SCANNER NUMERICAL CONTROL ROUTER OPERATOR: Postcron SCANNER MODEL: [employer] CT750 HD DOSE REDUCTION ALGORITHM: Helical with dose modulation SCAN COVERAGE ZONE: Pulmonary Veins/VALENTE EKG GATED: No GENERAL --- CONTRAST AGENT CONTRAST AGENT USED?: Yes TYPE: Omnipaque 350 DOSE: 80 ml RATE: 4 ml/s ROUTE: IV BOLUS TECHNIQUE: Biphasic SCAN DELAY TIME METHOD: Smart Prep SERUM CREATININE: 1.01 mg/dL GFR: 81.82 ml/min/1.73m^2 CREATININE DATE: CT CONTRAST REACTION: None RADIATION DOSE DLP: 720.04 SETUP DATE OF EVENT: SCAN TYPE: Clinical PATIENT TYPE: Outpatient REASON(S) FOR SCAN: EP procedure planning REFERRING PHYSICIAN: 1) KENYON MOYA FELLOW: Sonia Wylie NURSE: Marcie Hassan ATTENDING PHYSICIAN: MONSERRAT Randhawa TECHNOLOGIST: Sergio Gonzalez BILL[place]Y === ======= Patient Account [id number] CPT Codes 72191 ICD10 Codes R00.2, I48.0 Report generated by [employer], a product of [employer] [facility] Radiology Study observation (narrative) [facility] CT CARDIAC PULMONARY VENOGRA MOrdered By: Monserrat Samano on 09-07-2022 [facility] Work Phone: Electrophysiology studyon Radiology Study observation (narrative) [facility] GLUCOSE POCon 09-07-2022 Glucose [Mass/Vol] 252 mg/dL High 70 - 99 mg/dL [facility] Interpretation and review of laboratory results Abnormal [facility] POC Sample Type CAPBL [facility] Test performed at address of the patient encounter. [facility] Glucose [Mass/Vol] 187 mg/dL High 70 - 99 mg/dL [facility] Glucose [Mass/Vol] 321 mg/dL High 70 - 99 mg/dL [facility] POC Sample Type VENO [facility] POC Sample Type CAPBL [facility] Glucose [Mass/Vol] 275 mg/dL High 70 - 99 mg/dL [facility] Interpretation and review of laboratory results Abnormal [facility] POC Sample Type CAPBL [facility] Test performed at address of the patient encounter. [facility] No Panel Informationon 09-07 Interpretation and review of laboratory results Abnormal [facility] Test performed at address of the patient encounter. [facility] Interpretation and review of laboratory results Abnormal [facility] Test performed at address of the patient encounter. [facility] Interpretation and review of laboratory results Abnormal [facility] Test performed at address of the patient encounter. [facility] PT,INR,PTTon 09-07-2022 aPTT Coag (Bld) [Time] 26.8 s Normal 24.0-34.3 [facility] Comment on above: Performed By: #### P TPTT #### [facility] (DEFAULT) [address] [address] INR Coag (PPP) [Relative time] 1.0 {INR} Normal 0.9-1.1 [facility] Comment on above: Performed By: #### P TPTT #### [facility] (DEFAULT) [address] [place] [address] PT Coag (PPP) [Time] 13.6 s Normal 11.9-14.2 [facility] Comment on above: Performed By: #### P TPTT #### [facility] (DEFAULT) [address] [place] [address] aPTT Coag (PPP) [Time] 26.[address] [facility] INR Coag (Bld) [Relative time] 1.0 {INR} 0.9 - 1.1 [facility] Interpretation and review of laboratory results Normal [facility] PT Coag (PPP) [Time] 13.6 s [facility] Absolute lymphocyte countOrd ered By: Dr. Felder on 06-03-2022 Lymphocytes Auto (Unsp spec) [#/Vol] 1.82 10*3/uL 0.83-4.51 [facility] Basophil percentageOrdered B y: Dr. Felder on 06-03-2022 Basophils/100 WBC (Bld) 0.6 % 0-1 [facility] Bilirubin [Mass/Vol] 0.60 mg/dL 0.20-1.00 [facility] Comment on above: For patients on eltr ombopag therapy, use of Dimension [place] TBIL is not recommended. Chloride [Moles/Vol] 107 mmol/L 98-107 [facility] Cholesterol [Mass/Vol] 130 mg/dL <200 [facility] Comment on above: <200 mg/dL Desirable 200-240 mg/dL Borderline >240 mg/dL High Risk Eosinophils/100 WBC (Bld) 3.4 % 0-5 [facility] Glucose [Mass/Vol] 168 mg/dL 74-106 [facility] Comment on above: Fasting Glucose resu lt greater than or equal to 126 mg/dL suggests DIABETES MELLITUS per A.D.A. criteria. Neutrophils (Bld) [#/Vol] 4.0 10*3/uL 2.0-7.7 [facility] Neutrophils/100 WBC (Bld) 57.2 % 47-70 [facility] Potassium [Moles/Vol] 4.3 mmol/L 3.5-5.1 [facility] Protein [Mass/Vol] 7.2 g/dL 6.4-8.2 [facility] Sodium [Moles/Vol] 140 mmol/L 136-145 [facility] Triglyceride [Mass/Vol] 364 mg/dL <199 [facility] Comment on above: The drugs N-Acetylcy steine and Metamizole may falsely depress this assay.Serum Triglycerides Reference Interval Normal <150 mg/dL Borderline high 150 - 199 mg/dL High 200 - 499 mg/dL Very High > or = 500 mg/dL WBC (Bld) [#/Vol] 7.0 10*3/uL 4.4-11.0 [facility] Blood erythrocytes count (nu mber/volume)Ordered By: Dr. Felder on 06-03-2022 RBC (Bld) [#/Vol] 5.97 10*6/uL 4.6-6.2 [facility] Blood hemoglobin measurement (mass/volume)Ordered By: Dr. Felder on 06-03-2022 Hemoglobin (Bld) [Mass/Vol] 17.9 g/dL 13.0-16.5 [facility] Blood lymphocytes/100 leukoc ytesOrdered By: Dr. Felder on 06-03-2022 Lymphocytes/100 WBC (Bld) 25.9 % 19-41 [facility] Blood monocytes/100 leukocyt esOrdered By: Dr. Felder on 06-03-2022 Monocytes/100 WBC (Bld) 11.8 % 0-10 [facility] Blood platelet mean volumeOr dered By: Dr. Felder on 06-03-2022 Platelet mean volume (Bld) [Entitic vol] 9.7 fL 6.2-12.0 [facility] Determination of erythrocyte mean corpuscular volume (MCV)Ordered By: Dr. Felder on 06-03-2022 MCV (RBC) [Entitic vol] 86.3 fL 80-94 [facility] Hematocrit Auto (Bld) [Volum e fraction]Ordered By: Dr. Felder on 06-03-2022 Hematocrit (Bld) [Volume fraction] 51.5 % 40-54 [facility] Laboratory - Chemistry and C hemistry - challengeOrdered By: Dr. Felder on 06-03-2022 ALP [Catalytic activity/Vol] 56 U/L 45-117 [facility] ALT [Catalytic activity/Vol] 28 U/L 16-61 [facility] CO2 [Moles/Vol] 25.0 mmol/L 21.0-32.0 [facility] Globulin (S) [Mass/Vol] 3.4 g/dL 2.2-4.2 [facility] Urea nitrogen/Creatinine [Mass ratio] 25.3 mg/mg 10-20 [facility] Laboratory - Hematology and Cell countsOrdered By: Dr. Felder on 06-03-2022 Erythrocyte distribution width (RBC) [Entitic vol] 42.7 fL 35.1-43.9 [facility] Erythrocyte distribution width (RBC) [Ratio] 13.7 % 11.6-14.6 [facility] Immature granulocytes/100 WBC (Bld) 1.100 % 0.0-0.9 [facility] Comment on above: IG% - Immature Granu locytes (promyelocytes, myelocytes and metamyelocytes) > 1% indicates that a LEFT SHIFT is Present. MCH (RBC) [Entitic mass] 30.0 pg 27.0-32.0 [facility] Nucleated RBC/100 WBC (Bld) [Ratio] 0 % 0-5 [facility] MCHC Auto (RBC) [Mass/Vol]Or dered By: Dr. Felder on 06-03-2022 MCHC (RBC) [Mass/Vol] 34.8 g/dL 32-36 [facility] No Panel InformationOrdered By: Dr. Felder on 06-03-2022 Estimated GFR (MDRD) Amer 106 mL/min >60 [facility] Comment on above: GFR Calc Estimated GFR (MDRD) Non-Af Amer 88 mL/min >60 [facility] Comment on above: Non- GFR Calc Thyroid Stimulating Hormone (TSH) 1.03 uIU/mL 0.358-3.74 [facility] Platelets bldOrdered By: Dr. Felder on 06-03-2022 Platelets (Bld) [#/Vol] 207 10*3/uL 150-450 [facility] Serum or plasma albumin colton urement (mass/volume)Ordered By: Dr. Felder on 06-03-2022 Albumin [Mass/Vol] 3.8 g/dL 3.2-5.0 [facility] Serum or plasma albumin/glob ulin mass ratioOrdered By: Dr. Felder on 06-03-2022 Albumin/Globulin [Mass ratio] 1.1 {ratio} 0.9-2.4 [facility] Serum or plasma calcium colton urement (mass/volume)Ordered By: Dr. Felder on 06-03-2022 Calcium [Mass/Vol] 9.1 mg/dL 8.5-10.1 [facility] Serum or plasma cholesterol in HDL measurement (mass/volume)Ordered By: Dr. Felder on 06-03-2022 Cholesterol in HDL [Mass/Vol] 36 mg/dL >40 [facility] Comment on above: The drugs N-Acetylcy steine and Metamizole may falsely depress this assay. Reference Range HDL <40 mg/dL Low HDL Cholesterol HDL >or= 60 mg/dL High HDL Cholesterol Serum or plasma cholesterol in VLDL measurement (mass/volume)Ordered By: Dr. Felder on 06-03-2022 Cholesterol in VLDL [Mass/Vol] 73 mg/dL 5-40 [facility] Serum or plasma creatinine m easurement (mass/volume)Ordered By: Dr. Felder on 06-03-2022 Creatinine [Mass/Vol] 0.95 mg/dL 0.70-1.30 [facility] Comment on above: The validity of the calculated GFR & GFRAA in patients over 70 years has not been determined. Clinical correlation is essential. Serum or plasma low density lipoprotein (LDL) cholesterol measurement (mass/volume)Ordered By: Dr. Felder on 06-03-2022 Cholesterol in LDL [Mass/Vol] 21 mg/dL 0-130 [facility] Serum or plasma urea nitroge n measurement (mass/volume)Ordered By: Dr. Felder on 06-03-2022 Urea nitrogen [Mass/Vol] 24 mg/dL 7-18 [facility] Serum or plasma uric acid me asurement (mass/volume)Ordered By: Dr. Felder on 06-03-2022 Urate [Mass/Vol] 6.1 mg/dL 3.5-7.2 [facility] Comment on above: The drugs N-Acetylcy steine and Metamizole may falsely depress this assay. Thin prep Papanicolaou smear with manual screeningOrdered By: Dr. Felder on 06-03-2022 Thin prep Papanicolaou smear with manual screening 14 U/L 15-37 [facility] Thin prep Papanicolaou smear with manual screening 8 5-15 [facility] Glucose Glucometer (BldC) [M ass/Vol]on 03-11-2022 Glucose [Mass/Vol] 116 mg/dL 74-106 [facility] Work Phone: Comment on above: MANAGEMENT OF PATIEN T CARE PER NURSING PROTOCOL Laboratory - Chemistry and C hemistry - challengeon 02-17-2022 Transferrin [Mass/Vol] 277 mg/dL 177-329 [facility] Work Phone: Comment on above: Performed at: [address] Director: Joshua Galvan PhD, Phone: [phone] Absolute lymphocyte counton 02-15-2022 Lymphocytes Auto (Unsp spec) [#/Vol] 2.79 10*3/uL 0.83-4.51 [facility] Work Phone: Basophil percentageon 2021 Basophils/100 WBC (Bld) 0.8 % 0-1 [facility] Work Phone: Bilirubin [Mass/Vol] 0.60 mg/dL 0.20-1.00 [facility] Work Phone: Comment on above: For patients on eltr ombopag therapy, use of Dimension [place] TBIL is not recommended. Chloride [Moles/Vol] 102 mmol/L 98-107 [facility] Work Phone: Cholesterol [Mass/Vol] 147 mg/dL <200 [facility] Work Phone: Comment on above: <200 mg/dL Desirable 200-240 mg/dL Borderline >240 mg/dL High Risk Eosinophils/100 WBC (Bld) 3.5 % 0-5 [facility] Work Phone: Glucose [Mass/Vol] 124 mg/dL 74-106 [facility] Work Phone: Comment on above: Fasting Glucose resu lt from 100 to 125 mg/dL suggests IMPAIRED HOMEOSTASIS per A.D.A. criteria. Neutrophils (Bld) [#/Vol] 5.0 10*3/uL 2.0-7.7 [facility] Work Phone: Neutrophils/100 WBC (Bld) 54.2 % 47-70 [facility] Work Phone: Potassium [Moles/Vol] 3.8 mmol/L 3.5-5.1 [facility] Work Phone: Protein [Mass/Vol] 7.7 g/dL 6.4-8.2 [facility] Work Phone: Sodium [Moles/Vol] 135 mmol/L 136-145 [facility] Work Phone: Triglyceride [Mass/Vol] 279 mg/dL <199 [facility] Work Phone: Comment on above: The drugs N-Acetylcy steine and Metamizole may falsely depress this assay.Serum Triglycerides Reference Interval Normal <150 mg/dL Borderline high 150 - 199 mg/dL High 200 - 499 mg/dL Very High > or = 500 mg/dL WBC (Bld) [#/Vol] 9.1 10*3/uL 4.4-11.0 [facility] Work Phone: Blood erythrocytes count (nu mber/volume)on 02-15-2022 RBC (Bld) [#/Vol] 5.83 10*6/uL 4.6-6.2 [facility] Work Phone: Blood hemoglobin measurement (mass/volume)on 02-15-2022 Hemoglobin (Bld) [Mass/Vol] 17.3 g/dL 13.0-16.5 [facility] Work Phone: Blood lymphocytes/100 leukoc yteson 02-15-2022 Lymphocytes/100 WBC (Bld) 30.6 % 19-41 [facility] Work Phone: Blood monocytes/100 leukocyt eson 02-15-2022 Monocytes/100 WBC (Bld) 9.7 % 0-10 [facility] Work Phone: Blood platelet mean volumeon 02-15-2022 Platelet mean volume (Bld) [Entitic vol] 9.8 fL 6.2-12.0 [facility] Work Phone: Determination of erythrocyte mean corpuscular volume (MCV)on 02-15-2022 MCV (RBC) [Entitic vol] 86.3 fL 80-94 [facility] Work Phone: Hematocrit Auto (Bld) [Volum e fraction]on 02-15-2022 Hematocrit (Bld) [Volume fraction] 50.3 % 40-54 [facility] Work Phone: Iron measurement (mass/mass) on 02-15-2022 Iron (Unsp spec) [Mass/Mass] 78 ug/dL 65-175 [facility] Work Phone: Laboratory - Chemistry and C hemistry - challengeon 02-15-2022 ALP [Catalytic activity/Vol] 49 U/L 45-117 [facility] Work Phone: ALT [Catalytic activity/Vol] 25 U/L 16-61 [facility] Work Phone: CO2 [Moles/Vol] 21.0 mmol/L 21.0-32.0 [facility] Work Phone: Globulin (S) [Mass/Vol] 4.2 g/dL 2.2-4.2 [facility] Work Phone: Urea nitrogen/Creatinine [Mass ratio] 20.6 mg/mg 10-20 [facility] Work Phone: Laboratory - Hematology and Cell countson 02-15-2022 Erythrocyte distribution width (RBC) [Entitic vol] 42.2 fL 35.1-43.9 [facility] Work Phone: Erythrocyte distribution width (RBC) [Ratio] 13.7 % 11.6-14.6 [facility] Work Phone: Immature granulocytes/100 WBC (Bld) 1.200 % 0.0-0.9 [facility] Work Phone: Comment on above: IG% - Immature Granu locytes (promyelocytes, myelocytes and metamyelocytes) > 1% indicates that a LEFT SHIFT is Present. MCH (RBC) [Entitic mass] 29.7 pg 27.0-32.0 [facility] Work Phone: Nucleated RBC/100 WBC (Bld) [Ratio] 0 % 0-5 [facility] Work Phone: MCHC Auto (RBC) [Mass/Vol]on 02-15-2022 MCHC (RBC) [Mass/Vol] 34.4 g/dL 32-36 [facility] Work Phone: No Panel Informationon 02-15 Estimated GFR (MDRD) Amer 93 mL/min >60 [facility] Work Phone: Comment on above: GFR Calc Estimated GFR (MDRD) Non-Af Amer 77 mL/min >60 [facility] Work Phone: Comment on above: Non- GFR Calc Total Iron Binding Capacity 333 ug/dL 250-450 [facility] Work Phone: Urine Microalbumin/Creatinine Ratio 347.7 mg/g CRE <30 [facility] Work Phone: Platelets bldon 02-15-2022 Platelets (Bld) [#/Vol] 232 10*3/uL 150-450 [facility] Work Phone: Serum or plasma albumin colton urement (mass/volume)on 02-15-2022 Albumin [Mass/Vol] 3.5 g/dL 3.2-5.0 [facility] Work Phone: Serum or plasma albumin/glob ulin mass ratioon 02-15-2022 Albumin/Globulin [Mass ratio] 0.8 {ratio} 0.9-2.4 [facility] Work Phone: Serum or plasma calcium colton urement (mass/volume)on 02-15-2022 Calcium [Mass/Vol] 8.8 mg/dL 8.5-10.1 [facility] Work Phone: Serum or plasma cholesterol in HDL measurement (mass/volume)on 02-15-2022 Cholesterol in HDL [Mass/Vol] 41 mg/dL >40 [facility] Work Phone: Comment on above: The drugs N-Acetylcy steine and Metamizole may falsely depress this assay. Reference Range HDL <40 mg/dL Low HDL Cholesterol HDL >or= 60 mg/dL High HDL Cholesterol Serum or plasma cholesterol in VLDL measurement (mass/volume)on 02-15-2022 Cholesterol in VLDL [Mass/Vol] 56 mg/dL 5-40 [facility] Work Phone: Serum or plasma creatinine m easurement (mass/volume)on 02-15-2022 Creatinine [Mass/Vol] 1.07 mg/dL 0.70-1.30 [facility] Work Phone: Comment on above: The validity of the calculated GFR & GFRAA in patients over 70 years has not been determined. Clinical correlation is essential. Serum or plasma ferritin gino surement (mass/volume)on 02-15-2022 Ferritin [Mass/Vol] 196 ng/mL 26-388 [facility] Work Phone: Serum or plasma iron saturat ion measurement (mass fraction)on 02-15-2022 Iron saturation [Mass fraction] 23.4 % 15.0-55.0 [facility] Work Phone: Serum or plasma low density lipoprotein (LDL) cholesterol measurement (mass/volume)on 02-15-2022 Cholesterol in LDL [Mass/Vol] 50 mg/dL 0-130 [facility] Work Phone: Serum or plasma urea nitroge n measurement (mass/volume)on 02-15-2022 Urea nitrogen [Mass/Vol] 22 mg/dL 7-18 [facility] Work Phone: Serum or plasma uric acid me asurement (mass/volume)on 02-15-2022 Urate [Mass/Vol] 6.6 mg/dL 3.5-7.2 [facility] Work Phone: Comment on above: The drugs N-Acetylcy steine and Metamizole may falsely depress this assay. Thin prep Papanicolaou smear with manual screeningon 02-15-2022 Thin prep Papanicolaou smear with manual screening 14 U/L 15-37 [facility] Work Phone: Thin prep Papanicolaou smear with manual screening 12 5-15 [facility] Work Phone: Thin prep Papanicolaou smear with manual screening 258.0 mg/L NO RANGE EST. [facility] Work Phone: Urine creatinine measurement (mass/volume)on 02-15-2022 Creatinine (U) [Mass/Vol] 74.20 mg/dL NO RANGE EST. [facility] Work Phone: Whole blood hemoglobin A1c/t otal hemoglobin ratio (mass fraction)on 02-15-2022 HbA1c (Bld) [Mass fraction] 7.9 % 3.8-5.6 [facility] Work Phone: Comment on above: Normal < 5.7 % Predi abetic 5.7 - 6.4 % Diabetic >or= 6.5 % Please note range changes. ANES POSTPROC EVALon 022 ANES POSTPROC EVAL HNO ID: [id number] Author: Nichole Humphries MD Service: ? Author Type: Anesthesiologist Type: Anesthesia Postprocedure Evaluation Filed: 01/03/2022 8:43 AM Note Text: POST ANESTHESIA EVALUATION NOTE : 1965 Procedure Summary Date: 01/03/22 Room / Location: [facility] Endoscopy Anesthesia Start: 800 Anesthesia Stop: 830 Procedure: COLONOSCOPY SCREENING Diagnosis: Personal history of colonic polyps (High risk colon cancer surveillance: Personal history of colonic polyps) Scheduled Providers: Anjel Avilez MD; FANY Henson; Nichole Humphires MD Responsible Provider: Nichole Humphries MD Anesthesia Type: MAC ASA Status: 3 Anesthesia Type: MAC Last Vitals Vitals Value Taken Time BP 154/82 01/03/22 0838 Temp 36.4 ?C (97.5 ?F) 01/03/22 0838 Pulse 92 01/03/22 0842 Resp 17 01/03/22 0842 SpO2 95 % 01/03/22 0842 Vitals shown include unvalidated device data. Post Anesthesia Patient Status Patient Evaluation: PACU. PACU/ICU Patient Condition: stable. Anticipated Disposition: phase 2 then home. Neurological Status: aware and responsive. Pulmonary Status: breathing comfortably on room air Airway Control: returned to baseline unsupported. Cardiovascular Status: stable. Pain Management: clinically adequate - multimodal analgesia pain management approach Postoperative Hydration: acceptable. Intraoperative Events: no significant anesthesia events Post Operative Nausea/Vomiting Status: no significant post operative nausea or vomiting Anesthetic Observations: Recommendation: continue current plan of care. Anesthesia Observations No Documentation SIGNATURE: Nichole Humphries MD PATIENT NAME: Sohail Thompson DATE: January 03, 2022 TIME: 8:43 AM CSN: [id number] Normal [facility] ANES PRE-OPon 01-03-2022 ANES PRE-OP HNO ID: [id number] Author: Nichole Humphries MD Service: ? Author Type: Anesthesiologist Type: Anesthesia Preprocedure Evaluation Filed: 01/03/2022 7:31 AM Note Text: ANESTHESIOLOGY DAY OF SURGERY NOTE : 1965 Procedure Information Date/Time: 01/03/22 0815 Scheduled providers: Anjel Avilez MD; FANY Henson; Nichole Humphries MD Procedure: COLONOSCOPY SCREENING Location: [facility] Endoscopy Estimated body mass index is 52.41 kg/m? as calculated from the following: Height as of this encounter: 195.6 cm (6' 5). Weight as of this encounter: 200.5 kg (442 lb). Most recent hematocrit and potassium results: No results found for this basename: HCT,HEMATOCRIT,K,POTASSI UM Relevant Problems ANESTHESIA (+) TONYA (obstructive sleep apnea) CARDIO (+) A-fib (HCC) (+) Hypertension associated with type 2 diabetes mellitus (HCC) ENDO (+) Type 2 diabetes mellitus with neurologic complication, with long-term current use of insulin (HCC) NEURO-PSYCH (+) History of colonic polyps PULMONARY (+) TONYA (obstructive sleep apnea) I - PHYSICAL EVALUATION AIRWAY Patient intubated: No. Tracheostomy tube not present Mallampati: II. TM distance: >3 FB. Neck ROM: full ROM without neurological symptoms. Mouth opening: adequate. Short neck: no. Thick neck: no DENTAL Dental findings: missing tooth/teeth. Dentures, lower: partial. Additional exam findings: yes. CARDIOVASCULAR Rhythm: regular Rate: normal PULMONARY Breath sounds clear to auscultation. ABDOMINAL Obese: obesity present. II - ANESTHESIA PLAN ASA Score: 3 Anesthetic Plan: MAC The patient is not a current smoker. NPO Status: adequate Monitoring plan: standard ASA. Postoperative analgesic plan: multimodal analgesia. Informed Consent Anesthetic risks, benefits, alternatives, personnel and consent discussed: yes. Patient / Responsible Libertarian agrees to proceed: yes Patient / Surrogate agrees to blood products: blood products not planned DNR status not reviewed with patient and/or family prior to surgery. Significant changes in the patient condition since the History and Physical, not otherwise documented in primary service progress note: no. Potential Anesthesia issues that may suggest increased risk of complications or contraindication to planned procedure: none. Vitals Value Taken Time BP 141/80 01/03/22 0714 Pulse Resp 18 01/03/22 0714 Temp 36.1 ?C (97 ?F) 01/03/22 0714 SpO2 94 % 01/03/22 0714 Outpatient Medications as of 01/03/2022 Medication Sig - rosuvastatin (CRESTOR) 10 mg tablet Take 10 mg by mouth once daily. - allopurinol (ZYLOPRIM) 100 mg tablet Take 100 mg by mouth once daily. - amLODIPine (NORVASC) 10 mg tablet Take 10 mg by mouth once daily. - apixaban (ELIQUIS) 5 mg tab(s) - carvedilol (COREG) 25 mg tablet - Cinnamon Bark (CINNAMON) 500 mg cap - empagliflozin (JARDIANCE) 25 mg tablet - insulin detemir (LEVEMIR FLEXTOUCH U-100 INSULN SUBCUTANEOUS) - icosapent ethyl (VASCEPA) 1 gram capsule Take 2 g by mouth twice daily with meals. - sodium sulfate-potassium sulfate-magnesium sulfate (SUPREP BOWEL PREP KIT) 17.5-3.13-1.6 gram oral liquid Take according to instructions given with bowel prep kit - metFORMIN 500 mg tablet Take 1,000 mg by mouth twice daily with meals. - icosapent ethyl (VASCEPA) 1 gram capsule (Patient not taking: Reported on 12/20/2021 ) Facility-Administered Medications as of 01/03/2022 Medication Dose Route Frequency - lactated ringers iv infusion 30 mL/hr INTRAVENOUS CONTINUOUS I have interviewed and examined the patient. I have reviewed the medical record and/or the pre-anesthesia evaluation, pertinent labs, and test results. This contains updated information obtained within 48 hours of Surgery/Procedure. SIGNATURE: Nichole Humphries MD PATIENT NAME: Sohail Thompson DATE: January 03, 2022 TIME: 7:30 AM CSN: [id number] Normal [facility] COLONOSCOPY SCREENINGon 12-11 [facility] Colonoscopyon 01-03-2022 Colonoscopy [facility] Gastrointestinal Endoscopy Patient Name: Sohail Thompson Procedure Date: 01/03/2022 8:01 AM Date of : 1965 Admit Type: Outpatient Age: 56 Room: [facility] Gender: Male Note Status: Finalized Attending MD: Anjel Avilez MD Procedure: Colonoscopy Indications: High risk colon cancer surveillance: Personal history of colonic polyps Providers: Anjel Avilez MD Patient Profile: This is a 56 year old male. Refer to note in patient chart for documentation of history and physical. Last Colonoscopy: 3 years ago. Referring Physician: Lynda Venegas (pa) (Referring MD) Medicines: Monitored Anesthesia Care Complications: No immediate complications. Requesting Provider: Procedure: Pre-Anesthesia Assessment: - Prior to the procedure, a History and Physical was performed, and patient medications and allergies were reviewed. The patient is competent. The risks and benefits of the procedure and the sedation options and risks were discussed with the patient. All questions were answered and informed consent was obtained. Patient identification and proposed procedure were verified by the physician, the nurse and the supervisor tumblers in the procedure room. Respiratory Examination: clear to auscultation. CV Examination: normal. Prophylactic Antibiotics: The patient does not require prophylactic antibiotics. Prior Anticoagulants: The patient has taken Eliquis (apixaban), last dose was day of procedure. ASA Grade Assessment: III - A patient with severe systemic disease. After reviewing the risks and benefits, the patient was deemed in satisfactory condition to undergo the procedure. The anesthesia plan was to use monitored anesthesia care (MAC). Immediately prior to administration of medications, the patient was re-assessed for adequacy to receive sedatives. The heart rate, respiratory rate, oxygen saturations, blood pressure, adequacy of pulmonary ventilation, and response to care were monitored throughout the procedure. The physical status of the patient was re-assessed after the procedure. After I obtained informed consent, the scope was passed under direct vision. Throughout the procedure, the patient's blood pressure, pulse, and oxygen saturations were monitored continuously. The Colonoscope was introduced through the anus and advanced to the terminal ileum, with identification of the appendiceal orifice and IC valve. The terminal ileum, ileocecal valve, appendiceal orifice, and rectum were photographed. The colonoscopy was performed without difficulty. The patient tolerated the procedure well. The quality of the bowel preparation was excellent. Scope Withdrawal Time: 0 hours 10 minutes 6 seconds Moderate Sedation: MAC anesthesia was administered by the anesthesia team. Total Procedure Duration: 0 hours 14 minutes 35 seconds Findings: The perianal and digital rectal examinations were normal. The entire examined colon appeared normal on direct and retroflexion views. Impression: - The entire examined colon is normal on direct and retroflexion views. - No specimens collected. Recommendation: - Discharge patient to home. - Resume previous diet. - Continue present medications. - Repeat colonoscopy in 10 years for screening purposes. - Patient has a contact number available for emergencies. The signs and symptoms of potential delayed complications were discussed with the patient. Return to normal activities tomorrow. Written discharge instructions were provided to the patient. - Resume anticoagulant at prior dose. Procedure Code(s): --- Professional --- 64993, Colonoscopy, flexible; diagnostic, including collection of specimen(s) by brushing or washing, when performed (separate procedure) CPT copyright 2019 [employer]. All rights reserved. The codes documented in this report are preliminary and upon medical records coder review may be revised to meet current compliance requirements. Attending Participation: I personally performed the entire procedure. Scope In: 8:15:32 AM Scope Out: 8:30:07 AM MD Anjel Benoit MD 01/03/2022 8:34:50 AM This report has been signed electronically by Anjel Avilez MD Number of Addenda: 0 Note Initiated On: 01/03/2022 8:01 AM Estimated Blood Loss: Estimated blood loss: none. Normal [facility] GLUCOSE, BLOOD (POC)on 01-03 Glucose [Mass/Vol] 169 mg/dL Abnormal 74 - 99 mg/dL [facility] Glucose [Mass/Vol] 189 mg/dL Abnormal 74 - 99 mg/dL [facility] HISTORY PHYSICALon 2 HISTORY PHYSICAL HNO ID: [id number] Author: Anjel Avilez MD Service: General Surgery Author Type: Physician Type: HANDP Filed: 01/03/2022 7:19 AM Note Text: HISTORY AND PHYSICAL ? Sohail Thompson 1965 ? REFERRING PHYSICIAN: Self ? CHIEF COMPLAINT: Consult (Colonoscopy) ? HPI: The patient is a 55 year [...] this well. Denies history of kidney issues. ? Patient's past medical history is significant for hypertension, type II diabetes mellitus, obesity, atrial fibrillation. Patient follows with Dr. Auguste in cardiology. ? PAST MEDICAL HISTORY PAST MEDICAL HISTORY Diagnosis Date - Hypertension ? - Type II or unspecified type diabetes mellitus without mention of complication, not stated as uncontrolled ? ? ? PAST SURGICAL HISTORY PAST SURGICAL HISTORY Procedure Laterality Date - PAST SURGICAL HISTORY OF ? 2006 ? Removal of infectious mass Rt groin ? ? ? CURRENT MEDICATIONS Current Outpatient Medications Medication Sig - amLODIPine (NORVASC) 10 mg tablet Take 10 mg by mouth once daily. - apixaban (ELIQUIS) 5 mg tab(s) ? - carvedilol (COREG) 25 mg tablet ? - Cinnamon Bark (CINNAMON) 500 mg cap ? - empagliflozin (JARDIANCE) 25 mg tablet ? - icosapent ethyl (VASCEPA) 1 gram capsule ? - insulin detemir (LEVEMIR FLEXTOUCH U-100 INSULN SUBCUTANEOUS) ? - icosapent ethyl (VASCEPA) 1 gram capsule Take 2 g by mouth twice daily with meals. - metFORMIN 500 mg tablet Take 1,000 mg by mouth twice daily with meals. - lisinopril 20 mg tablet Take 20 mg by mouth once daily. - Rkade-2-HDR-EPA-Fish Oil 1,200 (144-216) mg cap Take by mouth twice daily. - Multivitamin capsule Take 1 capsule by mouth once daily. ? No current facility-administered medications for this visit. ? ? ALLERGIES: Patient has no known allergies. ? PERSONAL HISTORY: SOCIAL HISTORY Social History ? Tobacco Use - Smoking status: Never Smoker - Smokeless tobacco: Not on file Substance Use Topics - Alcohol use: Not on file - Drug use: Not on file ? FAMILY HISTORY: FAMILY HISTORY FAMILY HISTORY Problem Relation Age of Onset - Diabetes Father ? - Heart Father ? - Diabetes Paternal Grandfather ? ? ? REVIEW OF SYMPTOMS: The review of systems data was entered by the nurse and reviewed by me ? Nursing Notes: Stephanie Leez 08/30/2021 8:40 AM Signed REVIEW OF SYSTEMS: [...] and denies hormonal problems. Hematologic: The patient leatha (more content not included)... Normal [facility] SURGICAL PATHOLOGYon 022 CASE REPORT Normal [facility] Comment on above: Order Comment: Speci men Type: TISSUE SPECIMEN Ordering Facility: [facility] Address: [address] [place] [address] Result Comment: Surg ical Pathology Report Case: [id number] Authorizing Provider: Anjel Avilez MD Collected: 01/03/2022 08:22 AM Ordering Location: [facility] Endoscopy Received: 01/03/2022 10:13 AM Pathologist: Juan Dickey MD Specimen: TERMINAL ILEUM BIOPSY Performed By: #### S #### [facility] CLIA [id number] [address] [place] [address] OF [facility] FINAL DIAGNOSIS Normal [facility] Comment on above: Order Comment: Speci men Type: TISSUE SPECIMEN Ordering Facility: [facility] Address: [address] [place] [id number] Result Comment: Term inal ileum, biopsy: - Superficial fragments of small intestinal mucosa with no significant pathologic abnormality. Performed By: #### S #### [facility] CLIA [id number] [address] [place] [address] OF [facility] FINAL PERFORMING LAB Normal [facility] Comment on above: Order Comment: Speci men Type: TISSUE SPECIMEN Ordering Facility: [facility] Address: [address] [place] [address] Result Comment: Diag nostic interpretation performed at [facility], [address] [place] [address] CLIA# [id number] Elevated Motorman: Andrew Bush M.D. Performed By: #### S #### [facility] CLIA [id number] [address] [place] [address] GROSS DESCRIPTION [facility] Comment on above: Order Comment: Speci men Type: TISSUE SPECIMEN Ordering Facility: [facility] Address: [address] [place] [address] Result Comment: A. T ERMINAL ILEUM BIOPSY. Received in formalin is one piece of knott, soft tissue measuring 0.5 x 0.2 x 0.2 cm. Totally submitted in one cassette. [place] [address] TTN 01/03/2022 5:11 PM Performed By: #### S #### [facility] CLIA [id number] [address] [place] [address] OF [facility] Absolute lymphocyte counton 10-08-2021 Lymphocytes Auto (Unsp spec) [#/Vol] 2.71 10*3/uL 0.83-4.51 [facility] Work Phone: Basophil percentageon 2021 Basophils/100 WBC (Bld) 0.6 % 0-1 [facility] Work Phone: Bilirubin [Mass/Vol] 0.50 mg/dL 0.20-1.00 [facility] Work Phone: Comment on above: For patients on eltr ombopag therapy, use of Dimension [place] TBIL is not recommended. Chloride [Moles/Vol] 106 mmol/L 98-107 [facility]: Cholesterol [Mass/Vol] 213 mg/dL <200 [facility] Work Phone: Comment on above: <200 mg/dL Desirable 200-240 mg/dL Borderline >240 mg/dL High Risk Eosinophils/100 WBC (Bld) 2.4 % 0-5 [facility] Work Phone: Glucose [Mass/Vol] 117 mg/dL 74-106 [facility] Work Phone: Comment on above: Fasting Glucose resu lt from 100 to 125 mg/dL suggests IMPAIRED HOMEOSTASIS per A.D.A. criteria. Neutrophils (Bld) [#/Vol] 3.9 10*3/uL 2.0-7.7 [facility] Work Phone: Neutrophils/100 WBC (Bld) 50.0 % 47-70 [facility] Work Phone: [phone] Potassium [Moles/Vol] 4.1 mmol/L 3.5-5.1 [facility]: Protein [Mass/Vol] 7.7 g/dL 6.4-8.2 [facility] Work Phone: Sodium [Moles/Vol] 135 mmol/L 136-145 [facility] Work Phone: Triglyceride [Mass/Vol] 324 mg/dL [facility] Work Phone: Comment on above: The drugs N-Acetylcy steine and Metamizole may falsely depress this assay.Serum Triglycerides Reference Interval Normal <150 mg/dL Borderline high 150 - 199 mg/dL High 200 - 499 mg/dL Very High > or = 500 mg/dL WBC (Bld) [#/Vol] 7.8 10*3/uL 4.4-11.0 [facility] Work Phone: Blood erythrocytes count (nu mber/volume)on 10-08-2021 RBC (Bld) [#/Vol] 6.07 10*6/uL 4.6-6.2 [facility] Work Phone: Blood hemoglobin measurement (mass/volume)on 10-08-2021 Hemoglobin (Bld) [Mass/Vol] 17.4 g/dL 13.0-16.5 [facility] Work Phone: Blood lymphocytes/100 leukoc yteson 10-08-2021 Lymphocytes/100 WBC (Bld) 34.6 % 19-41 [facility] Work Phone: Blood monocytes/100 leukocyt eson 10-08-2021 Monocytes/100 WBC (Bld) 11.6 % 0-10 [facility] Work Phone: Blood platelet mean volumeon 10-08-2021 Platelet mean volume (Bld) [Entitic vol] 9.3 fL 6.2-12.0 [facility] Work Phone: Determination of erythrocyte mean corpuscular volume (MCV)on 10-08-2021 MCV (RBC) [Entitic vol] 85.2 fL 80-94 [facility] Work Phone: Hematocrit Auto (Bld) [Volum e fraction]on 10-08-2021 Hematocrit (Bld) [Volume fraction] 51.7 % 40-54 [facility] Work Phone: Iron measurement (mass/mass) on 10-08-2021 Iron (Unsp spec) [Mass/Mass] 58 ug/dL 65-175 [facility] Work Phone: Laboratory - Chemistry and C hemistry - challengeon 10-08-2021 ALP [Catalytic activity/Vol] 51 U/L 45-117 [facility] Work Phone: ALT [Catalytic activity/Vol] 24 U/L 16-61 [facility] Work Phone: CO2 [Moles/Vol] 23.0 mmol/L 21.0-32.0 [facility] Work Phone: Globulin (S) [Mass/Vol] 3.8 g/dL 2.2-4.2 [facility] Work Phone: Transferrin [Mass/Vol] 275 mg/dL [facility] Work Phone: Comment on above: Performed at: [address] [id number] Director: Joshua Galvan PhD, Phone: [phone] Urea nitrogen/Creatinine [Mass ratio] 12.9 mg/mg 10-20 [facility] Work Phone: Laboratory - Hematology and Cell countson 10-08-2021 Erythrocyte distribution width (RBC) [Entitic vol] 42.6 fL 35.1-43.9 [facility] Work Phone: Erythrocyte distribution width (RBC) [Ratio] 14.0 % 11.6-14.6 [facility] Work Phone: Immature granulocytes/100 WBC (Bld) 0.800 % 0.0-0.9 [facility] Work Phone: Comment on above: IG% - Immature Granu locytes (promyelocytes, myelocytes and metamyelocytes) > 1% indicates that a LEFT SHIFT is Present. MCH (RBC) [Entitic mass] 28.7 pg 27.0-32.0 [facility] Work Phone: Nucleated RBC/100 WBC (Bld) [Ratio] 0 % 0-5 [facility] Work Phone: MCHC Auto (RBC) [Mass/Vol]on 10-08-2021 MCHC (RBC) [Mass/Vol] 33.7 g/dL 32-36 [facility] Work Phone: No Panel Informationon 10-08 Estimated GFR (MDRD) Amer 78 mL/min >60 [facility] Work Phone: Comment on above: GFR Calc Estimated GFR (MDRD) Non-Af Amer 65 mL/min >60 [facility] Work Phone: Comment on above: Non- GFR Calc Total Iron Binding Capacity 394 ug/dL 250-450 [facility] Work Phone: Platelets bldon 10-08-2021 Platelets (Bld) [#/Vol] 250 10*3/uL 150-450 [facility] Work Phone: Serum or plasma albumin colton urement (mass/volume)on 10-08-2021 Albumin [Mass/Vol] 3.9 g/dL 3.2-5.0 [facility] Work Phone: Serum or plasma albumin/glob ulin mass ratioon 10-08-2021 Albumin/Globulin [Mass ratio] 1.0 {ratio} 0.9-2.4 [facility] Work Phone: Serum or plasma calcium colton urement (mass/volume)on 10-08-2021 Calcium [Mass/Vol] 9.1 mg/dL 8.5-10.1 [facility] Work Phone: Serum or plasma cholesterol in HDL measurement (mass/volume)on 10-08-2021 Cholesterol in HDL [Mass/Vol] 38 mg/dL [facility] Work Phone: Comment on above: The drugs N-Acetylcy steine and Metamizole may falsely depress this assay. Reference Range HDL <40 mg/dL Low HDL Cholesterol HDL >or= 60 mg/dL High HDL Cholesterol Serum or plasma cholesterol in VLDL measurement (mass/volume)on 10-08-2021 Cholesterol in VLDL [Mass/Vol] 65 mg/dL 5-40 [facility] Work Phone: Serum or plasma creatinine m easurement (mass/volume)on 10-08-2021 Creatinine [Mass/Vol] 1.24 mg/dL 0.70-1.30 [facility] Work Phone: Comment on above: The validity of the calculated GFR & GFRAA in patients over 70 years has not been determined. Clinical correlation is essential. Serum or plasma ferritin gino surement (mass/volume)on 10-08-2021 Ferritin [Mass/Vol] 212 ng/mL 26-388 [facility] Work Phone: Serum or plasma low density lipoprotein (LDL) cholesterol measurement (mass/volume)on 10-08-2021 Cholesterol in LDL [Mass/Vol] 110 mg/dL 0-130 [facility] Work Phone: Serum or plasma urea nitroge n measurement (mass/volume)on 10-08-2021 Urea nitrogen [Mass/Vol] 16 mg/dL 7-18 [facility] Work Phone: Serum or plasma uric acid me asurement (mass/volume)on 10-08-2021 Urate [Mass/Vol] 8.4 mg/dL 3.5-7.2 [facility] Work Phone: Comment on above: The drugs N-Acetylcy steine and Metamizole may falsely depress this assay. Thin prep Papanicolaou smear with manual screeningon 10-08-2021 Thin prep Papanicolaou smear with manual screening 16 U/L 15-37 [facility] Work Phone: Thin prep Papanicolaou smear with manual screening 6 5-15 [facility] Work Phone: Whole blood hemoglobin A1c/t otal hemoglobin ratio (mass fraction)on 10-08-2021 HbA1c (Bld) [Mass fraction] 7.0 % 3.8-5.6 [facility] Work Phone: Comment on above: Normal < 5.7 % Predi abetic 5.7 - 6.4 % Diabetic >or= 6.5 % Please note range changes. .Auto Diffon 05-09-2018 Ammonia mass conc (P) 1.10 10 3/mcL High 0.15-1.00 [facility] ([place]) Comment on above: Performed By: #### C BC, ADIFF, ANEU, APTT, PRO ####[address] [place] [address]#### GFR, BMP ####[address] [address] Basophils Auto #/vol (Bld) 0.10 10 3/mcL Normal 0.00-0.19 [facility] ([place]) Comment on above: Performed By: #### C BC, ADIFF, ANEU, APTT, PRO ####[place] [address]#### GFR, BMP ####[address] [address] Basophils/100 WBC Auto (Bld) 0.5 % Normal 0.0-2.5 [facility] ([place]) Comment on above: Performed By: #### C BC, ADIFF, ANEU, APTT, PRO ####[place] [address]#### GFR, BMP ####[address] [address] Eosinophils Auto #/vol (Bld) 0.30 10 3/mcL Normal 0.00-0.40 [facility] ([place]) Comment on above: Performed By: #### C BC, ADIFF, ANEU, APTT, PRO ####[place] [address]#### GFR, BMP ####[address] [address] Eosinophils/100 WBC Auto (Bld) 3.4 % Normal 0.0-7.0 [facility] ([place]) Comment on above: Performed By: #### C BC, ADIFF, ANEU, APTT, PRO ####[place] [address]#### GFR, BMP ####[address] [address] Lymphocytes Auto #/vol (Bld) 2.40 10 3/mcL Normal 0.77-3.85 [facility] ([place]) Comment on above: Performed By: #### C BC, ADIFF, ANEU, APTT, PRO ####[place] [address]#### GFR, BMP ####[address] [address] Lymphocytes/100 WBC Auto (Bld) 23.5 % Normal 10.0-50.0 [facility] ([place]) Comment on above: Performed By: #### C BC, ADIFF, ANEU, APTT, PRO ####[facility] [place], [place] [address]#### GFR, BMP ####[address] [address] Monocytes/100 WBC Auto (Bld) 10.9 % Normal 1.7-13.0 [facility] ([place]) Comment on above: Performed By: #### C BC, ADIFF, ANEU, APTT, PRO ####[address] [place] [address]#### GFR, BMP ####[address] [address] Neutrophils/100 WBC Auto (Bld) 61.7 % Normal 37.0-80.0 [facility] ([place]) Comment on above: Performed By: #### C BC, ADIFF, ANEU, APTT, PRO ####[place] [address]#### GFR, BMP ####[address] [address] .GFRon 05-09-2018 GFR 113 ml/min/1.73sqm Normal [facility] ([place]) Comment on above: Result Comment: GFR Population mean for , Non- Americans Ages 20-29 = 116 mL/min/1.73 sq.m. Ages 30-39 = 107 mL/min/1.73 sq.m. Ages 40-49 = 99 mL/min/1.73 sq.m. Ages 50-59 = 93 mL/min/1.73 sq.m. Ages 60-69 = 85 mL/min/1.73 sq.m. Ages 70+ = 75 mL/min/1.73 sq.m.Chronic Kidney Disease: Less than 60 mL/min/1.73 square metersEnd Stage Renal Disease: Less than 15 mL/min/1.73 square meters Performed By: #### C BC, ADIFF, ANEU, APTT, PRO ####[place] [address] [place], [place] [address]#### GFR, BMP ####[address] [address] GFR Non- 93 ml/min/1.73sqm Normal [facility] ([place]) Comment on above: Result Comment: GFR Population mean for , Non- Americans Ages 20-29 = 116 mL/min/1.73 sq.m. Ages 30-39 = 107 mL/min/1.73 sq.m. Ages 40-49 = 99 mL/min/1.73 sq.m. Ages 50-59 = 93 mL/min/1.73 sq.m. Ages 60-69 = 85 mL/min/1.73 sq.m. Ages 70+ = 75 mL/min/1.73 sq.m.Chronic Kidney Disease: Less than 60 mL/min/1.73 square metersEnd Stage Renal Disease: Less than 15 mL/min/1.73 square meters Performed By: #### C BC, ADIFF, ANEU, APTT, PRO ####[address] [place] [address]#### GFR, BMP ####[place] [address] .NEUABSon 05-09-2018 Neutrophil, Absolute 6.30 10 3/mcL High 2.85-6.16 [facility] ([place]) Comment on above: Performed By: #### C BC, ADIFF, ANEU, APTT, PRO ####[address] [place] [address]#### GFR, BMP ####[place] [address] BMPon 05-09-2018 Calcium mass conc 7.6 mg/dL Low 8.4-10.2 [facility] ([place]) Comment on above: Performed By: #### C BC, ADIFF, ANEU, APTT, PRO ####[address] [place] [address]#### GFR, BMP ####[place] [address] Chloride molar conc 105 mmol/L Normal 98-107 [facility] ([place]) Comment on above: Performed By: #### C BC, ADIFF, ANEU, APTT, PRO ####[place] [address]#### GFR, BMP ####[address] [address] CO2 molar conc 26 mmol/L Normal 22-29 [facility] ([place]) Comment on above: Performed By: #### C BC, ADIFF, ANEU, APTT, PRO ####[place] [address]#### GFR, BMP ####[place] [address] Creatinine mass conc 0.87 mg/dL Normal 0.70-1.30 Pending sale to [facility] ([place]) Comment on above: Performed By: #### C BC, ADIFF, ANEU, APTT, PRO ####[place] [address]#### GFR, BMP ####[place] [address] Electrolyte Balance 8.0 mEq/L Normal [facility] ([place]) Comment on above: Performed By: #### C BC, ADIFF, ANEU, APTT, PRO ####[place] [address]#### GFR, BMP ####[place] [address] Glucose mass conc 149 mg/dL High 70-105 [facility] ([place]) Comment on above: Performed By: #### C BC, ADIFF, ANEU, APTT, PRO ####[place] [address]#### GFR, BMP ####[place] [address] Potassium molar conc 4.0 mmol/L Normal 3.5-5.1 [facility] to [facility] ([place]) Comment on above: Performed By: #### C BC, ADIFF, ANEU, APTT, PRO ####[place] [address]#### GFR, BMP ####[place] [address] Sodium molar conc 139 mmol/L Normal 136-145 [facility] ([place]) Comment on above: Performed By: #### C BC, ADIFF, ANEU, APTT, PRO ####[address] [address]#### GFR, BMP ####[address] [address] Urea nitrogen mass conc 14 mg/dL Normal 7-18 [facility] ([place]) Comment on above: Performed By: #### C BC, ADIFF, ANEU, APTT, PRO ####[address] [address]#### GFR, BMP ####[address] [address] Urea nitrogen/Creatinine mass ratio 16 ratio Normal 7-27 [facility] ([place]) Comment on above: Performed By: #### C BC, ADIFF, ANEU, APTT, PRO ####[place] [address]#### GFR, BMP ####[address] [address] CBCon 05-09-2018 Erythrocyte distribution width Auto Ratio (RBC) 14.3 % Normal 11.5-14.5 [facility] ([place]) Comment on above: Performed By: #### C BC, ADIFF, ANEU, APTT, PRO ####[place] [address]#### GFR, BMP ####[address] [address] Hematocrit Auto Volume Fraction (Bld) 35.0 % Low 42.0-52.0 [facility] ([place]) Comment on above: Performed By: #### C BC, ADIFF, ANEU, APTT, PRO ####[place] [address]#### GFR, BMP ####[address] [address] Hemoglobin mass conc (Bld) 11.7 G/dL Low 14.0-18.0 [facility] ([place]) Comment on above: Performed By: #### C BC, ADIFF, ANEU, APTT, PRO ####[place] [address]#### GFR, BMP ####[place] [address] MCH Auto Entitic mass (RBC) 29.2 pg Normal 27.0-31.2 [facility] ([place]) Comment on above: Performed By: #### C BC, ADIFF, ANEU, APTT, PRO ####[place] [address]#### GFR, BMP ####[place] [address] MCHC Auto mass conc (RBC) 33.4 G/dL Normal 31.8-35.4 [facility] ([place]) Comment on above: Performed By: #### C BC, ADIFF, ANEU, APTT, PRO ####[place] [address]#### GFR, BMP ####[place] [address] MCV Auto Entitic volume (RBC) 87.3 fL Normal 80.0-94.0 [facility] ([place]) Comment on above: Performed By: #### C BC, ADIFF, ANEU, APTT, PRO ####[place] [address]#### GFR, BMP ####[place] [address] Platelet mean volume Auto Entitic volume (Bld) 7.9 fL Normal 7.4-10.4 [facility] ([place]) Comment on above: Performed By: #### C BC, ADIFF, ANEU, APTT, PRO ####[place] [address]#### GFR, BMP ####[place] [address] Platelets Auto #/vol (Bld) 220 10 3/mcL Normal 130-400 [facility] ([place]) Comment on above: Performed By: #### C BC, ADIFF, ANEU, APTT, PRO ####[place] [address]#### GFR, BMP ####[place] [address] RBC Auto #/vol (Bld) 4.01 10 6/mcL Low 4.04-6.13 [facility] ([place]) Comment on above: Performed By: #### C BC, ADIFF, ANEU, APTT, PRO ####[place] [address]#### GFR, BMP ####[place] [address] WBC Auto #/vol (Bld) 10.20 10 3/mcL Normal 4.60-10.80 [facility] ([place]) Comment on above: Performed By: #### C BC, ADIFF, ANEU, APTT, PRO ####[place] [address]#### GFR, BMP ####[place] [address] .Auto Diffon 05-08-2018 Ammonia mass conc (P) 1.00 10 3/mcL Normal 0.15-1.00 [facility] ([place]) Comment on above: Performed By: #### C BC, ADIFF, ANEU, APTT, PRO ####[place] [address]#### GFR, BMP ####[place] [address] Basophils Auto #/vol (Bld) 0.00 10 3/mcL Normal 0.00-0.19 [facility] ([place]) Comment on above: Performed By: #### C BC, ADIFF, ANEU, APTT, PRO ####[place] [address]#### GFR, BMP ####[place] [address] Basophils/100 WBC Auto (Bld) 0.5 % Normal 0.0-2.5 [facility] ([place]) Comment on above: Performed By: #### C BC, ADIFF, ANEU, APTT, PRO ####[place] [address]#### GFR, BMP ####[address] [address] Eosinophils Auto #/vol (Bld) 0.30 10 3/mcL Normal 0.00-0.40 [facility] ([place]) Comment on above: Performed By: #### C BC, ADIFF, ANEU, APTT, PRO ####[place] [address]#### GFR, BMP ####[address] [address] Eosinophils/100 WBC Auto (Bld) 2.7 % Normal 0.0-7.0 [facility] ([place]) Comment on above: Performed By: #### C BC, ADIFF, ANEU, APTT, PRO ####[place] [address]#### GFR, BMP ####[address] [address] Lymphocytes Auto #/vol (Bld) 2.30 10 3/mcL Normal 0.77-3.85 [facility] ([place]) Comment on above: Performed By: #### C BC, ADIFF, ANEU, APTT, PRO ####[place] [address]#### GFR, BMP ####[address] [address] Lymphocytes/100 WBC Auto (Bld) 23.2 % Normal 10.0-50.0 [facility] ([place]) Comment on above: Performed By: #### C BC, ADIFF, ANEU, APTT, PRO ####[place] [address]#### GFR, BMP ####[address] [address] Monocytes/100 WBC Auto (Bld) 9.7 % Normal 1.7-13.0 [facility] ([place]) Comment on above: Performed By: #### C BC, ADIFF, ANEU, APTT, PRO ####[address] [place], [place] [address]#### GFR, BMP ####[address] [address] Neutrophils/100 WBC Auto (Bld) 63.9 % Normal 37.0-80.0 [facility] ([place]) Comment on above: Performed By: #### C BC, ADIFF, ANEU, APTT, PRO ####[address] [place], [place] [address]#### GFR, BMP ####[address] [address] .GFRon 05-08-2018 GFR Non- 72 ml/min/1.73sqm Normal [facility] ([place]) Comment on above: Result Comment: GFR Population mean for , Non- Americans Ages 20-29 = 116 mL/min/1.73 sq.m. Ages 30-39 = 107 mL/min/1.73 sq.m. Ages 40-49 = 99 mL/min/1.73 sq.m. Ages 50-59 = 93 mL/min/1.73 sq.m. Ages 60-69 = 85 mL/min/1.73 sq.m. Ages 70+ = 75 mL/min/1.73 sq.m.Chronic Kidney Disease: Less than 60 mL/min/1.73 square metersEnd Stage Renal Disease: Less than 15 mL/min/1.73 square meters Performed By: #### C BC, ADIFF, ANEU, APTT, PRO ####[address] [place], [place] [address]#### GFR, BMP ####[place] [address] [place] [address] GFR 87 ml/min/1.73sqm Normal [facility] ([place]) Comment on above: Result Comment: GFR Population mean for , Non- Americans Ages 20-29 = 116 mL/min/1.73 sq.m. Ages 30-39 = 107 mL/min/1.73 sq.m. Ages 40-49 = 99 mL/min/1.73 sq.m. Ages 50-59 = 93 mL/min/1.73 sq.m. Ages 60-69 = 85 mL/min/1.73 sq.m. Ages 70+ = 75 mL/min/1.73 sq.m.Chronic Kidney Disease: Less than 60 mL/min/1.73 square metersEnd Stage Renal Disease: Less than 15 mL/min/1.73 square meters Performed By: #### C BC, ADIFF, ANEU, APTT, PRO ####[place] [place] [address]#### GFR, BMP ####[place] [address] .NEUABSon 05-08-2018 Neutrophil, Absolute 6.50 10 3/mcL High 2.85-6.16 [facility] ([place]) Comment on above: Performed By: #### C BC, ADIFF, ANEU, APTT, PRO ####[place] [place] [address]#### GFR, BMP ####[place] [address] BMPon 05-08-2018 Calcium mass conc 7.9 mg/dL Low 8.4-10.2 [facility] ([place]) Comment on above: Performed By: #### C BC, ADIFF, ANEU, APTT, PRO ####[place] [address]#### GFR, BMP ####[place] [address] Chloride molar conc 106 mmol/L Normal 98-107 [facility] ([place]) Comment on above: Performed By: #### C BC, ADIFF, ANEU, APTT, PRO ####[place] [place] [address]#### GFR, BMP ####[place] [address] CO2 molar conc 24 mmol/L Normal 22-29 [facility] ([place]) Comment on above: Performed By: #### C BC, ADIFF, ANEU, APTT, PRO ####[facility] [place] [address]#### GFR, BMP ####[place] [address] Creatinine mass conc 1.09 mg/dL Normal 0.70-1.30 [facility] to [facility] ([place]) Comment on above: Performed By: #### C BC, ADIFF, ANEU, APTT, PRO ####[place] [address]#### GFR, BMP ####[place] [address] Electrolyte Balance 11.0 mEq/L Normal [facility] ([place]) Comment on above: Performed By: #### C BC, ADIFF, ANEU, APTT, PRO ####[place] [address]#### GFR, BMP ####[place] [address] Glucose mass conc 202 mg/dL High 70-105 [facility] ([place]) Comment on above: Performed By: #### C BC, ADIFF, ANEU, APTT, PRO ####[place] [address]#### GFR, BMP ####[place] [address] Potassium molar conc 4.4 mmol/L Normal 3.5-5.1 [facility] to [facility] ([place]) Comment on above: Performed By: #### C BC, ADIFF, ANEU, APTT, PRO ####[facility] [place] [address]#### GFR, BMP ####[place] [address] Sodium molar conc 141 mmol/L Normal 136-145 [facility] ([place]) Comment on above: Performed By: #### C BC, ADIFF, ANEU, APTT, PRO ####[facility] [place] [address]#### GFR, BMP ####[address] [address] Urea nitrogen mass conc 26 mg/dL High 7-18 [facility] ([place]) Comment on above: Performed By: #### C BC, ADIFF, ANEU, APTT, PRO ####[place] [id number]#### GFR, BMP ####[address] [address] Urea nitrogen/Creatinine mass ratio 24 ratio Normal 01-05 [facility] ([place]) Comment on above: Performed By: #### C BC, ADIFF, ANEU, APTT, PRO ####[place] [address]#### GFR, BMP ####[place] [address] CBCon 05-08-2018 Erythrocyte distribution width Auto Ratio (RBC) 14.1 % Normal 11.5-14.5 [facility] ([place]) Comment on above: Performed By: #### C BC, ADIFF, ANEU, APTT, PRO ####[place] [address]#### GFR, BMP ####[place] [address] Hematocrit Auto Volume Fraction (Bld) 39.9 % Low 42.0-52.0 [facility] ([place]) Comment on above: Performed By: #### C BC, ADIFF, ANEU, APTT, PRO ####[place] [address]#### GFR, BMP ####[place] [address] Hemoglobin mass conc (Bld) 13.3 G/dL Low 14.0-18.0 [facility] ([place]) Comment on above: Performed By: #### C BC, ADIFF, ANEU, APTT, PRO ####[place] [address]#### GFR, BMP ####[place] [address] MCH Auto Entitic mass (RBC) 29.0 pg Normal 27.0-31.2 [facility] ([place]) Comment on above: Performed By: #### C BC, ADIFF, ANEU, APTT, PRO ####[place] [address]#### GFR, BMP ####[place] [address] MCHC Auto mass conc (RBC) 33.2 G/dL Normal 31.8-35.4 [facility] ([place]) Comment on above: Performed By: #### C BC, ADIFF, ANEU, APTT, PRO ####[place] [address]#### GFR, BMP ####[place] [address] MCV Auto Entitic volume (RBC) 87.4 fL Normal 80.0-94.0 [facility] ([place]) Comment on above: Performed By: #### C BC, ADIFF, ANEU, APTT, PRO ####[place] [address]#### GFR, BMP ####[place] [address] Platelet mean volume Auto Entitic volume (Bld) 8.1 fL Normal 7.4-10.4 [facility] ([place]) Comment on above: Performed By: #### C BC, ADIFF, ANEU, APTT, PRO ####[place] [address]#### GFR, BMP ####[place] [address] Platelets Auto #/vol (Bld) 216 10 3/mcL Normal 130-400 [facility] ([place]) Comment on above: Performed By: #### C BC, ADIFF, ANEU, APTT, PRO ####[place] I[address]gia[address] [place] [address]#### GFR, BMP ####[place] [address] RBC Auto #/vol (Bld) 4.57 10 6/mcL Normal 4.04-6.13 [facility] ([place]) Comment on above: Performed By: #### C BC, ADIFF, ANEU, APTT, PRO ####[place] D[address] [place] [id number]#### GFR, BMP ####[address] [address] WBC Auto #/vol (Bld) 10.10 10 3/mcL Normal 4.60-10.80 [facility] ([place]) Comment on above: Performed By: #### C BC, ADIFF, ANEU, APTT, PRO ####[place] [place] [address]#### GFR, BMP ####[address] 05-08-2018 Hematocrit Auto Volume Fraction (Bld) 36.5 % Low 42.0-52.0 [facility] ([place]) Comment on above: Performed By: #### C BC, ADIFF, ANEU, APTT, PRO ####[place] [place] [address]#### GFR, BMP ####[place] [address] Hemoglobin mass conc (Bld) 12.2 G/dL Low 14.0-18.0 [facility] ([place]) Comment on above: Performed By: #### C BC, ADIFF, ANEU, APTT, PRO ####[place] [place] [address]#### GFR, BMP ####[place] [address] Hematocrit Auto Volume Fraction (Bld) 40.8 % Low 42.0-52.0 [facility] ([place]) Comment on above: Performed By: #### C BC, ADIFF, ANEU, APTT, PRO ####[place] I[address] [place] [address]#### GFR, BMP ####[place] [address] Hemoglobin mass conc (Bld) 13.5 G/dL Low 14.0-18.0 [facility] ([place]) Comment on above: Performed By: #### C BC, ADIFF, ANEU, APTT, PRO ####[place] [place] [address]#### GFR, BMP ####[place] [address] Hematocrit Auto Volume Fraction (Bld) 42.1 % Normal 42.0-52.0 [facility] ([place]) Comment on above: Performed By: #### C BC, ADIFF, ANEU, APTT, PRO ####[place] [address]#### GFR, BMP ####[place] [address] Hemoglobin mass conc (Bld) 14.1 G/dL Normal 14.0-18.0 [facility] ([place]) Comment on above: Performed By: #### C BC, ADIFF, ANEU, APTT, PRO ####[place] [address]#### GFR, BMP ####[place] [address] LACon 05-08-2018 Lactic Acid Lvl 1.3 mmol/L Normal 0.4-2.0 [facility] ([place]) Comment on above: Performed By: #### C BC, ADIFF, ANEU, APTT, PRO ####[place] [address]#### GFR, BMP ####[place] [address] MGon 05-08-2018 Magnesium mass conc 1.6 mg/dL Low 1.8-2.4 [facility] ([place]) Comment on above: Performed By: #### C BC, ADIFF, ANEU, APTT, PRO ####[place] [place] [address]#### GFR, BMP ####[place] [address] MRPCRon 05-08-2018 Protein mass conc . MICRO - MicrobiologyPROCEDURE: MRSA PCR [*1] Nares BODY SITE:COLLECTED DATE/TIME: 05/07/2018 14:29 EST RECEIVED DATE/TIME: 05/07/2018 21:12 ESTSTART DATE/TIME: 05/07/2018 21:12 EST FREE TEXT SOURCE:FINAL REPORTSFinal Report []Verified Date/Time/Personnel: 05/08/2018 11:34 ESTMRSA NEGATIVE.MRSA DNA not detected by Real-Time Polymerase ChainReaction (PCR). A negative result may be due tointermittent colonization. Colonization may varydepending on patient treatment, patient status orexposure to high risk environments.As with all PCR based in vitro tests, extremely lowlevels of target below the limit of detection of theassay may be detected, but results may not bereproducible.Performin Locations*1: This test was performed at: [address], [address] [place] [address] ([place]) Comment on above: Performed By: #### C BC, ADIFF, ANEU, APTT, PRO ####[place] [address]#### GFR, BMP ####[place] [address] .Auto Diffon 05-07-2018 Ammonia mass conc (P) 1.50 10 3/mcL High 0.15-1.00 [facility] ([place]) Comment on above: Performed By: #### C BC, ADIFF, ANEU, APTT, PRO ####[place] [address]#### GFR, BMP ####[place] [address] Basophils Auto #/vol (Bld) 0.10 10 3/mcL Normal 0.00-0.19 [facility] ([place]) Comment on above: Performed By: #### C BC, ADIFF, ANEU, APTT, PRO ####[place] [address]#### GFR, BMP ####[address] [address] Basophils/100 WBC Auto (Bld) 0.8 % Normal 0.0-2.5 [facility] ([place]) Comment on above: Performed By: #### C BC, ADIFF, ANEU, APTT, PRO ####[place] [address]#### GFR, BMP ####[address] [address] Eosinophils Auto #/vol (Bld) 0.30 10 3/mcL Normal 0.00-0.40 [facility] ([place]) Comment on above: Performed By: #### C BC, ADIFF, ANEU, APTT, PRO ####[place] [address]#### GFR, BMP ####[address] [address] Eosinophils/100 WBC Auto (Bld) 2.5 % Normal 0.0-7.0 [facility] ([place]) Comment on above: Performed By: #### C BC, ADIFF, ANEU, APTT, PRO ####[place] [address]#### GFR, BMP ####[address] [address] Lymphocytes Auto #/vol (Bld) 2.40 10 3/mcL Normal 0.77-3.85 [facility] ([place]) Comment on above: Performed By: #### C BC, ADIFF, ANEU, APTT, PRO ####[place] [address]#### GFR, BMP ####[address] [address] Lymphocytes/100 WBC Auto (Bld) 18.5 % Normal 10.0-50.0 [facility] ([place]) Comment on above: Performed By: #### C BC, ADIFF, ANEU, APTT, PRO ####[place]aymike [place]orthyLzvtgjto[address] [address]#### GFR, BMP ####[place] [address] [address] [place] [address] Monocytes/100 WBC Auto (Bld) 11.2 % Normal 1.7-13.0 [facility] ([place]) Comment on above: Performed By: #### C BC, ADIFF, ANEU, APTT, PRO ####Vijay [address] [place], [place] [address]#### GFR, BMP ####[address] [address] Neutrophils/100 WBC Auto (Bld) 67.0 % Normal 37.0-80.0 [facility] ([place]) Comment on above: Performed By: #### C BC, ADIFF, ANEU, APTT, PRO ####[place] [place] [address]#### GFR, BMP ####[address] [address] .GFRon 05-07-2018 GFR Non- 67 ml/min/1.73sqm Normal [facility] ([place]) Comment on above: Result Comment: GFR Population mean for , Non- Americans Ages 20-29 = 116 mL/min/1.73 sq.m. Ages 30-39 = 107 mL/min/1.73 sq.m. Ages 40-49 = 99 mL/min/1.73 sq.m. Ages 50-59 = 93 mL/min/1.73 sq.m. Ages 60-69 = 85 mL/min/1.73 sq.m. Ages 70+ = 75 mL/min/1.73 sq.m.Chronic Kidney Disease: Less than 60 mL/min/1.73 square metersEnd Stage Renal Disease: Less than 15 mL/min/1.73 square meters Performed By: #### C BC, ADIFF, ANEU, APTT, PRO ####[place] [address] [place] [id number]#### GFR, BMP ####[place] [address] [address] [place] [address] GFR 82 ml/min/1.73sqm Normal [facility] ([place]) Comment on above: Result Comment: GFR Population mean for , Non- Americans Ages 20-29 = 116 mL/min/1.73 sq.m. Ages 30-39 = 107 mL/min/1.73 sq.m. Ages 40-49 = 99 mL/min/1.73 sq.m. Ages 50-59 = 93 mL/min/1.73 sq.m. Ages 60-69 = 85 mL/min/1.73 sq.m. Ages 70+ = 75 mL/min/1.73 sq.m.Chronic Kidney Disease: Less than 60 mL/min/1.73 square metersEnd Stage Renal Disease: Less than 15 mL/min/1.73 square meters Performed By: #### C BC, ADIFF, ANEU, APTT, PRO ####[place] [address] [place] [address]#### GFR, BMP ####[place] [address] .NEUABSon 05-07-2018 Neutrophil, Absolute 8.80 10 3/mcL High 2.85-6.16 [facility] ([place]) Comment on above: Performed By: #### C BC, ADIFF, ANEU, APTT, PRO ####[place] [address]#### GFR, BMP ####[place] [address] ABO/Rh Retype Gelon 05-07-20 18 ABO/Rh Retype Gel Positive Invalid Interpretation Code [facility] ([place]) Comment on above: Order Comment: Order ed by Discern Performed By: #### C BC, ADIFF, ANEU, APTT, PRO ####[place] [address]#### GFR, BMP ####[place] [address] APTTon 05-07-2018 aPTT Coag time (Bld) 34.3 s Normal 24.4-35.6 Pending sale to [facility] ([place]) Comment on above: Result Comment: For Heparin anticoagulation therapy, the recommendedtherapeutic range is: 47.7-87.7 seconds (1.5 - 2.5 the normalplasma mean). Patients on heparin therapy may have an extreme result. Performed By: #### C BC, ADIFF, ANEU, APTT, PRO ####[place] [address]#### GFR, BMP ####[place] [address] aPTT Coag time (Bld) None Normal Pending [facility] to [facility] ([place]) Comment on above: Performed By: #### C BC, ADIFF, ANEU, APTT, PRO ####[place] [address]#### GFR, BMP ####[place] [address] BMPon 05-07-2018 Calcium mass conc 8.8 mg/dL Normal 8.4-10.2 [facility] ([place]) Comment on above: Performed By: #### C BC, ADIFF, ANEU, APTT, PRO ####[place] [address]#### GFR, BMP ####[place] [address] Chloride molar conc 101 mmol/L Normal 98-107 [facility] ([place]) Comment on above: Performed By: #### C BC, ADIFF, ANEU, APTT, PRO ####[place] [address]#### GFR, BMP ####[place] [address] CO2 molar conc 21 mmol/L Low 22-29 [facility] ([place]) Comment on above: Performed By: #### C BC, ADIFF, ANEU, APTT, PRO ####[place] [address]#### GFR, BMP ####[place] [address] Creatinine mass conc 1.15 mg/dL Normal 0.70-1.30 Pending [facility] to [facility] ([place]) Comment on above: Performed By: #### C BC, ADIFF, ANEU, APTT, PRO ####[facility] [place] [address]#### GFR, BMP ####[address] [address] Electrolyte Balance 14.0 mEq/L Normal [facility] ([place]) Comment on above: Performed By: #### C BC, ADIFF, ANEU, APTT, PRO ####[place] [address]#### GFR, BMP ####[address] [address] Glucose mass conc 259 mg/dL High 70-105 [facility] ([place]) Comment on above: Performed By: #### C BC, ADIFF, ANEU, APTT, PRO ####[place] [address]#### GFR, BMP ####[place] [address] Potassium molar conc 4.5 mmol/L Normal 3.5-5.1 [facility] to [facility] ([place]) Comment on above: Performed By: #### C BC, ADIFF, ANEU, APTT, PRO ####[place] [address]#### GFR, BMP ####[address] [address] Sodium molar conc 136 mmol/L Normal 136-145 [facility] ([place]) Comment on above: Performed By: #### C BC, ADIFF, ANEU, APTT, PRO ####[place] [id number]#### GFR, BMP ####[address] [address] Urea nitrogen mass conc 30 mg/dL High 7-18 [facility] ([place]) Comment on above: Performed By: #### C BC, ADIFF, ANEU, APTT, PRO ####[facility] [place], [place] [id number]#### GFR, BMP ####[place] [address] Urea nitrogen/Creatinine mass ratio 26 ratio Normal 7-27 [facility] ([place]) Comment on above: Performed By: #### C BC, ADIFF, ANEU, APTT, PRO ####[place] [address]#### GFR, BMP ####[place] [address] CBCon 05-07-2018 Erythrocyte distribution width Auto Ratio (RBC) 14.2 % Normal 11.5-14.5 [facility] ([place]) Comment on above: Performed By: #### C BC, ADIFF, ANEU, APTT, PRO ####[place] [address]#### GFR, BMP ####[place] [address] Hematocrit Auto Volume Fraction (Bld) 51.8 % Normal 42.0-52.0 [facility] ([place]) Comment on above: Performed By: #### C BC, ADIFF, ANEU, APTT, PRO ####[place] [address]#### GFR, BMP ####[place] [address] Hemoglobin mass conc (Bld) 17.1 G/dL Normal 14.0-18.0 [facility] ([place]) Comment on above: Performed By: #### C BC, ADIFF, ANEU, APTT, PRO ####[place] [address]#### GFR, BMP ####[place] [address] MCH Auto Entitic mass (RBC) 28.5 pg Normal 27.0-31.2 [facility] ([place]) Comment on above: Performed By: #### C BC, ADIFF, ANEU, APTT, PRO ####[place] [address]#### GFR, BMP ####[address] [place], [place] [address] MCHC Auto mass conc (RBC) 33.0 G/dL Normal 31.8-35.4 [facility] ([place]) Comment on above: Performed By: #### C BC, ADIFF, ANEU, APTT, PRO ####[place] [address] [place] [address]#### GFR, BMP ####[place] [address] MCV Auto Entitic volume (RBC) 86.2 fL Normal 80.0-94.0 [facility] ([place]) Comment on above: Performed By: #### C BC, ADIFF, ANEU, APTT, PRO ####[place] [address]#### GFR, BMP ####[place] [address] Platelet mean volume Auto Entitic volume (Bld) 8.0 fL Normal 7.4-10.4 [facility] ([place]) Comment on above: Performed By: #### C BC, ADIFF, ANEU, APTT, PRO ####[place] [address]#### GFR, BMP ####[place] [address] Platelets Auto #/vol (Bld) 262 10 3/mcL Normal 130-400 [facility] ([place]) Comment on above: Performed By: #### C BC, ADIFF, ANEU, APTT, PRO ####[place] [address]#### GFR, BMP ####[place] [address] RBC Auto #/vol (Bld) 6.01 10 6/mcL Normal 4.04-6.13 [facility] ([place]) Comment on above: Performed By: #### C BC, ADIFF, ANEU, APTT, PRO ####[place] [address] [place] [address]#### GFR, BMP ####[address] [address] [place], [place] [address] WBC Auto #/vol (Bld) 13.20 10 3/mcL High 4.60-10.80 [facility] ([place]) Comment on above: Performed By: #### C BC, ADIFF, ANEU, APTT, PRO ####[facility] [place] [address]#### GFR, BMP ####[place] [address] Gel ABOon 05-07-2018 ABO/Rh Interp Positive Invalid Interpretation Code [facility] ([place]) Comment on above: Performed By: #### A ASPEN ANSG ####[place] [address] [place] [address] Gel ABSon 05-07-2018 Antibody Screen Gel Negative Normal [facility] ([place]) Comment on above: Performed By: #### A ASPEN ANSG ####[place] [address] [place] [address] HHon 05-07-2018 Hematocrit Auto Volume Fraction (Bld) 43.2 % Normal 42.0-52.0 [facility] ([place]) Comment on above: Performed By: #### C BC, ADIFF, ANEU, APTT, PRO ####[place] [address]#### GFR, BMP ####[place] [address] Hemoglobin mass conc (Bld) 14.6 G/dL Normal 14.0-18.0 [facility] ([place]) Comment on above: Performed By: #### C BC, ADIFF, ANEU, APTT, PRO ####[facility]832 [place] [address]#### GFR, BMP ####[place] [address] PROon 05-07-2018 INR Coag RelTime (PPP) 1.0 {INR} Normal 0.9-1.2 [facility] ([place]) Comment on above: Result Comment: Thomas dard Dose 2.0 - 3.0High Dose 2.5 - 3.5The recommended therapeutic range for oral anticoagulanttherapy is:LOW RISK: Prophylaxis of venous thrombosis INR: 2.0 - 3.0 Treatment of pulmonary embolism 2.0 - 3.0 Prevention of systemic embolism 2.0 - 3.0HIGH RISK: Mechanical prosthetic valves 2.5 - 3.5 Performed By: #### C BC, ADIFF, ANEU, APTT, PRO ####[place] [address] [place], [place] [address]#### GFR, BMP ####[address] [address] Prothrombin time (PT) Coag time (PPP) 11.0 s Normal 9.3-14.6 [facility] ([place]) Comment on above: Performed By: #### C BC, ADIFF, ANEU, APTT, PRO ####[place] [address] [place], [place] [address]#### GFR, BMP ####[place] [address] Final Surgical Pathology Rep [facility] 05-02-2018 Final Surgical Pathology Report . Pathology ReportsAccession: Collected Date/Time: Received Date/Time: Pathologist:[id number] 04/30/2018 09:44 EST 05/01/2018 09:16 EST MD JUAN VALDEZ Final Surgical Pathology ReportDIAGNOSIS:A) TRANSVERSE COLON, POLYPECTOMY -- TUBULOVILLOUS ADENOMA.B) DESCENDING COLON, POLYPECTOMY -- TUBULAR ADENOMA.COMMENT:[facility] #[id number] INFORMATION:Procedure: COLONOSCOPY WITH POLYPECTOMYPreoperative diagnosis: SCREENINGPostoperative diagnosis: SAMESPECIMEN:A POLYP- TRANSVERSE COLONB POLYP- DE SENDING COLONGROSS DESCRIPTION:A. Received in formalin labeled transverse colon polyp is a 1.2 x 1.2 x 1.1 cm knott lobulated tissue. Bisected. TS -1B. Received in formalin labeled descending colon polyp is a 1 x 0.8 x 0.7 cm red-brown lobulated tissue. Bisected. TS -1Dictated by Alecia RANGEL ([facility])MICROSCOPIC DESCRIPTION:A&B) Slides reviewed.Electronically Signed byPathology Report verified by [facility] HospitalElectronically signed by JUAN VALDEZ MDSign out Date: 05/02/2018 16:48Performing Lab: [address] [place] [address] [facility] ([place]) Comment on above: Performed By: #### S PFR ####[facility] [place] [address] Vital Signs Date Time Vital Sign Value Performing Clinician Facility 11-04-2024 09:00-0400 Body temperature 98.5 [degF] Dr. Harry Felder MD Work Phone: 9(707)190-912709 [place] [address] 11-04-2024 09:00-0400 Diastolic blood pressure 76 mm[Hg] Dr. Harry Felder MD Work Phone: 6(174)150-856509 [place] [address] 11-04-2024 09:00-0400 Heart rate 111 /min Dr. Harry Felder MD Work Phone: 8(894)138-260009 [place] [address] 11-04-2024 09:00-0400 Respiratory rate 15 /min Dr. Harry Felder MD Work Phone: 6(921)568-652509 [place] [address] 11-04-2024 09:00-0400 SaO2% (BldA) [Mass fraction] 97 % Dr. Harry Felder MD Work Phone: 5(959)498-982409 [place] [address] 11-04-2024 09:00-0400 Systolic blood pressure 127 mm[Hg] Dr. Harry Felder MD Work Phone: 7(398)369-412041 [place] [address] 11-04-2024 06:06-0400 Body height 195.[address] Harry Felder MD Work Phone: 6(744)197-239309 [place] [address] 11-04-2024 06:06-0400 Body mass index (BMI) [Ratio] 47.2 kg/m2 Dr. Harry Felder MD Work Phone: 2(032)744-955909 [place] [address] 11-04-2024 06:06-0400 Body weight 180.[address] Harry Felder MD Work Phone: 0(893)541-198909 [place] [address] 10-03-2024 15:29-0400 Body mass index (BMI) [Ratio] 47 kg/m2 Dr. Harry Felder MD Work Phone: 5(654)002-310909 [place] [address] 10-03-2024 15:29-0400 Body weight 180.[address] Harry Felder MD Work Phone: [facility] 10-03-2024 15:29-0400 Diastolic blood pressure 84 mm[Hg] Dr. Harry Felder MD Work Phone: [facility] 10-03-2024 15:29-0400 Heart rate 100 /min Dr. Harry Felder MD Work Phone: [facility] 10-03-2024 15:29-0400 Respiratory rate 16 /min Dr. Harry Felder MD Work Phone: [facility] 10-03-2024 15:29-0400 Systolic blood pressure 120 mm[Hg] Dr. Harry Felder MD Work Phone: [facility] 11-27-2023 09:25-0400 Body mass index (BMI) [Ratio] 51.24 kg/m2 Vanessa Grullon APRN.VECTOR CONTROL SPECIALIST Work Phone: [facility] 11-27-2023 09:25-0400 Body temperature 98.6 [degF] Vanessa Grullon CORPORATE AUDITOR.VECTOR CONTROL SPECIALIST Work Phone: [facility] 11-27-2023 09:25-0400 Body weight 196 kg Vanessa Grullon APRN.VECTOR CONTROL SPECIALIST Work Phone: [facility] 11-27-2023 09:25-0400 Diastolic blood pressure 76 mm[Hg] Vanessa Grullon APRN.VECTOR CONTROL SPECIALIST Work Phone: [facility] 11-27-2023 09:25-0400 Heart rate 101 /min Vanessa Grullon APRN.VECTOR CONTROL SPECIALIST Work Phone: [facility] 11-27-2023 09:25-0400 Respiratory rate 16 /min Vanessa Grullon APRN.VECTOR CONTROL SPECIALIST Work Phone: [facility] 11-27-2023 09:25-0400 SaO2% (BldA) [Mass fraction] 96 % Vanessa Grullon APRN.VECTOR CONTROL SPECIALIST Work Phone: [facility] 11-27-2023 09:25-0400 Systolic blood pressure 144 mm[Hg] Vanessa Mitchel CORPORATE AUDITOR.VECTOR CONTROL SPECIALIST Work Phone: [facility] 11-16-2023 08:23-0400 Body mass index (BMI) [Ratio] 51.24 kg/m2 Elisa Celis CORPORATE AUDITOR.VECTOR CONTROL SPECIALIST Work Phone: [facility] 11-16-2023 08:23-0400 Body temperature 98.01 [degF] Elisa Celis CORPORATE AUDITOR.VECTOR CONTROL SPECIALIST Work Phone: [facility] 11-16-2023 08:23-0400 Body weight 196 kg Elisa Celis CORPORATE AUDITOR.VECTOR CONTROL SPECIALIST Work Phone: [facility] 11-16-2023 08:23-0400 Diastolic blood pressure 78 mm[Hg] Elisa Celis CORPORATE AUDITOR.VECTOR CONTROL SPECIALIST Work Phone: [facility] 11-16-2023 08:23-0400 Heart rate 78 /min Elisa Celis CORPORATE AUDITOR.VECTOR CONTROL SPECIALIST Work Phone: [facility] 11-16-2023 08:23-0400 Respiratory rate 16 /min Elisa Celis CORPORATE AUDITOR.VECTOR CONTROL SPECIALIST Work Phone: [facility] 11-16-2023 08:23-0400 SaO2% (BldA) [Mass fraction] 96 % Elisa Celis CORPORATE AUDITOR.VECTOR CONTROL SPECIALIST Work Phone: [facility] 11-16-2023 08:23-0400 Systolic blood pressure 138 mm[Hg] Elisa Celis CORPORATE AUDITOR.VECTOR CONTROL SPECIALIST Work Phone: [facility] 10-28-2023 10:52-0400 Body mass index (BMI) [Ratio] 52.08 kg/m2 Gill Athy PA-C Work Phone: [facility] 10-28-2023 10:52-0400 Body temperature 99.19 [degF] Gill Athy PA-C Work Phone: [facility] 10-28-2023 10:52-0400 Body weight 199.2 kg Gill Athy PA-C Work Phone: [facility] 10-28-2023 10:52-0400 Diastolic blood pressure 82 mm[Hg] Gill Athy PA-C Work Phone: [facility] 10-28-2023 10:52-0400 Heart rate 102 /min Gill Athy PA-C Work Phone: [facility] 10-28-2023 10:52-0400 Respiratory rate 18 /min Gill Athy PA-C Work Phone: [facility] 10-28-2023 10:52-0400 SaO2% (BldA) [Mass fraction] 95 % Gill Athy PA-C Work Phone: [facility] 10-28-2023 10:52-0400 Systolic blood pressure 132 mm[Hg] Gill Athy PA-C Work Phone: [facility] 05-29-2023 15:15-0500 Body height 195.[address] Harry Felder Work Phone: [facility] 05-29-2023 15:15-0500 Body mass index (BMI) [Ratio] 48 kg/m2 Dr. Harry Felder Work Phone: [facility] 05-29-2023 15:15-0500 Body weight 183.[address] Harry Felder Work Phone: [facility] 05-29-2023 15:15-0500 Diastolic blood pressure 77 mm[Hg] Dr. Harry Felder Work Phone: [facility] 05-29-2023 15:15-0500 Heart rate 82 /min Dr. Harry Felder Work Phone: [facility] 05-29-2023 15:15-0500 Respiratory rate 18 /min Dr. Harry Felder Work Phone: [facility] 05-29-2023 15:15-0500 Systolic blood pressure 126 mm[Hg] Dr. Harry Felder Work Phone: [facility] 02-03-2023 14:34-0400 Body height 195.[address] Harry Felder Work Phone: [facility] 02-03-2023 14:34-0400 Body mass index (BMI) [Ratio] 45.6 kg/m2 Dr. Harry Felder Work Phone: [facility] 02-03-2023 14:34-0400 Body weight 174.[address] Harry Felder Work Phone: [facility] 02-03-2023 14:34-0400 Diastolic blood pressure 73 mm[Hg] Dr. Harry Felder Work Phone: [facility] 02-03-2023 14:34-0400 Heart rate 80 /min Dr. Harry Felder Work Phone: [facility] 02-03-2023 14:34-0400 Respiratory rate 16 /min Dr. Harry Felder Work Phone: [facility] 02-03-2023 14:34-0400 Systolic blood pressure 116 mm[Hg] Dr. Harry Felder Work Phone: [facility] 01-31-2023 15:18-0400 Body temperature 98.2 [degF] Dr. Harry Felder Work Phone: [facility] 01-31-2023 15:18-0400 Body weight 176.[address] Harry Felder Work Phone: [facility] 01-31-2023 15:18-0400 Diastolic blood pressure 85 mm[Hg] Dr. Harry Felder Work Phone: [facility] 01-31-2023 15:18-0400 Heart rate 82 /min Dr. Harry Felder Work Phone: [facility] 01-31-2023 15:18-0400 Respiratory rate 16 /min Dr. Harry Felder Work Phone: [facility] 01-31-2023 15:18-0400 SaO2% (BldA) [Mass fraction] 96 % Dr. Harry Felder Work Phone: [facility] 01-31-2023 15:18-0400 Systolic blood pressure 133 mm[Hg] Dr. Harry Felder Work Phone: [facility] 01-18-2023 11:24-0400 Diastolic blood pressure 79 mm[Hg] Dr. Harry Felder Work Phone: [facility] 01-18-2023 11:24-0400 Heart rate 84 /min Dr. Harry Felder Work Phone: [facility] 01-18-2023 11:24-0400 Respiratory rate 16 /min Dr. Harry Felder Work Phone: [facility] 01-18-2023 11:24-0400 SaO2% (BldA) [Mass fraction] 97 % Dr. Harry Felder Work Phone: [facility] 01-18-2023 11:24-0400 Systolic blood pressure 154 mm[Hg] Dr. Harry Felder Work Phone: [facility] 01-18-2023 09:10-0400 Body height 195.[address] Harry Felder Work Phone: [facility] 01-18-2023 09:10-0400 Body mass index (BMI) [Ratio] 46.1 kg/m2 Dr. Harry Felder Work Phone: [facility] 01-18-2023 09:10-0400 Body temperature 97.2 [degF] Dr. Harry Felder Work Phone: [facility] 01-18-2023 09:10-0400 Body weight 176.[address] Harry Felder Work Phone: [facility] 12-20-2022 12:00-0400 Body height 195.6 cm Kenyon Moya MD Work Phone: [facility] 12-20-2022 12:00-0400 Body mass index (BMI) [Ratio] 47.18 kg/m2 Kneyon Moya MD Work Phone: [facility] 12-20-2022 12:00-0400 Body weight 180.49 kg Kenyon Moya MD Work Phone: [facility] 12-20-2022 12:00-0400 Diastolic blood pressure 77 mm[Hg] Kenyon Moya MD Work Phone: [facility] 12-20-2022 12:00-0400 Heart rate 80 /min Kenyon Moya MD Work Phone: [facility] 12-20-2022 12:00-0400 Respiratory rate 20 /min Kenyon Moya MD Work Phone: [facility] 12-20-2022 12:00-0400 SaO2% (BldA) [Mass fraction] 95 % Kenyon Moya MD Work Phone: [facility] 12-20-2022 12:00-0400 Systolic blood pressure 132 mm[Hg] Kenyon Moya MD Work Phone: [facility] 09-10-2022 05:27-0400 Body temperature 98.01 [degF] Kenyon Moya MD Work Phone: [facility] 09-10-2022 05:27-0400 Diastolic blood pressure 76 mm[Hg] Kenyon Moya MD Work Phone: [facility] 09-10-2022 05:27-0400 Heart rate 75 /min Kenyon Moya MD Work Phone: [facility] 09-10-2022 05:27-0400 Respiratory rate 16 /min Kenyon Moya MD Work Phone: [facility] 09-10-2022 05:27-0400 SaO2% (BldA) [Mass fraction] 96 % Kenyon Moya MD Work Phone: [facility] 09-10-2022 05:27-0400 Systolic blood pressure 129 mm[Hg] Kenyon Moya MD Work Phone: [facility] 09-09-2022 23:21-0400 Body height 195.6 cm Kenyon Moya MD Work Phone: [facility] 09-09-2022 23:21-0400 Body mass index (BMI) [Ratio] 53.72 kg/m2 Kenyon Moya MD Work Phone: [facility] 09-09-2022 23:21-0400 Body weight 205.48 kg Kenyon Moya MD Work Phone: [facility] 03-11-2022 12:48-0400 Inhaled oxygen concentration 21 % Dr. Mallory Payne Work Phone: [facility] Work Phone: 03-11-2022 12:48-0400 Respiratory rate 18 /min Dr. Mallory Payne Work Phone: [facility] Work Phone: 03-11-2022 12:48-0400 SaO2% (BldA) [Mass fraction] 100 % Dr. Mallory Payne Work Phone: [facility] Work Phone: 03-11-2022 10:55-0400 Body height 195.[address] Mallory Payne Work Phone: [facility] Work Phone: 03-11-2022 10:55-0400 Body weight 200.[address] Mallory Payne Work Phone: [facility] Work Phone: 03-10-2022 07:48-0400 Body mass index (BMI) [Ratio] 52.2 kg/m2 Dr. Mallory Payne Work Phone: [facility] Work Phone: 03-01-2022 12:20-0400 Body mass index (BMI) [Ratio] 52.2 kg/m2 Dr. Mallory Payne Work Phone: [facility] Work Phone: 03-01-2022 12:20-0400 Body weight 200.[address] Mallory Payne Work Phone: [facility] Work Phone: 03-01-2022 12:20-0400 Diastolic blood pressure 85 mm[Hg] Dr. Mallory Payne Work Phone: [facility] Work Phone: 03-01-2022 12:20-0400 Heart rate 90 /min Dr. Mallory Payne Work Phone: [facility] Work Phone: 03-01-2022 12:20-0400 Respiratory rate 18 /min Dr. Mallory Payne Work Phone: [facility] Work Phone: 03-01-2022 12:20-0400 SaO2% (BldA) [Mass fraction] 95 % Dr. Mallory Payne Work Phone: [facility] Work Phone: 03-01-2022 12:20-0400 Systolic blood pressure 134 mm[Hg] Dr. Mallory Payne Work Phone: [facility] Work Phone: 01-03-2022 09:15-0400 Diastolic blood pressure 75 mm[Hg] Anjel Avilez MD Work Phone: [facility] 01-03-2022 09:15-0400 Heart rate 82 /min Anjel Avilez MD Work Phone: [facility] 01-03-2022 09:15-0400 Respiratory rate 17 /min Anjel Avilez MD Work Phone: [facility] 01-03-2022 09:15-0400 SaO2% (BldA) [Mass fraction] 93 % Anjel Avilez MD Work Phone: [facility] 01-03-2022 09:15-0400 Systolic blood pressure 143 mm[Hg] Anjel Avilez MD Work Phone: [facility] 01-03-2022 08:38-0400 Body temperature 97.5 [degF] Anjel Avilez MD Work Phone: [facility] 01-03-2022 07:14-0400 Body height 195.6 cm Anjel Avilez MD Work Phone: [facility] 01-03-2022 07:14-0400 Body weight 200.49 kg Anjel Avilez MD Work Phone: [facility] 12-20-2021 15:38-0400 Body height 195.6 cm Pacc 1 Work Phone: [facility] 12-20-2021 15:38-0400 Body temperature 98.2 [degF] Pacc 1 Work Phone: [facility] 12-20-2021 15:38-0400 Body weight 200.49 kg Pacc 1 Work Phone: [facility] 12-20-2021 15:38-0400 Diastolic blood pressure 82 mm[Hg] Pacc 1 Work Phone: [facility] 12-20-2021 15:38-0400 Heart rate 96 /min Pacc 1 Work Phone: [facility] 12-20-2021 15:38-0400 Respiratory rate 18 /min Pacc 1 Work Phone: [facility] 12-20-2021 15:38-0400 SaO2% (BldA) [Mass fraction] 94 % Pacc 1 Work Phone: [facility] 12-20-2021 15:38-0400 Systolic blood pressure 160 mm[Hg] Pacc 1 Work Phone: [facility] 08-30-2021 08:31-0400 Body height 195.6 cm Lynda Rubi PA-C Work Phone: [facility] 08-30-2021 08:31-0400 Body temperature 98.01 [degF] Lynda Rubi PA-C Work Phone: [facility] 08-30-2021 08:31-0400 Body weight 194.59 kg Lynda Rubi PA-C Work Phone: [facility] 08-30-2021 08:31-0400 Diastolic blood pressure 93 mm[Hg] Lynda Rubi PA-C Work Phone: [facility] 08-30-2021 08:31-0400 Heart rate 104 /min Lynda Rubi PA-C Work Phone: [facility] 08-30-2021 08:31-0400 SaO2% (BldA) [Mass fraction] 96 % Lynda Rubi PA-C Work Phone: [facility] 08-30-2021 08:31-0400 Systolic blood pressure 156 mm[Hg] Lynda Grimesland PA-C Work Phone: [facility] 07-08-2021 08:55-0500 Body temperature 98.2 [degF] [facility] Work Phone: 07-08-2021 08:55-0500 Diastolic blood pressure 75 mm[Hg] [facility] Work Phone: 07-08-2021 08:55-0500 Heart rate 75 /min [facility] Work Phone: 07-08-2021 08:55-0500 Respiratory rate 18 /min [facility] Work Phone: 07-08-2021 08:55-0500 Systolic blood pressure 136 mm[Hg] [facility] Work Phone: Encounters Encounter Date Encounter Type Care Provider Facility Start: 2024 End: [address] Harry Felder MD Work Phone: [facility] Work Phone: Start: 2024 End: [address] Harry Felder MD -Laboratory [facility] Start: 2024 End: 2024 ambulatory Harry Felder Facility:[facility] Start: 11-04-2024 End: 11-04-2024 Emergency department patient visit Dr. Harry Felder MD Work Phone: -Emergency Department Work Phone: Start: 10-03-2024 End: 10-03-[address] Thad Auguste MD -[facility] Work Phone: Start: 10-03-2024 End: 10-03-2024 ambulatory Harry Felder Facility:[facility] Start: 09-16-2024 End: 09-16-[address] Harry Felder MD Work Phone: [facility] Work Phone: Start: 09-16-2024 End: 09-16-[address] Harry Felder MD -Laboratory, [facility] Start: 09-16-2024 End: 09-16-2024 ambulatory Harry Felder Facility:[facility] Start: 09-07-2024 End: 09-07-[address] Harry Felder MD Work Phone: [facility] Work Phone: Start: 09-07-2024 End: 09-07-[address] Harry Felder MD -Laboratory Work Phone: Start: 09-07-2024 End: 09-07-2024 ambulatory Harry Felder Facility:[facility] Start: 06-22-2024 End: 06-22-[address] Harry Felder MD -Laboratory Work Phone: Start: 06-22-2024 End: 06-22-2024 ambulatory Harry Felder Facility:[facility] Start: 03-23-2024 End: 03-23-2024 [facility] Start: 12-12-2023 End: 12-12-2023 ambulatory Harry Felder Facility:[facility] Start: 11-27-2023 End: 11-27-2023 Subsequent hospital visit by physician Xr [facility] Work Phone: Radiology Comment on above: Subacute cough [R05. 2] Start: 11-27-2023 End: 11-27-2023 ambulatory HARRY FELDER Facility:[facility] Start: 11-27-2023 End: 11-27-2023 Patient encounter procedure Vanessa Grullon CORPORATE AUDITOR.VECTOR CONTROL SPECIALIST Work Phone: [facility] Comment on above: Wheezing (Primary Dx ); Subacute cough Start: 11-16-2023 Telephone encounter Elisa frederick CORPORATE AUDITOR.VECTOR CONTROL SPECIALIST Work Phone: [facility] Comment on above: Patient Question Start: 11-16-2023 End: 11-16-2023 Subsequent hospital visit by physician Xr [facility] Work Phone: Radiology Comment on above: Acute cough [R05.1] Start: 11-16-2023 End: 11-16-2023 ambulatory ELISA CELIS Facility:[facility] Start: 11-16-2023 End: 11-16-2023 Patient encounter procedure Elisa Celis CORPORATE AUDITOR.VECTOR CONTROL SPECIALIST Work Phone: [facility] Comment on above: Community acquired p neumonia of left lung, unspecified part of lung (Primary Dx); Acute cough Start: 10-28-2023 End: 10-28-2023 ambulatory HARRY FELDER Facility:[facility] Start: 10-28-2023 End: 10-28-2023 Patient encounter procedure Gill Scott PA-C Work Phone: [facility] Comment on above: Skin infection (Prim татьяна Dx) Start: 09-16-2023 End: 09-16-[address] Harry Felder Work Phone: [facility] Work Phone: Start: 09-16-2023 End: 09-16-[address] [facility] Start: 06-17-2023 End: 06-17-[address] Harry Felder Work Phone: [facility] Work Phone: Start: 06-17-2023 End: 06-17-[address] [facility] Start: 05-29-2023 End: 05-29-[address] Harry Felder Work Phone: [facility] Work Phone: Start: 03-20-2023 End: 03-20-[address] Harry Felder Work Phone: [facility] Work Phone: Start: 03-20-2023 End: 03-20-[address] [facility]: Start: 02-17-2023 Non-patient / Non-visit Dr. Amanda Felder Work Phone: [facility] Start: 02-17-2023 End: 02-17-[address] Harry Felder Work Phone: [facility] Work Phone: Start: 02-17-2023 End: 02-17-[address] [facility] Fel[facility] Work [facility]: Start: 02-03-2023 End: 02-03-[address] Harry Felder Work Phone: [facility] Work Phone: Start: 01-31-2023 End: 01-31-[address] Harry Felder Work Phone: [facility] Work Phone: Start: 01-18-2023 End: 01-18-2023 Emergency department patient visit Dr. Harry Felder Work Phone: [facility]Emergency Department Work Phone: Start: 12-29-2022 End: 12-29-[address] Harry Felder Work Phone: [facility] Start: 12-20-2022 ambulatory KENYON MOYA Facility: [facility] Start: 12-20-2022 End: 12-20-2022 Office outpatient visit 25 minutes Kenyon Moya MD Work Phone: [facility] Comment on above: Longstanding persist ent atrial fibrillation (Primary Dx) Start: 12-12-2022 End: 12-12-[address] Harry Felder Work Phone: [facility] Start: 09-23-2022 End: 09-23-[address] Harry Felder Work Phone: [facility] Work Phone: Start: 09-20-2022 Non-patient / Non-visit Dr. Amanda Felder Work Phone: [facility] Start: 09-14-2022 End: 09-14-[address] Harry Felder Work Phone: [facility] Work Phone: Start: 09-14-2022 End: 09-14-[address] Harry Felder Work Phone: [facility] Start: 09-08-2022 Non-patient / Non-visit Dr. Amanda Felder Work Phone: [facility] Start: 09-07-2022 End: 09-10-2022 Evaluation and management of inpatient THAD S MOLINA Facility:[facility] Start: 09-07-2022 ambulatory KENYON Jw YORKD Facility: [facility] Start: 09-07-2022 End: 09-10-2022 Evaluation and management of inpatient Kenyon Moya MD Work Phone: [facility] Comment on above: Longstanding persist ent atrial fibrillation Start: 09-07-2022 End: 09-07-2022 Subsequent hospital visit by physician Kenyon Moya MD Work Phone: [facility] Comment on above: Arrived Start: 08-04-2022 End: 08-04-2022 Subsequent hospital visit by physician Kenyon Moya MD Work Phone: [facility] Comment on above: Canceled (Cancel Cheryle son Not Listed - Please provide detailed information) Start: 08-04-2022 ambulatory KENYON Jw NITA Facility: [facility] Start: 06-28-2022 ambulatory THAD S MOLINA Facility: [facility] Start: 06-03-2022 End: 06-03-[address] Mallory Payne Work Phone: [facility] Work Phone: Start: 06-03-2022 End: 06-03-[address] Mallory Payne Work Phone: [facility] Start: 03-22-2022 ambulatory HARRY FELDER Facility: [facility] Start: 03-17-2022 End: 03-17-[address] Mallory Payne Work Phone: [facility] Start: 03-11-2022 Non-patient / Non-visit Dr. Juan Ramon Payne Work Phone: [facility] Medicine [facility] Start: 03-11-2022 End: 03-11-2022 Admission to same day surgery center Dr. Mallory Payne Work Phone: [facility] Start: 03-11-2022 End: 03-11-[address] Mallory Payne Work Phone: [facility] Work Phone: Start: 03-01-2022 End: 03-01-[address] Mallory Payne Work Phone: [facility] Start: 02-17-2022 End: 02-17-2022 ambulatory [facility] Work Phone: Start: 02-17-2022 End: 02-17-2022 Patient encounter procedure [facility] Start: 02-15-2022 End: 02-15-2022 ambulatory [facility] Work Phone: Start: 02-15-2022 End: 02-15-2022 Patient encounter procedure [facility] Start: 01-03-2022 End: 01-03-2022 Subsequent hospital visit by physician Anjel Avilez MD Work Phone: [facility] Comment on above: Personal history of colonic polyps [Z86.010] Start: 12-20-2021 End: 12-20-2021 Admission to [facility] 1 Work Phone: [facility] Start: 12-20-2021 End: 12-20-2021 [place] [id number] Work Phone: Pre Anesthesia Comment on above: Pre-operative examin ation (Primary Dx); History of colonic polyps; Atrial fibrillation, unspecified type (HCC); Hyperlipidemia, unspecified hyperlipidemia type; Hypertension associated with type 2 diabetes mellitus (HCC); Diabetic foot ulcer associated with type 2 diabetes mellitus, unspecified laterality, unspecified part of foot, unspecified ulcer stage (HCC); Type 2 diabetes mellitus with diabetic polyneuropathy, with long-term current use of insulin (HCC); Morbid obesity (HCC); TONYA (obstructive sleep apnea) Start: 12-20-2021 End: 12-20-2021 Preprocedural examination done [place] [id number] Work Phone: Pre Anesthesia Start: 12-20-2021 Telephone encounter Alma Jackson APRN.CNP Work Phone: Pre Anesthesia Comment on above: Received Outside Med ical Records (HgbA1c) Start: 10-08-2021 End: 10-08-2021 Patient encounter procedure [facility] Start: 08-30-2021 Telephone encounter Lynda dahl PA-C Work Phone: General Surgery Comment on above: 01-03-2022 Colon Med michael Start: 08-30-2021 End: 08-30-2021 Patient encounter procedure Lynda Venegas PA-C Work Phone: General Surgery Comment on above: Encounter for colono scopy due to history of colonic polyp (Primary Dx) Start: 07-08-2021 End: 07-08-2021 Discharged Recurring [facility] Start: 05-07-2018 End: 05-09-2018 Evaluation and management of inpatient HARRY KELLY Facility:[facility] Start: 04-30-2018 End: 04-30-2018 Patient encounter procedure JOSHUA MUIR Facility:[facility] Procedures Date Procedure Procedure Detail Performing Clinician Start: 11-04-[address] Harry Felder MD Work Phone: Start: 11-04-[address] Harry Felder MD Work Phone: Start: 11-04-[address] Harry Felder MD Work Phone: Start: 11-04-2024 Urnls dip stick/tabl et reagent auto microscopy Dr. Harry Felder MD Work Phone: Start: 09-16-2024 Prostate specific an tigen measurement Dr. Harry Felder MD Work Phone: Comment on above: This test was perfor med using the [employer] tPSA method. Measured values of a patient sample can vary depending on the testing procedure used. PSA values determined on patient samples by different testing procedures cannot be used interchangeably. If there is a change in PSA assays while monitoring therapy, sequential testing should be performed to confirm baseline values. Start: 11-27-2023 Radiologic exam ches t 2 views Vanessa Grullon CORPORATE AUDITOR.VECTOR CONTROL SPECIALIST Work Phone: Start: 11-16-2023 Radiologic exam ches t 2 views Elisa Celis CORPORATE AUDITOR.VECTOR CONTROL SPECIALIST Work Phone: Start: 01-18-2023 CT angiography of he ad and neck Dr. Harry Felder Work Phone: Start: 09-23-2022 Ultrasound of scrotu m with Doppler and color flow imaging Dr. Harry Felder Work Phone: Start: 09-10-2022 Glucose measurement, blood Kenyon Moya MD Work Phone: Start: 09-10-2022 CONTINUOUS CARDIAC MONITORING STRIP Other Other Start: 09-10-2022 Assay of magnesium Erwin More CORPORATE AUDITOR-VECTOR CONTROL SPECIALIST Work Phone: Start: 09-09-2022 CONTINUOUS CARDIAC MONITORING [...] Other Start: 09-09-2022 Assay of magnesium Erwin More CORPORATE AUDITOR-VECTOR CONTROL SPECIALIST Work Phone: Start: 09-08-2022 CONTINUOUS CARDIAC MONITORING STRIP Other Other Start: 09-08-2022 Glucose measurement, blood Kenyon Moya MD Work Phone: Start: 09-08-2022 CONTINUOUS CARDIAC MONITORING STRIP Other Other Start: 09-08-2022 Glucose measurement, blood Kenyon Moya MD Work Phone: Start: 09-08-2022 End: 09-08-2022 Glucose measurement, blood Kenyon Moya MD Work Phone: Start: 09-08-2022 Assay of magnesium Martinab justice More CORPORATE AUDITOR-VECTOR CONTROL SPECIALIST Work Phone: Start: 09-07-2022 Glucose measurement, blood [...] Start: 09-07-2022 CBC AND ELECTRONIC DIFF Argentina Vásquez CORPORATE AUDITOR-VECTOR CONTROL SPECIALIST Work Phone: Start: 09-07-2022 Complete blood count with white cell differential, automated Argentina Vásquez CORPORATE AUDITOR-VECTOR CONTROL SPECIALIST Work Phone: Start: 03-29-2023 Ct heart contrast ev al cardiac structure&morph Kenyon Moya MD Work Phone: Start: 09-07-2022 End: 09-07-2022 Creatinine blood Kenyon Moya MD Work Phone: Start: 01-03-2022 Gluc bld gluc mntr d ev cleared fda spec home use Nichole Humphries MD Work Phone: Start: 01-03-2022 Colon ca scrn not hi rsk ind Lynda PA-C Work Phone: Start: 01-03-2022 Gluc bld gluc mntr d ev cleared fda spec home use Nichole Humphries MD Work Phone: Start: 01-03-2022 Colonoscopy Anjel khan MD Work Phone: Plan of Treatment Date Care Activity Detail Author Start: 01-04-2032 Screening for malignant neoplasm of colon [facility] Start: 11-04-2024 Bacteria identified in Blood by Culture Blood Culture [facility] Start: 11-04-2024 Bacteria identified in Urine by Culture Urine Culture [facility] Start: 11-04-2024 [facility] Start: 11-04-2024 End: 11-04-2024 [facility] Start: 02-11-2024 Covid-19 Vaccine ( season) Covid-19 Vaccine () [facility] Start: 02-11-2024 Influenza vaccination [facility] Start: 06-12-2023 Behavioral Health Screening Behavioral Health Screening [facility] Start: 03-16-2023 End: 03-16-2023 Patient encounter procedure 03/16/2023 Office Visit [facility] [place] Start: 02-10-2023 Covid-19 Vaccine () Covid-19 Vaccine () [facility] Start: 02-10-2023 Influenza vaccination [facility] Start: 01-03-2023 Colonoscopy COLONOSCOPY [facility] Start: 01-03-2023 COLORECTAL CANCER SCREENING COLORECTAL CANCER SCREENING [facility] Start: 12-20-2022 End: 12-20-2022 Patient encounter procedure 12/20/2022 Office Visit Electrophysiology Kenyon Moya MD [address] [place] [address] [facility] Start: 11-13-2022 Prostate specific antigen measurement Prostate Cancer Screening Discussion [facility] Start: 10-19-2022 End: 09-08-2023 Cardiac telemetry MOBILE CARDIAC TELEMETRY ECG Routine Longstanding persistent atrial fibrillation Expected: 10/19/2022, Expires: 09/08/2023 [facility] Comment on above: Expected: 10/19/2022, Expires: Start: 09-07-2022 End: 09-07-2022 Admission to same day surgery center 09/07/2022 Surgery Electrophysiology Kenyon Moya MD [address] [place] [address] ABLATION SCHED INTERCARDIAC A-FIB TRANSEPTAL BY PULM VE) [facility] Comment on above: ABLATION SCHED INTERCARDIAC A-FIB TRANSE PTAL BY PULM VE) Start: 09-07-2022 Subsequent hospital visit by physician 09/07/2022 Hospital Encounter Multispecialty Kenyon Moya MD [address] [place] [address] Palpitations Cardiology [facility] Comment on above: Palpitations Start: 09-07-2022 End: 09-07-2022 Patient encounter procedure 09/07/2022 Appointment Computerized Tomography Scan Kenyon Moya MD [address] [place] [address] [facility] [facility] Start: 03-11-2022 Continuous pulse oximetry [facility] Work Phone: Start: 03-11-2022 Dual pressure spontaneous ventilation support [facility] Work Phone: Start: 02-10-2022 Influenza vaccination [facility] Start: 02-10-2021 Influenza vaccination INFLUENZA (#1) [facility] Start: 11-13-2017 Prostate specific antigen measurement PROSTATE CANCER SCREENING DISCUSSION [facility] Start: 11-13-2017 SHINGRIX VACCINE (1 of 2) SHINGRIX VACCINE (1 of 2) [facility] Start: 11-13-2017 Zoster vaccine hzv live for subcutaneous use ZOSTER (SHINGLES) VACCINE (1 of 2) [facility] Start: 11-13-2012 COLOGUARD (FIT-DNA) COLOGUARD (FIT-DNA) [facility] Start: 11-13-2012 Colonoscopy COLONOSCOPY [facility] Start: 11-13-2012 COLORECTAL CANCER SCREENING COLORECTAL CANCER SCREENING [facility] Start: 11-13-[address] COLONOGRAPHY [facility] Start: 11-13-2012 DIABETES SCREEN DIABETES SCREEN [facility] Start: 11-13-2012 FECAL OCCULT BLOOD FECAL OCCULT BLOOD [facility] Start: 11-13-2012 Screening for malignant neoplasm of colon [facility] Start: 11-13-2012 SIGMOIDOSCOPY SIGMOIDOSCOPY [facility] Start: 2007 Lipid panel LIPID SCREENING [facility] Start: 11-13-2002 LIPID SCREEN LIPID SCREEN [facility] Start: 11-13-1986 HEPATITIS B (1 of 3 - Risk 3-dose series) HEPATITIS B (1 of 3 - Risk 3-dose series) [facility] Start: 11-13-1986 Hepatitis B Vaccine (1 of 3 - 19+ 3-dose series) Hepatitis B Vaccine (1 of 3 - 19+ 3-dose series) [facility] Start: 11-13-1986 Third diphtheria, tetanus and acellular pertussis (DTaP) vaccination TDAP (ADULT) [facility] Start: 11-13-1986 Urine microalbumin profile [facility] Start: 11-13-1985 ANNUAL PCP TEAM CHRONIC DISEASE VISIT ANNUAL PCP TEAM CHRONIC DISEASE VISIT [facility] Start: 11-13-1985 Anxiety Screening Anxiety Screening [facility] Start: 11-13-1985 BP CONTROLLED (<130/80) BP CONTROLLED (<130/80) [facility] Start: 11-13-1985 Depression Screening Depression Screening [facility] Start: 11-13-1985 Hepatitis B surface antibody level LDL CHOLESTEROL [facility] Start: 11-13-1985 HEPATITIS C SCREENING HEPATITIS C SCREENING [facility] Start: 11-13-1985 Hepatitis C screening Hepatitis C Screening [facility] Start: 11-13-1985 HIV SCREENING HIV SCREENING [facility] Start: 11-13-1985 HIV screening HIV Screening [facility] Start: 11-13-1982 HIV screening HIV SCREENING DISCUSSION [facility] Start: 1979 Adult depression screening assessment DEPRESSION SCREENING [facility] Start: 11-13-1977 3 comp foot exam completed DIABETIC FOOT EXAM [facility] Start: 11-13-1977 Diabetic foot examination Diabetic Foot Exam [facility] Start: 11-13-1977 Glaucoma screening Dilated Retinal Exam [facility] Start: 11-13-1977 Hepatitis B screening URINE ALBUMIN:CREATININE RATIO [facility] Start: 11-13-1977 Hepatitis C antibody, confirmatory test DILATED RETINAL EXAM [facility] Start: 11-13-1973 PNEUMOCOCCAL (1 - PCV) PNEUMOCOCCAL (1 - PCV) [facility] Start: 11-13-1973 Pneumococcal vaccination Pneumococcal Vaccine (1 of 2 - PCV) [facility] Start: 11-13-1972 COVID-19 VACCINE (#1) COVID-19 VACCINE (#1) [facility] Start: 11-13-1972 COVID-19 VACCINE (1) COVID-19 VACCINE (1) [facility] Start: 11-13-1972 Hemoglobin A1c measurement HbA1C [facility] Start: 11-13-1972 Hemoglobin A1c/Hemoglobin.total in Blood HBA1C [facility] Start: 05-15-1968 COVID-19 VACCINE (#1) COVID-19 VACCINE (#1) [facility] Start: 1967 Hepatitis C screening HEPATITIS C VIRUS SCREENING [facility] Start: 1967 Tetanus vaccination TETANUS [facility] Blood chemistry [facility] Work Phone: Cardioversion [facility] Work Phone: Patient Education [facility] Work Phone: Patient referral [facility] Work Phone: End: 08-30-2022 Screening colonoscopy COLONOSCOPY SCREENING Endoscopy Routine Personal history of colonic polyps 1 Occurrences starting 08/30/2021 until 08/30/2022 [facility] Work Phone: Comment on above: 1 Occurrences starting 08/30/2021 until 08/30/2022 End: 09-08-2022 Standard ECG [facility] Comment on above: One Time for 1 Occurrences starting 08/12 until 09/08/2022 Standard ECG [facility] Work Phone: Standard ECG ECG ECG Routine 09/08/2022 7:57 AM EDT [facility] Standard ECG ECG ECG Routine Longstanding persistent atrial fibrillation 12/20/2022 12:04 PM EDT [facility] SURGICAL PATHOLOGY [facility] Work Phone: Comment on above: Release Upon Ordering for 1 Occurrences starting 01/03/2022, 1 completed Urine culture [facility] Payers Date Payer Category Payer Self-pay [id number] 2022 Private Health Insurance [id number] 2022 Private Health Insurance [id number] 2021 Unknown MARLEN PEDRAZA ACCE PPO [id number] 2021-Present [phone] [facility] [id number] [place] [address] PPO [id number] 2018 Unknown [id number] 2014 Unknown [id number] 2014 Unknown [id number] 1967 Unknown [id number] 627 1967 Unknown [id number] [id number]. 627 1967 Unknown [id number] [id number]. 594 1967 Unknown [id number] [id number]. 594 1967 Unknown [id number] [id number]. 594 1967 Unknown [id number] [id number]. 594 1967 Unknown [id number] [id number]. 594 1967 Unknown [id number] [id number]. 594 Unknown [id number] [id number]. 462 Unknown [id number] [id number]. 462 Unknown [id number] 2.16.840.1.095086.3.579.2. 462 Unknown [id number] [id number]. 462 Unknown [id number] [id number]. 462 Unknown [id number] [id number]. 462 Unknown [id number] [id number]. 462 Unknown [id number]. 462 Social History Date Type Detail Facility Start: 07-31-2012 End: 11-04-2024 Tobacco smoking status NHIS Never smoked tobacco [facility] Start: 07-31-2012 End: 10-28-2023 Tobacco use and exposure Smokeless tobacco non-user [facility] Start: 08-30-2021 Alcohol intake Not Asked [facility] Start: 1965 Sex Assigned At Male [facility] Start: 08-20-2021 End: 09-07-2022 Exposure to SARS-CoV-2 (event) Not sure [facility] Start: 06-03-2021 End: 05-29-2023 Tobacco smoking status NHIS Unknown if ever smoked [facility] Start: 01-21-2015 None [facility] Start: 01-21-2015 None;- [facility] Start: 01-21-2015 Spouse/ Signif icant Other [facility] Start: 01-21-2015 Non-smoker [facility] Start: 12-20-2021 End: 11-27-2023 Alcohol intake Lifetime non-drinker (finding) [facility] Start: 12-20-2021 History SDOH Alcohol Frequency 1 [facility] Start: 1965 Sex Assigned At Not on file [facility] Start: 07-08-2022 End: 10-28-2023 Gender identity Not on file [facility] Start: 07-08-2022 End: 10-28-2023 History of Social function [facility] National Score (1-10 0), lower number is lower risk 58 [facility] Start: 08-29-2021 Gender identity Identifies as male gender (finding) [facility] Start: 08-29-2021 Sexual orientation Heterosexual (fin ding) [facility] Start: 09-12-2024 End: 09-20-2024 Sex Male (finding) [facility] Mental Status Date Assessment Result Facility 01-18-2023 Cognitive function Level Of Cons ciousness Awake;Alert;Appropriate;Follow s Commands [facility] Work Phone: Clinical Notes 08-30-2021 to 11-04-2024 Note Date & Type Note Facility 11-04-2024 Discharge summary [facility] 10-03-2024 Evaluation note Diagnosis Onset Date Resolution Atrial flutter with rapid ventricular response acute October 03, 2024 3:23pm Essential hypertension chronic Ap 2024 3:23pm [facility] Work Phone: 1(336) 817-415306-17-2024 History of Present illness Narrative* Milady Donnelly RT(R) - 11/27/2023 10:00 AM EDT Radiology Service Progress Note PATIENT NAME: Sohail Thompson DATE OF SERVICE: November 27, 2023 TIME: 10:04 AM PATIENT IDENTITY VERIFICATION COMPLETED USING TWO (2) IDENTIFIERS: Name and Date of confirmedby patient verbally. FALL SCREENING: Has the patient had 2 falls in the last year or 1 fall with injury or currently using an Ambulatory Assistive Device (Walker, Cane, Wheelchair, Crutches, etc.)? No PATIENT GENDER DATA: Male PATIENT RELEVANT IMPLANT DATA REVIEWED: Yes PATIENT PRESENTS WITH AN IMPLANTABLE OR ATTACHED SENIOR FRONT END WEB DEVELOPER: No RADIOLOGY DEPARTMENT: General X-ray: Exam(s) Completed: Chest X-Ray PERIPHERAL IV DATA: Not applicable SIGNED BY: RONALDO Calloway) November 27, 2023 10:04 AM documented [facility]24 NoteHNO ID: [id number] Author: MILADY DONNELLY RT (R) Service: Radiology Author Type: Technologist Type: Progress Notes Filed: 11/27/2023 10:10 Note Text: Radiology Service Progress Note PATIENT NAME: Sohail Thompson DATE OF SERVICE: November 27, 2023 TIME: 10:04 AM PATIENT IDENTITY VERIFICATION COMPLETED USING TWO (2) IDENTIFIERS: Name and Date of confirmed by patient verbally. FALL SCREENING: Has the patient had 2 falls in the last year or 1 fall with injury or currently using an Ambulatory Assistive Device (Walker, Cane, Wheelchair, Crutches, etc.)? No PATIENT GENDER DATA: Male PATIENT RELEVANT IMPLANT DATA REVIEWED: Yes PATIENT PRESENTS WITH AN IMPLANTABLE OR ATTACHED SENIOR FRONT END WEB DEVELOPER: No RADIOLOGY DEPARTMENT: General X-ray: Exam(s) Completed: Chest X-Ray PERIPHERAL IV DATA: Not applicable SIGNED BY: RONALDO Calloway) November 27, 2023 10:04 [facility]06-17-2024 NoteHNO ID: [id number] Author: VANESSA GRULLON APRN.VECTOR CONTROL SPECIALIST Service: ? Author Type: Nurse Practitioner Type: Progress Notes Filed: 11/27/2023 10:53 Note Text: Subjective HPI HPI Sohail Thompson is a 58 year old male who presents today for CC of cough, congestion. This started few weeks ago, seen in [facility] care dx pneumonia rx for augmentin and doxy 11/15. Has. Symptoms are worsened by nothing. Nonsmoker. Denies asthma. S/s are improving but not going away. .Patient presents with: Cough: Congestion . PAST MEDICAL HISTORY Diagnosis Date Gout High cholesterol Hypertension Neuropathy Type II or unspecified type diabetes mellitus without mention of complication, not stated as uncontrolled PAST SURGICAL HISTORY Procedure Laterality Date COLONOSCOPY 01/03/2022 repeat 10 years COLONOSCOPY SCREENING FOOT SURGERY HX PAST SURGICAL HISTORY OF 06/12/2005 Removal of infectious mass Rt groin ALLERGIES Patient has no known allergies. MEDICATIONS predniSONE (DELTASONE) 10 mg tablet Take 4 tabs daily for 3 days, then 2 tabs daily for 3 days, then 1 tab daily for 3 days with food. benzonatate (TESSALON PERLES) 100 mg capsule Take 1 capsule by mouth three times a day as needed for cough. amLODIPine-Atorvastatin 10-10 mg per tablet lisinopril (ZESTRIL) 5 mg tablet Magnesium Oxide 500 mg magnesium tab Take by mouth. rosuvastatin (CRESTOR) 10 mg tablet Take 10 mg by mouth once daily. allopurinol (ZYLOPRIM) 100 mg tablet Take 100 mg by mouth once daily. amLODIPine (NORVASC) 10 mg tablet Take 10 mg by mouth once daily. apixaban (ELIQUIS) 5 mg tab(s) Cinnamon Bark (CINNAMON) 500 mg cap empagliflozin (JARDIANCE) 25 mg tablet icosapent ethyl (VASCEPA) 1 gram capsule insulin detemir (LEVEMIR FLEXTOUCH U-100 INSULN SUBCUTANEOUS) icosapent ethyl (VASCEPA) 1 gram capsule Take 2 g by mouth twice daily with meals. sodium sulfate-potassium sulfate-magnesium sulfate (SUPREP BOWEL PREP KIT) 17.5-3.13-1.6 gram oral liquid Take according to instructions given with bowel prep kit metFORMIN 500 mg tablet Take 1,000 mg by mouth twice daily with meals. carvedilol (COREG) 25 mg tablet (Patient not taking: Reported on 11/27/2023) FAMILY HISTORY Problem Relation Age of Onset Diabetes Father Heart Father Heart Paternal Grandfather Diabetes Paternal Grandfather Social History Tobacco Use Smoking status: Never Smokeless tobacco: Never Vaping Use Vaping Use: Never used Substance Use Topics Alcohol use: Never Drug use: Never Review of Systems Constitutional: Negative for fever. HENT: Negative for congestion, ear pain, nosebleeds and sore throat. Respiratory: Positive for cough and wheezing. Negative for shortness of breath. Cardiovascular: Negative for chest pain. Musculoskeletal: Negative for neck pain. Objective Blood pressure 144/76, pulse 101, temperature 37 ?C (98.6 ?F), resp. rate 16, weight (!) 196 kg (432 lb 1.6 oz), SpO2 96%. Physical Exam Constitutional: General: He is not in acute distress. Appearance: He is not toxic-appearing or diaphoretic. HENT: Head: Normocephalic and atraumatic. Cardiovascular: Rate and Rhythm: Normal rate and regular rhythm. Heart sounds: Normal heart sounds, S1 normal and S2 normal. Pulmonary: Effort: Pulmonary effort is normal. Breath sounds: Wheezing (scattered bilat) present. No decreased breath sounds, rhonchi or rales. Neurological: Mental Status: He is alert and oriented to person, place, and time. Gait: Gait is intact. ASSESSMENT/PLAN: 1. Wheezing - ICD9: 786.07, ICD10: R06.2 (primary diagnosis) I advised trying inhaler first without steroid If s/s persist add in steroid. -If you experience chest pain/shortness of breath go to ER Advised to make appointment with pcp next week for f/u . - ALBUTEROL SULFATE HFA 90 MCG/ACTUATION AEROSOL INHALER - PREDNISONE 20 MG TABLET 2. Subacute cough - ICD9: 786.2, ICD10: R05.2 - XR CHEST 2V FRONTAL/LAT IMPRESSION: No acute radiographic abnormality. Dictated by : NATIVIDAD DAMIAN MD - ALBUTEROL SULFATE HFA 90 MCG/ACTUATION AEROSOL INHALER - PREDNISONE 20 MG TABLET Vanessa Grullon APRN.[facility]06-17-2024 History of Present illness Narrative* Vanessa Grullon APRN.VECTOR CONTROL SPECIALIST - 11/27/2023 9:28 AM EDT Subjective HPI HPI Sohail Thompson is a 58 year old male who presents today for CC of cough, congestion. This started few weeks ago, seen in express care dx pneumonia rx for augmentin and doxy 11/15. Has. Symptoms areworsened by nothing. Nonsmoker. Denies asthma. S/s are improving but not going away. .Patient presents with: Cough: Congestion . PAST MEDICAL HISTORY Diagnosis Date Gout High cholesterol Hypertension Neuropathy Type II or unspecified type diabetes mellitus without mention of complication, not stated as uncontrolled PAST SURGICAL HISTORY Procedure Laterality Date COLONOSCOPY 01/03/2022 repeat 10 years COLONOSCOPY SCREENING FOOT SURGERY HX PAST SURGICAL HISTORY OF 06/12/2005 Removal of infectious mass Rt groin ALLERGIES Patient has no known allergies. MEDICATIONS predniSONE (DELTASONE) 10 mg tablet Take 4 tabs daily for 3 days, then 2 tabs daily for 3 days, then 1 tab daily for 3 days with food. benzonatate (TESSALON PERLES) 100 mg capsule Take 1 capsule by mouth three times a day as needed for cough. amLODIPine-Atorvastatin 10-10 mg per tablet lisinopril (ZESTRIL) 5 mg tablet Magnesium Oxide 500 mg magnesium tab Take by mouth. rosuvastatin (CRESTOR) 10 mg tablet Take 10 mg by mouth once daily. allopurinol (ZYLOPRIM) 100 mg tablet Take 100 mg by mouth once daily. amLODIPine (NORVASC) 10 mg tablet Take 10 mg by mouth once daily. apixaban (ELIQUIS) 5 mg tab(s) Cinnamon Bark (CINNAMON) 500 mg cap empagliflozin (JARDIANCE) 25 mg tablet icosapent ethyl (VASCEPA) 1 gram capsule insulin detemir (LEVEMIR FLEXTOUCH U-100 INSULN SUBCUTANEOUS) icosapent ethyl (VASCEPA) 1 gram capsule Take 2 g by mouth twice daily with meals. sodium sulfate-potassium sulfate-magnesium sulfate (SUPREP BOWEL PREP KIT) 17.5-3.13-1.6 gram oral liquid Take according to instructions given with bowel prep kit metFORMIN 500 mg tablet Take 1,000 mg by mouth twice daily with meals. carvedilol (COREG) 25 mg tablet (Patient not taking: Reported on 11/27/2023) FAMILY HISTORY Problem Relation Age of Onset Diabetes Father Heart Father Heart Paternal Grandfather Diabetes Paternal Grandfather Social History Tobacco Use Smoking status: Never Smokeless tobacco: Never Vaping Use Vaping Use: Never used Substance Use Topics Alcohol use: Never Drug use: Never Review of Systems Constitutional: Negative for fever. HENT: Negative for congestion, ear pain, nosebleeds and sore throat. Respiratory: Positive for cough and wheezing. Negative for shortness of breath. Cardiovascular: Negative for chest pain. Musculoskeletal: Negative for neck pain. Objective Blood pressure 144/76, pulse 101, temperature 37 C (98.6 F), resp. rate 16, weight (!) 196 kg (432 lb 1.6 oz), SpO2 96%. Physical Exam Constitutional: General: He is not in acute distress. Appearance: He is not toxic-appearing or diaphoretic. HENT: Head: Normocephalic and atraumatic. Cardiovascular: Rate and Rhythm: Normal rate and regular rhythm. Heart sounds: Normal heart sounds, S1 normal and S2 normal. Pulmonary: Effort: Pulmonary effort is normal. Breath sounds: Wheezing (scattered bilat) present. No decreased breath sounds, rhonchi or rales. Neurological: Mental Status: He is alert and oriented to person, place, and time. Gait: Gait is intact. ASSESSMENT/PLAN: 1. Wheezing - ICD9: 786.07, ICD10: R06.2 (primary diagnosis) I advised trying inhaler first without steroid If s/s persist add in steroid. -If you experience chest pain/shortness of breath go to ER Advised to make appointment with pcp next week for f/u . - ALBUTEROL SULFATE HFA 90 MCG/ACTUATION AEROSOL INHALER - PREDNISONE 20 MG TABLET 2. Subacute cough - ICD9: 786.2, ICD10: R05.2 - XR CHEST 2V FRONTAL/LAT IMPRESSION: No acute radiographic abnormality. Dictated by : NATIVIDAD DAMIAN MD - ALBUTEROL SULFATE HFA 90 MCG/ACTUATION AEROSOL INHALER - PREDNISONE 20 MG TABLET Vanessa Grullon APRN.VECTOR CONTROL SPECIALIST documented [facility] Telephone encounter Note * Telephone Encounter - Elisa Celis APRN.RAKESH - 11/16/2023 11:11 AM EDT Reached out and spoke with patient. Discussed hand washing and disease prevention. Verbalized understanding. [facility]06-06-2024 Miscellaneous Notes* Telephone Encounter - Elisa Celis APRN.CNP - 11/16/2023 11:11 AM EDT Reached out and spoke with patient. Discussed hand washing and disease prevention. Verbalized understanding. * Telephone Encounter - Lynda Bauer RN - 11/16/2023 10:56 AM EDT Pt called in and was asking if his pneumonia was contagious. I let him know I would send a message through to provider and have them get back to him. Pt is asking when he can got back to work. He states he is off work today for a dentist appointment. Please call and advise Pt. documented in this encounterTr[facility]06-[facility]-2024 Telephone encounter Note * Telephone Encounter - Lynda Bauer RN - 11/16/2023 10:56 AM EDT Pt called in and was asking if his pneumonia was contagious. I let him know I would send a message through to provider and have them get back to him. Pt is asking when he can got back to work. He states he is off work today for a dentist appointment. Please call and advise Pt. [facility]06-06-2024 History of Present illness Narrative* Willie Saleh RT(R) - 11/16/2023 9:10 AM EDT Radiology Service Progress Note PATIENT NAME: Sohail Thompson DATE OF SERVICE: November 16, 2023 TIME: 9:04 AM PATIENT IDENTITY VERIFICATION COMPLETED USING TWO (2) IDENTIFIERS: Name and Date of confirmedby patient verbally. FALL SCREENING: Has the patient had 2 falls in the last year or 1 fall with injury or currently using an Ambulatory Assistive Device (Walker, Cane, Wheelchair, Crutches, etc.)? No PATIENT GENDER DATA: Male PATIENT RELEVANT IMPLANT DATA REVIEWED: Not Applicable PATIENT PRESENTS WITH AN IMPLANTABLE OR ATTACHED SENIOR FRONT END WEB DEVELOPER: No RADIOLOGY DEPARTMENT: General X-ray: Exam(s) Completed: Chest X-Ray PERIPHERAL IV DATA: Not applicable SIGNED BY: RT Paz(R) November 16, 2023 9:04 AM documented in this encounterTr[facility]06-06-2024 NoteHNO ID: [id number] Author: WILLIE SALEH RT(R) Service: Radiology Author Type: Technologist Type: Progress Notes Filed: 11/16/2023 09:12 Note Text: Radiology Service Progress Note PATIENT NAME: Sohail Thompson DATE OF SERVICE: November 16, 2023 TIME: 9:04 AM PATIENT IDENTITY VERIFICATION COMPLETED USING TWO (2) IDENTIFIERS: Name and Date of confirmed by patient verbally. FALL SCREENING: Has the patient had 2 falls in the last year or 1 fall with injury or currently using an Ambulatory Assistive Device (Walker, Cane, Wheelchair, Crutches, etc.)? No PATIENT GENDER DATA: Male PATIENT RELEVANT IMPLANT DATA REVIEWED: Not Applicable PATIENT PRESENTS WITH AN IMPLANTABLE OR ATTACHED SENIOR FRONT END WEB DEVELOPER: No RADIOLOGY DEPARTMENT: General X-ray: Exam(s) Completed: Chest X-Ray PERIPHERAL IV DATA: Not applicable SIGNED BY: RT Paz(R) November 16, 2023 9:04 [facility]06-06-2024 NoteHNO ID: [id number] Author: ELISA CELIS APRN.VECTOR CONTROL SPECIALIST Service: ? Author Type: Nurse Practitioner Type: Progress Notes Filed: 11/16/2023 10:44 Note Text: This note was created using NoteWriter. Subjective Sohail Thompson is a 58 year old male. Anatoly Thompson is a 58 year old male with a PMH of TONYA, T2DM, presenting today with complaints of a productive cough for 1.5 weeks. He states he abruptly started to feel garbage in his lungs and was able to hear audible crackles. He has also been producing green sputum. It is a constant cough. He originally had a sore throat but it has since resolved. He does complain of his diaphragm hurting when he has coughing fits. He has taken Nyquil for 1 week to no relief. No aggravating factors. He wears a BiPAP at night for his TONYA. No hx of COPD or asthma. He is not a smoker. He recently had an upper left arm abscess removed and was originally prescribed doxycycline and keflex, but switched to bactrim after 2 days. Finished taking his bactrim a few days ago. Endorses shortness of breath and diaphoresis, stating he has been waking up in a pool of sweat for the last couple days. Pertinent negatives: -fever -chills -n/v/d -chest pain Pertinent positives: +shortness of breath +cough +sore throat +diaphoresis +audible lung crackles The history is provided by the snf. Cough This is a new problem. The current episode started more than 1 week ago. The problem occurs constantly. The problem has been gradually worsening. The cough is Productive of sputum (green sputum). There has been no fever. Associated symptoms include sweats, sore throat and shortness of breath. Pertinent negatives include no chest pain, no chills, no weight loss, no ear congestion, no ear pain, no headaches, no rhinorrhea, no myalgias, no wheezing and no eye redness. Treatments tried: Nyquil. The treatment provided no relief. He is not a smoker. His past medical history does not include bronchitis, pneumonia, bronchiectasis, COPD, emphysema or asthma. PAST MEDICAL HISTORY Diagnosis Date Gout High cholesterol Hypertension Neuropathy Type II or unspecified type diabetes mellitus without mention of complication, not stated as uncontrolled PAST SURGICAL HISTORY Procedure Laterality Date COLONOSCOPY 01/03/2022 repeat 10 years COLONOSCOPY SCREENING FOOT SURGERY HX PAST SURGICAL HISTORY OF 06/12/2005 Removal of infectious mass Rt groin ALLERGIES Patient has no known allergies. MEDICATIONS amLODIPine-Atorvastatin 10-10 mg per tablet lisinopril (ZESTRIL) 5 mg tablet Magnesium Oxide 500 mg magnesium tab Take by mouth. rosuvastatin (CRESTOR) 10 mg tablet Take 10 mg by mouth once daily. allopurinol (ZYLOPRIM) 100 mg tablet Take 100 mg by mouth once daily. amLODIPine (NORVASC) 10 mg tablet Take 10 mg by mouth once daily. apixaban (ELIQUIS) 5 mg tab(s) Cinnamon Bark (CINNAMON) 500 mg cap empagliflozin (JARDIANCE) 25 mg tablet icosapent ethyl (VASCEPA) 1 gram capsule Take 2 g by mouth twice daily with meals. sodium sulfate-potassium sulfate-magnesium sulfate (SUPREP BOWEL PREP KIT) 17.5-3.13-1.6 gram oral liquid Take according to instructions given with bowel prep kit metFORMIN 500 mg tablet Take 1,000 mg by mouth twice daily with meals. predniSONE (DELTASONE) 10 mg tablet Take 4 tabs daily for 3 days, then 2 tabs daily for 3 days, then 1 tab daily for 3 days with food. benzonatate (TESSALON PERLES) 100 mg capsule Take 1 capsule by mouth three times a day as needed for cough. carvedilol (COREG) 25 mg tablet (Patient not taking: Reported on 10/28/2023) icosapent ethyl (VASCEPA) 1 gram capsule (Patient not taking: Reported on 12/20/2021 ) insulin detemir (LEVEMIR FLEXTOUCH U-100 INSULN SUBCUTANEOUS) FAMILY HISTORY Problem Relation Age of Onset Diabetes Father Heart Father Heart Paternal Grandfather Diabetes Paternal Grandfather Social History Tobacco Use Smoking status: Never Smokeless tobacco: Never Vaping Use Vaping Use: Never used Substance Use Topics Alcohol use: Never Drug use: Never Review of Systems Constitutional: Positive for diaphoresis. Negative for chills, fatigue, fever and weight loss. HENT: Positive for sore throat. Negative for congestion, ear discharge, ear pain, postnasal drip, rhinorrhea, sinus pressure, sinus pain, sneezing and trouble swallowing. Eyes: Negative for pain, discharge, redness and itching. Respiratory: Positive for cough and shortness of breath. Negative for chest tightness, wheezing and stridor. Audible crackles Cardiovascular: Negative for chest pain and palpitations. Gastrointestinal: Negative for abdominal pain, constipation, diarrhea, nausea and vomiting. Musculoskeletal: Negative for myalgias. Allergic/Immunologic: Negative for environmental allergies, food allergies and immunocompromised state. Neurological: Negative for headaches. Hematological: Negati (more content not included)...[facility] 11-16-2023 History of Present illness Narrative* Elisa Celis APRN.[facility] - 11/16/2023 8:54 AM EDT This note was created using [employer]. Subjective Sohail Thompson is a 58 year old male. Anatoly Thompson is a 58 year old male with a PMH of TONYA, T2DM, presenting today with complaints of a productive cough for 1.5 weeks. He states he abruptly started to feel garbage in his lungs and was able to hear audible crackles. He has also been producing green sputum. It is a constant cough. He originally had a sore throat but it has since resolved. He does complain of his diaphragm hurting whenhe has coughing fits. He has taken Nyquil for 1 week to no relief. No aggravating factors. He wearsa BiPAP at night for his TONYA. No hx of COPD or asthma. He is not a smoker. He recently had an upperleft arm abscess removed and was originally prescribed doxycycline and keflex, but switched to bactrim after 2 days. Finished taking his bactrim a few days ago. Endorses shortness of breath and diaphoresis, stating he has been waking up in a pool of sweat for the last couple days. Pertinent negatives: -fever -chills -n/v/d -chest pain Pertinent positives: +shortness of breath +cough +sore throat +diaphoresis +audible lung crackles The history is provided by the snf. Cough This is a new problem. The current episode started more than 1 week ago. The problem occurs constantly. The problem has been gradually worsening. The cough is Productive of sputum (green sputum). There has been no fever. Associated symptoms include sweats, sore throat and shortness of breath. Pertinent negatives include no chest pain, no chills, no weight loss, no ear congestion, no ear pain, no headaches, no rhinorrhea, no myalgias, no wheezing and no eye redness. Treatments tried: Nyquil. Thetreatment provided no relief. He is not a smoker. His past medical history does not include bronchitis, pneumonia, bronchiectasis, COPD, emphysema or asthma. PAST MEDICAL HISTORY Diagnosis Date Gout High cholesterol Hypertension Neuropathy Type II or unspecified type diabetes mellitus without mention of complication, not stated as uncontrolled PAST SURGICAL HISTORY Procedure Laterality Date COLONOSCOPY 01/03/2022 repeat 10 years COLONOSCOPY SCREENING FOOT SURGERY HX PAST SURGICAL HISTORY OF 06/12/2005 Removal of infectious mass Rt groin ALLERGIES Patient has no known allergies. MEDICATIONS amLODIPine-Atorvastatin 10-10 mg per tablet lisinopril (ZESTRIL) 5 mg tablet Magnesium Oxide 500 mg magnesium tab Take by mouth. rosuvastatin (CRESTOR) 10 mg tablet Take 10 mg by mouth once daily. allopurinol (ZYLOPRIM) 100 mg tablet Take 100 mg by mouth once daily. amLODIPine (NORVASC) 10 mg tablet Take 10 mg by mouth once daily. apixaban (ELIQUIS) 5 mg tab(s) Cinnamon Bark (CINNAMON) 500 mg cap empagliflozin (JARDIANCE) 25 mg tablet icosapent ethyl (VASCEPA) 1 gram capsule Take 2 g by mouth twice daily with meals. sodium sulfate-potassium sulfate-magnesium sulfate (SUPREP BOWEL PREP KIT) 17.5-3.13-1.6 gram oral liquid Take according to instructions given with bowel prep kit metFORMIN 500 mg tablet Take 1,000 mg by mouth twice daily with meals. predniSONE (DELTASONE) 10 mg tablet Take 4 tabs daily for 3 days, then 2 tabs daily for 3 days, then 1 tab daily for 3 days with food. benzonatate (TESSALON PERLES) 100 mg capsule Take 1 capsule by mouth three times a day as needed for cough. carvedilol (COREG) 25 mg tablet (Patient not taking: Reported on 10/28/2023) icosapent ethyl (VASCEPA) 1 gram capsule (Patient not taking: Reported on 12/20/2021 ) insulin detemir (LEVEMIR FLEXTOUCH U-100 INSULN SUBCUTANEOUS) FAMILY HISTORY Problem Relation Age of Onset Diabetes Father Heart Father Heart Paternal Grandfather Diabetes Paternal Grandfather Social History Tobacco Use Smoking status: Never Smokeless tobacco: Never Vaping Use Vaping Use: Never used Substance Use Topics Alcohol use: Never Drug use: Never Review of Systems Constitutional: Positive for diaphoresis. Negative for chills, fatigue, fever and weight loss. HENT: Positive for sore throat. Negative for congestion, ear discharge, ear pain, postnasal drip, rhinorrhea, sinus pressure, sinus pain, sneezing and trouble swallowing. Eyes: Negative for pain, discharge, redness and itching. Respiratory: Positive for cough and shortness of breath. Negative for chest tightness, wheezing andstridor. Audible crackles Cardiovascular: Negative for chest pain and palpitations. Gastrointestinal: Negative for abdominal pain, constipation, diarrhea, nausea and vomiting. Musculoskeletal: Negative for myalgias. Allergic/Immunologic: Negative for environmental allergies, food allergies and immunocompromised state. Neurological: Negative for headaches. Hematological: Negative for adenopathy. Psychiatric/Behavioral: Negative for agitation and behavioral problems. Objective BP 138/78 Pulse 78 Temp 36.7 C (98 F) Resp 16 Wt (!) 196 kg (432 lb 1.6 oz) SpO2 96% BMI 51.24 kg/m Physical Exam Vitals and nursing note reviewed. Constitutional: General: He is not in acute distress. Appearance: He is obese. He is not toxic-appearing. HENT: Head: Normocephalic and atraumatic. Right Ear: Hearing, ear canal and external ear normal. No tenderness. Tympanic membrane is erythematous. Left Ear: Hearing, ear canal and external ear normal. No tenderness. Tympanic membrane is erythematous. Nose: Nose normal. No nasal tenderness, congestion or rhinorrhea. Mouth/Throat: Pharynx: Uvula midline. Posterior oropharyngeal erythema present. No pharyngeal swelling, oropharyngeal exudate or uvula swelling. Tonsils: No tonsillar exudate or tonsillar abscesses. Eyes: General: Right eye: No discharge. Left eye: No discharge. Cardiovascular: Rate and Rhythm: Normal rate and regular rhythm. Heart sounds: Normal heart sounds. No murmur heard. No friction rub. No gallop. Pulmonary: Effort: Pulmonary effort is normal. No accessory muscle usage, respiratory distress or retractions. Breath sounds: Examination of the right-upper field reveals wheezing and rhonchi. Examination of the left-upper field reveals wheezing and rhonchi. Examination of the right-middle field reveals wheezing and rhonchi. Examination of the left-middle field reveals wheezing and rhonchi. Wheezing and rhonchi present. Comments: Expiratory wheezing. Rhonchi in lung kendall clear after coughing. Not in respiratory distress. No accessory muscle usage or retractions. Normal effort. Chest: Chest wall: No tenderness. Musculoskeletal: Cervical back: No tenderness. Lymphadenopathy: Cervical: No cervical adenopathy. Skin: General: Skin is warm and dry. Neurological: Mental Status: He is alert. Psychiatric: Mood and Affect: Mood normal. Behavior: Behavior normal. Thought Content: Thought content normal. Judgment: Judgment normal. Assessment and Plan ASSESSMENT/PLAN: 1. Community acquired pneumonia of left lung, unspecified part of lung - ICD9: 486, ICD10: J18.9 (primary diagnosis) Persistent cough x 1.5wk. Hears crackles, coughing up green mucus. SOB, diaphoresis. Auscultated expiratory wheezes and rhonchi. CXR shows - Streaky densities in the left infrahilar region may be due to atelectasis or infiltrate Given findings and clinical presentation will cover for pneumonia. Rx doxycycline and Augmentin. Red flags discussed Follow up with PCP next week. 2. Acute cough - ICD9: 786.2, ICD10: R05.1 Contribute to pneumonia RX Belkis Younger RX Prednisone taper, instructed to monitor BS Magali Rueda TEACHING PROVIDER (Physician/PA/CORPORATE AUDITOR) NOTE OF PERSONAL INVOLVEMENT IN CARE: I have personally seen and examined the patient and performed the medical decision-making components. I have reviewed the Advanced Practice Registered Nurse (CORPORATE AUDITOR) Student's documentation and verified the findings in the note as written. Any additions or changes are noted in bold/italics. Signature: Elisa Celis Date: 11/16/2023 Time: 10:44 AM [facility] NoteHNO ID: [id number] Author: GILL SCOTT PA-C Service: ? Author Type: Physician Coding Educator Type: Progress Notes Filed: 10/28/2023 11:10 Note Text: This note was created using [employer]. Subjective Sohail Thompson is a 57 year old male. HPI Presents with a chief complaint of an infection on his left shoulder area. This has been going on for 2 to 3 days. He had pulled a skin tag off as he thought it was a hernandez. He denies fever or chills. He has had abscesses previously and skin infections. He is diabetic. No fever or chills. Review of Systems Constitutional: Negative. HENT: Negative. Respiratory: Negative. Cardiovascular: Negative. Gastrointestinal: Negative. Skin: Skin infection left shoulder/upper back All other systems reviewed and are negative. PAST MEDICAL HISTORY Diagnosis Date Gout High cholesterol Hypertension Neuropathy Type II or unspecified type diabetes mellitus without mention of complication, not stated as uncontrolled Current Outpatient Medications Medication Sig Dispense Refill lisinopril (ZESTRIL) 5 mg tablet rosuvastatin (CRESTOR) 10 mg tablet Take 10 mg by mouth once daily. allopurinol (ZYLOPRIM) 100 mg tablet Take 100 mg by mouth once daily. amLODIPine (NORVASC) 10 mg tablet Take 10 mg by mouth once daily. apixaban (ELIQUIS) 5 mg tab(s) Cinnamon Bark (CINNAMON) 500 mg cap empagliflozin (JARDIANCE) 25 mg tablet insulin detemir (LEVEMIR FLEXTOUCH U-100 INSULN SUBCUTANEOUS) icosapent ethyl (VASCEPA) 1 gram capsule Take 2 g by mouth twice daily with meals. metFORMIN 500 mg tablet Take 1,000 mg by mouth twice daily with meals. amLODIPine-Atorvastatin 10-10 mg per tablet Magnesium Oxide 500 mg magnesium tab Take by mouth. doxycycline (VIBRA-TABS) 100 mg tablet Take 1 tablet by mouth two times a day for 7 days. 14 tablet 0 cephALEXin (KEFLEX) 500 mg capsule Take 1 capsule by mouth four times daily for 7 days. 28 capsule 0 carvedilol (COREG) 25 mg tablet (Patient not taking: Reported on 10/28/2023) icosapent ethyl (VASCEPA) 1 gram capsule (Patient not taking: Reported on 12/20/2021 ) sodium sulfate-potassium sulfate-magnesium sulfate (SUPREP BOWEL PREP KIT) 17.5-3.13-1.6 gram oral liquid Take according to instructions given with bowel prep kit 1 Kit 0 No current facility-administered medications for this visit. PAST SURGICAL HISTORY Procedure Laterality Date COLONOSCOPY 01/03/2022 repeat 10 years COLONOSCOPY SCREENING FOOT SURGERY HX PAST SURGICAL HISTORY OF 06/12/2005 Removal of infectious mass Rt groin FAMILY HISTORY Problem Relation Age of Onset Diabetes Father Heart Father Heart Paternal Grandfather Diabetes Paternal Grandfather Social History Tobacco Use Smoking status: Never Smokeless tobacco: Never Vaping Use Vaping Use: Never used Substance Use Topics Alcohol use: Never Drug use: Never Objective BP 132/82 Pulse 102 Temp 37.3 ?C (99.2 ?F) Resp 18 Wt (!) 199.2 kg (439 lb 2.5 oz) SpO2 95% BMI 52.08 kg/m? Physical Exam Vitals reviewed. Constitutional: Appearance: Normal appearance. HENT: Head: Normocephalic and atraumatic. Musculoskeletal: Arms: Comments: Patient has erythema with induration to the posterior shoulder upper thoracic left back area. There is some faint surrounding erythema. No lymphangitic streaking. No fluctuance palpable superficially. Skin: General: Skin is warm and dry. Neurological: Mental Status: He is alert. Assessment and Plan ASSESSMENT/PLAN: 1. Skin infection - ICD9: 686.9, ICD10: L08.9 Patient has no superficial fluctuance that I can palpate. He also is on Eliquis, would not recommend incision being on blood thinner at [facility] at this point. I will place him on doxycycline and Keflex. Discussed however if this worsens he needs to be seen in the emergency department. I did offer to get him in in 2 days with general surgery however patient declined and will try to follow-up with his PCP. Patient agreeable with this plan. - CONSULT TO GENERAL SURGERY [facility]05-18-[facility]24 History of Present illness Narrative* Gill Scott PA-C - 10/28/2023 11:07 AM EDT Images from the original note were not included. This note was created using [employer]. Subjective Sohail Thompson is a 57 year old male. HPI Presents with a chief complaint of an infection on his left shoulder area. This has been going on for 2 to 3 days. He had pulled a skin tag off as he thought it was a hernandez. He denies fever or chills. He has had abscesses previously and skin infections. He is diabetic. No fever or chills. Review of Systems Constitutional: Negative. HENT: Negative. Respiratory: Negative. Cardiovascular: Negative. Gastrointestinal: Negative. Skin: Skin infection left shoulder/upper back All other systems reviewed and are negative. PAST MEDICAL HISTORY Diagnosis Date Gout High cholesterol Hypertension Neuropathy Type II or unspecified type diabetes mellitus without mention of complication, not stated as uncontrolled Current Outpatient Medications Medication Sig Dispense Refill lisinopril (ZESTRIL) 5 mg tablet rosuvastatin (CRESTOR) 10 mg tablet Take 10 mg by mouth once daily. allopurinol (ZYLOPRIM) 100 mg tablet Take 100 mg by mouth once daily. amLODIPine (NORVASC) 10 mg tablet Take 10 mg by mouth once daily. apixaban (ELIQUIS) 5 mg tab(s) Cinnamon Bark (CINNAMON) 500 mg cap empagliflozin (JARDIANCE) 25 mg tablet insulin detemir (LEVEMIR FLEXTOUCH U-100 INSULN SUBCUTANEOUS) icosapent ethyl (VASCEPA) 1 gram capsule Take 2 g by mouth twice daily with meals. metFORMIN 500 mg tablet Take 1,000 mg by mouth twice daily with meals. amLODIPine-Atorvastatin 10-10 mg per tablet Magnesium Oxide 500 mg magnesium tab Take by mouth. doxycycline (VIBRA-TABS) 100 mg tablet Take 1 tablet by mouth two times a day for 7 days. 14 tablet0 cephALEXin (KEFLEX) 500 mg capsule Take 1 capsule by mouth four times daily for 7 days. 28 capsule 0 carvedilol (COREG) 25 mg tablet (Patient not taking: Reported on 10/28/2023) icosapent ethyl (VASCEPA) 1 gram capsule (Patient not taking: Reported on 12/20/2021 ) sodium sulfate-potassium sulfate-magnesium sulfate (SUPREP BOWEL PREP KIT) 17.5-3.13-1.6 gram oral liquid Take according to instructions given with bowel prep kit 1 Kit 0 No current facility-administered medications for this visit. PAST SURGICAL HISTORY Procedure Laterality Date COLONOSCOPY 01/03/2022 repeat 10 years COLONOSCOPY SCREENING FOOT SURGERY HX PAST SURGICAL HISTORY OF 06/12/2005 Removal of infectious mass Rt groin FAMILY HISTORY Problem Relation Age of Onset Diabetes Father Heart Father Heart Paternal Grandfather Diabetes Paternal Grandfather Social History Tobacco Use Smoking status: Never Smokeless tobacco: Never Vaping Use Vaping Use: Never used Substance Use Topics Alcohol use: Never Drug use: Never Objective BP 132/82 Pulse 102 Temp 37.3 C (99.2 F) Resp 18 Wt (!) 199.2 kg (439 lb 2.5 oz) SpO2 95% BMI 52.08 kg/m Physical Exam Vitals reviewed. Constitutional: Appearance: Normal appearance. HENT: Head: Normocephalic and atraumatic. Musculoskeletal: Arms: Comments: Patient has erythema with induration to the posterior shoulder upper thoracic left back area. There is some faint surrounding erythema. No lymphangitic streaking. No fluctuance palpable superficially. Skin: General: Skin is warm and dry. Neurological: Mental Status: He is alert. Assessment and Plan ASSESSMENT/PLAN: 1. Skin infection - ICD9: 686.9, ICD10: L08.9 Patient has no superficial fluctuance that I can palpate. He also is on Eliquis, would not recommend incision being on blood thinner at [facility] at this point. I will place him on doxycycline and Keflex. Discussed however if this worsens he needs to be seen in the emergency department. I did offer to get him in in 2 days with general surgery however patient declined and will try to follow-up with his PCP. Patient agreeable with this plan. - CONSULT TO GENERAL SURGERY Gill Scott PA-C documented [facility] Discharge summary Author Hung Nichole [facility] January 18, 2023 11:07am Note Date/Time January 18, 2023 9:2 9am [facility] Medical Records Department [address] [place] [address] Emergency Department Summary 01/18/23 MR#: [id number] Acct: [id number] Name: SOHAIL THOMPSON Rep #:[id number] : 1965 57 From: Hung Nichole MD PCP: Dr. Harry Felder MD Status:RE G ER Location: ED HPI History of Present Illness Chief Complaint: Dizziness Narrative Narrative: Patient presents with vertigo. This started yesterday when he was bending down and then sat up quickly. He describes paroxysms to last a few seconds of spinning sensation when he looks a certain way. He has no vision changes. He has no weakness paresthesias confusion or speech difficulties. He has no disequilibrium. He does have some nausea when these hit. [facility] Medical History (Updated 01/18/23 @ 11:[address] Hung Nichole MD) Arthritis Callus of foot Chronic foot ulcer Diabetes Diabetes type 2, uncontrolled Diabetic foot ulcer Edema, lower extremity Essential hypertension Gout Hyperlipidemia Junctional tachycardia (12/21/20) Morbid obesity Obstructive sleep apnea Perineal abscess Polycythemia vera Scrotum, abscess Type 2 diabetes mellitus with diabetic polyneuropathy Ulcer of toe of right foot Home Medications metformin 1,000 mg tablet 1,000 mg PO BIDCM 04/26/13 [History Last Taken 01/15/15] insulin detemir U-100 100 unit/mL (3 mL) subcutaneous pen 47 units subcut QHS 11/02/17 [History Last Taken Unknown] amlodipine 10 mg tablet 10 mg PO DAILY 30 days #30 tabs 11/09/18 [History Last Taken 03/11/22] empagliflozin 25 mg tablet 25 mg PO DAILY 12/21/20 [History Last Taken 03/11/22] rosuvastatin 10 mg tablet 10 mg PO DAILY 03/01/22 [History Last Taken Unknown] apixaban 5 mg tablet (Eliquis) 5 mg PO BID #180 tabs 04/07/22 [Rx Last Taken Unknown] icosapent ethyl 1 gram capsule (Vascepa) 2 g (2 x 1 gram) PO BID #360 caps 04/07/22 [Rx Last Taken Unknown] allopurinol 100 mg tablet 100 mg PO DAILY 09/20/22 [History Last Taken Unknown] aspirin 81 mg chewable tablet 81 mg PO DAILY 09/20/22 [History Last Taken Unknown] cinnamon bark 500 mg capsule (Cinnamon) 1,000 mg PO DAILY 09/20/22 [History Last Taken Unknown] pantoprazole 40 mg tablet,delayed release 40 mg PO DAILY 09/20/22 [History Last Taken Unknown] metoprolol succinate 25 mg tablet,extended release 24 hr 25 mg PO BID this is a dose increase #60 tabs 01/09/23 [Rx Last Taken Unknown] carbamide peroxide 6.5 % ear drops (Debrox) 5 drp RIGHT EAR DAILY 4 days #15 mL 01/18/23 [Rx Last Taken Unknown] meclizine 25 mg tablet 25 mg PO 4X/DAY PRN PRN Dizziness #30 tabs 01/18/23 [Rx Last Taken Unknown] Allergy/AdvReac Type Severity Reaction Status Date / Time No Known Allergies Allergy Verified 03/01/22 12:21 Family History Other Diabetes Surgical History (Updated 10/13/22 @ 16:34 by Felicia Ibrahim) History of cardiac radiofrequency ablation (09/07/22) History of cardioversion (03/11/22) History of radiofrequency ablation procedure for cardiac arrhythmia (~09/07/22) Social History Smoking Status: Never smoker alcohol intake: never ROS ROS ED ROS Narrative Past medical history: Reviewed Medications: Reviewed Social history: Noncontributory Review of systems: All systems negative except as indicated General: No fever Eyes: No visual changes ENT: No upper airway congestion, normal voice. He feels like his right ear is clogged up. Neck: No neck pain Cardiovascular: No chest pain Respiratory: No shortness of breath or cough Gastrointestinal: No abdominal pain, nausea vomiting or diarrhea Genitourinary: No dysuria Musculoskeletal: Denies myalgias no difficulty with ambulation Skin: No rash Neurological: Vertigo. Otherwise no other neurological symptoms. Psych: No recent behavioral changes Hematologic: No easy bleeding or easy bruising EXAM Physical Exam Narrative Exam Narrative: Physical exam General: Patient appears relatively comfortable. Head: Normocephalic, Atraumatic Eyes: Conjunctiva not pale. Pupils are equal and reactive. Patient has rightward saccade. ENT: Moist mucous membranes. Some congestion of the left ear. Right ear has full cerumen impaction and I cannot see the TM. Neck: Supple, Nontender, No lymphadenopathy Cardiovascular: Regular rate, Regular rhythm Respiratory: No distress, CTA bilaterally Abdomen: Soft, Nontender, Nondistended Back: Nontender, Normal Inspection. Negative for: CVA tenderness Extremities: Nontender, No edema Skin: Normal color, No rash Neurological: Alert, Normal Strength, Normal Sensation. Normal cerebellar. Psychological: Normal affect Const Vital Signs: 01/18/23 09:10 01/18/23 09:13 Temperature 97.2 F L Temperature Source Temporal Pulse Rate 72 Respiratory Rate 15 Respiratory Effort Normal Non-Labored Respiratory Pattern Normal Blood Pressure 146/82 H Blood Pressure Mean 103 Pulse Ox 99 Oxygen Delivery Method Room Air MDM MDM MDM Narrative Medical decision making narrative: Patient has paroxysms of vertigo consistent with benign paroxysmal positional vertigo. He has a normal neurological exam and normal CT and CTA other than stenosis of the internal carotid which does not need immediate management, and would not cause any of his symptoms. He will be referred to vascular surgery hewas treated with meclizine and had improvement. At this time I do not believe he has a stroke as far as his etiology. I will refer to ENT. He also has cerumen impaction I will treat that. I talked to him and his who agree with the plan. If anything changes he is to return. At this time I do not believe he meets admission criteria I thought about admission but I believe he can get an outpatient workup. Lab Data Labs: Laboratory Results - last 24 hr 01/18/23 09:17 WBC 8.6 RBC 6.21 H Hgb 17.8 H Hct 52.9 MCV 85.2 MCH 28.7 MCHC 33.6 RDW Std Deviation 40.4 RDW Coeff of Steven 13.2 Plt Count 224 MPV 9.1 Immature Gran % (Auto) 1.000 H Neut % (Auto) 67.5 Lymph % (Auto) 18.2 L [place] % (Auto) 11.2 H Eos % (Auto) 1.5 Baso % (Auto) 0.6 Absolute Neuts (auto) 5.8 Absolute Lymphs (auto) 1.57 Nucleated RBC % 0 Sodium 138 Potassium 4.4 Chloride 104 Carbon Dioxide 24.0 Anion Gap 10 BUN 16 Creatinine 1.10 Estim Creat Clear Calc 95.63 Est GFR (MDRD) Af Amer 89 Est GFR (MDRD) Non-Af 74 BUN/Creatinine Ratio 14.5 Glucose 135 H Calcium 9.1 Total Bilirubin 0.60 AST 17 ALT 20 Alkaline Phosphatase 71 Troponin I High Sens 5 Total Protein 7.4 Albumin 3.6 Globulin 3.8 Albumin/Globulin Ratio 0.9 Radiography Diagnostic Testing: Clinical Impression(s) from Imaging Studies Head/Neck CTA 01/18/23 09:25 IMPRESSION: Partially calcified and soft plaque at the origin of the left internal carotid artery causing greater than 70% luminal narrowing. Electronically Signed: Arsen Pena MD at 10:43 EDT , Rhythm Strip Rhythm Strip: Sinus Rhythm Rate: 70 Ectopy: None EKG Initial EKG: Comments: Sinus rhythm with a rate of 70. AR interval is somewhat prolonged with a first-degree AV block. Normal QTc. Normal morphology without any evidence of ischemia. Interpreted by emergency doctor Discharge Plan Triage Chief Complaint: Dizziness ED Provider: Hung Nichole Dx/Rx/DC Orders Clinical Impression: Cerumen impaction, Internal carotid artery stenosis, Vertigo Instructions: Inner Ear Balance, Vertigo Inner Ear Problems Prescriptions: New Debrox 6.5 % drops 5 drp RIGHT EAR DAILY 4 Days Qty: 15 0RF meclizine 25 mg tablet 25 mg PO 4X/DAY PRN PRN (Reason: Dizziness) Qty: 30 0RF No Action amlodipine 10 mg tablet 10 mg PO DAILY 30 Days Qty: 30 rosuvastatin 10 mg tablet 10 mg PO DAILY Patient Comments: Take 1 tablet by mouth daily allopurinol 100 mg tablet 100 mg PO DAILY Patient Comments: Take 1 tablet by mouth daily pantoprazole 40 mg tablet,delayed release (DR/EC) 40 mg PO DAILY aspirin 81 mg tablet,chewable 81 mg PO DAILY cinnamon bark [Cinnamon] 500 mg capsule 1,000 mg PO DAILY metformin 1,000 MG tablet 1,000 mg PO BIDCM Patient Comments: DIABETES insulin detemir U-100 100 UNITS/ML insulin pen 47 units subcut QHS Patient Comments: long acting insulin empagliflozin 25 mg tablet 25 mg PO DAILY Eliquis 5 mg tablet 5 mg PO BID Qty: 180 3RF icosapent ethyl [Vascepa] 1 gram capsule 2 g PO BID Qty: 360 3RF metoprolol succinate 25 mg tablet extended release 24 hr 25 mg PO BID Qty: 60 11RF Primary Care Provider: Harry Felder Referrals: Ludwig Sprague MD [Med Staff - Active Staff] - 3-5 Days Harry Felder MD [Primary Care Provider] - 3-5 Days Roland Mancia MD [Med Staff - Active Staff] - 3-5 Days Disposition Disposition: Home, Self Care What to do if you have Problems For any increased pain, shortness of breath, bleeding, nausea or vomiting, chestpain, or any unexpected problems, contact your Primary Care Provider. Call [facility] ([phone]) or report to the closest Emergency Room. Call 911 if necessary. 01/18/23 1107 <Electronically signed by Hung Nichole MD> Cosigner Signature (if applicable): CC: Dr. Harry Felder MD ~ Signed [facility] Work Phone: [phone] 101-191307-11-2023 Note* Referral Letter - Kenyon Moya MD - 12/20/2022 1:15 PM EDT December 20, 2022 RE: SOHAIL THOMPSON Thad Auguste MD [address] [place] [address] Dear Thad: Today, I saw Sohail Thompson in routine followup at [facility]. He is a 57-year-old gentleman [...] the advanced atrial myopathy. However, today his AR interval is greater than 300 milliseconds, which [...] any followup appointments. I have asked Mr. Thompson to followup with you, but I certainly would be delighted to see him again if there are any issues. Again, Thad, thank you for referring him to me. Best regards, Kenyon Moya MD Cell Hand Spray Operator, [facility] Cardiac Electrophysiology cc: MD Aida MONT[address] [place] [address] [facility]07-11-2023 Miscellaneous Notes* Referral Letter - Kenyon Moya MD - 12/20/2022 1:15 PM EDT December 20, 2022 RE: SOHAIL THOMPSON MD [address] [place] [address] Dear Thad: Today, I saw Sohail Thompson in routine followup at [facility]. He is a 57-year-old gentleman [...] the advanced atrial myopathy. However, today his AR interval is greater than 300 milliseconds, which [...] any followup appointments. I have asked Mr. Thompson to followup with you, but I certainly would be delighted to see him again if there are any issues. Again, Thad, thank you for referring him to me. Best regards, Kenyon Moya MD Cell Hand Spray Operator, [facility] Cardiac Electrophysiology cc: HARRY FELDER MD [address] [place] [address] documented in this encounterLouis Stokes [facility]07-11-2023 History of Present illness Narrative* Erika Milagro Little, CORPORATE AUDITOR-VECTOR CONTROL SPECIALIST - 12/20/2022 11:45 AM EDT Sohail Thompson is a 57 y.o. with a history of HTN, morbid obesity, paroxysmal atrial fibrillation s/pDCCv 02/2022. He presents today for 3 month follow up post [facility]ACA PVI and CTI RFA 09/07/2022. He was also started on Sotalol for arrhythmia suppression which has been continued since discharge in August. Cardiac Imaging Reviewed: MCT 11/26/2022: Summary: The patient's monitoring period was [...] better BP control -Follow up with local leather grader Dr. Auguste Pt ID: Sohail Thompson is a 57 y.o. male Chief Complaint [...] UNIT/ML Solution Pen-injector injection Inject 47 Units underthe skin at bedtime. metFORMIN 1000 MG tablet [...] Follow up with Dr. Moya as needed. Erika iLttle APRN-RAKESH 12/20/2022 1:18 PM * Kenyon Moya MD - 12/20/2022 11:45 AM EDT Attending Physician Note (GC) I saw and personally examined this patient with the Fellow/VOICE AND DATA TECHNICIAN/Resident. I have discussed the findings and therapeutic plan with the Fellow/VOICE AND DATA TECHNICIAN/Resident. I agree with the history, physical examination and medical decisions as outlined. Further comments are added below Subjective & Physical BP 132/77 (BP Location: Left arm, BP Position: Sitting) Pulse 80 Resp 20 Ht 1.956 m (6' 5) Wt (!) 180.5 kg (397 lb 14.4 oz) SpO2 95% BMI 47.18 kg/m Assessment & Plan Patient Active Problem List Diagnosis Longstanding persistent atrial fibrillation High risk medication use Morbid obesity 57 you AFib abnd flutter CV 02/2022 PVI CTI RFA 09/01 HTN DM TONYA Sotalol 0 BID Alert & Oriented Kenyon Moya MD 12/20/2022 1:07 PM Cell Hand Spray Operator, [facility]iac Electrophysiology * Archana Roman RN - 12/20/2022 11:45 AM EDT Patient Education Patient education regarding the following topic(s) was provided on 12/20/2022: medication changes (Stop sotalol - take one tablet daily for three days then discontinue medication). Those in attendance for the education included: patient and spouse. Barriers in providing the education included: none. The following methods were used in providing the education: explanation and handout. [facility] handoutsgiven included: After visit summary. The response of those in attendance was: states/identifies education topic. The following Clinical Intervention(s) occurred during today s visit: None documented in this encounterLouis Stokes Cleveland [facility] Center07-11-2023 Instructions* Patient Instructions* Archana Roman RN - 12/20/2022 11:45 AM EDT Stop sotalol - take one tablet daily for three days then discontinue medication --your antiarrhythmic clinic appt in March has been canceled. Otherwise continue current medications, including apixaban Follow-up appointment may be scheduled/determined in as needed with Dr. Moya Thank you for choosing [facility] for your Heart Care. [employer]uck is an available tool to securely access your online medical information. Please ask to enroll during any [facility] appointment. Once enrolled, your MD reviewed test results will be available for you to review at your convenience. [facility] messaging is reserved for non urgent messages and responses may take a few days. Call the [facility] at [phone] option 6, option 3 for urgent EP questions/concerns M-F 8 to 4:00 Call Scheduling for any appointment/procedure verification or changes [phone] If we are sending you an Event monitor and you have not received it when expected, please call the office. For any questions/problems with your monitor please call Bryan at [phone]. [facility] testing and procedure patient Instructions may be obtained at: [email or web address] Insurance Concerns: [email or web address] documented in this encounterOSU [facility] Hospital course Narrative* HOLDEN Bruno - 09/10/2022 9:37 AM EDT Discharge Summary Name: Sohail Thompson Age: 56 y.o. Birthday: 1965 Admit Date: 09/07/2022 7:51 AM Discharge Date: 09/10/22 Discharge Unit: [facility] Admission Information Admitting Physician: Kenyon Moya MD Discharge Information Discharge Physician: Kellie Rebolledo MD/Peggy Fuller CNP Problem List Active Hospital Problems Diagnosis Longstanding persistent atrial fibrillation High risk medication use Morbid obesity Resolved Hospital Problems No resolved problems to display. Brief Summary of Hospital Course for Discharge Summary: Sohail Thompson is a 56 y.o. male with persistent [...] fibrillation. Referred to Dr. Moya with recommendations topursue AF RFA and CTI RFA. He presented [...] continue sotalol 80mg BID. QT/QTc on discharge 434/484ms.Follow up with 30 day event monitor in [...] (Oral) Resp 16 Ht 1.956 m (6' 5) Wt (!) 205.5 kg (453 lb) SpO2 [...] TABS Commonly known as: COREG Follow-up: Harry Felder MD [address] [facility] [id number] Follow up Upcoming Appointments (up to five)-Some appointments for Medical Center outpatient clinics or diagnostic testing locations are not displayed below Provider Department Dept Phone 12/20/2022 11:45 AM Kenyon Moya [facility] Arrive at: Arrive to [facility] Registration Desk [phone] 03/16/2023 1:00 PM [facility] [place] Arrive at: Arrive to 1st Floor Registration [phone] Associated attestation - Kellie Rebolledo MD - 09/10/2022 1:38 PM EDT Electrophysiology attending physician I saw and personally/independently examined this patient with the nurse practitioner on 09/10/2022. We will discharge patient home today. The plan was developed mutually Kellie Rebolledo MD. Professor of Clinical Internal Medicine. [facility] [email or web address] documented in this encounterOSU [facility]03-31-2023 Note* Plan of Care - Malcolm Jones RN - 09/09/2022 11:20 PM EDT Problem: Patient Care Overview Goal: Plan of [...] (reference Arrhythmia/Dysrhythmia (Symptomatic) (Adult) CPG). Outcome: Ongoing [facility]03-31-2023 Miscellaneous Notes* Plan of Care - Malcolm Jones RN - 09/09/2022 11:20 PM EDT Problem: Patient Care Overview Goal: Plan of [...] (reference Arrhythmia/Dysrhythmia (Symptomatic) (Adult) CPG). Outcome: Ongoing * Plan of Care - Clau oMndragon RN - 09/09/2022 4:49 PM EDT Problem: Arrhythmia/Dysrhythmia (Symptomatic) (Adult) Goal: Signs and Symptoms of Listed Potential Problems Will be Absent, Minimized or Managed (Arrhythmia/Dysrhythmia) Description: Signs and symptoms of listed potential problems will be absent, minimized or managed by discharge/transition of care (reference Arrhythmia/Dysrhythmia (Symptomatic) (Adult) CPG). Outcome: Met This Shift Problem: Patient Care Overview Goal: Plan of Care Review Outcome: Ongoing * Plan of Care - Milka Joe RN - 09/09/2022 1:27 AM EDT Problem: Patient Care Overview Goal: Plan of [...] (reference Arrhythmia/Dysrhythmia (Symptomatic) (Adult) CPG). Outcome: Ongoing * Plan of Care - Clau Mondragon RN - 09/08/2022 6:22 PM EDT Problem: Patient Care Overview Goal: Plan of Care Review Outcome: Ongoing Problem: Arrhythmia/Dysrhythmia (Symptomatic) (Adult) Goal: Signs and Symptoms of Listed Potential Problems Will be Absent, Minimized or Managed (Arrhythmia/Dysrhythmia) Description: Signs and symptoms of listed potential problems will be absent, minimized or managed by discharge/transition of care (reference Arrhythmia/Dysrhythmia (Symptomatic) (Adult) CPG). Outcome: Ongoing * Certification - HOLDEN Ren - 09/08/2022 1:22 PM EDT I certify that this patient requires inpatient services at this time. I anticipate the expected length of stay will include at least two midnights. Current treatment plan includes Initiation of high risk medication Sotalol requiring continuous cardiac monitoring and serial ECGs for 5 doses at BID do sing due to risk of SCD/TdP with prolonged QT/QTc. Plans for post hospitalization care will be discharge to home. * Assessment & Plan Note - HOLDEN Ren - 09/08/2022 12:54 PM EDT Associated Problem(s): Morbid obesity BMI 53.43 Heart healthy carb controlled diet Encourage ambulation Lifestyle and risk factor management are recommended to prevent from recurrent atrial fibrillation including: - Decrease weight. [place] BMI is <30 kg/M2. 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 - Decrease caffeine to no more than 1 cup per day and make sure it is before noon. - Eliminate soft drinks altogether. - Make sure to get 6-8 hours of sleep each night and go to bed at the same time each night within +/- 1 hour. * Assessment & Plan Note - HOLDEN Ren - 09/08/2022 12:49 PM EDT Associated Problem(s): High risk medication use Sotalol [...] up with Dr. Moya in 3-4 months * Assessment & Plan Note - HOLDEN Ren - 09/08/2022 12:44 PM EDT Associated Problem(s): Longstanding persistent atrial fibrillation Symptomatic; recurrent AF/AFl 1 week post cardioversion 02/2022 S/p PVI WACA and CTI RFA on 09/07/22 CHADS-VASc score=5 on Eliquis 5 mg BID QT/QTc prolonging after 3rd dose Decrease Sotalol 80 mg Q12hr and monitor for 2 more doses Remains in NSR w/1st deg AVB * Plan of Care - Milka Joe RN - 09/08/2022 1:31 AM EDT Problem: Patient Care Overview Goal: Plan of Care Review Outcome: Ongoing Goal: Individualization & Mutuality Outcome: Ongoing Goal: Discharge Needs Assessment Outcome: Ongoing Goal: Interdisciplinary Rounds/Family Conf Outcome: Ongoing documented in this encounterLouis Stokes [facility]03-31-2023 Note* Plan of Care - Clau Mondragon RN - 09/09/2022 4:49 PM EDT Problem: Arrhythmia/Dysrhythmia (Symptomatic) (Adult) Goal: Signs and Symptoms of Listed Potential Problems Will be Absent, Minimized or Managed (Arrhythmia/Dysrhythmia) Description: Signs and symptoms of listed potential problems will be absent, minimized or managed by discharge/transition of care (reference Arrhythmia/Dysrhythmia (Symptomatic) (Adult) CPG). Outcome: Met This Shift Problem: Patient Care Overview Goal: Plan of Care Review Outcome: Ongoing [facility]03-31-2023 History of Present illness Narrative* HOLDNE Ren - 09/09/2022 11:47 AM EDT Sohail Thompson was seen on the [facility] EP service today 09/09/2022. Principal Problem: [...] recurrent atrial fibrillation including: - Decrease weight. [place] BMI is <30 kg/M2. In the [place] [...] increase the risk of atrial fibrillation [higher riskof atrial fibrillation in cyclist, cross-country running, [place]] - Abstain/decrease alcohol as to no more [...] (Oral) Resp 16 Ht 1.956 m (6' 5) Wt (!) 205.5 kg (453 lb) Comment: standing, bilateral shoes on SpO2 96% BMI 53.72 kg/m Constitutional: He is awake, alert and in no distress today with a pleasant affect. Chest: lungs clear to auscultation, breath sounds equal and symmetric Cardiovascular: Normal carotid pulses, the JVP is not elevated, regular rate and rhythm; S1 normal,S2 normal, and there are no murmurs, rub [...] 26.8 24.0 - 34.3 sec Final Felicita Walter More, CORPORATE AUDITOR-VECTOR CONTROL SPECIALIST 09/09/2022 11:47 AM Associated attestation - Kellie Rebolledo MD - 09/09/2022 3:25 PM EDT Electrophysiology attending physician I saw and personally/independently examined this patient with the nurse practitioner on 09/09/2022. QTc interval prolonged significantly while on sotalol 120 mg po bid, therefore, we lowered the sotalol dose to sotalol 80 mg po bid. The plan was developed mutually Kellie Rebolledo MD. Professor of Clinical Internal Medicine. [facility] [email or web address] * Marizol Cuevas RN - 09/08/2022 5:27 PM EDT Discharge Planning Patient Assessment Admission Assessment Patient Assessment Completed: Initial Anticipated discharge disposition: Home Reason for Admission: high risk medication Sotalol Is the patient able to participate in the assessment?: Yes Information source: Review of Medical Record Information Source Name/Contact: Sohail Thompson [phone] Demographics Verified and Updated: Yes Has the patient been admitted to any hospital in the last 30 days?: No Advanced Care Planning Has the patient completed Advance Directives?: Completed, Not Available in Medical Record Copy of Advance Directives was requested?: No Legal Next of Kin Does the patient have a Guardian?: No Spouse: Yes Name and Contact information: Sulema Thompson spouse PH [phone] Adult Child(adalgisa), List All Adult Children: (Pt with 4 adult children) Reviewed and Updated in Demographics? : Yes Outpatient Providers Does patient have a primary care physician? : Yes When was the patient's last PCP visit?: > 30 days Does the patient follow any specialists?: Yes Reviewed and updated Care Team?: Yes Patient Care Team: Harry Felder MD as PCP - General (Family Medicine) Thad Auguste MD (Cardiovascular Disease) Environment/Caregivers Is the patient from a facility or skilled nursing?: No Patient lives with: Spouse or Partner [...] Yes Provider or Clinic that manages Anticoagulation?: [facility] [address] - [place] [address] [address] [facility] [address] Communications Clerk Does the patient or customer relations representative express financial concerns? : No Coping/Stress [...] Planning Summary Anticipate discharge home. No previous [facility] needs Anticoagulation- Eliquis Case Management Plan CM to follow for discharge planning needs and coordination. Marizol Stacy RN BSN Clinical Recreational Vehicle Repairer * Marizol Cuevas RN - 09/08/2022 4:31 PM EDT Discharge Planning Patient Assessment Admission Assessment Patient Assessment Completed: Initial Anticipated discharge disposition: Home Reason for Admission: high risk medication Sotalol Is the patient able to participate in the assessment?: Yes Information source: Review of Medical Record Information Source Name/Contact: Sohail Thompson [phone] Demographics Verified and Updated: Yes Has the patient been admitted to any hospital in the last 30 days?: No Advanced Care Planning Has the patient completed Advance Directives?: Completed, Not Available in Medical Record Legal Next of Kin Does the patient have a Guardian?: No Spouse: Yes Name and Contact information: Sulema Thompson spouse [phone] Adult Child(adalgisa), List All Adult Children: (Pt with 4 adult children) Reviewed and Updated in Demographics? : Yes Outpatient Providers Does patient have a primary care physician? : Yes When was the patient's last PCP visit?: > 30 days Does the patient follow any specialists?: Yes Reviewed and updated Care Team?: Yes Patient Care Team: Harry Felder MD as PCP - General (Family Medicine) Thad Auguste MD (Cardiovascular Disease) Environment/Caregivers Is the patient from a facility or skilled nursing?: No Patient lives with: Spouse or Partner [...] Yes Provider or Clinic that manages Anticoagulation?: [facility] [address] [place] [address] [address] [address] Communications Clerk Does the patient or customer relations representative express financial concerns? : No Coping/Stress [...] and coordination. Marizol Stacy RN BSN Clinical Recreational Vehicle Repairer * Felicita More APRN-VECTOR CONTROL SPECIALIST - 09/08/2022 9:00 AM EDT Sohail Thompson was seen on the [facility] EP service today 09/08/2022. Principal Problem: [...] recurrent atrial fibrillation including: - Decrease weight. [place] BMI is <30 kg/M2. In the [facility] [...] increase the risk of atrial fibrillation [higher riskof atrial fibrillation in cyclist, cross-country running, [place]] - Abstain/decrease alcohol as to no more [...] (Oral) Resp 20 Ht 1.956 m (6' 5) Wt (!) 204.4 kg (450 lb 9.6 oz) Comment: standing SpO2 94% BMI 53.43 kg/m Constitutional: He is awake, alert and in no distress today with a pleasant affect. Chest: lungs clear to auscultation, breath sounds equal and symmetric Cardiovascular: Normal carotid pulses, the JVP is not elevated, regular and tachycardic; S1 normal,S2 normal, and there are no murmurs, rub [...] 950 ml Net 2150 ml Recent Labs 03/29/23 0838 09/07/22 0901 09/07/22 0920 09/07/22 2204 [...] 26.8 24.0 - 34.3 sec Final Felicita Watson Sujeyzaynab, CORPORATE AUDITOR-VECTOR CONTROL SPECIALIST 09/08/2022 1:09 PM Associated attestation - Kellie Rebolledo MD - 09/08/2022 3:51 PM EDT Electrophysiology attending physician I saw and personally/independently examined this patient with the nurse practitioner on 09/08/2022. We will start sotalol load. The plan was developed mutually Kellie Rebolledo MD. Professor of Clinical Internal Medicine. [facility] [email or web address] documented in this encounterOSU [facility]03-31-20[facility] Note* Plan of Care - Milka Joe RN - 09/09/2022 1:27 AM EDT Problem: Patient Care Overview Goal: Plan of [...] (reference Arrhythmia/Dysrhythmia (Symptomatic) (Adult) CPG). Outcome: Ongoing [facility]03-30-2023 Note* Plan of Care - Clau Mondragon RN - 09/08/2022 6:22 PM EDT Problem: Patient Care Overview Goal: Plan of Care Review Outcome: Ongoing Problem: Arrhythmia/Dysrhythmia (Symptomatic) (Adult) Goal: Signs and Symptoms of Listed Potential Problems Will be Absent, Minimized or Managed (Arrhythmia/Dysrhythmia) Description: Signs and symptoms of listed potential problems will be absent, minimized or managed by discharge/transition of care (reference Arrhythmia/Dysrhythmia (Symptomatic) (Adult) CPG). Outcome: Ongoing [facility]03-30-2023 Note* Certification - Felicita More APRN-VECTOR CONTROL SPECIALIST - 09/08/2022 1:22 PM EDT I certify that this patient requires inpatient services at this time. I anticipate the expected length of stay will include at least two midnights. Current treatment plan includes Initiation of high risk medication Sotalol requiring continuous cardiac monitoring and serial ECGs for 5 doses at BID do sing due to risk of SCD/TdP with prolonged QT/QTc. Plans for post hospitalization care will be discharge to home. [facility]03-30-2023 Hospital Discharge instructions* Discharge Instructions* HOLDEN Ren - 09/08/2022 1:08 PM EDT Lifestyle and risk factor management are recommended to prevent from recurrent atrial fibrillation including: - Decrease weight. [place] BMI is <30 kg/M2. 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 - Decrease caffeine to no more than 1 cup per day and make sure it is before noon. - Eliminate soft drinks altogether. - Make sure to get 6-8 hours of sleep each night and go to bed at the same time each night within +/- 1 hour. * Discharge Instr - Activity* HOLDEN Ren - 09/07/2022 9:59 AM EDT [...] machinery or power equipment for 24 hours. * Discharge Instr - Diet* HOLDEN Ren - 09/07/2022 9:59 AM EDT Diet: Your [...] help manage and maintain consistent blood glucose levels.Simple sugars are limited and carbohydrate intake is balanced throughout the day. Avoid adding saltto your food and use heart healthy fats such as canola or olive oil. * Discharge Instr - Notify* HOLDEN Ren - 09/07/2022 10:00 AM EDT Images from [...] need to worry about nausea and vomiting, butthey can be signs of other illnesses. The doctor has checked you carefully, but problems can develop later. If you notice any problems ornew symptoms, get medical treatment right away. Follow-up care is a jamison part of your treatment and safety. Be sure to make and go to all appointments, and call your doctor if you are having problems. It's also a good idea to know your test resultsand keep a list of the medicines you [...] Where can you learn more? Go to https://[email or web address].net/osumychart. * Discharge Instr - Wound Care* HOLDEN Ren - 09/07/2022 10:00 AM EDT [...] seek immediate medical care. [facility] + Plan note* Assessment & Plan Note - HOLDEN Ren - 09/08/2022 12:54 PM EDTAssociated Problem(s): Morbid obesity BMI 53.43 Heart healthy carb controlled diet Encourage ambulation Lifestyle and risk factor management are recommended to prevent from recurrent atrial fibrillation including: - Decrease weight. [place] BMI is <30 kg/M2. 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 - Decrease caffeine to no more than 1 cup per day and make sure it is before noon. - Eliminate soft drinks altogether. - Make sure to get 6-8 hours of sleep each night and go to bed at the same time each night within +/- 1 hour. [facility]03-30-2023 Evaluation + Plan note* Assessment & Plan Note - HOLDEN Ren - 09/08/2022 12:49 PM EDTAssociated Problem(s): High risk medication use Sotalol initiation [...] up with Dr. Moya in 3-4 months [facility]03-30-2023 Evaluation + Plan note* Assessment & Plan Note - HOLDEN Ren - 09/08/2022 12:44 PM EDTAssociated Problem(s): Longstanding persistent atrial fibrillation Symptomatic; recurrent AF/AFl 1 week post cardioversion 02/2022 S/p PVI WACA and CTI RFA on 09/07/22 CHADS-VASc score=5 on Eliquis 5 mg BID QT/QTc prolonging after 3rd dose Decrease Sotalol 80 mg Q12hr and monitor for 2 more doses Remains in NSR w/1st deg AVB [facility]03-30-2023 Note* Plan of Care - Milka Joe RN - 09/08/2022 1:31 AM EDT Problem: Patient Care Overview Goal: Plan of Care Review Outcome: Ongoing Goal: Individualization & Mutuality Outcome: Ongoing Goal: Discharge Needs Assessment Outcome: Ongoing Goal: Interdisciplinary Rounds/Family Conf Outcome: Ongoing [facility]03-29-2023 History and physical note* HOLDEN Ren - 09/07/2022 9:08 AM EDT Chief Complaint HPI Sohail Thompson is a 56 y.o. male with persistent [...] UNIT/ML Solution Pen-injector injection Inject 47 Units underthe skin at bedtime. 09/06/2022 Vascepa 1 g [...] the last dose taken. 09/06/22 in AM [id number]- Vasc score: 5 ( HTN, DM, CVA2 [...] (Oral) Resp 22 Ht 1.956 m (6' 5) Wt (!) 206.4 kg (455 lb) SpO2 [...] and Dry Proceed with planned procedure [facility]03-29-2023 History and physical note* Felicita More, PHYLLIS-VECTOR CONTROL SPECIALIST - 09/07/2022 9:08 AM EDT Chief Complaint HPI Sohail Thompson is a 56 y.o. male with persistent [...] UNIT/ML Solution Pen-injector injection Inject 47 Units underthe skin at bedtime. 09/06/2022 Vascepa 1 g [...] the last dose taken. 09/06/22 in AM [id number]- Vasc score: 5 ( HTN, DM, CVA2 [...] (Oral) Resp 22 Ht 1.956 m (6' 5) Wt (!) 206.4 kg (455 lb) SpO2 [...] Proceed with planned procedure documented in this [facility]07-25-2022 History and physical note* Anjel Avilez MD - 01/03/2022 8:15 AM EDT UPDATED PROCEDURAL SEDATION HISTORY AND PHYSICAL EXAMINATION SERVICE DATE: 01/03/2022 SERVICE TIME: 8:01 AM PHYSICAL EXAM MUST BE COMPLETED ON ADMISSION PROCEDURE: Procedure Indications: The History and Physical (completed in the past 30 days) has been reviewed and the patient has beenexamined. The contents accurately reflect the patient's condition [...] SIGNATURE: Anjel Avilez MD PATIENT NAME: Sohail Thompson DATE: January 03, 2022 TIME: 8:01 AM * Anjel Avilez MD - 01/03/2022 8:15 AM EDT Images from the original note were not included. HISTORY AND PHYSICAL Sohail Thompson 1965 REFERRING PHYSICIAN: Self CHIEF COMPLAINT: Consult (Colonoscopy) HPI: The patient is a 55 year old male referred for endoscopy. Sohail notes a history of colon polyps. Patient denies any change in bowel habits, weight changes, blood in stools, black tarry stools orabdominal pain. The patient notes no upper GI complaints. Sohail has undergone prior endoscopy. Mostrecent colonoscopy 04/30/[address] Muir, records reviewed. [...] significant for hypertension, type II diabetes mellitus, obesity,atrial fibrillation. Patient follows with Dr. Auguste in [...] Take 20 mg by mouth once daily. Rtnor-4-CWV-EPA-Fish Oil 1,200 (144-216) mg cap Take by [...] entered by the nurse and reviewed by ma Nursing Notes: Stephanie Slater 08/30/2021 8:40 AM [...] C (98 F), height 195.6 cm (6' 5), weight (!) 194.6 kg (429 lb), SpO2 96 %. Body mass index is 50.87 kg/m . HEENT: Normal cephalic, ataumatic, pupils are equally round, sclera are anicteric, mucous membranesare moist, oropharynx is clear. Neck has no [...] Will plan for lower endoscopy. We discussed therisks and benefits of the planned endoscopy. I have informed the patient that complications can occur including failure to complete the endoscopy and perforation. The patient had the opportunity to ask questions concerning the planned endoscopy. My staff has also explained the procedure to the patient in understandable terms and has given the patient printed material concerning the procedure. Thepatient freely consents to surgery. The patient was offered a surgery/procedure at a [facility] facility. I have counseled the patient regarding [...] for instructions regarding diabetic medication, which may requireadjustment during bowel preparation and/or day of procedure [...] which included preparing to see the patient, [id number] patient care, completing clinical documentation, obtaining and/or reviewing separately obtained history, performing a medically appropriate examination, counseling and educating the pat ient/family/caregiver, ordering medications, tests, or procedures and communicating with other HCPs(not separately reported). Lynda Venegas PA-C documented in this encounterTr[facility]22 Miscellaneous Notes* Telephone Encounter - Felicita Kenyon LPN - 12/21/2021 3:39 PM EDT Received outside records. Sent to operations carlos alberto scanned. Felicita Kenyon LPN * Telephone Encounter - Elisa Knox LPN - 12/20/2021 4:26 PM EDT Sent fax request for patients most recent HgbA1c to [facility] Medical Records [phone]. Elisa Knox LPN documented in this encounterTrumbull [facility]07-11-2022 Instructions* Patient Instructions* Alma Jackson APRN.VECTOR CONTROL SPECIALIST - 12/20/2021 3:50 PM EDT PATIENT PREOPERATIVE INSTRUCTIONS Anjel Avilez MD has scheduled you for your procedure at this surgery center: [facility]: [phone] -- [address] [address]. Please read below carefully for your personalized [...] Procedures: - YOU MUST HAVE A RESPONSIBLE MINER ASSISTANT TAKE YOU HOME. A OUTSIDE PLANT FIELD ENGINEER OR SENIOR DESIGNER/ART DIRECTOR CANNOT BE MADE A RESPONSIBLE MINER ASSISTANT. - We recommend that a responsible person stays with you overnight to take care of you. - You cannot stay in a hotel alone after outpatient surgery. You will not be permitted to have yoursurgery, if you do not have someone to [...] Advance Directive, please fax a copy to [phone] or email to for it to be added to your chart. If you do not have an Advance Directive, you can find the appropriate form and more information at [email or web address]. We recommend that youcomplete the Advance Directive form found on the website and bring it with you the day of your surgery. It can be witnessed and scanned into your chart that day. Alma Jackson APRN.CNP documented in this encounterTrumbull [facility]07-11-2022 History and physical note * Alma Jackson APRN.CNP - 12/20/2021 3:48 PM EDT HISTORY AND PHYSICAL EXAMINATION SERVICE DATE: 12/20/2021 SERVICE TIME: 3:48 PM PRIMARY CARE PHYSICIAN: Harry Kelly MD REASON FOR VISIT: Sohail Thomposn is a 56 year old male who [...] significant for hypertension, type II diabetes mellitus, obesity,atrial fibrillation. Patient follows with Dr. Auguste in cardiology. REVIEW OF SYSTEMS: General: No weight loss, malaise or fevers. Neurological: Positive for: peripheral neuropathy (no rx). Respiratory: Positive for: obstructive sleep apnea and CPAP/BiPAP compliant. Negative for: asthma, COPD, pneumonia within 6 weeks, tobacco use and URI < 2 weeks. Cardiovascular: Positive for: anticoagulation therapy (Eliquis), [facility] hyperlipidemia (on rx) and hypertension (on rx) Negative for: arrhythmia, CAD, chest pain, CHF, congenital heart defect, DVT/PE, recent SC, murmur/valvular heart disease, open heart surgery and [...] for: chronic anti-coagulation/platelet meds. Patient is on anti- coagulation/platelet medication(s): DOAC. Negative for: anemia, bruises/bleeds easily [...] Prior to Admission medications as of 12/20/21 7748 Medication Sig Last Dose Taking rosuvastatin (CRESTOR) [...] or any previous visit (from the past 42130 hour(s)). Assessment A-fib ([facility]) Assessment: rate controlled, daily Eliquis, following [facility] Dr. Auguste, received clearance scanned into [facility]. Per Dr. Avilez's office preference no need [...] agents and insulin Last A1c requested from [facility] Morbid obesity (HCC) Assessment: Body mass index [...] sleepy during the daytime STOP-Bang Score: 7 [id number] Score: Age: <65 Sex: male CHF history: No Hypertension history: Yes Stroke/TIA/thromboembolism history: No Vascular disease history: No Diabetes history: Yes [id number] Score: 2 ARISCAT Score: Age: 51-80 Preoperative [...] SIGNATURE: Alma Jackson APRN.CNP PATIENT NAME: Sohail Thompson DATE: December 20, 2021 TIME: 3:48 PM PAGER/CONTACT #: documented in this encounterTrumbull [facility]03-22-2022 Miscellaneous Notes* Telephone Encounter - Darian García - 08/31/2021 3:55 PM EDT Cardiac clearance received and scanned * Telephone Encounter - Darian García - 08/31/2021 3:54 PM EDT 01-03-2022 Colon Jaramillo documented in this encounterTrumbull [facility]03-21-2022 History of Present illness Narrative* Lynda Venegas PA-C - 08/30/2021 8:38 AM EDT HISTORY AND PHYSICAL Sohail Thompson 1965 REFERRING PHYSICIAN: Self CHIEF COMPLAINT: Consult (Colonoscopy) HPI: The patient is a 55 year old male referred for endoscopy. Sohail notes a history of colon polyps. Patient denies any change in bowel habits, weight changes, blood in stools, black tarry stools orabdominal pain. The patient notes no upper GI complaints. Sohail has undergone prior endoscopy. Mostrecent colonoscopy 04/30/[address] Muir, records reviewed. [...] significant for hypertension, type II diabetes mellitus, obesity,atrial fibrillation. Patient follows with Dr. Auguste in [...] Take 20 mg by mouth once daily. [place]-7-GQI-EPA-Fish Oil 1,200 (144-216) mg cap Take by [...] entered by the nurse and reviewed by ma Nursing Notes: Stephanie Slater 08/30/2021 8:40 AM [...] C (98 F), height 195.6 cm (6' 5), weight (!) 194.6 kg (429 lb), SpO2 96 %. Body mass index is 50.87 kg/m . HEENT: Normal cephalic, ataumatic, pupils are equally round, sclera are anicteric, mucous membranesare moist, oropharynx is clear. Neck has no [...] Will plan for lower endoscopy. We discussed therisks and benefits of the planned endoscopy. I have informed the patient that complications can occur including failure to complete the endoscopy and perforation. The patient had the opportunity to ask questions concerning the planned endoscopy. My staff has also explained the procedure to the patient in understandable terms and has given the patient printed material concerning the procedure. Thepatient freely consents to surgery. The patient was [facility] I have counseled the patient regarding [...] for instructions regarding diabetic medication, which may requireadjustment during bowel preparation and/or day of procedure [...] which included preparing to see the patient, [id number] patient care, completing clinical documentation, obtaining and/or reviewing separately obtained history, performing a medically appropriate examination, counseling and educating the pat ient/family/caregiver, ordering medications, tests, or procedures and communicating with other HCPs(not separately reported). Lynda Venegas PA-C documented in this encounterTrumbull [facility]03-21-2022 Nurse Note* Stephanie Slater - 08/30/2021 8:36 AM EDT REVIEW OF SYSTEMS: General: The patient denies [...] Colonoscopy: 2018 Stephanie Slater [facility] Author Juan Owen [facility] Note Date/Time November 04, 2024 8:18a m [facility] Medical Records Department [address] [place] [address] Emergency Department Summary 11/04/24 MR#: [id number] Acct: [id number] Name: SOHAIL THOMPSON Rep #:[id number] : 1965 58 From: Juan Angel PCP: Dr. Harry Felder MD Status:RE G ER Location: ED HPI History of Present Illness Chief Complaint: Complaint Informant: patient Narrative Narrative: 58-year-old male presenting to the emergency room with a chief complaint of fever and urinary symptoms. Patient states for the past couple days he has had fever at home. He notes urinary frequency and dark urine. He notes he has a history of diabetes as well as Charcot foot as well as a history of atrial fibrillation status post cardiac ablation. He takes apixaban. He states that he has had abnormal renal function but he adjusted his diet and his renal function has returned to normal. Patient denies any vomiting. He denies any pain with this. He has had prior kidney stones but again is not having pain with this [facility] Medical History Polycythemia vera Ulcer of toe of right foot Junctional tachycardia (12/21/20) Chronic foot ulcer Obstructive sleep apnea Hyperlipidemia Morbid obesity Essential hypertension Callus of foot Diabetic foot ulcer Diabetes Arthritis Edema, lower extremity Type 2 diabetes mellitus with diabetic polyneuropathy Perineal abscess Diabetes type 2, uncontrolled Gout Scrotum, abscess Home Medications ?Medication ?Instructions ?Recorded ?Last Taken ?Type metformin 1,000 mg tablet 1,000 mg PO BIDCM 04/26/13 0 01/15/15 History amlodipine 10 mg tablet 10 mg PO DAILY 30 days #30 t abs 11/09/18 03/11/22 History rosuvastatin 10 mg tablet 10 mg PO DAILY 03/01/22 Unkn own History allopurinol 100 mg tablet 100 mg PO DAILY 09/20/22 Unk nown History empagliflozin 25 mg tablet 25 mg PO DAILY 01/31/23 Unk nown History (Jardiance) lisinopril 5 mg tablet 5 mg PO DAILY 01/31/23 Unkno wn History metoprolol succinate 50 mg 50 mg PO DAILY #90 tabs Unknown Rx tablet,extended release 24 hr apixaban 5 mg tablet (Eliquis) 5 mg PO BID #180 TABLET S 04/03/24 Unknown Rx icosapent ethyl 1 gram capsule 2 g (2 x 1 gram) PO BID #360 caps 07/01/24 Unknown Rx (Vascepa) cinnamon bark 500 mg capsule 1,000 mg PO DAILY 5 Unknown History (Cinnamon) insulin glargine 100 unit/mL (3 25 unit subcut QHS Unknown History mL) subcutaneous pen (Lantus Solostar U-100 Insulin) magnesium oxide 500 mg capsule 500 mg PO QDAY 10/03/24 Unknown History tirzepatide 15 mg/0.5 mL 15 mg subcut QWEEK 10/03/24 Unknown History subcutaneous pen injector (Mounjaro) cefpodoxime 200 mg tablet 200 mg PO BID 10 days #20 ta bs 11/04/24 Unknown Rx Allergy/AdvReac Type Severity Reaction Status Date / Time No Known Allergies Allergy Verified 10/03/24 15:30 Family History Other Diabetes Surgical History History of radiofrequency ablation procedure for cardiac arrhythmia (~09/07/22) History of cardiac radiofrequency ablation (09/07/22) History of cardioversion (03/11/22) Social History Smoking Status: Never smoker alcohol intake: never substance use type: does not use caffeine: Yes Type: carbonated beverages ROS ROS ED Constitutional Constitutional ED: Reports chills and fever(s); Denies weight loss Eyes Eyes: Denies change in vision or diplopia ENT ENT ED: Denies ear pain, rhinorrhea or sore throat Cardiovascular Cardiovascular: Denies chest pain, orthopnea, palpitations or racing heartbeat Respiratory/Chest Respiratory/Chest: Denies cough, dyspnea or orthopnea Gastrointestinal Gastrointestinal: Denies abdominal pain, diarrhea, nausea or vomiting Genitourinary Genitourinary ED: Reports urinary frequency; Denies dysuria or hematuria Musculoskeletal Musculoskeletal: Denies arthralgias or myalgias Integumentary Denies abscess or rash Neurologic Neurologic: Denies headache(s) or weakness Psychiatric Psychiatric: Denies anxiety, depression, suicidal ideation or suicidal thoughts Endocrine Endocrinology: Denies polydipsia, polyphagia or polyuria Allergic/Immunologic Allergic/Immunologic ED: Denies mouth swelling, tongue swelling or urticaria EXAM Physical Exam Const Vital Signs: 11/04/24 06:06 11/04/24 06:08 11/04/24 07:08 Temperature 99.0 F 99.0 F 99.2 F H Temperature Source Oral Oral Oral Pulse Rate 107 H 107 H 109 H Respiratory Rate 22 H 22 H 13 Blood Pressure 158/81 H 158/81 H 142/78 H Blood Pressure Mean 106 106 99 Pulse Ox 98 98 100 Oxygen Delivery Method Room Air Room Air Room Air Positive well nourished and well developed General Appearance ED: well developed and NAD HEENT Reports normocephalic, head/scalp atraumatic and moist mucous membranes Eyes PERRL and EOMs intact bilaterally Neck no lymphadenopathy, supple and no JVD Resp normal respiratory effort and clear to auscultation bilaterally Cardio regular rate, regular rhythm and no murmurs Rate: tachycardic GI normal to inspection, nondistended, normoactive bowel sounds and non-tender Palpation: soft Back/Spine no CVA tenderness and normal ROM Extremity normal to inspection General Extremety ED: Negative for edema General Extremity: Negative for edema Neuro oriented x3 and CN's II-XII intact bilaterally Sensorium / Orientation: alert Motor Exam: strength 5/5 throughout Psych mental status grossly normal Mood & Affect: Negative for depressed or tearful Skin no rashes or lesions noted and no wounds Sepsis Attestation Sepsis Alert: Yes Sepsis Attestation: Sepsis Ruled Out Date exam was performed: 11/04/24 Time exam was performed: 07:30 Possible Source of Sepsis: Genitourinary MDM MDM MDM Narrative Medical decision making narrative: Differential diagnosis includes cystitis/UTI/pyelonephritis kidney stone acute kidney injury sepsis bacteremia diverticulitis Patient's abdominal exam is benign I do not elicit any pain on palpation do not feel diverticulitis is likely. His white count is elevated 18.8 with normal lactic acid. This is at 1.8. Creatinine 1.16. Normal electrolytes INR 1.4 urinalysis is positive nitrates positive leukocyte Estrace 10-25 white blood cells 2+ bacteria it is cloudy. Patient received IV fluids his temperature is 98.6 on my direct oral temperaturereading. Using shared decision making I spoke with the patient with the above results. We have obtained blood and urine cultures. He would prefer to be treated at home if possible as compared to admission. I think this is a viable option. I will give him a dose of Rocephin and start him on cefpodoxime. He appears highly competent and understands return instructions. History & Record Review Discussion w/independent historian: Patient Additional record(s) reviewed:: Prior inpatient record, Prior ED visit and Priorlabs Lab Data Attestation: I reviewed the patient's lab results. Labs: Laboratory Results - last 24 hr 11/04/24 11/04/24 06:15 06:30 WBC 18.8 H RBC 5.86 Hgb 17.1 H Hct 50.5 MCV 86.2 MCH 29.2 MCHC 33.9 RDW Std Deviation 43.0 RDW Coeff of Steven 13.7 Plt Count 188 MPV 8.9 Immature Gran % (Auto) 0.800 Neut % (Auto) 83.6 H Lymph % (Auto) 5.0 L [place] % (Auto) 10.0 Eos % (Auto) 0.2 Baso % (Auto) 0.4 Absolute Neuts (auto) 15.7 H Absolute Lymphs (auto) 0.93 Nucleated RBC % 0 Platelet Estimate A RBC Morphology NORM C+C PT 17.4 H INR 1.4 APTT 32.1 Sodium 136 Potassium 4.3 Chloride 100 Carbon Dioxide 23.6 Anion Gap 12 BUN 17 Creatinine 1.16 Estim Creat Clear Calc 126.50 Est GFR (MDRD) Non-Af 74 BUN/Creatinine Ratio 14.9 Glucose 139 H Lactic Acid 1.8 Calcium 9.3 Total Bilirubin 1.41 H AST 11 ALT 9 Alkaline Phosphatase 56 Total Protein 6.9 Albumin 3.8 Globulin 3.1 Albumin/Globulin Ratio 1.2 Urine Color Yellow Urine Clarity Cloudy Urine pH 6.0 Ur Specific Ranger 1.015 Urine Protein 30 H Urine Glucose (UA) 1000 H Urine Ketones 15 H Urine Occult Blood 25 H Urine Nitrite Positive H Urine Bilirubin Negative Urine Urobilinogen Normal Ur Leukocyte Esterase 500 H Urine RBC 0 SEEN Urine WBC 10-25 SEEN Ur Squamous Epith Cells 0-5 SEEN Ur Transition Epith Cell 0-5 SEEN Urine Bacteria 2+ Urine Mucus 0 SEEN Discharge Plan Triage Chief Complaint: Complaint ED Provider: Juan Owen Dx/Rx/DC Orders Clinical Impression: Acute UTI, Acute febrile illness Instructions: ED Urinary Tract Infections in Men Prescriptions: New cefpodoxime 200 mg tablet 200 mg PO BID 10 Days Qty: 20 0RF Rx Instructions: must administer with a meal/food No Action amlodipine 10 mg tablet 10 mg PO DAILY 30 Days Qty: 30 rosuvastatin 10 mg tablet 10 mg PO DAILY Patient Comments: Take 1 tablet by mouth daily allopurinol 100 mg tablet 100 mg PO DAILY Patient Comments: Take 1 tablet by mouth daily cinnamon bark [Cinnamon] 500 mg capsule 1,000 mg PO DAILY lisinopril 5 mg tablet 5 mg PO DAILY Jardiance 25 mg tablet 25 mg PO DAILY magnesium oxide 500 mg capsule 500 mg PO QDAY insulin glargine [Lantus Solostar U-100 Insulin] 100 unit/mL (3 mL) insulin pen 25 unit subcut QHS Mounjaro 15 mg/0.5 mL pen injector 15 mg subcut QWEEK metformin 1,000 MG tablet 1,000 mg PO BIDCM Patient Comments: DIABETES metoprolol succinate 50 mg tablet extended release 24 hr 50 mg PO DAILY Qty: 90 3RF Eliquis 5 mg tablet 5 mg PO BID Qty: 180 3RF icosapent ethyl [Vascepa] 1 gram capsule 2 g PO BID Qty: 360 3RF Primary Care Provider: Harry Felder Referrals: Harry Felder MD [Primary Care Provider] - 3-5 Days if not improving Activity Restrictions/Additional Instructions: Please return to the emergency department if you are worsening vomiting unable to keep your medications down or have concerns Print Language: Malaysian Disposition Disposition: Home, Self Care What to do if you have Problems For any increased pain, shortness of breath, bleeding, nausea or vomiting, chestpain, or any unexpected problems, contact your Primary Care Provider. Call [facility] ([phone]) or report to the closest Emergency Room. Call 911 if necessary. 11/04/24817 <Electronically signed by Juan Owen DO> Cosigner Signature (if applicable): CC: Dr. Harry Felder MD ~ Signed [facility] Work Phone: Evaluation note* Diagnosis Encounter for colonoscopy due to history of colonic polyp- Primary Special screening for malignant neoplasms, colon [facility]* Diagnosis Onset Date Resolution Status Charcot foot due to diabetes mellitus acute Diabetes mellitus with diabetic polyneuropathy acute Essential hypertension acute Hyperlipidemia acute Morbid obesity acute Ulcer of toe of right foot a [facility] Work Phone: Evaluation note* Diagnosis Personal history of colonic polyps- Primary documented in this encounter [facility] note* Diagnosis Pre-operative examination- Primary Preoperative examination, [...] apnea (adult) (pediatric) documented in this encounter [facility] note* Diagnosis Personal history of colonic polyps documented in this encounter [facility] noteNo assessment [facility] Work Phone: [facility]* Diagnosis Onset Date Resolution Status Atrial flutter with rapid ventricular response acute Essential hypertension acute Atrial flutter with rapid ventricular response acute Atrial tachycardia [facility] Work Phone: Evaluation note* Diagnosis Palpitations Paroxysmal atrial fibrillation Atrial fibrillation [facility] Diagnosis Longstanding persistent atrial fibrillation- Primary Palpitations Paroxysmal atrial fibrillation Atrial fibrillation Longstanding persistent atrial fibrillation High risk medication use Encounter for long-term (current) use of other medications High risk medication use Encounter for long-term (current) use of other medications Morbid obesity Palpitations Paroxysmal atrial fibrillation Atrial fibrillation [facility] Diagnosis Longstanding persistent atrial fibrillation- Primary [facility] Diagnosis Onset Date Resolution Status Carotid stenosis acute Atrial flutter with rapid ventricular response acute Essential hypertension [facility] Work Phone: Evaluation note* Diagnosis Onset Date Resolution Status Atrial flutter with rapid ventricular response acute Essential hypertension chron ic [facility] Work Phone: Evaluation note* Diagnosis Skin infection- Primary Unspecified local infection of skin and subcutaneous tissue documented in this encounter [facility] note* Diagnosis Community acquired pneumonia of left lung, unspecified part of lung- Primary Acute cough Acute cough documented in this encounter [facility] note* Diagnosis Acute cough documented in this encounter [facility] note* Diagnosis Wheezing- Primary Subacute cough Cough [facility] Additional Instructions Please return to the emergency department if you are worsening vomiting unable to keep your medications down or have concernsWOhio[facility] Work Phone: Reason for referral (narrative)* Outpatient Procedure (Routine) - Authorized Specialty Diagnoses / Procedures Referred By Jason randhawa Referred To Contact [facility] [place] Diagnoses Personal history of colonic polyps Procedures COLONOSCOPY SCREENING COLONOSCOPY FLX DX W/COLLJ SPEC WHEN PFLynda Landin PA-C [address] [place] [id number] [facility] Disease [place] [id number] Referral ID Status Reason Start Date Expiration Date Visits Requested Visits Authorized [id number] Authorized Auto-Generat ed Referral 08/30/2021 08/30/2022 1 1 [facility] for referral (narrative)* Outpatient Procedure (Routine) - Closed Specialty Diagnoses / Procedures Referred By Jason randhawa Referred To Contact [facility] Diagnoses Personal history of colonic polyps Procedures COLONOSCOPY SCREENING COLONOSCOPY FLX DX W/COLLJ SPEC WHEN PFLynda Landin PA-C [address] [place] [address] [place] [phone] Referral ID Status Reason Start Date Expiration Date V isits Requested Visits Authorized [id number] Closed Auto-Generate d Referral 08/30/2021 08/30/2022 1 1 [facility] for referral (narrative)* Consultation (Routine) - New Request Specialty Diagnoses / Procedures Referred By Jason randhawa Referred To Contact Cardiovascular Medicine Diagnoses High risk medication use Felicita More APRN-CNP [address] [place] [address] Referral ID Status Reason Start Date Expiration Date V isits Requested Visits Authorized [id number] New Request 09/08/2022 10/03/2023 1 1 * Radiology (Routine) - New Request Specialty Diagnoses / Procedures Referred By Jason randhawa Referred To Contact Diagnoses Longstanding persistent atrial fibrillation Procedures MOBILE CARDIAC TELEMETRY Felicita More APRN-CNP [address] [place] [address] Referral ID Status Reason Start Date Expiration Date V isits Requested Visits Authorized [id number] New Request 09/07/2022 10/02/2023 1 1 * Radiology (Routine) - New Request Specialty Diagnoses / Procedures Referred By Jason randhawa Referred To Contact Procedures ECG Felicita More APRN-CNP [address] [facility] [place] [address] Referral ID Status Reason Start Date Expiration Date V isits Requested Visits Authorized [id number] New Request 09/07/2022 10/02/2023 1 1 [facility] for referral (narrative)No reason for referral information availableWOhioHealth [facility] Work Phone: Reason for visit Narrative* Outpatient Procedure (Routine) - Closed Specialty Diagnoses / Procedures Referred By Jason randhawa Referred To Contact [facility] Diagnoses Personal history of colonic polyps Procedures COLONOSCOPY SCREENING COLONOSCOPY FLX DX W/COLLJ SPEC WHEN PFRMD Lynda Venegas PA-C [address] [place] [address] [facility] [address] [place] [address] Referral ID Status Reason Start Date Expiration Date V isits Requested Visits Authorized [id number] Closed Auto-Generate d Referral 08/30/2021 08/30/2022 1 1 [facility] for visit Narrative* Auth/Cert Specialty Diagnoses / Procedures Referred By Contac t Referred To Contact Diagnoses Palpitations Paroxysmal atrial fibrillation Palpitations [R00.2] Paroxysmal atrial fibrillation [I48.0] Procedures AR COMPRE EP EVAL ABLTJ ATR FIB PULM VEIN ISOLATION ABLATION SCHED INTERCARDIAC A-FIB TRANSEPTAL BY PULM VEIN ISOLATION W/EP EVAL ([id number]) Kenyon Moya MD [address] [place] [address] [facility] [address] [place] [address] Referral ID Status Reason Start Date Expiration Date Visits Re quested Visits Authorized [id number] 1 1 [facility] Summary Purpose Family History No Family History Records Found Relationship Condition Age at Onset Recorded Date/T dahiana Not Specified Diabetes mellitus Unknown Advance Directives No Advanced Directives Records Found Advance Directive Response Recorded Date/ Time Advance Directives Yes January 15, 015 5:26pm Living Will Yes January 15, 2015 5:26pm Power of Audio Technician Yes January 15 5:26pm Documents on File Type Date Recorded Patient 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 Expl anation Advance Directive(s) 01/03/2022 8:01 AM Advance Directive Response Recorded Date/ Time Advance Directives on File Yes Teresa [facility] [place] 2021 10:55am Name of Medical Power of Audio Technician Sulema Thompson- March 11, 2022 10:55am Advance Directives Yes February 10:55am Living Will Yes March 11, 2022 10:55am Power of Audio Technician Yes February 10:55am Advance Directive Response Recorded Date/ Time Advance Directives on File Yes Teresa kathryn 2021 9:55am Name of Medical Power of Audio Technician Sulema Thompson- March 11, 2022 9:55am Advance Directives Yes February 9:55am Living Will Yes March 11, 2022 9:55am Power of Audio Technician Yes February 9:55am Latest Code Status on File Code Status Date Activated Date Inactivated Comments Full Code 09/08/2022 12:44 PM Advance Directive Response Recorded Date/ Time Advance Directives Yes February 10:55am Living Will Yes March 11, 2022 10:55am Power of Audio Technician Yes February 10:55am Advance Directive Response Recorded Date/ Time Advance Directives Yes February 10:55am Living Will No January 18, 2023 9:13am Power of Audio Technician No January 18 9:13am Advance Directive Response Recorded Date/ Time Advance Directives Yes February 9:55am Living Will No January 18, 2023 8:13am Power of Audio Technician No January 18 8:13am Advance Directive Response Recorded Date/ Time Advance Directives Yes February 10:55am Advance Directive Response Recorded Date/ Time Living Will No January 18, 2023 9:13am Do you have a Healthcare Power of Audio Technician? No January 18, 2023 9:13am Do you have a Healthcare Power of Audio Technician? No November 04, 2024 6:08am Advance Directives Yes February 10:55am Chief Complaint and Reason for Visit Chief Complaint WOUND Reason for Visit Charcot foot due to diabetes mellitus Diabetes mellitus with diabetic polyneuropathy Essential hypertension Hyperlipidemia Morbid obesity Ulcer of toe of right foot Chief Complaint EORDER Chief Complaint EORDER 9 M FU A-FLUTTER A-FLUTTER Reason for Visit Atrial flutter with rapid ventricular response Essential hypertension Atrial flutter with rapid ventricular response Atrial tachycardia Chief Complaint EORDER 9 M FU A-FLUTTER A-FLUTTER A-FLUTTER 1 wk s/p CCV EKG Reason for Visit Atrial flutter with rapid ventricular response Essential hypertension Atrial flutter with rapid ventricular response Atrial tachycardia Chief Complaint Amb Documentation Amb Documentation Chief Complaint Amb Documentation SWOLLEN SCROTUM DIZZINESS Chief Complaint DIZZINESS Consult-CAROTID STENOSIS S/P OSU ABLATION (SCANNED) Occlusion and stenosis of unspecified carotid kait Reason for Visit Carotid stenosis Atrial flutter with rapid ventricular response Essential hypertension Chief Complaint DIZZINESS Consult-CAROTID STENOSIS S/P OSU ABLATION (SCANNED) Occlusion and stenosis of unspecified carotid kait INT LABS Reason for Visit Carotid stenosis Atrial flutter with rapid ventricular response Essential hypertension Chief Complaint INT LABS 3 M FU EORDERS Reason for Visit Atrial flutter with rapid ventricular response Essential hypertension Chief Complaint 3 M FU EORDERS E ORDER Reason for Visit Atrial flutter with rapid ventricular response Essential hypertension Chief Complaint Admit Date E-ORDER June 22, 2024 7 :21am E ORDER LABS September 07, 2024 7:0 1am Chief Complaint Admit Date E ORDER LABS September 07, 2024 7:0 1am 1 Y FU October 03, 2024 3:2 3pm dysuria, fever November 04, 2024 6:05a m Reason for Visit Admit Date Atrial flutter with rapid ventricular re sponse October 03, 2024 3:23pm Essential hypertension October 03, 2024 3:23pm Medications Administered Section Inactive Administered Medications - [...] atrial fibrillation Procedures CT CARDIAC PULMONARY VENOGRAM AR CHG CT HEART CONTRAST EVAL CARDIAC STRUCT/MORPH Kenyon Moya MD [address] [place] [address] Referral ID Status Reason Start Date Expiration Date Visits Re quested Visits Authorized [id number] Closed 06/28/2022 07/23/2023 1 1 Specialty Diagnoses / Procedures Referred By Jason randhawa Referred To Contact Diagnoses Longstanding persistent atrial fibrillation Procedures ECG Kenyon Moya MD [address] [place] [address] Referral ID Status Reason Start Date Expiration Date V isits Requested Visits Authorized [id number] New Request 12/15/2022 01/09/2024 1 1 Specialty Diagnoses / Procedures Referred By Contac t Referred To Contact General Surgery Diagnoses Skin infection Procedures CONSULT TO GENERAL SURGERY OFFICE/OUTPATIENT NEW HIGH MDM 60 MINUTES Gill Scott PA-C [address] [place] [address] Referral ID Status Reason Start Date Expiration Date Visits Requested Visits Authorized [id number] Authorized PCP Requested Referral 10/28/2023 10/27/2024 1 1 Additional Source Comments (unrecognized sect ion and content) No Status Records FoundNo Status Records FoundNo Status Records FoundNo Status Records FoundNo Status Records Found INFORMATION SOURCE (unrecogn ized section and content) DATE CREATED AUTHOR 05/23/2018 [facility] ([place]) DATE CREATED AUTHOR AUTHOR'S ORGANIZ ATION 01/06/2022 [facility] DATE CREATED AUTHOR AUTHOR'S ORGANIZ ATION 12/21/2022 [facility] DATE CREATED AUTHOR AUTHOR'S ORGANIZ ATION 11/27/2023 [facility] DATE CREATED AUTHOR AUTHOR'S ORGANIZ ATION 11/21/2024 [facility] Source Comments (unrecognize d section and content) In the event this informatio n is protected by the Federal Confidentiality of Alcohol and Drug Abuse Patient Records regulations: The Federal rules restrict any use of the information to criminally investigate or prosecute any alcohol or drug abuse patient.[facility] the event this information is protected by the Federal Confidentiality of Alcohol and Drug Abuse Patient Records regulations: The Federal rules restrict any use of the information to criminally investigate or prosecute any alcohol or drug abuse patient.[facility] Center[facility] the event this information is protected by the Federal Confidentiality of Alcohol and Drug Abuse Patient Records regulations: The Federal rules restrict any use of the information to criminally investigate or prosecute any alcohol or drug abuse patient.[facility] Center[facility] the event this information is protected by the Federal Confidentiality of Alcohol and Drug Abuse Patient Records regulations: The Federal rules restrict any use of the information to criminally investigate or prosecute any alcohol or drug abuse patient.[facility] CenterIn the event this information is protected by the Federal Confidentiality of Alcohol and Drug Abuse Patient Records regulations: The Federal rules restrict any use of the information to criminally investigate or prosecute any alcohol or drug abuse patient.[facility] Center[facility] the event this information is protected by the Federal Confidentiality of Alcohol and Drug Abuse Patient Records regulations: The Federal rules restrict any use of the information to criminally investigate or prosecute any alcohol or drug abuse patient.[facility] Center[facility] the event this information is protected by the Federal Confidentiality of Alcohol and Drug Abuse Patient Records regulations: The Federal rules restrict any use of the information to criminally investigate or prosecute any alcohol or drug abuse patient.[facility] CenterIn the event this information is protected by the Federal Confidentiality of Alcohol and Drug Abuse Patient Records regulations: The Federal rules restrict any use of the information to criminally investigate or prosecute any alcohol or drug abuse patient.[facility] Center[facility] the event this information is protected by the Federal Confidentiality of Alcohol and Drug Abuse Patient Records regulations: The Federal rules restrict any use of the information to criminally investigate or prosecute any alcohol or drug abuse patient.[facility] CenterIn the event this information is protected by the Federal Confidentiality of Alcohol and Drug Abuse Patient Records regulations: The Federal rules restrict any use of the information to criminally investigate or prosecute any alcohol or drug abuse patient.[facility] CenterIn the event this information is protected by the Federal Confidentiality of Alcohol and Drug Abuse Patient Records regulations: The Federal rules restrict any use of the information to criminally investigate or prosecute any alcohol or drug abuse patient.[facility] Reason for Visit (unrecogniz ed section and content) Reason Comments Consult Colonoscopy Reason Comments 01-03-2022 Colon Jaramillo Reason Comments Consult Reason Comments Received Outside Medical Records [id number] Specialty Diagnoses / Procedures Referred By Contac t Referred To Contact Diagnoses Palpitations Paroxysmal atrial fibrillation Procedures CT CARDIAC PULMONARY VENOGRAM AR CHG CT HEART CONTRAST EVAL CARDIAC STRUCT/MORPH Kenyon Moya MD [address] [place] [address] Referral ID Status Reason Start Date Expiration Date Visits Requested Visits Authorized [id number] Authorized - 06/28/2022 07/23/2023 1 1 Reason Comments Irregular Heart Beat Reason Comments Derm Problem cyst on left shoulde r x 2 days Reason Comments Patient Question Reason Comments Cough Chest congestion x1. 5wks Reason Comments Cough Congestion . Care Teams (unrecognized sec tion and content) Ship Liner Relationship Specialty Start Date End Date Harry Kelly MD PCP - General 06/17/08 Ship Liner Relationship Specialty Start Date End Date Harry Kelly MD PCP - General 06/17/08 Ship Liner Relationship Specialty Start Date End Date Harry Kelly MD PCP - General 06/17/08 Ship Liner Relationship Specialty Start Date End Date Harry Kelly MD PCP - General 06/17/08 Ship Liner Relationship Specialty Start Date End Date Harry Felder [address] [place] [address] PCP - General Family Practice 01/03/22 Ship Liner Relationship Specialty Start Date End Date Harry Felder MD [address] [place] [address] PCP - General Family Medicine 06/17/21 Thad Auguste MD [address] [place] [address] Cardiovascular Disease 06/24/22 Ship Liner Relationship Specialty Start Date End Date Harry Felder MD [address] [place] [address] PCP - General Family Medicine 06/17/21 Thad Auguste MD [address] [place] [address] Cardiovascular Disease 06/24/22 Ship Liner Relationship Specialty Start Date End Date Harry Felder MD [address] [place] [address] PCP - General Family Medicine 06/17/21 hTad Auguste MD [address] [place] [address] Cardiovascular Disease 06/24/22 Team Status: Active Member Role Status Dates Dr. Harry Kelly MD Family Provider Active Dr. Harry Felder MD Primary Care Provider Active Team Status: Active Member Role Status Dates Dr. Harry Felder MD Primary Care Provider Active Leonora Hannah Attending Provider Active Team Status: Inactive Member Role Status Dates Dr. Harry Felder MD Primary Care Pr ovider, Attending Provider, Referring Provider Active Ship Liner Relationship Specialty Start Date End Date Harry Felder MD [address] [place] [id number] PCP - General Family Medicine 06/17/21 Thad Auguste MD [address] [place] [address] Cardiovascular Disease 06/24/22 Team Status: Inactive Member Role Status Dates Dr. Harry Felder MD Primary Care Provider, Attend ing Provider Active Team Status: Inactive Member Role Status Dates Dr. Harry Felder MD Primary Care Provider Active Harry TENORIO MD Attending Provider Active Team Status: Inactive Member Role Status Dates Dr. Harry Felder MD Primary Care Provider Active Dr. Hung Nichole MD Emergency Provider Active Team Status: Inactive Member Role Status Dates Dr. Harry Felder MD Primary Care Provider, Referr ing Provider Active Felicia RANGEL, PA Attending Provider Active Team Status: Inactive Member Role Status Dates Dr. Harry Felder MD Primary Care Provider, Referr ing Provider Active CLAIRE Yeboah Attending Provider Active Team Status: Active Member Role Status Dates Dr. Harry Felder MD Primary Care Provider Active Dr. Ludwig Sprague MD Attending Provider Active Team Status: Inactive Member Role Status Dates Dr. Harry Felder MD Primary Care Provider Active CLAIRE Yeboah Attending Provider Active Team Status: Inactive Member Role Status Dates Dr. Harry Felder MD Primary Care Provider Active Dr. Hung Nichole MD Attending Provider, Emergency Pr ovider Active Team Status: Active Member Role Status Dates Dr. Harry Felder MD Primary Care Provider Active Dr. Ludwig Sprague MD Attending Provider Active CLAIRE Yeboah Referring Provider Active Team Status: Inactive Member Role Status Dates Dr. Harry Felder MD Primary Care Provider, Referr ing Provider Active Harry Barnes VOICE AND DATA TECHNICIAN, VOICE AND DATA TECHNICIAN-C Attending Provider Active Ship Liner Relationship Specialty Start Date End Date Harry Felder MD PCP - General Family Medicine 01/03/22 Ship Liner Relationship Specialty Start Date End Date Harry Felder MD PCP - General Family Medicine 01/03/22 Ship Liner Relationship Specialty Start Date End Date Harry Felder MD PCP - General Family Medicine 01/03/22 Ship Liner Relationship Specialty Start Date End Date Harry Felder MD PCP - General Family Medicine 01/03/22 Ship Liner Relationship Specialty Start Date End Date Harry Felder MD PCP - General Family Medicine 01/03/22 Ship Liner Relationship Specialty Start Date End Date Harry Felder MD PCP - General Family Medicine 01/03/22 Team Status: Inactive Member Role Status Dates Dr. Harry Felder MD Primary Care Provider Active Start: June 22, 2024 End: June 22, 2024 Dr. Harry Felder MD Attending Provider Active Start: June 22, 2024 End: June 22, 2024 Dr. Harry Felder MD Referring Provider Active Start: June 22, 2024 End: June 22, 2024 Team Status: Inactive Member Role Status Dates Dr. Harry Felder MD Primary Care Provider Active Start: September 07, 2024 End: September 07, 2024 Dr. Harry Felder MD Attending Provider Active Start: September 07, 2024 End: September 07, 2024 Dr. Harry Felder MD Referring Provider Active Start: September 07, 2024 End: September 07, 2024 Team Status: Inactive Member Role Status Dates Dr. Harry Felder MD Primary Care Provider Active Start: September 16, 2024 End: September 16, 2024 Dr. Harry Felder MD Attending Provider Active Start: September 16, 2024 End: September 16, 2024 Dr. Harry Felder MD Referring Provider Active Start: September 16, 2024 End: September 16, 2024 Team Status: Active Member Role Status Dates Dr. Harry Felder MD Primary Care Provider Active Team Status: Inactive Member Role Status Dates Dr. Harry Felder MD Primary Care Provider Active Start: October 03, 2024 End: October 03, 2024 Dr. Harry Felder MD Referring Provider Active Start: October 03, 2024 End: October 03, 2024 Dr. Thad Auguste MD Attending Provider Active S tart: October 03, 2024 End: October 03, 2024 Team Status: Inactive Member Role Status Dates Dr. Harry Felder MD Primary Care Provider Active Start: November 04, 2024 End: November 04, 2024 Dr. Juan Owen DO Emergency Provider Active Start: November 04, 2024 End: November 04, 2024 Team Status: Inactive Member Role Status Dates Dr. Harry Felder MD Primary Care Provider Active Start: November 04, 2024 End: November 04, 2024 Dr. Juan Owen DO Attending Provider Active Start: November 04, 2024 End: November 04, 2024 Dr. Juan Owen DO Emergency Provider Active Start: November 04, 2024 End: November 04, 2024 Team Status: Inactive Member Role Status Dates Dr. Harry Felder MD Primary Care Provider Active Start: 2024 End: 2024 Dr. Harry Felder MD Attending Provider Active Start: 2024 End: 2024 Dr. Harry Felder MD Referring Provider Active Start: 2024 End: 2024 Goals (unrecognized section and content) Goals may be documented in a n alternate sectionGoals may be documented in an alternate sectionGoals may be documented in an alternate sectionGoals may be documented in an alternate sectionGoals may be documented in an alternate sectionGoals may be documented in an alternate sectionGoals may be documented in an alternate sectionGoals may be documented in an alternate sectionGoals may be documented in an alternate sectionGoals may be documented in an alternate sectionGoals may be documented in an alternate sectionGoals may be documented in an alternate sectionGoals may be documented in an alternate sectionGoals may be documented in an alternate sectionGoals may be documented in an alternate section Scheduled Active and Recently Administ ered Medications (unrecognized section and content) Medication Order 09/08/2022 09/09/2022 09/10/2022 Allopurinol (ZYLOPRIM) tablet 100 mg 100 mg, Oral, DAILY, First dose on Mon09/08/22 at 0900, Until Discontinued 929 (Given - Provider: Clau Mondragon RN) 802 (Given - Provider: Clau Mondragon RN) 824 (Given - Provider: Justine Brantley, LACIE) amLODIPine (NORVASC) tablet 10 mg 10 mg, Oral, DAILY AT BEDTIME, First dose (after last modification) on Mon09/07/22 at 2100, Until Discontinued 2034 (Given - Provider: Milka Joe RN) 2021 (Given - Provider: Malcolm Jones RN) apixaban (ELIQUIS) tablet 5 mg 5 mg, Oral, EVERY 12 HOURS, First dose on Mon09/07/22 at 2200, Until Discontinued, Due to the rapid onset of action of apixaban, no overlap is needed with other anticoagulants (e.g. enoxaparin, heparin)., Indications: Atrial Fibrillation 0930 (Given - Provider: Clau Mondragon RN)2034 (Given - Provider: Milka Joe RN) 08 (Given - Provider: Clau Mondragon RN)2020 (Given - Provider: Malcolm Jones, LACIE) 08 (Given - Provider: Justine Brantley, LACIE) aspirin chewable tablet 81 mg 81 mg, Oral, DAILY, First dose on Mon09/07/22 at 1530, Until Discontinued 929 (Given - Provider: Clau Mondragon RN) 08 (Given - Provider: Clau Mondragon RN) 08 (Given - Provider: Justine Brantley, LACIE) dapagliflozin (FARXIGA) tablet 5 mg 5 mg, Oral, DAILY, First dose on Mon09/07/22 at 1700, Until Discontinued 935 (Given - Provider: Clau Mondragon RN) 08 (Given - Provider: Clau Mondragon RN) 08 (Given - Provider: Justine Brantley, LACIE) Insulin detemir (LEVEMIR) injection 47 Units 47 Units, Subcutaneous, DAILY AT BEDTIME, First dose on Mon09/07/22 at 2100, Until Discontinued 2034 (Given - Provider: Milka Joe RN - Comment: 193) 012 (Given - Provider: Malcolm Jones RN) Insulin lispro (HUMALOG) injection(Linked Group 1) Subcutaneous, 4 TIMES DAILY WITH MEALS & AT BEDTIME, First dose on Mon09/07/22 at 1700, Until Discontinued, Correction Factor: 151-200 = 1 unit; 201-250 = 2 units; 251-300 = 3 units; 301-350 = 4 units; 351-400 = 5 units; Kwikpen: Prime pen before each injection; refer to Pen Priming and Care Handout for further details. Warning! Confirm patient. Insulin pen is for labeled individual patient use ONLY. 0937 (Given - Provider: Clau Mondragon RN)1241 (Given - Provider: Clau Mondragon RN)1727 (Given - Provider: Clau Mondragon RN)2034 (Given - Provider: Milka Joe RN - Comment: 193) 0851 (Given - Provider: Clau Mondragon RN)1300 (Hold - Provider: Clau Mondragon RN - Reason: Other - Comment: I will assess pt's BG pre-dinner and administer medication as prescribed)172 (Given - Provider: Clau Mondragon RN)213 (Given - Provider: Malcolm Jones RN) 0828 (Given - Provider: Justine Brantley, LACIE)1200 (Canceled Entry - Provider: System Discharge - Comment: Automatically canceled at discontinue of medication order) metFORMIN (GLUCOPHAGE) tablet 1,000 mg 1,000 mg, Oral, 2 TIMES DAILY, First dose (after last modification) on Mon09/08/22 at 0900, Until Discontinued, Do not use in patients with eGFR < 30 ml/min; if eGFR falls below 45 ml/min: assess benefits and risks of continuing treatment. Discontinue with IV Dye administration. 0930 (Given - Provider: Clau Mondragon RN)1727 (Given - Provider: Clau Mondragon RN) 0803 (Given - Provider: Clau Mondragon RN)1753 (Given - Provider: Clau Mondragon RN) 0825 (Given - Provider: Justine Brantley RN) omega-3 acid ethyl esters (LOVAZA) capsule 2 g 2 g, Oral, 2 TIMES DAILY, First dose on Mon09/07/22 at 1700, Until Discontinued, Avoid using styrofoam cup during administration 0936 (Given - Provider: Clau Mondragon RN)1727 (Given - Provider: Clau Mondragon RN) 0804 (Given - Provider: Clau Mondragon RN)175 (Given - Provider: Clau Mondragon RN) 08 (Given - Provider: Justine Brantley RN) Pantoprazole (PROTONIX) tablet DR 40 mg 40 mg, Oral, DAILY, First dose on Mon09/08/22 at 0900, Until Discontinued, Swallow whole; do not crush or chew., Indications: Continuation of Home Therapy 0930 (Given - Provider: Clau Mondragon RN) 08 (Given - Provider: Clau Mondragon RN) 08 (Given - Provider: Justine Brantley RN) Rosuvastatin (CRESTOR) tablet 10 mg 10 mg, Oral, DAILY AT BEDTIME, First dose (after last modification) on Mon09/07/22 at 2100, Until Discontinued 2034 (Given - Provider: Milka Joe RN) 2020 (Given - Provider: Malcolm Jones RN) Sotalol (BETAPACE) tablet 120 mg (CANCELED) 120 mg, Oral, EVERY 12 HOURS NON-STANDARD, First dose on Mon09/08/22 at 1030, Until Discontinued, Physician must calculate QT here to order drug: QT equals: 316 ms. Doses should be by at least 10 hours from last administration. Please contact pharmacy/ordering provider for questions about timing of doses. 1033 (Given - Provider: Clau Mondragon RN)2237 (Given - Provider: Milka Joe RN) Sotalol (BETAPACE) tablet 120 mg (CANCELED) 120 mg, Oral, EVERY 12 HOURS NON-STANDARD, First dose (after last modification) on Mon09/09/22 at 0845, Until Discontinued, Physician must calculate QT here to order drug: QT equals: 316 ms. Doses should be by at least 10 hours from last administration. Please contact pharmacy/ordering provider for questions about timing of doses. 0851 (Given - Provider: Clau Mondragon RN) Sotalol (BETAPACE) tablet 80 mg 80 mg, Oral, EVERY 12 HOURS NON-STANDARD, First dose (after last modification) on Mon09/09/22 at 2100, Until Discontinued, Physician must calculate QT here to order drug: QT equals: 316 ms. Doses should be by at least 10 hours from last administration. Please contact pharmacy/ordering provider for questions about timing of doses. 2021 (Given - Provider: Malcolm Jones RN) 0732 (Given - Provider: Justine Brantley RN) PRN Medication Order 09/08/2022 09/09/2022 09/10/2022 Dextrose [...] Magnesium oxide 1005 (Given - Provider: Clau Mondragon RN) 0456 (Given - Provider: Milka Joe RN) 0533 (Given - Provider: Malcolm Jones [...] 1 HOUR NEEDED, 2 doses, Starting on 09/07/22 at 1043, Until 09/10/22 at 1220, Refractory [...] glucose is greater than 200md/dl, then notify Counter Stitcher. And BLOOD GLUCOSE (POC DEVICE) (CANCELED) Routine, [...] pharmacy or obtain from crash cart ++
And glucose (GLUTOSE) 40 % [...] at 1607, Until Specified
Who to Notify: Counter Stitcher
For all Blood Glucose LESS THAN 80 mg/dl, notify Counter Stitcher after treatment per Hypoglycemia in Non- Adults [...] BE BASED ON THE PRIMARY CLINICAL RECORDS. [employer] provides no warranty or guarantee of the accuracy or completeness of information in this document.
[2025-03-15 08:36] LABS: Creatinine, Urine (random) 67.00 mg/dL (39.00-259.00); Microalbumin,Random Urine 33.6 mg/L (<20 mg/L)
== END 2025-03-15 23:59 | disposition home or self-care (01) ==
LOC: LAB 07:08
PROVIDERS: PCP Family Medicine; Referring Provider Family Medicine; Visit Provider Family Medicine
DX: E11.8 Type 2 diabetes mellitus with unspecified complications (principal)
CPT/HCPCS: 82043; 82570

== ENCOUNTER → 2025-03-18 | Outpatient (CLI) | payer BC, SELFPAY ==
--- NOTE | 2025-03-18 15:40 | RAD_ITS ---
PROCEDURE: SACRUM-COCCYX MIN 2 VIEWS 03/18/2025 REASON FOR EXAM: PAIN Pain and tailbone for a couple of months. No known injury. TECHNIQUE: Procedure Code: RADSAC Modality: DX Procedure: SACRUM-COCCYX MIN 2 VIEWS COMPARISON: None FINDINGS: Bones: The visualized components of the sacrum and coccyx appear grossly unremarkable. No obvious acute fractures are seen. Joints: Very minimal osteoarthritic changes of the SI joints are noted. Pubic symphysis is unremarkable. Hip joints appear unremarkable. Other: Spondylosis of the lower lumbar spine is noted. There is disc space narrowing involving the L5-S1 disc space. RAD/Sacrum-Coccyx min 2 Views IMPRESSION: No displaced sacral fractures or coccyx fractures are noted. Very minimal osteoarthritic changes involving the SI joints bilaterally. Spondylosis of the lower lumbar spine. Degenerative disc disease involving the L5-S1 disc space. Reading Location: [id number]
[2025-03-18 17:45] LABS: Hematocrit 52.6 % (40-54); Hemoglobin 17.8 g/dL (13.0-16.5); Immature Granulocytes Count 0.090 X10^3/uL (0.0-0.0); Mean Corp Hgb Conc 33.8 g/dL (32-36); Mean Corpuscular Volume 84.7 fL (80-94); Mean Platelet Vol. 9.1 fl (6.2-12.0); NRBC Flagged by Analyzer 0 % (0-5); Platelet Count 247 K/mm3 (150-450); RBC Distribution Width CV 13.7 % (11.6-14.6); RBC Distribution Width SD 41.9 fl (35.1-43.9); Red Blood Count 6.21 M/mm3 (4.6-6.2); White Blood Count 9.1 K/mm3 (4.4-11.0)
[2025-03-18 18:25] LABS: AST(SGOT) 16 U/L (<=37); Alanine Aminotransfer ALT/SGPT 12 U/L (<=46); Albumin, Serum 4.4 g/dL (3.5-5.0); Alkaline Phosphatase 56 U/L (40-129); Anion Gap 13 (5-15); BUN 15 mg/dL (4-19); BUN/Creat Ratio 13.9 RATIO (10-20); Calcium,Total 10.0 mg/dL (7.6-11.0); Carbon Dioxide 23.3 mmol/L (21.0-32.0); Chloride 102 mmol/L (98-108); Cholesterol 122 mg/dL (<=200); Globulin 3.5 g/dL (2.2-4.2); Glucose 93 mg/dL (70-99); Low Density Lipoprotein Calc. 51 mg/dL; Potassium 4.2 mmol/L (3.3-5.1); Triglycerides 163 mg/dL; Very Low Density Lipoprotein 33 mg/dL (5-40); cholesterol:hdl ratio screen 3.18
== END | disposition home or self-care (01) ==
LOC: MTRAD 15:39
PROVIDERS: PCP Family Medicine; Referring Provider Family Medicine; Visit Provider Family Medicine
DX: E11.69 Type 2 diabetes mellitus with other specified complication (principal); M53.3 Sacrococcygeal disorders, not elsewhere classified
CPT/HCPCS: 36415; 72220; 80053; 80061; 83036; 85025